=== PATIENT | male | born 1955 | race Caucasian/White ===

== ENCOUNTER 2020-07-04 20:56 | Emergency (ER) | payer MEDICARE, OTHER ==
--- NOTE | 2020-07-04 21:10 | ED Physician Documentation ---
PD HPI DYSPNEA - Stated complaint Stated Complaint: SOA - History obtained from History obtained from: Patient - History of Present Illness Timing - onset: How many days ago (4) Timing - duration: Days Timing - details: Gradual onset Pain level max: 0 Pain level now: 0 Inciting event(s): Out of meds (ran out of lasix 4 days ago) Improved by: Rest Worsened by: Exertion, Laying flat Associated symptoms: Bilateral edema. No: Fever, Cough, Hemoptysis, Chest pain / discomfort Recently seen: Not recently seen - Additional information Additional information: c/o gradual onset dyspnea four days ago without apparent inciting event. dyspnea has gradually been worsening. it is worse with lying supine. Patient uses 2 L/min NC day/night, with CPAP when he sleeps. he ran out of lasix 4 days ago; he says he takes 2 tablets of 40mg lasix BID (I reviewed this dose with him twice and he says he is certain he takes 80mg BID for total of 160mg per day). He denies chest pain, fever, cough. Review of Systems Constitutional: denies: Fever, Chills, Sweats Cardiac: reports: Pedal edema. denies: Chest pain / pressure, Palpitations Respiratory: reports: Dyspnea, Cough. denies: Wheezing GI: reports: Reviewed and negative : denies: Dysuria, Frequency Musculoskeletal: reports: Extremity swelling PD PAST MEDICAL HISTORY - Past Medical History Cardiovascular: Hypertension, High cholesterol Respiratory: Sleep apnea, CPAP use Endocrine/Autoimmune: Type 2 diabetes GI: Hiatal hernia : Frequency HEENT: None Musculoskeletal: Osteoarthritis, Chronic back pain Derm: Other - Past Surgical History General: Hiatal hernia repair - Present Medications Home Medications: Ambulatory Orders Medication Instructions Recorded Confirmed Amlodipine Besylate 2.5 mg PO 02/26/14 02/26/14 Aspirin [Aspir 81] 81 mg PO 02/26/14 02/26/14 Atorvastatin Calcium [Lipitor] 80 mg PO 02/26/14 02/26/14 Fenofibrate Nanocrystallized 160 mg PO 02/26/14 02/26/14 [Triglide] Furosemide [Lasix] 40 mg PO BID 02/26/14 02/26/14 Hydrochlorothiazide 50 mg PO 02/26/14 02/26/14 Insulin Aspart (Vial) [NovoLOG] 10 unit SUBQ ONCE 02/26/14 02/26/14 Insulin Glargine,Hum.rec.anlog 100 unit SQ 02/26/14 02/26/14 [Lantus] Losartan [Cozaar] 50 mg PO DAILY 02/26/14 02/26/14 Albuterol Sulf [Ventolin Hfa 1 - 2 puffs INH Q4HR PRN #1 inhaler 07/05/20 Inhaler] Cephalexin [Keflex] 500 mg PO Q6H #28 capsule 07/05/20 Furosemide [Lasix] 80 mg PO BID #10 tablet 07/05/20 predniSONE [Prednisone] 40 mg PO DAILY 3 Days #6 tablet 07/05/20 - Allergies Allergies/Adverse Reactions: Allergies Allergy/AdvReac Type Severity Reaction Status Date / Time No Known Drug Allergies Allergy Verified 07/04/20 21:10 PD ED PE NORMAL - Vitals Vital signs reviewed: Yes - General General: Alert and oriented X 3, No acute distress, Other (obese) - HEENT HEENT: Moist mucous membranes - Neck Neck: Supple, no meningeal sign - Cardiac Cardiac: RRR, No murmur - Respiratory Respiratory: No respiratory distress - Abdomen Abdomen: Soft, Non tender - Derm Derm: Normal color, Warm and dry PD ED PE EXPANDED - Respiratory Respiratory: Wheezing (bilateral end-expiratory), Decreased breath sounds - Extremities Extremities: Pedal edema bilateral Results - Vitals Vitals: Vital Signs - 24 hr 07/04/20 07/04/20 07/04/20 21:10 21:46 23:04 Temperature 37.2 C Heart Rate 66 64 65 Respiratory 20 22 16 Rate Blood Pressure 183/87 H 160/135 H O2 Saturation 93 92 07/04/20 07/05/20 23:30 03:00 Temperature Heart Rate 67 77 Respiratory 18 16 Rate Blood Pressure 155/101 H O2 Saturation 91 L Oxygen O2 Source Room air Oxygen Flow Rate 1.5 - EKG (time done) No standard instances Rate: Rate (enter#) (57) Rhythm: NSR [place]: Normal Intervals: Normal IN QRS: Normal Ischemia: Normal ST segments ( ) - Labs Labs: Laboratory Tests 07/04/20 07/04/20 07/04/20 21:40 21:40 21:40 WBC 7.9 RBC 4.93 Hgb 13.3 L Hct 43.8 MCV 88.8 MCH 27.0 MCHC 30.4 L RDW 15.7 H Plt Count 186 MPV 9.3 Neut # (Auto) 5.9 Lymph # (Auto) 1.3 L [place] # (Auto) 0.4 Eos # (Auto) 0.2 Baso # (Auto) 0.0 Absolute Nucleated RBC 0.00 Nucleated RBC % 0.0 D-Dimer 278.4 H Sodium 141 Potassium 4.3 Chloride 100 L Carbon Dioxide 33 H Anion Gap 8.0 BUN 21 H Creatinine 0.9 Estimated GFR (MDRD) 84 L Glucose 180 H Calcium 9.1 Total Bilirubin 0.8 AST 18 ALT 20 Alkaline Phosphatase 85 Troponin I High Sens B-Natriuretic Peptide Total Protein 7.1 Albumin 3.3 Globulin 3.8 Albumin/Globulin Ratio 0.9 L Lipase 32 Urine Color Urine Clarity Urine pH Ur Specific [place] Urine Protein Urine Glucose (UA) Urine Ketones Urine Occult Blood Urine Nitrite Urine Bilirubin Urine Urobilinogen Ur Leukocyte Esterase Urine RBC Urine WBC Ur Squamous Epith Cells Urine Bacteria Ur Microscopic Review Urine Culture Comments 07/04/20 07/04/20 07/04/20 21:40 21:40 22:21 WBC RBC Hgb Hct MCV MCH MCHC RDW Plt Count MPV Neut # (Auto) Lymph # (Auto) [place] # (Auto) Eos # (Auto) Baso # (Auto) Absolute Nucleated RBC Nucleated RBC % D-Dimer Sodium Potassium Chloride Carbon Dioxide Anion Gap BUN Creatinine Estimated GFR (MDRD) Glucose Calcium Total Bilirubin AST ALT Alkaline Phosphatase Troponin I High Sens 16.4 B-Natriuretic Peptide 190 H Total Protein Albumin Globulin Albumin/Globulin Ratio Lipase Urine Color YELLOW Urine Clarity CLEAR Urine pH 6.0 Ur Specific [place] >=1.030 H Urine Protein 100 H Urine Glucose (UA) 250 H Urine Ketones NEGATIVE Urine Occult Blood TRACE-LYSE Urine Nitrite NEGATIVE Urine Bilirubin NEGATIVE Urine Urobilinogen 0.2 (NORMAL) Ur Leukocyte Esterase NEGATIVE Urine RBC 0-5 Urine WBC 0-3 Ur Squamous Epith Cells RARE Squamous Urine Bacteria None Seen Ur Microscopic Review INDICATED Urine Culture Comments NOT INDICATED - Rads (name of study) chest xray Radiology: Prelim report reviewed, See rad report PD MEDICAL DECISION MAKING - ED course Complexity details: reviewed results, re-evaluated patient, considered differential, d/w patient ED course: patient says his baseline pulse ox is mid/upper 80s-lower/mid 90s on 2 liters NC. On reevaluation after duoneb, IV lasix, and decadron, he has no wheezing and has improved aeration/breath sounds on auscultation. He has no evidence of emergent acute process, but given his symptom onset correlating with running out of lasix and large amount of BLE edema, will give dose of lasix and rx his outpatient lasix (I explained to him that I would only provide 5 days of this, as the dose seems particularly high and without seeing the actual prescription, I cannot be certain he is getting his dose correct). Given prednisone and albuterol MDI rx for possible COPD exacerbation. He was recently treated inpatient at another facility for right knee infection and he is worried this is the cause of some of his symptoms. He has no evidence of right knee infection, although his right ankle has confluent erythema and increased warmth to touch, and reasonable to treat this as cellulitis (thus given rocephin in ED and rx keflex). He was ambulatory in ED (to and from bathroom, then up/down hallway) without obvious respiratory distress or drop in pulse ox below what he says is approximating his baseline pulse ox. Departure - Departure Disposition: 01 Home, Self Care Clinical Impression: COPD exacerbation Cellulitis Qualifiers: Site of cellulitis: extremity Site of cellulitis of extremity: lower extremity Laterality: right Qualified Code(s): L03.115 - Cellulitis of right lower limb Condition: Good Instructions: ED Infec Skin Cellulitis, ED COPD Flare Prescriptions: Albuterol Sulf [Ventolin Hfa Inhaler] 1 - 2 puffs INH Q4HR PRN #1 inhaler PRN Reason: Shortness Of Air/Wheezing Cephalexin [Keflex] 500 mg PO Q6H #28 capsule Furosemide [Lasix] 80 mg PO BID #10 tablet predniSONE [Prednisone] 40 mg PO DAILY 3 Days #6 tablet Discharge Date/Time: 07/05/20 03:00
[2020-07-04] MEDS ORDERED: IPRATROPIUM/ALBUTEROL 3 ML NEB INH STA (21:31)
[2020-07-04 21:51] LABS: BASOPHILS % (AUTO) 0.5 %; EOSINOPHILS # (AUTO) 0.2 10^3/uL (0.0-0.7); EOSINOPHILS % (AUTO) 1.9 %; HGB - HEMOGLOBIN 13.3 g/dL (14.0-18.0); LYMPHOCYTES # (AUTO) 1.3 10^3/uL (1.5-3.5); LYMPHOCYTES % (AUTO) 15.9 %; MEAN CORPUSCULAR HGB CONC 30.4 g/dL (32.0-36.0); MEAN CORPUSCULAR VOLUME 88.8 fL (80.0-94.0); MEAN PLATELET VOLUME 9.3 fL (7.4-11.4); MONOCYTES # (AUTO) 0.4 10^3/uL (0.0-1.0); MONOCYTES % (AUTO) 5.5 %; NEUTROPHILS # (AUTO) 5.9 10^3/uL (1.5-6.6); NEUTROPHILS % (AUTO) 75.3 %; PLT - PLATELET COUNT 186 10^3/uL (130-450); RED BLOOD COUNT 4.93 10^6/uL (4.70-6.10); RED CELL DISTRIBUTION WIDTH 15.7 % (12.0-15.0); WHITE BLOOD COUNT 7.9 x10^3/uL (4.8-10.8)
[2020-07-04 22:10] LABS: ALBUMIN 3.3 g/dL (3.2-5.5); ALBUMIN/GLOBULIN RATIO 0.9 (1.0-2.2); BILIRUBIN,TOTAL 0.8 mg/dL (0.2-1.0); CALCIUM 9.1 mg/dL (8.5-10.3); CREATININE 0.9 mg/dL (0.6-1.2); TOTAL PROTEIN 7.1 g/dL (6.7-8.2)
[2020-07-04 22:28] LABS: BILIRUBIN,URINE NEGATIVE (NEGATIVE); GLUCOSE, URINE (UA) 250 mg/dL (NEGATIVE); KETONES,URINE (UA) NEGATIVE (NEGATIVE); LEUKOCYTE ESTERASE, URINE NEGATIVE (NEGATIVE); NITRITE,URINE NEGATIVE (NEGATIVE); OCCULT BLOOD,URINE TRACE-LYSE (NEGATIVE); PROTEIN,URINE 100 mg/dL (NEGATIVE); UROBILINOGEN,URINE 0.2 (NORMAL) E.U./dL (NORMAL)
[2020-07-04 22:30] LABS: CLARITY,URINE CLEAR (CLEAR)
[2020-07-04 22:36] LABS: BACTERIA,URINE None Seen /HPF (None Seen); RBC,URINE 0-5 /HPF (0-5); SQUAMOUS EPITHELIAL CELL,UR RARE Squamous (<= Few)
[2020-07-04] MEDS ORDERED: cefTRIAXone 1 GM in SODIUM CHLORIDE 0.9% MINIBAG 100 ML IV STA (23:39)
[2020-07-04] MEDS ORDERED: ALBUTEROL NEB 2.5 MG/3 ML INH STA (23:39)
[2020-07-04] MEDS ORDERED: DEXAMETHASONE 10 MG/ML VIAL IVP STA (23:39)
[2020-07-04] MEDS ORDERED: FUROSEMIDE 40 MG/4 ML VIAL IVP STA (23:40)
[2020-07-04] MEDS ORDERED: cefTRIAXone 1 GM VIAL ONE (23:48)
[2020-07-05 03:12] VITALS: BP 155/101
--- NOTE | 2020-07-05 10:34 | XRAY Report ---
PROCEDURE: Chest 2 View X-Ray INDICATIONS: dyspnea TECHNIQUE: 2 view(s) of the chest. COMPARISON: None. FINDINGS: Surgical changes and devices: None. Lungs and pleura: There is trace blunting of the costophrenic angle seen on the lateral view. No pneu mothorax is seen. Interstitial prominence is seen. No focal infiltrates are seen. Mediastinum: Mediastinal contours are normal. Heart size is moderately enlarged. Bones and chest wall: No suspicious bony abnormalities. Age-appropriate degenerative changes are se en. Soft tissues appear unremarkable. IMPRESSION: Cardiomegaly, interstitial prominence, and trace pleural effusions. Please consider janae estive heart failure. Note: No significant discrepancy from the preliminary report. Reviewed by: Delfino Stokes MD on 07/05/2020 9:33 AM MOMO Approved by: Delfino Stokes MD on 07/05/2020 9:33 AM MOMO Station ID: [id number]
== END 2020-07-05 03:00 | disposition home or self-care (01) ==
LOC: ED 20:56
DX: J44.1 Chronic obstructive pulmonary disease with (acute) exacerbation (principal); L03.115 Cellulitis of right lower limb; R60.0 Localized edema; I10 Essential (primary) hypertension; E11.9 Type 2 diabetes mellitus without complications; Z79.4 Long term (current) use of insulin; Z79.82 Long term (current) use of aspirin
CPT/HCPCS: 36415; 71046; 80053; 81001; 81003; 83690; 83880; 84484; 85025; 85379; 87086; 93005; 94640; 96365; 96375; 99284

== ENCOUNTER 2020-12-31 22:10 | Emergency (ER) | payer MEDICARE, OTHER ==
--- NOTE | 2020-12-31 22:20 | ED Physician Documentation ---
PD HPI DYSPNEA - Stated complaint Stated Complaint: SOA,LOW ENERGY - History obtained from History obtained from: Patient - History of Present Illness Timing - onset: How many days ago (4) Timing - details: Gradual onset, Waxing and waning Pain level now: 0 Inciting event(s): Other (no apparent inciting event). No: Out of meds Improved by: Rest Worsened by: Exertion Associated symptoms: Bilateral edema (chronic). No: Fever, Cough, Wheezing, Chest pain / discomfort, Palpitations Recently seen: Not recently seen - Additional information Additional information: per patient, "my oxygen level in my blood is mid/upper 90s but when I walk" (around in his house) "it drops to mid 70s and I can't breathe". Patient uses oxygen at home but he says he does not know his pulmonary diagnosis (I ask why he uses oxygen and he says "because I get short of breath"; I ask why he gets short of breath and he says "I don't know"). He denies chest pain. He says he has an establishing (first-time) appointment with a PMD on [facility] in 1 week. He moved from [place] 5 months ago but had been getting prescriptions from his PMD back in [place]. Review of Systems Constitutional: reports: Fatigue. denies: Fever, Chills, Sweats Cardiac: reports: Pedal edema. denies: Chest pain / pressure, Calf pain Respiratory: reports: Dyspnea. denies: Cough, Hemoptysis, Wheezing GI: reports: Diarrhea. denies: Abdominal Pain, Abdominal Swelling, Nausea, Vomiting : denies: Dysuria, Frequency Musculoskeletal: reports: Reviewed and negative Neurologic: reports: Headache. denies: Focal weakness, Numbness PD PAST MEDICAL HISTORY - Past Medical History Cardiovascular: Hypertension, High cholesterol Respiratory: Sleep apnea, CPAP use Endocrine/Autoimmune: Type 2 diabetes GI: Hiatal hernia : Frequency HEENT: None Musculoskeletal: Osteoarthritis, Chronic back pain Derm: Other - Past Surgical History General: Hiatal hernia repair - Present Medications Home Medications: Ambulatory Orders Medication Instructions Recorded Confirmed Amlodipine Besylate 2.5 mg PO DAILY 02/26/14 12/31/20 Aspirin [Aspir 81] 81 mg PO DAILY 02/26/14 12/31/20 Atorvastatin Calcium [Lipitor] 80 mg PO DAILY 02/26/14 12/31/20 Furosemide [Lasix] 40 mg PO BID 02/26/14 12/31/20 Insulin Glargine,Hum.rec.anlog 100 unit SQ DAILY 02/26/14 12/31/20 [Lantus] Losartan [Cozaar] 50 mg PO DAILY 02/26/14 12/31/20 Albuterol Sulf [Ventolin Hfa 1 - 2 puffs INH Q4HR PRN #1 inhaler 07/05/20 12/31/20 Inhaler] Furosemide [Lasix] 80 mg PO BID #10 tablet 07/05/20 12/31/20 Glipizide 10 mg PO BID 12/31/20 12/31/20 Metformin HCl [Fortamet] 1,000 mg PO BID 12/31/20 12/31/20 Tamsulosin [Flomax] 0.4 mg PO DAILY 12/31/20 12/31/20 - Allergies Allergies/Adverse Reactions: Allergies Allergy/AdvReac Type Severity Reaction Status Date / Time No Known Drug Allergies Allergy Verified 12/31/20 22:22 PD ED PE NORMAL - Vitals Vital signs reviewed: Yes - General General: Alert and oriented X 3, No acute distress, Well developed/nourished - HEENT HEENT: Moist mucous membranes - Neck Neck: Supple, no meningeal sign - Cardiac Cardiac: RRR - Respiratory Respiratory: No respiratory distress, Other (diminshed breath sounds bilaterally without wheeze, rales, rhonchi) - Abdomen Abdomen: Normal bowel sounds, Soft, Non tender, Non distended - Derm Derm: Normal color, Warm and dry PD ED PE EXPANDED - Cardiac Cardiac: Murmur Present (2/6 GATO at cardiac base) - Extremities Extremities: Pedal edema bilateral Results - Vitals Vitals: Vital Signs - 24 hr 12/31/20 12/31/20 12/31/20 22:18 22:21 23:14 Temperature 36.5 C 36.5 C 36.5 C Heart Rate 67 67 62 Respiratory 19 22 19 Rate Blood Pressure 128/100 H 128/100 H 145/89 H O2 Saturation 100 100 96 01/01/21 00:19 Temperature 36.5 C Heart Rate 65 Respiratory 19 Rate Blood Pressure 128/78 O2 Saturation 96 Oxygen O2 Source Nasal cannula Oxygen Flow Rate 3 - EKG (time done) No standard instances Rate: Rate (enter#) (61) Rhythm: NSR [place]: Normal Intervals: Prolonged NM, QRS normal QRS: Normal Ischemia: Normal ST segments - Labs Labs: Laboratory Tests 12/31/20 12/31/20 12/31/20 22:35 22:35 22:35 WBC 7.5 RBC 4.66 L Hgb 12.6 L Hct 44.0 MCV 94.4 H MCH 27.0 MCHC 28.6 L RDW 16.0 H Plt Count 214 MPV 9.7 Neut # (Auto) 5.3 Lymph # (Auto) 1.5 [place] # (Auto) 0.5 Eos # (Auto) 0.2 Baso # (Auto) 0.0 Absolute Nucleated RBC 0.00 Nucleated RBC % 0.0 Platelet Estimate NORMAL (130-450,000) Platelet Morphology NORMAL APPEARANCE RBC Morph Micro Appear NORMAL APPEARANCE Sodium 139 Potassium 4.5 Chloride 93 L Carbon Dioxide 38 H Anion Gap 8.0 BUN 27 H Creatinine 1.0 Estimated GFR (MDRD) 75 L Glucose 193 H Calcium 8.7 Total Bilirubin 1.1 H AST 16 ALT 24 Alkaline Phosphatase 86 B-Natriuretic Peptide 153 H Total Protein 7.1 Albumin 3.4 Globulin 3.7 Albumin/Globulin Ratio 0.9 L Lipase 28 - Rads (name of study) chest xray Radiology: Prelim report reviewed, See rad report PD MEDICAL DECISION MAKING - ED course Complexity details: reviewed old records, reviewed results, re-evaluated patient , considered differential, d/w patient ED course: patient is in NAD during ED stay with pulse ox on 2 liter NC consistently in upper 90s. He speaks in full sentences (no respiratory distress). Tonight's tests do not reveal any emergently concerning findings, with some results being comparable to previous (trace pleural effusion also on previous CXR, for example). I reviewed results of tests w/ patient and he is reassured by these findings. He will likely need further testing, but at this time this testing can be undertaken in the outpatient setting (for example, might benefit from echo US if not performed recently; patient says he does not recall). He is given a dose of decadron in ED for possible COPD exacerbation although, as noted in HPI, he does not know his pulmonary diagnosis. There is no evidence of fluid overload (CHF exacerbation) at this time, no evidence of infectious process. Departure - Departure Disposition: 01 Home, Self Care Clinical Impression: Dyspnea Condition: Good Instructions: ED Dyspnea Shortness of Breath Follow-Up: Jose Courtney MD [Primary Care Provider] - Comments: As we discussed, the results of tonight's tests do not show any concerning nor specific findings; the few, minor abnormalities are similar to previous findings when you were here in June. Follow up as scheduled with your doctor (call on Sunday to inquire as to possibly moving to a sooner appointment). Discharge Date/Time: 01/01/21 00:19
[2020-12-31] MEDS ORDERED: DEXAMETHASONE 10 MG/ML VIAL IVP STA (22:34)
[2020-12-31 22:48] LABS: BASOPHILS % (AUTO) 0.4 %; EOSINOPHILS # (AUTO) 0.2 10^3/uL (0.0-0.7); EOSINOPHILS % (AUTO) 2.3 %; HGB - HEMOGLOBIN 12.6 g/dL (14.0-18.0); LYMPHOCYTES # (AUTO) 1.5 10^3/uL (1.5-3.5); LYMPHOCYTES % (AUTO) 19.4 %; MEAN CORPUSCULAR HGB CONC 28.6 g/dL (32.0-36.0); MEAN CORPUSCULAR VOLUME 94.4 fL (80.0-94.0); MEAN PLATELET VOLUME 9.7 fL (7.4-11.4); MONOCYTES # (AUTO) 0.5 10^3/uL (0.0-1.0); MONOCYTES % (AUTO) 6.4 %; NEUTROPHILS # (AUTO) 5.3 10^3/uL (1.5-6.6); PLT - PLATELET COUNT 214 10^3/uL (130-450); RED BLOOD COUNT 4.66 10^6/uL (4.70-6.10); WHITE BLOOD COUNT 7.5 x10^3/uL (4.8-10.8)
[2020-12-31 22:53] LABS: ALBUMIN 3.4 g/dL (3.2-5.5); ALBUMIN/GLOBULIN RATIO 0.9 (1.0-2.2); BILIRUBIN,TOTAL 1.1 mg/dL (0.2-1.0); CALCIUM 8.7 mg/dL (8.5-10.3); POTASSIUM 4.5 mmol/L (3.5-5.0); TOTAL PROTEIN 7.1 g/dL (6.7-8.2)
[2020-12-31 23:08] LABS: PLATELET ESTIMATE, MANUAL NORMAL (130-450,000) (NORMAL); PLATELET MORPHOLOGY NORMAL APPEARANCE (NORMAL); RBC MORPHOLOGY (MULTIPLE) NORMAL APPEARANCE (NORMAL)
[2021-01-01 00:22] VITALS: BP 128/78
--- NOTE | 2021-01-01 08:54 | XRAY Report ---
PROCEDURE: Chest 2 View X-Ray INDICATIONS: dyspnea TECHNIQUE: 2 view(s) of the chest. COMPARISON: 07/04/2020. FINDINGS: Surgical changes and devices: None. Lungs and pleura: Small left pleural effusion. Diffuse interstitial prominence. No acute focal infilt rates. Mediastinum: Mediastinal contours are normal. Stable cardiomegaly. Bones and chest wall: No suspicious bony abnormalities. Soft tissues appear unremarkable. IMPRESSION: Cardiomegaly, interstitial prominence, small left pleural effusion. Consider mild conges tive heart failure. A preliminary report with the above findings was provided at the time of the study by [facility]. Reviewed by: Papito Kaminski MD on 01/01/2021 7:52 AM RUST Approved by: Papito Kaminski MD on 01/01/2021 7:52 AM RUST Station ID: [id number]
== END 2021-01-01 00:19 | disposition home or self-care (01) ==
LOC: ED 22:10
DX: R06.00 Dyspnea, unspecified (principal); R94.31 Abnormal electrocardiogram [ECG] [EKG]; J90 Pleural effusion, not elsewhere classified; I51.7 Cardiomegaly; Z99.81 Dependence on supplemental oxygen; E11.9 Type 2 diabetes mellitus without complications; Z79.4 Long term (current) use of insulin
CPT/HCPCS: 36415; 80053; 83690; 83880; 85025; 93005; 96374; 99284

== ENCOUNTER 2021-01-11 20:08 | Outpatient (CLI) | payer MEDICARE, OTHER | END 2021-01-11 20:09 | disposition critical access hospital (66) | LOC: EMS 20:08 | PROVIDERS: ATTEND Emergency Medicine | DX: R53.83 Other fatigue (principal); R41.0 Disorientation, unspecified; R25.1 Tremor, unspecified | CPT/HCPCS: A0425; A0429 ==

== ENCOUNTER 2021-01-11 20:39 | Inpatient (IN) | payer MEDICARE, OTHER ==
--- NOTE | 2021-01-11 21:25 | ED Physician Documentation ---
History of Present Illness - Stated complaint Stated Complaint: HYPOGLYCEMIA - Chief complaint Chief Complaint: Neuro - History obtained from History obtained from: Patient, Family (son) - Additonal information Additional information: 65-year-old man with history of obstructive sleep apnea, on home CPAP, COPD on 2 L home oxygen, diabetes on 70 mg Lantus twice daily presents with acute lethargic episode this evening. History from patient limited by slight confusion, and he is only able to tell me he feels some shortness of breath, therefore initial history was obtained from EMS and from son. d/w son - The patient moved here in May from [place]. He is establishing care for the first time with Dr. Courtney in [place] this . Apparently the patient has been struggling to remember to take his meds. Son called the patient around 10am today and asked if he took his meds and he said he did, but then on arrival this evening son saw his dad didn't take his morning meds. He also has been having trouble remembering to take his insulin and also taking increasing doses (100 U instead of 70). Son describes it as a "Downward spiral all month". On arrival tonight he saw patient staring at wall, groggy. He was struggling to hold a cup of water and speaking slowly. Milk was also spilled on the floor as if he had dropped it. Son gave him his 70 U of insulin and then called 911. The patient then grabbed an apple and ate it and was speaking to paramedics on scene with fingerstick 131. Patient more alert after being placed on oxygen and sitting up. He is now able to tell us he has had progressive sob the past couple weeks with BASS and o2 sat dropping into the 70s and 80s intermittently. Denies fevers or cough, but does endorse increased wheezing intermittently. Unclear whether he is using his inhaler appropriately. Review of Systems Ten Systems: 10 systems reviewed and negative Constitutional: reports: Fatigue. denies: Fever, Chills Cardiac: denies: Chest pain / pressure Respiratory: reports: Dyspnea. denies: Cough Neurologic: reports: Generalized weakness, Confused, Altered mental status PD PAST MEDICAL HISTORY - Past Medical History Past Medical History: Yes Cardiovascular: Hypertension, High cholesterol Respiratory: Sleep apnea, CPAP use Endocrine/Autoimmune: Type 2 diabetes GI: Hiatal hernia : Frequency HEENT: None Musculoskeletal: Osteoarthritis, Chronic back pain Derm: Other - Past Surgical History Past Surgical History: Yes General: Hiatal hernia repair - Present Medications Home Medications: Ambulatory Orders Medication Instructions Recorded Confirmed Amlodipine Besylate 2.5 mg PO DAILY 02/26/14 01/11/21 Aspirin [Aspir 81] 81 mg PO DAILY 02/26/14 01/11/21 Atorvastatin Calcium [Lipitor] 80 mg PO DAILY 02/26/14 01/11/21 Furosemide [Lasix] 40 mg PO BID 02/26/14 01/11/21 Insulin Glargine,Hum.rec.anlog 100 unit SQ DAILY 02/26/14 01/11/21 [Lantus] Losartan [Cozaar] 50 mg PO DAILY 02/26/14 01/11/21 Albuterol Sulf [Ventolin Hfa 1 - 2 puffs INH Q4HR PRN #1 inhaler 07/05/20 01/11/21 Inhaler] Furosemide [Lasix] 80 mg PO BID #10 tablet 07/05/20 01/11/21 Glipizide 10 mg PO BID 12/31/20 01/11/21 Metformin HCl [Fortamet] 1,000 mg PO BID 12/31/20 01/11/21 Tamsulosin [Flomax] 0.4 mg PO DAILY 12/31/20 01/11/21 - Allergies Allergies/Adverse Reactions: Allergies Allergy/AdvReac Type Severity Reaction Status Date / Time No Known Drug Allergies Allergy Verified 01/11/21 21:17 - Social History Does the pt smoke?: No Smoking Status: Never smoker Does the pt drink ETOH?: Yes Does the pt have substance abuse?: No - Immunizations Immunizations are current?: Yes PD ED PE NORMAL - Vitals Vital signs reviewed: Yes - General General: Alert and oriented X 3, No acute distress, Other (morbidly obese) - HEENT HEENT: Atraumatic, PERRL, EOMI, Moist mucous membranes - Neck Neck: Supple, no meningeal sign - Cardiac Cardiac: RRR - Respiratory Respiratory: Other (BL distant breath sounds, diminished airflow, end expiratory wheezing) - Abdomen Abdomen: Non tender, Non distended - Derm Derm: Normal color, Warm and dry - Extremities Extremities: No deformity, Other (1+ BL pitting edema) - 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 On reexamination he was AOX3. slow to respond.) - Psych Psych: Normal mood, Normal affect Results - Vitals Vitals: Vital Signs - 24 hr 01/11/21 01/11/21 01/11/21 20:44 23:00 23:05 Temperature 36.7 C Heart Rate 68 55 L 56 L Respiratory 24 16 18 Rate Blood Pressure 159/70 H 131/80 H O2 Saturation 96 94 Oxygen O2 Source Nasal cannula - Labs Labs: Laboratory Tests 01/11/21 01/11/21 01/11/21 21:29 21:35 21:35 WBC 7.2 RBC 4.95 Hgb 13.2 L Hct 49.1 MCV 99.2 H MCH 26.7 L MCHC 26.9 L RDW 15.9 H Plt Count 205 MPV 9.3 Neut # (Auto) 5.4 Lymph # (Auto) 1.1 L [place] # (Auto) 0.4 Eos # (Auto) 0.1 Baso # (Auto) 0.0 Absolute Nucleated RBC 0.00 Nucleated RBC % 0.0 VBG pH VBG pCO2 VBG pO2 VBG HCO3 VBG Total CO2 VBG O2 Saturation VBG Base Excess Sodium 147 H Potassium 4.5 Chloride 88 L Carbon Dioxide > 45 H* Anion Gap 14.0 H BUN 24 H Creatinine 1.0 Estimated GFR (MDRD) 75 L Glucose 141 H Calcium 9.6 Total Bilirubin 0.5 AST 16 ALT 18 Alkaline Phosphatase 91 Total Protein 7.5 Albumin 3.3 Globulin 4.2 Albumin/Globulin Ratio 0.8 L Lipase 32 Urine Color YELLOW Urine Clarity CLEAR Urine pH 5.5 Ur Specific [place] >=1.030 H Urine Protein 100 H Urine Glucose (UA) 100 H Urine Ketones NEGATIVE Urine Occult Blood NEGATIVE Urine Nitrite NEGATIVE Urine Bilirubin NEGATIVE Urine Urobilinogen 0.2 (NORMAL) Ur Leukocyte Esterase NEGATIVE Urine RBC 0-5 Urine WBC 0-3 Ur Squamous Epith Cells RARE Squamous Urine Crystals 0-2 Calcium Oxalate Urine Bacteria Rare Urine Casts 6-10 Hyaline Casts Ur Microscopic Review INDICATED Urine Culture Comments NOT INDICATED 01/11/21 22:35 WBC RBC Hgb Hct MCV MCH MCHC RDW Plt Count MPV Neut # (Auto) Lymph # (Auto) [place] # (Auto) Eos # (Auto) Baso # (Auto) Absolute Nucleated RBC Nucleated RBC % VBG pH 7.258 L VBG pCO2 103.3 H VBG pO2 27.7 VBG HCO3 45.1 H VBG Total CO2 48.3 H VBG O2 Saturation 55.9 L VBG Base Excess 13.1 H Sodium Potassium Chloride Carbon Dioxide Anion Gap BUN Creatinine Estimated GFR (MDRD) Glucose Calcium Total Bilirubin AST ALT Alkaline Phosphatase Total Protein Albumin Globulin Albumin/Globulin Ratio Lipase Urine Color Urine Clarity Urine pH Ur Specific [place] Urine Protein Urine Glucose (UA) Urine Ketones Urine Occult Blood Urine Nitrite Urine Bilirubin Urine Urobilinogen Ur Leukocyte Esterase Urine RBC Urine WBC Ur Squamous Epith Cells Urine Crystals Urine Bacteria Urine Casts Ur Microscopic Review Urine Culture Comments PD MEDICAL DECISION MAKING - ED course Complexity details: reviewed results, d/w patient, d/w family ED course: 65-year-old man presents with acute CO2 retention and confusion this evening. His chest x-ray is showing increased pleural effusions and bilateral patchy infiltrates. Respiratory viral panel sent. We are treating him for his COPD and will admit him overnight for further monitoring and care. Discussed with his son who is power of litigation attorney. Departure - Departure Disposition: 66 [facility] DC/Xfer Clinical Impression: Pleural effusion, CO2 retention, Shortness of breath, AMS (altered mental status) Condition: Stable
[2021-01-11 21:37] LABS: BILIRUBIN,URINE NEGATIVE (NEGATIVE); GLUCOSE, URINE (UA) 100 mg/dL (NEGATIVE); KETONES,URINE (UA) NEGATIVE (NEGATIVE); LEUKOCYTE ESTERASE, URINE NEGATIVE (NEGATIVE); NITRITE,URINE NEGATIVE (NEGATIVE); OCCULT BLOOD,URINE NEGATIVE (NEGATIVE); PH,URINE 5.5 PH (5.0-7.5); PROTEIN,URINE 100 mg/dL (NEGATIVE); UROBILINOGEN,URINE 0.2 (NORMAL) E.U./dL (NORMAL)
[2021-01-11 21:40] LABS: CLARITY,URINE CLEAR (CLEAR)
[2021-01-11 21:42] LABS: BASOPHILS % (AUTO) 0.4 %; EOSINOPHILS # (AUTO) 0.1 10^3/uL (0.0-0.7); HCT - HEMATOCRIT 49.1 % (42.0-52.0); HGB - HEMOGLOBIN 13.2 g/dL (14.0-18.0); LYMPHOCYTES # (AUTO) 1.1 10^3/uL (1.5-3.5); LYMPHOCYTES % (AUTO) 15.1 %; MEAN CORPUSCULAR HEMOGLOBIN 26.7 pg (27.0-31.0); MEAN CORPUSCULAR HGB CONC 26.9 g/dL (32.0-36.0); MEAN CORPUSCULAR VOLUME 99.2 fL (80.0-94.0); MEAN PLATELET VOLUME 9.3 fL (7.4-11.4); MONOCYTES # (AUTO) 0.4 10^3/uL (0.0-1.0); MONOCYTES % (AUTO) 5.9 %; NEUTROPHILS # (AUTO) 5.4 10^3/uL (1.5-6.6); PLT - PLATELET COUNT 205 10^3/uL (130-450); RED BLOOD COUNT 4.95 10^6/uL (4.70-6.10); RED CELL DISTRIBUTION WIDTH 15.9 % (12.0-15.0); WHITE BLOOD COUNT 7.2 x10^3/uL (4.8-10.8)
[2021-01-11 21:43] LABS: BACTERIA,URINE Rare /HPF (None Seen); CASTS, URINE 6-10 Hyaline Casts /LPF; CRYSTALS,URINE 0-2 Calcium Oxalate /LPF; RBC,URINE 0-5 /HPF (0-5); SQUAMOUS EPITHELIAL CELL,UR RARE Squamous (<= Few); WBC,URINE 0-3 /HPF (0-3)
[2021-01-11 22:03] LABS: ALBUMIN 3.3 g/dL (3.2-5.5); ALBUMIN/GLOBULIN RATIO 0.8 (1.0-2.2); ALKALINE PHOSPHATASE 91 IU/L (42-121); ALT ALANINE AMINOTRANSFERASE 18 IU/L (10-60); AST ASPARTATE AMINOTRANSFERASE 16 IU/L (10-42); BILIRUBIN,TOTAL 0.5 mg/dL (0.2-1.0); BUN - BLOOD UREA NITROGEN 24 mg/dL (6-20); CALCIUM 9.6 mg/dL (8.5-10.3); CHLORIDE 88 mmol/L (101-111); GFR - MDRD 75 (>89); GLUCOSE 141 mg/dL (70-100); LIPASE 32 U/L (22-51); POTASSIUM 4.5 mmol/L (3.5-5.0); SODIUM 147 mmol/L (135-145); TOTAL PROTEIN 7.5 g/dL (6.7-8.2)
[2021-01-11 22:09] LABS: CARBON DIOXIDE - CO2 > 45 mmol/L (21-32)
[2021-01-11 22:41] LABS: VBG BASE EXCESS 13.1 mmol/L (-2 - +2); VBG HCO3 45.1 mmol/L (23-28); VBG OXYGEN SATURATION 55.9 % (60-80); VBG PCO2 103.3 mmHg (41-51); VBG PH 7.258 (7.31-7.41); VBG PO2 27.7 mmHg (25-47); VBG TOTAL CO2 48.3 mmol/L (24-29)
[2021-01-11] MEDS ORDERED: IPRATROPIUM/ALBUTEROL 3 ML NEB INH STA (22:45)
[2021-01-11] MEDS ORDERED: methylPREDNISolone SUCCINATE 125 MG/2 ML VIAL IVP STA (22:46)
[2021-01-11] MEDS ORDERED: ONDANSETRON ODT 4 MG TABLET TL PRN (23:40)
[2021-01-11] MEDS ORDERED: ONDANSETRON 4 MG/2 ML VIAL IVP PRN (23:40)
[2021-01-11] MEDS ORDERED: ACETAMINOPHEN 325 MG TABLET PO PRN (23:40)
[2021-01-11] MEDS ORDERED: SODIUM CHLORIDE FLUSH 0.9% 10 ML SYRINGE IVP PRN (23:40)
[2021-01-11] MEDS ORDERED: oxyCODONE 5 MG TABLET PO PRN (23:40)
[2021-01-11] MEDS ORDERED: INSULIN GLARGINE 300 UNIT/3 ML PEN SUBQ SCH (23:45)
[2021-01-11] MEDS ORDERED: ALBUTEROL NEB 2.5 MG/3 ML INH PRN (23:45)
--- NOTE | 2021-01-11 23:53 | HISTORY & PHYSICAL EXAMINATION ---
Chief Complaint - Chief Complaint Chief Complaint: Confusion History of Present Illness - Admitted From Admitted From:: Home via EMS - History Obtained From Records Reviewed: [facility] History obtained from: Dr. Joya Exam Limitations: Patient is easily dejesus and can get confused - History of Present Illness HPI Comment/Other: He is a 65-year-old morbidly obese white male who is supposed to be on CPAP machine for obstructive sleep apnea. He tells me that he does not smoke, never did. He was just seen in the emergency room December 31 for shortness of breath and low energy. At that point in time he was desatting to the mid 70s with exertion and needed to increase his oxygen. With that visit he had a cardiac murmur, was morbidly obese. His pulse ox on 2 L was consistently in the upper 90s which is his baseline. He was speaking in full sentences without respiratory distress. Chest x-ray had no acute changes. They recommended that he follow-up with a new PCP, possibly benefit from getting an outpatient echo, and he received a dose of Decadron for possible COPD exacerbation. And he was sent home. Today, his son called him around 10 in the morning just to check up on him and make sure he took his medications. Patient has been recently struggling to remember to take his insulin and to take increasing doses. The son describes a "downward spiral" for the last few weeks. Dad just does not seem to be keeping it together. The patient tells me that he does not know why he has been going downhill. He feels like he has been going downhill for years now. First it was the BiPAP machine, then he was needing oxygen, and lately he is so short of breath with minimal activity. His oxygen keeps on reading low. He has not had any change in his medicines. He denies fever, chills, cough. Denies URI symptoms. Denies viral syndrome. It is getting harder and harder for him to do his activities of daily living due to the shortness of breath and his obesity. There is no way he can bend over to clean his legs or his feet. He does not use a cane or a walker. But he struggles to do simple things like make dinner. The son went to go check on the patient in person this evening and found him sitting down, staring at the wall, groggy, could not hold up a couple water to his mouth to drink. His speech was slow, slurred. Son could see that he had already spilled a glass of liquid on the floor. Initially his son thought that he was hypoglycemic and gave him 70 units of insulin and then called 911. He then gave his dad an apple. But fingerstick was 131. Patient tells me that he had tried to drink a glass of milk. Could not bring it up to his lips and dropped it on the floor. He was so short of breath that if his lift chair had not been right there, he would have landed on the floor not been able to get up. EMS found him to be hypoxic, sitting up. He was brought in to the emergency room where his heart rate was 68. Respirations were 24. He is 96% on room air. Blood pressure 159/70. Heart rate 68. He is 5 foot 9 inches tall and weighs 142.[address] Joya found her to be alert and oriented without any acute distress. Moist membranes. Bilateral distant breath sounds. Diminished airflow with end expiratory wheezing. He has 1+ bilateral pitting edema. Mild disorientation to date and time. Slow to respond. His white cell count was normal at 7.2. Sodium slightly elevated at 147. Carbon dioxide greater than 45. Anion gap 14. BUN 24. Glucose 141. Venous blood gas was done with 7.258, PCO2 103, PO2 27. Bicarb 45. His urine had a specific gravity of greater than 1.030. He had proteinuria, glucosuria, calcium oxalate crystals, rare bacteria, hyaline casts. No cultures indicated. Preliminary chest x-ray shows bilateral patchy infiltrates suspicious for pneumonitis and small pleural effusion. This is worse than the previous chest x-ray from December 31. His CT of head is no acute intracranial abnormality. He is a [facility] patient. We did call the NH and they do not have beds. As such the patient will be admitted here. History - Past Medical History Cardiovascular: reports: Hypertension, High cholesterol Respiratory: reports: Sleep apnea, CPAP use Endocrine/Autoimmune: reports: Type 2 diabetes GI: reports: Hiatal hernia, Other (Umbilical hernia times years) : reports: Benign prostate hypertrophy, Frequency HEENT: reports: None Musculoskeletal: reports: Osteoarthritis, Chronic back pain Derm: reports: Other MRSA Hx?: No - Past Surgical History General: reports: Hiatal hernia repair - Family & Social History Family History Comment/Other: Both mom and dad were morbidly obese, both of lung cancer, or from [place]. 3 siblings. 2 sisters were owners of fast food restaurants and of complications of severe morbid obesity. 3 kids. All of them are overweight. But nobody is diabetic, hypertensive, or has had a heart attack or stroke or cancer. Living arrangement: At home Living Situation: With family Social History Notes: From [place]. From there he went into the [employer]. When he retired from the [employer] he went back to [place], then to [place] and now here. He has been twice. both times. His second with an TIE BINDER knee. Their marriage lasted 4 to 5 years before divorce. Has 3 children from h is first marriage. Rarely drinks. No history of tobacco use. No history of recreational substance abuse. 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 DPOA is in PCP chart. His son Joce Ambriz at [phone]. #2 is Virgie Cruz at [phone]. He wants to be a full code. He use to get his care here up until 2013 and then he moved to [place]. Moved back from [place] 8 months ago and has not been able to get a PCP yet. Was supposed to meet up with Dr. Courtney this week is a new patient. - Substance History Use: Uses substance without health or social issues: NONE Abuse: Recurrent use of substance despite neg consequences: NONE Dependence: Experiences withdrawal or developed tolerances: NONE - POLST Patient has POLST: No POLST Status: Full Code Meds/Allgy - Home Medications Home Medications: Ambulatory Orders Medication Instructions Recorded Confirmed Amlodipine Besylate 2.5 mg PO DAILY 02/26/14 01/11/21 Aspirin [Aspir 81] 81 mg PO DAILY 02/26/14 01/11/21 Atorvastatin Calcium [Lipitor] 80 mg PO DAILY 02/26/14 01/11/21 Furosemide [Lasix] 40 mg PO BID 02/26/14 01/11/21 Insulin Glargine,Hum.rec.anlog 100 unit SQ DAILY 02/26/14 01/11/21 [Lantus] Losartan [Cozaar] 50 mg PO DAILY 02/26/14 01/11/21 Albuterol Sulf [Ventolin Hfa 1 - 2 puffs INH Q4HR PRN #1 inhaler 07/05/20 01/11/21 Inhaler] Furosemide [Lasix] 80 mg PO BID #10 tablet 07/05/20 01/11/21 Glipizide 10 mg PO BID 12/31/20 01/11/21 Metformin HCl [Fortamet] 1,000 mg PO BID 12/31/20 01/11/21 Tamsulosin [Flomax] 0.4 mg PO DAILY 12/31/20 01/11/21 - Allergies Allergies/Adverse Reactions: Allergies Allergy/AdvReac Type Severity Reaction Status Date / Time No Known Drug Allergies Allergy Verified 01/11/21 21:17 Review of Systems - Constitutional Constitutional: reports: Fatigue, Weakness, Poor appetite, Weight gain - Eyes Eyes: reports: Other (Goopy eyes recently) - Ears, Nose & Throat Ears, Nose & Throat: reports: Hearing loss, Nasal obstruction, Nasal congestion - Cardiovascular Cariovascular: reports: Edema, Exertional dyspnea, Decr. exercise tolerance. denies: Irregular heart rate, Palpitations, Chest pain, Lightheadedness, Syncope - Respiratory Respiratory: reports: Cough, Wheezing, Snoring, Orthopnea, SOB at rest, SOB with exertion. denies: Sputum production - Gastrointestinal Gastrointestinal: denies: Abdominal pain, Abdominal distention, Constipation, Diarrhea, Change in bowel habits, Rectal bleeding - Genitourinary Genitourinary: reports: Frequency, Urgency, Incontinence, Nocturia. denies: Dysuria - Musculoskeletal Musculoskeletal: denies: Muscle pain, Back pain, Muscle aches, Stiffness, Gout, Joint pain - Integumentary Integumentary: reports: Rash (Thick, cracked skin on legs for years now), Pruritis (Of shins and feet) - Neurological Neurological: reports: General weakness, Memory problems. denies: Focal weakness, Headache, Dizziness - Psychiatric Psychiatric: denies: Depression, Anxiety, Suicidal - Endocrine Endocrine: reports: Intolerance to cold. denies: Polyuria, Polydypsia, Polyphagia - Hematologic/Lymphatic Hematologic/Lymphatic: denies: Anemia, Bruising Prior Level of Functionality: Lives alone. Independent with going to the bathroom, dressing himself, feeding himself. Son does help him get to appointments and go get his groceries and medications. Exam - Vital Signs Reviewed Vital Signs: Yes Vital Signs: Vital Signs x48h Temp Pulse Resp BP Pulse Ox 01/11/21 23:05 56 L 18 131/80 H 94 01/11/21 23:00 55 L 16 01/11/21 20:44 36.7 C 68 24 159/70 H 96 - Physical Exam General Appearance: positive: Moderate distress, Other (He is brought from the emergency room in a wheelchair, he is nonstop shaking from the cold, alert, low baritone voice and a very disheveled, bad smelling man with long hair and pichardo) Eyes Bilateral: positive: PERRL, Other (Sclera edematous, yellow, and injected). negative: Conjunctivae nml (Yellow-white exudate all along) ENT: positive: Pharyngeal erythema, Dry mucous membranes Neck: positive: Lymphadenopathy (R), Lymphadenopathy (L). negative: Stiff neck, Carotid bruit, Swelling/bruising, Tracheal deviation Respiratory: positive: Wheezes, Other (Mod tachypnea. Able to complete full sentences and speaks to me but loses his train of thought because of memory). negative: Rales, Rhonchi Cardiovascular: positive: Regular rate & rhythm, Tachycardia, Systolic murmur. negative: Gallop/S4, Friction rub Peripheral Pulses: positive: 0 Abdomen: positive: Non-tender, Other (Huge, huge abdominal pannus. Numerous vertical stretch coughlin over the lower abdomen. Unable to assess for organomegaly because of the large pannus. Nontender, nondistended, quiet bowel sounds. Easily reducible umbilical hernia.) Skin: positive: Other (Resolving Sil rash of intertriginous folds of both sides of groin. Edematous phymosis of penis. Mild scrotal edema.) Extremities: positive: Pedal edema (Skin is thickened from below the knee down with hardened, flaking gallardo to brown cracked skin. Mild redness of the skin from mid real down. Dirt caked between toes and under toenails. Very malodorous feet. But no open wounds, no lacerations, no ulcers.). negative: Calf tenderness Neurologic/Psychiatric: positive: Oriented x3, CN's nml (2-12), Motor nml (Tremors where he shakes from the cold. Able to stand up from the wheelchair by holding onto the respiratory therapist and pulling himself up out of the chair. Stands, walks 2 shuffling steps to turn around and sit down on the bed. Has t o rest because of severe dyspnea then stands again to then sc), Weakness Conclusion/Plan - Problem List (1) Metabolic encephalopathy Conclusion/Plan: From hypercapnia. Psychomotor slowing, confusion, foggy thinking present. Plan: Inpatient admit to ICU Treat hypercapnia with BiPAP (2) Acute respiratory failure with hypoxia and hypercapnia Conclusion/Plan: Due to obstructive sleep apnea, possible pneumonia. Plan: Admission to ICU, BiPAP (3) Abnormal chest xray Conclusion/Plan: Lateral patchy infiltrates. Not necessarily atelectasis on exam. Worse than his December 31 chest x-ray for his ED visit then. Also associated with Small p leural effusions today. Since part of the differential diagnosis would be pneumonia, will treat with community-acquired pneumonia antibiotics in the form of Rocephin and azithromycin. Check BNP. Check echocardiogram. (4) YONATAN on CPAP Conclusion/Plan: Patient has a long history of this. Not a new diagnosis. Do not know his compliance. (5) Obesity hypoventilation syndrome Conclusion/Plan: Severely obese. From a differential disease perspective, this would most certainly be contributing to his hypercapnia associated with his obstructive sleep apnea as well. Treatment would be weight loss, exercise, nightly BiPAP. 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 Plan: Start Lantus at night Sliding scale insulin Watch glucose closely since he Received steroids in the emergency room. He was initially being treated as a COPD exacerbation on December 31. However the patient is a non-smoker does not have a history of COPD. His hypercapnia is most likely due to the YONATAN. As such no steroids. No Metformin while he is here No glipizide while here Check BMP. If sodium continues to climb, change to half-normal saline. (7) Conjunctivitis Qualifiers: Conjunctivitis type: blepharoconjunctivitis Blepharoconjunctivitis type: unspecified Laterality: bilateral Qualified Code(s): H10.503 - Unspecified blepharoconjunctivitis, bilateral (8) Home help needed Conclusion/Plan: Social work consult. This gentleman needs help at home. Gradually failing with regards to his respiratory status leading to more and more sedentary state with poor hygiene, increased memory loss where he cannot control his glucose. He may need to go to detention facility after this. But I would like to have social work see what his options are since he is retired . (9) Super obesity Conclusion/Plan: He recognizes that part of his downward spiral has to do with decreasing mobility from his obesity, increased respiratory distress from his obesity, and uncontrolled diabetes. Plan: Nutrition support Some type of rehab for exercise (10) HTN (hypertension) Conclusion/Plan: At home he is on amlodipine, losartan. Amlodipine would not increase his pedal edema. But will resume those medications Qualifiers: Hypertension type: essential hypertension Qualified Code(s): I10 - Essential (primary) hypertension - Lab Results Lab results reviewed: Yes Fish Bones: 01/11/21 21:35 01/11/21 21:35 - Diagnostic Imaging Results Diagnostic Imaging Results: positive: Prelim report reviewed Core Measures - Anticipated LOS I expect patient to be DC'd or transferred within 96 hours.: Yes - DVT/VTE - Prophylaxis VTE/DVT Device ordered at admit?: Yes
[2021-01-12 00:08] LABS: B. PARAPERTUSSIS- RESP PCR PAN NOT DETECTED; B. PERTUSSIS- RESP PCR PANEL NOT DETECTED; C. PNEUMONIAE- RESP PCR PANEL NOT DETECTED; CORONAVIRUS 229E-RESP PCR NOT DETECTED; CORONAVIRUS HKU1-RESP PCR NOT DETECTED; CORONAVIRUS NL63-RESP PCR NOT DETECTED; CORONAVIRUS OC43-RESP PCR NOT DETECTED; HUMAN METAPNEUMOVIRUS NOT DETECTED; INFLUENZA A- RESP PCR PANEL NOT DETECTED; INFLUENZA B - RESP PCR PANEL NOT DETECTED; M. PNEUMONIAE- RESP PCR PANEL NOT DETECTED; PARAINFLUENZA VIRUS 1 NOT DETECTED; PARAINFLUENZA VIRUS 2 NOT DETECTED; PARAINFLUENZA VIRUS 3 NOT DETECTED; PARAINFLUENZA VIRUS 4 NOT DETECTED; RHINOVIRUS/ENTEROVIRUS NOT DETECTED; RSV- RESP PCR PANEL NOT DETECTED; SARS-CoV-2 -RESP PCR PANEL NOT DETECTED
[2021-01-12] MEDS: SODIUM CHLORIDE 0.9% 1,000 ML IV SCH ×2 (00:41→12:25)
[2021-01-12] MEDS: SODIUM CHLORIDE FLUSH 0.9% 10 ML SYRINGE IVP SCH ×4 (00:43→23:04)
[2021-01-12] MEDS: CHLORHEXIDINE GLUCONATE 15 ML UDC PO SCH ×3 (00:45→20:20)
[2021-01-12] MEDS: IPRATROPIUM/ALBUTEROL 3 ML NEB INH SCH ×5 (01:10→19:10)
[2021-01-12] MEDS: NYSTATIN CREAM 15 GM TUBE TOP SCH ×4 (01:21→20:21)
[2021-01-12] MEDS ORDERED: AZITHROMYCIN INJ 500 MG in SODIUM CHLORIDE 0.9% 250 ML IV SCH (02:00)
[2021-01-12] MEDS ORDERED: cefTRIAXone 1 GM in SODIUM CHLORIDE 0.9% MINIBAG 100 ML IV SCH (02:00)
[2021-01-12 02:33] LABS: ABG OXYGEN SATURATION 97 % (94-98); ABG PCO2 77 mmHg (34-45); ABG PO2 78 mmHg (80-100); ABG TCO2 49.4 MMOL/L (21.0-29.0); ALLEN TEST POSITIVE
[2021-01-12 02:34] LABS: ABG MODE OF VENTILATION SYNCHRONOUS/TIMES
[2021-01-12] MEDS: POLYMYXIN B/TRIMETH OPHTH DROPS EACHEYE SCH ×8 (02:56→23:04)
[2021-01-12 04:58] LABS: BASOPHILS % (AUTO) 0.3 %; EOSINOPHILS % (AUTO) 0.4 %; HCT - HEMATOCRIT 43.6 % (42.0-52.0); HGB - HEMOGLOBIN 12.2 g/dL (14.0-18.0); LYMPHOCYTES # (AUTO) 0.5 10^3/uL (1.5-3.5); LYMPHOCYTES % (AUTO) 6.2 %; MEAN CORPUSCULAR HEMOGLOBIN 27.2 pg (27.0-31.0); MEAN CORPUSCULAR VOLUME 97.3 fL (80.0-94.0); MEAN PLATELET VOLUME 9.9 fL (7.4-11.4); MONOCYTES # (AUTO) 0.1 10^3/uL (0.0-1.0); MONOCYTES % (AUTO) 1.3 %; NEUTROPHILS % (AUTO) 91.3 %; PLT - PLATELET COUNT 188 10^3/uL (130-450); RED BLOOD COUNT 4.48 10^6/uL (4.70-6.10); RED CELL DISTRIBUTION WIDTH 15.6 % (12.0-15.0); WHITE BLOOD COUNT 7.7 x10^3/uL (4.8-10.8)
[2021-01-12] MEDS ORDERED: methylPREDNISolone SUCCINATE 40 MG/ML VIAL IVP SCH (05:00)
[2021-01-12 05:12] LABS: CALCIUM 8.5 mg/dL (8.5-10.3); CREATININE 0.8 mg/dL (0.6-1.2); MAGNESIUM 2.2 mg/dL (1.7-2.8); PHOSPHORUS 2.2 mg/dL (2.5-4.6)
[2021-01-12] MEDS: NEUTRA-PHOS 250 MG TABLET PO SCH ×2 (06:36→08:59)
--- NOTE | 2021-01-12 07:33 | PROVIDER PROGRESS NOTE ---
Subjective - Prog Note Date Prog Note Date: 01/12/21 - Subjective Subjective: He reports feeling much better today. His son feels that the patient is back to his baseline. The patient denies any dyspnea or pain. He does complain of lower extremity edema which she states is chronic for him. He reports the edema has been an issue for him and worsened 3 to 4 months ago. It then began to improve about 2 months ago after he stopped drinking soda. He then states over the past month the edema has progressed and is now quite significant once again. He has had a lot of salt intake over this period time and has not monitored his diet. He is on Lasix which she does take on a regular basis. He states that he is post to be on 2 L of oxygen at baseline but has been increasing it to 4 L as he will occasionally feel short of breath. He reports being compliant with his CPAP. He does not have a recent sleep study. Current Medications - Current Medications Current Medications: Active Medications Acetaminophen (Acetaminophen 325 Mg Tablet) 650 mg PO Q4HR PRN PRN Reason: Pain 1 to 4 Albuterol (Albuterol Neb 2.5 Mg/3 Ml) 2.5 mg INH Q4HR PRN PRN Reason: Wheezing Albuterol/Ipratropium (Ipratropium/Albuterol 3 Ml Neb) 3 ml INH RTQID [facility] Stop: 01/12/21 23:44 Last Admin: 01/12/21 15:06 Dose: 3 ml Documented by: Aspirin (Aspirin Ec 81 Mg Tablet) 81 mg PO DAILY [facility] Last Admin: 01/12/21 09:04 Dose: 81 mg Documented by: Atorvastatin Calcium (Atorvastatin 40 Mg Tablet) 80 mg PO DAILY [facility] Last Admin: 01/12/21 09:00 Dose: 80 mg Documented by: Chlorhexidine Gluconate (Chlorhexidine Gluconate 15 Ml Udc) 15 ml PO BID [facility] Last Admin: 01/12/21 09:09 Dose: 15 ml Documented by: Enoxaparin Sodium (Enoxaparin 40 Mg/0.4 Ml Syringe) 40 mg SUBQ BID [facility] Furosemide (Furosemide 40 Mg/4 Ml Vial) 40 mg IVP DAILY [facility] Azithromycin 500 mg/ Sodium (Chloride) 250 mls @ 250 mls/hr IV QD@0000 [facility] Stop: 01/14/21 00:59 Last Infusion: 01/12/21 03:30 Dose: Infused Documented by: Ceftriaxone Sodium 2 gm/ (Sodium Chloride) 100 mls @ 200 mls/hr IV DAILY [facility] Stop: 01/16/21 10:29 Last Infusion: 01/12/21 11:27 Dose: Infused Documented by: Insulin Aspart (Insulin Aspart 300 Unit/3 Ml Pen) 3 - 11 unit SUBQ 0800,1200,1700,2100 [facility]; Protocol Last Admin: 01/12/21 11:58 Dose: 5 unit Documented by: Insulin Glargine (Insulin Glargine 300 Unit/3 Ml Pen) 70 unit SUBQ BID [facility] Last Admin: 01/12/21 09:13 Dose: 70 unit Documented by: Losartan Potassium (Losartan 50 Mg Tablet) 50 mg PO DAILY [facility] Last Admin: 01/12/21 09:01 Dose: 50 mg Documented by: Nystatin (Nystatin Cream 15 Gm Tube) 1 applic TOP BID [facility] Last Admin: 01/12/21 10:30 Dose: 1 applic Documented by: Ondansetron HCl (Ondansetron Odt 4 Mg Tablet) 4 mg TL Q6HR PRN PRN Reason: Nausea / Vomiting Ondansetron HCl (Ondansetron 4 Mg/2 Ml Vial) 4 mg IVP Q6HR PRN PRN Reason: Nausea / Vomiting Oxycodone HCl (Oxycodone 5 Mg Tablet) 5 mg PO Q4HR PRN PRN Reason: Pain 5 to 7 Polymyxin/Trimethoprim Sulfate (Polymyxin B/Trimeth Ophth Drops) 1 drops EACHEYE Q3HR [facility] Last Admin: 01/12/21 11:45 Dose: 1 drops Documented by: Saccharomyces Boulardii (Saccharomyces Boulardii 250 Mg Capsule) 250 mg PO BIDWM [facility] Last Admin: 01/12/21 08:58 Dose: 250 mg Documented by: Sodium Chloride (Sodium Chloride Flush 0.9% 10 Ml Syringe) 10 ml IVP 0100,0900,1700 [facility] Last Admin: 01/12/21 11:32 Dose: Not Given Documented by: Sodium Chloride (Sodium Chloride Flush 0.9% 10 Ml Syringe) 10 ml IVP PRN PRN PRN Reason: NEEDED PER PROVIDER ORDERS Tamsulosin HCl (Tamsulosin 0.4 Mg Capsule) 0.4 mg PO DAILY [facility] Last Admin: 01/12/21 09:04 Dose: 0.4 mg Documented by: Aspirin [Aspir 81] 81 mg PO HS 02/26/14 Atorvastatin Calcium [Lipitor] 80 mg PO HS 02/26/14 Insulin Glargine,Hum.rec.anlog [Lantus] 100 unit SQ HS 02/26/14 Losartan [Cozaar] 100 mg PO DAILY 02/26/14 Glipizide 10 mg PO BIDAC 12/31/20 Metformin HCl [Fortamet] 1,000 mg PO BID 12/31/20 Tamsulosin [Flomax] 0.4 mg PO BID 12/31/20 Amlodipine Besylate [Norvasc] 10 mg PO DAILY 01/12/21 Furosemide [Lasix] 80 mg PO DAILY 01/12/21 Insulin Aspart [NovoLOG] 10 units SQ TIDWM 01/12/21 Isosorbide Mononitrate [Isosorbide Mononitrate ER] 30 mg PO BID 01/12/21 Objective - Vital Signs/Intake & Output Reviewed Vital Signs: Yes Vital Signs: Vital Signs Temp Pulse Pulse Resp BP Pulse Ox 01/12/21 07:08 70 15 01/12/21 07:06 67 01/12/21 06:00 36.5 C 71 15 124/56 L 100 01/12/21 05:30 69 01/12/21 05:00 54 L 19 121/54 L 100 01/12/21 04:00 54 L 16 115/87 H 96 Intake & Output: Intake & Output 01/09/21 01/10/21 01/11/21 01/12/21 23:59 23:59 23:59 23:59 Intake Total 1140 Output Total 425 Balance 715 - Objective General Appearance: positive: No acute distress, Alert Eyes Bilateral: positive: Normal inspection, Conjunctivae nml ENT: positive: ENT inspection nml, Other (Nasal cannula in place.) Neck: positive: Nml inspection Respiratory: positive: No respiratory distress, Rales, Other (Diminished bilaterally). negative: Wheezes Cardiovascular: positive: Regular rate & rhythm, No murmur. negative: T achycardia Abdomen: positive: Non-tender, No distention. negative: Tenderness Skin: positive: Warm, Dry, Other (Mild erythema over the anterior aspect of both legs.) Extremities: positive: Pedal edema (+2 pitting edema in bilateral lower extremities up to the abdomen.) Neurologic/Psychiatric: negative: Disoriented to person, Disoriented to place - Lab Results Fish Bones: 01/12/21 04:31 01/12/21 04:31 Other Labs: Lab Results x24hrs 01/12/21 01/12/21 01/12/21 Range/Units 04:31 04:31 04:31 WBC 7.7 (4.8-10.8) x10^3/uL RBC 4.48 L (4.70-6.10) 10^6/uL Hgb 12.2 L (14.0-18.0) g/dL Hct 43.6 (42.0-52.0) % MCV 97.3 H (80.0-94.0) fL MCH 27.2 (27.0-31.0) pg MCHC 28.0 L (32.0-36.0) g/dL RDW 15.6 H (12.0-15.0) % Plt Count 188 (130-450) 10^3/uL MPV 9.9 (7.4-11.4) fL Neut # (Auto) 7.0 H (1.5-6.6) 10^3/uL Lymph # (Auto) 0.5 L (1.5-3.5) 10^3/uL [place] # (Auto) 0.1 (0.0-1.0) 10^3/uL Eos # (Auto) 0.0 (0.0-0.7) 10^3/uL Baso # (Auto) 0.0 (0.0-0.1) 10^3/uL Absolute Nucleated RBC 0.00 x10^3/uL Nucleated RBC % 0.0 /100WBC Bld Gas Analysis Time Sample Site ABG pH (7.35-7.45) ABG pCO2 (34-45) mmHg ABG pO2 (80-100) mmHg ABG HCO3 (22.0-26.0) mmol/L ABG Total CO2 (21.0-29.0) MMOL/L ABG O2 Saturation (94-98) % ABG Base Excess (-2.0-3.0) mmol/L Reynaldo Test VBG pH (7.31-7.41) VBG pCO2 (41-51) mmHg VBG pO2 (25-47) mmHg VBG HCO3 (23-28) mmol/L VBG Total CO2 (24-29) mmol/L VBG O2 Saturation (60-80) % VBG Base Excess (-2 - +2) mmol/L O2 Delivery Device Vent Mode FiO2 PEEP cmH2O Pressure Support Vent cmH2O EPAP cmH2O IPAP cmH2O Sodium 142 (135-145) mmol/L Potassium 5.0 (3.5-5.0) mmol/L Chloride 94 L (101-111) mmol/L Carbon Dioxide 40 H* (21-32) mmol/L Anion Gap 8.0 (6-13) BUN 21 H (6-20) mg/dL Creatinine 0.8 (0.6-1.2) mg/dL Estimated GFR (MDRD) 96 (>89) Glucose 139 H (70-100) mg/dL Calcium 8.5 (8.5-10.3) mg/dL Phosphorus 2.2 L (2.5-4.6) mg/dL Magnesium 2.2 (1.7-2.8) mg/dL Total Bilirubin (0.2-1.0) mg/dL AST (10-42) IU/L ALT (10-60) IU/L Alkaline Phosphatase (42-121) IU/L B-Natriuretic Peptide 124 H (5-100) pg/mL Total Protein (6.7-8.2) g/dL Albumin (3.2-5.5) g/dL Globulin (2.1-4.2) g/dL Albumin/Globulin Ratio (1.0-2.2) Lipase (22-51) U/L Urine Color Urine Clarity (CLEAR) Urine pH (5.0-7.5) PH Ur Specific [place] (1.002-1.030) Urine Protein (NEGATIVE) mg/dL Urine Glucose (UA) (NEGATIVE) mg/dL Urine Ketones (NEGATIVE) mg/dL Urine Occult Blood (NEGATIVE) Urine Nitrite (NEGATIVE) Urine Bilirubin (NEGATIVE) Urine Urobilinogen (NORMAL) E.U./dL Ur Leukocyte Esterase (NEGATIVE) Urine RBC (0-5) /HPF Urine WBC (0-3) /HPF Ur Squamous Epith Cells (<= Few) Urine Crystals /LPF Urine Bacteria (None Seen) /HPF Urine Casts /LPF Ur Microscopic Review Urine Culture Comments Nasal Adenovirus (PCR) Nasal B. parapertussis DNA (PCR) Nasal Coronavir 229E PCR Nasal Coronavir HKU1 PCR Nasal Coronavir NL63 PCR Nasal Coronavir OC43 PCR Nasal Enterovir/Rhinovir PCR Nasal Influenza B PCR Nasal Influenza A PCR Nasal Parainfluen 1 PCR Nasal Parainfluen 2 PCR Nasal Parainfluen 3 PCR Nasal Parainfluen 4 PCR Nasal RSV (PCR) Nasal Screen MRSA (PCR) (NEGATIVE) Nasal B.pertussis DNA PCR Nasal C.pneumoniae (PCR) Armando Human Metapneumo PCR Nasal M.pneumoniae (PCR) Nasal SARS-CoV-2 (PCR) 01/12/21 01/12/21 01/11/21 Range/Units 02:23 00:40 23:11 WBC (4.8-10.8) x10^3/uL RBC (4.70-6.10) 10^6/uL Hgb (14.0-18.0) g/dL Hct (42.0-52.0) % MCV (80.0-94.0) fL MCH (27.0-31.0) pg MCHC (32.0-36.0) g/dL RDW (12.0-15.0) % Plt Count (130-450) 10^3/uL MPV (7.4-11.4) fL Neut # (Auto) (1.5-6.6) 10^3/uL Lymph # (Auto) (1.5-3.5) 10^3/uL [place] # (Auto) (0.0-1.0) 10^3/uL Eos # (Auto) (0.0-0.7) 10^3/uL Baso # (Auto) (0.0-0.1) 10^3/uL Absolute Nucleated RBC x10^3/uL Nucleated RBC % /100WBC Bld Gas Analysis Time 0230 Sample Site RIGHT RADIAL ABG pH 7.40 (7.35-7.45) ABG pCO2 77 H* (34-45) mmHg ABG pO2 78 L (80-100) mmHg ABG HCO3 47.0 H (22.0-26.0) mmol/L ABG Total CO2 49.4 H* (21.0-29.0) MMOL/L ABG O2 Saturation 97 (94-98) % ABG Base Excess 18.0 H (-2.0-3.0) mmol/L Reynaldo Test POSITIVE VBG pH (7.31-7.41) VBG pCO2 (41-51) mmHg VBG pO2 (25-47) mmHg VBG HCO3 (23-28) mmol/L VBG Total CO2 (24-29) mmol/L VBG O2 Saturation (60-80) % VBG Base Excess (-2 - +2) mmol/L O2 Delivery Device BiPAP Vent Mode SYNCHRONOUS/TIMES FiO2 40.00 PEEP 5 cmH2O Pressure Support Vent 7 cmH2O EPAP 5 cmH2O IPAP 12 cmH2O Sodium (135-145) mmol/L Potassium (3.5-5.0) mmol/L Chloride (101-111) mmol/L Carbon Dioxide (21-32) mmol/L Anion Gap (6-13) BUN (6-20) mg/dL Creatinine (0.6-1.2) mg/dL Estimated GFR (MDRD) (>89) Glucose (70-100) mg/dL Calcium (8.5-10.3) mg/dL Phosphorus (2.5-4.6) mg/dL Magnesium (1.7-2.8) mg/dL Total Bilirubin (0.2-1.0) mg/dL AST (10-42) IU/L ALT (10-60) IU/L Alkaline Phosphatase (42-121) IU/L B-Natriuretic Peptide (5-100) pg/mL Total Protein (6.7-8.2) g/dL Albumin (3.2-5.5) g/dL Globulin (2.1-4.2) g/dL Albumin/Globulin Ratio (1.0-2.2) Lipase (22-51) U/L Urine Color Urine Clarity (CLEAR) Urine pH (5.0-7.5) PH Ur Specific [place] (1.002-1.030) Urine Protein (NEGATIVE) mg/dL Urine Glucose (UA) (NEGATIVE) mg/dL Urine Ketones (NEGATIVE) mg/dL Urine Occult Blood (NEGATIVE) Urine Nitrite (NEGATIVE) Urine Bilirubin (NEGATIVE) Urine Urobilinogen (NORMAL) E.U./dL Ur Leukocyte Esterase (NEGATIVE) Urine RBC (0-5) /HPF Urine WBC (0-3) /HPF Ur Squamous Epith Cells (<= Few) Urine Crystals /LPF Urine Bacteria (None Seen) /HPF Urine Casts /LPF Ur Microscopic Review Urine Culture Comments Nasal Adenovirus (PCR) NOT DETECTED Nasal B. parapertussis DNA (PCR) NOT DETECTED Nasal Coronavir 229E PCR NOT DETECTED Nasal Coronavir HKU1 PCR NOT DETECTED Nasal Coronavir NL63 PCR NOT DETECTED Nasal Coronavir OC43 PCR NOT DETECTED Nasal Enterovir/Rhinovir PCR NOT DETECTED Nasal Influenza B PCR NOT DETECTED Nasal Influenza A PCR NOT DETECTED Nasal Parainfluen 1 PCR NOT DETECTED Nasal Parainfluen 2 PCR NOT DETECTED Nasal Parainfluen 3 PCR NOT DETECTED Nasal Parainfluen 4 PCR NOT DETECTED Nasal RSV (PCR) NOT DETECTED Nasal Screen MRSA (PCR) NEGATIVE (NEGATIVE) Nasal B.pertussis DNA PCR NOT DETECTED Nasal C.pneumoniae (PCR) NOT DETECTED Armando Human Metapneumo PCR NOT DETECTED Nasal M.pneumoniae (PCR) NOT DETECTED Nasal SARS-CoV-2 (PCR) NOT DETECTED 01/11/21 01/11/21 01/11/21 Range/Units 22:35 21:35 21:35 WBC 7.2 (4.8-10.8) x10^3/uL RBC 4.95 (4.70-6.10) 10^6/uL Hgb 13.2 L (14.0-18.0) g/dL Hct 49.1 (42.0-52.0) % MCV 99.2 H (80.0-94.0) fL MCH 26.7 L (27.0-31.0) pg MCHC 26.9 L (32.0-36.0) g/dL RDW 15.9 H (12.0-15.0) % Plt Count 205 (130-450) 10^3/uL MPV 9.3 (7.4-11.4) fL Neut # (Auto) 5.4 (1.5-6.6) 10^3/uL Lymph # (Auto) 1.1 L (1.5-3.5) 10^3/uL [place] # (Auto) 0.4 (0.0-1.0) 10^3/uL Eos # (Auto) 0.1 (0.0-0.7) 10^3/uL Baso # (Auto) 0.0 (0.0-0.1) 10^3/uL Absolute Nucleated RBC 0.00 x10^3/uL Nucleated RBC % 0.0 /100WBC Bld Gas Analysis Time Sample Site ABG pH (7.35-7.45) ABG pCO2 (34-45) mmHg ABG pO2 (80-100) mmHg ABG HCO3 (22.0-26.0) mmol/L ABG Total CO2 (21.0-29.0) MMOL/L ABG O2 Saturation (94-98) % ABG Base Excess (-2.0-3.0) mmol/L Reynaldo Test VBG pH 7.258 L (7.31-7.41) VBG pCO2 103.3 H (41-51) mmHg VBG pO2 27.7 (25-47) mmHg VBG HCO3 45.1 H (23-28) mmol/L VBG Total CO2 48.3 H (24-29) mmol/L VBG O2 Saturation 55.9 L (60-80) % VBG Base Excess 13.1 H (-2 - +2) mmol/L O2 Delivery Device Vent Mode FiO2 PEEP cmH2O Pressure Support Vent cmH2O EPAP cmH2O IPAP cmH2O Sodium 147 H (135-145) mmol/L Potassium 4.5 (3.5-5.0) mmol/L Chloride 88 L (101-111) mmol/L Carbon Dioxide > 45 H* (21-32) mmol/L Anion Gap 14.0 H (6-13) BUN 24 H (6-20) mg/dL Creatinine 1.0 (0.6-1.2) mg/dL Estimated GFR (MDRD) 75 L (>89) Glucose 141 H (70-100) mg/dL Calcium 9.6 (8.5-10.3) mg/dL Phosphorus (2.5-4.6) mg/dL Magnesium (1.7-2.8) mg/dL Total Bilirubin 0.5 (0.2-1.0) mg/dL AST 16 (10-42) IU/L ALT 18 (10-60) IU/L Alkaline Phosphatase 91 (42-121) IU/L B-Natriuretic Peptide (5-100) pg/mL Total Protein 7.5 (6.7-8.2) g/dL Albumin 3.3 (3.2-5.5) g/dL Globulin 4.2 (2.1-4.2) g/dL Albumin/Globulin Ratio 0.8 L (1.0-2.2) Lipase 32 (22-51) U/L Urine Color Urine Clarity (CLEAR) Urine pH (5.0-7.5) PH Ur Specific [place] (1.002-1.030) Urine Protein (NEGATIVE) mg/dL Urine Glucose (UA) (NEGATIVE) mg/dL Urine Ketones (NEGATIVE) mg/dL Urine Occult Blood (NEGATIVE) Urine Nitrite (NEGATIVE) Urine Bilirubin (NEGATIVE) Urine Urobilinogen (NORMAL) E.U./dL Ur Leukocyte Esterase (NEGATIVE) Urine RBC (0-5) /HPF Urine WBC (0-3) /HPF Ur Squamous Epith Cells (<= Few) Urine Crystals /LPF Urine Bacteria (None Seen) /HPF Urine Casts /LPF Ur Microscopic Review Urine Culture Comments Nasal Adenovirus (PCR) Nasal B. parapertussis DNA (PCR) Nasal Coronavir 229E PCR Nasal Coronavir HKU1 PCR Nasal Coronavir NL63 PCR Nasal Coronavir OC43 PCR Nasal Enterovir/Rhinovir PCR Nasal Influenza B PCR Nasal Influenza A PCR Nasal Parainfluen 1 PCR Nasal Parainfluen 2 PCR Nasal Parainfluen 3 PCR Nasal Parainfluen 4 PCR Nasal RSV (PCR) Nasal Screen MRSA (PCR) (NEGATIVE) Nasal B.pertussis DNA PCR Nasal C.pneumoniae (PCR) Armando Human Metapneumo PCR Nasal M.pneumoniae (PCR) Nasal SARS-CoV-2 (PCR) 01/11/21 Range/Units 21:29 WBC (4.8-10.8) x10^3/uL RBC (4.70-6.10) 10^6/uL Hgb (14.0-18.0) g/dL Hct (42.0-52.0) % MCV (80.0-94.0) fL MCH (27.0-31.0) pg MCHC (32.0-36.0) g/dL RDW (12.0-15.0) % Plt Count (130-450) 10^3/uL MPV (7.4-11.4) fL Neut # (Auto) (1.5-6.6) 10^3/uL Lymph # (Auto) (1.5-3.5) 10^3/uL [place] # (Auto) (0.0-1.0) 10^3/uL Eos # (Auto) (0.0-0.7) 10^3/uL Baso # (Auto) (0.0-0.1) 10^3/uL Absolute Nucleated RBC x10^3/uL Nucleated RBC % /100WBC Bld Gas Analysis Time Sample Site ABG pH (7.35-7.45) ABG pCO2 (34-45) mmHg ABG pO2 (80-100) mmHg ABG HCO3 (22.0-26.0) mmol/L ABG Total CO2 (21.0-29.0) MMOL/L ABG O2 Saturation (94-98) % ABG Base Excess (-2.0-3.0) mmol/L Reynaldo Test VBG pH (7.31-7.41) VBG pCO2 (41-51) mmHg VBG pO2 (25-47) mmHg VBG HCO3 (23-28) mmol/L VBG Total CO2 (24-29) mmol/L VBG O2 Saturation (60-80) % VBG Base Excess (-2 - +2) mmol/L O2 Delivery Device Vent Mode FiO2 PEEP cmH2O Pressure Support Vent cmH2O EPAP cmH2O IPAP cmH2O Sodium (135-145) mmol/L Potassium (3.5-5.0) mmol/L Chloride (101-111) mmol/L Carbon Dioxide (21-32) mmol/L Anion Gap (6-13) BUN (6-20) mg/dL Creatinine (0.6-1.2) mg/dL Estimated GFR (MDRD) (>89) Glucose (70-100) mg/dL Calcium (8.5-10.3) mg/dL Phosphorus (2.5-4.6) mg/dL Magnesium (1.7-2.8) mg/dL Total Bilirubin (0.2-1.0) mg/dL AST (10-42) IU/L ALT (10-60) IU/L Alkaline Phosphatase (42-121) IU/L B-Natriuretic Peptide (5-100) pg/mL Total Protein (6.7-8.2) g/dL Albumin (3.2-5.5) g/dL Globulin (2.1-4.2) g/dL Albumin/Globulin Ratio (1.0-2.2) Lipase (22-51) U/L Urine Color YELLOW Urine Clarity CLEAR (CLEAR) Urine pH 5.5 (5.0-7.5) PH Ur Specific [place] >=1.030 H (1.002-1.030) Urine Protein 100 H (NEGATIVE) mg/dL Urine Glucose (UA) 100 H (NEGATIVE) mg/dL Urine Ketones NEGATIVE (NEGATIVE) mg/dL Urine Occult Blood NEGATIVE (NEGATIVE) Urine Nitrite NEGATIVE (NEGATIVE) Urine Bilirubin NEGATIVE (NEGATIVE) Urine Urobilinogen 0.2 (NORMAL) (NORMAL) E.U./dL Ur Leukocyte Esterase NEGATIVE (NEGATIVE) Urine RBC 0-5 (0-5) /HPF Urine WBC 0-3 (0-3) /HPF Ur Squamous Epith Cells RARE Squamous (<= Few) Urine Crystals 0-2 Calcium Oxalate /LPF Urine Bacteria Rare (None Seen) /HPF Urine Casts 6-10 Hyaline Casts /LPF Ur Microscopic Review INDICATED Urine Culture Comments NOT INDICATED Nasal Adenovirus (PCR) Nasal B. parapertussis DNA (PCR) Nasal Coronavir 229E PCR Nasal Coronavir HKU1 PCR Nasal Coronavir NL63 PCR Nasal Coronavir OC43 PCR Nasal Enterovir/Rhinovir PCR Nasal Influenza B PCR Nasal Influenza A PCR Nasal Parainfluen 1 PCR Nasal Parainfluen 2 PCR Nasal Parainfluen 3 PCR Nasal Parainfluen 4 PCR Nasal RSV (PCR) Nasal Screen MRSA (PCR) (NEGATIVE) Nasal B.pertussis DNA PCR Nasal C.pneumoniae (PCR) Armando Human Metapneumo PCR Nasal M.pneumoniae (PCR) Nasal SARS-CoV-2 (PCR) Assessment/Plan - Problem List (1) Acute on chronic respiratory failure with hypoxia and hypercapnia Impression: He is on 2 L of oxygen at baseline and he is also a chronic retainer but he was acutely hypercapnic yesterday which caused him to be encephalopathic. This is likely secondary to obesity hypoventilation syndrome and possibly component of p ulmonary vascular congestion given his chest x-ray was concerning for edema. He was initially treated with antibiotics for pneumonia but this is less likely given lack of fever, white count and so we will discontinue the ceftriaxone and azithromycin. He is hypercapnia has improved with BiPAP and he is back to his baseline mentation and is saturating well on his 2 L of oxygen. We will obtain echocardiogram to evaluate for heart failure. We will continue diuresis with Lasix IV. He will need to continue with CPAP therapy and will need an outpatient sleep study. He may ultimately need BiPAP therapy at home given he has had this episode of hypoventilation. He likely would benefit from a pu lmonology referral on outpatient basis as well. (2) Obesity hypoventilation syndrome Impression: This is the likely cause of his acute on chronic hypercapnic respiratory failure. He improved with BiPAP therapy. We will trial him on CPAP therapy tonight but if he has further episodes of hypoventilation he will need BiPAP therapy at home. We discussed the importance of weight loss. (3) CO2 narcosis Impression: This was the cause of his encephalopathy. This has resolved after treating his hypercapnia with BiPAP. We will continue with CPAP therapy at night. (4) Bilateral lower extremity edema Impression: This is worse over the past month. His BNP is not significantly elevated although his chest x-ray does reveal some pulmonary vascular congestion I suspect his BNP is falsely low due to his obesity. He is also on amlodipine which may be contributing to his lower extremity edema. At this time, we will place him on IV Lasix 40 mg daily. Discontinue amlodipine. Low-salt diet which we discussed extensively today. Leg elevation. Obtain echocardiogram and check Dopplers. Will use compression stockings on discharge. (5) YONATAN on CPAP Impression: I have asked him to bring his home CPAP so that we can use it this evening while he is here in the hospital to ensure it is functioning correctly. He has outpatient follow-up with her primary care provider and I have recommended that he needs more recent sleep study. (6) Controlled type 2 diabetes mellitus without complication, with long-term current use of insulin Impression: His A1c is 7%. We will continue his home insulin regimen and carb controlled diet. I have asked nutrition to see him to discuss a low-salt and carb c ontrolled diet. (7) HTN (hypertension) Impression: His blood pressure is currently well controlled. We will continue losartan but hold amlodipine given his lower extremity edema. Qualifiers: Hypertension type: essential hypertension Qualified Code(s): I10 - Essential (primary) hypertension (8) Morbid obesity Impression: This is unfortunate contributing to his obstructive sleep apnea as well as obesity hypoventilation syndrome. I have asked nutrition to see him to assist with diet. We discussed the importance of weight loss which is difficult given his activity is limited due to his lower extremity edema. (9) Chronic venous stasis dermatitis of both lower extremities Impression: This is due to his chronic lower extremity edema. We will continue to diurese him with Lasix IV at this time. He will continue on oral Lasix at home we discussed the importance of a low sodium diet. Continue with leg elevation and compression stockings.
--- NOTE | 2021-01-12 08:23 | CT Report ---
PROCEDURE: HEAD WO INDICATIONS: ams TECHNIQUE: Noncontrast 4.5 mm thick angled axial sections acquired from the foramen magnum to the vertex. For r adiation dose reduction, the following was used: automated exposure control, adjustment of mA and/or kV according to patient size. COMPARISON: None. FINDINGS: Image quality: Excellent. CSF spaces: Basal cisterns are patent. No extra-axial fluid collections. Ventricles are normal in size and shape. Brain: No midline shift. No intracranial masses or hemorrhage. Mild cerebral volume loss and perive ntricular white matter chronic small vessel ischemic changes. Skull and face: Calvarium and visualized facial bones are intact, without suspicious lesions. Sinuses: Visualized sinuses and mastoids are clear. IMPRESSION: No acute intracranial abnormalities. No significant discrepancy with the preliminary interpretation. Reviewed by: Kya Valera MD on 01/12/2021 8:22 AM PDT Approved by: Kya Valera MD on 01/12/2021 8:22 AM PDT Station ID: [id number]
--- NOTE | 2021-01-12 08:34 | XRAY Report ---
PROCEDURE: Chest 1 View X-Ray INDICATIONS: sob TECHNIQUE: One view of the chest was acquired. COMPARISON: 12/31/2020 FINDINGS: Surgical changes and devices: None. Lungs and pleura: Bilateral small pleural effusions. Overlying atelectasis versus consolidation. Patc hy interstitial and airspace opacities in both lungs. Mediastinum: Mediastinal contours appear normal. Heart size is enlarged similar to the prior study Bones and chest wall: No suspicious bony lesions. Overlying soft tissues appear unremarkable. IMPRESSION: Cardiomegaly with findings of cardiogenic pulmonary edema and small pleural effusions. Superimposed i nfectious process cannot be strictly excluded. Reviewed by: Moody Villalobos MD on 01/12/2021 8:32 AM PDT Approved by: Moody Villalobos MD on 01/12/2021 8:32 AM PDT Station ID: [id number]
[2021-01-12] MEDS: INSULIN ASPART 300 UNIT/3 ML PEN SUBQ SCH ×5 (08:54→20:28)
[2021-01-12] MEDS: SACCHAROMYCES BOULARDII 250 MG CAPSULE PO SCH ×2 (08:58→17:09)
[2021-01-12] MEDS ORDERED: amLODIPine 5 MG TABLET PO SCH (09:00)
[2021-01-12] MEDS ORDERED: INSULIN GLARGINE 300 UNIT/3 ML PEN SUBQ SCH (09:00)
[2021-01-12] MEDS ORDERED: ENOXAPARIN 40 MG/0.4 ML SYRINGE SUBQ SCH (09:00)
[2021-01-12] MEDS: ATORVASTATIN 40 MG TABLET PO SCH (09:00)
[2021-01-12] MEDS: LOSARTAN 50 MG TABLET PO SCH (09:01)
[2021-01-12] MEDS: ASPIRIN EC 81 MG TABLET PO SCH (09:04)
[2021-01-12] MEDS: TAMSULOSIN 0.4 MG CAPSULE PO SCH (09:04)
[2021-01-12] MEDS ORDERED: cefTRIAXone 2 GM in SODIUM CHLORIDE 0.9% MINIBAG 100 ML IV SCH (10:30)
[2021-01-12 11:37] LABS: ESTIMATED AVERAGE GLUCOSE 154 mg/dL (70-100)
[2021-01-12] MEDS ORDERED: FUROSEMIDE 40 MG/4 ML VIAL IVP STA (13:09)
--- NOTE | 2021-01-12 13:50 | PHARMACY PROGRESS NOTE ---
- Best Possible Medication History Admit Date and Time: 01/11/21 6282 Processed by: Pharmacy Medication History completed: Yes Patient Interview: Completed Secondary Source(s): Written medication list, Insurance records Med list documented per written medication list from patient. As the person ultimately responsible for medication therapy, providers are able to order a medication from an existing home medication list in [facility] via the "Reconcile Routine" prior to Confirmation of that medication by applications support analyst. Such practice is discouraged except when the physician, in their clinical judgment, deems that a medical need exists for a medication without regard to previous use.
[2021-01-12] MEDS ORDERED: INSULIN ASPART 300 UNIT/3 ML PEN SUBQ SCH (17:00)
[2021-01-12] MEDS: ENOXAPARIN 40 MG/0.4 ML SYRINGE SUBQ SCH (20:20)
[2021-01-12] MEDS: ISOSORBIDE MONONITRATE ER 30 MG TABLET PO SCH (20:21)
[2021-01-12] MEDS: INSULIN GLARGINE 300 UNIT/3 ML PEN SUBQ SCH (20:27)
[2021-01-13] MEDS: POLYMYXIN B/TRIMETH OPHTH DROPS EACHEYE SCH ×3 (02:32→08:27)
[2021-01-13 04:43] LABS: BASOPHILS % (AUTO) 0.3 %; EOSINOPHILS # (AUTO) 0.1 10^3/uL (0.0-0.7); HCT - HEMATOCRIT 39.6 % (42.0-52.0); HGB - HEMOGLOBIN 11.4 g/dL (14.0-18.0); LYMPHOCYTES # (AUTO) 1.1 10^3/uL (1.5-3.5); LYMPHOCYTES % (AUTO) 12.6 %; MEAN CORPUSCULAR HEMOGLOBIN 27.1 pg (27.0-31.0); MEAN CORPUSCULAR HGB CONC 28.8 g/dL (32.0-36.0); MEAN CORPUSCULAR VOLUME 94.3 fL (80.0-94.0); MEAN PLATELET VOLUME 9.8 fL (7.4-11.4); MONOCYTES # (AUTO) 0.6 10^3/uL (0.0-1.0); NEUTROPHILS # (AUTO) 6.9 10^3/uL (1.5-6.6); NEUTROPHILS % (AUTO) 78.6 %; PLT - PLATELET COUNT 188 10^3/uL (130-450); RED CELL DISTRIBUTION WIDTH 15.9 % (12.0-15.0); WHITE BLOOD COUNT 8.8 x10^3/uL (4.8-10.8)
[2021-01-13 04:46] LABS: CALCIUM 8.5 mg/dL (8.5-10.3); CREATININE 1.1 mg/dL (0.6-1.2); POTASSIUM 3.7 mmol/L (3.5-5.0)
[2021-01-13 06:17] LABS: MAGNESIUM 2.2 mg/dL (1.7-2.8)
[2021-01-13] MEDS: INSULIN ASPART 300 UNIT/3 ML PEN SUBQ SCH ×7 (08:00→21:03)
[2021-01-13] MEDS: ASPIRIN EC 81 MG TABLET PO SCH (08:25)
[2021-01-13] MEDS: SACCHAROMYCES BOULARDII 250 MG CAPSULE PO SCH ×2 (08:25→17:16)
[2021-01-13] MEDS: ATORVASTATIN 40 MG TABLET PO SCH (08:26)
[2021-01-13] MEDS: ENOXAPARIN 40 MG/0.4 ML SYRINGE SUBQ SCH ×2 (08:26→20:58)
[2021-01-13] MEDS: LOSARTAN 50 MG TABLET PO SCH (08:26)
[2021-01-13] MEDS: TAMSULOSIN 0.4 MG CAPSULE PO SCH (08:26)
[2021-01-13] MEDS: FUROSEMIDE 40 MG TABLET PO SCH (08:26)
[2021-01-13] MEDS: CHLORHEXIDINE GLUCONATE 15 ML UDC PO SCH ×2 (08:27→21:11)
[2021-01-13] MEDS: NYSTATIN CREAM 15 GM TUBE TOP SCH ×2 (08:27→21:09)
[2021-01-13] MEDS: ISOSORBIDE MONONITRATE ER 30 MG TABLET PO SCH ×2 (08:27→20:58)
[2021-01-13] MEDS: SODIUM CHLORIDE FLUSH 0.9% 10 ML SYRINGE IVP SCH ×2 (08:28→17:17)
[2021-01-13] MEDS ORDERED: FUROSEMIDE 40 MG/4 ML VIAL IVP SCH (09:00)
--- NOTE | 2021-01-13 09:12 | Ultrasound Report ---
PROCEDURE: Duplex Ext Veins Bilateral INDICATIONS: Bilateral lower extremity edema with pain TECHNIQUE: Real-time imaging, as well as color and pulse Doppler interrogation, were performed of the deep veins of both legs from the inguinal ligament to the popliteal fossa. COMPARISON: None FINDINGS: The deep veins are normally compressible, and free of intraluminal thrombus. Color and pu lse Doppler demonstrate normal phasic intravascular flow. There is normal augmentation response to d istal compression maneuver. IMPRESSION: No sonographic evidence of DVT. Reviewed by: oMody Villalobos MD on 01/13/2021 9:11 AM PDT Approved by: Moody Villalobos MD on 01/13/2021 9:11 AM PDT Station ID: [id number]
--- NOTE | 2021-01-13 12:42 | PROVIDER PROGRESS NOTE ---
Subjective - Prog Note Date Prog Note Date: 01/13/21 - Subjective Subjective: He feels improved today. He denies any dyspnea, chest pain, cough. He did not feel comfortable with his CPAP last night. Per respiratory and the weight loss physician, the patient was desaturating into the 60s with apneic episodes on his home CPAP. He was changed to our BiPAP and did well overnight. Current Medications - Current Medications Current Medications: Active Medications Acetaminophen (Acetaminophen 325 Mg Tablet) 650 mg PO Q4HR PRN PRN Reason: Pain 1 to 4 Albuterol (Albuterol Neb 2.5 Mg/3 Ml) 2.5 mg INH Q4HR PRN PRN Reason: Wheezing Last Admin: 01/13/21 07:44 Dose: 2.5 mg Documented by: Aspirin (Aspirin Ec 81 Mg Tablet) 81 mg PO DAILY [facility] Last Admin: 01/13/21 08:25 Dose: 81 mg Documented by: Atorvastatin Calcium (Atorvastatin 40 Mg Tablet) 80 mg PO DAILY [facility] Last Admin: 01/13/21 08:26 Dose: 80 mg Documented by: Chlorhexidine Gluconate (Chlorhexidine Gluconate 15 Ml Udc) 15 ml PO BID [facility] Last Admin: 01/13/21 08:27 Dose: 15 ml Documented by: Enoxaparin Sodium (Enoxaparin 40 Mg/0.4 Ml Syringe) 40 mg SUBQ BID [facility] Last Admin: 01/13/21 08:26 Dose: 40 mg Documented by: Furosemide (Furosemide 40 Mg Tablet) 40 mg PO DAILY [facility] Last Admin: 01/13/21 08:26 Dose: 40 mg Documented by: Insulin Aspart (Insulin Aspart 300 Unit/3 Ml Pen) 3 - 11 unit SUBQ 0800,1200,1700,2100 [facility]; Protocol Last Admin: 01/13/21 12:12 Dose: Not Given Documented by: Insulin Aspart (Insulin Aspart 300 Unit/3 Ml Pen) 10 unit SUBQ TIDWM [facility] Last Admin: 01/13/21 12:12 Dose: 10 unit Documented by: Insulin Glargine (Insulin Glargine 300 Unit/3 Ml Pen) 100 unit SUBQ QPM [facility] Last Admin: 01/12/21 20:27 Dose: 100 unit Documented by: Isosorbide Mononitrate (Isosorbide Mononitrate Er 30 Mg Tablet) 30 mg PO BID [facility] Last Admin: 01/13/21 08:27 Dose: 30 mg Documented by: Losartan Potassium (Losartan 50 Mg Tablet) 50 mg PO DAILY [facility] Last Admin: 01/13/21 08:26 Dose: 50 mg Documented by: Nystatin (Nystatin Cream 15 Gm Tube) 1 applic TOP BID [facility] Last Admin: 01/13/21 08:27 Dose: 1 applic Documented by: Ondansetron HCl (Ondansetron Odt 4 Mg Tablet) 4 mg TL Q6HR PRN PRN Reason: Nausea / Vomiting Ondansetron HCl (Ondansetron 4 Mg/2 Ml Vial) 4 mg IVP Q6HR PRN PRN Reason: Nausea / Vomiting Oxycodone HCl (Oxycodone 5 Mg Tablet) 5 mg PO Q4HR PRN PRN Reason: Pain 5 to 7 Saccharomyces Boulardii (Saccharomyces Boulardii 250 Mg Capsule) 250 mg PO BIDWM [facility] Last Admin: 01/13/21 08:25 Dose: 250 mg Documented by: Sodium Chloride (Sodium Chloride Flush 0.9% 10 Ml Syringe) 10 ml IVP 0100,0900,1700 [facility] Last Admin: 01/13/21 08:28 Dose: 10 ml Documented by: Sodium Chloride (Sodium Chloride Flush 0.9% 10 Ml Syringe) 10 ml IVP PRN PRN PRN Reason: NEEDED PER PROVIDER ORDERS Tamsulosin HCl (Tamsulosin 0.4 Mg Capsule) 0.4 mg PO DAILY [facility] Last Admin: 01/13/21 08:26 Dose: 0.4 mg Documented by: Aspirin [Aspir 81] 81 mg PO 02/26/14 Atorvastatin Calcium [Lipitor] 80 mg PO 02/26/14 Insulin Glargine,Hum.rec.anlog [Lantus] 100 unit SQ 02/26/14 Losartan [Cozaar] 100 mg PO DAILY 02/26/14 Glipizide 10 mg PO BIDAC 12/31/20 Metformin HCl [Fortamet] 1,000 mg PO BID 12/31/20 Tamsulosin [Flomax] 0.4 mg PO BID 12/31/20 Amlodipine Besylate [Norvasc] 10 mg PO DAILY 01/12/21 Furosemide [Lasix] 80 mg PO DAILY 01/12/21 Insulin Aspart [NovoLOG] 10 units SQ TIDWM 01/12/21 Isosorbide Mononitrate [Isosorbide Mononitrate ER] 30 mg PO BID 01/12/21 Objective - Vital Signs/Intake & Output Reviewed Vital Signs: Yes Vital Signs: Vital Signs x48h Pulse Pulse Resp BP Pulse Ox 01/13/21 08:00 67 22 164/82 H 96 01/13/21 07:44 65 20 01/13/21 07:42 66 01/13/21 05:35 64 Intake & Output: Intake & Output 01/10/21 01/11/21 01/12/21 01/13/21 23:59 23:59 23:59 23:59 Intake Total 3783.333 920 Output Total 2831 3365 Balance 954.287 -2476 - Objective General Appearance: positive: No acute distress, Alert Eyes Bilateral: positive: Normal inspection, Conjunctivae nml ENT: positive: Other (Nasal cannula in place.) Neck: positive: Nml inspection Respiratory: positive: No respiratory distress, Other (Diminished bilaterally.) Cardiovascular: positive: Regular rate & rhythm, Systolic murmur. negative: Tachycardia Abdomen: positive: Non-tender, No distention. negative: Tenderness, Rebound Skin: positive: Warm, Dry, Other (Chronic mild erythema and stasis dermatitis over bilateral lower extremities.) Extremities: positive: Pedal edema (+2 to +3 pitting edema in bilateral lower extremities.) Neurologic/Psychiatric: negative: Disoriented to person, Disoriented to place - Lab Results Fish Bones: 01/14/21 04:03 01/14/21 04:03 Other Labs: Lab Results x24hrs 01/13/21 01/13/21 01/13/21 Range/Units 04:21 04:21 04:21 WBC 8.8 (4.8-10.8) x10^3/uL RBC 4.20 L (4.70-6.10) 10^6/uL Hgb 11.4 L (14.0-18.0) g/dL Hct 39.6 L (42.0-52.0) % MCV 94.3 H (80.0-94.0) fL MCH 27.1 (27.0-31.0) pg MCHC 28.8 L (32.0-36.0) g/dL RDW 15.9 H (12.0-15.0) % Plt Count 188 (130-450) 10^3/uL MPV 9.8 (7.4-11.4) fL Neut # (Auto) 6.9 H (1.5-6.6) 10^3/uL Lymph # (Auto) 1.1 L (1.5-3.5) 10^3/uL Crockett # (Auto) 0.6 (0.0-1.0) 10^3/uL Eos # (Auto) 0.1 (0.0-0.7) 10^3/uL Baso # (Auto) 0.0 (0.0-0.1) 10^3/uL Absolute Nucleated RBC 0.00 x10^3/uL Nucleated RBC % 0.0 /100WBC Sodium 140 (135-145) mmol/L Potassium 3.7 (3.5-5.0) mmol/L Chloride 92 L (101-111) mmol/L Carbon Dioxide 40 H* (21-32) mmol/L Anion Gap 8.0 (6-13) BUN 25 H (6-20) mg/dL Creatinine 1.1 (0.6-1.2) mg/dL Estimated GFR (MDRD) 67 L (>89) Glucose 89 (70-100) mg/dL Calcium 8.5 (8.5-10.3) mg/dL Phosphorus 4.0 (2.5-4.6) mg/dL Magnesium 2.2 (1.7-2.8) mg/dL ABX Reporting Has patient been on IV antibiotics over the past 48 hours?: No Assessment/Plan - Problem List (1) Acute on chronic respiratory failure with hypoxia and hypercapnia Impression: This has resolved. He is back to his baseline oxygen requirements of 2 L of oxygen via nasal cannula and although his due to remains elevated, this is back to baseline. This was likely secondary to his obesity hypoventilation syndrome and inadequate settings on his CPAP. He was trialed on his home CPAP yesterday evening and had apneic episodes and would desaturate into the 60s. This resolved with BiPAP. It appears he will need a new sleep study to see if he needs more appropriate settings for his CPAP or ultimately will likely require BiPAP/trilogy given this episode of hypercapnia. As mentioned below, we work with insurance respiratory therapy to discuss the best way to proceed with this. The patient is not a safe discharge home at this time with his current CPAP machine due to the recurrent hypoxia and apneic episodes as he would be a high risk for readmission. (2) Obesity hypoventilation syndrome Impression: This is the cause of his acute on chronic hypercapnic respiratory failure and I suspect it was exacerbated by his an appropriate CPAP settings. He will need his CPAP settings adjusted and more likely will require BiPAP/trilogy at home as he is at high risk for apneic episodes and to have a reoccurrence of his hypercapnia. We will continue with BiPAP at night while he is hospitalized. We are working with respiratory therapy and his insurance to discuss potential options for BiPAP/trilogy at home. (3) CO2 narcosis Impression: This has since resolved. CO2 remains elevated but this is back to his baseline as he is a chronic retainer. This was secondary to his obesity hypoventilation syndrome. (4) Bilateral lower extremity edema Impression: We did have him on IV Lasix yesterday but his creatinine increased slightly as well as his BUN. His BNP is slightly elevated but may be falsely low due to his obesity. His x-ray was concerning for pulmonary vascular congestion and echocardiogram is pending today to evaluate for heart failure. This may have also been due to his amlodipine. Dopplers were negative for DVT. We will place him back on oral Lasix today. We will follow up the echocardiogram continue to hold his amlodipine. Continue the low-salt diet and leg elevation. Compression stockings as tolerated. (5) YONATAN on CPAP Impression: We trialed him on his home CPAP yesterday evening but this was an adequate as he had multiple apneic episodes and was desaturating into the 60s. This resolved as he was placed on her BiPAP unit. At this point in time, he is not a safe discharge home with his current CPAP. We are working with insurance respiratory therapy to assist with BiPAP/trilogy at home. [facility] for [facility]monology evaluation if this w ould assist with the patient obtaining BiPAP/trilogy at home. He did not have any beds available at this time but they have put him on the list and will contact us if a bed becomes available. (6) Controlled type 2 diabetes mellitus without complication, with long-term current use of insulin Impression: Blood glucose is well controlled on his current insulin regimen. His A1c is 7%. We have continued his home insulin regimen and carb controlled diet. (7) HTN (hypertension) Impression: His blood pressures been relatively well controlled although it is slightly elevated this morning. We will increase his losartan 100 mg. Continue to hold amlodipine given his lower extremity edema. Qualifiers: Hypertension type: essential hypertension Qualified Code(s): I10 - Essential (primary) hypertension (8) Morbid obesity Impression: We discussed the importance of weight loss once again as this is contributing to his sleep apnea. He was seen by nutrition yesterday. (9) Chronic venous stasis dermatitis of both lower extremities Impression: Chronic and stable. Dopplers were negative for DVT. We will continue with leg elevation and compression stockings as tolerated. He is back on oral Lasix today to assist with the edema.
--- NOTE | 2021-01-13 18:08 | DISCHARGE SUMMARY ---
Discharge Summary Admit Date: 01/11/21 Discharge Date: 01/17/21 Discharging Provider: Cecilio Jonas Primary Care Provider: Jose Courtney Code Status: Attempt Resuscitation Condition at Discharge: Stable Discharge Disposition: 02 Transfer Acute Care Hosp Discharge Facility [facility]: [facility] - DIAGNOSES Admission Diagnoses: Metabolic encephalopathy Acute respiratory failure with hypoxia and hypercapnia Abnormal chest x-ray YONATAN on CPAP Obesity hypoventilation syndrome Type 2 diabetes mellitus with long-term use of insulin Conjunctivitis Home help needed Super obesity Hypertension Discharge Diagnoses with Status of Each Condition: Acute on chronic respiratory failure with hypoxia and hypercapnia - improved. Obesity hypoventilation syndrome - ongoing. Second-degree AV block - resolved. Bilateral lower extremity edema - improved. YONATAN on CPAP - ongoing. Type 2 diabetes mellitus - stable. Hypertension - stable. Mild aortic stenosis - stable. Morbid obesity - stable. Chronic venous stasis dermatitis of both lower extremities - stable. CO2 narcosis - resolved. - HPI History of Present Illness: H&P per Dr. French on 01/11/21: He is a 65-year-old morbidly obese white male who is supposed to be on CPAP machine for obstructive sleep apnea. He tells me that he does not smoke, never did. He was just seen in the emergency room December 31 for shortness of breath and low energy. At that point in time he was desatting to the mid 70s with exertion and needed to increase his oxygen. With that visit he had a cardiac murmur, was morbidly obese. His pulse ox on 2 L was consistently in the upper 90s which is his baseline. He was speaking in full sentences without respiratory distress. Chest x-ray had no acute changes. They recommended that he follow-up with a new PCP, possibly benefit from getting an outpatient echo, and he received a dose of Decadron for possible COPD exacerbation. And he was sent home. Today, his son called him around 10 in the morning just to check up on him and make sure he took his medications. Patient has been recently struggling to remember to take his insulin and to take increasing doses. The son describes a "downward spiral" for the last few weeks. Dad just does not seem to be keeping it together. The patient tells me that he does not know why he has been going downhill. He feels like he has been going downhill for years now. First it was the BiPAP machine, then he was needing oxygen, and lately he is so short of breath with minimal activity. His oxygen keeps on reading low. He has not had any change in his medicines. He denies fever, chills, cough. Denies URI symptoms. Denies viral syndrome. It is getting harder and harder for him to do his activities of daily living due to the shortness of breath and his obesity. There is no way he can bend over to clean his legs or his feet. He does not use a cane or a walker. But he struggles to do simple things like make dinner. The son went to go check on the patient in person this evening and found him sitting down, staring at the wall, groggy, could not hold up a couple water to his mouth to drink. His speech was slow, slurred. Son could see that he had already spilled a glass of liquid on the floor. Initially his son thought that he was hypoglycemic and gave him 70 units of insulin and then called 911. He then gave his dad an apple. But fingerstick was 131. Patient tells me that he had tried to drink a glass of milk. Could not bring it up to his lips and dropped it on the floor. He was so short of breath that if his lift chair had not been right there, he would have landed on the floor not been able to get up. EMS found him to be hypoxic, sitting up. He was brought in to the emergency room where his heart rate was 68. Respirations were 24. He is 96% on room air. Blood pressure 159/70. Heart rate 68. He is 5 foot 9 inches tall and weighs 142.[address] Joya found her to be alert and oriented without any acute distress. Moist membranes. Bilateral distant breath sounds. Diminished airflow with end expiratory wheezing. He has 1+ bilateral pitting edema. Mild disorientation to date and time. Slow to respond. His white cell count was normal at 7.2. Sodium slightly elevated at 147. Carbon dioxide greater than 45. Anion gap 14. BUN 24. Glucose 141. Venous blood gas was done with 7.258, PCO2 103, PO2 27. Bicarb 45. His urine had a specific gravity of greater than 1.030. He had proteinuria, glucosuria, calcium oxalate crystals, rare bacteria, hyaline casts. No cultures indicated. Preliminary chest x-ray shows bilateral patchy infiltrates suspicious for pneumonitis and small pleural effusion. This is worse than the previous chest x-ray from December 31. His CT of head is no acute intracranial abnormality. [facility]. We did call the [facility] and they do not have beds. As such the patient will be admitted here. - CONSULTS | PROCEDURES Consultations: PT Procedures: Echocardiogram on January 13 showed mild concentric LVH with normal function, EF 60%. The left atrium is moderately dilated. Mild aortic stenosis, mean gradien t 20 mmHg, valve area 1.5 cm. Mild pulmonary pretension, PAPS 38 mmHg. - HOSPITAL COURSE Hospital Course: He was admitted to the ICU for acute on chronic hypoxic and hypercapnic respiratory failure. He was treated with BiPAP and repeat gas showed a pH 7.4 w ith a PCO2 of 70. His initial chest x-ray was concerning for possible edema versus atelectasis and he was started on azithromycin and ceftriaxone IV initially for possible community-acquired pneumonia but this was discontinued after 24 hours given the lack of fever, leukocytosis, cough and a low suspicion for pneumonia. He was given Lasix 40 mg IV given the pulmonary vascular congestion on imaging and although his BNP was only in the 120s, this may have been falsely decreased due to his obesity. An echocardiogram was obtained which showed no evidence of heart failure as his ejection fraction was preserved and he had no diastolic dysfunction. There was evidence of mild aortic stenosis. H is creatinine and BUN increased slightly compared to admission and so he was transitioned to oral Lasix. Dopplers of the lower extremities were obtained given his significant edema which were negative for DVT. It was felt that his amlodipine may have been a contributing factor and so this has been held during this hospitalization. Patient was counseled on the importance of a low-sodium diet as well as leg elevation. The patient was trialed on his home CPAP at night but he had apneic episodes and would desaturate down into the 60s. He was placed back on our BiPAP with resolution of the hypoxia and apneic episodes. It was felt the patient would not be a safe discharge home with his current CPAP as he would be high risk for readmission. We work closely respiratory therapy and his insurance to try and obtain trilogy at home. Unfortunately this would be quite costly without pulmonology evaluation. I contacted the ID to discuss transfer for pulmonology evaluation as the patient will likely need BiPAP/trilogy at home given his obesity hypoventilation syndrome. Patient was accepted in transfer although there were no beds available over the weekend. The patient was diuresed with IV Lasix up until Sunday as repeat x-ray showed no evidence of pulmonary vascular congestion. He was transitioned back to oral Lasix. We did trial him once again on his home CPAP but he did not tolerate this well with multiple episodes of apnea. We also trialed him on our own CPAP machine, V30, but he also had episodes of apnea and desaturations. The day prior to discharge, he had a brief episode of second-degree heart block type I previously this lasted only a few minutes and he has been in a sinus rhythm with a first-degree AV block since then. His TSH was within normal limits and he is not on any AV samy blocking agents. Of note, the patient was evaluated by physical therapy and the tentative plan was to [facility] to a jail facility. - ALLERGIES Allergies/Adverse Reactions: Allergies Allergy/AdvReac Type Severity Reaction Status Date / Time No Known Drug Allergies Allergy Verified 01/11/21 21:17 - MEDICATIONS Home Medications: Ambulatory Orders Medication Instructions Recorded Confirmed Aspirin [Aspir 81] 81 mg PO HS 02/26/14 01/12/21 Atorvastatin Calcium [Lipitor] 80 mg PO HS 02/26/14 01/12/21 Insulin Glargine,Hum.rec.anlog 100 unit SQ HS 02/26/14 01/12/21 [Lantus] Losartan [Cozaar] 100 mg PO DAILY 02/26/14 01/12/21 Glipizide 10 mg PO BIDAC 12/31/20 01/12/21 Metformin HCl [Fortamet] 1,000 mg PO BID 12/31/20 01/12/21 Tamsulosin [Flomax] 0.4 mg PO BID 12/31/20 01/12/21 Amlodipine Besylate [Norvasc] 10 mg PO DAILY 01/12/21 01/12/21 Furosemide [Lasix] 80 mg PO DAILY 01/12/21 01/12/21 Insulin Aspart [NovoLOG] 10 units SQ TIDWM 01/12/21 01/12/21 Isosorbide Mononitrate [Isosorbide 30 mg PO BID 01/12/21 01/12/21 Mononitrate ER] - PHYSICAL EXAM AT DISCHARGE General Appearance: positive: No acute distress, Alert Eyes Bilateral: positive: Normal inspection, Conjunctivae nml ENT: positive: Other (Nasal cannula in place.) Neck: positive: Nml inspection Respiratory: positive: No respiratory distress, Other (Diminished bilaterally.). negative: Wheezes, Rales Cardiovascular: positive: Regular rate & rhythm, Systolic murmur. negative: Tachycardia, Bradycardia Abdomen: positive: Non-tender, No distention. negative: Tenderness, Guarding, Rebound Skin: positive: Warm, Dry, Other (Chronic bilateral erythema over the anterior aspect of both lower extremities.) Extremities: positive: Pedal edema (+2 to +3 pitting edema in the bilateral lower extremities although this is improved compared to admission.) Neurologic/Psychiatric: negative: Disoriented to person, Disoriented to place Physical Exam Other/Comments: Vital Signs - 24 hr 01/13/21 01/13/21 01/13/21 13:00 16:00 20:00 Temperature 36.3 C L 36.4 C L Heart Rate Heart Rate [ 68 57 L 70 Monitoring electrodes] Respiratory 22 21 23 Rate Blood Pressure 113/55 L 116/51 L 126/51 L [Left Brachial artery] O2 Saturation 92 94 93 01/13/21 01/14/21 01/14/21 22:30 00:00 02:20 Temperature 36.9 C Heart Rate 70 67 Heart Rate [ 91 Monitoring electrodes] Respiratory 22 Rate Blood Pressure 175/64 H [Left Brachial artery] O2 Saturation 91 L 01/14/21 05:00 Temperature Heart Rate Heart Rate [ 56 L Monitoring electrodes] Respiratory 24 Rate Blood Pressure 134/57 H [Left Brachial artery] O2 Saturation 94 Oxygen O2 Source Nasal cannula Vital Signs - 24 hr 01/16/21 01/16/21 01/16/21 17:00 19:56 23:19 Temperature 36.4 C L 36.8 C 36.9 C Heart Rate Heart Rate [ 73 56 L 70 Monitoring electrodes] Respiratory 20 21 23 Rate Blood Pressure 125/51 L 121/53 L 119/53 L [Left Brachial artery] O2 Saturation 96 96 01/17/21 01/17/21 01/17/21 03:48 08:15 09:38 Temperature 36.4 C L 37.2 C Heart Rate Heart Rate [ 67 80 Monitoring electrodes] Respiratory 17 22 Rate Blood Pressure 121/55 L 145/58 H [Left Brachial artery] O2 Saturation 94 96 93 01/17/21 01/17/21 01/17/21 11:18 11:42 14:41 Temperature 36.9 C Heart Rate 82 Heart Rate [ 74 67 Monitoring electrodes] Respiratory 16 23 Rate Blood Pressure 120/50 L 120/49 L [Left Brachial artery] O2 Saturation 98 98 Oxygen O2 Source Oxymizer - LABS Result Diagrams: 01/17/21 04:42 01/17/21 04:42 - DIAGNOSTIC IMAGING Diagnostic Imaging Results: Final report reviewed Diagnostic Imaging Results Comments: Chest x-ray on January 11 showed cardiomegaly with findings of cardiogenic pulmonary edema and small pleural effusions. Superimposed infectious process cannot be strictly excluded. Venous duplex on January 12 showed no sonographic evidence of DVT. - TIME SPENT Time Spent in Discharge (Minutes): 40
[2021-01-13] MEDS: INSULIN GLARGINE 300 UNIT/3 ML PEN SUBQ SCH (20:57)
[2021-01-14 04:56] LABS: BASOPHILS % (AUTO) 0.5 %; EOSINOPHILS # (AUTO) 0.2 10^3/uL (0.0-0.7); EOSINOPHILS % (AUTO) 2.5 %; HCT - HEMATOCRIT 46.8 % (42.0-52.0); HGB - HEMOGLOBIN 13.2 g/dL (14.0-18.0); LYMPHOCYTES # (AUTO) 2.2 10^3/uL (1.5-3.5); LYMPHOCYTES % (AUTO) 28.4 %; MEAN CORPUSCULAR HEMOGLOBIN 26.8 pg (27.0-31.0); MEAN CORPUSCULAR HGB CONC 28.2 g/dL (32.0-36.0); MEAN CORPUSCULAR VOLUME 94.9 fL (80.0-94.0); MEAN PLATELET VOLUME 9.8 fL (7.4-11.4); MONOCYTES # (AUTO) 0.5 10^3/uL (0.0-1.0); MONOCYTES % (AUTO) 6.2 %; NEUTROPHILS # (AUTO) 4.7 10^3/uL (1.5-6.6); NEUTROPHILS % (AUTO) 61.9 %; PLT - PLATELET COUNT 193 10^3/uL (130-450); RED BLOOD COUNT 4.93 10^6/uL (4.70-6.10); RED CELL DISTRIBUTION WIDTH 15.9 % (12.0-15.0); WHITE BLOOD COUNT 7.6 x10^3/uL (4.8-10.8)
[2021-01-14 04:59] LABS: SLIDE REVIEW? Indicated
[2021-01-14 05:04] LABS: CALCIUM 9.1 mg/dL (8.5-10.3); POTASSIUM 4.8 mmol/L (3.5-5.0)
[2021-01-14 05:24] LABS: PLATELET ESTIMATE, MANUAL NORMAL (130-450,000) (NORMAL); PLATELET MORPHOLOGY NORMAL APPEARANCE (NORMAL); RBC MORPHOLOGY (MULTIPLE) 1+ HYPOCHROMASIA (NORMAL); WBC MORPHOLOGY (MULTIPLE) NORMAL APPEARANCE (NORMAL)
[2021-01-14] MEDS: SODIUM CHLORIDE FLUSH 0.9% 10 ML SYRINGE IVP SCH ×3 (08:07→17:09)
[2021-01-14] MEDS: INSULIN ASPART 300 UNIT/3 ML PEN SUBQ SCH ×7 (08:08→21:26)
[2021-01-14] MEDS: ASPIRIN EC 81 MG TABLET PO SCH (08:12)
[2021-01-14] MEDS: SACCHAROMYCES BOULARDII 250 MG CAPSULE PO SCH ×2 (08:12→17:15)
[2021-01-14] MEDS: FUROSEMIDE 40 MG TABLET PO SCH (10:22)
[2021-01-14] MEDS: ATORVASTATIN 40 MG TABLET PO SCH (10:22)
[2021-01-14] MEDS: CHLORHEXIDINE GLUCONATE 15 ML UDC PO SCH ×2 (10:23→22:46)
[2021-01-14] MEDS: ENOXAPARIN 40 MG/0.4 ML SYRINGE SUBQ SCH ×2 (10:26→21:15)
[2021-01-14] MEDS: LOSARTAN 50 MG TABLET PO SCH (10:28)
[2021-01-14] MEDS: ISOSORBIDE MONONITRATE ER 30 MG TABLET PO SCH ×2 (10:29→21:15)
[2021-01-14] MEDS: TAMSULOSIN 0.4 MG CAPSULE PO SCH (10:37)
[2021-01-14] MEDS: NYSTATIN CREAM 15 GM TUBE TOP SCH ×2 (10:41→21:15)
--- NOTE | 2021-01-14 13:16 | PROVIDER PROGRESS NOTE ---
Subjective - Prog Note Date Prog Note Date: 01/14/21 - Subjective Subjective: Continues to report feeling well. Denies any shortness of breath. He was placed on the V 30 BiPAP overnight and tolerated it well per respiratory. He feels like his edema is improving and his feet feel less tight/swollen. Current Medications - Current Medications Current Medications: Active Medications Acetaminophen (Acetaminophen 325 Mg Tablet) 650 mg PO Q4HR PRN PRN Reason: Pain 1 to 4 Albuterol (Albuterol Neb 2.5 Mg/3 Ml) 2.5 mg INH Q4HR PRN PRN Reason: Wheezing Last Admin: 01/13/21 07:44 Dose: 2.5 mg Documented by: Aspirin (Aspirin Ec 81 Mg Tablet) 81 mg PO DAILY [facility] Last Admin: 01/14/21 08:12 Dose: 81 mg Documented by: Atorvastatin Calcium (Atorvastatin 40 Mg Tablet) 80 mg PO DAILY [facility] Last Admin: 01/14/21 10:22 Dose: 80 mg Documented by: Chlorhexidine Gluconate (Chlorhexidine Gluconate 15 Ml Udc) 15 ml PO BID [facility] Last Admin: 01/14/21 10:23 Dose: Not Given Documented by: Enoxaparin Sodium (Enoxaparin 40 Mg/0.4 Ml Syringe) 40 mg SUBQ BID [facility] Last Admin: 01/14/21 10:26 Dose: 40 mg Documented by: Furosemide (Furosemide 40 Mg/4 Ml Vial) 40 mg IVP DAILY [facility] Insulin Aspart (Insulin Aspart 300 Unit/3 Ml Pen) 3 - 11 unit SUBQ 0800,1200,1700,2100 [facility]; Protocol Last Admin: 01/14/21 11:52 Dose: Not Given Documented by: Insulin Aspart (Insulin Aspart 300 Unit/3 Ml Pen) 5 unit SUBQ TIDWM [facility] Last Admin: 01/14/21 11:56 Dose: 5 unit Documented by: Insulin Glargine (Insulin Glargine 300 Unit/3 Ml Pen) 80 unit SUBQ QPM [facility] Isosorbide Mononitrate (Isosorbide Mononitrate Er 30 Mg Tablet) 30 mg PO BID [facility] Last Admin: 01/14/21 10:29 Dose: 30 mg Documented by: Losartan Potassium (Losartan 50 Mg Tablet) 100 mg PO DAILY [facility] Last Admin: 01/14/21 10:28 Dose: 100 mg Documented by: Nystatin (Nystatin Cream 15 Gm Tube) 1 applic TOP BID [facility] Last Admin: 01/14/21 10:41 Dose: 1 applic Documented by: Ondansetron HCl (Ondansetron Odt 4 Mg Tablet) 4 mg TL Q6HR PRN PRN Reason: Nausea / Vomiting Ondansetron HCl (Ondansetron 4 Mg/2 Ml Vial) 4 mg IVP Q6HR PRN PRN Reason: Nausea / Vomiting Oxycodone HCl (Oxycodone 5 Mg Tablet) 5 mg PO Q4HR PRN PRN Reason: Pain 5 to 7 Saccharomyces Boulardii (Saccharomyces Boulardii 250 Mg Capsule) 250 mg PO B IDWM [facility] Last Admin: 01/14/21 08:12 Dose: 250 mg Documented by: Sodium Chloride (Sodium Chloride Flush 0.9% 10 Ml Syringe) 10 ml IVP 0100,0900,1700 [facility] Last Admin: 01/14/21 10:33 Dose: 10 ml Documented by: Sodium Chloride (Sodium Chloride Flush 0.9% 10 Ml Syringe) 10 ml IVP PRN PRN PRN Reason: NEEDED PER PROVIDER ORDERS Tamsulosin HCl (Tamsulosin 0.4 Mg Capsule) 0.4 mg PO DAILY [facility] Last Admin: 01/14/21 10:37 Dose: Not Given Documented by: Aspirin [Aspir 81] 81 mg PO HS 02/26/14 Atorvastatin Calcium [Lipitor] 80 mg PO HS 02/26/14 Insulin Glargine,Hum.rec.anlog [Lantus] 100 unit SQ HS 02/26/14 Losartan [Cozaar] 100 mg PO DAILY 02/26/14 Glipizide 10 mg PO BIDAC 12/31/20 Metformin HCl [Fortamet] 1,000 mg PO BID 12/31/20 Tamsulosin [Flomax] 0.4 mg PO BID 12/31/20 Amlodipine Besylate [Norvasc] 10 mg PO DAILY 01/12/21 Furosemide [Lasix] 80 mg PO DAILY 01/12/21 Insulin Aspart [NovoLOG] 10 units SQ TIDWM 01/12/21 Isosorbide Mononitrate [Isosorbide Mononitrate ER] 30 mg PO BID 01/12/21 Objective - Vital Signs/Intake & Output Reviewed Vital Signs: Yes Vital Signs: Vital Signs x48h Temp Pulse Resp BP Pulse Ox 01/14/21 12:09 72 19 150/64 H 93 01/14/21 12:00 37 C 77 18 165/62 H 92 01/14/21 11:00 73 18 140/60 H 92 01/14/21 09:00 37.1 C 72 22 149/62 H 92 01/14/21 08:00 37.1 C 72 20 158/65 H 92 01/14/21 05:00 56 L 24 134/57 H 94 Intake & Output: Intake & Output 01/11/21 01/12/21 01/13/21 01/14/21 23:59 23:59 23:59 23:59 Intake Total 3783.333 2310 880 Output Total 2830 8115 1750 Balance 953.333 -7186 -870 - Objective General Appearance: positive: No acute distress, Alert Eyes Bilateral: positive: Normal inspection, Conjunctivae nml ENT: positive: ENT inspection nml, Other (Nasal cannula in place.) Neck: positive: Nml inspection Respiratory: positive: No respiratory distress, Other (Diminished bilaterally.) Cardiovascular: positive: Systolic murmur. negative: Irregularly irregular, Tachycardia, Bradycardia Abdomen: positive: Non-tender, No distention. negative: Tenderness Skin: positive: Warm, Dry, Other (He has chronic mild erythema of the bilateral lower extremities with mild dermatitis.) Extremities: positive: Pedal edema (+2 to +3 pitting in bilateral lower extremities. This does not appear improved although still significant.) Neurologic/Psychiatric: negative: Disoriented to person, Disoriented to place - Lab Results Fish Bones: 01/14/21 04:03 01/14/21 04:03 Other Labs: Lab Results x24hrs 01/14/21 01/14/21 01/14/21 Range/Units 11:51 08:01 04:03 WBC (4.8-10.8) x10^3/uL RBC (4.70-6.10) 10^6/uL Hgb (14.0-18.0) g/dL Hct (42.0-52.0) % MCV (80.0-94.0) fL MCH (27.0-31.0) pg MCHC (32.0-36.0) g/dL RDW (12.0-15.0) % Plt Count (130-450) 10^3/uL MPV (7.4-11.4) fL Neut # (Auto) (1.5-6.6) 10^3/uL Lymph # (Auto) (1.5-3.5) 10^3/uL Dickey # (Auto) (0.0-1.0) 10^3/uL Eos # (Auto) (0.0-0.7) 10^3/uL Baso # (Auto) (0.0-0.1) 10^3/uL Absolute Nucleated RBC x10^3/uL Nucleated RBC % /100WBC Manual Slide Review WBC Morphology (NORMAL) Platelet Estimate (NORMAL) Platelet Morphology (NORMAL) RBC Morph Micro Appear (NORMAL) Sodium 143 (135-145) mmol/L Potassium 4.8 (3.5-5.0) mmol/L Chloride 92 L (101-111) mmol/L Carbon Dioxide 37 H (21-32) mmol/L Anion Gap 14.0 H (6-13) BUN 23 H (6-20) mg/dL Creatinine 1.0 (0.6-1.2) mg/dL Estimated GFR (MDRD) 75 L (>89) Glucose 63 L (70-100) mg/dL POC Whole Bld Glucose 114 H 69 L (70 - 100) mg/dL Calcium 9.1 (8.5-10.3) mg/dL 01/14/21 01/13/21 01/13/21 Range/Units 04:03 20:50 16:40 WBC 7.6 (4.8-10.8) x10^3/uL RBC 4.93 (4.70-6.10) 10^6/uL Hgb 13.2 L (14.0-18.0) g/dL Hct 46.8 (42.0-52.0) % MCV 94.9 H (80.0-94.0) fL MCH 26.8 L (27.0-31.0) pg MCHC 28.2 L (32.0-36.0) g/dL RDW 15.9 H (12.0-15.0) % Plt Count 193 (130-450) 10^3/uL MPV 9.8 (7.4-11.4) fL Neut # (Auto) 4.7 (1.5-6.6) 10^3/uL Lymph # (Auto) 2.2 (1.5-3.5) 10^3/uL Dickey # (Auto) 0.5 (0.0-1.0) 10^3/uL Eos # (Auto) 0.2 (0.0-0.7) 10^3/uL Baso # (Auto) 0.0 (0.0-0.1) 10^3/uL Absolute Nucleated RBC 0.00 x10^3/uL Nucleated RBC % 0.0 /100WBC Manual Slide Review Indicated WBC Morphology NORMAL APPEARANCE (NORMAL) Platelet Estimate NORMAL (130-450,000) (NORMAL) Platelet Morphology NORMAL APPEARANCE (NORMAL) RBC Morph Micro Appear 1+ HYPOCHROMASIA (NORMAL) Sodium (135-145) mmol/L Potassium (3.5-5.0) mmol/L Chloride (101-111) mmol/L Carbon Dioxide (21-32) mmol/L Anion Gap (6-13) BUN (6-20) mg/dL Creatinine (0.6-1.2) mg/dL Estimated GFR (MDRD) (>89) Glucose (70-100) mg/dL POC Whole Bld Glucose 134 H 72 (70 - 100) mg/dL Calcium (8.5-10.3) mg/dL 01/13/21 01/13/21 01/12/21 Range/Units 11:45 07:35 20:19 WBC (4.8-10.8) x10^3/uL RBC (4.70-6.10) 10^6/uL Hgb (14.0-18.0) g/dL Hct (42.0-52.0) % MCV (80.0-94.0) fL MCH (27.0-31.0) pg MCHC (32.0-36.0) g/dL RDW (12.0-15.0) % Plt Count (130-450) 10^3/uL MPV (7.4-11.4) fL Neut # (Auto) (1.5-6.6) 10^3/uL Lymph # (Auto) (1.5-3.5) 10^3/uL Dickey # (Auto) (0.0-1.0) 10^3/uL Eos # (Auto) (0.0-0.7) 10^3/uL Baso # (Auto) (0.0-0.1) 10^3/uL Absolute Nucleated RBC x10^3/uL Nucleated RBC % /100WBC Manual Slide Review WBC Morphology (NORMAL) Platelet Estimate (NORMAL) Platelet Morphology (NORMAL) RBC Morph Micro Appear (NORMAL) Sodium (135-145) mmol/L Potassium (3.5-5.0) mmol/L Chloride (101-111) mmol/L Carbon Dioxide (21-32) mmol/L Anion Gap (6-13) BUN (6-20) mg/dL Creatinine (0.6-1.2) mg/dL Estimated GFR (MDRD) (>89) Glucose (70-100) mg/dL POC Whole Bld Glucose 114 H 82 124 H (70 - 100) mg/dL Calcium (8.5-10.3) mg/dL 01/12/21 01/12/21 01/12/21 Range/Units 16:49 11:51 07:58 WBC (4.8-10.8) x10^3/uL RBC (4.70-6.10) 10^6/uL Hgb (14.0-18.0) g/dL Hct (42.0-52.0) % MCV (80.0-94.0) fL MCH (27.0-31.0) pg MCHC (32.0-36.0) g/dL RDW (12.0-15.0) % Plt Count (130-450) 10^3/uL MPV (7.4-11.4) fL Neut # (Auto) (1.5-6.6) 10^3/uL Lymph # (Auto) (1.5-3.5) 10^3/uL Dickey # (Auto) (0.0-1.0) 10^3/uL Eos # (Auto) (0.0-0.7) 10^3/uL Baso # (Auto) (0.0-0.1) 10^3/uL Absolute Nucleated RBC x10^3/uL Nucleated RBC % /100WBC Manual Slide Review WBC Morphology (NORMAL) Platelet Estimate (NORMAL) Platelet Morphology (NORMAL) RBC Morph Micro Appear (NORMAL) Sodium (135-145) mmol/L Potassium (3.5-5.0) mmol/L Chloride (101-111) mmol/L Carbon Dioxide (21-32) mmol/L Anion Gap (6-13) BUN (6-20) mg/dL Creatinine (0.6-1.2) mg/dL Estimated GFR (MDRD) (>89) Glucose (70-100) mg/dL POC Whole Bld Glucose 137 H 186 H 135 H (70 - 100) mg/dL Calcium (8.5-10.3) mg/dL 01/12/21 01/12/21 01/11/21 Range/Units 01:38 00:39 21:27 WBC (4.8-10.8) x10^3/uL RBC (4.70-6.10) 10^6/uL Hgb (14.0-18.0) g/dL Hct (42.0-52.0) % MCV (80.0-94.0) fL MCH (27.0-31.0) pg MCHC (32.0-36.0) g/dL RDW (12.0-15.0) % Plt Count (130-450) 10^3/uL MPV (7.4-11.4) fL Neut # (Auto) (1.5-6.6) 10^3/uL Lymph # (Auto) (1.5-3.5) 10^3/uL Dickey # (Auto) (0.0-1.0) 10^3/uL Eos # (Auto) (0.0-0.7) 10^3/uL Baso # (Auto) (0.0-0.1) 10^3/uL Absolute Nucleated RBC x10^3/uL Nucleated RBC % /100WBC Manual Slide Review WBC Morphology (NORMAL) Platelet Estimate (NORMAL) Platelet Morphology (NORMAL) RBC Morph Micro Appear (NORMAL) Sodium (135-145) mmol/L Potassium (3.5-5.0) mmol/L Chloride (101-111) mmol/L Carbon Dioxide (21-32) mmol/L Anion Gap (6-13) BUN (6-20) mg/dL Creatinine (0.6-1.2) mg/dL Estimated GFR (MDRD) (>89) Glucose (70-100) mg/dL POC Whole Bld Glucose 159 H 79 181 H (70 - 100) mg/dL Calcium (8.5-10.3) mg/dL ABX Reporting Has patient been on IV antibiotics over the past 48 hours?: No Assessment/Plan - Problem List (1) Acute on chronic respiratory failure with hypoxia and hypercapnia Impression: He remains on his baseline 2 L of oxygen throughout the day and has not had episodes of hypoxia while on BiPAP at night. When we did trial his home CPAP, he desaturated to 60s and had multiple episodes of apnea. It is felt that he is not a safe discharge home and we are unable to set up the appropriate BiPAP/trilogy at home. We spoke with the [facility] yesterday to discuss transfer to higher level of care and he was accepted there. Unfortunately at this time they no longer have beds available but they would still like him transferred to their facility once a bed is available. At this time, he will remain hospitalized here and we will continue with BiPAP therapy at night and his 2 L of oxygen thr oughout the day. He needs to be transferred to higher level of care for pulmonology evaluation as he will need to be set up with a trilogy/BiPAP through the [facility]. (2) Obesity hypoventilation syndrome Impression: This is the cause of his acute on chronic hypercapnic respiratory failure and his encephalopathy on admission. He has done well since being placed on BiPAP at night. (3) Bilateral lower extremity edema Impression: This is improved but still quite significant. His renal function is actually stable today and although his echocardiogram did not suggest heart failure, he does appear fluid overloaded and so we will restart him back on Lasix 40 mg IV daily. His duplex was negative for DVT. We will continue with leg elevation. (4) YONATAN on CPAP Impression: He did well overnight with the V-30 BiPAP. He did not desaturate or have significant episodes of apnea. We will continue this while he remains hospitalized. (5) Controlled type 2 diabetes mellitus without complication, with long-term current use of insulin Impression: Been well controlled overall but he did have an episode of hypoglycemia this morning with blood glucose in the 60s. I have decreased his Lantus to 80 units 100 units in the evening and I have decreased his nutritional insulin to 5 units with meals. His A1c was 7%. Continue with carb controlled diet. (6) HTN (hypertension) Impression: His blood pressure is better controlled on the increased dose of losartan with systolic in the 130s to 140s. We are continuing to hold amlodipine given his lower extremity edema. Qualifiers: Hypertension type: essential hypertension Qualified Code(s): I10 - E ssential (primary) hypertension (7) Mild aortic stenosis Impression: This was evident on the echocardiogram with an aortic valve area of 1.5 cm. The mean gradient is 25 mmHg. This was discussed with the patient and he will need outpatient follow-up with cardiology or his primary care provider as this will need to be monitored. (8) Morbid obesity Impression: We have discussed the importance of weight loss given his obstructive sleep apnea. He is motivated to lose weight and he was seen by nutrition. (9) Chronic venous stasis dermatitis of both lower extremities Impression: This is chronic and stable. His edema is improving slowly. We will continue with IV diuresis as mentioned above. (10) CO2 narcosis Impression: This has resolved and was secondary to obesity hypoventilation syndrome.
[2021-01-14] MEDS: FUROSEMIDE 40 MG/4 ML VIAL IVP SCH (13:24)
[2021-01-14] MEDS: INSULIN GLARGINE 300 UNIT/3 ML PEN SUBQ SCH (21:27)
[2021-01-15 04:54] LABS: BASOPHILS % (AUTO) 0.3 %; EOSINOPHILS # (AUTO) 0.1 10^3/uL (0.0-0.7); HCT - HEMATOCRIT 42.9 % (42.0-52.0); HGB - HEMOGLOBIN 12.5 g/dL (14.0-18.0); LYMPHOCYTES # (AUTO) 1.5 10^3/uL (1.5-3.5); LYMPHOCYTES % (AUTO) 22.1 %; MEAN CORPUSCULAR HEMOGLOBIN 26.9 pg (27.0-31.0); MEAN CORPUSCULAR HGB CONC 29.1 g/dL (32.0-36.0); MEAN CORPUSCULAR VOLUME 92.3 fL (80.0-94.0); MEAN PLATELET VOLUME 9.5 fL (7.4-11.4); MONOCYTES # (AUTO) 0.5 10^3/uL (0.0-1.0); NEUTROPHILS # (AUTO) 4.7 10^3/uL (1.5-6.6); NEUTROPHILS % (AUTO) 68.2 %; PLT - PLATELET COUNT 183 10^3/uL (130-450); RED BLOOD COUNT 4.65 10^6/uL (4.70-6.10); RED CELL DISTRIBUTION WIDTH 15.8 % (12.0-15.0)
[2021-01-15 05:03] LABS: CALCIUM 9.1 mg/dL (8.5-10.3); POTASSIUM 4.3 mmol/L (3.5-5.0)
[2021-01-15] MEDS: SODIUM CHLORIDE FLUSH 0.9% 10 ML SYRINGE IVP SCH ×3 (07:01→18:16)
[2021-01-15] MEDS: INSULIN ASPART 300 UNIT/3 ML PEN SUBQ SCH ×7 (08:23→20:53)
[2021-01-15] MEDS: ASPIRIN EC 81 MG TABLET PO SCH (08:33)
[2021-01-15] MEDS: LOSARTAN 50 MG TABLET PO SCH (08:33)
[2021-01-15] MEDS: ATORVASTATIN 40 MG TABLET PO SCH (08:33)
[2021-01-15] MEDS: ISOSORBIDE MONONITRATE ER 30 MG TABLET PO SCH ×2 (08:34→20:48)
[2021-01-15] MEDS: SACCHAROMYCES BOULARDII 250 MG CAPSULE PO SCH ×2 (08:34→17:02)
[2021-01-15] MEDS: TAMSULOSIN 0.4 MG CAPSULE PO SCH (08:34)
[2021-01-15] MEDS: CHLORHEXIDINE GLUCONATE 15 ML UDC PO SCH ×2 (08:35→21:18)
[2021-01-15] MEDS: FUROSEMIDE 40 MG/4 ML VIAL IVP SCH (08:37)
[2021-01-15] MEDS: ENOXAPARIN 40 MG/0.4 ML SYRINGE SUBQ SCH ×2 (08:37→20:48)
[2021-01-15] MEDS: NYSTATIN CREAM 15 GM TUBE TOP SCH ×2 (08:37→20:49)
--- NOTE | 2021-01-15 11:57 | PROVIDER PROGRESS NOTE ---
Subjective - Prog Note Date Prog Note Date: 01/15/21 - Subjective Subjective: Reports he continues to feel better each day. He has been able to ambulate a little bit more and feels less short of breath with ambulation. He also feels like his lower extremity edema is improving. He tolerated CPAP on our V30 machine last night. Current Medications - Current Medications Current Medications: Active Medications Acetaminophen (Acetaminophen 325 Mg Tablet) 650 mg PO Q4HR PRN PRN Reason: Pain 1 to 4 Albuterol (Albuterol Neb 2.5 Mg/3 Ml) 2.5 mg INH Q4HR PRN PRN Reason: Wheezing Last Admin: 01/13/21 07:44 Dose: 2.5 mg Documented by: Aspirin (Aspirin Ec 81 Mg Tablet) 81 mg PO DAILY [facility] Last Admin: 01/15/21 08:33 Dose: 81 mg Documented by: Atorvastatin Calcium (Atorvastatin 40 Mg Tablet) 80 mg PO DAILY [facility] Last Admin: 01/15/21 08:33 Dose: 80 mg Documented by: Chlorhexidine Gluconate (Chlorhexidine Gluconate 15 Ml Udc) 15 ml PO BID [facility] Last Admin: 01/15/21 08:35 Dose: 15 ml Documented by: Enoxaparin Sodium (Enoxaparin 40 Mg/0.4 Ml Syringe) 40 mg SUBQ BID [facility] Last Admin: 01/15/21 08:37 Dose: 40 mg Documented by: Furosemide (Furosemide 40 Mg/4 Ml Vial) 40 mg IVP DAILY [facility] Last Admin: 01/15/21 08:37 Dose: 40 mg Documented by: Insulin Aspart (Insulin Aspart 300 Unit/3 Ml Pen) 3 - 11 unit SUBQ 0800,1200,1700,2100 [facility]; Protocol Last Admin: 01/15/21 11:45 Dose: 5 unit Documented by: Insulin Aspart (Insulin Aspart 300 Unit/3 Ml Pen) 5 unit SUBQ TIDWM COUNT [facility] Last Admin: 01/15/21 11:44 Dose: 5 unit Documented by: Insulin Glargine (Insulin Glargine 300 Unit/3 Ml Pen) 80 unit SUBQ QPM COUNT [facility] Last Admin: 01/14/21 21:27 Dose: 80 unit Documented by: Isosorbide Mononitrate (Isosorbide Mononitrate Er 30 Mg Tablet) 30 mg PO BID [facility] Last Admin: 01/15/21 08:34 Dose: 30 mg Documented by: Losartan Potassium (Losartan 50 Mg Tablet) 100 mg PO DAILY [facility] Last Admin: 01/15/21 08:33 Dose: 100 mg Documented by: Nystatin (Nystatin Cream 15 Gm Tube) 1 applic TOP BID COUNT [facility] Last Admin: 01/15/21 08:37 Dose: 1 applic Documented by: Ondansetron HCl (Ondansetron Odt 4 Mg Tablet) 4 mg TL Q6HR PRN PRN Reason: Nausea / Vomiting Ondansetron HCl (Ondansetron 4 Mg/2 Ml Vial) 4 mg IVP Q6HR PRN PRN Reason: Nausea / Vomiting Oxycodone HCl (Oxycodone 5 Mg Tablet) 5 mg PO Q4HR PRN PRN Reason: Pain 5 to 7 Saccharomyces Boulardii (Saccharomyces Boulardii 250 Mg Capsule) 250 mg PO BIDWM COUNT [facility]CLUD[facility] Last Admin: 01/15/21 08:34 Dose: 250 mg Documented by: Sodium Chloride (Sodium Chloride Flush 0.9% 10 Ml Syringe) 10 ml IVP 0100,0900,1700 COUNT [facility] Last Admin: 01/15/21 08:37 Dose: 10 ml Documented by: Sodium Chloride (Sodium Chloride Flush 0.9% 10 Ml Syringe) 10 ml IVP PRN PRN PRN Reason: NEEDED PER PROVIDER ORDERS Last Admin: 01/14/21 13:26 Dose: 10 ml Documented by: Tamsulosin HCl (Tamsulosin 0.4 Mg Capsule) 0.4 mg PO DAILY COUNT [facility] Last Admin: 01/15/21 08:34 Dose: 0.4 mg Documented by: Aspirin [Aspir 81] 81 mg PO 02/26/14 Atorvastatin Calcium [Lipitor] 80 mg PO 02/26/14 Insulin Glargine,Hum.rec.anlog [Lantus] 100 unit SQ 02/26/14 Losartan [Cozaar] 100 mg PO DAILY 02/26/14 Glipizide 10 mg PO BIDAC 12/31/20 Metformin HCl [Fortamet] 1,000 mg PO BID 12/31/20 Tamsulosin [Flomax] 0.4 mg PO BID 12/31/20 Amlodipine Besylate [Norvasc] 10 mg PO DAILY 01/12/21 Furosemide [Lasix] 80 mg PO DAILY 01/12/21 Insulin Aspart [NovoLOG] 10 units SQ TIDWM 01/12/21 Isosorbide Mononitrate [Isosorbide Mononitrate ER] 30 mg PO BID 01/12/21 Objective - Vital Signs/Intake & Output Reviewed Vital Signs: Yes Vital Signs: Vital Signs x48h Temp Pulse Pulse Resp BP Pulse Ox 01/15/21 09:51 74 01/15/21 07:58 37.4 C 71 22 136/52 H 91 L 01/15/21 05:00 36.7 C 72 25 H 133/57 H 93 Intake & Output: Intake & Output 01/12/21 01/13/21 01/14/21 01/15/21 23:59 23:59 23:59 23:59 Intake Total 3783.333 2310 1880 900 Output Total 2830 5125 4260 3830 Balance 953.333 -2815 -3680 -2930 - Objective General Appearance: positive: No acute distress, Alert Eyes Bilateral: positive: Normal inspection, Conjunctivae nml ENT: positive: ENT inspection nml, Other (Nasal cannula in place.) Neck: positive: Nml inspection Respiratory: positive: No respiratory distress, Other (Diminished bilaterally.). negative: Wheezes, Rales Cardiovascular: positive: Regular rate & rhythm, Systolic murmur. negative: Tachycardia Abdomen: positive: Non-tender, No distention. negative: Tenderness Skin: positive: Warm, Dry, Other (He has chronic bilateral erythema over the anterior aspect of both legs with dermatitis present.) Extremities: positive: Pedal edema (+2 pitting edema in the bilateral lower extremities.) Neurologic/Psychiatric: positive: Motor nml. negative: Disoriented to person, Disoriented to place - Lab Results Fish Bones: 01/15/21 04:42 01/15/21 04:42 Other Labs: Lab Results x24hrs 01/15/21 01/15/21 01/15/21 Range/Units 11:38 04:42 04:42 WBC 7.0 (4.8-10.8) x10^3/uL RBC 4.65 L (4.70-6.10) 10^6/uL Hgb 12.5 L (14.0-18.0) g/dL Hct 42.9 (42.0-52.0) % MCV 92.3 (80.0-94.0) fL MCH 26.9 L (27.0-31.0) pg MCHC 29.1 L (32.0-36.0) g/dL RDW 15.8 H (12.0-15.0) % Plt Count 183 (130-450) 10^3/uL MPV 9.5 (7.4-11.4) fL Neut # (Auto) 4.7 (1.5-6.6) 10^3/uL Lymph # (Auto) 1.5 (1.5-3.5) 10^3/uL Cannon # (Auto) 0.5 (0.0-1.0) 10^3/uL Eos # (Auto) 0.1 (0.0-0.7) 10^3/uL Baso # (Auto) 0.0 (0.0-0.1) 10^3/uL Absolute Nucleated RBC 0.00 x10^3/uL Nucleated RBC % 0.0 /100WBC Sodium 140 (135-145) mmol/L Potassium 4.3 (3.5-5.0) mmol/L Chloride 91 L (101-111) mmol/L Carbon Dioxide 40 H* (21-32) mmol/L Anion Gap 9.0 (6-13) BUN 22 H (6-20) mg/dL Creatinine 1.0 (0.6-1.2) mg/dL Estimated GFR (MDRD) 75 L (>89) Glucose 115 H (70-100) mg/dL POC Whole Bld Glucose 204 H (70 - 100) mg/dL Calcium 9.1 (8.5-10.3) mg/dL 01/14/21 01/14/21 Range/Units 21:17 16:58 WBC (4.8-10.8) x10^3/uL RBC (4.70-6.10) 10^6/uL Hgb (14.0-18.0) g/dL Hct (42.0-52.0) % MCV (80.0-94.0) fL MCH (27.0-31.0) pg MCHC (32.0-36.0) g/dL RDW (12.0-15.0) % Plt Count (130-450) 10^3/uL MPV (7.4-11.4) fL Neut # (Auto) (1.5-6.6) 10^3/uL Lymph # (Auto) (1.5-3.5) 10^3/uL Cannon # (Auto) (0.0-1.0) 10^3/uL Eos # (Auto) (0.0-0.7) 10^3/uL Baso # (Auto) (0.0-0.1) 10^3/uL Absolute Nucleated RBC x10^3/uL Nucleated RBC % /100WBC Sodium (135-145) mmol/L Potassium (3.5-5.0) mmol/L Chloride (101-111) mmol/L Carbon Dioxide (21-32) mmol/L Anion Gap (6-13) BUN (6-20) mg/dL Creatinine (0.6-1.2) mg/dL Estimated GFR (MDRD) (>89) Glucose (70-100) mg/dL POC Whole Bld Glucose 230 H 130 H (70 - 100) mg/dL Calcium (8.5-10.3) mg/dL ABX Reporting Has patient been on IV antibiotics over the past 48 hours?: No Assessment/Plan - Problem List (1) Acute on chronic respiratory failure with hypoxia and hypercapnia Impression: He continues to do well on his baseline 2 L of oxygen throughout the day. He was on auto titrate CPAP last night without hypoxia and no reported significant episodes. He has also been diuresed with excellent urine output given his x-ray was concerning for pulmonary vascular congestion although his echocardiogram did not suggest heart failure. I did repeat a chest x-ray today which just shows cardiomegaly without pulmonary vascular congestion. We will trial him back on his home CPAP today to see if he has further episodes of apnea or hypoxia as he did 2 nights ago. He has already been accepted at the [facility] to be evaluated by pulmonology but unfortunately did not have any beds available this likely will not happen for other 2 days. (2) Obesity hypoventilation syndrome Impression: This is the cause of his acute on chronic hypercapnic respiratory failure. He has been doing well since treated with BiPAP. (3) Bilateral lower extremity edema Impression: This continues to improve but he still has significant edema. Duplex was negative for DVT. Repeat chest x-ray showed no pulmonary vascular congestion is echocardiogram did not suggest heart failure. This may have been due to the use of amlodipine. He has been diuresed with IV Lasix and we will switch him back to oral Lasix. We will continue with leg elevation. (4) YONATAN on CPAP Impression: He did not do well with his home CPAP when this was trialed 2 nights ago. He has done well this past 2 nights on our V-30 CPAP autotitrated. We will trial his home CPAP once again tonight. (5) Controlled type 2 diabetes mellitus without complication, with long-term current use of insulin Impression: Blood glucose has been well controlled. We did decrease his home Lantus dose due to hypoglycemia in the morning. We will continue his current regimen and c arb controlled diet. (6) HTN (hypertension) Impression: His blood pressure is well controlled on the current dose of losartan which we will continue. Qualifiers: Hypertension type: essential hypertension Qualified Code(s): I10 - Essential (primary) hypertension (7) Mild aortic stenosis Impression: This was evident on echocardiogram this admission. He will need outpatient follow-up. (8) Morbid obesity Impression: This is contributing to his sleep apnea and we discussed the importance of weight loss. He was seen by nutrition during his hospitalization and he is motivated to lose weight. (9) Chronic venous stasis dermatitis of both lower extremities Impression: This is chronic and stable. We are continuing to keep his legs elevated and we have resumed oral Lasix to help with the edema. (10) CO2 narcosis Impression: This was the cause of his altered mental status on admission and was secondary to obesity hypoventilation syndrome. Resolved.
--- NOTE | 2021-01-15 13:15 | XRAY Report ---
PROCEDURE: Chest 1 View X-Ray INDICATIONS: Dyspnea. Hypoxia. Lower extremity edema. TECHNIQUE: One view of the chest was acquired. COMPARISON: 01/11/2021 FINDINGS: Surgical changes and devices: None. Lungs and pleura: No pleural effusions or pneumothorax. Lungs are clear. Mediastinum: Mediastinal contours appear normal. Heart size is enlarged similar to the prior study. Bones and chest wall: No suspicious bony lesions. Overlying soft tissues appear unremarkable. IMPRESSION: Cardiomegaly without findings of pulmonary edema currently. Reviewed by: Moody Villalobos MD on 01/15/2021 1:14 PM PDT Approved by: Moody Villalobos MD on 01/15/2021 1:14 PM PDT Station ID: [id number]
[2021-01-15] MEDS: INSULIN GLARGINE 300 UNIT/3 ML PEN SUBQ SCH (20:52)
[2021-01-16 04:49] LABS: BASOPHILS % (AUTO) 0.3 %; EOSINOPHILS # (AUTO) 0.2 10^3/uL (0.0-0.7); EOSINOPHILS % (AUTO) 2.3 %; HCT - HEMATOCRIT 44.7 % (42.0-52.0); LYMPHOCYTES # (AUTO) 1.4 10^3/uL (1.5-3.5); LYMPHOCYTES % (AUTO) 19.7 %; MEAN CORPUSCULAR HEMOGLOBIN 27.1 pg (27.0-31.0); MEAN CORPUSCULAR HGB CONC 29.1 g/dL (32.0-36.0); MEAN CORPUSCULAR VOLUME 93.3 fL (80.0-94.0); MEAN PLATELET VOLUME 9.4 fL (7.4-11.4); MONOCYTES # (AUTO) 0.5 10^3/uL (0.0-1.0); MONOCYTES % (AUTO) 6.8 %; NEUTROPHILS % (AUTO) 70.3 %; PLT - PLATELET COUNT 173 10^3/uL (130-450); RED BLOOD COUNT 4.79 10^6/uL (4.70-6.10); RED CELL DISTRIBUTION WIDTH 15.9 % (12.0-15.0)
[2021-01-16 04:57] LABS: CALCIUM 9.2 mg/dL (8.5-10.3); CREATININE 1.1 mg/dL (0.6-1.2); POTASSIUM 4.6 mmol/L (3.5-5.0)
[2021-01-16] MEDS ORDERED: PROCAINAMIDE 100 MG/1 ML 10 ML MDV IV ONE (07:01)
[2021-01-16] MEDS: SODIUM CHLORIDE FLUSH 0.9% 10 ML SYRINGE IVP SCH ×4 (07:01→23:20)
[2021-01-16] MEDS ORDERED: PROCAINAMIDE 1,000 MG in SODIUM CHLORIDE 0.9% 240 ML IV SCH (08:00)
[2021-01-16] MEDS: INSULIN ASPART 300 UNIT/3 ML PEN SUBQ SCH ×8 (08:46→20:54)
[2021-01-16] MEDS: ASPIRIN EC 81 MG TABLET PO SCH (09:07)
[2021-01-16] MEDS: FUROSEMIDE 40 MG TABLET PO SCH (09:07)
[2021-01-16] MEDS: ISOSORBIDE MONONITRATE ER 30 MG TABLET PO SCH ×2 (09:07→20:55)
[2021-01-16] MEDS: SACCHAROMYCES BOULARDII 250 MG CAPSULE PO SCH ×2 (09:07→16:50)
[2021-01-16] MEDS: LOSARTAN 50 MG TABLET PO SCH (09:08)
[2021-01-16] MEDS: ATORVASTATIN 40 MG TABLET PO SCH (09:08)
[2021-01-16] MEDS: ENOXAPARIN 40 MG/0.4 ML SYRINGE SUBQ SCH ×2 (09:09→20:53)
[2021-01-16] MEDS: CHLORHEXIDINE GLUCONATE 15 ML UDC PO SCH ×2 (09:09→20:53)
[2021-01-16] MEDS: TAMSULOSIN 0.4 MG CAPSULE PO SCH (09:09)
[2021-01-16] MEDS: NYSTATIN CREAM 15 GM TUBE TOP SCH ×2 (09:13→20:53)
--- NOTE | 2021-01-16 11:22 | PROVIDER PROGRESS NOTE ---
Subjective - Prog Note Date Prog Note Date: 01/16/21 - Subjective Subjective: Reports feeling tired this morning and that he did not sleep well last night. We did trial his home CPAP but he was ultimately switched to our own CPAP due to apneic episodes. Current Medications - Current Medications Current Medications: Active Medications Acetaminophen (Acetaminophen 325 Mg Tablet) 650 mg PO Q4HR PRN PRN Reason: Pain 1 to 4 Last Admin: 01/16/21 10:23 Dose: 650 mg Documented by: Albuterol (Albuterol Neb 2.5 Mg/3 Ml) 2.5 mg INH Q4HR PRN PRN Reason: Wheezing Last Admin: 01/13/21 07:44 Dose: 2.5 mg Documented by: Aspirin (Aspirin Ec 81 Mg Tablet) 81 mg PO DAILY [facility] Last Admin: 01/16/21 09:07 Dose: 81 mg Documented by: Atorvastatin Calcium (Atorvastatin 40 Mg Tablet) 80 mg PO DAILY [facility] Last Admin: 01/16/21 09:08 Dose: 80 mg Documented by: Chlorhexidine Gluconate (Chlorhexidine Gluconate 15 Ml Udc) 15 ml PO BID [facility] Last Admin: 01/16/21 09:09 Dose: 15 ml Documented by: Enoxaparin Sodium (Enoxaparin 40 Mg/0.4 Ml Syringe) 40 mg SUBQ BID [facility] Last Admin: 01/16/21 09:09 Dose: 40 mg Documented by: Furosemide (Furosemide 40 Mg Tablet) 40 mg PO DAILY [facility] Last Admin: 01/16/21 09:07 Dose: 40 mg Documented by: Insulin Aspart (Insulin Aspart 300 Unit/3 Ml Pen) 3 - 11 unit SUBQ 0800,1200,1700,2100 [facility]; Protocol Last Admin: 01/16/21 08:46 Dose: Not Given Documented by: Insulin Aspart (Insulin Aspart 300 Unit/3 Ml Pen) 5 unit SUBQ TIDWM [facility] Last Admin: 01/16/21 09:11 Dose: 5 unit Documented by: Insulin Glargine (Insulin Glargine 300 Unit/3 Ml Pen) 80 unit SUBQ QPM [facility] Last Admin: 01/15/21 20:52 Dose: 80 unit Documented by: Isosorbide Mononitrate (Isosorbide Mononitrate Er 30 Mg Tablet) 30 mg PO BID [facility] Last Admin: 01/16/21 09:07 Dose: 30 mg Documented by: Losartan Potassium (Losartan 50 Mg Tablet) 100 mg PO DAILY [facility] Last Admin: 01/16/21 09:08 Dose: 100 mg Documented by: Nystatin (Nystatin Cream 15 Gm Tube) 1 applic TOP BID [facility] Last Admin: 01/16/21 09:13 Dose: 1 applic Documented by: Ondansetron HCl (Ondansetron Odt 4 Mg Tablet) 4 mg TL Q6HR PRN PRN Reason: Nausea / Vomiting Ondansetron HCl (Ondansetron 4 Mg/2 Ml Vial) 4 mg IVP Q6HR PRN PRN Reason: Nausea / Vomiting Oxycodone HCl (Oxycodone 5 Mg Tablet) 5 mg PO Q4HR PRN PRN Reason: Pain 5 to 7 Saccharomyces Boulardii (Saccharomyces Boulardii 250 Mg Capsule) 250 mg PO BIDWM [facility] Last Admin: 01/16/21 09:07 Dose: 250 mg Documented by: Sodium Chloride (Sodium Chloride Flush 0.9% 10 Ml Syringe) 10 ml IVP 0100,0900,1700 [facility] Last Admin: 01/16/21 07:01 Dose: 10 ml Documented by: Sodium Chloride (Sodium Chloride Flush 0.9% 10 Ml Syringe) 10 ml IVP PRN PRN PRN Reason: NEEDED PER PROVIDER ORDERS Last Admin: 01/14/21 13:26 Dose: 10 ml Documented by: Tamsulosin HCl (Tamsulosin 0.4 Mg Capsule) 0.4 mg PO DAILY [facility] Last Admin: 01/16/21 09:09 Dose: 0.4 mg Documented by: Aspirin [Aspir 81] 81 mg PO 02/26/14 Atorvastatin Calcium [Lipitor] 80 mg PO 02/26/14 Insulin Glargine,Hum.rec.anlog [Lantus] 100 unit SQ 02/26/14 Losartan [Cozaar] 100 mg PO DAILY 02/26/14 Glipizide 10 mg PO BIDAC 12/31/20 Metformin HCl [Fortamet] 1,000 mg PO BID 12/31/20 Tamsulosin [Flomax] 0.4 mg PO BID 12/31/20 Amlodipine Besylate [Norvasc] 10 mg PO DAILY 01/12/21 Furosemide [Lasix] 80 mg PO DAILY 01/12/21 Insulin Aspart [NovoLOG] 10 units SQ TIDWM 01/12/21 Isosorbide Mononitrate [Isosorbide Mononitrate ER] 30 mg PO BID 01/12/21 Objective - Vital Signs/Intake & Output Reviewed Vital Signs: Yes Vital Signs: Vital Signs x48h Temp Pulse Pulse Resp BP Pulse Ox 01/16/21 08:18 80 01/16/21 08:00 90 21 143/68 H 95 01/16/21 07:15 93 24 128/51 L 93 01/16/21 04:00 36.8 C 74 20 108/40 L 82 L Intake & Output: Intake & Output 01/13/21 01/14/21 01/15/21 01/16/21 23:59 23:59 23:59 23:59 Intake Total 2310 1880 2800 1120 Output Total 5129 8297 57 1585 Balance -2815 -3680 -2930 -465 - Objective General Appearance: positive: No acute distress, Alert Eyes Bilateral: positive: Normal inspection, Conjunctivae nml ENT: positive: ENT inspection nml Neck: positive: Nml inspection Respiratory: positive: No respiratory distress, Other (Diminished bilaterally.). negative: Wheezes, Rales Cardiovascular: positive: Regular rate & rhythm, No murmur. negative: Tachycardia Abdomen: positive: Non-tender, No distention. negative: Tenderness Skin: positive: Warm, Dry, Other (Chronic mild erythema over bilateral lower extremities with dermatitis present.) Extremities: positive: Pedal edema (+2 pitting edema in the bilateral lower extremities. Slowly improving.) Neurologic/Psychiatric: negative: Disoriented to person, Disoriented to place - Lab Results Fish Bones: 01/16/21 04:43 01/16/21 04:43 Other Labs: Lab Results x24hrs 01/16/21 01/16/21 01/16/21 Range/Units 07:53 04:43 04:43 WBC 7.0 (4.8-10.8) x10^3/uL RBC 4.79 (4.70-6.10) 10^6/uL Hgb 13.0 L (14.0-18.0) g/dL Hct 44.7 (42.0-52.0) % MCV 93.3 (80.0-94.0) fL MCH 27.1 (27.0-31.0) pg MCHC 29.1 L (32.0-36.0) g/dL RDW 15.9 H (12.0-15.0) % Plt Count 173 (130-450) 10^3/uL MPV 9.4 (7.4-11.4) fL Neut # (Auto) 5.0 (1.5-6.6) 10^3/uL Lymph # (Auto) 1.4 L (1.5-3.5) 10^3/uL Long # (Auto) 0.5 (0.0-1.0) 10^3/uL Eos # (Auto) 0.2 (0.0-0.7) 10^3/uL Baso # (Auto) 0.0 (0.0-0.1) 10^3/uL Absolute Nucleated RBC 0.00 x10^3/uL Nucleated RBC % 0.0 /100WBC Sodium 140 (135-145) mmol/L Potassium 4.6 (3.5-5.0) mmol/L Chloride 90 L (101-111) mmol/L Carbon Dioxide 39 H* (21-32) mmol/L Anion Gap 11.0 (6-13) BUN 21 H (6-20) mg/dL Creatinine 1.1 (0.6-1.2) mg/dL Estimated GFR (MDRD) 67 L (>89) Glucose 142 H (70-100) mg/dL POC Whole Bld Glucose 115 H (70 - 100) mg/dL Calcium 9.2 (8.5-10.3) mg/dL 01/15/21 01/15/21 01/15/21 Range/Units 20:43 16:53 11:38 WBC (4.8-10.8) x10^3/uL RBC (4.70-6.10) 10^6/uL Hgb (14.0-18.0) g/dL Hct (42.0-52.0) % MCV (80.0-94.0) fL MCH (27.0-31.0) pg MCHC (32.0-36.0) g/dL RDW (12.0-15.0) % Plt Count (130-450) 10^3/uL MPV (7.4-11.4) fL Neut # (Auto) (1.5-6.6) 10^3/uL Lymph # (Auto) (1.5-3.5) 10^3/uL Long # (Auto) (0.0-1.0) 10^3/uL Eos # (Auto) (0.0-0.7) 10^3/uL Baso # (Auto) (0.0-0.1) 10^3/uL Absolute Nucleated RBC x10^3/uL Nucleated RBC % /100WBC Sodium (135-145) mmol/L Potassium (3.5-5.0) mmol/L Chloride (101-111) mmol/L Carbon Dioxide (21-32) mmol/L Anion Gap (6-13) BUN (6-20) mg/dL Creatinine (0.6-1.2) mg/dL Estimated GFR (MDRD) (>89) Glucose (70-100) mg/dL POC Whole Bld Glucose 236 H 178 H 204 H (70 - 100) mg/dL Calcium (8.5-10.3) mg/dL Assessment/Plan - Problem List (1) Acute on chronic respiratory failure with hypoxia and hypercapnia Impression: Continues to oxygenate well on 2 L of oxygen which is his baseline. His acute hypercapnic respiratory failure has resolved after being treated with BiPAP initially. We did trial his home CPAP again last night but once again he had multiple apneic episodes and he was placed back on our V30 auto titrate CPAP. At this point in time, he is not a safe discharge home given his apneic episodes on his home CPAP and he presented with hypercapnic respiratory failure. He has been accepted at [facility] for pulmonology evaluation and to set up BiPAP/trilogy through the [facility] but unfortunate there are still no beds available. We are hoping a bed will be available tomorrow and he will be transferred there for further care. We will continue him on her own CPAP machine at night and will use BiPAP if needed. (2) Second degree AV block Impression: This appears to have been a type I as there was slight progression of the AZ interval before there was one nonconducting P wave. This lasted briefly this morning and since then, he has been in a sinus rhythm with a first-degree AV block. EKG obtained this morning confirms a sinus rhythm with a prolonged AZ interval of [address] segment changes. At this time, we will keep him on telemetry while he is hospitalized waiting for transfer to the [facility]. We will hold off on any AV samy blocking agents. We will check a TSH. (3) Obesity hypoventilation syndrome Impression: This was the cause of his acute on chronic hypercapnic respiratory failure. He has been doing well since treated with BiPAP initially. (4) Bilateral lower extremity edema Impression: This continues to improve although he still has significant edema. Duplex was negative for DVT. Repeat x-ray showed no pulmonary vascular congestion and his echocardiogram did not suggest heart failure. He has been resumed on oral Lasix. (5) YONATAN on CPAP Impression: He did not do well last night when we trialed his home CPAP again. We will place him back on our own machine tonight and he is pending transfer to the [facility] for evaluation by pulmonology as he will need to be set up through an appropriate [facility]AP [facility]. (6) Controlled type 2 diabetes mellitus without complication, with long-term current use of insulin Impression: His blood glucose has been better controlled with no further episodes of hypoglycemia. We will increase his mealtime insulin to 8 units and continue with 80 units of Lantus. Carb controlled diet. (7) HTN (hypertension) Impression: His blood pressure is well controlled on losartan which we will continue. Qualifiers: Hypertension type: essential hypertension Qualified Code(s): I10 - Essential (primary) hypertension (8) Mild aortic stenosis Impression: this was evident on echocardiogram and will need to be followed up on outpatient basis. (9) Morbid obesity Impression: He was seen by nutrition and he is motivated to lose weight. He understands this is a major contributing factor to his obstructive sleep apnea. (10) Chronic venous stasis dermatitis of both lower extremities Impression: This is stable and chronic. We will continue with Lasix for diuresis and leg elevation. (11) CO2 narcosis Impression: This was the cause of his altered mental status on admission and has resolved.
[2021-01-16] MEDS: INSULIN GLARGINE 300 UNIT/3 ML PEN SUBQ SCH (20:53)
[2021-01-17 04:48] LABS: BASOPHILS % (AUTO) 0.3 %; EOSINOPHILS # (AUTO) 0.2 10^3/uL (0.0-0.7); EOSINOPHILS % (AUTO) 2.8 %; HCT - HEMATOCRIT 43.4 % (42.0-52.0); HGB - HEMOGLOBIN 12.3 g/dL (14.0-18.0); LYMPHOCYTES # (AUTO) 1.3 10^3/uL (1.5-3.5); LYMPHOCYTES % (AUTO) 17.4 %; MEAN CORPUSCULAR HEMOGLOBIN 26.6 pg (27.0-31.0); MEAN CORPUSCULAR HGB CONC 28.3 g/dL (32.0-36.0); MEAN CORPUSCULAR VOLUME 93.7 fL (80.0-94.0); MEAN PLATELET VOLUME 9.6 fL (7.4-11.4); MONOCYTES # (AUTO) 0.5 10^3/uL (0.0-1.0); MONOCYTES % (AUTO) 6.8 %; NEUTROPHILS # (AUTO) 5.2 10^3/uL (1.5-6.6); NEUTROPHILS % (AUTO) 72.3 %; PLT - PLATELET COUNT 186 10^3/uL (130-450); RED BLOOD COUNT 4.63 10^6/uL (4.70-6.10); WHITE BLOOD COUNT 7.2 x10^3/uL (4.8-10.8)
[2021-01-17 05:18] LABS: CALCIUM 8.9 mg/dL (8.5-10.3); CREATININE 0.9 mg/dL (0.6-1.2); MAGNESIUM 2.2 mg/dL (1.7-2.8); PHOSPHORUS 3.7 mg/dL (2.5-4.6); POTASSIUM 4.5 mmol/L (3.5-5.0)
[2021-01-17] MEDS: INSULIN ASPART 300 UNIT/3 ML PEN SUBQ SCH ×4 (08:27→11:56)
[2021-01-17] MEDS: SODIUM CHLORIDE FLUSH 0.9% 10 ML SYRINGE IVP SCH (08:28)
[2021-01-17] MEDS: CHLORHEXIDINE GLUCONATE 15 ML UDC PO SCH (08:30)
[2021-01-17] MEDS: NYSTATIN CREAM 15 GM TUBE TOP SCH (08:51)
[2021-01-17] MEDS: ENOXAPARIN 40 MG/0.4 ML SYRINGE SUBQ SCH (09:12)
[2021-01-17] MEDS: ISOSORBIDE MONONITRATE ER 30 MG TABLET PO SCH (09:12)
[2021-01-17] MEDS: TAMSULOSIN 0.4 MG CAPSULE PO SCH (09:12)
[2021-01-17] MEDS: SACCHAROMYCES BOULARDII 250 MG CAPSULE PO SCH (09:12)
[2021-01-17] MEDS: ASPIRIN EC 81 MG TABLET PO SCH (09:12)
[2021-01-17] MEDS: LOSARTAN 50 MG TABLET PO SCH (09:12)
[2021-01-17] MEDS: ATORVASTATIN 40 MG TABLET PO SCH (09:12)
[2021-01-17] MEDS: FUROSEMIDE 40 MG TABLET PO SCH (09:12)
[2021-01-17 12:26] LABS: B. PARAPERTUSSIS- RESP PCR PAN NOT DETECTED; B. PERTUSSIS- RESP PCR PANEL NOT DETECTED; C. PNEUMONIAE- RESP PCR PANEL NOT DETECTED; CORONAVIRUS 229E-RESP PCR NOT DETECTED; CORONAVIRUS HKU1-RESP PCR NOT DETECTED; CORONAVIRUS NL63-RESP PCR NOT DETECTED; CORONAVIRUS OC43-RESP PCR NOT DETECTED; HUMAN METAPNEUMOVIRUS NOT DETECTED; INFLUENZA A- RESP PCR PANEL NOT DETECTED; INFLUENZA B - RESP PCR PANEL NOT DETECTED; M. PNEUMONIAE- RESP PCR PANEL NOT DETECTED; PARAINFLUENZA VIRUS 1 NOT DETECTED; PARAINFLUENZA VIRUS 2 NOT DETECTED; PARAINFLUENZA VIRUS 3 NOT DETECTED; PARAINFLUENZA VIRUS 4 NOT DETECTED; RHINOVIRUS/ENTEROVIRUS NOT DETECTED; RSV- RESP PCR PANEL NOT DETECTED; SARS-CoV-2 -RESP PCR PANEL NOT DETECTED
[2021-01-17 14:42] VITALS: BP 120/49
== END 2021-01-17 15:14 | disposition short-term general hospital (02) | DRG 189 ==
LOC: EDUNIT# → ED 20:39 → SUPCPDRO 20:39 → ICU 23:40
PROVIDERS: ADMIT Specialist; ATTEND Internal Medicine
DX: J44.9 Chronic obstructive pulmonary disease, unspecified (principal); E11.10 Type 2 diabetes mellitus with ketoacidosis without coma; R41.82 Altered mental status, unspecified; J96.22 Acute and chronic respiratory failure with hypercapnia; G93.41 Metabolic encephalopathy; E66.2 Morbid (severe) obesity with alveolar hypoventilation; G47.33 Obstructive sleep apnea (adult) (pediatric); Z68.42 Body mass index [BMI] 45.0-49.9, adult; J81.1 Chronic pulmonary edema; J90 Pleural effusion, not elsewhere classified; E87.0 Hyperosmolality and hypernatremia; J96.21 Acute and chronic respiratory failure with hypoxia; Z99.81 Dependence on supplemental oxygen; I44.1 Atrioventricular block, second degree; E11.9 Type 2 diabetes mellitus without complications; I10 Essential (primary) hypertension; I35.0 Nonrheumatic aortic (valve) stenosis; I87.8 Other specified disorders of veins; T38.3X6A Underdosing of insulin and oral hypoglycemic [antidiabetic] drugs, initial encounter; N40.1 Benign prostatic hyperplasia with lower urinary tract symptoms; R35.0 Frequency of micturition; R91.8 Other nonspecific abnormal finding of lung field; Z79.4 Long term (current) use of insulin; Z96.41 Presence of insulin pump (external) (internal); H10.503 Unspecified blepharoconjunctivitis, bilateral; Z20.822 Contact with and (suspected) exposure to COVID-19
CPT/HCPCS: 36415; 36600; 70450; 71045; 80048; 80053; 81001; 82803; 83036; 83690; 83735; 83880; 84100; 84443; 85025; 87040; 87150; 87631; 93005; 93306; 93970; 94640; 94660; 96374; 97116; 97162; 97530; 99285; A9270; J1650; J1815; 0202U; 81003; 87086

== ENCOUNTER 2021-08-09 14:37 | Outpatient (CLI) | payer OTHER | END 2021-08-09 14:38 | disposition EMS.NT | LOC: EMS 14:37 | DX: Z03.89 Encounter for observation for other suspected diseases and conditions ruled out (principal) ==

== ENCOUNTER 2021-08-12 07:49 | Outpatient (CLI) | payer OTHER | END 2021-08-12 07:50 | disposition critical access hospital (66) | LOC: EMS 07:49 | DX: R53.1 Weakness (principal) | CPT/HCPCS: A0425; A0429 ==

== ENCOUNTER 2021-08-12 08:19 | Inpatient (IN) | payer OTHER ==
--- NOTE | 2021-08-12 08:30 | ED Physician Documentation ---
PD HPI DYSPNEA - Stated complaint Stated Complaint: GLF/WEAKNESS - History obtained from History obtained from: Patient, EMS - Additional information Additional information: This is a 66-year-old gentleman with history of type 2 diabetes, obesity hypoventilation syndrome, obstructive sleep apnea and mild aortic stenosis who presents by ambulance. He states that he sat in his couch for about 7 hours and when he tried to get up he slid to the floor and lacked the strength to get up. There was no injury. He feels generally weak. He states that he does feel more short of breath than usual, but denies a cough. He also has more pedal edema than usual. States that he has been immunized against Covid. He wears 4 L of oxygen at home, he is not sure why, his response to the question of why he wears oxygen is "light breathing." Review of Systems Ten Systems: 10 systems reviewed and negative Constitutional: reports: Fatigue Cardiac: denies: Chest pain / pressure, Palpitations Respiratory: reports: Dyspnea. denies: Cough GI: denies: Abdominal Pain PD PAST MEDICAL HISTORY - Past Medical History Cardiovascular: Hypertension, High cholesterol Respiratory: Sleep apnea, CPAP use Endocrine/Autoimmune: Type 2 diabetes GI: Hiatal hernia, Other (Umbilical hernia times years) : Benign prostate hypertrophy, Frequency HEENT: None Musculoskeletal: Osteoarthritis, Chronic back pain Derm: Other - Past Surgical History Past Surgical History: Yes General: Hiatal hernia repair - Present Medications Home Medications: Ambulatory Orders Medication Instructions Recorded Confirmed Aspirin [Aspir 81] 81 mg PO HS 02/26/14 01/12/21 Atorvastatin Calcium [Lipitor] 80 mg PO HS 02/26/14 01/12/21 Insulin Glargine,Hum.rec.anlog 100 unit SQ HS 02/26/14 01/12/21 [Lantus] Losartan [Cozaar] 100 mg PO DAILY 02/26/14 01/12/21 Metformin HCl [Fortamet] 1,000 mg PO BID 12/31/20 01/12/21 Tamsulosin [Flomax] 0.4 mg PO BID 12/31/20 01/12/21 glipiZIDE [Glipizide] 10 mg PO BIDAC 12/31/20 01/12/21 Amlodipine Besylate [Norvasc] 10 mg PO DAILY 01/12/21 01/12/21 Furosemide [Lasix] 80 mg PO DAILY 01/12/21 01/12/21 Insulin Aspart [NovoLOG] 10 units SQ TIDWM 01/12/21 01/12/21 Isosorbide Mononitrate [Isosorbide 30 mg PO BID 01/12/21 01/12/21 Mononitrate ER] - Allergies Allergies/Adverse Reactions: Allergies Allergy/AdvReac Type Severity Reaction Status Date / Time No Known Drug Allergies Allergy Verified 08/12/21 08:33 - Social History Does the pt smoke?: No Smoking Status: Never smoker Does the pt drink ETOH?: Yes Does the pt have substance abuse?: No - Immunizations Immunizations are current?: Yes - POLST Patient has POLST: No POLST Status: Full Code PD ED PE NORMAL - Vitals Vital signs reviewed: Yes - General General: Alert and oriented X 3, No acute distress - HEENT HEENT: PERRL, EOMI - Neck Neck: Supple, no meningeal sign, No bony TTP - Cardiac Cardiac: RRR, Other (3 out of 6 to 4 out of 6 holosystolic decrescendo murmur heard best at the upper sternal borders) - Respiratory Respiratory: No respiratory distress, Other (Diminished at both bases, limited by body habitus) - Abdomen Abdomen: Non tender - Back Back: No CVA TTP, No spinal TTP - Derm Derm: Normal color, Warm and dry - Extremities Extremities: Other (Bilateral pitting pedal edema with venous stasis changes) - Neuro Neuro: Alert and oriented X 3, Normal speech - Psych Psych: Normal mood, Normal affect Results - Vitals Vitals: Vital Signs - 24 hr 08/12/21 08/12/21 08:28 08:54 Temperature 36.7 C 36.6 C Heart Rate 91 92 Respiratory 26 H 18 Rate Blood Pressure 157/75 H 156/82 H O2 Saturation 97 96 Oxygen O2 Source Nasal cannula Oxygen Flow Rate 4 - EKG (time done) 0842 Rate: Rate (enter#) (92) Rhythm: NSR Cashion: Normal Intervals: Prolonged NV QRS: Low voltage Ischemia: Non specific changes. No: ST elevation c/w ischemia, ST depression Computer interpretation: Agree with computer - Labs Labs: Laboratory Tests 08/12/21 08/12/21 08/12/21 08:40 08:40 08:40 WBC 10.5 RBC 6.04 Hgb 14.5 Hct 54.0 H MCV 89.4 MCH 24.0 L MCHC 26.9 L RDW 17.5 H Plt Count 251 MPV 9.5 Neut # (Auto) 8.6 H Lymph # (Auto) 0.9 L [place] # (Auto) 0.7 Eos # (Auto) 0.1 Baso # (Auto) 0.0 Absolute Nucleated RBC 0.00 Nucleated RBC % 0.0 VBG pH VBG pCO2 VBG pO2 VBG HCO3 VBG Total CO2 VBG O2 Saturation VBG Base Excess Sodium 145 Potassium 4.8 Chloride 98 L Carbon Dioxide 38 H Anion Gap 9.0 BUN 25 H Creatinine 0.9 Estimated GFR (MDRD) 84 L Glucose 123 H Calcium 9.0 Total Bilirubin 0.6 AST 14 ALT 15 Alkaline Phosphatase 119 Troponin I High Sens 27.9 H* B-Natriuretic Peptide Total Protein 7.2 Albumin 3.2 Globulin 4.0 Albumin/Globulin Ratio 0.8 L Lipase 30 Nasal Adenovirus (PCR) Nasal B. parapertussis DNA (PCR) Nasal Coronavir 229E PCR Nasal Coronavir HKU1 PCR Nasal Coronavir NL63 PCR Nasal Coronavir OC43 PCR Nasal Enterovir/Rhinovir PCR Nasal Influenza B PCR Nasal Influenza A PCR Nasal Parainfluen 1 PCR Nasal Parainfluen 2 PCR Nasal Parainfluen 3 PCR Nasal Parainfluen 4 PCR Nasal RSV (PCR) Nasal B.pertussis DNA PCR Nasal C.pneumoniae (PCR) Armando Human Metapneumo PCR Nasal M.pneumoniae (PCR) Nasal SARS-CoV-2 (PCR) 08/12/21 08/12/21 08/12/21 08:40 08:40 08:40 WBC RBC Hgb Hct MCV MCH MCHC RDW Plt Count MPV Neut # (Auto) Lymph # (Auto) [place] # (Auto) Eos # (Auto) Baso # (Auto) Absolute Nucleated RBC Nucleated RBC % VBG pH 7.263 L VBG pCO2 71.9 H VBG pO2 64.9 H VBG HCO3 31.8 H VBG Total CO2 34.0 H VBG O2 Saturation 91.0 H VBG Base Excess 2.2 H Sodium Potassium Chloride Carbon Dioxide Anion Gap BUN Creatinine Estimated GFR (MDRD) Glucose Calcium Total Bilirubin AST ALT Alkaline Phosphatase Troponin I High Sens B-Natriuretic Peptide 161 H Total Protein Albumin Globulin Albumin/Globulin Ratio Lipase Nasal Adenovirus (PCR) NOT DETECTED Nasal B. parapertussis DNA (PCR) NOT DETECTED Nasal Coronavir 229E PCR NOT DETECTED Nasal Coronavir HKU1 PCR NOT DETECTED Nasal Coronavir NL63 PCR NOT DETECTED Nasal Coronavir OC43 PCR NOT DETECTED Nasal Enterovir/Rhinovir PCR NOT DETECTED Nasal Influenza B PCR NOT DETECTED Nasal Influenza A PCR NOT DETECTED Nasal Parainfluen 1 PCR NOT DETECTED Nasal Parainfluen 2 PCR NOT DETECTED Nasal Parainfluen 3 PCR NOT DETECTED Nasal Parainfluen 4 PCR NOT DETECTED Nasal RSV (PCR) NOT DETECTED Nasal B.pertussis DNA PCR NOT DETECTED Nasal C.pneumoniae (PCR) NOT DETECTED Armando Human Metapneumo PCR NOT DETECTED Nasal M.pneumoniae (PCR) NOT DETECTED Nasal SARS-CoV-2 (PCR) NOT DETECTED PD MEDICAL DECISION MAKING - ED course ED course: [facility] okayed [facility] here. 66-year-old gentleman who presents with generalized weakness, on work-up found to have probably an acute on chronic respiratory failure with acidosis and hypercarbia. He probably has some level of CO2 retention at baseline but the significant acidosis suggest that this is acute. Modest evidence of may be CHF, that said his BNP is only 160. His troponin flags is elevated, that said he has no ischemic chest pain or ischemic findings on EKG so presume this is not due to ACS. Spoke with Dr. French for admission at 10:30 AM. Called into the room at 11:20 AM. Patient is less responsive. He does arouse to stimulus though. Presumed increased hypercarbia. Will repeat blood gas. Blood sugar 121. Venous gas has significant more hypercarbia, having gone from 71-1 02 and an increase in acidosis from 7.26 down to 7.17. We tried repositioning him and he actually tolerated an oral airway. Dr. French was updated and we will change the orders to the ICU and start BiPAP here. - Critical Care Time(min): 40 Time Includes: Direct patient care, Review records, Reassess patient, Document care, Coordinate care, Medical consult, Family consult for tx dec Data interpretation: Labs, Pulse ox Procedures included in critical care time: Peripheral IV Procedures excluded from critical care time: EKG Departure - Departure Disposition: 66 [facility] DC/Xfer Clinical Impression: Chronic venous stasis dermatitis of both lower extremities, Acute on chronic respiratory failure with hypoxia and hypercapnia, Obesity hypoventilation syndrome, YONATAN on CPAP, Mild aortic stenosis Condition: Serious
[2021-08-12 08:52] LABS: BASOPHILS % (AUTO) 0.4 %; EOSINOPHILS # (AUTO) 0.1 10^3/uL (0.0-0.7); EOSINOPHILS % (AUTO) 1.2 %; HGB - HEMOGLOBIN 14.5 g/dL (14.0-18.0); LYMPHOCYTES # (AUTO) 0.9 10^3/uL (1.5-3.5); MEAN CORPUSCULAR HGB CONC 26.9 g/dL (32.0-36.0); MEAN CORPUSCULAR VOLUME 89.4 fL (80.0-94.0); MEAN PLATELET VOLUME 9.5 fL (7.4-11.4); MONOCYTES # (AUTO) 0.7 10^3/uL (0.0-1.0); MONOCYTES % (AUTO) 6.9 %; NEUTROPHILS # (AUTO) 8.6 10^3/uL (1.5-6.6); NEUTROPHILS % (AUTO) 81.8 %; PLT - PLATELET COUNT 251 10^3/uL (130-450); RED BLOOD COUNT 6.04 10^6/uL (4.70-6.10); RED CELL DISTRIBUTION WIDTH 17.5 % (12.0-15.0); WHITE BLOOD COUNT 10.5 x10^3/uL (4.8-10.8)
[2021-08-12 09:01] LABS: VBG BASE EXCESS 2.2 mmol/L (-2 - +2); VBG HCO3 31.8 mmol/L (23-28); VBG PCO2 71.9 mmHg (41-51); VBG PH 7.263 (7.31-7.41)
[2021-08-12 09:02] LABS: VBG PO2 64.9 mmHg (25-47)
--- NOTE | 2021-08-12 09:03 | XRAY Report ---
PROCEDURE: Chest 1 View X-Ray INDICATIONS: dyspnea, weakness TECHNIQUE: One view of the chest was acquired. COMPARISON: 01/15/2021 FINDINGS: Surgical changes and devices: None. Lungs and pleura: No pleural effusions or pneumothorax. Mild pulmonary vascular congestion is seen. No definite focal infiltrate. Mediastinum: Mediastinal contours appear normal. Heart size is enlarged. Bones and chest wall: No suspicious bony lesions. Overlying soft tissues appear unremarkable. IMPRESSION: Cardiomegaly and mild pulmonary vascular congestion and is concerning for CHF. No focal infiltrate, p leural effusion or pneumothorax. Reviewed by: Gumaro Valladares MD on 08/12/2021 9:02 AM PDT Approved by: Gumaro Valladares MD on 08/12/2021 9:02 AM PDT Station ID: [id number]
[2021-08-12 09:13] LABS: ALBUMIN 3.2 g/dL (3.2-5.5); ALBUMIN/GLOBULIN RATIO 0.8 (1.0-2.2); BILIRUBIN,TOTAL 0.6 mg/dL (0.2-1.0); CREATININE 0.9 mg/dL (0.6-1.2); POTASSIUM 4.8 mmol/L (3.5-5.0); TOTAL PROTEIN 7.2 g/dL (6.7-8.2)
[2021-08-12 09:38] LABS: B. PARAPERTUSSIS- RESP PCR PAN NOT DETECTED; B. PERTUSSIS- RESP PCR PANEL NOT DETECTED; C. PNEUMONIAE- RESP PCR PANEL NOT DETECTED; CORONAVIRUS 229E-RESP PCR NOT DETECTED; CORONAVIRUS HKU1-RESP PCR NOT DETECTED; CORONAVIRUS NL63-RESP PCR NOT DETECTED; CORONAVIRUS OC43-RESP PCR NOT DETECTED; HUMAN METAPNEUMOVIRUS NOT DETECTED; INFLUENZA A- RESP PCR PANEL NOT DETECTED; INFLUENZA B - RESP PCR PANEL NOT DETECTED; M. PNEUMONIAE- RESP PCR PANEL NOT DETECTED; PARAINFLUENZA VIRUS 1 NOT DETECTED; PARAINFLUENZA VIRUS 2 NOT DETECTED; PARAINFLUENZA VIRUS 3 NOT DETECTED; PARAINFLUENZA VIRUS 4 NOT DETECTED; RHINOVIRUS/ENTEROVIRUS NOT DETECTED; RSV- RESP PCR PANEL NOT DETECTED; SARS-CoV-2 -RESP PCR PANEL NOT DETECTED
[2021-08-12] MEDS ORDERED: ONDANSETRON 4 MG/2 ML VIAL IVP PRN (10:28)
[2021-08-12] MEDS ORDERED: ONDANSETRON ODT 4 MG TABLET TL PRN (10:28)
[2021-08-12 11:27] LABS: VBG BASE EXCESS 3.6 mmol/L (-2 - +2); VBG HCO3 36.4 mmol/L (23-28); VBG PCO2 102.1 mmHg (41-51); VBG PH 7.17 (7.31-7.41); VBG PO2 85.8 mmHg (25-47); VBG TOTAL CO2 39.5 mmol/L (24-29)
[2021-08-12 11:28] LABS: VBG OXYGEN SATURATION 95.4 % (60-80)
[2021-08-12] MEDS ORDERED: ENOXAPARIN 40 MG/0.4 ML SYRINGE SUBQ SCH (12:00)
[2021-08-12] MEDS ORDERED: LACTATED RINGERS 1,000 ML IV SCH (12:00)
--- NOTE | 2021-08-12 15:21 | PHARMACY PROGRESS NOTE ---
- Best Possible Medication History Admit Date and Time: 08/12/21 1028 Processed by: Pharmacy Medication History completed: Yes Patient Interview: Completed Secondary Source(s): Pharmacy records, Insurance records As the person ultimately responsible for medication therapy, providers are able to order a medication from an existing home medication list in [facility] via the "Reconcile Routine" prior to Confirmation of that medication by business support manager. Such practice is discouraged except when the physician, in their clinical judgment, deems that a medical need exists for a medication without regard to previous use.
--- NOTE | 2021-08-12 17:30 | HISTORY & PHYSICAL EXAMINATION ---
Chief Complaint - Chief Complaint Chief Complaint: weakness and unable to walk History of Present Illness - Admitted From Admitted From:: Home via EMS - History Obtained From Records Reviewed: [facility] History obtained from: Dr. Zuluaga Exam Limitations: obtunded, on Bipap - History of Present Illness HPI Comment/Other: Morbidly obese male who I met in December 2020 when I admitted him for hypercapnia causing severe metabolic encephalopathy in association with acute respiratory failure with hypoxia and hypercapnia. He does not smoke. Never did. He is supposed to be on a CPAP machine but is noncompliant. He was treated with BiPAP at that admission. Started empiric antibiotic therapy for possible community- acquired pneumonia. But that was discontinued after 24 hours. Echo showed preserved ejection fraction, no diastolic dysfunction, no pulmonary hypertension. Venous Dopplers negative for DVT. He was placed on BiPAP with good resolution of hypoxia and hypercapnea. He needed outpatient follow-up to get his own CPAP machine and we knew he would not do well once discharged and [facility]. [facility]. Also on 4 liters of 02. A walker. A life alert button. He has not been using any of it according to his son/POA. Last time son saw him was SundayAugust 08. Son and son's spent 8 hours cleaning house. His dad is not cleaning up dishes, food, clothes up and hasn't take care of himself. No garbage out for months and rats found. On Sunday he was alert, complaining of being drained of energy for months. Can't get around. Son was picking up food for him. Son filed report w APS for self neglect and told Dad he was doing it. Out of meds from [place] for a while. Dad was alert, just tired that day. Moving around with a walker. Today the son went to check on him and found him down. Old Cpap was hooked up and being used next to bed and his new BiPAP was shoved under the bed. The life alert was still in a still cleaner tube. Dad laid on the floor since midnight all night because he couldn't get to the phone or call for help until son found him this morning. With today's visit to the emergency room he was brought in by ambulance because when he tried to get up off the sofa he slid to the floor. His legs just could not hold him up. There is no antecedent fever, chest pain, sweats, rigors. There is no cough. No change in appetite. He had been sitting on the sofa for 7 hours. Cannot tell us why he sat there for 7 hours. He does describe having more leg swelling than usual. He does have home oxygen at 4 L. In the emergency room he was evaluated by Dr. Zuluaga and was afebrile, hypertensive at 157/75, heart rate 91, respiration 26. O2 sat 97%. He had a 3 out of 6 murmur. Lung sounds that were exceedingly quiet in this very large chest wall. Grossly pitting bilateral edema with chronic venous stasis changes. He was alert and oriented. He was presented to the hospitalist service as acute respiratory failure with hypercapnea and hypoxia based on blood gases. His troponins were negative. While he was awaiting admission in the emergency room he became quite somnolent, and unresponsive. His initial venous blood gas was 7.2/71/64. When he became somnolent repeat venous blood gas was 7.1/102/85. Started on BiPAP in the ER. As such admission orders were changed to reflect that he was being sent to the ICU on BiPAP. [facility]. Admission chest x-ray shows cardiomegaly and mild pulmonary vascular congestion concerning for CHF. His BNP is 161. Troponin #1 was 27.9 and troponin #2 was 27.4. EKG is sinus without acute ST-T wave changes. History - Past Medical History Cardiovascular: reports: Hypertension, High cholesterol Respiratory: reports: Sleep apnea, CPAP use Endocrine/Autoimmune: reports: Type 2 diabetes GI: reports: Hiatal hernia, Other (Umbilical hernia times years) : reports: Benign prostate hypertrophy, Frequency HEENT: reports: None Musculoskeletal: reports: Osteoarthritis, Chronic back pain Derm: reports: Other MRSA Hx?: No - Past Surgical History General: reports: Hiatal hernia repair - Family & Social History Family History Comment/Other: Both mom and dad were morbidly obese, both of lung cancer, or from [place]. 3 siblings. 2 sisters were owners of fast food restaurants and of complications of severe morbid obesity. 3 kids. All of them are overweight. But nobody is diabetic, hypertensive, or has had a heart attack or stroke or cancer. Living arrangement: At home Living Situation: Alone Social History Notes: From [place]. From there he went into the [employer]. When he retired from the [employer] he went back to [place], then to [place] and now here. He has been twice. both times. His second with an [employer] knee. Their marriage lasted 4 to 5 years before divorce. Has 3 children from his first marriage. Rarely drinks. No history of tobacco use. No history of recreational substance abuse. 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 DPOA is in PCP chart. His son Joce Ambriz at [phone]. #2 is Virgie Cruz at [phone]. He wants to be a full code. He use to get his care here up until 2013 and then he moved to [facility]. Moved back from [place] ~May 2020 ago and has not been able to get a PCP yet. Was supposed to meet up with Dr. Courtney. - Substance History Use: Uses substance without health or social issues: NONE - POLST Patient has POLST: No POLST Status: Full Code Meds/Allgy - Home Medications Home Medications: Ambulatory Orders Medication Instructions Recorded Confirmed Aspirin [Aspir 81] 81 mg PO HS 02/26/14 08/12/21 Atorvastatin Calcium [Lipitor] 80 mg PO DAILY 02/26/14 08/12/21 Insulin Glargine,Hum.rec.anlog 30 unit SUBQ BID 02/26/14 08/12/21 [Lantus] Metformin HCl [Fortamet] 1,000 mg PO BID 12/31/20 08/12/21 Tamsulosin [Flomax] 0.8 mg PO QPM 12/31/20 08/12/21 Insulin Aspart [NovoLOG] 4 units SUBQ TIDWM 01/12/21 08/12/21 Empagliflozin [Jardiance] 12.5 mg PO DAILY 08/12/21 08/12/21 Furosemide [Lasix] 40 mg PO DAILY 08/12/21 08/12/21 Losartan Potassium [Cozaar] 100 mg PO DAILY 08/12/21 08/12/21 Sertraline HCl 200 mg PO DAILY 08/12/21 08/12/21 - Allergies Allergies/Adverse Reactions: Allergies Allergy/AdvReac Type Severity Reaction Status Date / Time No Known Drug Allergies Allergy Verified 08/12/21 08:33 Review of Systems - Other Findings Other Findings: Pertinent questions that were done in the emergency room, unable to obtain further review of systems since the patient became obtunded. When I spoke to his son, he describes dad deteriorating for several years now. Noncompliant. He states that dad recognizes he needs help and wants help. Dad wants to [facility] a [facility] facility [facility]. But he does not have the energy or the skills to move through the [facility] system. You spend hours on the phone just trying to get through to somebody. Prior Level of Functionality: Ambulating in his apartment with a walker and a cane but that is about it. He cannot leave the house because of mobility pain, shortness of breath. Relies on his children to buy him groceries. Has not been cleaning or taking care of the house. He has not been taking baths. Spends most of his time sitting and watching TV. Exam - Vital Signs Reviewed Vital Signs: Yes Vital Signs: Vital Signs x48h Temp Pulse Pulse Resp BP BP Pulse Ox 08/12/21 17:00 73 72 23 132/66 H 100 08/12/21 16:00 74 20 146/99 H 100 08/12/21 15:10 82 08/12/21 15:00 81 21 161/77 H 100 08/12/21 13:50 87 08/12/21 13:40 93 16 96 08/12/21 13:38 37 C 94 20 166/83 H 95 08/12/21 13:00 99 20 167/82 H 95 08/12/21 12:40 99 22 172/83 H 96 08/12/21 12:01 87 20 136/57 H 97 08/12/21 11:40 87 08/12/21 11:38 89 15 152/63 H 97 08/12/21 11:21 88 14 147/65 H 93 08/12/21 11:20 91 25 H 151/79 H 89 L 08/12/21 11:00 96 24 165/58 H 96 08/12/21 10:33 95 19 172/62 H 96 - Physical Exam General Appearance: positive: Other (Did, severely obese white male who does not respond to sternal rub. BiPAP mask on in the ICU. Disheveled, bad body odor.) Eyes Bilateral: positive: PERRL (Sluggish), EOMI ENT: positive: Dry mucous membranes Neck: positive: Other (Very difficult to assess for JVD since he has a short thick neck). negative: Stiff neck Respiratory: positive: Other (Unlabored respiration on BiPAP. Lung sounds exceedingly quiet.). negative: Wheezes, Rales, Rhonchi Cardiovascular: positive: Regular rate & rhythm. negative: Gallop/S4, Friction rub Abdomen: positive: Non-tender, Nml bowel sounds, No distention, Other (He has diffuse redness along all of his hair follicles on his lower abdominal wall. Easily reducible umbilical hernia. Sil intertrigo that is dense and red in the groin, left worse than right. Severe scrotal edema with penis that is almost disappeared. Scrotal sac is red, hot. Full of fluid). negative: No organomegaly (Cannot assess for organomegaly due to severe, huge, obese pannus) Skin: positive: Other (Red, warm legs with yellow scaling skin over the anterior shins compatible with venous stasis dermatitis. Sil intertrigo of both groin areas.) Extremities: positive: Pedal edema Neurologic/Psychiatric: positive: Other (Unresponsive to pain or voice. On BiPAP.) Conclusion/Plan - Problem List (1) Acute on chronic respiratory failure with hypoxia and hypercapnia Conclusion/Plan: This unfortunate gentleman has obesity hypoventilation syndrome, and obstructive sleep apnea. [facility] him all the proper equipment but unfortunately he has been noncompliant. Unclear why. Son knows that dad wants help, and is gotten the appropriate help, but cannot seem to follow through. There is no substance abuse in the picture. Assessment/plan BiPAP in the ICU Empiric steroids Repeat blood gas once has been on BiPAP for a while to see if that will help No antibiotics at this time since chest x-ray is negative Check echocardiogram if he does not respond. (2) CO2 narcosis Conclusion/Plan: Probably present for weeks if not months. Acutely worsened in the ER. Hopefully with BiPAP, he will improve. (3) Chronic venous stasis dermatitis of both lower extremities Conclusion/Plan: We will have nursing staff or aides wash his legs with soap and water. Use Jon wrap compression since NAMAN hose and SCDs may not work on him. There is no fever, no elevated white cell count. As such I do not think this is cellulitis. (4) Mild aortic stenosis Conclusion/Plan: Repeat echocardiogram. Assess left ventricular function and aortic valve (5) YONATAN on CPAP Conclusion/Plan: This with obesity hypoventilation syndrome. BiPAP. Reassess. (6) Obesity hypoventilation syndrome Conclusion/Plan: This with obstructive sleep apnea. BiPAP. Reassess. (7) Controlled type 2 diabetes mellitus without complication, with long-term current use of insulin Conclusion/Plan: At home he is on short acting insulin, Lantus, and Metformin. On admission his random glucose was 123. Plan: Reduce Lantus from 30 units subcu twice daily to 15 units twice daily until he is eating. Sliding scale insulin every 6 hours. Check A1c. (8) Self neglect Conclusion/Plan: Son has already filed APS report. We will file APS report. I will also have social work start investigating if there are any opportunities through the [place] healthcare system such as long-term senior care or fdc facility for him. - Lab Results Lab results reviewed: Yes Fish Bones: 08/12/21 08:40 08/12/21 08:40 - Diagnostic Imaging Results Diagnostic Imaging Results: positive: Final report reviewed Core Measures - Anticipated LOS I expect patient to be DC'd or transferred within 96 hours.: Yes - DVT/VTE - Prophylaxis VTE/DVT Device ordered at admit?: Yes
[2021-08-12 18:32] LABS: ABG BASE EXCESS 0.5 mmol/L (-2.0-3.0); ABG PH 7.21 (7.35-7.45); ABG PO2 74 mmHg (80-100); ABG TCO2 33.4 MMOL/L (21.0-29.0)
[2021-08-12 18:33] LABS: ABG MODE OF VENTILATION SYNCHRONOUS/TIMES; ABG OXYGEN SATURATION 94 % (94-98); ALLEN TEST POSITIVE
[2021-08-12 18:36] LABS: ABG PCO2 79 mmHg (34-45)
[2021-08-12] MEDS: INSULIN REGULAR HUMAN 300 UNIT/3 ML VIAL SUBQ SCH (18:39)
[2021-08-12] MEDS: INSULIN GLARGINE 300 UNIT/3 ML PEN SUBQ SCH (18:40)
[2021-08-12] MEDS ORDERED: INSULIN GLARGINE 300 UNIT/3 ML PEN SUBQ SCH (21:00)
[2021-08-13] MEDS: INSULIN REGULAR HUMAN 300 UNIT/3 ML VIAL SUBQ SCH ×6 (01:21→23:25)
[2021-08-13] MEDS: oxyCODONE 5 MG TABLET PO PRN (05:28)
[2021-08-13 06:10] LABS: ABG BASE EXCESS 5.8 mmol/L (-2.0-3.0); ABG HCO3 35.7 mmol/L (22.0-26.0); ABG OXYGEN SATURATION 96 % (94-98); ABG PH 7.27 (7.35-7.45); ABG PO2 88 mmHg (80-100); ABG TCO2 38.1 MMOL/L (21.0-29.0); ALLEN TEST POSITIVE
[2021-08-13 06:11] LABS: ABG PCO2 79 mmHg (34-45)
[2021-08-13] MEDS: INSULIN GLARGINE 300 UNIT/3 ML PEN SUBQ SCH ×2 (06:21→19:00)
[2021-08-13] MEDS: FUROSEMIDE 40 MG TABLET PO SCH (10:13)
[2021-08-13] MEDS: ENOXAPARIN 40 MG/0.4 ML SYRINGE SUBQ SCH ×2 (10:14→20:27)
[2021-08-13] MEDS: TAMSULOSIN 0.4 MG CAPSULE PO SCH (10:14)
--- NOTE | 2021-08-13 14:51 | PROVIDER PROGRESS NOTE ---
Subjective - Prog Note Date Prog Note Date: 08/13/21 Prog Note Time: 14:49 - Subjective Pt reports feeling: Improved Subjective: He was able to come off BiPAP for an hour this morning. Is awake. Alert. Talking to the RN. Went back to sleep. Took off his BiPAP for breakfast and ate 100% of his meals. Still very lethargic, easily tachypneic. But improved. Yesterday when I admitted him he was obtunded, and this morning he is more lucid, and appropriate. Still having problems with getting urine output. He has urinary retention and numerous tries yesterday with a Menezes catheter insertion that were unsuccessful. Current Medications - Current Medications Current Medications: Active Medications Acetaminophen (Acetaminophen 325 Mg Tablet) 650 mg PO Q4HR PRN PRN Reason: Pain 1 to 4 Enoxaparin Sodium (Enoxaparin 40 Mg/0.4 Ml Syringe) 40 mg SUBQ BID [facility] Last Admin: 08/13/21 10:14 Dose: 40 mg Documented by: Furosemide (Furosemide 40 Mg Tablet) 40 mg PO DAILY [facility] Last Admin: 08/13/21 10:13 Dose: 40 mg Documented by: Insulin Glargine (Insulin Glargine 300 Unit/3 Ml Pen) 15 unit SUBQ 0600,1800 [facility] Last Admin: 08/13/21 06:21 Dose: 15 unit Documented by: Insulin Human Regular (Insulin Regular Human 300 Unit/3 Ml Vial) 1 - 5 unit SUBQ Q6HR [facility]; Protocol Last Admin: 08/13/21 12:09 Dose: 2 unit Documented by: Ondansetron HCl (Ondansetron Odt 4 Mg Tablet) 4 mg TL Q6HR PRN PRN Reason: Nausea / Vomiting Ondansetron HCl (Ondansetron 4 Mg/2 Ml Vial) 4 mg IVP Q6HR PRN PRN Reason: Nausea / Vomiting Oxycodone HCl (Oxycodone 5 Mg Tablet) 5 mg PO Q4HR PRN PRN Reason: Pain 5 to 7 Last Admin: 08/13/21 05:28 Dose: 5 mg Documented by: Sodium Chloride (Sodium Chloride Flush 0.9% 10 Ml Syringe) 10 ml IVP PRN PRN PRN Reason: NEEDED PER PROVIDER ORDERS Tamsulosin HCl (Tamsulosin 0.4 Mg Capsule) 0.4 mg PO DAILY [facility] Last Admin: 08/13/21 10:14 Dose: 0.4 mg Documented by: Aspirin [Aspir 81] 81 mg PO HS 02/26/14 Atorvastatin Calcium [Lipitor] 80 mg PO DAILY 02/26/14 Insulin Glargine,Hum.rec.anlog [Lantus] 30 unit SUBQ BID 02/26/14 Metformin HCl [Fortamet] 1,000 mg PO BID 12/31/20 Tamsulosin [Flomax] 0.8 mg PO QPM 12/31/20 Insulin Aspart [NovoLOG] 4 units SUBQ TIDWM 01/12/21 Empagliflozin [Jardiance] 12.5 mg PO DAILY 08/12/21 Furosemide [Lasix] 40 mg PO DAILY 08/12/21 Losartan Potassium [Cozaar] 100 mg PO DAILY 08/12/21 Sertraline HCl 200 mg PO DAILY 08/12/21 Objective - Vital Signs/Intake & Output Reviewed Vital Signs: Yes Vital Signs: Vital Signs x48h Temp Pulse Pulse Resp BP Pulse Ox 08/13/21 14:00 68 24 94 08/13/21 13:00 36.7 C 68 25 H 132/64 H 95 08/13/21 12:00 37.0 C 73 20 154/89 H 95 08/13/21 11:00 24 143/61 H 95 08/13/21 10:00 77 24 145/79 H 94 08/13/21 09:00 65 16 128/58 L 96 08/13/21 08:00 63 16 130/57 L 97 08/13/21 07:16 74 08/13/21 07:00 72 18 135/60 H 94 Intake & Output: Intake & Output 08/10/21 08/11/21 08/12/21 08/13/21 23:59 23:59 23:59 23:59 Intake Total 500 500 Output Total 400 500 Balance 100 0 - Objective General Appearance: positive: Other (Sleepy but awakens with my touch of shoulder morbidly obese white male with a BiPAP mask on. Difficult to converse but cannot yes or no appropriately) Eyes Bilateral: positive: PERRL, EOMI ENT: positive: No signs of dehydration Neck: positive: Other (Very short, thick neck unable to assess for JVD. But neck is supple) Respiratory: positive: No respiratory distress, Other (Tubular breath sounds in the upper lung cordova that are more I think from the BiPAP mask in his upper trachea and his lung sounds are very, very, very quiet.). negative: Wheezes, Rales, Rhonchi Cardiovascular: positive: Regular rate & rhythm. negative: Gallop/S4, Friction rub Abdomen: positive: Other (He usually obese abdominal pannus, the redness and follicular changes along each hair shaft have improved. Still has redness and probable Sil of the intertriginous folds. An enlarged fluid-filled scrotal sac. Uncircumcised penis that has disappeared into his abdominal pannus and scrotal sac.) Skin: positive: Warm, Dry, Other (Chronic venous stasis dermatitis of both lower extremities with dense redness, heat, scaling yellow skin. At this time no oozing or ulcers.) Extremities: positive: Full ROM, Pedal edema Neurologic/Psychiatric: positive: CN's nml (2-12), Motor nml, Disoriented to place (It took him a while to realize that he was in the hospital. But he is needing less and less prompting now.), Disoriented to time - Lab Results Fish Bones: 08/13/21 14:53 08/13/21 14:53 Other Labs: Lab Results x24hrs 08/13/21 08/12/21 08/12/21 Range/Units 06:00 18:15 14:00 Bld Gas Analysis Time 0610 1831 Sample Site LEFT RADIAL LEFT RADIAL ABG pH 7.27 L 7.21 L (7.35-7.45) ABG pCO2 79 H* 79 H* (34-45) mmHg ABG pO2 88 74 L (80-100) mmHg ABG HCO3 35.7 H 31.0 H (22.0-26.0) mmol/L ABG Total CO2 38.1 H 33.4 H (21.0-29.0) MMOL/L ABG O2 Saturation 96 94 (94-98) % ABG Base Excess 5.8 H 0.5 (-2.0-3.0) mmol/L Reynaldo Test POSITIVE POSITIVE O2 Delivery Device NASAL CANNULA BiPAP Vent Mode SYNCHRONOUS/TIMES FiO2 4.00 Pressure Support Vent 3 cmH2O EPAP 8 cmH2O IPAP 16 cmH2O Troponin I High Sens (2.3-19.7) ng/L Nasal Screen MRSA (PCR) NEGATIVE (NEGATIVE) 08/12/21 Range/Units 11:22 Bld Gas Analysis Time Sample Site ABG pH (7.35-7.45) ABG pCO2 (34-45) mmHg ABG pO2 (80-100) mmHg ABG HCO3 (22.0-26.0) mmol/L ABG Total CO2 (21.0-29.0) MMOL/L ABG O2 Saturation (94-98) % ABG Base Excess (-2.0-3.0) mmol/L Reynaldo Test O2 Delivery Device Vent Mode FiO2 Pressure Support Vent cmH2O EPAP cmH2O IPAP cmH2O Troponin I High Sens 27.4 H* (2.3-19.7) ng/L Nasal Screen MRSA (PCR) (NEGATIVE) Assessment/Plan - Problem List (1) Acute on chronic respiratory failure with hypoxia and hypercapnia Impression: This unfortunate gentleman has obesity hypoventilation syndrome, and obstructive sleep apnea. [facility] the proper equipment but unfortunately he has been noncompliant. Unclear why. Son knows that dad wants help, and is gotten the appropriate help, but cannot seem to follow through. There is no substance abuse in the picture. Assessment/plan BiPAP in the ICU to continue until he is at baseline orientation and ambulation Empiric steroids Blood gas shows C02 is going down No antibiotics at this time since chest x-ray is negative No echocardiogram since he is responding We [facility] but no beds. (2) CO2 narcosis Conclusion/Plan: Probably present for weeks if not months. Acutely worsened in the ER. Hopefully with BiPAP, he will improve. (3) Chronic venous stasis dermatitis of both lower extremities Conclusion/Plan: Nursing staff or aides washed his legs with soap and water. Jon wrap compression is being used since NAMAN hose and SCDs may not work on him. They are much less edematous today than yesterday. There is no fever, no elevated white cell count. As such I do not think this is cellulitis. (4) Mild aortic stenosis Conclusion/Plan: Repeat echocardiogram. Not available on the weekends. So will be 08/15. Assess left ventricular function and aortic valve (5) YONATAN on CPAP Conclusion/Plan: This with obesity hypoventilation syndrome. BiPAP. Reassess. (6) Obesity hypoventilation syndrome Conclusion/Plan: This with obstructive sleep apnea. BiPAP. Reassess. (7) Controlled type 2 diabetes mellitus without complication, with long-term current use of insulin Conclusion/Plan: At home he is on short acting insulin, Lantus, and Metformin. On admission his random glucose was 123. Yesterday he was 128, 124, 144, 147. Today he is 121, 111, 177. Plan: on reduced Lantus from 30 units subcu twice daily to 15 units twice daily. He is eating now. Sliding scale insulin every 6 hours. If his glucose starts to go up, I will increase to his home Lantus dose. Glycosylated hemoglobin has been drawn. The lab runs those and batches in the next batch is not till tonight. Will review tomorrow morning. (8) Self neglect Conclusion/Plan: Son has already filed APS report. We will file APS report. I will also have social work start investigating if there are any opportunities through the [place] healthcare system such as long-term jail or retirement facility for him.[facility] but [facility] no [facility].
[2021-08-13 15:00] LABS: HGB - HEMOGLOBIN 13.5 g/dL (14.0-18.0)
[2021-08-13 15:05] LABS: BASOPHILS % (AUTO) 0.2 %; EOSINOPHILS # (AUTO) 0.1 10^3/uL (0.0-0.7); EOSINOPHILS % (AUTO) 1.7 %; HCT - HEMATOCRIT 50.3 % (42.0-52.0); LYMPHOCYTES # (AUTO) 1.1 10^3/uL (1.5-3.5); LYMPHOCYTES % (AUTO) 14.2 %; MEAN CORPUSCULAR HEMOGLOBIN 23.9 pg (27.0-31.0); MEAN CORPUSCULAR HGB CONC 26.8 g/dL (32.0-36.0); MEAN PLATELET VOLUME 9.4 fL (7.4-11.4); MONOCYTES # (AUTO) 0.5 10^3/uL (0.0-1.0); MONOCYTES % (AUTO) 6.2 %; NEUTROPHILS # (AUTO) 6.2 10^3/uL (1.5-6.6); NEUTROPHILS % (AUTO) 77.3 %; PLT - PLATELET COUNT 214 10^3/uL (130-450); RED BLOOD COUNT 5.65 10^6/uL (4.70-6.10); RED CELL DISTRIBUTION WIDTH 16.8 % (12.0-15.0); WHITE BLOOD COUNT 8.1 x10^3/uL (4.8-10.8)
[2021-08-13 15:07] LABS: SLIDE REVIEW? Indicated
[2021-08-13 15:43] LABS: PLATELET ESTIMATE, MANUAL NORMAL (130-450,000) (NORMAL); PLATELET MORPHOLOGY NORMAL APPEARANCE (NORMAL); RBC MORPHOLOGY (MULTIPLE) NORMAL APPEARANCE (NORMAL)
[2021-08-13 16:06] LABS: CALCIUM 8.9 mg/dL (8.5-10.3)
[2021-08-13] MEDS: SERTRALINE 50 MG TABLET PO SCH (20:26)
[2021-08-13] MEDS: INSULIN ASPART 300 UNIT/3 ML PEN SUBQ SCH (21:09)
[2021-08-13 21:14] LABS: ESTIMATED AVERAGE GLUCOSE 146 mg/dL (70-100); HEMOGLOBIN A1c% 6.7 % (4.27-6.07)
[2021-08-14 04:57] LABS: ABG BASE EXCESS 8.7 mmol/L (-2.0-3.0); ABG HCO3 38.5 mmol/L (22.0-26.0); ABG OXYGEN SATURATION 96 % (94-98); ABG PH 7.29 (7.35-7.45); ABG PO2 90 mmHg (80-100); ALLEN TEST POSITIVE
[2021-08-14 04:58] LABS: ABG PCO2 82 mmHg (34-45)
[2021-08-14] MEDS: oxyCODONE 5 MG TABLET PO PRN ×2 (05:03→21:01)
[2021-08-14] MEDS: INSULIN GLARGINE 300 UNIT/3 ML PEN SUBQ SCH ×2 (05:03→19:32)
[2021-08-14 05:06] LABS: BASOPHILS % (AUTO) 0.4 %; EOSINOPHILS # (AUTO) 0.2 10^3/uL (0.0-0.7); EOSINOPHILS % (AUTO) 2.3 %; HCT - HEMATOCRIT 47.1 % (42.0-52.0); HGB - HEMOGLOBIN 12.9 g/dL (14.0-18.0); LYMPHOCYTES # (AUTO) 1.1 10^3/uL (1.5-3.5); LYMPHOCYTES % (AUTO) 15.2 %; MEAN CORPUSCULAR HEMOGLOBIN 23.9 pg (27.0-31.0); MEAN CORPUSCULAR HGB CONC 27.4 g/dL (32.0-36.0); MEAN CORPUSCULAR VOLUME 87.4 fL (80.0-94.0); MEAN PLATELET VOLUME 9.8 fL (7.4-11.4); MONOCYTES # (AUTO) 0.6 10^3/uL (0.0-1.0); MONOCYTES % (AUTO) 7.9 %; NEUTROPHILS # (AUTO) 5.4 10^3/uL (1.5-6.6); NEUTROPHILS % (AUTO) 73.9 %; PLT - PLATELET COUNT 202 10^3/uL (130-450); RED BLOOD COUNT 5.39 10^6/uL (4.70-6.10); RED CELL DISTRIBUTION WIDTH 16.3 % (12.0-15.0); WHITE BLOOD COUNT 7.3 x10^3/uL (4.8-10.8)
[2021-08-14 05:09] LABS: SLIDE REVIEW? Indicated
[2021-08-14 05:27] LABS: PLATELET ESTIMATE, MANUAL NORMAL (130-450,000) (NORMAL); PLATELET MORPHOLOGY NORMAL APPEARANCE (NORMAL); RBC MORPHOLOGY (MULTIPLE) NORMAL APPEARANCE (NORMAL); WBC MORPHOLOGY (MULTIPLE) NORMAL APPEARANCE (NORMAL)
[2021-08-14 05:29] LABS: CALCIUM 8.7 mg/dL (8.5-10.3); CREATININE 0.8 mg/dL (0.6-1.2); POTASSIUM 4.5 mmol/L (3.5-5.0)
[2021-08-14] MEDS: INSULIN ASPART 300 UNIT/3 ML PEN SUBQ SCH ×4 (08:58→20:53)
[2021-08-14] MEDS: SODIUM CHLORIDE FLUSH 0.9% 10 ML SYRINGE IVP PRN ×2 (10:39→16:57)
[2021-08-14] MEDS: ENOXAPARIN 40 MG/0.4 ML SYRINGE SUBQ SCH ×2 (10:40→20:51)
[2021-08-14] MEDS: FUROSEMIDE 40 MG TABLET PO SCH (10:57)
[2021-08-14] MEDS: SENNA 8.6 MG TABLET PO SCH (10:57)
[2021-08-14] MEDS: SERTRALINE 50 MG TABLET PO SCH (10:57)
[2021-08-14] MEDS: DOCUSATE SODIUM 250 MG CAPSULE PO SCH (10:58)
[2021-08-14] MEDS: TAMSULOSIN 0.4 MG CAPSULE PO SCH (10:58)
[2021-08-14] MEDS: INSULIN REGULAR HUMAN 300 UNIT/3 ML VIAL SUBQ SCH ×3 (18:00→22:29)
--- NOTE | 2021-08-14 20:43 | PROVIDER PROGRESS NOTE ---
Progress Note August 14, 2021 1300 He is waking up more more. This morning he was a good morning. He was laughing and joking about how slow he is gone. Is taking a lot of effort working with physical therapy to get up out of the bed. He gets very easily tachypneic. His legs are wobbly underneath him. The right knee hurts. Still requiring quite a bit of BiPAP to keep him without getting hypoxic. But he is able to eat. Afebrile. Pulse 68. Blood pressure 152/60. Respirations 23. 94% saturated on the BiPAP with an FiO2 of 35%. Corpulent white male, bearded, pleasant. Sleeps a lot. Neck is too thick to assess for JVD Coarse upper airway sounds. But no crackles rhonchi or wheezing. No respiratory distress. The abdomen is obese, soft. Nontender. He had diffuse folliculitis across his entire abdominal wall when I admitted him. All that is gone. The Sil intertrigo and dense redness of his groin has improved tremendously with hyg iene/nursing care. Scrotum is still markedly edematous and the scrotal sac is full of fluid. The legs are wrapped, and skin is much improved in size and edema. Carbon dioxide is still high at 39 if decompensates for his respiratory acidosis. BUN and creatinine are 34/0.8 respectively. White cell count is normal at 7.3. Hemoglobin 12.9. Assessment/plan Acute on chronic respiratory failure with hypoxia and hypercapnia. Anticipate he is getting be here for quite some time. He is get a right require prolonged BiPAP and support in the ICU. I have called the [place] for transfer again today but there are no beds. He really needs to be seen by pulmonology and to have his status stabilized under specialty care. CO2 narcosis is improving but still present Chronic venous stasis dermatitis of both lower extremities is improving with wraps and elevation Mild aortic stenosis. Will order echo for tomorrow since it is Sunday. Obstructive sleep apnea/obesity hypoventilation syndrome are the cause of his acute on chronic respiratory failure. He needs weight loss, rehab and I will look to the [place] facility to help me with that. Controlled type 2 diabetes mellitus, on sliding scale. No change at this time.
[2021-08-15] MEDS: INSULIN GLARGINE 300 UNIT/3 ML PEN SUBQ SCH ×2 (05:07→17:27)
[2021-08-15] MEDS: INSULIN REGULAR HUMAN 300 UNIT/3 ML VIAL SUBQ SCH ×3 (05:07→17:28)
[2021-08-15] MEDS: oxyCODONE 5 MG TABLET PO PRN (05:07)
[2021-08-15 05:24] LABS: BASOPHILS % (AUTO) 0.3 %; EOSINOPHILS # (AUTO) 0.2 10^3/uL (0.0-0.7); EOSINOPHILS % (AUTO) 2.4 %; HCT - HEMATOCRIT 46.6 % (42.0-52.0); HGB - HEMOGLOBIN 12.4 g/dL (14.0-18.0); LYMPHOCYTES # (AUTO) 1.3 10^3/uL (1.5-3.5); LYMPHOCYTES % (AUTO) 20.5 %; MEAN CORPUSCULAR HGB CONC 26.6 g/dL (32.0-36.0); MEAN CORPUSCULAR VOLUME 86.6 fL (80.0-94.0); MEAN PLATELET VOLUME 9.9 fL (7.4-11.4); MONOCYTES # (AUTO) 0.5 10^3/uL (0.0-1.0); MONOCYTES % (AUTO) 8.3 %; NEUTROPHILS # (AUTO) 4.2 10^3/uL (1.5-6.6); PLT - PLATELET COUNT 200 10^3/uL (130-450); RED BLOOD COUNT 5.38 10^6/uL (4.70-6.10); RED CELL DISTRIBUTION WIDTH 16.4 % (12.0-15.0); WHITE BLOOD COUNT 6.2 x10^3/uL (4.8-10.8)
[2021-08-15 05:25] LABS: SLIDE REVIEW? Indicated
[2021-08-15 05:58] LABS: PLATELET ESTIMATE, MANUAL NORMAL (130-450,000) (NORMAL); PLATELET MORPHOLOGY NORMAL APPEARANCE (NORMAL); RBC MORPHOLOGY (MULTIPLE) 1+ HYPOCHROMASIA (NORMAL); WBC MORPHOLOGY (MULTIPLE) NORMAL APPEARANCE (NORMAL)
[2021-08-15 06:00] LABS: CREATININE 0.8 mg/dL (0.6-1.2); POTASSIUM 4.6 mmol/L (3.5-5.0)
[2021-08-15] MEDS: INSULIN ASPART 300 UNIT/3 ML PEN SUBQ SCH ×4 (08:57→21:03)
[2021-08-15] MEDS: ENOXAPARIN 40 MG/0.4 ML SYRINGE SUBQ SCH ×2 (09:00→21:02)
[2021-08-15] MEDS: DOCUSATE SODIUM 250 MG CAPSULE PO SCH (09:00)
[2021-08-15] MEDS: SENNA 8.6 MG TABLET PO SCH (09:01)
[2021-08-15] MEDS: FUROSEMIDE 40 MG TABLET PO SCH (09:01)
[2021-08-15] MEDS: SERTRALINE 50 MG TABLET PO SCH (09:02)
[2021-08-15] MEDS: TAMSULOSIN 0.4 MG CAPSULE PO SCH (09:02)
--- NOTE | 2021-08-15 12:35 | PROVIDER PROGRESS NOTE ---
Subjective - Prog Note Date Prog Note Date: 08/15/21 Prog Note Time: 12:31 - Subjective Pt reports feeling: Improved Subjective: Joce is feeling drastically better today. He looks awake, alert, and is conversational. Today he seems cheerful and asked the nurses to help shave his face for him and is grateful for their help. He is eating his meals and is able to come off the BiPAP for short periods of time without any respiratory distress or tachypnea. His O2 is at 95-97% on4L. His ABG yesterday showed pH 7.29, pCO2 82, pO2 90, and HCO3 38.5. Total CO2 41.0. Joce is not able to get up on his own and requires max assist to ambulate. PT is working with him. His legs are wobbly and he is having right knee pain. He expresses that he does not feel safe at home by himself. We are working on finding a transfer facility for him. Current Medications - Current Medications Current Medications: Active Medications Acetaminophen (Acetaminophen 325 Mg Tablet) 650 mg PO Q4HR PRN PRN Reason: Pain 1 to 4 Docusate Sodium (Docusate Sodium 250 Mg Capsule) 250 - 500 mg PO DAILY [facility] Last Admin: 08/15/21 09:00 Dose: 250 mg Documented by: Enoxaparin Sodium (Enoxaparin 40 Mg/0.4 Ml Syringe) 40 mg SUBQ BID [facility] Last Admin: 08/15/21 09:00 Dose: 40 mg Documented by: Furosemide (Furosemide 40 Mg Tablet) 40 mg PO DAILY [facility] Last Admin: 08/15/21 09:01 Dose: 40 mg Documented by: Insulin Aspart (Insulin Aspart 300 Unit/3 Ml Pen) 1 - 5 unit SUBQ 0800,1200,1700,2100 [facility]; Protocol Last Admin: 08/15/21 12:11 Dose: 2 unit Documented by: Insulin Glargine (Insulin Glargine 300 Unit/3 Ml Pen) 15 unit SUBQ 0600,1800 [facility] Last Admin: 08/15/21 05:07 Dose: 15 unit Documented by: Insulin Human Regular (Insulin Regular Human 300 Unit/3 Ml Vial) 1 - 5 unit SUBQ Q6HR [facility]; Protocol Last Admin: 08/15/21 12:14 Dose: Not Given Documented by: Ondansetron HCl (Ondansetron Odt 4 Mg Tablet) 4 mg TL Q6HR PRN PRN Reason: Nausea / Vomiting Ondansetron HCl (Ondansetron 4 Mg/2 Ml Vial) 4 mg IVP Q6HR PRN PRN Reason: Nausea / Vomiting Oxycodone HCl (Oxycodone 5 Mg Tablet) 5 mg PO Q4HR PRN PRN Reason: Pain 5 to 7 Last Admin: 08/15/21 05:07 Dose: 5 mg Documented by: Senna (Senna 8.6 Mg Tablet) 8.6 - 17.2 mg PO DAILY [facility] Last Admin: 08/15/21 09:01 Dose: 8.6 mg Documented by: Sertraline HCl (Sertraline 50 Mg Tablet) 200 mg PO DAILY [facility] Last Admin: 08/15/21 09:02 Dose: 200 mg Documented by: Sodium Chloride (Sodium Chloride Flush 0.9% 10 Ml Syringe) 10 ml IVP PRN PRN PRN Reason: NEEDED PER PROVIDER ORDERS Last Admin: 08/14/21 16:57 Dose: 10 ml Documented by: Tamsulosin HCl (Tamsulosin 0.4 Mg Capsule) 0.4 mg PO DAILY [facility] Last Admin: 08/15/21 09:02 Dose: 0.4 mg Documented by: Aspirin [Aspir 81] 81 mg PO HS 02/26/14 Atorvastatin Calcium [Lipitor] 80 mg PO DAILY 02/26/14 Insulin Glargine,Hum.rec.anlog [Lantus] 30 unit SUBQ BID 02/26/14 Metformin HCl [Fortamet] 1,000 mg PO BID 12/31/20 Tamsulosin [Flomax] 0.8 mg PO QPM 12/31/20 Insulin Aspart [NovoLOG] 4 units SUBQ TIDWM 01/12/21 Empagliflozin [Jardiance] 12.5 mg PO DAILY 08/12/21 Furosemide [Lasix] 40 mg PO DAILY 08/12/21 Losartan Potassium [Cozaar] 100 mg PO DAILY 08/12/21 Sertraline HCl 200 mg PO DAILY 08/12/21 Objective - Vital Signs/Intake & Output Reviewed Vital Signs: Yes Vital Signs: Vital Signs x48h Temp Pulse Resp BP Pulse Ox 08/15/21 10:00 79 23 148/69 H 97 08/15/21 09:00 67 20 141/67 H 96 08/15/21 08:00 36.2 C L 74 22 137/63 H 95 08/15/21 07:00 74 21 137/63 H 96 08/15/21 06:00 76 22 140/65 H 96 08/15/21 05:00 36 C L 72 20 136/61 H 97 Intake & Output: Intake & Output 08/12/21 08/13/21 08/14/21 08/15/21 23:59 23:59 23:59 23:59 Intake Total 500 1360 1260 Output Total 400 1540 1700 851 Balance 100 -180 -440 -851 - Objective General Appearance: positive: Alert (More cheerful and engaged today) Eyes Bilateral: positive: PERRL, EOMI ENT: positive: No signs of dehydration Neck: positive: No JVD (very short, thick neck unable to assess for JVD. But neck is supple). negative: Stiff neck Respiratory: positive: Other (Tubular breath sounds in the upper lung cordova that are more I think from the BiPAP mask in his upper trachea and his lung sounds are very, very, very quiet.). negative: Wheezes, Rales, Rhonchi Cardiovascular: positive: Regular rate & rhythm, No murmur. negative: Gallop/S4, Friction rub Abdomen: positive: Other (Unusually obese abdominal pannus, the redness and follicular changes along each hair shaft have improved. Still has redness and probable Sil of the intertriginous folds. An enlarged fluid-filled scrotal sac. Uncircumcised penis that has disappeared into his abdominal pannus and scrotal sac.) Skin: positive: Warm, Dry, Other (Chronic venous stasis dermatitis of both lower extremities with dense redness, heat, scaling yellow skin. At this time no oozing or ulcers.) Extremities: positive: Non-tender, Pedal edema (Improved, legs are wrapped) Neurologic/Psychiatric: positive: Oriented x3 - Lab Results Fish Bones: 08/15/21 04:44 08/15/21 04:44 Other Labs: Lab Results x24hrs 08/15/21 08/15/21 Range/Units 04:44 04:44 WBC 6.2 (4.8-10.8) x10^3/uL RBC 5.38 (4.70-6.10) 10^6/uL Hgb 12.4 L (14.0-18.0) g/dL Hct 46.6 (42.0-52.0) % MCV 86.6 (80.0-94.0) fL MCH 23.0 L (27.0-31.0) pg MCHC 26.6 L (32.0-36.0) g/dL RDW 16.4 H (12.0-15.0) % Plt Count 200 (130-450) 10^3/uL MPV 9.9 (7.4-11.4) fL Neut # (Auto) 4.2 (1.5-6.6) 10^3/uL Lymph # (Auto) 1.3 L (1.5-3.5) 10^3/uL [place] # (Auto) 0.5 (0.0-1.0) 10^3/uL Eos # (Auto) 0.2 (0.0-0.7) 10^3/uL Baso # (Auto) 0.0 (0.0-0.1) 10^3/uL Absolute Nucleated RBC 0.00 x10^3/uL Nucleated RBC % 0.0 /100WBC Manual Slide Review Indicated WBC Morphology NORMAL APPEARANCE (NORMAL) Platelet Estimate NORMAL (130-450,000) (NORMAL) Platelet Morphology NORMAL APPEARANCE (NORMAL) RBC Morph Micro Appear 1+ HYPOCHROMASIA (NORMAL) Sodium 144 (135-145) mmol/L Potassium 4.6 (3.5-5.0) mmol/L Chloride 96 L (101-111) mmol/L Carbon Dioxide 39 H* (21-32) mmol/L Anion Gap 9.0 (6-13) BUN 32 H (6-20) mg/dL Creatinine 0.8 (0.6-1.2) mg/dL Estimated GFR (MDRD) 96 (>89) Glucose 144 H (70-100) mg/dL Calcium 9.0 (8.5-10.3) mg/dL Assessment/Plan - Problem List (1) Acute on chronic respiratory failure with hypoxia and hypercapnia Impression: This unfortunate gentleman has obesity hypoventilation syndrome, and obstructive sleep apnea. We were able to get [facility] to [facility] December of this year to get him all the proper equipment but unfortunately he has been noncompliant. Unclear why. Son knows that dad wants help, and is gotten the appropriate help, but cannot seem to follow through. There is no substance abuse in the picture. Assessment/plan BiPAP in the ICU to continue until he is at baseline orientation and ambulation Empiric steroids Will repeat ABG today. No antibiotics at this time since chest x-ray is negative No echocardiogram since he is responding [facility]. He really needs to be seen by pulmonology and to have his status stabilized under specialty care. (2) CO2 narcosis Conclusion/Plan: Probably present for weeks if not months. Acutely worsened in the ER. Improved with BiPAP but still present. (3) Chronic venous stasis dermatitis of both lower extremities Conclusion/Plan: Nursing staff or aides washed his legs with soap and water. Jon wrap compression is being used since NAMAN hose and SCDs may not work on him. They are much less edematous compared to admission. There is no fever, no elevated white cell count. As such I do not think this is cellulitis. (4) Mild aortic stenosis Conclusion/Plan: No need for repeat echocardiogram at this time. (5) YONATAN on CPAP Conclusion/Plan: This with obesity hypoventilation syndrome. BiPAP. Reassess. (6) Obesity hypoventilation syndrome Conclusion/Plan: This with obstructive sleep apnea. BiPAP. Reassess. (7) Controlled type 2 diabetes mellitus without complication, with long-term current use of insulin Conclusion/Plan: Controlled type 2 diabetes mellitus, on sliding scale. No change at this time. (8) Self neglect Conclusion/Plan: Son has already filed APS report. We will file APS report. I will also have social work start investigating if there are any opportunities through the [facility] such as long-term intermediate or group home facility for him. We have tried transferring him to the [facility] but they have no beds.
[2021-08-16 05:10] LABS: BASOPHILS % (AUTO) 0.4 %; EOSINOPHILS # (AUTO) 0.1 10^3/uL (0.0-0.7); EOSINOPHILS % (AUTO) 2.5 %; HCT - HEMATOCRIT 46.9 % (42.0-52.0); HGB - HEMOGLOBIN 12.6 g/dL (14.0-18.0); LYMPHOCYTES % (AUTO) 18.5 %; MEAN CORPUSCULAR HEMOGLOBIN 23.6 pg (27.0-31.0); MEAN CORPUSCULAR HGB CONC 26.9 g/dL (32.0-36.0); MEAN CORPUSCULAR VOLUME 87.7 fL (80.0-94.0); MEAN PLATELET VOLUME 10.5 fL (7.4-11.4); MONOCYTES # (AUTO) 0.4 10^3/uL (0.0-1.0); MONOCYTES % (AUTO) 7.5 %; NEUTROPHILS % (AUTO) 70.7 %; PLT - PLATELET COUNT 173 10^3/uL (130-450); RED BLOOD COUNT 5.35 10^6/uL (4.70-6.10); RED CELL DISTRIBUTION WIDTH 16.2 % (12.0-15.0); WHITE BLOOD COUNT 5.6 x10^3/uL (4.8-10.8)
[2021-08-16 05:19] LABS: SLIDE REVIEW? Indicated
[2021-08-16 05:30] LABS: PLATELET ESTIMATE, MANUAL NORMAL (130-450,000) (NORMAL); PLATELET MORPHOLOGY NORMAL APPEARANCE (NORMAL); RBC MORPHOLOGY (MULTIPLE) 1+ HYPOCHROMASIA (NORMAL); WBC MORPHOLOGY (MULTIPLE) NORMAL APPEARANCE (NORMAL)
[2021-08-16 05:35] LABS: CALCIUM 8.7 mg/dL (8.5-10.3); CREATININE 0.7 mg/dL (0.6-1.2); POTASSIUM 4.6 mmol/L (3.5-5.0)
[2021-08-16] MEDS: INSULIN GLARGINE 300 UNIT/3 ML PEN SUBQ SCH ×2 (06:55→17:45)
[2021-08-16 07:45] LABS: ABG BASE EXCESS 12.5 mmol/L (-2.0-3.0); ABG HCO3 40.7 mmol/L (22.0-26.0); ABG OXYGEN SATURATION 97 % (94-98); ABG PH 7.38 (7.35-7.45); ABG PO2 85 mmHg (80-100); ALLEN TEST POSITIVE
[2021-08-16 07:46] LABS: ABG RESPIRATORY RATE 15 b/min
[2021-08-16 07:50] LABS: ABG PCO2 70 mmHg (34-45)
[2021-08-16 07:51] LABS: ABG TCO2 42.9 MMOL/L (21.0-29.0)
--- NOTE | 2021-08-16 08:07 | PROVIDER PROGRESS NOTE ---
Assessment/Plan - Problem List (1) Acute on chronic respiratory failure with hypoxia and hypercapnia Assessment/Plan: Patient has history of obesity hypoventilation syndrome and obstructive sleep apnea. He is noncompliant with his BiPAP at home. Patient's PCO2 today was 70. This is an improvement from yesterday when it was 82. We will continue BiPAP qhs. (2) CO2 narcosis Assessment/Plan: Improved. ABG this morning showed a PCO2 of 70. Yesterday PCO2 was 82. We will continue BiPAP daily. (3) Chronic venous stasis dermatitis of both lower extremities Assessment/Plan: Lower extremity is currently wrapped with Jon wrap compressions. Lower extremity edema noted. Lasix 40 mg p.o. daily. (4) Mild aortic stenosis Assessment/Plan: 2D echocardiogram done January 13, 2021 showed mild aortic stenosis. Will not repeat echocardiogram at the moment. (5) YONATAN on CPAP Assessment/Plan: On bipap. We will continue qhs (6) Obesity hypoventilation syndrome Assessment/Plan: On BiPAP (7) Controlled type 2 diabetes mellitus without complication, with long-term current use of insulin Assessment/Plan: Controlled. On sliding scale insulin. Lantus 15 units subcu every morning. Accu- Cheks before every meal and at bedtime. (8) Self neglect Assessment/Plan: [facility] has [facility] due to no bed availability. Social work to continue assisting in disposition/placement - Current Meds Current Meds: Current Medications Generic Name Dose Route Start Last Admin Trade Name Selina PRN Reason Stop Dose Admin Docusate Sodium 250 - 500 mg 08/14/21 09:00 08/15/21 09:00 Docusate Sodium 250 Mg Capsule PO 250 mg DAILY JANYA Administration Enoxaparin Sodium 40 mg 08/13/21 09:00 08/15/21 21:02 Enoxaparin 40 Mg/0.4 Ml Syringe SUBQ 40 mg BID JAYNA Administration Furosemide 40 mg 08/13/21 09:00 08/15/21 09:01 Furosemide 40 Mg Tablet PO 40 mg DAILY JAYNA Administration Insulin Aspart 1 - 5 unit 08/13/21 21:00 08/15/21 21:03 Insulin Aspart 300 Unit/3 Ml Pen SUBQ 1 unit 0800,1200,1700,2100 JAYNA Administration Protocol Insulin Glargine 15 unit 08/12/21 18:00 08/16/21 06:55 Insulin Glargine 300 Unit/3 Ml Pen SUBQ 15 unit 0600,1800 JAYNA Administration Oxycodone HCl 5 mg 08/12/21 10:08/15/21 05:07 Oxycodone 5 Mg Tablet PO 5 mg Q4HR PRN Administration Pain 5 to 7 Senna 8.6 - 17.2 mg 08/14/21 09:00 08/15/21 09:01 Senna 8.6 Mg Tablet PO 8.6 mg DAILY JAYNA Administration Sertraline HCl 200 mg 08/13/21 21:00 08/15/21 09:02 Sertraline 50 Mg Tablet PO 200 mg DAILY JAYNA Administration Sodium Chloride 10 ml 08/12/21 10:08/14/21 16:57 Sodium Chloride Flush 0.9% 10 Ml Syringe IVP 10 ml PRN PRN Administration NEEDED PER PROVIDER ORDERS Tamsulosin HCl 0.4 mg 08/13/21 09:00 08/15/21 09:02 Tamsulosin 0.4 Mg Capsule PO 0.4 mg DAILY JAYNA Administration - Lab Result Fish Bone Diagrams: 08/16/21 04:41 08/16/21 04:41 - Additional Planning My Orders: My Active Orders 08/16/21 07:27 RT - Obtain Arterial Specimen [RC] .ONCE Subjective - Subjective Patient Reports: Other (Resting comfortably in bed. He reports not sleeping well at night due to the BiPAP machine. He has significant lower extremity edema. He denies any other complaints.) Objective Vital Signs: Vital Signs - 24 hr 08/15/21 08/15/21 08/15/21 09:00 10:00 11:00 Temperature Heart Rate Heart Rate [ 67 79 64 Monitoring electrodes] Heart Rate [ Sitting] Respiratory 20 23 18 Rate Blood Pressure 141/67 H 148/69 H 129/61 [Left Brachial artery] Blood Pressure [Sitting] O2 Saturation 96 97 97 08/15/21 08/15/21 08/15/21 12:00 13:00 14:00 Temperature 36.2 C L Heart Rate Heart Rate [ 67 68 73 Monitoring electrodes] Heart Rate [ 67 Sitting] Respiratory 14 16 18 Rate Blood Pressure 144/92 H 158/66 H 148/63 H [Left Brachial artery] Blood Pressure 148/68 H [Sitting] O2 Saturation 96 95 94 08/15/21 08/15/21 08/15/21 15:00 16:00 16:03 Temperature 36.9 C Heart Rate Heart Rate [ 68 78 Monitoring electrodes] Heart Rate [ Sitting] Respiratory 21 17 Rate Blood Pressure 138/60 H 95/72 [Left Brachial artery] Blood Pressure [Sitting] O2 Saturation 94 100 08/15/21 08/15/21 08/15/21 17:00 18:00 19:00 Temperature Heart Rate Heart Rate [ 71 79 76 Monitoring electrodes] Heart Rate [ Sitting] Respiratory 22 18 21 Rate Blood Pressure 129/59 L 147/62 H 149/65 H [Left Brachial artery] Blood Pressure [Sitting] O2 Saturation 96 95 94 08/15/21 08/15/21 08/15/21 20:00 21:00 21:40 Temperature 36.8 C Heart Rate 70 Heart Rate [ 73 73 Monitoring electrodes] Heart Rate [ Sitting] Respiratory 19 20 Rate Blood Pressure 147/59 H 147/70 H [Left Brachial artery] Blood Pressure [Sitting] O2 Saturation 94 93 08/15/21 08/15/21 08/16/21 22:00 23:00 00:00 Temperature 36.8 C Heart Rate Heart Rate [ 55 L 57 L 57 L Monitoring electrodes] Heart Rate [ Sitting] Respiratory 19 18 19 Rate Blood Pressure 145/65 H 150/64 H 133/63 H [Left Brachial artery] Blood Pressure [Sitting] O2 Saturation 97 96 94 08/16/21 08/16/21 08/16/21 01:00 01:50 02:00 Temperature Heart Rate 56 L Heart Rate [ 48 L 59 L Monitoring electrodes] Heart Rate [ Sitting] Respiratory 19 26 H Rate Blood Pressure 151/63 H 136/73 H [Left Brachial artery] Blood Pressure [Sitting] O2 Saturation 98 95 08/16/21 08/16/21 08/16/21 03:00 04:00 05:00 Temperature 36.7 C Heart Rate Heart Rate [ 59 L 49 L 56 L Monitoring electrodes] Heart Rate [ Sitting] Respiratory 19 17 19 Rate Blood Pressure 133/65 H 150/59 H 136/60 H [Left Brachial artery] Blood Pressure [Sitting] O2 Saturation 93 93 96 08/16/21 08/16/21 05:45 06:00 Temperature Heart Rate 56 L Heart Rate [ 58 L Monitoring electrodes] Heart Rate [ Sitting] Respiratory 19 Rate Blood Pressure 135/58 H [Left Brachial artery] Blood Pressure [Sitting] O2 Saturation 94 Oxygen O2 Source BIPAP Oxygen Flow Rate 4 I&O (Last 24 Hrs): Intake and Output Totals x24h 08/14/21 08/15/21 08/16/21 23:59 23:59 23:59 Intake Total 1260 1310 500 Output Total 1700 1351 500 Balance -440 -41 0 General: Alert, Oriented x3, No acute distress HEENT: PERRLA, EOMI Neck: Supple Neuro: Alert, Oriented Times 3 Cardiovascular: Regular rate, Normal S1, Normal S2 Respiratory: Chest non-tender, No respiratory distress, Other (Diminished) Abdomen: Normal bowel sounds, Soft, No tenderness Extremities: No clubbing, No cyanosis, Other (3+ lower extremity. Bilaterally) Skin: No rashes, No breakdown Comments/Notes: chronic venostasis changes - Results Results: Laboratory Results WBC 5.6 x10^3/uL (4.8-10.8) 08/16/21 04:41 RBC 5.35 10^6/uL (4.70-6.10) 08/16/21 04:41 Hgb 12.6 g/dL (14.0-18.0) L 08/16/21 04:41 Hct 46.9 % (42.0-52.0) 08/16/21 04:41 MCV 87.7 fL (80.0-94.0) 08/16/21 04:41 MCH 23.6 pg (27.0-31.0) L 08/16/21 04:41 MCHC 26.9 g/dL (32.0-36.0) L 08/16/21 04:41 RDW 16.2 % (12.0-15.0) H 08/16/21 04:41 Plt Count 173 10^3/uL (130-450) 08/16/21 04:41 MPV 10.5 fL (7.4-11.4) 08/16/21 04:41 Neut # (Auto) 4.0 10^3/uL (1.5-6.6) 08/16/21 04:41 Lymph # (Auto) 1.0 10^3/uL (1.5-3.5) L 08/16/21 04:41 [place] # (Auto) 0.4 10^3/uL (0.0-1.0) 08/16/21 04:41 Eos # (Auto) 0.1 10^3/uL (0.0-0.7) 08/16/21 04:41 Baso # (Auto) 0.0 10^3/uL (0.0-0.1) 08/16/21 04:41 Absolute Nucleated RBC 0.00 x10^3/uL 08/16/21 04:41 Nucleated RBC % 0.0 /100WBC 08/16/21 04:41 Manual Slide Review Indicated 08/16/21 04:41 WBC Morphology NORMAL APPEARANCE (NORMAL) 08/16/21 04:41 Platelet Estimate NORMAL (130-450,000) (NORMAL) 08/16/21 04:41 Platelet Morphology NORMAL APPEARANCE (NORMAL) 08/16/21 04:41 RBC Morph Micro Appear 1+ HYPOCHROMASIA (NORMAL) 08/16/21 04:41 Bld Gas Analysis Time 0745 08/16/21 07:40 Sample Site LEFT RADIAL 08/16/21 07:40 ABG pH 7.38 (7.35-7.45) 08/16/21 07:40 ABG pCO2 70 mmHg (34-45) H* 08/16/21 07:40 ABG pO2 85 mmHg (80-100) 08/16/21 07:40 ABG HCO3 40.7 mmol/L (22.0-26.0) H 08/16/21 07:40 ABG Total CO2 42.9 MMOL/L (21.0-29.0) H* 08/16/21 07:40 ABG O2 Saturation 97 % (94-98) 08/16/21 07:40 ABG Base Excess 12.5 mmol/L (-2.0-3.0) H 08/16/21 07:40 Reynaldo Test POSITIVE 08/16/21 07:40 VBG pH 7.170 (7.31-7.41) L 08/12/21 11:22 VBG pCO2 102.1 mmHg (41-51) H 08/12/21 11:22 VBG pO2 85.8 mmHg (25-47) H 08/12/21 11:22 VBG HCO3 36.4 mmol/L (23-28) H 08/12/21 11:22 VBG Total CO2 39.5 mmol/L (24-29) H 08/12/21 11:22 VBG O2 Saturation 95.4 % (60-80) H 08/12/21 11:22 VBG Base Excess 3.6 mmol/L (-2 - +2) H 08/12/21 11:22 Respiration Rate 15 b/min 08/16/21 07:40 O2 Delivery Device BiPAP 08/16/21 07:40 Vent Mode SYNCHRONOUS/TIMES 08/12/21 18:15 FiO2 35.00 08/16/21 07:40 Pressure Support Vent 3 cmH2O 08/12/21 18:15 EPAP 8 cmH2O 08/16/21 07:40 IPAP 16 cmH2O 08/16/21 07:40 Sodium 141 mmol/L (135-145) 08/16/21 04:41 Potassium 4.6 mmol/L (3.5-5.0) 08/16/21 04:41 Chloride 93 mmol/L (101-111) L 08/16/21 04:41 Carbon Dioxide 41 mmol/L (21-32) H* 08/16/21 04:41 Anion Gap 7.0 (6-13) 08/16/21 04:41 BUN 27 mg/dL (6-20) H 08/16/21 04:41 Creatinine 0.7 mg/dL (0.6-1.2) 08/16/21 04:41 Estimated GFR (MDRD) 112 (>89) 08/16/21 04:41 Glucose 134 mg/dL (70-100) H 08/16/21 04:41 POC Whole Bld Glucose 171 mg/dL (70 - 100) H 08/15/21 20:52 Estimat Average Glucose 146 mg/dL (70-100) H 08/13/21 14:53 Hemoglobin A1c % 6.7 % (4.27-6.07) H 08/13/21 14:53 Calcium 8.7 mg/dL (8.5-10.3) 08/16/21 04:41 Total Bilirubin 0.6 mg/dL (0.2-1.0) 08/12/21 08:40 AST 14 IU/L (10-42) 08/12/21 08:40 ALT 15 IU/L (10-60) 08/12/21 08:40 Alkaline Phosphatase 119 IU/L (42-121) 08/12/21 08:40 Troponin I High Sens 27.4 ng/L (2.3-19.7) H* 08/12/21 11:22 B-Natriuretic Peptide 161 pg/mL (5-100) H 08/12/21 08:40 Total Protein 7.2 g/dL (6.7-8.2) 08/12/21 08:40 Albumin 3.2 g/dL (3.2-5.5) 08/12/21 08:40 Globulin 4.0 g/dL (2.1-4.2) 08/12/21 08:40 Albumin/Globulin Ratio 0.8 (1.0-2.2) L 08/12/21 08:40 Lipase 30 U/L (22-51) 08/12/21 08:40 Nasal Adenovirus (PCR) NOT DETECTED 08/12/21 08:40 Nasal B. parapertussis DNA (PCR) NOT DETECTED 08/12/21 08:40 Nasal Coronavir 229E PCR NOT DETECTED 08/12/21 08:40 Nasal Coronavir HKU1 PCR NOT DETECTED 08/12/21 08:40 Nasal Coronavir NL63 PCR NOT DETECTED 08/12/21 08:40 Nasal Coronavir OC43 PCR NOT DETECTED 08/12/21 08:40 Nasal Enterovir/Rhinovir PCR NOT DETECTED 08/12/21 08:40 Nasal Influenza B PCR NOT DETECTED 08/12/21 08:40 Nasal Influenza A PCR NOT DETECTED 08/12/21 08:40 Nasal Parainfluen 1 PCR NOT DETECTED 08/12/21 08:40 Nasal Parainfluen 2 PCR NOT DETECTED 08/12/21 08:40 Nasal Parainfluen 3 PCR NOT DETECTED 08/12/21 08:40 Nasal Parainfluen 4 PCR NOT DETECTED 08/12/21 08:40 Nasal RSV (PCR) NOT DETECTED 08/12/21 08:40 Nasal Screen MRSA (PCR) NEGATIVE (NEGATIVE) 08/12/21 14:00 Nasal B.pertussis DNA PCR NOT DETECTED 08/12/21 08:40 Nasal C.pneumoniae (PCR) NOT DETECTED 08/12/21 08:40 Armando Human Metapneumo PCR NOT DETECTED 08/12/21 08:40 Nasal M.pneumoniae (PCR) NOT DETECTED 08/12/21 08:40 Nasal SARS-CoV-2 (PCR) NOT DETECTED 08/12/21 08:40 - Procedures Procedures: Procedures ENDOSC POLYPECTOMY OF LG INTEST (02/27/14) ABX Reporting Has patient been on IV antibiotics over the past 48 hours?: No
[2021-08-16] MEDS: INSULIN ASPART 300 UNIT/3 ML PEN SUBQ SCH ×7 (09:24→21:17)
[2021-08-16] MEDS: SENNA 8.6 MG TABLET PO SCH (10:01)
[2021-08-16] MEDS: TAMSULOSIN 0.4 MG CAPSULE PO SCH (10:01)
[2021-08-16] MEDS: SERTRALINE 50 MG TABLET PO SCH (10:02)
[2021-08-16] MEDS: DOCUSATE SODIUM 250 MG CAPSULE PO SCH (10:02)
[2021-08-16] MEDS: FUROSEMIDE 40 MG TABLET PO SCH (10:02)
[2021-08-16] MEDS: SODIUM CHLORIDE FLUSH 0.9% 10 ML SYRINGE IVP PRN ×2 (10:05→18:14)
[2021-08-16] MEDS: ENOXAPARIN 40 MG/0.4 ML SYRINGE SUBQ SCH ×2 (10:26→21:16)
[2021-08-16] MEDS: polyethylene glycoL 3350 17 GM PACKET PO SCH (17:45)
[2021-08-16] MEDS: NYSTATIN POWDER 15 GM TOP SCH (21:17)
[2021-08-17 05:48] LABS: BASOPHILS % (AUTO) 0.2 %; EOSINOPHILS # (AUTO) 0.1 10^3/uL (0.0-0.7); EOSINOPHILS % (AUTO) 2.4 %; HCT - HEMATOCRIT 46.7 % (42.0-52.0); HGB - HEMOGLOBIN 12.8 g/dL (14.0-18.0); LYMPHOCYTES % (AUTO) 19.5 %; MEAN CORPUSCULAR HEMOGLOBIN 23.8 pg (27.0-31.0); MEAN CORPUSCULAR HGB CONC 27.4 g/dL (32.0-36.0); MEAN PLATELET VOLUME 10.8 fL (7.4-11.4); MONOCYTES # (AUTO) 0.4 10^3/uL (0.0-1.0); MONOCYTES % (AUTO) 8.1 %; NEUTROPHILS # (AUTO) 3.7 10^3/uL (1.5-6.6); NEUTROPHILS % (AUTO) 69.6 %; PLT - PLATELET COUNT 182 10^3/uL (130-450); RED BLOOD COUNT 5.37 10^6/uL (4.70-6.10); RED CELL DISTRIBUTION WIDTH 16.3 % (12.0-15.0); WHITE BLOOD COUNT 5.3 x10^3/uL (4.8-10.8)
[2021-08-17 06:02] LABS: CALCIUM 8.8 mg/dL (8.5-10.3); CREATININE 0.6 mg/dL (0.6-1.2); POTASSIUM 4.5 mmol/L (3.5-5.0)
[2021-08-17] MEDS: INSULIN GLARGINE 300 UNIT/3 ML PEN SUBQ SCH ×2 (06:15→17:06)
[2021-08-17] MEDS: INSULIN ASPART 300 UNIT/3 ML PEN SUBQ SCH ×7 (07:54→21:28)
[2021-08-17] MEDS: polyethylene glycoL 3350 17 GM PACKET PO SCH (09:16)
[2021-08-17] MEDS: SENNA 8.6 MG TABLET PO SCH (09:17)
[2021-08-17] MEDS: SERTRALINE 50 MG TABLET PO SCH (09:18)
[2021-08-17] MEDS: FUROSEMIDE 40 MG TABLET PO SCH ×2 (09:18→18:57)
[2021-08-17] MEDS: ENOXAPARIN 40 MG/0.4 ML SYRINGE SUBQ SCH ×2 (09:20→21:49)
[2021-08-17] MEDS: NYSTATIN POWDER 15 GM TOP SCH (09:21)
[2021-08-17] MEDS: DOCUSATE SODIUM 250 MG CAPSULE PO SCH (09:22)
[2021-08-17] MEDS: SODIUM CHLORIDE FLUSH 0.9% 10 ML SYRINGE IVP PRN ×3 (09:24→18:58)
[2021-08-17] MEDS ORDERED: FUROSEMIDE 40 MG TABLET PO SCH ×2 (09:37→17:04)
[2021-08-17] MEDS: TAMSULOSIN 0.4 MG CAPSULE PO SCH (10:00)
--- NOTE | 2021-08-17 11:24 | PROVIDER PROGRESS NOTE ---
Assessment/Plan - Problem List (1) Acute on chronic respiratory failure with hypoxia and hypercapnia Assessment/Plan: Patient reports feeling better this morning after resting on BiPap. Denies dyspnea at rest but continues to have dyspnea with activity. Able to converse with full sentences on NC 4L/min without dyspnea. Faint bibasilar rales. Patient has history of obesity hypoventilation syndrome and obstructive sleep apnea. Baseline he is on home O2 at 4L/min in addition to BiPAP at night which he is non-compliant. 08/16/21 ABG with pCO2 of 70, improved from prior pCO2 82. Serum CO2 is 40 today which is likely chronic. CO2 trends from previous admission in December 2020 were 37 to >45. Patient is alert and oriented x4 today. Plan: Continue BiPAP qhs. Continue daytime O2 at 4L/min as per baseline. Increased Lasix to BID. Repeat labs tomorrow. (2) CO2 narcosis Assessment/Plan: Last ABG 08/16/21 with CO2 of 70, improved from prior pCO2 82. Serum CO2 is 40 today which is likely chronic. CO2 trends from previous admission in December 2020 were 37 to >45. Patient is alert and oriented x4 today. Plan: Continue BiPap at night. (3) Chronic venous stasis dermatitis of both lower extremities Assessment/Plan: Bilateral pedal edema 3+ that extends up to mid abdomen. Scaly plaques and hyperpigmentation noted to bilateral lower extremities consistent with chronic venous stasis. Plan: Keep lower extremity wrapped with Jon wrap compressions and elevate as tolerated. Lasix increased form 40 mg p.o. daily to twice daily today. (4) Mild aortic stenosis Assessment/Plan: Grade 3/6 holosystolic murmur at right sternal border. 2D echocardiogram done January 13, 2021 showed mild aortic stenosis with mean gradient 25mmHg. Denies dizziness, syncope, or exertional angina. Plan: Will not repeat echocardiogram at the moment. Resume home Losartan 100mg daily to decrease cardiac afterload. (5) YONATAN on CPAP Assessment/Plan: Patient has history of YONATAN with CPAP at night, which he was non-compliant with. This morning he reports feeling better after resting on BiPap. Plan: Continue BiPAP qhs. Plan for discharge to halfway care facility for medical management and compliance. (6) Obesity hypoventilation syndrome Assessment/Plan: Patient has history of obesity hypoventilation syndrome and obstructive sleep apnea. At baseline he is on home O2 at 4L/min. He is also instructed to be on BiPAP nightly, which he is non-compliant. Plan: Continue BiPAP qhs. Continue daytime O2 at 4L/min as per baseline. Continue with PT to increase activity tolerance. (7) Controlled type 2 diabetes mellitus without complication, with long-term current use of insulin Assessment/Plan: History of type 2 Diabetes Mellitus. Admission A1C 6.7. Controlled outpatient with Metformin 1000mg BID, Aspart Insulin 4 units TID with meals, Glargine 30 units BID, and Empagliflozin 12.5 daily. Bedside glucose is ranging 110s-200s. On sliding scale Aspart Insulin in addition to 4 units of meal coverage. He is also receiving Lantus 15 units subcu twice daily. Plan: Continue Accu-Checks before meals and bedtime. Continue with Lantus 15 units in am and pm. Continue with basal Aspart insulin and additional sliding scale. (8) Self neglect Assessment/Plan: Patient is agreeable to finding alternative living situation due to limited ability to care for himself. He would like to be transferred to [facility] but initial attempts have been unsuccessful due to bed availability. Plan: care worker to continue assisting in disposition/placement - Current Meds Current Meds: Current Medications Generic Name Dose Route Start Last Admin Trade Name Selina PRN Reason Stop Dose Admin Docusate Sodium 250 - 500 mg 08/14/21 09:00 08/17/21 09:22 Docusate Sodium 250 Mg Capsule PO 250 mg DAILY JAYNA Administration Enoxaparin Sodium 40 mg 08/13/21 09:00 08/17/21 09:20 Enoxaparin 40 Mg/0.4 Ml Syringe SUBQ 40 mg BID JAYNA Administration Insulin Aspart 1 - 5 unit 08/13/21 21:00 08/17/21 07:54 Insulin Aspart 300 Unit/3 Ml Pen SUBQ 1 unit 0800,1200,1700,2100 JAYNA Administration Protocol Insulin Aspart 4 unit 08/16/21 08:00 08/17/21 07:55 Insulin Aspart 300 Unit/3 Ml Pen SUBQ 4 unit TIDWM JAYNA Administration Insulin Glargine 15 unit 08/12/21 18:00 08/17/21 06:15 Insulin Glargine 300 Unit/3 Ml Pen SUBQ 15 unit 0600,1800 JAYNA Administration Nystatin 1 applic 08/16/21 21:00 08/17/21 09:21 Nystatin Powder 15 Gm TOP 1 applic BID JAYNA Administration Oxycodone HCl 5 mg 08/12/21 10:28 08/15/21 05:07 Oxycodone 5 Mg Tablet PO 5 mg Q4HR PRN Administration Pain 5 to 7 Polyethylene Glycol 17 gm 08/16/21 17:04 08/17/21 09:16 Polyethylene Glycol 3350 17 Gm Packet PO 17 gm DAILY JAYNA Administration Senna 8.6 - 17.2 mg 08/14/21 09:00 08/17/21 09:17 Senna 8.6 Mg Tablet PO 8.6 mg DAILY JAYNA Administration Sertraline HCl 200 mg 08/13/21 21:00 08/17/21 09:18 Sertraline 50 Mg Tablet PO 200 mg DAILY JAYNA Administration Sodium Chloride 10 ml 08/12/21 10:28 08/17/21 09:25 Sodium Chloride Flush 0.9% 10 Ml Syringe IVP 10 ml PRN PRN Administration NEEDED PER PROVIDER ORDERS Tamsulosin HCl 0.4 mg 08/13/21 09:00 08/16/21 10:01 Tamsulosin 0.4 Mg Capsule PO 0.4 mg DAILY JAYNA Administration - Lab Result Fish Bone Diagrams: 08/17/21 04:12 08/17/21 04:12 - EKG Results EKG Interpreted Independently: Yes EKG Comparison: Unchanged from prior EKG <Bambi Infante - Last Filed: 08/17/21 17:14> - Current Meds Current Meds: Current Medications Generic Name Dose Route Start Last Admin Trade Name Freq PRN Reason Stop Dose Admin Docusate Sodium 250 - 500 mg 08/14/21 09:00 08/17/21 09:22 Docusate Sodium 250 Mg Capsule PO 250 mg DAILY JAYNA Administration Enoxaparin Sodium 40 mg 08/13/21 09:00 08/17/21 09:20 Enoxaparin 40 Mg/0.4 Ml Syringe SUBQ 40 mg BID JAYNA Administration Insulin Aspart 1 - 5 unit 08/13/21 21:00 08/17/21 17:04 Insulin Aspart 300 Unit/3 Ml Pen SUBQ 1 unit 0800,1200,1700,2100 JAYNA Administration Protocol Insulin Aspart 4 unit 08/16/21 08:00 08/17/21 17:05 Insulin Aspart 300 Unit/3 Ml Pen SUBQ 4 unit TIDWM JAYNA Administration Insulin Glargine 15 unit 08/12/21 18:00 08/17/21 17:06 Insulin Glargine 300 Unit/3 Ml Pen SUBQ 15 unit 0600,1800 JAYNA Administration Nystatin 1 applic 08/16/21 21:00 08/17/21 09:21 Nystatin Powder 15 Gm TOP 1 applic BID JAYNA Administration Oxycodone HCl 5 mg 08/12/21 10:28 08/15/21 05:07 Oxycodone 5 Mg Tablet PO 5 mg Q4HR PRN Administration Pain 5 to 7 Polyethylene Glycol 17 gm 08/16/21 17:04 08/17/21 09:16 Polyethylene Glycol 3350 17 Gm Packet PO 17 gm DAILY JAYNA Administration Senna 8.6 - 17.2 mg 08/14/21 09:00 08/17/21 09:17 Senna 8.6 Mg Tablet PO 8.6 mg DAILY JAYNA Administration Sertraline HCl 200 mg 08/13/21 21:00 08/17/21 09:18 Sertraline 50 Mg Tablet PO 200 mg DAILY JAYNA Administration Sodium Chloride 10 ml 08/12/21 10:28 08/17/21 09:25 Sodium Chloride Flush 0.9% 10 Ml Syringe IVP 10 ml PRN PRN Administration NEEDED PER PROVIDER ORDERS Tamsulosin HCl 0.4 mg 08/13/21 09:00 08/17/21 10:00 Tamsulosin 0.4 Mg Capsule PO 0.4 mg DAILY JAYNA Administration - Lab Result Fish Bone Diagrams: 08/17/21 04:12 08/17/21 04:12 - Additional Planning My Orders: My Active Orders 08/16/21 21:00 Nystatin [Nystop] 1 applic TOP BID 08/17/21 21:00 Atorvastatin [Lipitor] 80 mg PO QPM 08/18/21 09:00 Losartan [Cozaar] 100 mg PO DAILY Additional Planning Notes: Attestation: I attest that the patient was seen and examined by me with a separate encounter after being seen by AG ACNP student. I reviewed the student's documentation including patient history, physical examination, laboratory, imaging, clinical assessment and treatment plan. I have discussed the management of the patient with the student, with the patient, and there are no changes. <KristopheradriankrzysztofEsequiel - Last Filed: 08/17/21 17:17> Subjective - Subjective Patient Reports: Feeling Better, Resting Comfortably (Patient reports sleeping better last night and woke up feeling well rested. Would like to work with PT to start ambulating more espeicially in his room.) <NareshBambi - Last Filed: 08/17/21 17:14> Objective Vital Signs: Vital Signs - 24 hr 08/16/21 08/16/21 08/16/21 12:49 15:47 15:53 Temperature 37.0 C 37.1 C Heart Rate Heart Rate [ 88 72 68 Monitoring electrodes] Respiratory 23 23 25 H Rate Blood Pressure 147/73 H 136/60 H 136/60 H [Left Brachial artery] O2 Saturation 93 98 96 08/16/21 08/16/21 08/16/21 16:00 17:00 21:00 Temperature Heart Rate Heart Rate [ 71 90 84 Monitoring electrodes] Respiratory 20 16 27 H Rate Blood Pressure 138/69 H 134/50 H 147/63 H [Left Brachial artery] O2 Saturation 96 96 92 08/16/21 08/17/21 08/17/21 22:00 01:00 01:35 Temperature Heart Rate 77 56 L Heart Rate [ 59 L Monitoring electrodes] Respiratory 18 Rate Blood Pressure 163/93 H [Left Brachial artery] O2 Saturation 97 08/17/21 08/17/21 08/17/21 05:00 05:50 09:00 Temperature 36.8 C Heart Rate 57 L Heart Rate [ 62 68 Monitoring electrodes] Respiratory 20 20 Rate Blood Pressure 144/70 H [Left Brachial artery] O2 Saturation 94 Oxygen O2 Source BIPAP Oxygen Flow Rate 4 I&O (Last 24 Hrs): Intake and Output Totals x24h 08/15/21 08/16/21 08/17/21 23:59 23:59 23:59 Intake Total 1310 1767 250 Output Total 1351 1615 Balance -41 152 250 General: Alert, Oriented x3, Cooperative, No acute distress HEENT: Mucous membr. moist/pink Neuro: Alert, Oriented Times 3 Cardiovascular: Regular rate, Other (3/6 holosystolic murmur right sternal border) Respiratory: No respiratory distress, Rales, Other (Faint bibasilar crackles) Abdomen: Normal bowel sounds Extremities: Other (bilateral pedial edema 3+ that extendes up to lower abdomen) Comments/Notes: hyperpigmentation, with scaly plaques to bilateral lower legs with - Results Results: Laboratory Results WBC 5.3 x10^3/uL (4.8-10.8) 08/17/21 04:12 RBC 5.37 10^6/uL (4.70-6.10) 08/17/21 04:12 Hgb 12.8 g/dL (14.0-18.0) L 08/17/21 04:12 Hct 46.7 % (42.0-52.0) 08/17/21 04:12 MCV 87.0 fL (80.0-94.0) 08/17/21 04:12 MCH 23.8 pg (27.0-31.0) L 08/17/21 04:12 MCHC 27.4 g/dL (32.0-36.0) L 08/17/21 04:12 RDW 16.3 % (12.0-15.0) H 08/17/21 04:12 Plt Count 182 10^3/uL (130-450) 08/17/21 04:12 MPV 10.8 fL (7.4-11.4) 08/17/21 04:12 Neut # (Auto) 3.7 10^3/uL (1.5-6.6) 08/17/21 04:12 Lymph # (Auto) 1.0 10^3/uL (1.5-3.5) L 08/17/21 04:12 Wise # (Auto) 0.4 10^3/uL (0.0-1.0) 08/17/21 04:12 Eos # (Auto) 0.1 10^3/uL (0.0-0.7) 08/17/21 04:12 Baso # (Auto) 0.0 10^3/uL (0.0-0.1) 08/17/21 04:12 Absolute Nucleated RBC 0.00 x10^3/uL 08/17/21 04:12 Nucleated RBC % 0.0 /100WBC 08/17/21 04:12 Manual Slide Review Indicated 08/16/21 04:41 WBC Morphology NORMAL APPEARANCE (NORMAL) 08/16/21 04:41 Platelet Estimate NORMAL (130-450,000) (NORMAL) 08/16/21 04:41 Platelet Morphology NORMAL APPEARANCE (NORMAL) 08/16/21 04:41 RBC Morph Micro Appear 1+ HYPOCHROMASIA (NORMAL) 08/16/21 04:41 Bld Gas Analysis Time 0745 08/16/21 07:40 Sample Site LEFT RADIAL 08/16/21 07:40 ABG pH 7.38 (7.35-7.45) 08/16/21 07:40 ABG pCO2 70 mmHg (34-45) H* 08/16/21 07:40 ABG pO2 85 mmHg (80-100) 08/16/21 07:40 ABG HCO3 40.7 mmol/L (22.0-26.0) H 08/16/21 07:40 ABG Total CO2 42.9 MMOL/L (21.0-29.0) H* 08/16/21 07:40 ABG O2 Saturation 97 % (94-98) 08/16/21 07:40 ABG Base Excess 12.5 mmol/L (-2.0-3.0) H 08/16/21 07:40 Reynaldo Test POSITIVE 08/16/21 07:40 VBG pH 7.170 (7.31-7.41) L 08/12/21 11:22 VBG pCO2 102.1 mmHg (41-51) H 08/12/21 11:22 VBG pO2 85.8 mmHg (25-47) H 08/12/21 11:22 VBG HCO3 36.4 mmol/L (23-28) H 08/12/21 11:22 VBG Total CO2 39.5 mmol/L (24-29) H 08/12/21 11:22 VBG O2 Saturation 95.4 % (60-80) H 08/12/21 11:22 VBG Base Excess 3.6 mmol/L (-2 - +2) H 08/12/21 11:22 Respiration Rate 15 b/min 08/16/21 07:40 O2 Delivery Device BiPAP 08/16/21 07:40 Vent Mode SYNCHRONOUS/TIMES 08/12/21 18:15 FiO2 35.00 08/16/21 07:40 Pressure Support Vent 3 cmH2O 08/12/21 18:15 EPAP 8 cmH2O 08/16/21 07:40 IPAP 16 cmH2O 08/16/21 07:40 Sodium 138 mmol/L (135-145) 08/17/21 04:12 Potassium 4.5 mmol/L (3.5-5.0) 08/17/21 04:12 Chloride 91 mmol/L (101-111) L 08/17/21 04:12 Carbon Dioxide 40 mmol/L (21-32) H* 08/17/21 04:12 Anion Gap 7.0 (6-13) 08/17/21 04:12 BUN 23 mg/dL (6-20) H 08/17/21 04:12 Creatinine 0.6 mg/dL (0.6-1.2) 08/17/21 04:12 Estimated GFR (MDRD) 134 (>89) 08/17/21 04:12 Glucose 162 mg/dL (70-100) H 08/17/21 04:12 POC Whole Bld Glucose 152 mg/dL (70 - 100) H 08/17/21 07:52 Estimat Average Glucose 146 mg/dL (70-100) H 08/13/21 14:53 Hemoglobin A1c % 6.7 % (4.27-6.07) H 08/13/21 14:53 Calcium 8.8 mg/dL (8.5-10.3) 08/17/21 04:12 Total Bilirubin 0.6 mg/dL (0.2-1.0) 08/12/21 08:40 AST 14 IU/L (10-42) 08/12/21 08:40 ALT 15 IU/L (10-60) 08/12/21 08:40 Alkaline Phosphatase 119 IU/L (42-121) 08/12/21 08:40 Troponin I High Sens 27.4 ng/L (2.3-19.7) H* 08/12/21 11:22 B-Natriuretic Peptide 161 pg/mL (5-100) H 08/12/21 08:40 Total Protein 7.2 g/dL (6.7-8.2) 08/12/21 08:40 Albumin 3.2 g/dL (3.2-5.5) 08/12/21 08:40 Globulin 4.0 g/dL (2.1-4.2) 08/12/21 08:40 Albumin/Globulin Ratio 0.8 (1.0-2.2) L 08/12/21 08:40 Lipase 30 U/L (22-51) 08/12/21 08:40 Nasal Adenovirus (PCR) NOT DETECTED 08/12/21 08:40 Nasal B. parapertussis DNA (PCR) NOT DETECTED 08/12/21 08:40 Nasal Coronavir 229E PCR NOT DETECTED 08/12/21 08:40 Nasal Coronavir HKU1 PCR NOT DETECTED 08/12/21 08:40 Nasal Coronavir NL63 PCR NOT DETECTED 08/12/21 08:40 Nasal Coronavir OC43 PCR NOT DETECTED 08/12/21 08:40 Nasal Enterovir/Rhinovir PCR NOT DETECTED 08/12/21 08:40 Nasal Influenza B PCR NOT DETECTED 08/12/21 08:40 Nasal Influenza A PCR NOT DETECTED 08/12/21 08:40 Nasal Parainfluen 1 PCR NOT DETECTED 08/12/21 08:40 Nasal Parainfluen 2 PCR NOT DETECTED 08/12/21 08:40 Nasal Parainfluen 3 PCR NOT DETECTED 08/12/21 08:40 Nasal Parainfluen 4 PCR NOT DETECTED 08/12/21 08:40 Nasal RSV (PCR) NOT DETECTED 08/12/21 08:40 Nasal Screen MRSA (PCR) NEGATIVE (NEGATIVE) 08/12/21 14:00 Nasal B.pertussis DNA PCR NOT DETECTED 08/12/21 08:40 Nasal C.pneumoniae (PCR) NOT DETECTED 08/12/21 08:40 Armando Human Metapneumo PCR NOT DETECTED 08/12/21 08:40 Nasal M.pneumoniae (PCR) NOT DETECTED 08/12/21 08:40 Nasal SARS-CoV-2 (PCR) NOT DETECTED 08/12/21 08:40 - Procedures Procedures: Procedures ENDOSC POLYPECTOMY OF LG INTEST (02/27/14) <Bambi Infante - Last Filed: 08/17/21 17:14> Vital Signs: Vital Signs - 24 hr 08/16/21 08/16/21 08/17/21 21:00 22:00 01:00 Temperature Heart Rate 77 Heart Rate [ 84 59 L Monitoring electrodes] Respiratory 27 H 18 Rate Blood Pressure 147/63 H 163/93 H [Left Brachial artery] O2 Saturation 92 97 08/17/21 08/17/21 08/17/21 01:35 05:00 05:50 Temperature Heart Rate 56 L 57 L Heart Rate [ 62 Monitoring electrodes] Respiratory 20 Rate Blood Pressure 144/70 H [Left Brachial artery] O2 Saturation 94 08/17/21 08/17/21 08/17/21 09:00 12:00 16:57 Temperature 36.8 C 36.9 C 36.8 C Heart Rate Heart Rate [ 68 79 73 Monitoring electrodes] Respiratory 20 23 25 H Rate Blood Pressure 137/93 H 141/73 H [Left Brachial artery] O2 Saturation 94 97 Oxygen O2 Source Nasal cannula Oxygen Flow Rate 4 I&O (Last 24 Hrs): Intake and Output Totals x24h 08/15/21 08/16/21 08/17/21 23:59 23:59 23:59 Intake Total 1310 1767 765 Output Total 1351 1615 520 Balance -41 152 245 - Results Results: Laboratory Results WBC 5.3 x10^3/uL (4.8-10.8) 08/17/21 04:12 RBC 5.37 10^6/uL (4.70-6.10) 08/17/21 04:12 Hgb 12.8 g/dL (14.0-18.0) L 08/17/21 04:12 Hct 46.7 % (42.0-52.0) 08/17/21 04:12 MCV 87.0 fL (80.0-94.0) 08/17/21 04:12 MCH 23.8 pg (27.0-31.0) L 08/17/21 04:12 MCHC 27.4 g/dL (32.0-36.0) L 08/17/21 04:12 RDW 16.3 % (12.0-15.0) H 08/17/21 04:12 Plt Count 182 10^3/uL (130-450) 08/17/21 04:12 MPV 10.8 fL (7.4-11.4) 08/17/21 04:12 Neut # (Auto) 3.7 10^3/uL (1.5-6.6) 08/17/21 04:12 Lymph # (Auto) 1.0 10^3/uL (1.5-3.5) L 08/17/21 04:12 Wise # (Auto) 0.4 10^3/uL (0.0-1.0) 08/17/21 04:12 Eos # (Auto) 0.1 10^3/uL (0.0-0.7) 08/17/21 04:12 Baso # (Auto) 0.0 10^3/uL (0.0-0.1) 08/17/21 04:12 Absolute Nucleated RBC 0.00 x10^3/uL 08/17/21 04:12 Nucleated RBC % 0.0 /100WBC 08/17/21 04:12 Manual Slide Review Indicated 08/16/21 04:41 WBC Morphology NORMAL APPEARANCE (NORMAL) 08/16/21 04:41 Platelet Estimate NORMAL (130-450,000) (NORMAL) 08/16/21 04:41 Platelet Morphology NORMAL APPEARANCE (NORMAL) 08/16/21 04:41 RBC Morph Micro Appear 1+ HYPOCHROMASIA (NORMAL) 08/16/21 04:41 Bld Gas Analysis Time 0745 08/16/21 07:40 Sample Site LEFT RADIAL 08/16/21 07:40 ABG pH 7.38 (7.35-7.45) 08/16/21 07:40 ABG pCO2 70 mmHg (34-45) H* 08/16/21 07:40 ABG pO2 85 mmHg (80-100) 08/16/21 07:40 ABG HCO3 40.7 mmol/L (22.0-26.0) H 08/16/21 07:40 ABG Total CO2 42.9 MMOL/L (21.0-29.0) H* 08/16/21 07:40 ABG O2 Saturation 97 % (94-98) 08/16/21 07:40 ABG Base Excess 12.5 mmol/L (-2.0-3.0) H 08/16/21 07:40 Reynaldo Test POSITIVE 08/16/21 07:40 VBG pH 7.170 (7.31-7.41) L 08/12/21 11:22 VBG pCO2 102.1 mmHg (41-51) H 08/12/21 11:22 VBG pO2 85.8 mmHg (25-47) H 08/12/21 11:22 VBG HCO3 36.4 mmol/L (23-28) H 08/12/21 11:22 VBG Total CO2 39.5 mmol/L (24-29) H 08/12/21 11:22 VBG O2 Saturation 95.4 % (60-80) H 08/12/21 11:22 VBG Base Excess 3.6 mmol/L (-2 - +2) H 08/12/21 11:22 Respiration Rate 15 b/min 08/16/21 07:40 O2 Delivery Device BiPAP 08/16/21 07:40 Vent Mode SYNCHRONOUS/TIMES 08/12/21 18:15 FiO2 35.00 08/16/21 07:40 Pressure Support Vent 3 cmH2O 08/12/21 18:15 EPAP 8 cmH2O 08/16/21 07:40 IPAP 16 cmH2O 08/16/21 07:40 Sodium 138 mmol/L (135-145) 08/17/21 04:12 Potassium 4.5 mmol/L (3.5-5.0) 08/17/21 04:12 Chloride 91 mmol/L (101-111) L 08/17/21 04:12 Carbon Dioxide 40 mmol/L (21-32) H* 08/17/21 04:12 Anion Gap 7.0 (6-13) 08/17/21 04:12 BUN 23 mg/dL (6-20) H 08/17/21 04:12 Creatinine 0.6 mg/dL (0.6-1.2) 08/17/21 04:12 Estimated GFR (MDRD) 134 (>89) 08/17/21 04:12 Glucose 162 mg/dL (70-100) H 08/17/21 04:12 POC Whole Bld Glucose 164 mg/dL (70 - 100) H 08/17/21 16:54 Estimat Average Glucose 146 mg/dL (70-100) H 08/13/21 14:53 Hemoglobin A1c % 6.7 % (4.27-6.07) H 08/13/21 14:53 Calcium 8.8 mg/dL (8.5-10.3) 08/17/21 04:12 Total Bilirubin 0.6 mg/dL (0.2-1.0) 08/12/21 08:40 AST 14 IU/L (10-42) 08/12/21 08:40 ALT 15 IU/L (10-60) 08/12/21 08:40 Alkaline Phosphatase 119 IU/L (42-121) 08/12/21 08:40 Troponin I High Sens 27.4 ng/L (2.3-19.7) H* 08/12/21 11:22 B-Natriuretic Peptide 161 pg/mL (5-100) H 08/12/21 08:40 Total Protein 7.2 g/dL (6.7-8.2) 08/12/21 08:40 Albumin 3.2 g/dL (3.2-5.5) 08/12/21 08:40 Globulin 4.0 g/dL (2.1-4.2) 08/12/21 08:40 Albumin/Globulin Ratio 0.8 (1.0-2.2) L 08/12/21 08:40 Lipase 30 U/L (22-51) 08/12/21 08:40 Nasal Adenovirus (PCR) NOT DETECTED 08/12/21 08:40 Nasal B. parapertussis DNA (PCR) NOT DETECTED 08/12/21 08:40 Nasal Coronavir 229E PCR NOT DETECTED 08/12/21 08:40 Nasal Coronavir HKU1 PCR NOT DETECTED 08/12/21 08:40 Nasal Coronavir NL63 PCR NOT DETECTED 08/12/21 08:40 Nasal Coronavir OC43 PCR NOT DETECTED 08/12/21 08:40 Nasal Enterovir/Rhinovir PCR NOT DETECTED 08/12/21 08:40 Nasal Influenza B PCR NOT DETECTED 08/12/21 08:40 Nasal Influenza A PCR NOT DETECTED 08/12/21 08:40 Nasal Parainfluen 1 PCR NOT DETECTED 08/12/21 08:40 Nasal Parainfluen 2 PCR NOT DETECTED 08/12/21 08:40 Nasal Parainfluen 3 PCR NOT DETECTED 08/12/21 08:40 Nasal Parainfluen 4 PCR NOT DETECTED 08/12/21 08:40 Nasal RSV (PCR) NOT DETECTED 08/12/21 08:40 Nasal Screen MRSA (PCR) NEGATIVE (NEGATIVE) 08/12/21 14:00 Nasal B.pertussis DNA PCR NOT DETECTED 08/12/21 08:40 Nasal C.pneumoniae (PCR) NOT DETECTED 08/12/21 08:40 Armando Human Metapneumo PCR NOT DETECTED 08/12/21 08:40 Nasal M.pneumoniae (PCR) NOT DETECTED 08/12/21 08:40 Nasal SARS-CoV-2 (PCR) NOT DETECTED 08/12/21 08:40 - Procedures Procedures: Procedures ENDOSC POLYPECTOMY OF LG INTEST (02/27/14) <Esequiel Stokes - Last Filed: 08/17/21 17:17> ABX Reporting Has patient been on IV antibiotics over the past 48 hours?: No <Bambi Infante - Last Filed: 08/17/21 17:14>
[2021-08-17] MEDS: ATORVASTATIN 40 MG TABLET PO SCH (21:38)
[2021-08-18] MEDS: NYSTATIN POWDER 15 GM TOP SCH ×3 (02:22→20:38)
[2021-08-18 05:05] LABS: BASOPHILS % (AUTO) 0.2 %; EOSINOPHILS # (AUTO) 0.2 10^3/uL (0.0-0.7); HCT - HEMATOCRIT 46.2 % (42.0-52.0); HGB - HEMOGLOBIN 12.2 g/dL (14.0-18.0); LYMPHOCYTES # (AUTO) 0.9 10^3/uL (1.5-3.5); LYMPHOCYTES % (AUTO) 16.6 %; MEAN CORPUSCULAR HEMOGLOBIN 23.4 pg (27.0-31.0); MEAN CORPUSCULAR HGB CONC 26.4 g/dL (32.0-36.0); MEAN CORPUSCULAR VOLUME 88.5 fL (80.0-94.0); MEAN PLATELET VOLUME 9.9 fL (7.4-11.4); MONOCYTES # (AUTO) 0.4 10^3/uL (0.0-1.0); MONOCYTES % (AUTO) 7.9 %; NEUTROPHILS # (AUTO) 3.8 10^3/uL (1.5-6.6); NEUTROPHILS % (AUTO) 71.9 %; PLT - PLATELET COUNT 173 10^3/uL (130-450); RED BLOOD COUNT 5.22 10^6/uL (4.70-6.10); RED CELL DISTRIBUTION WIDTH 16.4 % (12.0-15.0); WHITE BLOOD COUNT 5.3 x10^3/uL (4.8-10.8)
[2021-08-18 05:10] LABS: CREATININE 0.7 mg/dL (0.6-1.2); POTASSIUM 4.4 mmol/L (3.5-5.0)
[2021-08-18] MEDS: FUROSEMIDE 40 MG TABLET PO SCH ×2 (06:53→14:17)
[2021-08-18] MEDS: INSULIN GLARGINE 300 UNIT/3 ML PEN SUBQ SCH ×2 (06:53→18:26)
--- NOTE | 2021-08-18 07:20 | PROVIDER PROGRESS NOTE ---
Assessment/Plan - Problem List (1) Acute on chronic respiratory failure with hypoxia and hypercapnia Assessment/Plan: ABG this morning showed pH 7.34, PCO2 89, PO2 71 and bicarb 47.3. We will place patient on BiPAP during the day today. Patient remains alert and oriented X4 Continue lasix 40mg po bid (2) CO2 narcosis Assessment/Plan: ABG this morning showed pH 7.34, PCO2 89, PO2 71 and bicarb 47.3. We will place patient on BiPAP during the day today. Patient remains alert and oriented X4 Continue lasix 40mg po bid (3) Chronic venous stasis dermatitis of both lower extremities Assessment/Plan: Continue to wrap lower extremities with Jon wrap compressions and elevate legs. Continue Lasix 40 mg p.o. twice daily. (5) YONATAN on CPAP Assessment/Plan: On BiPAP nightly. BiPAP also used today during the day because of a PCO2 of 89 (6) Obesity hypoventilation syndrome Assessment/Plan: On BiPAP nightly. BiPAP also used today during the day because of a PCO2 of 89 (7) Controlled type 2 diabetes mellitus without complication, with long-term current use of insulin Assessment/Plan: Lantus 15 units twice daily Acuc checks qAC and HS, sliding scale insulin (8) Self neglect Assessment/Plan: Social work/case management continues to assist in placement. To date the attempts have been unsuccessful. We will continue to try. - Current Meds Current Meds: Current Medications Generic Name Dose Route Start Last Admin Trade Name Selina PRN Reason Stop Dose Admin Atorvastatin Calcium 80 mg 08/17/21 21:00 08/17/21 21:38 Atorvastatin 40 Mg Tablet PO 80 mg QPM JAYNA Administration Docusate Sodium 250 - 500 mg 08/14/21 09:00 08/17/21 09:22 Docusate Sodium 250 Mg Capsule PO 250 mg DAILY JAYNA Administration Enoxaparin Sodium 40 mg 08/13/21 09:00 08/17/21 21:49 Enoxaparin 40 Mg/0.4 Ml Syringe SUBQ 40 mg BID JAYNA Administration Furosemide 40 mg 08/17/21 18:00 08/18/21 06:53 Furosemide 40 Mg Tablet PO 40 mg BIDDIURETIC JAYNA Administration Insulin Aspart 1 - 5 unit 08/13/21 21:00 08/17/21 21:28 Insulin Aspart 300 Unit/3 Ml Pen SUBQ 3 unit 0800,1200,1700,2100 JAYNA Administration Protocol Insulin Aspart 4 unit 08/16/21 08:00 08/17/21 17:05 Insulin Aspart 300 Unit/3 Ml Pen SUBQ 4 unit TIDWM JAYNA Administration Insulin Glargine 15 unit 08/12/21 18:00 08/18/21 06:53 Insulin Glargine 300 Unit/3 Ml Pen SUBQ 15 unit 0600,1800 JAYNA Administration Nystatin 1 applic 08/16/21 21:00 08/18/21 02:22 Nystatin Powder 15 Gm TOP Not Given BID JAYNA Oxycodone HCl 5 mg 08/12/21 10:28 08/15/21 05:07 Oxycodone 5 Mg Tablet PO 5 mg Q4HR PRN Administration Pain 5 to 7 Polyethylene Glycol 17 gm 08/16/21 17:04 08/17/21 09:16 Polyethylene Glycol 3350 17 Gm Packet PO 17 gm DAILY JAYNA Administration Senna 8.6 - 17.2 mg 08/14/21 09:00 08/17/21 09:17 Senna 8.6 Mg Tablet PO 8.6 mg DAILY JAYNA Administration Sertraline HCl 200 mg 08/13/21 21:00 08/17/21 09:18 Sertraline 50 Mg Tablet PO 200 mg DAILY JAYNA Administration Sodium Chloride 10 ml 08/12/21 10:28 08/17/21 18:58 Sodium Chloride Flush 0.9% 10 Ml Syringe IVP 10 ml PRN PRN Administration NEEDED PER PROVIDER ORDERS Tamsulosin HCl 0.4 mg 08/13/21 09:00 08/17/21 10:00 Tamsulosin 0.4 Mg Capsule PO 0.4 mg DAILY JAYNA Administration - Lab Result Fish Bone Diagrams: 08/18/21 04:04 08/18/21 04:04 - Additional Planning My Orders: My Active Orders 08/17/21 21:00 Atorvastatin [Lipitor] 80 mg PO QPM 08/18/21 07:19 RT - Obtain Arterial Specimen [RC] .ONCE ABG - ARTERIAL BLOOD GAS [BG] Routine 08/18/21 09:00 Losartan [Cozaar] 100 mg PO DAILY Subjective - Subjective Patient Reports: Other (Resting comfortably in bed. Denies any complains) Objective Vital Signs: Vital Signs - 24 hr 08/17/21 08/17/2108/17/21 09:00 12:00 16:57 Temperature 36.8 C 36.9 C 36.8 C Heart Rate Heart Rate [ 68 79 73 Monitoring electrodes] Respiratory 20 23 25 H Rate Blood Pressure 137/93 H 141/73 H [Left Brachial artery] O2 Saturation 94 97 08/17/21 08/17/21 08/18/21 21:00 22:54 01:00 Temperature 36.7 C Heart Rate 57 L Heart Rate [ 73 55 L Monitoring electrodes] Respiratory 23 16 Rate Blood Pressure 145/68 H [Left Brachial artery] O2 Saturation 97 98 08/18/21 08/18/21 03:34 05:00 Temperature Heart Rate 58 L Heart Rate [ 68 Monitoring electrodes] Respiratory 25 H Rate Blood Pressure 143/62 H [Left Brachial artery] O2 Saturation 96 Oxygen O2 Source Nasal cannula Oxygen Flow Rate 4 I&O (Last 24 Hrs): Intake and Output Totals x24h 08/16/21 08/17/21 08/18/21 23:59 23:59 23:59 Intake Total 1767 765 705 Output Total 1615 845 450 Balance 152 -80 255 General: Alert, Oriented x3, No acute distress HEENT: PERRLA, EOMI Neck: Supple, No JVD Neuro: Alert, Oriented Times 3 Cardiovascular: Regular rate Respiratory: Chest non-tender, No respiratory distress, Other (Diminished breath sounds due to body habitus) Abdomen: Normal bowel sounds, Soft, No tenderness, No masses Extremities: Other (Dry scaly skin. Venostasis changes) Skin: No rashes - Results Results: Laboratory Results WBC 5.3 x10^3/uL (4.8-10.8) 08/18/21 04:04 RBC 5.22 10^6/uL (4.70-6.10) 08/18/21 04:04 Hgb 12.2 g/dL (14.0-18.0) L 08/18/21 04:04 Hct 46.2 % (42.0-52.0) 08/18/21 04:04 MCV 88.5 fL (80.0-94.0) 08/18/21 04:04 MCH 23.4 pg (27.0-31.0) L 08/18/21 04:04 MCHC 26.4 g/dL (32.0-36.0) L 08/18/21 04:04 RDW 16.4 % (12.0-15.0) H 08/18/21 04:04 Plt Count 173 10^3/uL (130-450) 08/18/21 04:04 MPV 9.9 fL (7.4-11.4) 08/18/21 04:04 Neut # (Auto) 3.8 10^3/uL (1.5-6.6) 08/18/21 04:04 Lymph # (Auto) 0.9 10^3/uL (1.5-3.5) L 08/18/21 04:04 [place] # (Auto) 0.4 10^3/uL (0.0-1.0) 08/18/21 04:04 Eos # (Auto) 0.2 10^3/uL (0.0-0.7) 08/18/21 04:04 Baso # (Auto) 0.0 10^3/uL (0.0-0.1) 08/18/21 04:04 Absolute Nucleated RBC 0.00 x10^3/uL 08/18/21 04:04 Nucleated RBC % 0.0 /100WBC 08/18/21 04:04 Manual Slide Review Indicated 08/16/21 04:41 WBC Morphology NORMAL APPEARANCE (NORMAL) 08/16/21 04:41 Platelet Estimate NORMAL (130-450,000) (NORMAL) 08/16/21 04:41 Platelet Morphology NORMAL APPEARANCE (NORMAL) 08/16/21 04:41 RBC Morph Micro Appear 1+ HYPOCHROMASIA (NORMAL) 08/16/21 04:41 Bld Gas Analysis Time 0745 08/16/21 07:40 Sample Site LEFT RADIAL 08/16/21 07:40 ABG pH 7.38 (7.35-7.45) 08/16/21 07:40 ABG pCO2 70 mmHg (34-45) H* 08/16/21 07:40 ABG pO2 85 mmHg (80-100) 08/16/21 07:40 ABG HCO3 40.7 mmol/L (22.0-26.0) H 08/16/21 07:40 ABG Total CO2 42.9 MMOL/L (21.0-29.0) H* 08/16/21 07:40 ABG O2 Saturation 97 % (94-98) 08/16/21 07:40 ABG Base Excess 12.5 mmol/L (-2.0-3.0) H 08/16/21 07:40 Reynaldo Test POSITIVE 08/16/21 07:40 VBG pH 7.170 (7.31-7.41) L 08/12/21 11:22 VBG pCO2 102.1 mmHg (41-51) H 08/12/21 11:22 VBG pO2 85.8 mmHg (25-47) H 08/12/21 11:22 VBG HCO3 36.4 mmol/L (23-28) H 08/12/21 11:22 VBG Total CO2 39.5 mmol/L (24-29) H 08/12/21 11:22 VBG O2 Saturation 95.4 % (60-80) H 08/12/21 11:22 VBG Base Excess 3.6 mmol/L (-2 - +2) H 08/12/21 11:22 Respiration Rate 15 b/min 08/16/21 07:40 O2 Delivery Device BiPAP 08/16/21 07:40 Vent Mode SYNCHRONOUS/TIMES 08/12/21 18:15 FiO2 35.00 08/16/21 07:40 Pressure Support Vent 3 cmH2O 08/12/21 18:15 EPAP 8 cmH2O 08/16/21 07:40 IPAP 16 cmH2O 08/16/21 07:40 Sodium 145 mmol/L (135-145) 08/18/21 04:04 Potassium 4.4 mmol/L (3.5-5.0) 08/18/21 04:04 Chloride 92 mmol/L (101-111) L 08/18/21 04:04 Carbon Dioxide 44 mmol/L (21-32) H* 08/18/21 04:04 Anion Gap 9.0 (6-13) 08/18/21 04:04 BUN 23 mg/dL (6-20) H 08/18/21 04:04 Creatinine 0.7 mg/dL (0.6-1.2) 08/18/21 04:04 Estimated GFR (MDRD) 112 (>89) 08/18/21 04:04 Glucose 238 mg/dL (70-100) H 08/18/21 04:04 POC Whole Bld Glucose 256 mg/dL (70 - 100) H 08/17/21 21:13 Estimat Average Glucose 146 mg/dL (70-100) H 08/13/21 14:53 Hemoglobin A1c % 6.7 % (4.27-6.07) H 08/13/21 14:53 Calcium 9.0 mg/dL (8.5-10.3) 08/18/21 04:04 Total Bilirubin 0.6 mg/dL (0.2-1.0) 08/12/21 08:40 AST 14 IU/L (10-42) 08/12/21 08:40 ALT 15 IU/L (10-60) 08/12/21 08:40 Alkaline Phosphatase 119 IU/L (42-121) 08/12/21 08:40 Troponin I High Sens 27.4 ng/L (2.3-19.7) H* 08/12/21 11:22 B-Natriuretic Peptide 161 pg/mL (5-100) H 08/12/21 08:40 Total Protein 7.2 g/dL (6.7-8.2) 08/12/21 08:40 Albumin 3.2 g/dL (3.2-5.5) 08/12/21 08:40 Globulin 4.0 g/dL (2.1-4.2) 08/12/21 08:40 Albumin/Globulin Ratio 0.8 (1.0-2.2) L 08/12/21 08:40 Lipase 30 U/L (22-51) 08/12/21 08:40 Nasal Adenovirus (PCR) NOT DETECTED 08/12/21 08:40 Nasal B. parapertussis DNA (PCR) NOT DETECTED 08/12/21 08:40 Nasal Coronavir 229E PCR NOT DETECTED 08/12/21 08:40 Nasal Coronavir HKU1 PCR NOT DETECTED 08/12/21 08:40 Nasal Coronavir NL63 PCR NOT DETECTED 08/12/21 08:40 Nasal Coronavir OC43 PCR NOT DETECTED 08/12/21 08:40 Nasal Enterovir/Rhinovir PCR NOT DETECTED 08/12/21 08:40 Nasal Influenza B PCR NOT DETECTED 08/12/21 08:40 Nasal Influenza A PCR NOT DETECTED 08/12/21 08:40 Nasal Parainfluen 1 PCR NOT DETECTED 08/12/21 08:40 Nasal Parainfluen 2 PCR NOT DETECTED 08/12/21 08:40 Nasal Parainfluen 3 PCR NOT DETECTED 08/12/21 08:40 Nasal Parainfluen 4 PCR NOT DETECTED 08/12/21 08:40 Nasal RSV (PCR) NOT DETECTED 08/12/21 08:40 Nasal Screen MRSA (PCR) NEGATIVE (NEGATIVE) 08/12/21 14:00 Nasal B.pertussis DNA PCR NOT DETECTED 08/12/21 08:40 Nasal C.pneumoniae (PCR) NOT DETECTED 08/12/21 08:40 Armando Human Metapneumo PCR NOT DETECTED 08/12/21 08:40 Nasal M.pneumoniae (PCR) NOT DETECTED 08/12/21 08:40 Nasal SARS-CoV-2 (PCR) NOT DETECTED 08/12/21 08:40 - Procedures Procedures: Procedures ENDOSC POLYPECTOMY OF LG INTEST (02/27/14) ABX Reporting Has patient been on IV antibiotics over the past 48 hours?: No
[2021-08-18] MEDS: INSULIN ASPART 300 UNIT/3 ML PEN SUBQ SCH ×7 (08:12→21:07)
[2021-08-18] MEDS: ENOXAPARIN 40 MG/0.4 ML SYRINGE SUBQ SCH ×2 (08:25→21:05)
[2021-08-18] MEDS: TAMSULOSIN 0.4 MG CAPSULE PO SCH (08:26)
[2021-08-18] MEDS: DOCUSATE SODIUM 250 MG CAPSULE PO SCH (08:26)
[2021-08-18] MEDS: SENNA 8.6 MG TABLET PO SCH (08:27)
[2021-08-18] MEDS: LOSARTAN 50 MG TABLET PO SCH (08:28)
[2021-08-18] MEDS: SERTRALINE 50 MG TABLET PO SCH (08:28)
[2021-08-18] MEDS: polyethylene glycoL 3350 17 GM PACKET PO SCH (08:29)
[2021-08-18 10:31] LABS: ABG HCO3 47.3 mmol/L (22.0-26.0); ABG OXYGEN SATURATION 93 % (94-98); ABG PH 7.34 (7.35-7.45); ABG PO2 71 mmHg (80-100)
[2021-08-18 10:32] LABS: ALLEN TEST POSITIVE
[2021-08-18 10:34] LABS: ABG PCO2 89 mmHg (34-45)
[2021-08-18] MEDS: ATORVASTATIN 40 MG TABLET PO SCH (21:04)
[2021-08-19 04:54] LABS: MAGNESIUM 1.9 mg/dL (1.7-2.8); PHOSPHORUS 3.1 mg/dL (2.5-4.6)
[2021-08-19] MEDS: INSULIN GLARGINE 300 UNIT/3 ML PEN SUBQ SCH ×2 (06:05→17:44)
[2021-08-19] MEDS: FUROSEMIDE 40 MG TABLET PO SCH ×2 (06:05→15:03)
[2021-08-19] MEDS: MIN OIL/DIMETHICON/COCONUT OIL 92 GM TUBE TOP PRN (06:06)
--- NOTE | 2021-08-19 07:28 | PROVIDER PROGRESS NOTE ---
Assessment/Plan - Problem List (1) Acute on chronic respiratory failure with hypoxia and hypercapnia Assessment/Plan: ABG this morning showed pH 7.39, PCO2 78, PO2 92 and bicarb 46.2. Continue bipap qhs Patient remains alert and oriented X4 Continue lasix 40mg po bid (2) CO2 narcosis Assessment/Plan: ABG this morning showed pH 7.34, PCO2 89, PO2 71 and bicarb 47.3. This is an improvement from the previous day We will place patient on BiPAP during the day today. Patient remains alert and oriented X4 Continue lasix 40mg po bid (3) Chronic venous stasis dermatitis of both lower extremities Assessment/Plan: Continue to wrap lower extremities with Jon wrap compressions and elevate legs. Continue Lasix 40 mg p.o. twice daily. (5) YONATAN on CPAP Assessment/Plan: On BiPAP nightly. (6) Obesity hypoventilation syndrome Assessment/Plan: On BiPAP nightly. (7) Controlled type 2 diabetes mellitus without complication, with long-term current use of insulin Assessment/Plan: Lantus 15 units twice daily Acuc checks qAC and HS, sliding scale insulin (8) Self neglect Assessment/Plan: Social work/case management continues to assist in placement. To date the attempts have been unsuccessful. We will continue to try. (9) AVB (atrioventricular block) Assessment/Plan: It was reported and captured on telemetry overnight that the patient had an episode of atrial tachycardia with complete heart block. He was asleep at the time but also asymptomatic. Patient's heart rate on telemetry at the time was 56. A 12-lead EKG done on 08/19/2021 around 8:30 AM showed sinus rhythm with a prolonged OH interval greater than 220. This was presented to (combine operator) with [facility]. The question was about the need for transfer in order to have a cardiology consult and possible pacemaker. Dr. Cardona advised continued management of obesity hypoventilation, sleep apnea and CO2 narcosis. Transfer and no intervention was not indicated at this time. He highlights that this was a brief occurrence during which the patient was asymptomatic and is currently in sinus rhythm. Further that if it occurred again the patient may benefit from Holter monitor. We will continue monitoring the patient on telemetry. - Current Meds Current Meds: Current Medications Generic Name Dose Route Start Last Admin Trade Name Freq PRN Reason Stop Dose Admin Atorvastatin Calcium 80 mg 08/17/21 21:00 08/18/21 21:04 Atorvastatin 40 Mg Tablet PO 80 mg QPM JAYNA Administration Docusate Sodium 250 - 500 mg 08/14/21 09:00 08/18/21 08:26 Docusate Sodium 250 Mg Capsule PO 250 mg DAILY JAYNA Administration Enoxaparin Sodium 40 mg 08/13/21 09:00 08/18/21 21:05 Enoxaparin 40 Mg/0.4 Ml Syringe SUBQ 40 mg BID JAYNA Administration Furosemide 40 mg 08/17/21 18:00 08/19/21 06:05 Furosemide 40 Mg Tablet PO 40 mg BIDDIURETIC JAYNA Administration Insulin Aspart 1 - 5 unit 08/13/21 21:00 08/18/21 21:07 Insulin Aspart 300 Unit/3 Ml Pen SUBQ 2 unit 0800,1200,1700,2100 JAYNA Administration Protocol Insulin Aspart 4 unit 08/16/21 08:00 08/18/21 17:16 Insulin Aspart 300 Unit/3 Ml Pen SUBQ 4 unit TIDWM JAYNA Administration Insulin Glargine 15 unit 08/12/21 18:00 08/19/21 06:05 Insulin Glargine 300 Unit/3 Ml Pen SUBQ 15 unit 0600,1800 JAYNA Administration Losartan Potassium 100 mg 08/18/21 09:00 08/18/21 08:28 Losartan 50 Mg Tablet PO 100 mg DAILY JAYNA Administration Mineral Oil 1 applic 08/17/21 09:49 08/19/21 06:06 Min Oil/Dimethicon/Coconut Oil 92 Gm Tube TOP 1 applic PRN PRN Administration Skin Care Nystatin 1 applic 08/16/21 21:00 08/18/21 20:38 Nystatin Powder 15 Gm TOP 1 applic BID JAYNA Administration Oxycodone HCl 5 mg 08/12/21 10:28 08/15/21 05:07 Oxycodone 5 Mg Tablet PO 5 mg Q4HR PRN Administration Pain 5 to 7 Polyethylene Glycol 17 gm 08/16/21 17:04 08/18/21 08:29 Polyethylene Glycol 3350 17 Gm Packet PO Not Given DAILY JAYNA Senna 8.6 - 17.2 mg 08/14/21 09:00 08/18/21 08:27 Senna 8.6 Mg Tablet PO 8.6 mg DAILY JAYNA Administration Sertraline HCl 200 mg 08/13/21 21:00 08/18/21 08:28 Sertraline 50 Mg Tablet PO 200 mg DAILY JAYNA Administration Sodium Chloride 10 ml 08/12/21 10:28 08/17/21 18:58 Sodium Chloride Flush 0.9% 10 Ml Syringe IVP 10 ml PRN PRN Administration NEEDED PER PROVIDER ORDERS Tamsulosin HCl 0.4 mg 08/13/21 09:00 08/18/21 08:26 Tamsulosin 0.4 Mg Capsule PO 0.4 mg DAILY JAYNA Administration - Lab Result Fish Bone Diagrams: 08/19/21 08:04 08/19/21 08:04 - Additional Planning My Orders: My Active Orders 08/18/21 07:19 RT - Obtain Arterial Specimen [RC] .ONCE 08/18/21 09:00 Losartan [Cozaar] 100 mg PO DAILY 08/19/21 07:25 EKG - Electrocardiogram [RC] .ONCE RT - Obtain Arterial Specimen [RC] .ONCE ABG - ARTERIAL BLOOD GAS [BG] Stat 08/19/21 07:26 BMP - BASIC METABOLIC PANEL [CHEM] Routine CBC - COMP BLD CT W/AUTO DIFF [HEME] Routine 08/20/21 05:00 BMP - BASIC METABOLIC PANEL [CHEM] DAILYLAB CBC - COMP BLD CT W/AUTO DIFF [HEME] DAILYLAB 08/21/21 05:00 BMP - BASIC METABOLIC PANEL [CHEM] DAILYLAB CBC - COMP BLD CT W/AUTO DIFF [HEME] DAILYLAB 08/22/21 05:00 BMP - BASIC METABOLIC PANEL [CHEM] DAILYLAB CBC - COMP BLD CT W/AUTO DIFF [HEME] DAILYLAB 08/23/21 05:00 BMP - BASIC METABOLIC PANEL [CHEM] DAILYLAB CBC - COMP BLD CT W/AUTO DIFF [HEME] DAILYLAB 08/24/21 05:00 BMP - BASIC METABOLIC PANEL [CHEM] DAILYLAB CBC - COMP BLD CT W/AUTO DIFF [HEME] DAILYLAB Subjective - Subjective Patient Reports: Other (Resting in bed comfortably. He denied any complaints. It was reported that he had an episode of complete heart block last night. He was asleep and asymptomatic during the occurrence. There has been no recurrence.) Objective Vital Signs: Vital Signs - 24 hr 08/18/21 08/18/21 08/18/21 09:00 10:30 12:57 Temperature 36.0 C L Heart Rate 58 L Heart Rate [ 73 63 Monitoring electrodes] Respiratory 21 22 Rate Blood Pressure 130/81 H [Left Brachial artery] O2 Saturation 96 08/18/21 08/18/21 08/18/21 15:24 17:00 20:00 Temperature 37.1 C Heart Rate 60 Heart Rate [ 61 74 Monitoring electrodes] Respiratory 20 18 Rate Blood Pressure 138/63 H 121/102 H [Left Brachial artery] O2 Saturation 9 L 97 08/18/21 08/18/21 08/18/21 20:46 21:30 23:29 Temperature 36.7 C 36.7 C Heart Rate 74 Heart Rate [ Monitoring electrodes] Respiratory Rate Blood Pressure [Left Brachial artery] O2 Saturation 08/19/21 08/19/21 08/19/21 00:00 01:00 03:40 Temperature 36.9 C Heart Rate 74 Heart Rate [ 60 73 Monitoring electrodes] Respiratory 21 27 H Rate Blood Pressure 133/54 H 125/60 [Left Brachial artery] O2 Saturation 94 96 08/19/21 04:21 Temperature Heart Rate 60 Heart Rate [ Monitoring electrodes] Respiratory Rate Blood Pressure [Left Brachial artery] O2 Saturation Oxygen O2 Source Oxymizer Oxygen Flow Rate 4 I&O (Last 24 Hrs): Intake and Output Totals x24h 08/17/21 08/18/21 08/19/21 23:59 23:59 23:59 Intake Total 765 1305 350 Output Total 845 450 320 Balance -80 855 30 General: Alert, Oriented x3, No acute distress HEENT: PERRLA, EOMI Neck: Supple, No JVD Neuro: Alert, Oriented Times 3 Cardiovascular: Regular rate Respiratory: Chest non-tender, No respiratory distress, Other (Diminished breath sounds due to body habitus) Abdomen: Normal bowel sounds, Soft, No tenderness Extremities: Other (Dry scaly skin. Venostasis changes) - Results Results: Laboratory Results WBC 5.3 x10^3/uL (4.8-10.8) 08/18/21 04:04 RBC 5.22 10^6/uL (4.70-6.10) 08/18/21 04:04 Hgb 12.2 g/dL (14.0-18.0) L 08/18/21 04:04 Hct 46.2 % (42.0-52.0) 08/18/21 04:04 MCV 88.5 fL (80.0-94.0) 08/18/21 04:04 MCH 23.4 pg (27.0-31.0) L 08/18/21 04:04 MCHC 26.4 g/dL (32.0-36.0) L 08/18/21 04:04 RDW 16.4 % (12.0-15.0) H 08/18/21 04:04 Plt Count 173 10^3/uL (130-450) 08/18/21 04:04 MPV 9.9 fL (7.4-11.4) 08/18/21 04:04 Neut # (Auto) 3.8 10^3/uL (1.5-6.6) 08/18/21 04:04 Lymph # (Auto) 0.9 10^3/uL (1.5-3.5) L 08/18/21 04:04 [place] # (Auto) 0.4 10^3/uL (0.0-1.0) 08/18/21 04:04 Eos # (Auto) 0.2 10^3/uL (0.0-0.7) 08/18/21 04:04 Baso # (Auto) 0.0 10^3/uL (0.0-0.1) 08/18/21 04:04 Absolute Nucleated RBC 0.00 x10^3/uL 08/18/21 04:04 Nucleated RBC % 0.0 /100WBC 08/18/21 04:04 Manual Slide Review Indicated 08/16/21 04:41 WBC Morphology NORMAL APPEARANCE (NORMAL) 08/16/21 04:41 Platelet Estimate NORMAL (130-450,000) (NORMAL) 08/16/21 04:41 Platelet Morphology NORMAL APPEARANCE (NORMAL) 08/16/21 04:41 RBC Morph Micro Appear 1+ HYPOCHROMASIA (NORMAL) 08/16/21 04:41 Bld Gas Analysis Time 1029 08/18/21 10:17 Sample Site LEFT BRACHIAL 08/18/21 10:17 ABG pH 7.34 (7.35-7.45) L 08/18/21 10:17 ABG pCO2 89 mmHg (34-45) H* 08/18/21 10:17 ABG pO2 71 mmHg (80-100) L 08/18/21 10:17 ABG HCO3 47.3 mmol/L (22.0-26.0) H 08/18/21 10:17 ABG Total CO2 50.0 MMOL/L (21.0-29.0) H* 08/18/21 10:17 ABG O2 Saturation 93 % (94-98) L 08/18/21 10:17 ABG Base Excess 17.0 mmol/L (-2.0-3.0) H 08/18/21 10:17 Reynaldo Test POSITIVE 08/18/21 10:17 VBG pH 7.170 (7.31-7.41) L 08/12/21 11:22 VBG pCO2 102.1 mmHg (41-51) H 08/12/21 11:22 VBG pO2 85.8 mmHg (25-47) H 08/12/21 11:22 VBG HCO3 36.4 mmol/L (23-28) H 08/12/21 11:22 VBG Total CO2 39.5 mmol/L (24-29) H 08/12/21 11:22 VBG O2 Saturation 95.4 % (60-80) H 08/12/21 11:22 VBG Base Excess 3.6 mmol/L (-2 - +2) H 08/12/21 11:22 Respiration Rate 15 b/min 08/16/21 07:40 O2 Delivery Device BiPAP 08/18/21 10:17 Vent Mode SYNCHRONOUS/TIMES 08/12/21 18:15 FiO2 35.00 08/18/21 10:17 Pressure Support Vent 3 cmH2O 08/12/21 18:15 EPAP 8 cmH2O 08/18/21 10:17 IPAP 16 cmH2O 08/18/21 10:17 Sodium 145 mmol/L (135-145) 08/18/21 04:04 Potassium 4.4 mmol/L (3.5-5.0) 08/18/21 04:04 Chloride 92 mmol/L (101-111) L 08/18/21 04:04 Carbon Dioxide 44 mmol/L (21-32) H* 08/18/21 04:04 Anion Gap 9.0 (6-13) 08/18/21 04:04 BUN 23 mg/dL (6-20) H 08/18/21 04:04 Creatinine 0.7 mg/dL (0.6-1.2) 08/18/21 04:04 Estimated GFR (MDRD) 112 (>89) 08/18/21 04:04 Glucose 238 mg/dL (70-100) H 08/18/21 04:04 POC Whole Bld Glucose 189 mg/dL (70 - 100) H 08/19/21 05:51 Estimat Average Glucose 146 mg/dL (70-100) H 08/13/21 14:53 Hemoglobin A1c % 6.7 % (4.27-6.07) H 08/13/21 14:53 Calcium 9.0 mg/dL (8.5-10.3) 08/18/21 04:04 Phosphorus 3.1 mg/dL (2.5-4.6) 08/19/21 04:03 Magnesium 1.9 mg/dL (1.7-2.8) 08/19/21 04:03 Total Bilirubin 0.6 mg/dL (0.2-1.0) 08/12/21 08:40 AST 14 IU/L (10-42) 08/12/21 08:40 ALT 15 IU/L (10-60) 08/12/21 08:40 Alkaline Phosphatase 119 IU/L (42-121) 08/12/21 08:40 Troponin I High Sens 27.4 ng/L (2.3-19.7) H* 08/12/21 11:22 B-Natriuretic Peptide 161 pg/mL (5-100) H 08/12/21 08:40 Total Protein 7.2 g/dL (6.7-8.2) 08/12/21 08:40 Albumin 3.2 g/dL (3.2-5.5) 08/12/21 08:40 Globulin 4.0 g/dL (2.1-4.2) 08/12/21 08:40 Albumin/Globulin Ratio 0.8 (1.0-2.2) L 08/12/21 08:40 Lipase 30 U/L (22-51) 08/12/21 08:40 Nasal Adenovirus (PCR) NOT DETECTED 08/12/21 08:40 Nasal B. parapertussis DNA (PCR) NOT DETECTED 08/12/21 08:40 Nasal Coronavir 229E PCR NOT DETECTED 08/12/21 08:40 Nasal Coronavir HKU1 PCR NOT DETECTED 08/12/21 08:40 Nasal Coronavir NL63 PCR NOT DETECTED 08/12/21 08:40 Nasal Coronavir OC43 PCR NOT DETECTED 08/12/21 08:40 Nasal Enterovir/Rhinovir PCR NOT DETECTED 08/12/21 08:40 Nasal Influenza B PCR NOT DETECTED 08/12/21 08:40 Nasal Influenza A PCR NOT DETECTED 08/12/21 08:40 Nasal Parainfluen 1 PCR NOT DETECTED 08/12/21 08:40 Nasal Parainfluen 2 PCR NOT DETECTED 08/12/21 08:40 Nasal Parainfluen 3 PCR NOT DETECTED 08/12/21 08:40 Nasal Parainfluen 4 PCR NOT DETECTED 08/12/21 08:40 Nasal RSV (PCR) NOT DETECTED 08/12/21 08:40 Nasal Screen MRSA (PCR) NEGATIVE (NEGATIVE) 08/12/21 14:00 Nasal B.pertussis DNA PCR NOT DETECTED 08/12/21 08:40 Nasal C.pneumoniae (PCR) NOT DETECTED 08/12/21 08:40 Armando Human Metapneumo PCR NOT DETECTED 08/12/21 08:40 Nasal M.pneumoniae (PCR) NOT DETECTED 08/12/21 08:40 Nasal SARS-CoV-2 (PCR) NOT DETECTED 08/12/21 08:40 - Procedures Procedures: Procedures ENDOSC POLYPECTOMY OF LG INTEST (02/27/14) ABX Reporting Has patient been on IV antibiotics over the past 48 hours?: No
[2021-08-19] MEDS: INSULIN ASPART 300 UNIT/3 ML PEN SUBQ SCH ×7 (08:00→21:46)
[2021-08-19 08:22] LABS: CALCIUM 8.6 mg/dL (8.5-10.3); CREATININE 0.8 mg/dL (0.6-1.2); POTASSIUM 4.3 mmol/L (3.5-5.0)
[2021-08-19 08:27] LABS: BASOPHILS % (AUTO) 0.4 %; EOSINOPHILS # (AUTO) 0.1 10^3/uL (0.0-0.7); EOSINOPHILS % (AUTO) 2.5 %; HCT - HEMATOCRIT 45.2 % (42.0-52.0); HGB - HEMOGLOBIN 12.1 g/dL (14.0-18.0); LYMPHOCYTES # (AUTO) 1.4 10^3/uL (1.5-3.5); LYMPHOCYTES % (AUTO) 24.4 %; MEAN CORPUSCULAR HEMOGLOBIN 23.4 pg (27.0-31.0); MEAN CORPUSCULAR HGB CONC 26.8 g/dL (32.0-36.0); MEAN CORPUSCULAR VOLUME 87.3 fL (80.0-94.0); MEAN PLATELET VOLUME 10.2 fL (7.4-11.4); MONOCYTES # (AUTO) 0.4 10^3/uL (0.0-1.0); MONOCYTES % (AUTO) 6.8 %; NEUTROPHILS # (AUTO) 3.7 10^3/uL (1.5-6.6); NEUTROPHILS % (AUTO) 65.5 %; PLT - PLATELET COUNT 162 10^3/uL (130-450); RED BLOOD COUNT 5.18 10^6/uL (4.70-6.10); RED CELL DISTRIBUTION WIDTH 16.4 % (12.0-15.0); WHITE BLOOD COUNT 5.6 x10^3/uL (4.8-10.8)
[2021-08-19 08:43] LABS: SLIDE REVIEW? Indicated
[2021-08-19 09:02] LABS: PLATELET ESTIMATE, MANUAL NORMAL (130-450,000) (NORMAL); PLATELET MORPHOLOGY NORMAL APPEARANCE (NORMAL)
[2021-08-19 09:57] LABS: ABG BASE EXCESS 17.2 mmol/L (-2.0-3.0); ABG HCO3 46.2 mmol/L (22.0-26.0); ABG OXYGEN SATURATION 97 % (94-98); ABG PH 7.39 (7.35-7.45); ABG PO2 92 mmHg (80-100)
[2021-08-19 09:58] LABS: ABG MODE OF VENTILATION SYNCHRONOUS/TIMES; ABG RESPIRATORY RATE 15 b/min; ALLEN TEST POSITIVE
[2021-08-19 10:16] LABS: ABG PCO2 78 mmHg (34-45); ABG TCO2 48.6 MMOL/L (21.0-29.0)
[2021-08-19] MEDS: polyethylene glycoL 3350 17 GM PACKET PO SCH (10:48)
[2021-08-19] MEDS: TAMSULOSIN 0.4 MG CAPSULE PO SCH (10:49)
[2021-08-19] MEDS: DOCUSATE SODIUM 250 MG CAPSULE PO SCH (10:49)
[2021-08-19] MEDS: SENNA 8.6 MG TABLET PO SCH (10:49)
[2021-08-19] MEDS: SERTRALINE 50 MG TABLET PO SCH (10:49)
[2021-08-19] MEDS: NYSTATIN POWDER 15 GM TOP SCH ×2 (10:50→21:42)
[2021-08-19] MEDS: ENOXAPARIN 40 MG/0.4 ML SYRINGE SUBQ SCH ×2 (10:50→21:48)
[2021-08-19] MEDS: LOSARTAN 50 MG TABLET PO SCH (10:50)
[2021-08-19] MEDS: SODIUM CHLORIDE FLUSH 0.9% 10 ML SYRINGE IVP PRN ×3 (12:29→19:27)
[2021-08-19] MEDS: ACETAMINOPHEN 325 MG TABLET PO PRN (15:03)
[2021-08-19] MEDS: ATORVASTATIN 40 MG TABLET PO SCH (21:42)
[2021-08-20 05:05] LABS: BASOPHILS % (AUTO) 0.4 %; EOSINOPHILS # (AUTO) 0.2 10^3/uL (0.0-0.7); EOSINOPHILS % (AUTO) 2.8 %; HGB - HEMOGLOBIN 11.9 g/dL (14.0-18.0); LYMPHOCYTES # (AUTO) 1.1 10^3/uL (1.5-3.5); LYMPHOCYTES % (AUTO) 20.1 %; MEAN CORPUSCULAR HEMOGLOBIN 23.2 pg (27.0-31.0); MEAN CORPUSCULAR HGB CONC 26.4 g/dL (32.0-36.0); MEAN CORPUSCULAR VOLUME 87.9 fL (80.0-94.0); MEAN PLATELET VOLUME 10.3 fL (7.4-11.4); MONOCYTES # (AUTO) 0.4 10^3/uL (0.0-1.0); MONOCYTES % (AUTO) 7.3 %; NEUTROPHILS # (AUTO) 3.7 10^3/uL (1.5-6.6); PLT - PLATELET COUNT 170 10^3/uL (130-450); RED BLOOD COUNT 5.12 10^6/uL (4.70-6.10); RED CELL DISTRIBUTION WIDTH 16.4 % (12.0-15.0); WHITE BLOOD COUNT 5.3 x10^3/uL (4.8-10.8)
[2021-08-20 05:12] LABS: SLIDE REVIEW? Indicated
[2021-08-20 05:21] LABS: CALCIUM 8.6 mg/dL (8.5-10.3); CREATININE 0.6 mg/dL (0.6-1.2); POTASSIUM 4.5 mmol/L (3.5-5.0)
[2021-08-20 05:37] LABS: PLATELET ESTIMATE, MANUAL NORMAL (130-450,000) (NORMAL); PLATELET MORPHOLOGY NORMAL APPEARANCE (NORMAL); RBC MORPHOLOGY (MULTIPLE) 1+ HYPOCHROMASIA (NORMAL); WBC MORPHOLOGY (MULTIPLE) NORMAL APPEARANCE (NORMAL)
[2021-08-20] MEDS: FUROSEMIDE 40 MG TABLET PO SCH ×2 (05:50→14:48)
[2021-08-20] MEDS: INSULIN GLARGINE 300 UNIT/3 ML PEN SUBQ SCH ×2 (05:52→16:38)
--- NOTE | 2021-08-20 07:23 | PROVIDER PROGRESS NOTE ---
Assessment/Plan - Problem List (1) Acute on chronic respiratory failure with hypoxia and hypercapnia Assessment/Plan: Continue bipap qhs Patient remains alert and oriented X4 Continue lasix 40mg po bid (2) CO2 narcosis Assessment/Plan: Continue bipap qhs Patient remains alert and oriented X4 Continue lasix 40mg po bid (3) Chronic venous stasis dermatitis of both lower extremities Assessment/Plan: Continue to wrap lower extremities with Jon wrap compressions and elevate legs. Continue Lasix 40 mg p.o. twice daily. (5) YONATAN on CPAP Assessment/Plan: On BiPAP nightly. (6) Obesity hypoventilation syndrome Assessment/Plan: On BiPAP nightly. (7) Controlled type 2 diabetes mellitus without complication, with long-term current use of insulin Assessment/Plan: Lantus 15 units twice daily Acuc checks qAC and HS, sliding scale insulin (8) Self neglect Assessment/Plan: Social work/case management continues to assist in placement. To date the attempts have been unsuccessful. We will continue to try. (9) AVB (atrioventricular block) Assessment/Plan: It was reported and captured on telemetry overnight that the patient had an episode of atrial tachycardia with complete heart block. He was asleep at the time but also asymptomatic. Patient's heart rate on telemetry at the time was 56. A 12-lead EKG done on 08/19/2021 around 8:30 AM showed sinus rhythm with a prolonged AR interval greater than 220. 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 The question was about the need for transfer in order to have a cardiology consult and possible pacemaker. Dr. Cardona advised continued management of obesity hypoventilation, sleep apnea and CO2 narcosis. Transfer and no intervention was not indicated at this time. He highlights that this was a brief occurrence during which the patient was asymptomatic and is currently in sinus rhythm. Further that if it occurred again the patient may benefit from Holter monitor. We will continue monitoring the patient on telemetry. - Current Meds Current Meds: Current Medications Generic Name Dose Route Start Last Admin Trade Name Freq PRN Reason Stop Dose Admin Acetaminophen 650 mg 08/12/21 10:28 08/19/21 15:03 Acetaminophen 325 Mg Tablet PO 650 mg Q4HR PRN Administration Pain 1 to 4 Atorvastatin Calcium 80 mg 08/17/21 21:00 08/19/21 21:42 Atorvastatin 40 Mg Tablet PO 80 mg QPM JAYNA Administration Docusate Sodium 250 - 500 mg 08/14/21 09:00 08/19/21 10:49 Docusate Sodium 250 Mg Capsule PO 250 mg DAILY JAYNA Administration Enoxaparin Sodium 40 mg 08/13/21 09:00 08/19/21 21:48 Enoxaparin 40 Mg/0.4 Ml Syringe SUBQ 40 mg BID JAYNA Administration Furosemide 40 mg 08/17/21 18:00 08/20/21 05:50 Furosemide 40 Mg Tablet PO 40 mg BIDDIURETIC JAYNA Administration Insulin Aspart 4 unit 08/16/21 08:00 08/19/21 17:50 Insulin Aspart 300 Unit/3 Ml Pen SUBQ 4 unit TIDWM JAYNA Administration Insulin Aspart 1 - 9 unit 08/19/21 21:00 08/19/21 21:46 Insulin Aspart 300 Unit/3 Ml Pen SUBQ 5 unit 0800,1200,1700,2100 JAYNA Administration Protocol Insulin Glargine 15 unit 08/12/21 18:00 08/20/21 05:52 Insulin Glargine 300 Unit/3 Ml Pen SUBQ 15 unit 0600,1800 JAYNA Administration Losartan Potassium 100 mg 08/18/21 09:00 08/19/21 10:50 Losartan 50 Mg Tablet PO 100 mg DAILY JAYNA Administration Mineral Oil 1 applic 08/17/21 09:49 08/19/21 06:06 Min Oil/Dimethicon/Coconut Oil 92 Gm Tube TOP 1 applic PRN PRN Administration Skin Care Nystatin 1 applic 08/16/21 21:00 08/19/21 21:42 Nystatin Powder 15 Gm TOP 1 applic BID JAYNA Administration Oxycodone HCl 5 mg 08/12/21 10:28 08/15/21 05:07 Oxycodone 5 Mg Tablet PO 5 mg Q4HR PRN Administration Pain 5 to 7 Polyethylene Glycol 17 gm 08/16/21 17:04 08/19/21 10:48 Polyethylene Glycol 3350 17 Gm Packet PO 17 gm DAILY JAYNA Administration Senna 8.6 - 17.2 mg 08/14/21 09:00 08/19/21 10:49 Senna 8.6 Mg Tablet PO 8.6 mg DAILY JAYNA Administration Sertraline HCl 200 mg 08/13/21 21:00 08/19/21 10:49 Sertraline 50 Mg Tablet PO 200 mg DAILY JAYNA Administration Sodium Chloride 10 ml 08/12/21 10:28 08/19/21 19:27 Sodium Chloride Flush 0.9% 10 Ml Syringe IVP 10 ml PRN PRN Administration NEEDED PER PROVIDER ORDERS Tamsulosin HCl 0.4 mg 08/13/21 09:00 08/19/21 10:49 Tamsulosin 0.4 Mg Capsule PO 0.4 mg DAILY JAYNA Administration - Lab Result Fish Bone Diagrams: 08/20/21 04:12 08/20/21 04:12 - Additional Planning My Orders: My Active Orders 08/21/21 05:00 BMP - BASIC METABOLIC PANEL [CHEM] DAILYLAB CBC - COMP BLD CT W/AUTO DIFF [HEME] DAILYLAB 08/22/21 05:00 BMP - BASIC METABOLIC PANEL [CHEM] DAILYLAB CBC - COMP BLD CT W/AUTO DIFF [HEME] DAILYLAB 08/23/21 05:00 BMP - BASIC METABOLIC PANEL [CHEM] DAILYLAB CBC - COMP BLD CT W/AUTO DIFF [HEME] DAILYLAB 08/24/21 05:00 BMP - BASIC METABOLIC PANEL [CHEM] DAILYLAB CBC - COMP BLD CT W/AUTO DIFF [HEME] DAILYLAB Subjective - Subjective Patient Reports: Other (Patient resting comfortably in bed. He denied any complaints.) Objective Vital Signs: Vital Signs - 24 hr 08/19/21 08/19/21 08/19/21 09:00 09:30 12:26 Temperature 37.2 C 36.5 C Heart Rate Heart Rate [ 61 74 Monitoring electrodes] Respiratory 20 27 H Rate Blood Pressure 139/64 H 152/67 H [Left Brachial artery] O2 Saturation 98 98 08/19/21 08/19/21 08/19/21 15:51 17:00 19:15 Temperature 36.5 C Heart Rate 47 L Heart Rate [ 73 68 Monitoring electrodes] Respiratory 15 21 Rate Blood Pressure 121/35 L 135/62 H [Left Brachial artery] O2 Saturation 98 96 08/19/21 08/19/21 08/19/21 19:32 21:34 22:15 Temperature 36.9 C Heart Rate 55 L Heart Rate [ 78 Monitoring electrodes] Respiratory 18 Rate Blood Pressure 115/66 [Left Brachial artery] O2 Saturation 96 08/19/21 08/20/21 08/20/21 23:50 01:15 03:50 Temperature 36.6 C 36.6 C Heart Rate 64 Heart Rate [ 64 68 Monitoring electrodes] Respiratory 21 22 Rate Blood Pressure 133/77 H 144/61 H [Left Brachial artery] O2 Saturation 96 97 08/20/21 05:10 Temperature Heart Rate 70 Heart Rate [ Monitoring electrodes] Respiratory Rate Blood Pressure [Left Brachial artery] O2 Saturation Oxygen O2 Source Nasal cannula Oxygen Flow Rate 4 I&O (Last 24 Hrs): Intake and Output Totals x24h 08/18/21 08/19/21 08/20/21 23:59 23:59 23:59 Intake Total 1305 1660 500 Output Total 450 3035 500 Balance 855 -1375 0 Comments/Notes: General: Alert, Oriented x3, No acute distress HEENT: PERRLA, EOMI Neck: Supple, No JVD Neuro: Alert, Oriented Times 3 Cardiovascular: Regular rate Respiratory: Chest non-tender, No respiratory distress, Other (Diminished breath sounds due to body habitus) Abdomen: Normal bowel sounds, Soft, No tenderness Extremities: Other (Dry scaly skin. Venostasis changes) - Results Results: Laboratory Results WBC 5.3 x10^3/uL (4.8-10.8) 08/20/21 04:12 RBC 5.12 10^6/uL (4.70-6.10) 08/20/21 04:12 Hgb 11.9 g/dL (14.0-18.0) L 08/20/21 04:12 Hct 45.0 % (42.0-52.0) 08/20/21 04:12 MCV 87.9 fL (80.0-94.0) 08/20/21 04:12 MCH 23.2 pg (27.0-31.0) L 08/20/21 04:12 MCHC 26.4 g/dL (32.0-36.0) L 08/20/21 04:12 RDW 16.4 % (12.0-15.0) H 08/20/21 04:12 Plt Count 170 10^3/uL (130-450) 08/20/21 04:12 MPV 10.3 fL (7.4-11.4) 08/20/21 04:12 Neut # (Auto) 3.7 10^3/uL (1.5-6.6) 08/20/21 04:12 Lymph # (Auto) 1.1 10^3/uL (1.5-3.5) L 08/20/21 04:12 [place] # (Auto) 0.4 10^3/uL (0.0-1.0) 08/20/21 04:12 Eos # (Auto) 0.2 10^3/uL (0.0-0.7) 08/20/21 04:12 Baso # (Auto) 0.0 10^3/uL (0.0-0.1) 08/20/21 04:12 Absolute Nucleated RBC 0.00 x10^3/uL 08/20/21 04:12 Nucleated RBC % 0.0 /100WBC 08/20/21 04:12 Manual Slide Review Indicated 08/20/21 04:12 WBC Morphology NORMAL APPEARANCE (NORMAL) 08/20/21 04:12 Platelet Estimate NORMAL (130-450,000) (NORMAL) 08/20/21 04:12 Platelet Morphology NORMAL APPEARANCE (NORMAL) 08/20/21 04:12 RBC Morph Micro Appear 1+ HYPOCHROMASIA (NORMAL) 08/20/21 04:12 Bld Gas Analysis Time 0950 08/19/21 09:50 Sample Site RIGHT RADIAL 08/19/21 09:50 ABG pH 7.39 (7.35-7.45) 08/19/21 09:50 ABG pCO2 78 mmHg (34-45) H* 08/19/21 09:50 ABG pO2 92 mmHg (80-100) 08/19/21 09:50 ABG HCO3 46.2 mmol/L (22.0-26.0) H 08/19/21 09:50 ABG Total CO2 48.6 MMOL/L (21.0-29.0) H* 08/19/21 09:50 ABG O2 Saturation 97 % (94-98) 08/19/21 09:50 ABG Base Excess 17.2 mmol/L (-2.0-3.0) H 08/19/21 09:50 Reynaldo Test POSITIVE 08/19/21 09:50 VBG pH 7.170 (7.31-7.41) L 08/12/21 11:22 VBG pCO2 102.1 mmHg (41-51) H 08/12/21 11:22 VBG pO2 85.8 mmHg (25-47) H 08/12/21 11:22 VBG HCO3 36.4 mmol/L (23-28) H 08/12/21 11:22 VBG Total CO2 39.5 mmol/L (24-29) H 08/12/21 11:22 VBG O2 Saturation 95.4 % (60-80) H 08/12/21 11:22 VBG Base Excess 3.6 mmol/L (-2 - +2) H 08/12/21 11:22 Respiration Rate 15 b/min 08/19/21 09:50 O2 Delivery Device BiPAP 08/19/21 09:50 Vent Mode SYNCHRONOUS/TIMES 08/19/21 09:50 FiO2 35.00 08/19/21 09:50 Pressure Support Vent 3 cmH2O 08/12/21 18:15 EPAP 8 cmH2O 08/19/21 09:50 IPAP 16 cmH2O 08/19/21 09:50 Sodium 141 mmol/L (135-145) 08/20/21 04:12 Potassium 4.5 mmol/L (3.5-5.0) 08/20/21 04:12 Chloride 89 mmol/L (101-111) L 08/20/21 04:12 Carbon Dioxide 45 mmol/L (21-32) H* 08/20/21 04:12 Anion Gap 7.0 (6-13) 08/20/21 04:12 BUN 22 mg/dL (6-20) H 08/20/21 04:12 Creatinine 0.6 mg/dL (0.6-1.2) 08/20/21 04:12 Estimated GFR (MDRD) 134 (>89) 08/20/21 04:12 Glucose 206 mg/dL (70-100) H 08/20/21 04:12 POC Whole Bld Glucose 195 mg/dL (70 - 100) H 08/20/21 04:57 Estimat Average Glucose 146 mg/dL (70-100) H 08/13/21 14:53 Hemoglobin A1c % 6.7 % (4.27-6.07) H 08/13/21 14:53 Calcium 8.6 mg/dL (8.5-10.3) 08/20/21 04:12 Phosphorus 3.1 mg/dL (2.5-4.6) 08/19/21 04:03 Magnesium 1.9 mg/dL (1.7-2.8) 08/19/21 04:03 Total Bilirubin 0.6 mg/dL (0.2-1.0) 08/12/21 08:40 AST 14 IU/L (10-42) 08/12/21 08:40 ALT 15 IU/L (10-60) 08/12/21 08:40 Alkaline Phosphatase 119 IU/L (42-121) 08/12/21 08:40 Troponin I High Sens 27.4 ng/L (2.3-19.7) H* 08/12/21 11:22 B-Natriuretic Peptide 161 pg/mL (5-100) H 08/12/21 08:40 Total Protein 7.2 g/dL (6.7-8.2) 08/12/21 08:40 Albumin 3.2 g/dL (3.2-5.5) 08/12/21 08:40 Globulin 4.0 g/dL (2.1-4.2) 08/12/21 08:40 Albumin/Globulin Ratio 0.8 (1.0-2.2) L 08/12/21 08:40 Lipase 30 U/L (22-51) 08/12/21 08:40 Nasal Adenovirus (PCR) NOT DETECTED 08/12/21 08:40 Nasal B. parapertussis DNA (PCR) NOT DETECTED 08/12/21 08:40 Nasal Coronavir 229E PCR NOT DETECTED 08/12/21 08:40 Nasal Coronavir HKU1 PCR NOT DETECTED 08/12/21 08:40 Nasal Coronavir NL63 PCR NOT DETECTED 08/12/21 08:40 Nasal Coronavir OC43 PCR NOT DETECTED 08/12/21 08:40 Nasal Enterovir/Rhinovir PCR NOT DETECTED 08/12/21 08:40 Nasal Influenza B PCR NOT DETECTED 08/12/21 08:40 Nasal Influenza A PCR NOT DETECTED 08/12/21 08:40 Nasal Parainfluen 1 PCR NOT DETECTED 08/12/21 08:40 Nasal Parainfluen 2 PCR NOT DETECTED 08/12/21 08:40 Nasal Parainfluen 3 PCR NOT DETECTED 08/12/21 08:40 Nasal Parainfluen 4 PCR NOT DETECTED 08/12/21 08:40 Nasal RSV (PCR) NOT DETECTED 08/12/21 08:40 Nasal Screen MRSA (PCR) NEGATIVE (NEGATIVE) 08/12/21 14:00 Nasal B.pertussis DNA PCR NOT DETECTED 08/12/21 08:40 Nasal C.pneumoniae (PCR) NOT DETECTED 08/12/21 08:40 Armando Human Metapneumo PCR NOT DETECTED 08/12/21 08:40 Nasal M.pneumoniae (PCR) NOT DETECTED 08/12/21 08:40 Nasal SARS-CoV-2 (PCR) NOT DETECTED 08/12/21 08:40 - Procedures Procedures: Procedures ENDOSC POLYPECTOMY OF LG INTEST (02/27/14) ABX Reporting Has patient been on IV antibiotics over the past 48 hours?: No
[2021-08-20] MEDS: INSULIN ASPART 300 UNIT/3 ML PEN SUBQ SCH ×7 (08:07→20:48)
[2021-08-20] MEDS: DOCUSATE SODIUM 250 MG CAPSULE PO SCH (08:13)
[2021-08-20] MEDS: SENNA 8.6 MG TABLET PO SCH (08:19)
[2021-08-20] MEDS: NYSTATIN POWDER 15 GM TOP SCH ×2 (08:19→20:47)
[2021-08-20] MEDS: ENOXAPARIN 40 MG/0.4 ML SYRINGE SUBQ SCH ×2 (08:20→20:47)
[2021-08-20] MEDS: SERTRALINE 50 MG TABLET PO SCH (08:20)
[2021-08-20] MEDS: LOSARTAN 50 MG TABLET PO SCH (08:20)
[2021-08-20] MEDS: TAMSULOSIN 0.4 MG CAPSULE PO SCH (08:20)
[2021-08-20] MEDS: polyethylene glycoL 3350 17 GM PACKET PO SCH (08:21)
[2021-08-20] MEDS: ATORVASTATIN 40 MG TABLET PO SCH (20:46)
[2021-08-21 05:21] LABS: BASOPHILS % (AUTO) 0.4 %; EOSINOPHILS # (AUTO) 0.2 10^3/uL (0.0-0.7); EOSINOPHILS % (AUTO) 2.6 %; HGB - HEMOGLOBIN 11.9 g/dL (14.0-18.0); LYMPHOCYTES # (AUTO) 0.9 10^3/uL (1.5-3.5); LYMPHOCYTES % (AUTO) 16.6 %; MEAN CORPUSCULAR HEMOGLOBIN 23.9 pg (27.0-31.0); MEAN CORPUSCULAR VOLUME 88.5 fL (80.0-94.0); MEAN PLATELET VOLUME 11.3 fL (7.4-11.4); MONOCYTES # (AUTO) 0.4 10^3/uL (0.0-1.0); MONOCYTES % (AUTO) 7.1 %; NEUTROPHILS # (AUTO) 4.1 10^3/uL (1.5-6.6); NEUTROPHILS % (AUTO) 72.9 %; PLT - PLATELET COUNT 191 10^3/uL (130-450); RED BLOOD COUNT 4.97 10^6/uL (4.70-6.10); RED CELL DISTRIBUTION WIDTH 16.7 % (12.0-15.0); WHITE BLOOD COUNT 5.7 x10^3/uL (4.8-10.8)
[2021-08-21 05:30] LABS: SLIDE REVIEW? Indicated
[2021-08-21 05:47] LABS: PLATELET ESTIMATE, MANUAL NORMAL (130-450,000) (NORMAL); PLATELET MORPHOLOGY NORMAL APPEARANCE (NORMAL); WBC MORPHOLOGY (MULTIPLE) NORMAL APPEARANCE (NORMAL)
[2021-08-21 05:49] LABS: CALCIUM 8.8 mg/dL (8.5-10.3); CREATININE 0.8 mg/dL (0.6-1.2); POTASSIUM 4.4 mmol/L (3.5-5.0)
[2021-08-21] MEDS: FUROSEMIDE 40 MG TABLET PO SCH ×2 (06:25→13:54)
[2021-08-21] MEDS: INSULIN GLARGINE 300 UNIT/3 ML PEN SUBQ SCH ×2 (06:28→17:09)
[2021-08-21] MEDS: SODIUM CHLORIDE FLUSH 0.9% 10 ML SYRINGE IVP PRN (07:52)
[2021-08-21] MEDS: INSULIN ASPART 300 UNIT/3 ML PEN SUBQ SCH ×7 (07:52→20:36)
[2021-08-21] MEDS: DOCUSATE SODIUM 250 MG CAPSULE PO SCH (09:09)
[2021-08-21] MEDS: TAMSULOSIN 0.4 MG CAPSULE PO SCH (09:09)
[2021-08-21] MEDS: SERTRALINE 50 MG TABLET PO SCH (09:09)
[2021-08-21] MEDS: polyethylene glycoL 3350 17 GM PACKET PO SCH (09:09)
[2021-08-21] MEDS: LOSARTAN 50 MG TABLET PO SCH (09:09)
[2021-08-21] MEDS: ENOXAPARIN 40 MG/0.4 ML SYRINGE SUBQ SCH ×2 (09:09→20:36)
[2021-08-21] MEDS: NYSTATIN POWDER 15 GM TOP SCH ×2 (09:10→20:37)
[2021-08-21] MEDS: SENNA 8.6 MG TABLET PO SCH (09:10)
--- NOTE | 2021-08-21 10:46 | PROVIDER PROGRESS NOTE ---
Assessment/Plan - Problem List (1) Acute on chronic respiratory failure with hypoxia and hypercapnia Assessment/Plan: Continue bipap qhs Patient remains alert and oriented X4 Continue lasix 40mg po bid (2) CO2 narcosis Assessment/Plan: Continue bipap qhs Patient remains alert and oriented X4 Continue lasix 40mg po bid (3) Chronic venous stasis dermatitis of both lower extremities Assessment/Plan: Continue to wrap lower extremities with Jon wrap compressions and elevate legs. Continue Lasix 40 mg p.o. twice daily. (5) YONATAN on CPAP Assessment/Plan: On BiPAP nightly. (6) Obesity hypoventilation syndrome Assessment/Plan: On BiPAP nightly. (7) Controlled type 2 diabetes mellitus without complication, with long-term current use of insulin Assessment/Plan: Lantus 15 units twice daily Acuc checks qAC and HS, sliding scale insulin (8) Self neglect Assessment/Plan: Social work/case management continues to assist in finding placement. To date the attempts have been unsuccessful. We will continue to try. (9) AVB (atrioventricular block) Assessment/Plan: No recurrence It was reported and captured on telemetry overnight on 08/18/21 that the patient had an episode of atrial tachycardia with complete heart block. He was asleep at the time but also asymptomatic. Patient's heart rate on telemetry at the time was 56. A 12-lead EKG done on 08/19/2021 around 8:30 AM showed sinus rhythm with a prolonged FL interval greater than 220. 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 The question was about the need for transfer in order to have a cardiology consult and possible pacemaker. Dr. Cardona advised continued management of obesity hypoventilation, sleep apnea and CO2 narcosis. Transfer and no intervention was not indicated at this time. He highlights that this was a brief occurrence during which the patient was asymptomatic and is currently in sinus rhythm. Further that if it occurred again the patient may benefit from Holter monitor. We will continue monitoring the patient on telemetry. - Current Meds Current Meds: Current Medications Generic Name Dose Route Start Last Admin Trade Name Freq PRN Reason Stop Dose Admin Acetaminophen 650 mg 08/12/21 10:28 08/19/21 15:03 Acetaminophen 325 Mg Tablet PO 650 mg Q4HR PRN Administration Pain 1 to 4 Atorvastatin Calcium 80 mg 08/17/21 21:00 08/20/21 20:46 Atorvastatin 40 Mg Tablet PO 80 mg QPM JAYNA Administration Docusate Sodium 250 - 500 mg 08/14/21 09:00 08/21/21 09:09 Docusate Sodium 250 Mg Capsule PO Not Given DAILY JAYNA Enoxaparin Sodium 40 mg 08/13/21 09:00 08/21/21 09:09 Enoxaparin 40 Mg/0.4 Ml Syringe SUBQ 40 mg BID JAYNA Administration Furosemide 40 mg 08/17/21 18:00 08/21/21 06:25 Furosemide 40 Mg Tablet PO 40 mg BIDDIURETIC JAYNA Administration Insulin Aspart 1 - 9 unit 08/19/21 21:00 08/21/21 07:52 Insulin Aspart 300 Unit/3 Ml Pen SUBQ 3 unit 0800,1200,1700,2100 JAYNA Administration Protocol Insulin Aspart 7 unit 08/20/21 17:00 08/21/21 07:52 Insulin Aspart 300 Unit/3 Ml Pen SUBQ 7 unit TIDWM JAYNA Administration Insulin Glargine 15 unit 08/12/21 18:00 08/21/21 06:28 Insulin Glargine 300 Unit/3 Ml Pen SUBQ 15 unit 0600,1800 JAYNA Administration Losartan Potassium 100 mg 08/18/21 09:00 08/21/21 09:09 Losartan 50 Mg Tablet PO 100 mg DAILY JAYNA Administration Mineral Oil 1 applic 08/17/21 09:49 08/19/21 06:06 Min Oil/Dimethicon/Coconut Oil 92 Gm Tube TOP 1 applic PRN PRN Administration Skin Care Nystatin 1 applic 08/16/21 21:00 08/21/21 09:10 Nystatin Powder 15 Gm TOP 1 applic BID JAYNA Administration Oxycodone HCl 5 mg 08/12/21 10:28 08/15/21 05:07 Oxycodone 5 Mg Tablet PO 5 mg Q4HR PRN Administration Pain 5 to 7 Polyethylene Glycol 17 gm 08/16/21 17:04 08/21/21 09:09 Polyethylene Glycol 3350 17 Gm Packet PO Not Given DAILY JAYNA Senna 8.6 - 17.2 mg 08/14/21 09:00 08/21/21 09:10 Senna 8.6 Mg Tablet PO Not Given DAILY JAYNA Sertraline HCl 200 mg 08/13/21 21:00 08/21/21 09:09 Sertraline 50 Mg Tablet PO 200 mg DAILY JAYNA Administration Sodium Chloride 10 ml 08/12/21 10:28 08/21/21 07:52 Sodium Chloride Flush 0.9% 10 Ml Syringe IVP 10 ml PRN PRN Administration NEEDED PER PROVIDER ORDERS Tamsulosin HCl 0.4 mg 08/13/21 09:00 08/21/21 09:09 Tamsulosin 0.4 Mg Capsule PO 0.4 mg DAILY JAYNA Administration - Lab Result Fish Bone Diagrams: 08/21/21 04:06 08/21/21 04:06 - Additional Planning My Orders: My Active Orders 08/20/21 17:00 Insulin Aspart [NovoLOG] 7 unit SUBQ TIDWM 08/22/21 05:00 BMP - BASIC METABOLIC PANEL [CHEM] DAILYLAB CBC - COMP BLD CT W/AUTO DIFF [HEME] DAILYLAB 08/23/21 05:00 BMP - BASIC METABOLIC PANEL [CHEM] DAILYLAB CBC - COMP BLD CT W/AUTO DIFF [HEME] DAILYLAB 08/24/21 05:00 BMP - BASIC METABOLIC PANEL [CHEM] DAILYLAB CBC - COMP BLD CT W/AUTO DIFF [HEME] DAILYLAB Subjective - Subjective Patient Reports: Other (Sitting comfortably in bed with BiPAP on. Denied any complaints. Worked with physical therapy today. Was out of bed later in the day.) Objective Vital Signs: Vital Signs - 24 hr 08/20/21 08/20/21 08/20/21 12:30 16:48 21:00 Temperature 36.8 C Heart Rate Heart Rate [ 74 73 80 Monitoring electrodes] Respiratory 19 24 16 Rate Blood Pressure 113/33 L 126/55 L 138/69 H [Left Brachial artery] O2 Saturation 98 98 97 08/20/21 08/21/21 08/21/21 21:30 01:15 01:30 Temperature Heart Rate 74 76 78 Heart Rate [ Monitoring electrodes] Respiratory Rate Blood Pressure [Left Brachial artery] O2 Saturation 08/21/21 08/21/21 08/21/21 01:31 01:45 02:20 Temperature Heart Rate 71 Heart Rate [ 73 Monitoring electrodes] Respiratory 20 19 Rate Blood Pressure [Left Brachial artery] O2 Saturation 98 98 08/21/21 08/21/21 08/21/21 05:00 05:30 07:53 Temperature 36.3 C L 36.9 C Heart Rate 61 Heart Rate [ 63 Monitoring electrodes] Respiratory 19 Rate Blood Pressure 153/51 H [Left Brachial artery] O2 Saturation 100 08/21/21 09:09 Temperature Heart Rate Heart Rate [ 78 Monitoring electrodes] Respiratory 23 Rate Blood Pressure 139/61 H [Left Brachial artery] O2 Saturation 96 Oxygen O2 Source Nasal cannula Oxygen Flow Rate 4 I&O (Last 24 Hrs): Intake and Output Totals x24h 08/19/21 08/20/21 08/21/21 23:59 23:59 23:59 Intake Total 1660 1950 420 Output Total 3035 3125 1550 Balance -1375 -1175 -1130 General: Alert, Oriented x3, No acute distress HEENT: PERRLA, EOMI Neck: No JVD Neuro: Alert, Oriented Times 3 Cardiovascular: Regular rate, Normal S1, Normal S2 Respiratory: Chest non-tender, No respiratory distress, Other (Diminished breath sounds due to body habitus) Abdomen: Normal bowel sounds, Soft, Other (obses abdomen) Extremities: Other (Dry scaly skin. Venostasis changes. +1 edema) - Results Results: Laboratory Results WBC 5.7 x10^3/uL (4.8-10.8) 08/21/21 04:06 RBC 4.97 10^6/uL (4.70-6.10) 08/21/21 04:06 Hgb 11.9 g/dL (14.0-18.0) L 08/21/21 04:06 Hct 44.0 % (42.0-52.0) 08/21/21 04:06 MCV 88.5 fL (80.0-94.0) 08/21/21 04:06 MCH 23.9 pg (27.0-31.0) L 08/21/21 04:06 MCHC 27.0 g/dL (32.0-36.0) L 08/21/21 04:06 RDW 16.7 % (12.0-15.0) H 08/21/21 04:06 Plt Count 191 10^3/uL (130-450) 08/21/21 04:06 MPV 11.3 fL (7.4-11.4) 08/21/21 04:06 Neut # (Auto) 4.1 10^3/uL (1.5-6.6) 08/21/21 04:06 Lymph # (Auto) 0.9 10^3/uL (1.5-3.5) L 08/21/21 04:06 [place] # (Auto) 0.4 10^3/uL (0.0-1.0) 08/21/21 04:06 Eos # (Auto) 0.2 10^3/uL (0.0-0.7) 08/21/21 04:06 Baso # (Auto) 0.0 10^3/uL (0.0-0.1) 08/21/21 04:06 Absolute Nucleated RBC 0.00 x10^3/uL 08/21/21 04:06 Nucleated RBC % 0.0 /100WBC 08/21/21 04:06 Manual Slide Review Indicated 08/21/21 04:06 WBC Morphology NORMAL APPEARANCE (NORMAL) 08/21/21 04:06 Platelet Estimate NORMAL (130-450,000) (NORMAL) 08/21/21 04:06 Platelet Morphology NORMAL APPEARANCE (NORMAL) 08/21/21 04:06 RBC Morph Micro Appear 1+ HYPOCHROMASIA (NORMAL) 3+ STOMATOCYTES (NORMAL) 08/21/21 04:06 RBC Morph Micro Appear 1+ HYPOCHROMASIA (NORMAL) 3+ STOMATOCYTES (NORMAL) 08/21/21 04:06 Bld Gas Analysis Time 0950 08/19/21 09:50 Sample Site RIGHT RADIAL 08/19/21 09:50 ABG pH 7.39 (7.35-7.45) 08/19/21 09:50 ABG pCO2 78 mmHg (34-45) H* 08/19/21 09:50 ABG pO2 92 mmHg (80-100) 08/19/21 09:50 ABG HCO3 46.2 mmol/L (22.0-26.0) H 08/19/21 09:50 ABG Total CO2 48.6 MMOL/L (21.0-29.0) H* 08/19/21 09:50 ABG O2 Saturation 97 % (94-98) 08/19/21 09:50 ABG Base Excess 17.2 mmol/L (-2.0-3.0) H 08/19/21 09:50 Reynaldo Test POSITIVE 08/19/21 09:50 VBG pH 7.170 (7.31-7.41) L 08/12/21 11:22 VBG pCO2 102.1 mmHg (41-51) H 08/12/21 11:22 VBG pO2 85.8 mmHg (25-47) H 08/12/21 11:22 VBG HCO3 36.4 mmol/L (23-28) H 08/12/21 11:22 VBG Total CO2 39.5 mmol/L (24-29) H 08/12/21 11:22 VBG O2 Saturation 95.4 % (60-80) H 08/12/21 11:22 VBG Base Excess 3.6 mmol/L (-2 - +2) H 08/12/21 11:22 Respiration Rate 15 b/min 08/19/21 09:50 O2 Delivery Device BiPAP 08/19/21 09:50 Vent Mode SYNCHRONOUS/TIMES 08/19/21 09:50 FiO2 35.00 08/19/21 09:50 Pressure Support Vent 3 cmH2O 08/12/21 18:15 EPAP 8 cmH2O 08/19/21 09:50 IPAP 16 cmH2O 08/19/21 09:50 Sodium 141 mmol/L (135-145) 08/21/21 04:06 Potassium 4.4 mmol/L (3.5-5.0) 08/21/21 04:06 Chloride 88 mmol/L (101-111) L 08/21/21 04:06 Carbon Dioxide 47 mmol/L (21-32) H* 08/21/21 04:06 Anion Gap 6.0 (6-13) 08/21/21 04:06 BUN 23 mg/dL (6-20) H 08/21/21 04:06 Creatinine 0.8 mg/dL (0.6-1.2) 08/21/21 04:06 Estimated GFR (MDRD) 96 (>89) 08/21/21 04:06 Glucose 227 mg/dL (70-100) H 08/21/21 04:06 POC Whole Bld Glucose 189 mg/dL (70 - 100) H 08/21/21 06:16 Estimat Average Glucose 146 mg/dL (70-100) H 08/13/21 14:53 Hemoglobin A1c % 6.7 % (4.27-6.07) H 08/13/21 14:53 Calcium 8.8 mg/dL (8.5-10.3) 08/21/21 04:06 Phosphorus 3.1 mg/dL (2.5-4.6) 08/19/21 04:03 Magnesium 1.9 mg/dL (1.7-2.8) 08/19/21 04:03 Total Bilirubin 0.6 mg/dL (0.2-1.0) 08/12/21 08:40 AST 14 IU/L (10-42) 08/12/21 08:40 ALT 15 IU/L (10-60) 08/12/21 08:40 Alkaline Phosphatase 119 IU/L (42-121) 08/12/21 08:40 Troponin I High Sens 27.4 ng/L (2.3-19.7) H* 08/12/21 11:22 B-Natriuretic Peptide 161 pg/mL (5-100) H 08/12/21 08:40 Total Protein 7.2 g/dL (6.7-8.2) 08/12/21 08:40 Albumin 3.2 g/dL (3.2-5.5) 08/12/21 08:40 Globulin 4.0 g/dL (2.1-4.2) 08/12/21 08:40 Albumin/Globulin Ratio 0.8 (1.0-2.2) L 08/12/21 08:40 Lipase 30 U/L (22-51) 08/12/21 08:40 Nasal Adenovirus (PCR) NOT DETECTED 08/12/21 08:40 Nasal B. parapertussis DNA (PCR) NOT DETECTED 08/12/21 08:40 Nasal Coronavir 229E PCR NOT DETECTED 08/12/21 08:40 Nasal Coronavir HKU1 PCR NOT DETECTED 08/12/21 08:40 Nasal Coronavir NL63 PCR NOT DETECTED 08/12/21 08:40 Nasal Coronavir OC43 PCR NOT DETECTED 08/12/21 08:40 Nasal Enterovir/Rhinovir PCR NOT DETECTED 08/12/21 08:40 Nasal Influenza B PCR NOT DETECTED 08/12/21 08:40 Nasal Influenza A PCR NOT DETECTED 08/12/21 08:40 Nasal Parainfluen 1 PCR NOT DETECTED 08/12/21 08:40 Nasal Parainfluen 2 PCR NOT DETECTED 08/12/21 08:40 Nasal Parainfluen 3 PCR NOT DETECTED 08/12/21 08:40 Nasal Parainfluen 4 PCR NOT DETECTED 08/12/21 08:40 Nasal RSV (PCR) NOT DETECTED 08/12/21 08:40 Nasal Screen MRSA (PCR) NEGATIVE (NEGATIVE) 08/12/21 14:00 Nasal B.pertussis DNA PCR NOT DETECTED 08/12/21 08:40 Nasal C.pneumoniae (PCR) NOT DETECTED 08/12/21 08:40 Armando Human Metapneumo PCR NOT DETECTED 08/12/21 08:40 Nasal M.pneumoniae (PCR) NOT DETECTED 08/12/21 08:40 Nasal SARS-CoV-2 (PCR) NOT DETECTED 08/12/21 08:40 - Procedures Procedures: Procedures ENDOSC POLYPECTOMY OF LG INTEST (02/27/14) ABX Reporting Has patient been on IV antibiotics over the past 48 hours?: No
[2021-08-21] MEDS: ATORVASTATIN 40 MG TABLET PO SCH (20:36)
[2021-08-22 05:02] LABS: BASOPHILS % (AUTO) 0.4 %; EOSINOPHILS # (AUTO) 0.2 10^3/uL (0.0-0.7); EOSINOPHILS % (AUTO) 2.6 %; HCT - HEMATOCRIT 43.2 % (42.0-52.0); HGB - HEMOGLOBIN 11.7 g/dL (14.0-18.0); MEAN CORPUSCULAR HGB CONC 27.1 g/dL (32.0-36.0); MEAN CORPUSCULAR VOLUME 88.5 fL (80.0-94.0); MEAN PLATELET VOLUME 10.4 fL (7.4-11.4); MONOCYTES # (AUTO) 0.5 10^3/uL (0.0-1.0); MONOCYTES % (AUTO) 7.9 %; NEUTROPHILS % (AUTO) 70.6 %; PLT - PLATELET COUNT 188 10^3/uL (130-450); RED BLOOD COUNT 4.88 10^6/uL (4.70-6.10); RED CELL DISTRIBUTION WIDTH 16.9 % (12.0-15.0); WHITE BLOOD COUNT 5.7 x10^3/uL (4.8-10.8)
[2021-08-22 05:07] LABS: SLIDE REVIEW? Indicated
[2021-08-22 05:11] LABS: BUN - BLOOD UREA NITROGEN 27 mg/dL (6-20); CALCIUM 8.7 mg/dL (8.5-10.3); CHLORIDE 86 mmol/L (101-111); GFR - MDRD 74 (>89); GLUCOSE 257 mg/dL (70-100); POTASSIUM 4.2 mmol/L (3.5-5.0); SODIUM 140 mmol/L (135-145)
[2021-08-22 05:12] LABS: CARBON DIOXIDE - CO2 > 45 mmol/L (21-32)
[2021-08-22 05:26] LABS: PLATELET ESTIMATE, MANUAL NORMAL (130-450,000) (NORMAL); PLATELET MORPHOLOGY NORMAL APPEARANCE (NORMAL); WBC MORPHOLOGY (MULTIPLE) NORMAL APPEARANCE (NORMAL)
[2021-08-22] MEDS: INSULIN GLARGINE 300 UNIT/3 ML PEN SUBQ SCH ×2 (05:41→17:36)
[2021-08-22] MEDS: FUROSEMIDE 40 MG TABLET PO SCH ×2 (05:41→13:59)
--- NOTE | 2021-08-22 08:03 | PROVIDER PROGRESS NOTE ---
Assessment/Plan - Problem List (1) Acute on chronic respiratory failure with hypoxia and hypercapnia Assessment/Plan: Continue bipap qhs Patient remains alert and oriented X4 Continue lasix 40mg po bid (2) CO2 narcosis Assessment/Plan: Continue bipap qhs Patient remains alert and oriented X4 Continue lasix 40mg po bid (3) Chronic venous stasis dermatitis of both lower extremities Assessment/Plan: Continue to wrap lower extremities with Jon wrap compressions and elevate legs. Continue Lasix 40 mg p.o. twice daily. (5) YONATAN on CPAP Assessment/Plan: On BiPAP nightly. (6) Obesity hypoventilation syndrome Assessment/Plan: On BiPAP nightly. (7) Controlled type 2 diabetes mellitus without complication, with long-term current use of insulin Assessment/Plan: Lantus 15 units twice daily Acuc checks qAC and HS, sliding scale insulin (8) Self neglect Assessment/Plan: Social work/case management continues to assist in finding placement. To date the attempts have been unsuccessful. We will continue to try. (9) AVB (atrioventricular block) Assessment/Plan: No recurrence It was reported and captured on telemetry overnight on 08/18/21 that the patient had an episode of atrial tachycardia with complete heart block. He was asleep at the time but also asymptomatic. Patient's heart rate on telemetry at the time was 56. A 12-lead EKG done on 08/19/2021 around 8:30 AM showed sinus rhythm with a prolonged [place] interval greater than 220. 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 The question was about the need for transfer in order to have a cardiology consult and possible pacemaker. Dr. Cardona advised continued management of obesity hypoventilation, sleep apnea and CO2 narcosis. Transfer and no intervention was not indicated at this time. He highlights that this was a brief occurrence during which the patient was asymptomatic and is currently in sinus rhythm. Further that if it occurred again the patient may benefit from Holter monitor. We will continue monitoring the patient on telemetry. - Current Meds Current Meds: Current Medications Generic Name Dose Route Start Last Admin Trade Name Freq PRN Reason Stop Dose Admin Acetaminophen 650 mg 08/12/21 10:28 08/19/21 15:03 Acetaminophen 325 Mg Tablet PO 650 mg Q4HR PRN Administration Pain 1 to 4 Atorvastatin Calcium 80 mg 08/17/21 21:00 08/21/21 20:36 Atorvastatin 40 Mg Tablet PO 80 mg QPM JAYNA Administration Docusate Sodium 250 - 500 mg 08/14/21 09:00 08/21/21 09:09 Docusate Sodium 250 Mg Capsule PO Not Given DAILY JAYNA Enoxaparin Sodium 40 mg 08/13/21 09:00 08/21/21 20:36 Enoxaparin 40 Mg/0.4 Ml Syringe SUBQ 40 mg BID JAYNA Administration Furosemide 40 mg 08/17/21 18:00 08/22/21 05:41 Furosemide 40 Mg Tablet PO 40 mg BIDDIURETIC JAYNA Administration Insulin Aspart 1 - 9 unit 08/19/21 21:00 08/21/21 20:36 Insulin Aspart 300 Unit/3 Ml Pen SUBQ 5 unit 0800,1200,1700,2100 JAYNA Administration Protocol Insulin Aspart 7 unit 08/20/21 17:00 08/21/21 17:07 Insulin Aspart 300 Unit/3 Ml Pen SUBQ 7 unit TIDWM JAYNA Administration Losartan Potassium 100 mg 08/18/21 09:00 08/21/21 09:09 Losartan 50 Mg Tablet PO 100 mg DAILY JAYNA Administration Mineral Oil 1 applic 08/17/21 09:49 08/19/21 06:06 Min Oil/Dimethicon/Coconut Oil 92 Gm Tube TOP 1 applic PRN PRN Administration Skin Care Nystatin 1 applic 08/16/21 21:00 08/21/21 20:37 Nystatin Powder 15 Gm TOP 1 applic BID JAYNA Administration Oxycodone HCl 5 mg 08/12/21 10:28 08/15/21 05:07 Oxycodone 5 Mg Tablet PO 5 mg Q4HR PRN Administration Pain 5 to 7 Polyethylene Glycol 17 gm 08/16/21 17:04 08/21/21 09:09 Polyethylene Glycol 3350 17 Gm Packet PO Not Given DAILY JAYNA Senna 8.6 - 17.2 mg 08/14/21 09:00 08/21/21 09:10 Senna 8.6 Mg Tablet PO Not Given DAILY JAYNA Sertraline HCl 200 mg 08/13/21 21:00 08/21/21 09:09 Sertraline 50 Mg Tablet PO 200 mg DAILY JAYNA Administration Sodium Chloride 10 ml 08/12/21 10:28 08/21/21 07:52 Sodium Chloride Flush 0.9% 10 Ml Syringe IVP 10 ml PRN PRN Administration NEEDED PER PROVIDER ORDERS Tamsulosin HCl 0.4 mg 08/13/21 09:00 08/21/21 09:09 Tamsulosin 0.4 Mg Capsule PO 0.4 mg DAILY JAYNA Administration - Lab Result Fish Bone Diagrams: 08/22/21 04:37 08/22/21 04:37 - Additional Planning My Orders: My Active Orders 08/22/21 18:00 Insulin Glargine [Lantus Solostar] 20 unit SUBQ 0600,1800 08/23/21 05:00 BMP - BASIC METABOLIC PANEL [CHEM] DAILYLAB CBC - COMP BLD CT W/AUTO DIFF [HEME] DAILYLAB 08/24/21 05:00 BMP - BASIC METABOLIC PANEL [CHEM] DAILYLAB CBC - COMP BLD CT W/AUTO DIFF [HEME] DAILYLAB Subjective - Subjective Patient Reports: Other (Resting comfortably in bed with BiPAP on. Denied any complaints.) Objective Vital Signs: Vital Signs - 24 hr 08/21/21 08/21/21 08/21/21 09:09 10:59 13:00 Temperature Heart Rate 60 Heart Rate [ 78 60 Monitoring electrodes] Respiratory 23 19 Rate Blood Pressure 139/61 H [Left Brachial artery] O2 Saturation 96 94 08/21/21 08/21/21 08/21/21 15:44 18:35 19:39 Temperature 37.4 C 36.9 C Heart Rate 62 Heart Rate [ 75 68 Monitoring electrodes] Respiratory 25 H 23 Rate Blood Pressure 124/50 L 134/53 H [Left Brachial artery] O2 Saturation 95 93 08/21/21 08/21/21 08/22/21 22:15 23:39 01:25 Temperature 36.9 C Heart Rate 65 71 Heart Rate [ 72 Monitoring electrodes] Respiratory 22 Rate Blood Pressure 111/54 L [Left Brachial artery] O2 Saturation 95 08/22/21 08/22/21 05:00 05:10 Temperature 36.9 C Heart Rate 73 Heart Rate [ 73 Monitoring electrodes] Respiratory 22 Rate Blood Pressure 144/56 H [Left Brachial artery] O2 Saturation 99 Oxygen O2 Source Nasal cannula Oxygen Flow Rate 4 I&O (Last 24 Hrs): Intake and Output Totals x24h 08/20/21 08/21/21 08/22/21 23:59 23:59 23:59 Intake Total 1950 820 Output Total 3125 1775 350 [facility]8055 -955 -350 Comments/Notes: General: Alert, Oriented x3, No acute distress HEENT: PERRLA, EOMI Neck: No JVD Neuro: Alert, Oriented Times 3 Cardiovascular: Regular rate, Normal S1, Normal S2 Respiratory: Chest non-tender, No respiratory distress, Other (Diminished breath sounds due to body habitus) Abdomen: Normal bowel sounds, Soft, Other (obses abdomen) Extremities: Other (Dry scaly skin. Venostasis changes. +1 edema) - Results Results: Laboratory Results WBC 5.7 x10^3/uL (4.8-10.8) 08/22/21 04:37 RBC 4.88 10^6/uL (4.70-6.10) 08/22/21 04:37 Hgb 11.7 g/dL (14.0-18.0) L 08/22/21 04:37 Hct 43.2 % (42.0-52.0) 08/22/21 04:37 MCV 88.5 fL (80.0-94.0) 08/22/21 04:37 MCH 24.0 pg (27.0-31.0) L 08/22/21 04:37 MCHC 27.1 g/dL (32.0-36.0) L 08/22/21 04:37 RDW 16.9 % (12.0-15.0) H 08/22/21 04:37 Plt Count 188 10^3/uL (130-450) 08/22/21 04:37 MPV 10.4 fL (7.4-11.4) 08/22/21 04:37 Neut # (Auto) 4.0 10^3/uL (1.5-6.6) 08/22/21 04:37 Lymph # (Auto) 1.0 10^3/uL (1.5-3.5) L 08/22/21 04:37 [place] # (Auto) 0.5 10^3/uL (0.0-1.0) 08/22/21 04:37 Eos # (Auto) 0.2 10^3/uL (0.0-0.7) 08/22/21 04:37 Baso # (Auto) 0.0 10^3/uL (0.0-0.1) 08/22/21 04:37 Absolute Nucleated RBC 0.00 x10^3/uL 08/22/21 04:37 Nucleated RBC % 0.0 /100WBC 08/22/21 04:37 Manual Slide Review Indicated 08/22/21 04:37 WBC Morphology NORMAL APPEARANCE (NORMAL) 08/22/21 04:37 Platelet Estimate NORMAL (130-450,000) (NORMAL) 08/22/21 04:37 Platelet Morphology NORMAL APPEARANCE (NORMAL) 08/22/21 04:37 RBC Morph Micro Appear 1+ HYPOCHROMASIA (NORMAL) 2+ STOMATOCYTES (NORMAL) 08/22/21 04:37 RBC Morph Micro Appear 1+ HYPOCHROMASIA (NORMAL) 2+ STOMATOCYTES (NORMAL) 08/22/21 04:37 Bld Gas Analysis Time 0950 08/19/21 09:50 Sample Site RIGHT RADIAL 08/19/21 09:50 ABG pH 7.39 (7.35-7.45) 08/19/21 09:50 ABG pCO2 78 mmHg (34-45) H* 08/19/21 09:50 ABG pO2 92 mmHg (80-100) 08/19/21 09:50 ABG HCO3 46.2 mmol/L (22.0-26.0) H 08/19/21 09:50 ABG Total CO2 48.6 MMOL/L (21.0-29.0) H* 08/19/21 09:50 ABG O2 Saturation 97 % (94-98) 08/19/21 09:50 ABG Base Excess 17.2 mmol/L (-2.0-3.0) H 08/19/21 09:50 Reynaldo Test POSITIVE 08/19/21 09:50 VBG pH 7.170 (7.31-7.41) L 08/12/21 11:22 VBG pCO2 102.1 mmHg (41-51) H 08/12/21 11:22 VBG pO2 85.8 mmHg (25-47) H 08/12/21 11:22 VBG HCO3 36.4 mmol/L (23-28) H 08/12/21 11:22 VBG Total CO2 39.5 mmol/L (24-29) H 08/12/21 11:22 VBG O2 Saturation 95.4 % (60-80) H 08/12/21 11:22 VBG Base Excess 3.6 mmol/L (-2 - +2) H 08/12/21 11:22 Respiration Rate 15 b/min 08/19/21 09:50 O2 Delivery Device BiPAP 08/19/21 09:50 Vent Mode SYNCHRONOUS/TIMES 08/19/21 09:50 FiO2 35.00 08/19/21 09:50 Pressure Support Vent 3 cmH2O 08/12/21 18:15 EPAP 8 cmH2O 08/19/21 09:50 IPAP 16 cmH2O 08/19/21 09:50 Sodium 140 mmol/L (135-145) 08/22/21 04:37 Potassium 4.2 mmol/L (3.5-5.0) 08/22/21 04:37 Chloride 86 mmol/L (101-111) L 08/22/21 04:37 Carbon Dioxide > 45 mmol/L (21-32) H* 08/22/21 04:37 Anion Gap 8.0 (6-13) 08/22/21 04:37 BUN 27 mg/dL (6-20) H 08/22/21 04:37 Creatinine 1.0 mg/dL (0.6-1.2) 08/22/21 04:37 Estimated GFR (MDRD) 74 (>89) L 08/22/21 04:37 Glucose 257 mg/dL (70-100) H 08/22/21 04:37 POC Whole Bld Glucose 268 mg/dL (70 - 100) H 08/22/21 07:41 Estimat Average Glucose 146 mg/dL (70-100) H 08/13/21 14:53 Hemoglobin A1c % 6.7 % (4.27-6.07) H 08/13/21 14:53 Calcium 8.7 mg/dL (8.5-10.3) 08/22/21 04:37 Phosphorus 3.1 mg/dL (2.5-4.6) 08/19/21 04:03 Magnesium 1.9 mg/dL (1.7-2.8) 08/19/21 04:03 Total Bilirubin 0.6 mg/dL (0.2-1.0) 08/12/21 08:40 AST 14 IU/L (10-42) 08/12/21 08:40 ALT 15 IU/L (10-60) 08/12/21 08:40 Alkaline Phosphatase 119 IU/L (42-121) 08/12/21 08:40 Troponin I High Sens 27.4 ng/L (2.3-19.7) H* 08/12/21 11:22 B-Natriuretic Peptide 161 pg/mL (5-100) H 08/12/21 08:40 Total Protein 7.2 g/dL (6.7-8.2) 08/12/21 08:40 Albumin 3.2 g/dL (3.2-5.5) 08/12/21 08:40 Globulin 4.0 g/dL (2.1-4.2) 08/12/21 08:40 Albumin/Globulin Ratio 0.8 (1.0-2.2) L 08/12/21 08:40 Lipase 30 U/L (22-51) 08/12/21 08:40 Nasal Adenovirus (PCR) NOT DETECTED 08/12/21 08:40 Nasal B. parapertussis DNA (PCR) NOT DETECTED 08/12/21 08:40 Nasal Coronavir 229E PCR NOT DETECTED 08/12/21 08:40 Nasal Coronavir HKU1 PCR NOT DETECTED 08/12/21 08:40 Nasal Coronavir NL63 PCR NOT DETECTED 08/12/21 08:40 Nasal Coronavir OC43 PCR NOT DETECTED 08/12/21 08:40 Nasal Enterovir/Rhinovir PCR NOT DETECTED 08/12/21 08:40 Nasal Influenza B PCR NOT DETECTED 08/12/21 08:40 Nasal Influenza A PCR NOT DETECTED 08/12/21 08:40 Nasal Parainfluen 1 PCR NOT DETECTED 08/12/21 08:40 Nasal Parainfluen 2 PCR NOT DETECTED 08/12/21 08:40 Nasal Parainfluen 3 PCR NOT DETECTED 08/12/21 08:40 Nasal Parainfluen 4 PCR NOT DETECTED 08/12/21 08:40 Nasal RSV (PCR) NOT DETECTED 08/12/21 08:40 Nasal Screen MRSA (PCR) NEGATIVE (NEGATIVE) 08/12/21 14:00 Nasal B.pertussis DNA PCR NOT DETECTED 08/12/21 08:40 Nasal C.pneumoniae (PCR) NOT DETECTED 08/12/21 08:40 Armando Human Metapneumo PCR NOT DETECTED 08/12/21 08:40 Nasal M.pneumoniae (PCR) NOT DETECTED 08/12/21 08:40 Nasal SARS-CoV-2 (PCR) NOT DETECTED 08/12/21 08:40 - Procedures Procedures: Procedures ENDOSC POLYPECTOMY OF LG INTEST (02/27/14) ABX Reporting Has patient been on IV antibiotics over the past 48 hours?: No
[2021-08-22] MEDS: INSULIN ASPART 300 UNIT/3 ML PEN SUBQ SCH ×7 (08:11→20:43)
[2021-08-22] MEDS: TAMSULOSIN 0.4 MG CAPSULE PO SCH (08:24)
[2021-08-22] MEDS: SERTRALINE 50 MG TABLET PO SCH (08:25)
[2021-08-22] MEDS: LOSARTAN 50 MG TABLET PO SCH (08:26)
[2021-08-22] MEDS: SENNA 8.6 MG TABLET PO SCH (08:27)
[2021-08-22] MEDS: ENOXAPARIN 40 MG/0.4 ML SYRINGE SUBQ SCH ×2 (08:27→20:43)
[2021-08-22] MEDS: DOCUSATE SODIUM 250 MG CAPSULE PO SCH ×2 (08:27→13:59)
[2021-08-22] MEDS: polyethylene glycoL 3350 17 GM PACKET PO SCH (08:27)
[2021-08-22] MEDS: NYSTATIN POWDER 15 GM TOP SCH ×2 (11:21→20:43)
[2021-08-22] MEDS: ATORVASTATIN 40 MG TABLET PO SCH (20:43)
[2021-08-23 05:43] LABS: BASOPHILS % (AUTO) 0.4 %; EOSINOPHILS # (AUTO) 0.2 10^3/uL (0.0-0.7); EOSINOPHILS % (AUTO) 3.5 %; HGB - HEMOGLOBIN 12.1 g/dL (14.0-18.0); LYMPHOCYTES # (AUTO) 1.2 10^3/uL (1.5-3.5); LYMPHOCYTES % (AUTO) 22.9 %; MEAN CORPUSCULAR HEMOGLOBIN 23.4 pg (27.0-31.0); MEAN CORPUSCULAR HGB CONC 26.3 g/dL (32.0-36.0); MEAN PLATELET VOLUME 10.8 fL (7.4-11.4); MONOCYTES # (AUTO) 0.4 10^3/uL (0.0-1.0); MONOCYTES % (AUTO) 7.4 %; NEUTROPHILS # (AUTO) 3.4 10^3/uL (1.5-6.6); NEUTROPHILS % (AUTO) 65.4 %; PLT - PLATELET COUNT 202 10^3/uL (130-450); RED BLOOD COUNT 5.17 10^6/uL (4.70-6.10); RED CELL DISTRIBUTION WIDTH 16.9 % (12.0-15.0); WHITE BLOOD COUNT 5.1 x10^3/uL (4.8-10.8)
[2021-08-23 05:44] LABS: SLIDE REVIEW? Indicated
[2021-08-23] MEDS: FUROSEMIDE 40 MG TABLET PO SCH ×2 (06:02→13:24)
[2021-08-23] MEDS: INSULIN GLARGINE 300 UNIT/3 ML PEN SUBQ SCH ×2 (06:02→17:14)
[2021-08-23 06:03] LABS: CALCIUM 8.7 mg/dL (8.5-10.3); CREATININE 0.8 mg/dL (0.6-1.2)
[2021-08-23 06:24] LABS: PLATELET ESTIMATE, MANUAL NORMAL (130-450,000) (NORMAL); PLATELET MORPHOLOGY NORMAL APPEARANCE (NORMAL); RBC MORPHOLOGY (MULTIPLE) 1+ HYPOCHROMASIA (NORMAL); WBC MORPHOLOGY (MULTIPLE) NORMAL APPEARANCE (NORMAL)
--- NOTE | 2021-08-23 07:39 | PROVIDER PROGRESS NOTE ---
Assessment/Plan - Problem List (1) Acute on chronic respiratory failure with hypoxia and hypercapnia Assessment/Plan: Continue bipap qhs Patient remains alert and oriented X4 Continue lasix 40mg po bid (2) CO2 narcosis Assessment/Plan: Continue bipap qhs Patient remains alert and oriented X4 Continue lasix 40mg po bid (3) Chronic venous stasis dermatitis of both lower extremities Assessment/Plan: Continue to wrap lower extremities with Jon wrap compressions and elevate legs. Continue Lasix 40 mg p.o. twice daily. (5) YONATAN on CPAP Assessment/Plan: On BiPAP nightly. (6) Obesity hypoventilation syndrome Assessment/Plan: On BiPAP nightly. (7) Controlled type 2 diabetes mellitus without complication, with long-term current use of insulin Assessment/Plan: Lantus 15 units twice daily Acuc checks qAC and HS, sliding scale insulin (8) Self neglect Assessment/Plan: Social work/case management continues to assist in finding placement. To date the attempts have been unsuccessful. We will continue to try. (9) AVB (atrioventricular block) Assessment/Plan: No recurrence It was reported and captured on telemetry overnight on 08/18/21 that the patient had an episode of atrial tachycardia with complete heart block. He was asleep at the time but also asymptomatic. Patient's heart rate on telemetry at the time was 56. A 12-lead EKG done on 08/19/2021 around 8:30 AM showed sinus rhythm with a prolonged [place] interval greater than 220. 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 The question was about the need for transfer in order to have a cardiology consult and possible pacemaker. Dr. Cardona advised continued management of obesity hypoventilation, sleep apnea and CO2 narcosis. Transfer and no intervention was not indicated at this time. He highlights that this was a brief occurrence during which the patient was asymptomatic and is currently in sinus rhythm. Further that if it occurred again the patient may benefit from Holter monitor. We will continue monitoring the patient on telemetry. - Current Meds Current Meds: Current Medications Generic Name Dose Route Start Last Admin Trade Name Freq PRN Reason Stop Dose Admin Acetaminophen 650 mg 08/12/21 10:28 08/19/21 15:03 Acetaminophen 325 Mg Tablet PO 650 mg Q4HR PRN Administration Pain 1 to 4 Atorvastatin Calcium 80 mg 08/17/21 21:00 08/22/21 20:43 Atorvastatin 40 Mg Tablet PO 80 mg QPM JAYNA Administration Docusate Sodium 250 - 500 mg 08/14/21 09:00 08/22/21 13:59 Docusate Sodium 250 Mg Capsule PO 250 mg DAILY JAYNA Administration Enoxaparin Sodium 40 mg 08/13/21 09:00 08/22/21 20:43 Enoxaparin 40 Mg/0.4 Ml Syringe SUBQ 40 mg BID JAYNA Administration Furosemide 40 mg 08/17/21 18:00 08/23/21 06:02 Furosemide 40 Mg Tablet PO 40 mg BIDDIURETIC JAYNA Administration Insulin Aspart 7 unit 08/20/21 17:00 08/22/21 17:25 Insulin Aspart 300 Unit/3 Ml Pen SUBQ 7 unit TIDWM JAYNA Administration Insulin Aspart 2 - 10 unit 08/22/21 12:00 08/22/21 20:43 Insulin Aspart 300 Unit/3 Ml Pen SUBQ 4 unit 0800,1200,1700,2100 JAYNA Administration Protocol Insulin Glargine 20 unit 08/22/21 18:00 08/23/21 06:02 Insulin Glargine 300 Unit/3 Ml Pen SUBQ 20 unit 0600,1800 JAYNA Administration Losartan Potassium 100 mg 08/18/21 09:00 08/22/21 08:26 Losartan 50 Mg Tablet PO 100 mg DAILY JAYNA Administration Mineral Oil 1 applic 08/17/21 09:49 08/19/21 06:06 Min Oil/Dimethicon/Coconut Oil 92 Gm Tube TOP 1 applic PRN PRN Administration Skin Care Nystatin 1 applic 08/16/21 21:00 08/22/21 20:43 Nystatin Powder 15 Gm TOP 1 applic BID JAYNA Administration Oxycodone HCl 5 mg 08/12/21 10:28 08/15/21 05:07 Oxycodone 5 Mg Tablet PO 5 mg Q4HR PRN Administration Pain 5 to 7 Polyethylene Glycol 17 gm 08/16/21 17:04 08/22/21 08:27 Polyethylene Glycol 3350 17 Gm Packet PO Not Given DAILY JAYNA Senna 8.6 - 17.2 mg 08/14/21 09:00 08/22/21 08:27 Senna 8.6 Mg Tablet PO Not Given DAILY JAYNA Sertraline HCl 200 mg 08/13/21 21:00 08/22/21 08:25 Sertraline 50 Mg Tablet PO 200 mg DAILY JAYNA Administration Sodium Chloride 10 ml 08/12/21 10:28 08/21/21 07:52 Sodium Chloride Flush 0.9% 10 Ml Syringe IVP 10 ml PRN PRN Administration NEEDED PER PROVIDER ORDERS Tamsulosin HCl 0.4 mg 08/13/21 09:00 08/22/21 08:24 Tamsulosin 0.4 Mg Capsule PO 0.4 mg DAILY JAYNA Administration - Lab Result Fish Bone Diagrams: 08/23/21 04:45 08/23/21 04:45 - Additional Planning My Orders: My Active Orders 08/22/21 Lunch Carb-controlled Diet [DIET] 08/22/21 18:00 Insulin Glargine [Lantus Solostar] 20 unit SUBQ 0600,1800 08/24/21 05:00 BMP - BASIC METABOLIC PANEL [CHEM] DAILYLAB CBC - COMP BLD CT W/AUTO DIFF [HEME] DAILYLAB Subjective - Subjective Patient Reports: Other (Sitting comfortably in bed. Denied any complaints. It is reported that patient did not tolerate his home CPAP last night and had to be switched back to the BiPAP) Objective Vital Signs: Vital Signs - 24 hr 08/22/21 08/22/21 08/22/21 09:00 12:51 15:54 Temperature 37.3 C 36.8 C 37.1 C Heart Rate Heart Rate [ 76 77 67 Monitoring electrodes] Respiratory 22 25 H 25 H Rate Blood Pressure 133/58 H 137/55 H 127/58 L [Left Brachial artery] O2 Saturation 95 98 95 08/22/21 08/23/21 08/23/21 21:00 00:00 01:00 Temperature 36.8 C Heart Rate 71 71 Heart Rate [ 60 Monitoring electrodes] Respiratory 23 Rate Blood Pressure 138/64 H [Left Brachial artery] O2 Saturation 95 08/23/21 04:05 Temperature 36.8 C Heart Rate Heart Rate [ 64 Monitoring electrodes] Respiratory 21 Rate Blood Pressure 121/68 [Left Brachial artery] O2 Saturation 98 Oxygen O2 Source BIPAP Oxygen Flow Rate 4 I&O (Last 24 Hrs): Intake and Output Totals x24h 08/21/21 08/22/21 08/23/21 23:59 23:59 23:59 Intake Total 820 240 Output Total 1775 1900 175 Balance -955 -1660 -315 General: Alert, Oriented x3, No acute distress HEENT: PERRLA, EOMI Neck: No JVD Neuro: Alert, Oriented Times 3 Cardiovascular: Regular rate, Normal S1, Normal S2 Respiratory: Chest non-tender, No respiratory distress (Diminished breath sounds due to body habitus) Abdomen: Normal bowel sounds, Soft, Other (Obese abdomen) Extremities: Other (Dry scaly skin. Venostasis changes. +1 edema) - Results Results: Laboratory Results WBC 5.1 x10^3/uL (4.8-10.8) 08/23/21 04:45 RBC 5.17 10^6/uL (4.70-6.10) 08/23/21 04:45 Hgb 12.1 g/dL (14.0-18.0) L 08/23/21 04:45 Hct 46.0 % (42.0-52.0) 08/23/21 04:45 MCV 89.0 fL (80.0-94.0) 08/23/21 04:45 MCH 23.4 pg (27.0-31.0) L 08/23/21 04:45 MCHC 26.3 g/dL (32.0-36.0) L 08/23/21 04:45 RDW 16.9 % (12.0-15.0) H 08/23/21 04:45 Plt Count 202 10^3/uL (130-450) 08/23/21 04:45 MPV 10.8 fL (7.4-11.4) 08/23/21 04:45 Neut # (Auto) 3.4 10^3/uL (1.5-6.6) 08/23/21 04:45 Lymph # (Auto) 1.2 10^3/uL (1.5-3.5) L 08/23/21 04:45 [place] # (Auto) 0.4 10^3/uL (0.0-1.0) 08/23/21 04:45 Eos # (Auto) 0.2 10^3/uL (0.0-0.7) 08/23/21 04:45 Baso # (Auto) 0.0 10^3/uL (0.0-0.1) 08/23/21 04:45 Absolute Nucleated RBC 0.00 x10^3/uL 08/23/21 04:45 Nucleated RBC % 0.0 /100WBC 08/23/21 04:45 Manual Slide Review Indicated 08/23/21 04:45 WBC Morphology NORMAL APPEARANCE (NORMAL) 08/23/21 04:45 Platelet Estimate NORMAL (130-450,000) (NORMAL) 08/23/21 04:45 Platelet Morphology NORMAL APPEARANCE (NORMAL) 08/23/21 04:45 RBC Morph Micro Appear 1+ HYPOCHROMASIA (NORMAL) 08/23/21 04:45 Bld Gas Analysis Time 0950 08/19/21 09:50 Sample Site RIGHT RADIAL 08/19/21 09:50 ABG pH 7.39 (7.35-7.45) 08/19/21 09:50 ABG pCO2 78 mmHg (34-45) H* 08/19/21 09:50 ABG pO2 92 mmHg (80-100) 08/19/21 09:50 ABG HCO3 46.2 mmol/L (22.0-26.0) H 08/19/21 09:50 ABG Total CO2 48.6 MMOL/L (21.0-29.0) H* 08/19/21 09:50 ABG O2 Saturation 97 % (94-98) 08/19/21 09:50 ABG Base Excess 17.2 mmol/L (-2.0-3.0) H 08/19/21 09:50 Reynaldo Test POSITIVE 08/19/21 09:50 VBG pH 7.170 (7.31-7.41) L 08/12/21 11:22 VBG pCO2 102.1 mmHg (41-51) H 08/12/21 11:22 VBG pO2 85.8 mmHg (25-47) H 08/12/21 11:22 VBG HCO3 36.4 mmol/L (23-28) H 08/12/21 11:22 VBG Total CO2 39.5 mmol/L (24-29) H 08/12/21 11:22 VBG O2 Saturation 95.4 % (60-80) H 08/12/21 11:22 VBG Base Excess 3.6 mmol/L (-2 - +2) H 08/12/21 11:22 Respiration Rate 15 b/min 08/19/21 09:50 O2 Delivery Device BiPAP 08/19/21 09:50 Vent Mode SYNCHRONOUS/TIMES 08/19/21 09:50 FiO2 35.00 08/19/21 09:50 Pressure Support Vent 3 cmH2O 08/12/21 18:15 EPAP 8 cmH2O 08/19/21 09:50 IPAP 16 cmH2O 08/19/21 09:50 Sodium 142 mmol/L (135-145) 08/23/21 04:45 Potassium 4.0 mmol/L (3.5-5.0) 08/23/21 04:45 Chloride 87 mmol/L (101-111) L 08/23/21 04:45 Carbon Dioxide 45 mmol/L (21-32) H* 08/23/21 04:45 Anion Gap 10.0 (6-13) 08/23/21 04:45 BUN 24 mg/dL (6-20) H 08/23/21 04:45 Creatinine 0.8 mg/dL (0.6-1.2) 08/23/21 04:45 Estimated GFR (MDRD) 96 (>89) 08/23/21 04:45 Glucose 177 mg/dL (70-100) H 08/23/21 04:45 POC Whole Bld Glucose 244 mg/dL (70 - 100) H 08/23/21 07:34 Estimat Average Glucose 146 mg/dL (70-100) H 08/13/21 14:53 Hemoglobin A1c % 6.7 % (4.27-6.07) H 08/13/21 14:53 Calcium 8.7 mg/dL (8.5-10.3) 08/23/21 04:45 Phosphorus 3.1 mg/dL (2.5-4.6) 08/19/21 04:03 Magnesium 1.9 mg/dL (1.7-2.8) 08/19/21 04:03 Total Bilirubin 0.6 mg/dL (0.2-1.0) 08/12/21 08:40 AST 14 IU/L (10-42) 08/12/21 08:40 ALT 15 IU/L (10-60) 08/12/21 08:40 Alkaline Phosphatase 119 IU/L (42-121) 08/12/21 08:40 Troponin I High Sens 27.4 ng/L (2.3-19.7) H* 08/12/21 11:22 B-Natriuretic Peptide 161 pg/mL (5-100) H 08/12/21 08:40 Total Protein 7.2 g/dL (6.7-8.2) 08/12/21 08:40 Albumin 3.2 g/dL (3.2-5.5) 08/12/21 08:40 Globulin 4.0 g/dL (2.1-4.2) 08/12/21 08:40 Albumin/Globulin Ratio 0.8 (1.0-2.2) L 08/12/21 08:40 Lipase 30 U/L (22-51) 08/12/21 08:40 Nasal Adenovirus (PCR) NOT DETECTED 08/12/21 08:40 Nasal B. parapertussis DNA (PCR) NOT DETECTED 08/12/21 08:40 Nasal Coronavir 229E PCR NOT DETECTED 08/12/21 08:40 Nasal Coronavir HKU1 PCR NOT DETECTED 08/12/21 08:40 Nasal Coronavir NL63 PCR NOT DETECTED 08/12/21 08:40 Nasal Coronavir OC43 PCR NOT DETECTED 08/12/21 08:40 Nasal Enterovir/Rhinovir PCR NOT DETECTED 08/12/21 08:40 Nasal Influenza B PCR NOT DETECTED 08/12/21 08:40 Nasal Influenza A PCR NOT DETECTED 08/12/21 08:40 Nasal Parainfluen 1 PCR NOT DETECTED 08/12/21 08:40 Nasal Parainfluen 2 PCR NOT DETECTED 08/12/21 08:40 Nasal Parainfluen 3 PCR NOT DETECTED 08/12/21 08:40 Nasal Parainfluen 4 PCR NOT DETECTED 08/12/21 08:40 Nasal RSV (PCR) NOT DETECTED 08/12/21 08:40 Nasal Screen MRSA (PCR) NEGATIVE (NEGATIVE) 08/12/21 14:00 Nasal B.pertussis DNA PCR NOT DETECTED 08/12/21 08:40 Nasal C.pneumoniae (PCR) NOT DETECTED 08/12/21 08:40 Armando Human Metapneumo PCR NOT DETECTED 08/12/21 08:40 Nasal M.pneumoniae (PCR) NOT DETECTED 08/12/21 08:40 Nasal SARS-CoV-2 (PCR) NOT DETECTED 08/12/21 08:40 - Procedures Procedures: Procedures ENDOSC POLYPECTOMY OF LG INTEST (02/27/14) ABX Reporting Has patient been on IV antibiotics over the past 48 hours?: No
[2021-08-23] MEDS: INSULIN ASPART 300 UNIT/3 ML PEN SUBQ SCH ×7 (08:20→20:49)
[2021-08-23] MEDS: polyethylene glycoL 3350 17 GM PACKET PO SCH (08:21)
[2021-08-23] MEDS: TAMSULOSIN 0.4 MG CAPSULE PO SCH (08:23)
[2021-08-23] MEDS: SERTRALINE 50 MG TABLET PO SCH (08:23)
[2021-08-23] MEDS: SENNA 8.6 MG TABLET PO SCH (08:23)
[2021-08-23] MEDS: ENOXAPARIN 40 MG/0.4 ML SYRINGE SUBQ SCH ×2 (08:23→20:49)
[2021-08-23] MEDS: LOSARTAN 50 MG TABLET PO SCH (08:23)
[2021-08-23] MEDS: NYSTATIN POWDER 15 GM TOP SCH ×2 (08:24→20:51)
[2021-08-23] MEDS: DOCUSATE SODIUM 250 MG CAPSULE PO SCH (08:31)
[2021-08-23] MEDS: SODIUM CHLORIDE FLUSH 0.9% 10 ML SYRINGE IVP PRN ×4 (08:34→20:50)
[2021-08-23] MEDS: ACETAMINOPHEN 325 MG TABLET PO PRN (17:48)
[2021-08-23] MEDS: ATORVASTATIN 40 MG TABLET PO SCH (20:50)
[2021-08-24 04:54] LABS: BASOPHILS % (AUTO) 0.6 %; EOSINOPHILS # (AUTO) 0.2 10^3/uL (0.0-0.7); EOSINOPHILS % (AUTO) 3.3 %; HCT - HEMATOCRIT 44.6 % (42.0-52.0); HGB - HEMOGLOBIN 11.8 g/dL (14.0-18.0); LYMPHOCYTES % (AUTO) 19.8 %; MEAN CORPUSCULAR HEMOGLOBIN 23.4 pg (27.0-31.0); MEAN CORPUSCULAR HGB CONC 26.5 g/dL (32.0-36.0); MEAN CORPUSCULAR VOLUME 88.5 fL (80.0-94.0); MEAN PLATELET VOLUME 10.4 fL (7.4-11.4); MONOCYTES # (AUTO) 0.4 10^3/uL (0.0-1.0); MONOCYTES % (AUTO) 6.7 %; NEUTROPHILS # (AUTO) 3.6 10^3/uL (1.5-6.6); NEUTROPHILS % (AUTO) 69.2 %; PLT - PLATELET COUNT 215 10^3/uL (130-450); RED BLOOD COUNT 5.04 10^6/uL (4.70-6.10); RED CELL DISTRIBUTION WIDTH 16.8 % (12.0-15.0); WHITE BLOOD COUNT 5.2 x10^3/uL (4.8-10.8)
[2021-08-24 05:02] LABS: CALCIUM 8.8 mg/dL (8.5-10.3); CREATININE 0.7 mg/dL (0.6-1.2); POTASSIUM 4.3 mmol/L (3.5-5.0)
[2021-08-24] MEDS: INSULIN GLARGINE 300 UNIT/3 ML PEN SUBQ SCH ×2 (05:52→17:50)
[2021-08-24] MEDS: FUROSEMIDE 40 MG TABLET PO SCH ×2 (05:52→13:18)
[2021-08-24] MEDS: INSULIN ASPART 300 UNIT/3 ML PEN SUBQ SCH ×7 (07:57→20:45)
--- NOTE | 2021-08-24 08:10 | PROVIDER PROGRESS NOTE ---
Assessment/Plan - Problem List (1) Acute on chronic respiratory failure with hypoxia and hypercapnia Assessment/Plan: Continue bipap qhs Patient remains alert and oriented X4 Continue lasix 40mg po bid (2) CO2 narcosis Assessment/Plan: Continue bipap qhs Patient remains alert and oriented X4 Continue lasix 40mg po bid (3) Chronic venous stasis dermatitis of both lower extremities Assessment/Plan: Continue to wrap lower extremities with Jon wrap compressions and elevate legs. Continue Lasix 40 mg p.o. twice daily. (5) YONATAN on CPAP Assessment/Plan: On BiPAP nightly. (6) Obesity hypoventilation syndrome Assessment/Plan: On BiPAP nightly. (7) Controlled type 2 diabetes mellitus without complication, with long-term current use of insulin Assessment/Plan: Lantus 15 units twice daily Acuc checks qAC and HS, sliding scale insulin (8) Self neglect Assessment/Plan: Social work/case management continues to assist in finding placement. To date the attempts have been unsuccessful. We will continue to try. (9) AVB (atrioventricular block) Assessment/Plan: No recurrence It was reported and captured on telemetry overnight on 08/18/21 that the patient had an episode of atrial tachycardia with complete heart block. He was asleep at the time but also asymptomatic. Patient's heart rate on telemetry at the time was 56. A 12-lead EKG done on 08/19/2021 around 8:30 AM showed sinus rhythm with a prolonged MA interval greater than 220. 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 The question was about the need for transfer in order to have a cardiology consult and possible pacemaker. Dr. Cardona advised continued management of obesity hypoventilation, sleep apnea and CO2 narcosis. Transfer and no intervention was not indicated at this time. He highlights that this was a brief occurrence during which the patient was asymptomatic and is currently in sinus rhythm. Further that if it occurred again the patient may benefit from Holter monitor. We will continue monitoring the patient on telemetry. - Current Meds Current Meds: Current Medications Generic Name Dose Route Start Last Admin Trade Name Freq PRN Reason Stop Dose Admin Acetaminophen 650 mg 08/12/21 10:28 08/23/21 17:48 Acetaminophen 325 Mg Tablet PO 650 mg Q4HR PRN Administration Pain 1 to 4 Atorvastatin Calcium 80 mg 08/17/21 21:00 08/23/21 20:50 Atorvastatin 40 Mg Tablet PO 80 mg QPM JAYNA Administration Docusate Sodium 250 - 500 mg 08/23/21 09:00 08/23/21 08:31 Docusate Sodium 250 Mg Capsule PO 250 mg DAILY JAYNA Administration Enoxaparin Sodium 40 mg 08/13/21 09:00 08/23/21 20:49 Enoxaparin 40 Mg/0.4 Ml Syringe SUBQ 40 mg BID JAYNA Administration Furosemide 40 mg 08/17/21 18:00 08/24/21 05:52 Furosemide 40 Mg Tablet PO 40 mg BIDDIURETIC JAYNA Administration Insulin Aspart 7 unit 08/20/21 17:00 08/24/21 07:57 Insulin Aspart 300 Unit/3 Ml Pen SUBQ 7 unit TIDWM JAYNA Administration Insulin Aspart 3 - 11 unit 08/23/21 12:45 08/24/21 07:59 Insulin Aspart 300 Unit/3 Ml Pen SUBQ 5 unit 0800,1200,1700,2100 JAYNA Administration Protocol Insulin Glargine 20 unit 08/22/21 18:00 08/24/21 05:52 Insulin Glargine 300 Unit/3 Ml Pen SUBQ 20 unit 0600,1800 JAYNA Administration Losartan Potassium 100 mg 08/18/21 09:00 08/23/21 08:23 Losartan 50 Mg Tablet PO 100 mg DAILY JAYNA Administration Mineral Oil 1 applic 08/17/21 09:49 08/19/21 06:06 Min Oil/Dimethicon/Coconut Oil 92 Gm Tube TOP 1 applic PRN PRN Administration Skin Care Nystatin 1 applic 08/16/21 21:00 08/23/21 20:51 Nystatin Powder 15 Gm TOP 1 applic BID JAYNA Administration Oxycodone HCl 5 mg 08/12/21 10:28 08/15/21 05:07 Oxycodone 5 Mg Tablet PO 5 mg Q4HR PRN Administration Pain 5 to 7 Polyethylene Glycol 17 gm 08/16/21 17:04 08/23/21 08:21 Polyethylene Glycol 3350 17 Gm Packet PO 17 gm DAILY JAYNA Administration Senna 8.6 - 17.2 mg 08/14/21 09:00 08/23/21 08:23 Senna 8.6 Mg Tablet PO 8.6 mg DAILY JAYNA Administration Sertraline HCl 200 mg 08/13/21 21:00 08/23/21 08:23 Sertraline 50 Mg Tablet PO 200 mg DAILY JAYNA Administration Sodium Chloride 10 ml 08/12/21 10:28 08/23/21 20:50 Sodium Chloride Flush 0.9% 10 Ml Syringe IVP 10 ml PRN PRN Administration NEEDED PER PROVIDER ORDERS Tamsulosin HCl 0.4 mg 08/13/21 09:00 08/23/21 08:23 Tamsulosin 0.4 Mg Capsule PO 0.4 mg DAILY JAYNA Administration - Lab Result Fish Bone Diagrams: 08/24/21 04:02 08/24/21 04:02 Subjective - Subjective Patient Reports: Other (Resting comfortably in bed. Denied any complaints. It is reported that patient did not tolerate his home CPAP last night and had to be switched back to the BiPAP) Objective Vital Signs: Vital Signs - 24 hr 08/23/21 08/23/21 08/23/21 08:13 11:47 16:30 Temperature 36.9 C 37.2 C 37 C Heart Rate Heart Rate [ 74 66 65 Monitoring electrodes] Respiratory 25 H 21 22 Rate Blood Pressure 126/54 L 131/52 H 132/57 H [Left Brachial artery] O2 Saturation 99 98 97 08/23/21 08/23/21 08/23/21 17:42 19:28 23:41 Temperature 36.7 C Heart Rate 71 Heart Rate [ 72 76 Monitoring electrodes] Respiratory 22 22 Rate Blood Pressure 135/51 H 126/51 L [Left Brachial artery] O2 Saturation 99 97 08/24/21 08/24/21 08/24/21 01:00 03:00 03:48 Temperature 37.0 C 37.0 C Heart Rate 71 Heart Rate [ 59 L 74 Monitoring electrodes] Respiratory 20 21 Rate Blood Pressure 132/69 H 129/57 L [Left Brachial artery] O2 Saturation 95 96 08/24/21 08/24/21 05:31 07:25 Temperature 37.0 C Heart Rate 70 Heart Rate [ 70 Monitoring electrodes] Respiratory 24 Rate Blood Pressure 158/77 H [Left Brachial artery] O2 Saturation 96 Oxygen O2 Source Nasal cannula Oxygen Flow Rate 4 I&O (Last 24 Hrs): Intake and Output Totals x24h 08/22/21 08/23/21 08/24/21 23:59 23:59 23:59 Intake Total 240 1400 390 Output Total 1900 1530 725 Balance -1660 -130 -335 Comments/Notes: General: Alert, Oriented x3, No acute distress HEENT: PERRLA, EOMI Neck: No JVD Neuro: Alert, Oriented Times 3 Cardiovascular: Regular rate, Normal S1, Normal S2 Respiratory: Chest non-tender, No respiratory distress (Diminished breath sounds due to body habitus) Abdomen: Normal bowel sounds, Soft, Other (Obese abdomen) Extremities: Other (Dry scaly skin. Venostasis changes. +1 edema) - Results Results: Laboratory Results WBC 5.2 x10^3/uL (4.8-10.8) 08/24/21 04:02 RBC 5.04 10^6/uL (4.70-6.10) 08/24/21 04:02 Hgb 11.8 g/dL (14.0-18.0) L 08/24/21 04:02 Hct 44.6 % (42.0-52.0) 08/24/21 04:02 MCV 88.5 fL (80.0-94.0) 08/24/21 04:02 MCH 23.4 pg (27.0-31.0) L 08/24/21 04:02 MCHC 26.5 g/dL (32.0-36.0) L 08/24/21 04:02 RDW 16.8 % (12.0-15.0) H 08/24/21 04:02 Plt Count 215 10^3/uL (130-450) 08/24/21 04:02 MPV 10.4 fL (7.4-11.4) 08/24/21 04:02 Neut # (Auto) 3.6 10^3/uL (1.5-6.6) 08/24/21 04:02 Lymph # (Auto) 1.0 10^3/uL (1.5-3.5) L 08/24/21 04:02 [place] # (Auto) 0.4 10^3/uL (0.0-1.0) 08/24/21 04:02 Eos # (Auto) 0.2 10^3/uL (0.0-0.7) 08/24/21 04:02 Baso # (Auto) 0.0 10^3/uL (0.0-0.1) 08/24/21 04:02 Absolute Nucleated RBC 0.00 x10^3/uL 08/24/21 04:02 Nucleated RBC % 0.0 /100WBC 08/24/21 04:02 Manual Slide Review Indicated 08/23/21 04:45 WBC Morphology NORMAL APPEARANCE (NORMAL) 08/23/21 04:45 Platelet Estimate NORMAL (130-450,000) (NORMAL) 08/23/21 04:45 Platelet Morphology NORMAL APPEARANCE (NORMAL) 08/23/21 04:45 RBC Morph Micro Appear 1+ HYPOCHROMASIA (NORMAL) 08/23/21 04:45 Bld Gas Analysis Time 0950 08/19/21 09:50 Sample Site RIGHT RADIAL 08/19/21 09:50 ABG pH 7.39 (7.35-7.45) 08/19/21 09:50 ABG pCO2 78 mmHg (34-45) H* 08/19/21 09:50 ABG pO2 92 mmHg (80-100) 08/19/21 09:50 ABG HCO3 46.2 mmol/L (22.0-26.0) H 08/19/21 09:50 ABG Total CO2 48.6 MMOL/L (21.0-29.0) H* 08/19/21 09:50 ABG O2 Saturation 97 % (94-98) 08/19/21 09:50 ABG Base Excess 17.2 mmol/L (-2.0-3.0) H 08/19/21 09:50 Reynaldo Test POSITIVE 08/19/21 09:50 VBG pH 7.170 (7.31-7.41) L 08/12/21 11:22 VBG pCO2 102.1 mmHg (41-51) H 08/12/21 11:22 VBG pO2 85.8 mmHg (25-47) H 08/12/21 11:22 VBG HCO3 36.4 mmol/L (23-28) H 08/12/21 11:22 VBG Total CO2 39.5 mmol/L (24-29) H 08/12/21 11:22 VBG O2 Saturation 95.4 % (60-80) H 08/12/21 11:22 VBG Base Excess 3.6 mmol/L (-2 - +2) H 08/12/21 11:22 Respiration Rate 15 b/min 08/19/21 09:50 O2 Delivery Device BiPAP 08/19/21 09:50 Vent Mode SYNCHRONOUS/TIMES 08/19/21 09:50 FiO2 35.00 08/19/21 09:50 Pressure Support Vent 3 cmH2O 08/12/21 18:15 EPAP 8 cmH2O 08/19/21 09:50 IPAP 16 cmH2O 08/19/21 09:50 Sodium 142 mmol/L (135-145) 08/24/21 04:02 Potassium 4.3 mmol/L (3.5-5.0) 08/24/21 04:02 Chloride 86 mmol/L (101-111) L 08/24/21 04:02 Carbon Dioxide 48 mmol/L (21-32) H* 08/24/21 04:02 Anion Gap 8.0 (6-13) 08/24/21 04:02 BUN 24 mg/dL (6-20) H 08/24/21 04:02 Creatinine 0.7 mg/dL (0.6-1.2) 08/24/21 04:02 Estimated GFR (MDRD) 112 (>89) 08/24/21 04:02 Glucose 192 mg/dL (70-100) H 08/24/21 04:02 POC Whole Bld Glucose 181 mg/dL (70 - 100) H 08/24/21 07:33 Estimat Average Glucose 146 mg/dL (70-100) H 08/13/21 14:53 Hemoglobin A1c % 6.7 % (4.27-6.07) H 08/13/21 14:53 Calcium 8.8 mg/dL (8.5-10.3) 08/24/21 04:02 Phosphorus 3.1 mg/dL (2.5-4.6) 08/19/21 04:03 Magnesium 1.9 mg/dL (1.7-2.8) 08/19/21 04:03 Total Bilirubin 0.6 mg/dL (0.2-1.0) 08/12/21 08:40 AST 14 IU/L (10-42) 08/12/21 08:40 ALT 15 IU/L (10-60) 08/12/21 08:40 Alkaline Phosphatase 119 IU/L (42-121) 08/12/21 08:40 Troponin I High Sens 27.4 ng/L (2.3-19.7) H* 08/12/21 11:22 B-Natriuretic Peptide 161 pg/mL (5-100) H 08/12/21 08:40 Total Protein 7.2 g/dL (6.7-8.2) 08/12/21 08:40 Albumin 3.2 g/dL (3.2-5.5) 08/12/21 08:40 Globulin 4.0 g/dL (2.1-4.2) 08/12/21 08:40 Albumin/Globulin Ratio 0.8 (1.0-2.2) L 08/12/21 08:40 Lipase 30 U/L (22-51) 08/12/21 08:40 Nasal Adenovirus (PCR) NOT DETECTED 08/12/21 08:40 Nasal B. parapertussis DNA (PCR) NOT DETECTED 08/12/21 08:40 Nasal Coronavir 229E PCR NOT DETECTED 08/12/21 08:40 Nasal Coronavir HKU1 PCR NOT DETECTED 08/12/21 08:40 Nasal Coronavir NL63 PCR NOT DETECTED 08/12/21 08:40 Nasal Coronavir OC43 PCR NOT DETECTED 08/12/21 08:40 Nasal Enterovir/Rhinovir PCR NOT DETECTED 08/12/21 08:40 Nasal Influenza B PCR NOT DETECTED 08/12/21 08:40 Nasal Influenza A PCR NOT DETECTED 08/12/21 08:40 Nasal Parainfluen 1 PCR NOT DETECTED 08/12/21 08:40 Nasal Parainfluen 2 PCR NOT DETECTED 08/12/21 08:40 Nasal Parainfluen 3 PCR NOT DETECTED 08/12/21 08:40 Nasal Parainfluen 4 PCR NOT DETECTED 08/12/21 08:40 Nasal RSV (PCR) NOT DETECTED 08/12/21 08:40 Nasal Screen MRSA (PCR) NEGATIVE (NEGATIVE) 08/12/21 14:00 Nasal B.pertussis DNA PCR NOT DETECTED 08/12/21 08:40 Nasal C.pneumoniae (PCR) NOT DETECTED 08/12/21 08:40 Armando Human Metapneumo PCR NOT DETECTED 08/12/21 08:40 Nasal M.pneumoniae (PCR) NOT DETECTED 08/12/21 08:40 Nasal SARS-CoV-2 (PCR) NOT DETECTED 08/12/21 08:40 - Procedures Procedures: Procedures ENDOSC POLYPECTOMY OF LG INTEST (02/27/14) ABX Reporting Has patient been on IV antibiotics over the past 48 hours?: No
[2021-08-24] MEDS: SERTRALINE 50 MG TABLET PO SCH (08:27)
[2021-08-24] MEDS: SENNA 8.6 MG TABLET PO SCH (08:28)
[2021-08-24] MEDS: ENOXAPARIN 40 MG/0.4 ML SYRINGE SUBQ SCH ×2 (08:28→20:46)
[2021-08-24] MEDS: DOCUSATE SODIUM 250 MG CAPSULE PO SCH (08:28)
[2021-08-24] MEDS: TAMSULOSIN 0.4 MG CAPSULE PO SCH (08:28)
[2021-08-24] MEDS: LOSARTAN 50 MG TABLET PO SCH (08:28)
[2021-08-24] MEDS: SODIUM CHLORIDE FLUSH 0.9% 10 ML SYRINGE IVP PRN ×3 (08:29→20:46)
[2021-08-24] MEDS: polyethylene glycoL 3350 17 GM PACKET PO SCH (08:29)
[2021-08-24] MEDS: NYSTATIN POWDER 15 GM TOP SCH ×2 (08:30→20:46)
[2021-08-24] MEDS ORDERED: ZINC OXIDE 20% OINT 30 GM TUBE TOP PRN (10:47)
[2021-08-24] MEDS: MIN OIL/DIMETHICON/COCONUT OIL 92 GM TUBE TOP PRN (16:00)
[2021-08-24] MEDS: ATORVASTATIN 40 MG TABLET PO SCH (20:45)
[2021-08-25] MEDS: FUROSEMIDE 40 MG TABLET PO SCH ×2 (05:25→13:53)
[2021-08-25] MEDS: oxyCODONE 5 MG TABLET PO PRN (05:25)
--- NOTE | 2021-08-25 07:58 | PROVIDER PROGRESS NOTE ---
Assessment/Plan - Problem List (1) Acute on chronic respiratory failure with hypoxia and hypercapnia Assessment/Plan: Continue bipap qhs Patient remains alert and oriented X4 Continue lasix 40mg po bid (2) CO2 narcosis Assessment/Plan: Continue bipap qhs Patient remains alert and oriented X4 Continue lasix 40mg po bid (3) Chronic venous stasis dermatitis of both lower extremities Assessment/Plan: Continue to wrap lower extremities with Jon wrap compressions and elevate legs. Continue Lasix 40 mg p.o. twice daily. (5) YONATAN on CPAP Assessment/Plan: On BiPAP nightly. (6) Obesity hypoventilation syndrome Assessment/Plan: On BiPAP nightly. (7) Controlled type 2 diabetes mellitus without complication, with long-term current use of insulin Assessment/Plan: Lantus 15 units twice daily Acuc checks qAC and HS, sliding scale insulin (8) Self neglect Assessment/Plan: Social work/case management continues to assist in finding placement. To date the attempts have been unsuccessful. We will continue to try. (9) AVB (atrioventricular block) Assessment/Plan: No recurrence It was reported and captured on telemetry overnight on 08/18/21 that the patient had an episode of atrial tachycardia with complete heart block. He was asleep at the time but also asymptomatic. Patient's heart rate on telemetry at the time was 56. A 12-lead EKG done on 08/19/2021 around 8:30 AM showed sinus rhythm with a prolonged SC interval greater than 220. 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 The question was about the need for transfer in order to have a cardiology consult and possible pacemaker. Dr. Cardona advised continued management of obesity hypoventilation, sleep apnea and CO2 narcosis. Transfer and no intervention was not indicated at this time. He highlights that this was a brief occurrence during which the patient was asymptomatic and is currently in sinus rhythm. Further that if it occurred again the patient may benefit from Holter monitor. We will continue monitoring the patient on telemetry. - Current Meds Current Meds: Current Medications Generic Name Dose Route Start Last Admin Trade Name Freq PRN Reason Stop Dose Admin Acetaminophen 650 mg 08/12/21 10:28 08/23/21 17:48 Acetaminophen 325 Mg Tablet PO 650 mg Q4HR PRN Administration Pain 1 to 4 Atorvastatin Calcium 80 mg 08/17/21 21:00 08/24/21 20:45 Atorvastatin 40 Mg Tablet PO 80 mg QPM JAYNA Administration Docusate Sodium 250 - 500 mg 08/23/21 09:00 08/24/21 08:28 Docusate Sodium 250 Mg Capsule PO 250 mg DAILY JAYNA Administration Enoxaparin Sodium 40 mg 08/13/21 09:00 08/24/21 20:46 Enoxaparin 40 Mg/0.4 Ml Syringe SUBQ 40 mg BID JAYNA Administration Furosemide 40 mg 08/17/21 18:00 08/25/21 05:25 Furosemide 40 Mg Tablet PO 40 mg BIDDIURETIC JAYNA Administration Insulin Aspart 7 unit 08/20/21 17:00 08/24/21 17:49 Insulin Aspart 300 Unit/3 Ml Pen SUBQ 7 unit TIDWM JAYNA Administration Insulin Aspart 3 - 11 unit 08/23/21 12:45 08/24/21 20:45 Insulin Aspart 300 Unit/3 Ml Pen SUBQ 5 unit 0800,1200,1700,2100 JAYNA Administration Protocol Insulin Glargine 20 unit 08/22/21 18:00 08/24/21 17:50 Insulin Glargine 300 Unit/3 Ml Pen SUBQ 20 unit 0600,1800 JAYNA Administration Losartan Potassium 100 mg 08/18/21 09:00 08/24/21 08:28 Losartan 50 Mg Tablet PO 100 mg DAILY JAYNA Administration Mineral Oil 1 applic 08/17/21 09:49 08/24/21 16:00 Min Oil/Dimethicon/Coconut Oil 92 Gm Tube TOP 1 applic PRN PRN Administration Skin Care Nystatin 1 applic 08/16/21 21:00 08/24/21 20:46 Nystatin Powder 15 Gm TOP 1 applic BID JAYNA Administration Oxycodone HCl 5 mg 08/12/21 10:28 08/25/21 05:25 Oxycodone 5 Mg Tablet PO 5 mg Q4HR PRN Administration Pain 5 to 7 Polyethylene Glycol 17 gm 08/16/21 17:04 08/24/21 08:29 Polyethylene Glycol 3350 17 Gm Packet PO 17 gm DAILY JAYNA Administration Senna 8.6 - 17.2 mg 08/14/21 09:00 08/24/21 08:28 Senna 8.6 Mg Tablet PO 8.6 mg DAILY JAYNA Administration Sertraline HCl 200 mg 08/13/21 21:00 08/24/21 08:27 Sertraline 50 Mg Tablet PO 200 mg DAILY JAYNA Administration Sodium Chloride 10 ml 08/12/21 10:28 08/24/21 20:46 Sodium Chloride Flush 0.9% 10 Ml Syringe IVP 10 ml PRN PRN Administration NEEDED PER PROVIDER ORDERS Tamsulosin HCl 0.4 mg 08/13/21 09:00 08/24/21 08:28 Tamsulosin 0.4 Mg Capsule PO 0.4 mg DAILY JAYNA Administration - Lab Result Fish Bone Diagrams: 08/25/21 08:09 08/25/21 08:09 - Additional Planning My Orders: My Active Orders 08/24/21 10:47 Zinc Oxide 20% Oint [Zinc Oxide] 1 applic TOP PRN PRN 08/25/21 07:57 BMP - BASIC METABOLIC PANEL [CHEM] Routine CBC - COMP BLD CT W/AUTO DIFF [HEME] Routine 08/26/21 05:00 BMP - BASIC METABOLIC PANEL [CHEM] DAILYLAB CBC - COMP BLD CT W/AUTO DIFF [HEME] DAILYLAB 08/27/21 05:00 BMP - BASIC METABOLIC PANEL [CHEM] DAILYLAB CBC - COMP BLD CT W/AUTO DIFF [HEME] DAILYLAB 08/28/21 05:00 BMP - BASIC METABOLIC PANEL [CHEM] DAILYLAB CBC - COMP BLD CT W/AUTO DIFF [HEME] DAILYLAB 08/29/21 05:00 BMP - BASIC METABOLIC PANEL [CHEM] DAILYLAB CBC - COMP BLD CT W/AUTO DIFF [HEME] DAILYLAB 08/30/21 05:00 BMP - BASIC METABOLIC PANEL [CHEM] DAILYLAB CBC - COMP BLD CT W/AUTO DIFF [HEME] DAILYLAB Subjective - Subjective Patient Reports: Other (Patient was resting in bedside recliner at time of exam. He appeared slightly more dyspneic today than the previous day. He did not tolerate his home BiPAP machine overnight. He is CO2 level was slightly higher today thus requiring BiPAP during the day.) Objective Vital Signs: Vital Signs - 24 hr 08/24/21 08/24/21 08/24/21 11:30 16:55 21:00 Temperature 37.1 C 37.1 C 36.8 C Heart Rate [ 73 60 77 Monitoring electrodes] Respiratory 22 23 22 Rate Blood Pressure 122/76 141/59 H 138/99 H [Right Brachial artery] O2 Saturation 95 100 100 08/25/21 08/25/21 01:00 05:00 Temperature 37.2 C Heart Rate [ 73 83 Monitoring electrodes] Respiratory 20 13 Rate Blood Pressure 134/65 H [Right Brachial artery] O2 Saturation 96 97 Oxygen O2 Source Nasal cannula Oxygen Flow Rate 4 I&O (Last 24 Hrs): Intake and Output Totals x24h 08/23/21 08/24/21 08/25/21 23:59 23:59 23:59 Intake Total 1400 1150 850 Output Total 1530 1650 450 Balance -130 -500 400 Comments/Notes: General: Alert, Oriented x3, No acute distress HEENT: PERRLA, EOMI Neck: No JVD Neuro: Alert, Oriented Times 3 Cardiovascular: Regular rate, Normal S1, Normal S2 Respiratory: Chest non-tender, No respiratory distress (Diminished breath sounds due to body habitus) Abdomen: Normal bowel sounds, Soft, Other (Obese abdomen) Extremities: Other (Dry scaly skin. Venostasis changes. +1 edema) - Results Results: Laboratory Results WBC 5.2 x10^3/uL (4.8-10.8) 08/24/21 04:02 RBC 5.04 10^6/uL (4.70-6.10) 08/24/21 04:02 Hgb 11.8 g/dL (14.0-18.0) L 08/24/21 04:02 Hct 44.6 % (42.0-52.0) 08/24/21 04:02 MCV 88.5 fL (80.0-94.0) 08/24/21 04:02 MCH 23.4 pg (27.0-31.0) L 08/24/21 04:02 MCHC 26.5 g/dL (32.0-36.0) L 08/24/21 04:02 RDW 16.8 % (12.0-15.0) H 08/24/21 04:02 Plt Count 215 10^3/uL (130-450) 08/24/21 04:02 MPV 10.4 fL (7.4-11.4) 08/24/21 04:02 Neut # (Auto) 3.6 10^3/uL (1.5-6.6) 08/24/21 04:02 Lymph # (Auto) 1.0 10^3/uL (1.5-3.5) L 08/24/21 04:02 [place] # (Auto) 0.4 10^3/uL (0.0-1.0) 08/24/21 04:02 Eos # (Auto) 0.2 10^3/uL (0.0-0.7) 08/24/21 04:02 Baso # (Auto) 0.0 10^3/uL (0.0-0.1) 08/24/21 04:02 Absolute Nucleated RBC 0.00 x10^3/uL 08/24/21 04:02 Nucleated RBC % 0.0 /100WBC 08/24/21 04:02 Manual Slide Review Indicated 08/23/21 04:45 WBC Morphology NORMAL APPEARANCE (NORMAL) 08/23/21 04:45 Platelet Estimate NORMAL (130-450,000) (NORMAL) 08/23/21 04:45 Platelet Morphology NORMAL APPEARANCE (NORMAL) 08/23/21 04:45 RBC Morph Micro Appear 1+ HYPOCHROMASIA (NORMAL) 08/23/21 04:45 Bld Gas Analysis Time 0950 08/19/21 09:50 Sample Site RIGHT RADIAL 08/19/21 09:50 ABG pH 7.39 (7.35-7.45) 08/19/21 09:50 ABG pCO2 78 mmHg (34-45) H* 08/19/21 09:50 ABG pO2 92 mmHg (80-100) 08/19/21 09:50 ABG HCO3 46.2 mmol/L (22.0-26.0) H 08/19/21 09:50 ABG Total CO2 48.6 MMOL/L (21.0-29.0) H* 08/19/21 09:50 ABG O2 Saturation 97 % (94-98) 08/19/21 09:50 ABG Base Excess 17.2 mmol/L (-2.0-3.0) H 08/19/21 09:50 Reynaldo Test POSITIVE 08/19/21 09:50 VBG pH 7.170 (7.31-7.41) L 08/12/21 11:22 VBG pCO2 102.1 mmHg (41-51) H 08/12/21 11:22 VBG pO2 85.8 mmHg (25-47) H 08/12/21 11:22 VBG HCO3 36.4 mmol/L (23-28) H 08/12/21 11:22 VBG Total CO2 39.5 mmol/L (24-29) H 08/12/21 11:22 VBG O2 Saturation 95.4 % (60-80) H 08/12/21 11:22 VBG Base Excess 3.6 mmol/L (-2 - +2) H 08/12/21 11:22 Respiration Rate 15 b/min 08/19/21 09:50 O2 Delivery Device BiPAP 08/19/21 09:50 Vent Mode SYNCHRONOUS/TIMES 08/19/21 09:50 FiO2 35.00 08/19/21 09:50 Pressure Support Vent 3 cmH2O 08/12/21 18:15 EPAP 8 cmH2O 08/19/21 09:50 IPAP 16 cmH2O 08/19/21 09:50 Sodium 142 mmol/L (135-145) 08/24/21 04:02 Potassium 4.3 mmol/L (3.5-5.0) 08/24/21 04:02 Chloride 86 mmol/L (101-111) L 08/24/21 04:02 Carbon Dioxide 48 mmol/L (21-32) H* 08/24/21 04:02 Anion Gap 8.0 (6-13) 08/24/21 04:02 BUN 24 mg/dL (6-20) H 08/24/21 04:02 Creatinine 0.7 mg/dL (0.6-1.2) 08/24/21 04:02 Estimated GFR (MDRD) 112 (>89) 08/24/21 04:02 Glucose 192 mg/dL (70-100) H 08/24/21 04:02 POC Whole Bld Glucose 230 mg/dL (70 - 100) H 08/25/21 07:24 Estimat Average Glucose 146 mg/dL (70-100) H 08/13/21 14:53 Hemoglobin A1c % 6.7 % (4.27-6.07) H 08/13/21 14:53 Calcium 8.8 mg/dL (8.5-10.3) 08/24/21 04:02 Phosphorus 3.1 mg/dL (2.5-4.6) 08/19/21 04:03 Magnesium 1.9 mg/dL (1.7-2.8) 08/19/21 04:03 Total Bilirubin 0.6 mg/dL (0.2-1.0) 08/12/21 08:40 AST 14 IU/L (10-42) 08/12/21 08:40 ALT 15 IU/L (10-60) 08/12/21 08:40 Alkaline Phosphatase 119 IU/L (42-121) 08/12/21 08:40 Troponin I High Sens 27.4 ng/L (2.3-19.7) H* 08/12/21 11:22 B-Natriuretic Peptide 161 pg/mL (5-100) H 08/12/21 08:40 Total Protein 7.2 g/dL (6.7-8.2) 08/12/21 08:40 Albumin 3.2 g/dL (3.2-5.5) 08/12/21 08:40 Globulin 4.0 g/dL (2.1-4.2) 08/12/21 08:40 Albumin/Globulin Ratio 0.8 (1.0-2.2) L 08/12/21 08:40 Lipase 30 U/L (22-51) 08/12/21 08:40 Nasal Adenovirus (PCR) NOT DETECTED 08/12/21 08:40 Nasal B. parapertussis DNA (PCR) NOT DETECTED 08/12/21 08:40 Nasal Coronavir 229E PCR NOT DETECTED 08/12/21 08:40 Nasal Coronavir HKU1 PCR NOT DETECTED 08/12/21 08:40 Nasal Coronavir NL63 PCR NOT DETECTED 08/12/21 08:40 Nasal Coronavir OC43 PCR NOT DETECTED 08/12/21 08:40 Nasal Enterovir/Rhinovir PCR NOT DETECTED 08/12/21 08:40 Nasal Influenza B PCR NOT DETECTED 08/12/21 08:40 Nasal Influenza A PCR NOT DETECTED 08/12/21 08:40 Nasal Parainfluen 1 PCR NOT DETECTED 08/12/21 08:40 Nasal Parainfluen 2 PCR NOT DETECTED 08/12/21 08:40 Nasal Parainfluen 3 PCR NOT DETECTED 08/12/21 08:40 Nasal Parainfluen 4 PCR NOT DETECTED 08/12/21 08:40 Nasal RSV (PCR) NOT DETECTED 08/12/21 08:40 Nasal Screen MRSA (PCR) NEGATIVE (NEGATIVE) 08/12/21 14:00 Nasal B.pertussis DNA PCR NOT DETECTED 08/12/21 08:40 Nasal C.pneumoniae (PCR) NOT DETECTED 08/12/21 08:40 Armando Human Metapneumo PCR NOT DETECTED 08/12/21 08:40 Nasal M.pneumoniae (PCR) NOT DETECTED 08/12/21 08:40 Nasal SARS-CoV-2 (PCR) NOT DETECTED 08/12/21 08:40 - Procedures Procedures: Procedures ENDOSC POLYPECTOMY OF LG INTEST (02/27/14) ABX Reporting Has patient been on IV antibiotics over the past 48 hours?: No
[2021-08-25] MEDS: INSULIN GLARGINE 300 UNIT/3 ML PEN SUBQ SCH ×2 (08:00→16:45)
[2021-08-25] MEDS: INSULIN ASPART 300 UNIT/3 ML PEN SUBQ SCH ×7 (08:02→20:51)
[2021-08-25 08:15] LABS: BASOPHILS % (AUTO) 0.5 %; EOSINOPHILS # (AUTO) 0.2 10^3/uL (0.0-0.7); EOSINOPHILS % (AUTO) 2.6 %; HCT - HEMATOCRIT 46.7 % (42.0-52.0); HGB - HEMOGLOBIN 12.2 g/dL (14.0-18.0); LYMPHOCYTES # (AUTO) 1.2 10^3/uL (1.5-3.5); LYMPHOCYTES % (AUTO) 18.6 %; MEAN CORPUSCULAR HEMOGLOBIN 23.4 pg (27.0-31.0); MEAN CORPUSCULAR HGB CONC 26.1 g/dL (32.0-36.0); MEAN CORPUSCULAR VOLUME 89.6 fL (80.0-94.0); MEAN PLATELET VOLUME 10.3 fL (7.4-11.4); MONOCYTES # (AUTO) 0.4 10^3/uL (0.0-1.0); MONOCYTES % (AUTO) 6.2 %; NEUTROPHILS # (AUTO) 4.8 10^3/uL (1.5-6.6); NEUTROPHILS % (AUTO) 71.8 %; PLT - PLATELET COUNT 245 10^3/uL (130-450); RED BLOOD COUNT 5.21 10^6/uL (4.70-6.10); RED CELL DISTRIBUTION WIDTH 16.9 % (12.0-15.0); WHITE BLOOD COUNT 6.6 x10^3/uL (4.8-10.8)
[2021-08-25] MEDS: DOCUSATE SODIUM 250 MG CAPSULE PO SCH (08:22)
[2021-08-25] MEDS: LOSARTAN 50 MG TABLET PO SCH (08:23)
[2021-08-25] MEDS: ENOXAPARIN 40 MG/0.4 ML SYRINGE SUBQ SCH ×2 (08:23→20:45)
[2021-08-25] MEDS: SENNA 8.6 MG TABLET PO SCH (08:23)
[2021-08-25] MEDS: SERTRALINE 50 MG TABLET PO SCH (08:23)
[2021-08-25] MEDS: TAMSULOSIN 0.4 MG CAPSULE PO SCH (08:23)
[2021-08-25] MEDS: polyethylene glycoL 3350 17 GM PACKET PO SCH (08:24)
[2021-08-25] MEDS: NYSTATIN POWDER 15 GM TOP SCH ×2 (08:24→20:44)
[2021-08-25 08:46] LABS: CALCIUM 8.9 mg/dL (8.5-10.3); POTASSIUM 4.5 mmol/L (3.5-5.0)
[2021-08-25] MEDS: MIN OIL/DIMETHICON/COCONUT OIL 92 GM TUBE TOP PRN (10:18)
[2021-08-25] MEDS: CHOLECALCIFEROL 25 MCG TABLET PO SCH (13:56)
[2021-08-25] MEDS: ACETAMINOPHEN 325 MG TABLET PO PRN (16:08)
[2021-08-25] MEDS: ATORVASTATIN 40 MG TABLET PO SCH (20:45)
[2021-08-26 05:30] LABS: BASOPHILS % (AUTO) 0.3 %; EOSINOPHILS # (AUTO) 0.2 10^3/uL (0.0-0.7); EOSINOPHILS % (AUTO) 2.7 %; HCT - HEMATOCRIT 43.4 % (42.0-52.0); HGB - HEMOGLOBIN 11.6 g/dL (14.0-18.0); LYMPHOCYTES # (AUTO) 1.2 10^3/uL (1.5-3.5); LYMPHOCYTES % (AUTO) 20.9 %; MEAN CORPUSCULAR HEMOGLOBIN 23.5 pg (27.0-31.0); MEAN CORPUSCULAR HGB CONC 26.7 g/dL (32.0-36.0); MEAN PLATELET VOLUME 10.4 fL (7.4-11.4); MONOCYTES # (AUTO) 0.4 10^3/uL (0.0-1.0); MONOCYTES % (AUTO) 6.1 %; NEUTROPHILS # (AUTO) 4.1 10^3/uL (1.5-6.6); NEUTROPHILS % (AUTO) 69.8 %; PLT - PLATELET COUNT 250 10^3/uL (130-450); RED BLOOD COUNT 4.93 10^6/uL (4.70-6.10); RED CELL DISTRIBUTION WIDTH 17.2 % (12.0-15.0); WHITE BLOOD COUNT 5.9 x10^3/uL (4.8-10.8)
[2021-08-26 05:34] LABS: SLIDE REVIEW? Indicated
[2021-08-26 05:42] LABS: CALCIUM 8.8 mg/dL (8.5-10.3); CREATININE 0.9 mg/dL (0.6-1.2); POTASSIUM 4.3 mmol/L (3.5-5.0)
[2021-08-26 06:12] LABS: PLATELET MORPHOLOGY NORMAL APPEARANCE (NORMAL)
[2021-08-26 06:13] LABS: PLATELET ESTIMATE, MANUAL NORMAL (130-450,000) (NORMAL); WBC MORPHOLOGY (MULTIPLE) NORMAL APPEARANCE (NORMAL)
[2021-08-26] MEDS: FUROSEMIDE 40 MG TABLET PO SCH (06:21)
[2021-08-26] MEDS: INSULIN GLARGINE 300 UNIT/3 ML PEN SUBQ SCH ×2 (06:21→18:05)
--- NOTE | 2021-08-26 10:35 | PROVIDER PROGRESS NOTE ---
Assessment/Plan - Problem List (1) Acute on chronic respiratory failure with hypoxia and hypercapnia Assessment/Plan: Patient reports feeling better this morning and denies dyspnea, chest pain, or cough. He reports increased strenghth and stamina. He is able to converse with full sentences on NC 4L/min without dyspnea. Breath sounds are clear bilaterally with diminished bases.Patient has history of obesity hypoventilation syndrome and obstructive sleep apnea. Baseline he is on home O2 at 4L/min in addition to BiPAP at night which he was non-compliant with prior to hospitalization. Serum CO2 continues to be elevated at 49 today which is chronic. CO2 trends from previous admission in December 2020 were 37 to >45. Patient is alert and oriented x4 today. Plan: Continue BiPAP nightly. Continue daytime O2 at 4L/min as per baseline. Change Lasix 40mg to IV twice daily. Repeat labs tomorrow morning. (2) CO2 narcosis Assessment/Plan: Last ABG 08/19/21 with CO2 of 78, improved from prior a pCO2 of 89. Serum CO2 is 49 today which is chronic. CO2 trends from previous admission in December 2020 were 37 to >45. Patient is alert and oriented x4 today. Plan: Continue BiPap at night. Consider adding BiPap during the day intermittently if mental status deteriorates due to CO2 retention. (3) Anasarca Assessment/Plan: Patient has 3+ pitting pedal edema that extends up to mid-abdomen. He denies increased work of breathing. His anasarca is most likely due to moderate to severe right ventricle enlargement and mild pulmonary hypertension with PAPS of 38 found during 01/13/2021 Echocardiogram. Plan: Lasix 40mg changed from PO to IVP twice daily. (4) Obesity hypoventilation syndrome Assessment/Plan: Patient has history of obesity hypoventilation syndrome and obstructive sleep apnea. At baseline he is on home O2 at 4L/min. He is also instructed to be on BiPAP nightly, which he was non-compliant with prior to hospitalization. He was diuresed and is maintaining volume status with Lasix 40mg PO twice daily. Patient reports improvement with his work of breathing due to decreased abdominal pressure after starting diuretic. Plan: Continue BiPAP nightly. Continue daytime O2 at 4L/min as per baseline. Continue with PT to increase activity tolerance. Change Lasix 40mg from PO twice daily to IV. (5) YONATAN on CPAP Assessment/Plan: Patient has history of YONATAN with CPAP at night, which he was non-compliant with. This morning he reports feeling better with more energy, stamina, decreased work of breathing after 14 days of night BiPap use. Plan: Continue BiPAP nightly. [facility] for continued medical management and BiPap compliance. (6) Mild aortic stenosis Assessment/Plan: Grade 3/6 holosystolic murmur at right sternal border. 2D echocardiogram done January 13, 2021 showed mild aortic stenosis with mean gradient 25mmHg. Denies dizziness, syncope, or exertional angina. Plan: Continue to monitor hymodynamic status. Consider repeat echocariogram if he develops hemodynamic instability. (7) Chronic venous stasis dermatitis of both lower extremities Assessment/Plan: Bilateral pedal edema 3+ that extends up to bilateral knees. Patient reports edema has improved significantly. Scaly plaques and hyperpigmentation to bilateral lower extremities are unchanged and consistent with chronic venous stasis. Plan: Keep lower extremity wrapped with Jon wrap compressions and elevate as tolerated. Change Lasix 40 mg to IV twice daily. (8) Controlled type 2 diabetes mellitus without complication, with long-term current use of insulin Assessment/Plan: History of type 2 Diabetes Mellitus. Admission A1C 6.7. Controlled outpatient with Metformin 1000mg BID, Aspart Insulin 4 units TID with meals, Glargine 30 units BID, and Empagliflozin 12.5 daily. Bedside glucose is ranging 140s-150s today, yesterday bedside glucose ranged low 200s. On high sliding scale Aspart Insulin in addition to 7 units of meal coverage. His Lantus was also increased yesterday to 25 units subcu twice daily. Plan: Continue Accu-Checks before meals and bedtime. Continue with Lantus 25 units in am and pm. Continue with set meal coverage of Aspart insulin and additional sliding scale. (9) Self neglect Assessment/Plan: Patient is agreeable to finding an alternative living situation due to limited ability to care for himself. [place] have been unsuccessful due to bed availability. He is also agreeable to transferring to a [place] approved facility. 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 Continue with physical therapy to increase strength and stamina. - Current Meds Current Meds: Current Medications Generic Name Dose Route Start Last Admin Trade Name Freq PRN Reason Stop Dose Admin Acetaminophen 650 mg 08/12/21 10:28 08/25/21 16:08 Acetaminophen 325 Mg Tablet PO 650 mg Q4HR PRN Administration Pain 1 to 4 Atorvastatin Calcium 80 mg 08/17/21 21:00 08/25/21 20:45 Atorvastatin 40 Mg Tablet PO 80 mg QPM JAYNA Administration Cholecalciferol 50 mcg 08/25/21 13:00 08/25/21 13:56 Cholecalciferol 25 Mcg Tablet PO 50 mcg DAILY JAYNA Administration Docusate Sodium 250 - 500 mg 08/23/21 09:00 08/25/21 08:22 Docusate Sodium 250 Mg Capsule PO 250 mg DAILY JAYNA Administration Enoxaparin Sodium 40 mg 08/13/21 09:00 08/25/21 20:45 Enoxaparin 40 Mg/0.4 Ml Syringe SUBQ 40 mg BID JAYNA Administration Furosemide 40 mg 08/17/21 18:00 08/26/21 06:21 Furosemide 40 Mg Tablet PO 40 mg BIDDIURETIC JAYNA Administration Insulin Aspart 7 unit 08/20/21 17:00 08/25/21 16:43 Insulin Aspart 300 Unit/3 Ml Pen SUBQ 7 unit TIDWM JAYNA Administration Insulin Aspart 3 - 11 unit 08/23/21 12:45 08/25/21 20:51 Insulin Aspart 300 Unit/3 Ml Pen SUBQ 5 unit 0800,1200,1700,2100 JAYNA Administration Protocol Insulin Glargine 25 unit 08/25/21 18:00 08/26/21 06:21 Insulin Glargine 300 Unit/3 Ml Pen SUBQ 25 unit 0600,1800 JAYNA Administration Losartan Potassium 100 mg 08/18/21 09:00 08/25/21 08:23 Losartan 50 Mg Tablet PO 100 mg DAILY JAYNA Administration Mineral Oil 1 applic 08/17/21 09:49 08/25/21 10:18 Min Oil/Dimethicon/Coconut Oil 92 Gm Tube TOP 1 applic PRN PRN Administration Skin Care Nystatin 1 applic 08/16/21 21:00 08/25/21 20:44 Nystatin Powder 15 Gm TOP 1 applic BID JAYNA Administration Oxycodone HCl 5 mg 08/12/21 10:28 08/25/21 05:25 Oxycodone 5 Mg Tablet PO 5 mg Q4HR PRN Administration Pain 5 to 7 Polyethylene Glycol 17 gm 08/16/21 17:04 08/25/21 08:24 Polyethylene Glycol 3350 17 Gm Packet PO Not Given DAILY JAYNA Senna 8.6 - 17.2 mg 08/14/21 09:00 08/25/21 08:23 Senna 8.6 Mg Tablet PO 8.6 mg DAILY JAYNA Administration Sertraline HCl 200 mg 08/13/21 21:00 08/25/21 08:23 Sertraline 50 Mg Tablet PO 200 mg DAILY JAYNA Administration Sodium Chloride 10 ml 08/12/21 10:28 08/24/21 20:46 Sodium Chloride Flush 0.9% 10 Ml Syringe IVP 10 ml PRN PRN Administration NEEDED PER PROVIDER ORDERS Tamsulosin HCl 0.4 mg 08/13/21 09:00 08/25/21 08:23 Tamsulosin 0.4 Mg Capsule PO 0.4 mg DAILY JAYNA Administration - Lab Result Fish Bone Diagrams: 08/26/21 04:46 08/26/21 04:46 <Bambi Infante - Last Filed: 08/26/21 14:27> - Current Meds Current Meds: Current Medications Generic Name Dose Route Start Last Admin Trade Name Freq PRN Reason Stop Dose Admin Acetaminophen 650 mg 08/12/21 10:28 08/25/21 16:08 Acetaminophen 325 Mg Tablet PO 650 mg Q4HR PRN Administration Pain 1 to 4 Atorvastatin Calcium 80 mg 08/17/21 21:00 08/26/21 22:20 Atorvastatin 40 Mg Tablet PO 80 mg QPM JAYNA Administration Cholecalciferol 50 mcg 08/25/21 13:00 08/26/21 11:10 Cholecalciferol 25 Mcg Tablet PO 50 mcg DAILY JAYNA Administration Docusate Sodium 250 - 500 mg 08/23/21 09:00 08/26/21 11:11 Docusate Sodium 250 Mg Capsule PO 250 mg DAILY JAYNA Administration Enoxaparin Sodium 40 mg 08/13/21 09:00 08/26/21 22:19 Enoxaparin 40 Mg/0.4 Ml Syringe SUBQ 40 mg BID JAYNA Administration Furosemide 40 mg 08/26/21 14:00 08/27/21 06:11 Furosemide 40 Mg/4 Ml Vial IVP 40 mg BIDDIURETIC JAYNA Administration Insulin Aspart 7 unit 08/20/21 17:00 08/26/21 17:15 Insulin Aspart 300 Unit/3 Ml Pen SUBQ 7 unit TIDWM JAYNA Administration Insulin Aspart 3 - 11 unit 08/23/21 12:45 08/26/21 22:20 Insulin Aspart 300 Unit/3 Ml Pen SUBQ 7 unit 0800,1200,1700,2100 JAYNA Administration Protocol Insulin Glargine 25 unit 08/25/21 18:00 08/27/21 06:11 Insulin Glargine 300 Unit/3 Ml Pen SUBQ 25 unit 0600,1800 JAYNA Administration Losartan Potassium 100 mg 08/18/21 09:00 08/26/21 11:09 Losartan 50 Mg Tablet PO 100 mg DAILY JAYNA Administration Mineral Oil 1 applic 08/17/21 09:49 08/25/21 10:18 Min Oil/Dimethicon/Coconut Oil 92 Gm Tube TOP 1 applic PRN PRN Administration Skin Care Nystatin 1 applic 08/16/21 21:00 08/26/21 22:21 Nystatin Powder 15 Gm TOP 1 applic BID JAYNA Administration Oxycodone HCl 5 mg 08/12/21 10:28 08/25/21 05:25 Oxycodone 5 Mg Tablet PO 5 mg Q4HR PRN Administration Pain 5 to 7 Polyethylene Glycol 17 gm 08/16/21 17:04 08/26/21 11:12 Polyethylene Glycol 3350 17 Gm Packet PO Not Given DAILY JAYNA Senna 8.6 - 17.2 mg 08/14/21 09:00 08/26/21 11:06 Senna 8.6 Mg Tablet PO 8.6 mg DAILY JAYNA Administration Sertraline HCl 200 mg 08/13/21 21:00 08/26/21 11:08 Sertraline 50 Mg Tablet PO 200 mg DAILY JAYNA Administration Sodium Chloride 10 ml 08/12/21 10:28 08/26/21 14:28 Sodium Chloride Flush 0.9% 10 Ml Syringe IVP 10 ml PRN PRN Administration NEEDED PER PROVIDER ORDERS Tamsulosin HCl 0.4 mg 08/13/21 09:00 08/26/21 11:09 Tamsulosin 0.4 Mg Capsule PO 0.4 mg DAILY JAYNA Administration - Lab Result Fish Bone Diagrams: 08/27/21 04:45 08/27/21 04:45 - Additional Planning My Orders: My Active Orders 08/26/21 14:00 FUROSEMIDE INJ 40mg VIAL [LASIX INJ 40 mg VIAL] 40 mg IVP BIDDIURETIC <BradfazaljudymarryKelsi meek - Last Filed: 08/27/21 08:03> Subjective - Subjective Patient Reports: Feeling Better, Resting Comfortably, No Complaints, Other (Patient is resting comfortably in bed finishing his breakfast. Initial attempt to assess patient was delayed because he was in the bathroom. He reports feeling much better today specifically his breathing, strength, and stamina has improved. He denies dyspnea, chest pain, or palpitations.) Nursing Reports: No Complaints <Bambi Infante - Last Filed: 08/26/21 14:27> Objective Vital Signs: Vital Signs - 24 hr 08/25/21 08/25/21 08/25/21 12:28 15:38 19:36 Temperature 37.1 C 37.9 C 36.8 C Heart Rate [ 81 79 62 Monitoring electrodes] Respiratory 22 24 15 Rate Blood Pressure 143/92 H 138/65 H 138/63 H [Left Brachial artery] Blood Pressure [Right Brachial artery] O2 Saturation 100 100 98 08/25/21 08/26/21 08/26/21 23:40 03:13 07:22 Temperature 37.0 C 36.7 C Heart Rate [ 67 64 76 Monitoring electrodes] Respiratory 16 20 22 Rate Blood Pressure [Left Brachial artery] Blood Pressure 136/59 H 127/69 139/55 H [Right Brachial artery] O2 Saturation 96 94 95 Oxygen O2 Source Nasal cannula Oxygen Flow Rate 4 I&O (Last 24 Hrs): Intake and Output Totals x24h 08/24/21 08/25/21 08/26/21 23:59 23:59 23:59 Intake Total 1150 1590 740 Output Total 1650 1600 450 Balance -500 -10 290 General: Alert, Oriented x3, Cooperative, No acute distress, Other (Alert and oriented to self, location, time, and situation.) HEENT: Atraumatic, PERRLA, EOMI, Mucous membr. moist/pink Neck: Supple Neuro: Alert, Oriented Times 3 Cardiovascular: Regular rate, Other (3/6 holosystolic murmur to right 2nd intercostal space) Respiratory: Chest non-tender, No respiratory distress, Breath sounds nml, Other (Diminished bases bilaterally) Abdomen: Normal bowel sounds, Soft, No tenderness, Other (unable to assess for h epatospenomegaly or masses due to habitus) Extremities: No clubbing, No cyanosis, Other (3+ pitting pedal edema that extends to midabdomen.) Skin: No rashes Comments/Notes: hyperpigmentation with scaly plaques to bilateral lower legs - Results Results: Laboratory Results WBC 5.9 x10^3/uL (4.8-10.8) 08/26/21 04:46 RBC 4.93 10^6/uL (4.70-6.10) 08/26/21 04:46 Hgb 11.6 g/dL (14.0-18.0) L 08/26/21 04:46 Hct 43.4 % (42.0-52.0) 08/26/21 04:46 MCV 88.0 fL (80.0-94.0) 08/26/21 04:46 MCH 23.5 pg (27.0-31.0) L 08/26/21 04:46 MCHC 26.7 g/dL (32.0-36.0) L 08/26/21 04:46 RDW 17.2 % (12.0-15.0) H 08/26/21 04:46 Plt Count 250 10^3/uL (130-450) 08/26/21 04:46 MPV 10.4 fL (7.4-11.4) 08/26/21 04:46 Neut # (Auto) 4.1 10^3/uL (1.5-6.6) 08/26/21 04:46 Lymph # (Auto) 1.2 10^3/uL (1.5-3.5) L 08/26/21 04:46 Swain # (Auto) 0.4 10^3/uL (0.0-1.0) 08/26/21 04:46 Eos # (Auto) 0.2 10^3/uL (0.0-0.7) 08/26/21 04:46 Baso # (Auto) 0.0 10^3/uL (0.0-0.1) 08/26/21 04:46 Absolute Nucleated RBC 0.00 x10^3/uL 08/26/21 04:46 Nucleated RBC % 0.0 /100WBC 08/26/21 04:46 Manual Slide Review Indicated 08/26/21 04:46 WBC Morphology NORMAL APPEARANCE (NORMAL) 08/26/21 04:46 Platelet Estimate NORMAL (130-450,000) (NORMAL) 08/26/21 04:46 Platelet Morphology NORMAL APPEARANCE (NORMAL) 08/26/21 04:46 RBC Morph Micro Appear 2+ HYPOCHROMASIA (NORMAL) 2+ STOMATOCYTES (NORMAL) 08/26/21 04:46 RBC Morph Micro Appear 2+ HYPOCHROMASIA (NORMAL) 2+ STOMATOCYTES (NORMAL) 08/26/21 04:46 Bld Gas Analysis Time 0950 08/19/21 09:50 Sample Site RIGHT RADIAL 08/19/21 09:50 ABG pH 7.39 (7.35-7.45) 08/19/21 09:50 ABG pCO2 78 mmHg (34-45) H* 08/19/21 09:50 ABG pO2 92 mmHg (80-100) 08/19/21 09:50 ABG HCO3 46.2 mmol/L (22.0-26.0) H 08/19/21 09:50 ABG Total CO2 48.6 MMOL/L (21.0-29.0) H* 08/19/21 09:50 ABG O2 Saturation 97 % (94-98) 08/19/21 09:50 ABG Base Excess 17.2 mmol/L (-2.0-3.0) H 08/19/21 09:50 Reynaldo Test POSITIVE 08/19/21 09:50 VBG pH 7.170 (7.31-7.41) L 08/12/21 11:22 VBG pCO2 102.1 mmHg (41-51) H 08/12/21 11:22 VBG pO2 85.8 mmHg (25-47) H 08/12/21 11:22 VBG HCO3 36.4 mmol/L (23-28) H 08/12/21 11:22 VBG Total CO2 39.5 mmol/L (24-29) H 08/12/21 11:22 VBG O2 Saturation 95.4 % (60-80) H 08/12/21 11:22 VBG Base Excess 3.6 mmol/L (-2 - +2) H 08/12/21 11:22 Respiration Rate 15 b/min 08/19/21 09:50 O2 Delivery Device BiPAP 08/19/21 09:50 Vent Mode SYNCHRONOUS/TIMES 08/19/21 09:50 FiO2 35.00 08/19/21 09:50 Pressure Support Vent 3 cmH2O 08/12/21 18:15 EPAP 8 cmH2O 08/19/21 09:50 IPAP 16 cmH2O 08/19/21 09:50 Sodium 141 mmol/L (135-145) 08/26/21 04:46 Potassium 4.3 mmol/L (3.5-5.0) 08/26/21 04:46 Chloride 85 mmol/L (101-111) L 08/26/21 04:46 Carbon Dioxide 49 mmol/L (21-32) H* 08/26/21 04:46 Anion Gap 7.0 (6-13) 08/26/21 04:46 BUN 31 mg/dL (6-20) H 08/26/21 04:46 Creatinine 0.9 mg/dL (0.6-1.2) 08/26/21 04:46 Estimated GFR (MDRD) 84 (>89) L 08/26/21 04:46 Glucose 152 mg/dL (70-100) H 08/26/21 04:46 POC Whole Bld Glucose 156 mg/dL (70 - 100) H 08/26/21 07:20 Estimat Average Glucose 146 mg/dL (70-100) H 08/13/21 14:53 Hemoglobin A1c % 6.7 % (4.27-6.07) H 08/13/21 14:53 Calcium 8.8 mg/dL (8.5-10.3) 08/26/21 04:46 Phosphorus 3.1 mg/dL (2.5-4.6) 08/19/21 04:03 Magnesium 1.9 mg/dL (1.7-2.8) 08/19/21 04:03 Total Bilirubin 0.6 mg/dL (0.2-1.0) 08/12/21 08:40 AST 14 IU/L (10-42) 08/12/21 08:40 ALT 15 IU/L (10-60) 08/12/21 08:40 Alkaline Phosphatase 119 IU/L (42-121) 08/12/21 08:40 Troponin I High Sens 27.4 ng/L (2.3-19.7) H* 08/12/21 11:22 B-Natriuretic Peptide 161 pg/mL (5-100) H 08/12/21 08:40 Total Protein 7.2 g/dL (6.7-8.2) 08/12/21 08:40 Albumin 3.2 g/dL (3.2-5.5) 08/12/21 08:40 Globulin 4.0 g/dL (2.1-4.2) 08/12/21 08:40 Albumin/Globulin Ratio 0.8 (1.0-2.2) L 08/12/21 08:40 Lipase 30 U/L (22-51) 08/12/21 08:40 Nasal Adenovirus (PCR) NOT DETECTED 08/12/21 08:40 Nasal B. parapertussis DNA (PCR) NOT DETECTED 08/12/21 08:40 Nasal Coronavir 229E PCR NOT DETECTED 08/12/21 08:40 Nasal Coronavir HKU1 PCR NOT DETECTED 08/12/21 08:40 Nasal Coronavir NL63 PCR NOT DETECTED 08/12/21 08:40 Nasal Coronavir OC43 PCR NOT DETECTED 08/12/21 08:40 Nasal Enterovir/Rhinovir PCR NOT DETECTED 08/12/21 08:40 Nasal Influenza B PCR NOT DETECTED 08/12/21 08:40 Nasal Influenza A PCR NOT DETECTED 08/12/21 08:40 Nasal Parainfluen 1 PCR NOT DETECTED 08/12/21 08:40 Nasal Parainfluen 2 PCR NOT DETECTED 08/12/21 08:40 Nasal Parainfluen 3 PCR NOT DETECTED 08/12/21 08:40 Nasal Parainfluen 4 PCR NOT DETECTED 08/12/21 08:40 Nasal RSV (PCR) NOT DETECTED 08/12/21 08:40 Nasal Screen MRSA (PCR) NEGATIVE (NEGATIVE) 08/12/21 14:00 Nasal B.pertussis DNA PCR NOT DETECTED 08/12/21 08:40 Nasal C.pneumoniae (PCR) NOT DETECTED 08/12/21 08:40 Armando Human Metapneumo PCR NOT DETECTED 08/12/21 08:40 Nasal M.pneumoniae (PCR) NOT DETECTED 08/12/21 08:40 Nasal SARS-CoV-2 (PCR) NOT DETECTED 08/12/21 08:40 - Procedures Procedures: Procedures ENDOSC POLYPECTOMY OF LG INTEST (02/27/14) <Bambi Infante - Last Filed: 08/26/21 14:27> Vital Signs: Vital Signs - 24 hr 08/26/21 08/26/21 08/26/21 11:21 16:43 20:43 Temperature 37 C Heart Rate [ 75 75 79 Monitoring electrodes] Respiratory 23 21 16 Rate Blood Pressure 135/59 H 125/50 L 144/51 H [Right Brachial artery] O2 Saturation 96 96 94 08/27/21 08/27/21 00:21 05:00 Temperature 36.7 C Heart Rate [ 65 75 Monitoring electrodes] Respiratory 19 25 H Rate Blood Pressure 144/65 H 137/58 H [Right Brachial artery] O2 Saturation 92 95 Oxygen O2 Source Nasal cannula Oxygen Flow Rate 4 I&O (Last 24 Hrs): Intake and Output Totals x24h 08/25/21 08/26/21 08/27/21 23:59 23:59 23:59 Intake Total 1590 1540 500 Output Total 1600 1275 1250 Balance -10 859 -750 - Results Results: Laboratory Results WBC 5.7 x10^3/uL (4.8-10.8) 08/27/21 04:45 RBC 4.65 10^6/uL (4.70-6.10) L 08/27/21 04:45 Hgb 10.9 g/dL (14.0-18.0) L 08/27/21 04:45 Hct 40.9 % (42.0-52.0) L 08/27/21 04:45 MCV 88.0 fL (80.0-94.0) 08/27/21 04:45 MCH 23.4 pg (27.0-31.0) L 08/27/21 04:45 MCHC 26.7 g/dL (32.0-36.0) L 08/27/21 04:45 RDW 17.1 % (12.0-15.0) H 08/27/21 04:45 Plt Count 255 10^3/uL (130-450) 08/27/21 04:45 MPV 9.8 fL (7.4-11.4) 08/27/21 04:45 Neut # (Auto) 4.0 10^3/uL (1.5-6.6) 08/27/21 04:45 Lymph # (Auto) 1.1 10^3/uL (1.5-3.5) L 08/27/21 04:45 Swain # (Auto) 0.4 10^3/uL (0.0-1.0) 08/27/21 04:45 Eos # (Auto) 0.2 10^3/uL (0.0-0.7) 08/27/21 04:45 Baso # (Auto) 0.0 10^3/uL (0.0-0.1) 08/27/21 04:45 Absolute Nucleated RBC 0.00 x10^3/uL 08/27/21 04:45 Nucleated RBC % 0.0 /100WBC 08/27/21 04:45 Manual Slide Review Indicated 08/27/21 04:45 WBC Morphology NORMAL APPEARANCE (NORMAL) 08/27/21 04:45 Platelet Estimate NORMAL (130-450,000) (NORMAL) 08/27/21 04:45 Platelet Morphology NORMAL APPEARANCE (NORMAL) 08/27/21 04:45 RBC Morph Micro Appear 1+ HYPOCHROMASIA (NORMAL) 1+ STOMATOCYTES (NORMAL) 08/27/21 04:45 RBC Morph Micro Appear 1+ HYPOCHROMASIA (NORMAL) 1+ STOMATOCYTES (NORMAL) 08/27/21 04:45 Bld Gas Analysis Time 0950 08/19/21 09:50 Sample Site RIGHT RADIAL 08/19/21 09:50 ABG pH 7.39 (7.35-7.45) 08/19/21 09:50 ABG pCO2 78 mmHg (34-45) H* 08/19/21 09:50 ABG pO2 92 mmHg (80-100) 08/19/21 09:50 ABG HCO3 46.2 mmol/L (22.0-26.0) H 08/19/21 09:50 ABG Total CO2 48.6 MMOL/L (21.0-29.0) H* 08/19/21 09:50 ABG O2 Saturation 97 % (94-98) 08/19/21 09:50 ABG Base Excess 17.2 mmol/L (-2.0-3.0) H 08/19/21 09:50 Reynaldo Test POSITIVE 08/19/21 09:50 VBG pH 7.170 (7.31-7.41) L 08/12/21 11:22 VBG pCO2 102.1 mmHg (41-51) H 08/12/21 11:22 VBG pO2 85.8 mmHg (25-47) H 08/12/21 11:22 VBG HCO3 36.4 mmol/L (23-28) H 08/12/21 11:22 VBG Total CO2 39.5 mmol/L (24-29) H 08/12/21 11:22 VBG O2 Saturation 95.4 % (60-80) H 08/12/21 11:22 VBG Base Excess 3.6 mmol/L (-2 - +2) H 08/12/21 11:22 Respiration Rate 15 b/min 08/19/21 09:50 O2 Delivery Device BiPAP 08/19/21 09:50 Vent Mode SYNCHRONOUS/TIMES 08/19/21 09:50 FiO2 35.00 08/19/21 09:50 Pressure Support Vent 3 cmH2O 08/12/21 18:15 EPAP 8 cmH2O 08/19/21 09:50 IPAP 16 cmH2O 08/19/21 09:50 Sodium 141 mmol/L (135-145) 08/27/21 04:45 Potassium 4.2 mmol/L (3.5-5.0) 08/27/21 04:45 Chloride 85 mmol/L (101-111) L 08/27/21 04:45 Carbon Dioxide 49 mmol/L (21-32) H* 08/27/21 04:45 Anion Gap 7.0 (6-13) 08/27/21 04:45 BUN 29 mg/dL (6-20) H 08/27/21 04:45 Creatinine 0.8 mg/dL (0.6-1.2) 08/27/21 04:45 Estimated GFR (MDRD) 96 (>89) 08/27/21 04:45 Glucose 219 mg/dL (70-100) H 08/27/21 04:45 POC Whole Bld Glucose 193 mg/dL (70 - 100) H 08/27/21 06:02 Estimat Average Glucose 146 mg/dL (70-100) H 08/13/21 14:53 Hemoglobin A1c % 6.7 % (4.27-6.07) H 08/13/21 14:53 Calcium 8.8 mg/dL (8.5-10.3) 08/27/21 04:45 Phosphorus 3.1 mg/dL (2.5-4.6) 08/19/21 04:03 Magnesium 1.9 mg/dL (1.7-2.8) 08/19/21 04:03 Total Bilirubin 0.6 mg/dL (0.2-1.0) 08/12/21 08:40 AST 14 IU/L (10-42) 08/12/21 08:40 ALT 15 IU/L (10-60) 08/12/21 08:40 Alkaline Phosphatase 119 IU/L (42-121) 08/12/21 08:40 Troponin I High Sens 27.4 ng/L (2.3-19.7) H* 08/12/21 11:22 B-Natriuretic Peptide 161 pg/mL (5-100) H 08/12/21 08:40 Total Protein 7.2 g/dL (6.7-8.2) 08/12/21 08:40 Albumin 3.2 g/dL (3.2-5.5) 08/12/21 08:40 Globulin 4.0 g/dL (2.1-4.2) 08/12/21 08:40 Albumin/Globulin Ratio 0.8 (1.0-2.2) L 08/12/21 08:40 Lipase 30 U/L (22-51) 08/12/21 08:40 Nasal Adenovirus (PCR) NOT DETECTED 08/12/21 08:40 Nasal B. parapertussis DNA (PCR) NOT DETECTED 08/12/21 08:40 Nasal Coronavir 229E PCR NOT DETECTED 08/12/21 08:40 Nasal Coronavir HKU1 PCR NOT DETECTED 08/12/21 08:40 Nasal Coronavir NL63 PCR NOT DETECTED 08/12/21 08:40 Nasal Coronavir OC43 PCR NOT DETECTED 08/12/21 08:40 Nasal Enterovir/Rhinovir PCR NOT DETECTED 08/12/21 08:40 Nasal Influenza B PCR NOT DETECTED 08/12/21 08:40 Nasal Influenza A PCR NOT DETECTED 08/12/21 08:40 Nasal Parainfluen 1 PCR NOT DETECTED 08/12/21 08:40 Nasal Parainfluen 2 PCR NOT DETECTED 08/12/21 08:40 Nasal Parainfluen 3 PCR NOT DETECTED 08/12/21 08:40 Nasal Parainfluen 4 PCR NOT DETECTED 08/12/21 08:40 Nasal RSV (PCR) NOT DETECTED 08/12/21 08:40 Nasal Screen MRSA (PCR) NEGATIVE (NEGATIVE) 08/12/21 14:00 Nasal B.pertussis DNA PCR NOT DETECTED 08/12/21 08:40 Nasal C.pneumoniae (PCR) NOT DETECTED 08/12/21 08:40 Armando Human Metapneumo PCR NOT DETECTED 08/12/21 08:40 Nasal M.pneumoniae (PCR) NOT DETECTED 08/12/21 08:40 Nasal SARS-CoV-2 (PCR) NOT DETECTED 08/12/21 08:40 - Procedures Procedures: Procedures ENDOSC POLYPECTOMY OF LG INTEST (02/27/14) <Kelsi Mi - Last Filed: 08/27/21 08:03> ABX Reporting Has patient been on IV antibiotics over the past 48 hours?: No <Bambi Infante - Last Filed: 08/26/21 14:27>
[2021-08-26] MEDS: INSULIN ASPART 300 UNIT/3 ML PEN SUBQ SCH ×7 (10:55→22:20)
[2021-08-26] MEDS: ENOXAPARIN 40 MG/0.4 ML SYRINGE SUBQ SCH ×2 (11:06→22:19)
[2021-08-26] MEDS: SENNA 8.6 MG TABLET PO SCH (11:06)
[2021-08-26] MEDS: SERTRALINE 50 MG TABLET PO SCH (11:08)
[2021-08-26] MEDS: LOSARTAN 50 MG TABLET PO SCH (11:09)
[2021-08-26] MEDS: TAMSULOSIN 0.4 MG CAPSULE PO SCH (11:09)
[2021-08-26] MEDS: CHOLECALCIFEROL 25 MCG TABLET PO SCH (11:10)
[2021-08-26] MEDS: NYSTATIN POWDER 15 GM TOP SCH ×2 (11:11→22:21)
[2021-08-26] MEDS: DOCUSATE SODIUM 250 MG CAPSULE PO SCH (11:11)
[2021-08-26] MEDS: polyethylene glycoL 3350 17 GM PACKET PO SCH (11:12)
[2021-08-26] MEDS: SODIUM CHLORIDE FLUSH 0.9% 10 ML SYRINGE IVP PRN (14:28)
[2021-08-26] MEDS: FUROSEMIDE 40 MG/4 ML VIAL IVP SCH (14:28)
[2021-08-26] MEDS: ATORVASTATIN 40 MG TABLET PO SCH (22:20)
[2021-08-27 05:29] LABS: BASOPHILS % (AUTO) 0.5 %; EOSINOPHILS # (AUTO) 0.2 10^3/uL (0.0-0.7); HCT - HEMATOCRIT 40.9 % (42.0-52.0); HGB - HEMOGLOBIN 10.9 g/dL (14.0-18.0); LYMPHOCYTES # (AUTO) 1.1 10^3/uL (1.5-3.5); LYMPHOCYTES % (AUTO) 18.9 %; MEAN CORPUSCULAR HEMOGLOBIN 23.4 pg (27.0-31.0); MEAN CORPUSCULAR HGB CONC 26.7 g/dL (32.0-36.0); MEAN PLATELET VOLUME 9.8 fL (7.4-11.4); MONOCYTES # (AUTO) 0.4 10^3/uL (0.0-1.0); MONOCYTES % (AUTO) 6.7 %; NEUTROPHILS % (AUTO) 70.5 %; PLT - PLATELET COUNT 255 10^3/uL (130-450); RED BLOOD COUNT 4.65 10^6/uL (4.70-6.10); RED CELL DISTRIBUTION WIDTH 17.1 % (12.0-15.0); WHITE BLOOD COUNT 5.7 x10^3/uL (4.8-10.8)
[2021-08-27 05:30] LABS: SLIDE REVIEW? Indicated
[2021-08-27 05:37] LABS: CALCIUM 8.8 mg/dL (8.5-10.3); CREATININE 0.8 mg/dL (0.6-1.2); POTASSIUM 4.2 mmol/L (3.5-5.0)
[2021-08-27 05:48] LABS: PLATELET ESTIMATE, MANUAL NORMAL (130-450,000) (NORMAL); PLATELET MORPHOLOGY NORMAL APPEARANCE (NORMAL); WBC MORPHOLOGY (MULTIPLE) NORMAL APPEARANCE (NORMAL)
[2021-08-27] MEDS: FUROSEMIDE 40 MG/4 ML VIAL IVP SCH ×2 (06:11→13:56)
[2021-08-27] MEDS: INSULIN GLARGINE 300 UNIT/3 ML PEN SUBQ SCH ×2 (06:11→17:38)
[2021-08-27] MEDS: DOCUSATE SODIUM 250 MG CAPSULE PO SCH (08:36)
[2021-08-27] MEDS: SERTRALINE 50 MG TABLET PO SCH (08:36)
[2021-08-27] MEDS: TAMSULOSIN 0.4 MG CAPSULE PO SCH (08:36)
[2021-08-27] MEDS: LOSARTAN 50 MG TABLET PO SCH (08:36)
[2021-08-27] MEDS: INSULIN ASPART 300 UNIT/3 ML PEN SUBQ SCH ×7 (08:37→20:41)
[2021-08-27] MEDS: polyethylene glycoL 3350 17 GM PACKET PO SCH (08:37)
[2021-08-27] MEDS: CHOLECALCIFEROL 25 MCG TABLET PO SCH (08:37)
[2021-08-27] MEDS: ENOXAPARIN 40 MG/0.4 ML SYRINGE SUBQ SCH ×2 (08:37→20:40)
[2021-08-27] MEDS: SENNA 8.6 MG TABLET PO SCH (08:37)
[2021-08-27] MEDS: NYSTATIN POWDER 15 GM TOP SCH ×2 (08:43→20:42)
--- NOTE | 2021-08-27 12:53 | PROVIDER PROGRESS NOTE ---
Assessment/Plan - Problem List (1) Acute on chronic respiratory failure with hypoxia and hypercapnia Assessment/Plan: Patient reports feeling well today and denies dyspnea, chest pain, or cough. Breath sounds are clear with faint right lower lobe rales .Patient has history of obesity hypoventilation syndrome and obstructive sleep apnea. Baseline he is on home O2 at 4L/min in addition to BiPAP at night which he was non-compliant with prior to hospitalization. Serum CO2 continues to be 49 today which is chronic. CO2 trends from previous admission in December 2020 were 37 to >45. Patient is alert and oriented x4 today. Plan: Continue BiPAP nightly. Continue daytime O2 at 4L/min as per baseline. Continue Lasix 40mg to IV twice daily. Repeat labs tomorrow morning. (2) CO2 narcosis Assessment/Plan: Last ABG 08/19/21 with CO2 of 78, improved from prior a pCO2 of 89. Serum CO2 is 49 today which is chronic. CO2 trends from previous admission in December 2020 were 37 to >45. Patient is alert and oriented x4 today. Plan: Continue BiPap at night. Consider adding BiPap during the day intermittently if mental status deteriorates due to CO2 retention. (3) Anasarca Assessment/Plan: Patient continues to have 3+ pitting pedal edema that extends up to mid-abdomen but is slightly improved from yesterday. He denies increased work of breathing. His anasarca is most likely due to moderate to severe right ventricle enlargeme nt and mild pulmonary hypertension with PAPS of 38 found during 01/13/2021 Echocardiogram. Plan: Continue Lasix 40mg IVP twice daily. (4) Obesity hypoventilation syndrome Assessment/Plan: Patient has history of obesity hypoventilation syndrome and obstructive sleep apnea. At baseline he is on home O2 at 4L/min. He is also instructed to be on BiPAP nightly, which he was non-compliant with prior to hospitalization. He was diuresed yesterday by increasing his Lasix 40mg IVP daily. Patient reports improvement with his work of breathing due to decreased abdominal pressure after starting diuretic. Plan: Continue BiPAP nightly. Continue daytime O2 at 4L/min as per baseline. Continue with PT to increase activity tolerance. Continue Lasix 40mg IV twice daily. (5) YONATAN on CPAP Assessment/Plan: Patient has history of YONATAN with CPAP at night, which he was non-compliant with prior to hospitalization. This morning he reports sleeping well and feeling rested. Plan: Continue BiPAP nightly. Plan for discharge to terminal operator care facility for continued medical management and BiPap compliance. (6) Mild aortic stenosis Assessment/Plan: Grade 3/6 holosystolic murmur at right sternal border. 2D echocardiogram done January 13, 2021 showed mild aortic stenosis with mean gradient 25mmHg. Denies dizziness, syncope, or exertional angina. Plan: Continue to monitor hymodynamic status. (7) Chronic venous stasis dermatitis of both lower extremities Assessment/Plan: Bilateral pedal edema 3+ that extends up to mid abdomen that is slightly i mproved from yesterday. Patient reports edema has improved significantly. Scaly plaques and hyperpigmentation to bilateral lower extremities are unchanged and consistent with chronic venous stasis. Plan: Keep lower extremity wrapped with Jon wrap compressions and elevate as tolerated. Continue Lasix 40 mg IV. (8) Controlled type 2 diabetes mellitus without complication, with long-term current use of insulin Assessment/Plan: History of type 2 Diabetes Mellitus. Admission A1C 6.7. Controlled outpatient with Metformin 1000mg BID, Aspart Insulin 4 units TID with meals, Glargine 30 units BID, and Empagliflozin 12.5 daily. Bedside glucose is ranging 190s-270s today, yesterday bedside glucose ranged 130-140s. On high sliding scale Aspart Insulin in addition to 7 units of meal coverage. His Lantus was also increased 08/25 to 25 units subcu twice daily. Plan: Continue Accu-Checks before meals and bedtime. Increase Lantus to 28 units in am and pm. Increase set meal coverage from 7 to 9 units of Aspart and continue with the additional sliding scale. (9) Self neglect Assessment/Plan: Patient is agreeable to finding an alternative living situation due to limited ability to care for himself. He would like to be transferred to the [facility] but attempts have been unsuccessful due to bed availability. He is also agreeable to transferring to a ID approved facility. 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 Continue with physical therapy to increase strength and stamina. - Current Meds Current Meds: Current Medications Generic Name Dose Route Start Last Admin Trade Name Freq PRN Reason Stop Dose Admin Acetaminophen 650 mg 08/12/21 10:28 08/25/21 16:08 Acetaminophen 325 Mg Tablet PO 650 mg Q4HR PRN Administration Pain 1 to 4 Atorvastatin Calcium 80 mg 08/17/21 21:00 08/26/21 22:20 Atorvastatin 40 Mg Tablet PO 80 mg QPM JAYNA Administration Cholecalciferol 50 mcg 08/25/21 13:00 08/27/21 08:37 Cholecalciferol 25 Mcg Tablet PO 50 mcg DAILY JAYNA Administration Docusate Sodium 250 - 500 mg 08/23/21 09:00 08/27/21 08:36 Docusate Sodium 250 Mg Capsule PO 250 mg DAILY JAYNA Administration Enoxaparin Sodium 40 mg 08/13/21 09:00 08/27/21 08:37 Enoxaparin 40 Mg/0.4 Ml Syringe SUBQ 40 mg BID JAYNA Administration Furosemide 40 mg 08/26/21 14:00 08/27/21 06:11 Furosemide 40 Mg/4 Ml Vial IVP 40 mg BIDDIURETIC JAYNA Administration Insulin Aspart 7 unit 08/20/21 17:00 08/27/21 11:58 Insulin Aspart 300 Unit/3 Ml Pen SUBQ 7 unit TIDWM JAYNA Administration Insulin Aspart 3 - 11 unit 08/23/21 12:45 08/27/21 11:58 Insulin Aspart 300 Unit/3 Ml Pen SUBQ 9 unit 0800,1200,1700,2100 JAYNA Administration Protocol Insulin Glargine 25 unit 08/25/21 18:00 08/27/21 06:11 Insulin Glargine 300 Unit/3 Ml Pen SUBQ 25 unit 0600,1800 JAYNA Administration Losartan Potassium 100 mg 08/18/21 09:00 08/27/21 08:36 Losartan 50 Mg Tablet PO 100 mg DAILY JAYNA Administration Mineral Oil 1 applic 08/17/21 09:49 08/25/21 10:18 Min Oil/Dimethicon/Coconut Oil 92 Gm Tube TOP 1 applic PRN PRN Administration Skin Care Nystatin 1 applic 08/16/21 21:00 08/27/21 08:43 Nystatin Powder 15 Gm TOP 1 applic BID JAYNA Administration Oxycodone HCl 5 mg 08/12/21 10:28 08/25/21 05:25 Oxycodone 5 Mg Tablet PO 5 mg Q4HR PRN Administration Pain 5 to 7 Polyethylene Glycol 17 gm 08/16/21 17:04 08/27/21 08:37 Polyethylene Glycol 3350 17 Gm Packet PO 17 gm DAILY JAYNA Administration Senna 8.6 - 17.2 mg 08/14/21 09:00 08/27/21 08:37 Senna 8.6 Mg Tablet PO 8.6 mg DAILY JAYNA Administration Sertraline HCl 200 mg 08/13/21 21:00 08/27/21 08:36 Sertraline 50 Mg Tablet PO 200 mg DAILY JAYNA Administration Sodium Chloride 10 ml 08/12/21 10:28 08/26/21 14:28 Sodium Chloride Flush 0.9% 10 Ml Syringe IVP 10 ml PRN PRN Administration NEEDED PER PROVIDER ORDERS Tamsulosin HCl 0.4 mg 08/13/21 09:00 08/27/21 08:36 Tamsulosin 0.4 Mg Capsule PO 0.4 mg DAILY JAYNA Administration - Lab Result Fish Bone Diagrams: 08/27/21 04:45 08/27/21 04:45 Subjective - Subjective Patient Reports: Feeling Better, Resting Comfortably, No Complaints, Other (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 He denies dyspnea and reports feeling more "tired" today. He has not been out of bed for breakfast but is planning on sitting in chair for lunch.) Nursing Reports: No Complaints Objective Vital Signs: Vital Signs - 24 hr 08/26/21 08/26/21 08/27/21 16:43 20:43 00:21 Temperature 36.7 C Heart Rate [ 75 79 65 Monitoring electrodes] Respiratory 21 16 19 Rate Blood Pressure 125/50 L 144/51 H 144/65 H [Right Brachial artery] O2 Saturation 96 94 92 08/27/21 08/27/21 05:00 08:35 Temperature 36.9 C Heart Rate [ 75 78 Monitoring electrodes] Respiratory 25 H 22 Rate Blood Pressure 137/58 H 141/56 H [Right Brachial artery] O2 Saturation 95 94 Oxygen O2 Source Nasal cannula Oxygen Flow Rate 4 I&O (Last 24 Hrs): Intake and Output Totals x24h 08/25/21 08/26/21 08/27/21 23:59 23:59 23:59 Intake Total 1590 1540 860 Output Total 1600 1275 1450 Balance -10 265 -590 General: Alert, Oriented x3, Cooperative, No acute distress HEENT: Atraumatic, PERRLA, EOMI, Mucous membr. moist/pink Neck: Supple Neuro: Alert, Oriented Times 3 Cardiovascular: Regular rate, Other (3/6 holosystolic murmur to right 2nd intercostal space) Respiratory: Chest non-tender, No respiratory distress, Breath sounds nml, Rales (Faint rales to right lower base) Abdomen: Normal bowel sounds, Soft (Unable to assess for hepatospenomegaly or masses due to habitus.), No tenderness, Other Genitourinary: Other (Scrotal edema) Extremities: Other (3+ pitting pedal edema that extends to midabdomen.) Skin: No rashes - Results Results: Laboratory Results WBC 5.7 x10^3/uL (4.8-10.8) 08/27/21 04:45 RBC 4.65 10^6/uL (4.70-6.10) L 08/27/21 04:45 Hgb 10.9 g/dL (14.0-18.0) L 08/27/21 04:45 Hct 40.9 % (42.0-52.0) L 08/27/21 04:45 MCV 88.0 fL (80.0-94.0) 08/27/21 04:45 MCH 23.4 pg (27.0-31.0) L 08/27/21 04:45 MCHC 26.7 g/dL (32.0-36.0) L 08/27/21 04:45 RDW 17.1 % (12.0-15.0) H 08/27/21 04:45 Plt Count 255 10^3/uL (130-450) 08/27/21 04:45 MPV 9.8 fL (7.4-11.4) 08/27/21 04:45 Neut # (Auto) 4.0 10^3/uL (1.5-6.6) 08/27/21 04:45 Lymph # (Auto) 1.1 10^3/uL (1.5-3.5) L 08/27/21 04:45 Caroline # (Auto) 0.4 10^3/uL (0.0-1.0) 08/27/21 04:45 Eos # (Auto) 0.2 10^3/uL (0.0-0.7) 08/27/21 04:45 Baso # (Auto) 0.0 10^3/uL (0.0-0.1) 08/27/21 04:45 Absolute Nucleated RBC 0.00 x10^3/uL 08/27/21 04:45 Nucleated RBC % 0.0 /100WBC 08/27/21 04:45 Manual Slide Review Indicated 08/27/21 04:45 WBC Morphology NORMAL APPEARANCE (NORMAL) 08/27/21 04:45 Platelet Estimate NORMAL (130-450,000) (NORMAL) 08/27/21 04:45 Platelet Morphology NORMAL APPEARANCE (NORMAL) 08/27/21 04:45 RBC Morph Micro Appear 1+ HYPOCHROMASIA (NORMAL) 1+ STOMATOCYTES (NORMAL) 08/27/21 04:45 RBC Morph Micro Appear 1+ HYPOCHROMASIA (NORMAL) 1+ STOMATOCYTES (NORMAL) 08/27/21 04:45 Bld Gas Analysis Time 0950 08/19/21 09:50 Sample Site RIGHT RADIAL 08/19/21 09:50 ABG pH 7.39 (7.35-7.45) 08/19/21 09:50 ABG pCO2 78 mmHg (34-45) H* 08/19/21 09:50 ABG pO2 92 mmHg (80-100) 08/19/21 09:50 ABG HCO3 46.2 mmol/L (22.0-26.0) H 08/19/21 09:50 ABG Total CO2 48.6 MMOL/L (21.0-29.0) H* 08/19/21 09:50 ABG O2 Saturation 97 % (94-98) 08/19/21 09:50 ABG Base Excess 17.2 mmol/L (-2.0-3.0) H 08/19/21 09:50 Reynaldo Test POSITIVE 08/19/21 09:50 VBG pH 7.170 (7.31-7.41) L 08/12/21 11:22 VBG pCO2 102.1 mmHg (41-51) H 08/12/21 11:22 VBG pO2 85.8 mmHg (25-47) H 08/12/21 11:22 VBG HCO3 36.4 mmol/L (23-28) H 08/12/21 11:22 VBG Total CO2 39.5 mmol/L (24-29) H 08/12/21 11:22 VBG O2 Saturation 95.4 % (60-80) H 08/12/21 11:22 VBG Base Excess 3.6 mmol/L (-2 - +2) H 08/12/21 11:22 Respiration Rate 15 b/min 08/19/21 09:50 O2 Delivery Device BiPAP 08/19/21 09:50 Vent Mode SYNCHRONOUS/TIMES 08/19/21 09:50 FiO2 35.00 08/19/21 09:50 Pressure Support Vent 3 cmH2O 08/12/21 18:15 EPAP 8 cmH2O 08/19/21 09:50 IPAP 16 cmH2O 08/19/21 09:50 Sodium 141 mmol/L (135-145) 08/27/21 04:45 Potassium 4.2 mmol/L (3.5-5.0) 08/27/21 04:45 Chloride 85 mmol/L (101-111) L 08/27/21 04:45 Carbon Dioxide 49 mmol/L (21-32) H* 08/27/21 04:45 Anion Gap 7.0 (6-13) 08/27/21 04:45 BUN 29 mg/dL (6-20) H 08/27/21 04:45 Creatinine 0.8 mg/dL (0.6-1.2) 08/27/21 04:45 Estimated GFR (MDRD) 96 (>89) 08/27/21 04:45 Glucose 219 mg/dL (70-100) H 08/27/21 04:45 POC Whole Bld Glucose 279 mg/dL (70 - 100) H 08/27/21 11:41 Estimat Average Glucose 146 mg/dL (70-100) H 08/13/21 14:53 Hemoglobin A1c % 6.7 % (4.27-6.07) H 08/13/21 14:53 Calcium 8.8 mg/dL (8.5-10.3) 08/27/21 04:45 Phosphorus 3.1 mg/dL (2.5-4.6) 08/19/21 04:03 Magnesium 1.9 mg/dL (1.7-2.8) 08/19/21 04:03 Total Bilirubin 0.6 mg/dL (0.2-1.0) 08/12/21 08:40 AST 14 IU/L (10-42) 08/12/21 08:40 ALT 15 IU/L (10-60) 08/12/21 08:40 Alkaline Phosphatase 119 IU/L (42-121) 08/12/21 08:40 Troponin I High Sens 27.4 ng/L (2.3-19.7) H* 08/12/21 11:22 B-Natriuretic Peptide 161 pg/mL (5-100) H 08/12/21 08:40 Total Protein 7.2 g/dL (6.7-8.2) 08/12/21 08:40 Albumin 3.2 g/dL (3.2-5.5) 08/12/21 08:40 Globulin 4.0 g/dL (2.1-4.2) 08/12/21 08:40 Albumin/Globulin Ratio 0.8 (1.0-2.2) L 08/12/21 08:40 Lipase 30 U/L (22-51) 08/12/21 08:40 Nasal Adenovirus (PCR) NOT DETECTED 08/12/21 08:40 Nasal B. parapertussis DNA (PCR) NOT DETECTED 08/12/21 08:40 Nasal Coronavir 229E PCR NOT DETECTED 08/12/21 08:40 Nasal Coronavir HKU1 PCR NOT DETECTED 08/12/21 08:40 Nasal Coronavir NL63 PCR NOT DETECTED 08/12/21 08:40 Nasal Coronavir OC43 PCR NOT DETECTED 08/12/21 08:40 Nasal Enterovir/Rhinovir PCR NOT DETECTED 08/12/21 08:40 Nasal Influenza B PCR NOT DETECTED 08/12/21 08:40 Nasal Influenza A PCR NOT DETECTED 08/12/21 08:40 Nasal Parainfluen 1 PCR NOT DETECTED 08/12/21 08:40 Nasal Parainfluen 2 PCR NOT DETECTED 08/12/21 08:40 Nasal Parainfluen 3 PCR NOT DETECTED 08/12/21 08:40 Nasal Parainfluen 4 PCR NOT DETECTED 08/12/21 08:40 Nasal RSV (PCR) NOT DETECTED 08/12/21 08:40 Nasal Screen MRSA (PCR) NEGATIVE (NEGATIVE) 08/12/21 14:00 Nasal B.pertussis DNA PCR NOT DETECTED 08/12/21 08:40 Nasal C.pneumoniae (PCR) NOT DETECTED 08/12/21 08:40 Armando Human Metapneumo PCR NOT DETECTED 08/12/21 08:40 Nasal M.pneumoniae (PCR) NOT DETECTED 08/12/21 08:40 Nasal SARS-CoV-2 (PCR) NOT DETECTED 08/12/21 08:40 - Procedures Procedures: Procedures ENDOSC POLYPECTOMY OF LG INTEST (02/27/14) ABX Reporting Has patient been on IV antibiotics over the past 48 hours?: No
[2021-08-27] MEDS: ATORVASTATIN 40 MG TABLET PO SCH (20:39)
[2021-08-28 05:10] LABS: BASOPHILS % (AUTO) 0.5 %; EOSINOPHILS # (AUTO) 0.2 10^3/uL (0.0-0.7); EOSINOPHILS % (AUTO) 3.8 %; HCT - HEMATOCRIT 41.2 % (42.0-52.0); HGB - HEMOGLOBIN 10.9 g/dL (14.0-18.0); LYMPHOCYTES # (AUTO) 1.2 10^3/uL (1.5-3.5); MEAN CORPUSCULAR HEMOGLOBIN 23.5 pg (27.0-31.0); MEAN CORPUSCULAR HGB CONC 26.5 g/dL (32.0-36.0); MEAN CORPUSCULAR VOLUME 88.8 fL (80.0-94.0); MONOCYTES # (AUTO) 0.5 10^3/uL (0.0-1.0); MONOCYTES % (AUTO) 7.2 %; NEUTROPHILS # (AUTO) 4.5 10^3/uL (1.5-6.6); NEUTROPHILS % (AUTO) 70.2 %; PLT - PLATELET COUNT 278 10^3/uL (130-450); RED BLOOD COUNT 4.64 10^6/uL (4.70-6.10); RED CELL DISTRIBUTION WIDTH 17.2 % (12.0-15.0); WHITE BLOOD COUNT 6.4 x10^3/uL (4.8-10.8)
[2021-08-28 05:15] LABS: SLIDE REVIEW? Indicated
[2021-08-28 05:26] LABS: CALCIUM 8.7 mg/dL (8.5-10.3); CREATININE 0.7 mg/dL (0.6-1.2); POTASSIUM 4.2 mmol/L (3.5-5.0)
[2021-08-28 05:37] LABS: PLATELET ESTIMATE, MANUAL NORMAL (130-450,000) (NORMAL); PLATELET MORPHOLOGY NORMAL APPEARANCE (NORMAL); WBC MORPHOLOGY (MULTIPLE) NORMAL APPEARANCE (NORMAL)
[2021-08-28] MEDS: FUROSEMIDE 40 MG/4 ML VIAL IVP SCH ×2 (06:15→13:50)
[2021-08-28] MEDS: INSULIN GLARGINE 300 UNIT/3 ML PEN SUBQ SCH ×2 (06:15→17:14)
[2021-08-28] MEDS: INSULIN ASPART 300 UNIT/3 ML PEN SUBQ SCH ×7 (08:36→20:45)
[2021-08-28] MEDS: ENOXAPARIN 40 MG/0.4 ML SYRINGE SUBQ SCH ×2 (08:38→20:44)
[2021-08-28] MEDS: CHOLECALCIFEROL 25 MCG TABLET PO SCH (08:38)
[2021-08-28] MEDS: SENNA 8.6 MG TABLET PO SCH (08:39)
[2021-08-28] MEDS: DOCUSATE SODIUM 250 MG CAPSULE PO SCH (08:39)
[2021-08-28] MEDS: LOSARTAN 50 MG TABLET PO SCH (08:39)
[2021-08-28] MEDS: TAMSULOSIN 0.4 MG CAPSULE PO SCH (08:40)
[2021-08-28] MEDS: polyethylene glycoL 3350 17 GM PACKET PO SCH (08:40)
[2021-08-28] MEDS: SERTRALINE 50 MG TABLET PO SCH (08:40)
[2021-08-28] MEDS: NYSTATIN POWDER 15 GM TOP SCH ×2 (08:40→20:44)
--- NOTE | 2021-08-28 18:43 | PROVIDER PROGRESS NOTE ---
Assessment/Plan - Problem List (1) Acute on chronic respiratory failure with hypoxia and hypercapnia Assessment/Plan: (1) Acute on chronic respiratory failure with hypoxia and hypercapnia Assessment/Plan: Stable without c/o dyspnea, chest pain, or cough to his RN. Patient has history of obesity hypoventilation syndrome and obstructive sleep apnea. Baseline he is on home O2 at 4L/min in addition to BiPAP at night which he was non-compliant with prior to hospitalization. Serum CO2 continues to be 49 which is chronic. CO2 trends from previous admission in December 2020 were 37 to >45. . Continue BiPAP nightly. Since this is his own BIPAP unit (per his RN and per RT), we are able to move him out of ICU (per BIPAP protocol of this hospital), to a Med Surg bed/status. Will do this today. Continue daytime O2 at 4L/min as per baseline. Continue Lasix 40mg to IV twice daily today (2) CO2 narcosis Assessment/Plan: Serum CO2 is chronic elevated. Patient is alert despite this Continue BiPap at night and during the day intermittently if mental status deteriorates due to CO2 retention. (3) Anasarca Assessment/Plan: Patient continues to have 2+ pitting pedal edema that extends up to thighs but is less tense since on iv Lasix for the last 2 days. He denies increased work of breathing. His anasarca is most likely due to moderate to severe right ventricle enlargement and mild pulmonary hypertension with PAPS of 38 found during 01/13/2021 Echocardiogram. Continue Lasix 40mg IVP twice daily today Follow I's and O's Follow electrolytes, including occasional serum Mg (4) Obesity hypoventilation syndrome Assessment/Plan: Patient has history of obesity hypoventilation syndrome and obstructive sleep apnea. At baseline he is on home O2 at 4L/min. He was also instructed to be on BiPAP nightly, which he was non-compliant with prior to hospitalization. He is diuresing by increasing his Lasix 40mg IV bis. Patient reports improvement with his work of breathing due to decreased abdominal pressure after starting diuretic. Continue BiPAP nightly. Continue daytime O2 at 4L/min as per baseline. Continue with PT to increase activity tolerance. Continue Lasix 40mg IV twice daily toda (5) YONATAN on CPAP Assessment/Plan: Patient has history of YONATAN with CPAP at night, which he was non-compliant with prior to hospitalization. This morning he reports sleeping well and feeling Continue BiPAP nightly. Plan for discharge to [facility] care facility for continued medical management and BiPap compliance. (6) Mild aortic stenosis Assessment/Plan: He has a Grade 3/6 holosystolic murmur at right sternal border. 2D echocardiogram done January 13, 2021 showed mild aortic stenosis with mean gradient 25mmHg. Denies dizziness, syncope, or exertional angina. Continue to monitor hemodynamic status. (7) Chronic venous stasis dermatitis of both lower extremities Assessment/Plan: Bilateral pedal edema 2+ that extends up to thighs that is slightly improved from yesterday. Patient reports edema has improved significantly. Scaly plaques and hyperpigmentation to bilateral lower extremities are unchanged and consistent with chronic venous stasis. Keep lower extremity wrapped with Jon wrap compressions and elevate as tolerated. Continue Lasix 40 mg IV. (8) Controlled type 2 diabetes mellitus without complication, with long-term current use of insulin Assessment/Plan: History of type 2 Diabetes Mellitus. Admission A1C 6.7. Controlled as outpatient with Metformin 1000mg BID, Aspart Insulin 4 units TID with meals, Glargine 30 units BID, and Empagliflozin 12.5 daily. Bedside glucose is ranging 150-200's On high sliding scale Aspart Insulin in addition to increased 5 to 7 units of meal coverage. His Lantus was also increased to 25 units subcu twice daily. Continue Accu-Checks before meals and bedtime, ss coverage, tid Insulin and Lantus bid (9) Self neglect Assessment/Plan: Patient is agreeable to finding an alternative living situation due to limited ability to care for himself. He [place] but attempts have been unsuccessful due to bed availability. He is also agreeable to transferring to a [place] approved facility. first calender worker is continuing to assist in disposition/placement and working to place patient at a [facility]. Continue with physical therapy to increase strength and stamina. (10) Heart block His telemetry shows first-degree AV block and also intermittent Wenckebach block - Current Meds Current Meds: Current Medications Generic Name Dose Route Start Last Admin Trade Name Freq PRN Reason Stop Dose Admin Acetaminophen 650 mg 08/12/21 10:28 08/25/21 16:08 Acetaminophen 325 Mg Tablet PO 650 mg Q4HR PRN Administration Pain 1 to 4 Atorvastatin Calcium 80 mg 08/17/21 21:00 08/27/21 20:39 Atorvastatin 40 Mg Tablet PO 80 mg QPM JAYNA Administration Cholecalciferol 50 mcg 08/25/21 13:00 08/28/21 08:38 Cholecalciferol 25 Mcg Tablet PO 50 mcg DAILY JAYNA Administration Docusate Sodium 250 - 500 mg 08/23/21 09:00 08/28/21 08:39 Docusate Sodium 250 Mg Capsule PO 250 mg DAILY JAYNA Administration Enoxaparin Sodium 40 mg 08/13/21 09:00 08/28/21 08:38 Enoxaparin 40 Mg/0.4 Ml Syringe SUBQ 40 mg BID JAYNA Administration Furosemide 40 mg 08/26/21 14:00 08/28/21 13:50 Furosemide 40 Mg/4 Ml Vial IVP 40 mg BIDDIURETIC JAYNA Administration Insulin Aspart 3 - 11 unit 08/23/21 12:45 08/28/21 17:13 Insulin Aspart 300 Unit/3 Ml Pen SUBQ 5 unit 0800,1200,1700,2100 JAYNA Administration Protocol Insulin Aspart 9 unit 08/27/21 17:00 08/28/21 17:13 Insulin Aspart 300 Unit/3 Ml Pen SUBQ 9 unit TIDWM JAYNA Administration Insulin Glargine 27 unit 08/27/21 18:00 08/28/21 17:14 Insulin Glargine 300 Unit/3 Ml Pen SUBQ 27 unit 0600,1800 JAYNA Administration Losartan Potassium 100 mg 08/18/21 09:00 08/28/21 08:39 Losartan 50 Mg Tablet PO 100 mg DAILY JAYNA Administration Mineral Oil 1 applic 08/17/21 09:49 08/25/21 10:18 Min Oil/Dimethicon/Coconut Oil 92 Gm Tube TOP 1 applic PRN PRN Administration Skin Care Nystatin 1 applic 08/16/21 21:00 08/28/21 08:40 Nystatin Powder 15 Gm TOP 1 applic BID JAYNA Administration Oxycodone HCl 5 mg 08/12/21 10:28 08/25/21 05:25 Oxycodone 5 Mg Tablet PO 5 mg Q4HR PRN Administration Pain 5 to 7 Polyethylene Glycol 17 gm 08/16/21 17:04 08/28/21 08:40 Polyethylene Glycol 3350 17 Gm Packet PO 17 gm DAILY JAYNA Administration Senna 8.6 - 17.2 mg 08/14/21 09:00 08/28/21 08:39 Senna 8.6 Mg Tablet PO 8.6 mg DAILY JAYNA Administration Sertraline HCl 200 mg 08/13/21 21:00 08/28/21 08:40 Sertraline 50 Mg Tablet PO 200 mg DAILY JAYNA Administration Sodium Chloride 10 ml 08/12/21 10:28 08/26/21 14:28 Sodium Chloride Flush 0.9% 10 Ml Syringe IVP 10 ml PRN PRN Administration NEEDED PER PROVIDER ORDERS Tamsulosin HCl 0.4 mg 08/13/21 09:00 08/28/21 08:40 Tamsulosin 0.4 Mg Capsule PO 0.4 mg DAILY JAYNA Administration - Lab Result Fish Bone Diagrams: 08/29/21 04:43 08/29/21 04:43 - Additional Planning My Orders: My Active Orders 08/27/21 18:00 Insulin Glargine [Lantus Solostar] 27 unit SUBQ 0600,1800 08/28/21 11:52 Telemetry- [RC] Q4HR Subjective - Subjective Patient Reports: Resting Comfortably Nursing Reports: Other (uses BIPAP at night) Objective Vital Signs: Vital Signs - 24 hr 08/27/21 08/27/21 08/28/21 20:50 23:50 05:00 Temperature 37.0 C 36.9 C Heart Rate [ 78 78 80 Monitoring electrodes] Respiratory 20 23 21 Rate Blood Pressure [Left Brachial artery] Blood Pressure 137/58 H 124/81 H 137/61 H [Right Brachial artery] O2 Saturation 93 91 L 93 08/28/21 08/28/21 08:28 17:34 Temperature 36.9 C 36.6 C Heart Rate [ 76 77 Monitoring electrodes] Respiratory 20 26 H Rate Blood Pressure 131/53 H [Left Brachial artery] Blood Pressure 139/58 H [Right Brachial artery] O2 Saturation 98 99 Oxygen O2 Source Nasal cannula Oxygen Flow Rate 4 I&O (Last 24 Hrs): Intake and Output Totals x24h 08/26/21 08/27/21 08/28/21 23:59 23:59 23:59 Intake Total 1540 1860 1505 Output Total 1275 2450 1175 Balance 265 -590 330 General: Other ([place] currently) HEENT: Mucous membr. moist/pink Neck: Supple Neuro: Non Focal Cardiovascular: Regular rate Respiratory: No respiratory distress (on supplemental O2) Abdomen: Other (obese with pannus) Extremities: Other (2+ edema to thighs) - Results Results: Laboratory Results WBC 6.4 x10^3/uL (4.8-10.8) 08/28/21 04:38 RBC 4.64 10^6/uL (4.70-6.10) L 08/28/21 04:38 Hgb 10.9 g/dL (14.0-18.0) L 08/28/21 04:38 Hct 41.2 % (42.0-52.0) L 08/28/21 04:38 MCV 88.8 fL (80.0-94.0) 08/28/21 04:38 MCH 23.5 pg (27.0-31.0) L 08/28/21 04:38 MCHC 26.5 g/dL (32.0-36.0) L 08/28/21 04:38 RDW 17.2 % (12.0-15.0) H 08/28/21 04:38 Plt Count 278 10^3/uL (130-450) 08/28/21 04:38 MPV 10.0 fL (7.4-11.4) 08/28/21 04:38 Neut # (Auto) 4.5 10^3/uL (1.5-6.6) 08/28/21 04:38 Lymph # (Auto) 1.2 10^3/uL (1.5-3.5) L 08/28/21 04:38 [place] # (Auto) 0.5 10^3/uL (0.0-1.0) 08/28/21 04:38 Eos # (Auto) 0.2 10^3/uL (0.0-0.7) 08/28/21 04:38 Baso # (Auto) 0.0 10^3/uL (0.0-0.1) 08/28/21 04:38 Absolute Nucleated RBC 0.00 x10^3/uL 08/28/21 04:38 Nucleated RBC % 0.0 /100WBC 08/28/21 04:38 Manual Slide Review Indicated 08/28/21 04:38 WBC Morphology NORMAL APPEARANCE (NORMAL) 08/28/21 04:38 Platelet Estimate NORMAL (130-450,000) (NORMAL) 08/28/21 04:38 Platelet Morphology NORMAL APPEARANCE (NORMAL) 08/28/21 04:38 RBC Morph Micro Appear 1+ HYPOCHROMASIA (NORMAL) 1+ STOMATOCYTES (NORMAL) 08/28/21 04:38 RBC Morph Micro Appear 1+ HYPOCHROMASIA (NORMAL) 1+ STOMATOCYTES (NORMAL) 08/28/21 04:38 Bld Gas Analysis Time 0950 08/19/21 09:50 Sample Site RIGHT RADIAL 08/19/21 09:50 ABG pH 7.39 (7.35-7.45) 08/19/21 09:50 ABG pCO2 78 mmHg (34-45) H* 08/19/21 09:50 ABG pO2 92 mmHg (80-100) 08/19/21 09:50 ABG HCO3 46.2 mmol/L (22.0-26.0) H 08/19/21 09:50 ABG Total CO2 48.6 MMOL/L (21.0-29.0) H* 08/19/21 09:50 ABG O2 Saturation 97 % (94-98) 08/19/21 09:50 ABG Base Excess 17.2 mmol/L (-2.0-3.0) H 08/19/21 09:50 Reynaldo Test POSITIVE 08/19/21 09:50 VBG pH 7.170 (7.31-7.41) L 08/12/21 11:22 VBG pCO2 102.1 mmHg (41-51) H 08/12/21 11:22 VBG pO2 85.8 mmHg (25-47) H 08/12/21 11:22 VBG HCO3 36.4 mmol/L (23-28) H 08/12/21 11:22 VBG Total CO2 39.5 mmol/L (24-29) H 08/12/21 11:22 VBG O2 Saturation 95.4 % (60-80) H 08/12/21 11:22 VBG Base Excess 3.6 mmol/L (-2 - +2) H 08/12/21 11:22 Respiration Rate 15 b/min 08/19/21 09:50 O2 Delivery Device BiPAP 08/19/21 09:50 Vent Mode SYNCHRONOUS/TIMES 08/19/21 09:50 FiO2 35.00 08/19/21 09:50 Pressure Support Vent 3 cmH2O 08/12/21 18:15 EPAP 8 cmH2O 08/19/21 09:50 IPAP 16 cmH2O 08/19/21 09:50 Sodium 141 mmol/L (135-145) 08/28/21 04:38 Potassium 4.2 mmol/L (3.5-5.0) 08/28/21 04:38 Chloride 84 mmol/L (101-111) L 08/28/21 04:38 Carbon Dioxide 48 mmol/L (21-32) H* 08/28/21 04:38 Anion Gap 9.0 (6-13) 08/28/21 04:38 BUN 28 mg/dL (6-20) H 08/28/21 04:38 Creatinine 0.7 mg/dL (0.6-1.2) 08/28/21 04:38 Estimated GFR (MDRD) 112 (>89) 08/28/21 04:38 Glucose 236 mg/dL (70-100) H 08/28/21 04:38 POC Whole Bld Glucose 203 mg/dL (70 - 100) H 08/28/21 16:30 Estimat Average Glucose 146 mg/dL (70-100) H 08/13/21 14:53 Hemoglobin A1c % 6.7 % (4.27-6.07) H 08/13/21 14:53 Calcium 8.7 mg/dL (8.5-10.3) 08/28/21 04:38 Phosphorus 3.1 mg/dL (2.5-4.6) 08/19/21 04:03 Magnesium 1.9 mg/dL (1.7-2.8) 08/19/21 04:03 Total Bilirubin 0.6 mg/dL (0.2-1.0) 08/12/21 08:40 AST 14 IU/L (10-42) 08/12/21 08:40 ALT 15 IU/L (10-60) 08/12/21 08:40 Alkaline Phosphatase 119 IU/L (42-121) 08/12/21 08:40 Troponin I High Sens 27.4 ng/L (2.3-19.7) H* 08/12/21 11:22 B-Natriuretic Peptide 161 pg/mL (5-100) H 08/12/21 08:40 Total Protein 7.2 g/dL (6.7-8.2) 08/12/21 08:40 Albumin 3.2 g/dL (3.2-5.5) 08/12/21 08:40 Globulin 4.0 g/dL (2.1-4.2) 08/12/21 08:40 Albumin/Globulin Ratio 0.8 (1.0-2.2) L 08/12/21 08:40 Lipase 30 U/L (22-51) 08/12/21 08:40 Nasal Adenovirus (PCR) NOT DETECTED 08/12/21 08:40 Nasal B. parapertussis DNA (PCR) NOT DETECTED 08/12/21 08:40 Nasal Coronavir 229E PCR NOT DETECTED 08/12/21 08:40 Nasal Coronavir HKU1 PCR NOT DETECTED 08/12/21 08:40 Nasal Coronavir NL63 PCR NOT DETECTED 08/12/21 08:40 Nasal Coronavir OC43 PCR NOT DETECTED 08/12/21 08:40 Nasal Enterovir/Rhinovir PCR NOT DETECTED 08/12/21 08:40 Nasal Influenza B PCR NOT DETECTED 08/12/21 08:40 Nasal Influenza A PCR NOT DETECTED 08/12/21 08:40 Nasal Parainfluen 1 PCR NOT DETECTED 08/12/21 08:40 Nasal Parainfluen 2 PCR NOT DETECTED 08/12/21 08:40 Nasal Parainfluen 3 PCR NOT DETECTED 08/12/21 08:40 Nasal Parainfluen 4 PCR NOT DETECTED 08/12/21 08:40 Nasal RSV (PCR) NOT DETECTED 08/12/21 08:40 Nasal Screen MRSA (PCR) NEGATIVE (NEGATIVE) 08/12/21 14:00 Nasal B.pertussis DNA PCR NOT DETECTED 08/12/21 08:40 Nasal C.pneumoniae (PCR) NOT DETECTED 08/12/21 08:40 Armando Human Metapneumo PCR NOT DETECTED 08/12/21 08:40 Nasal M.pneumoniae (PCR) NOT DETECTED 08/12/21 08:40 Nasal SARS-CoV-2 (PCR) NOT DETECTED 08/12/21 08:40 - Procedures Procedures: Procedures ENDOSC POLYPECTOMY OF LG INTEST (02/27/14)
[2021-08-28] MEDS: ATORVASTATIN 40 MG TABLET PO SCH (20:43)
[2021-08-29] MEDS: SODIUM CHLORIDE FLUSH 0.9% 10 ML SYRINGE IVP PRN (00:19)
[2021-08-29 05:13] LABS: BASOPHILS % (AUTO) 0.3 %; EOSINOPHILS # (AUTO) 0.2 10^3/uL (0.0-0.7); EOSINOPHILS % (AUTO) 2.7 %; HCT - HEMATOCRIT 41.3 % (42.0-52.0); HGB - HEMOGLOBIN 10.9 g/dL (14.0-18.0); LYMPHOCYTES # (AUTO) 1.1 10^3/uL (1.5-3.5); LYMPHOCYTES % (AUTO) 16.2 %; MEAN CORPUSCULAR HEMOGLOBIN 23.5 pg (27.0-31.0); MEAN CORPUSCULAR HGB CONC 26.4 g/dL (32.0-36.0); MEAN CORPUSCULAR VOLUME 89.2 fL (80.0-94.0); MEAN PLATELET VOLUME 9.9 fL (7.4-11.4); MONOCYTES # (AUTO) 0.4 10^3/uL (0.0-1.0); MONOCYTES % (AUTO) 6.1 %; NEUTROPHILS # (AUTO) 5.1 10^3/uL (1.5-6.6); NEUTROPHILS % (AUTO) 74.4 %; PLT - PLATELET COUNT 274 10^3/uL (130-450); RED BLOOD COUNT 4.63 10^6/uL (4.70-6.10); RED CELL DISTRIBUTION WIDTH 17.2 % (12.0-15.0); WHITE BLOOD COUNT 6.9 x10^3/uL (4.8-10.8)
[2021-08-29 05:21] LABS: SLIDE REVIEW? Indicated
[2021-08-29 05:27] LABS: CALCIUM 9.1 mg/dL (8.5-10.3); CREATININE 0.8 mg/dL (0.6-1.2); POTASSIUM 4.2 mmol/L (3.5-5.0)
[2021-08-29 05:40] LABS: PLATELET ESTIMATE, MANUAL NORMAL (130-450,000) (NORMAL); PLATELET MORPHOLOGY NORMAL APPEARANCE (NORMAL); WBC MORPHOLOGY (MULTIPLE) NORMAL APPEARANCE (NORMAL)
[2021-08-29] MEDS: FUROSEMIDE 40 MG/4 ML VIAL IVP SCH (07:00)
[2021-08-29] MEDS: INSULIN GLARGINE 300 UNIT/3 ML PEN SUBQ SCH ×2 (07:01→19:14)
[2021-08-29] MEDS: INSULIN ASPART 300 UNIT/3 ML PEN SUBQ SCH ×7 (08:11→21:59)
[2021-08-29] MEDS: ENOXAPARIN 40 MG/0.4 ML SYRINGE SUBQ SCH ×2 (08:12→21:56)
[2021-08-29] MEDS: CHOLECALCIFEROL 25 MCG TABLET PO SCH (08:12)
[2021-08-29] MEDS: LOSARTAN 50 MG TABLET PO SCH (08:12)
[2021-08-29] MEDS: polyethylene glycoL 3350 17 GM PACKET PO SCH (08:13)
[2021-08-29] MEDS: SENNA 8.6 MG TABLET PO SCH (08:13)
[2021-08-29] MEDS: DOCUSATE SODIUM 250 MG CAPSULE PO SCH (08:13)
[2021-08-29] MEDS: TAMSULOSIN 0.4 MG CAPSULE PO SCH (08:13)
[2021-08-29] MEDS: SERTRALINE 50 MG TABLET PO SCH (08:13)
[2021-08-29] MEDS: NYSTATIN POWDER 15 GM TOP SCH ×2 (08:14→22:07)
[2021-08-29 08:39] LABS: MAGNESIUM 2.2 mg/dL (1.7-2.8); PHOSPHORUS 3.4 mg/dL (2.5-4.6)
--- NOTE | 2021-08-29 18:24 | PROVIDER PROGRESS NOTE ---
Assessment/Plan - Problem List (1) Acute on chronic respiratory failure with hypoxia and hypercapnia Assessment/Plan: No dyspnea, chest pain, or cough reported to his RN. He is on home O2 at 4L/min in addition to BiPAP at night which he is on here and was non-compliant with prior to hospitalization. Serum CO2 continues to be elevated which is chronic. (CO2 trends from previous admission in December 2020 were 37 to >45). Continue BiPAP nightly. Since this is his own BIPAP unit (per his RN and per RT), we are able to move him out of ICU (per BIPAP protocol of this hospital), to a Med Surg bed/status, done yesterday. Continue daytime O2 at 4L/min as per baseline. Will stop iv Lasix bid, he got one a.m. dose today, Lasix is causing contraction alkalosis. Resume once daily Lasix starting tomorrow. (2) CO2 narcosis Assessment/Plan: Serum CO2 is chronic elevated. Patient is alert despite this, but had myoclonus. Serum Ca is ok Continue BiPap at night and during the day intermittently if mental status deteriorates due to CO2 retention. (3) Anasarca Assessment/Plan: Patient continues to have 2+ pitting pedal edema that extends up to thighs but is less tense since on iv Lasix for the last 2 days. He denies increased work of breathing. His anasarca is most likely due to moderate to severe right ventricle enlargement and mild pulmonary hypertension with PAPS of 38 found during 01/13/2021 Echocardiogram. Continue Lasix 40mg IVP twice daily today Follow I's and O's Follow electrolytes, including occasional serum Mg (4) Obesity hypoventilation syndrome Assessment/Plan: Patient has history of obesity hypoventilation syndrome and obstructive sleep apnea. At baseline he is on home O2 at 4L/min. He was also instructed to be on BiPAP nightly, which he was non-compliant with prior to hospitalization. He is diuresing by increasing his Lasix 40mg IV bis. Patient reports improvement with his work of breathing due to decreased abdominal pressure after starting diuretic. Continue BiPAP nightly. Continue daytime O2 at 4L/min as per baseline. Continue with PT to increase activity tolerance. (5) YONATAN on CPAP Assessment/Plan: Patient has history of YONATAN with CPAP at night, which he was non-compliant with prior to hospitalization. This morning he reports sleeping well and feeling Continue BiPAP nightly. Plan for discharge to care home care facility for continued medical management and BiPap compliance. (6) Mild aortic stenosis Assessment/Plan: He has a Grade 3/6 holosystolic murmur at right sternal border. 2D echocardiogram done January 13, 2021 showed mild aortic stenosis with mean gradi ent 25mmHg. Denies dizziness, syncope, or exertional angina. Continue to monitor hemodynamic status. (7) Chronic venous stasis dermatitis of both lower extremities Assessment/Plan: Bilateral pedal edema 2+ that extends up to thighs that is slightly improved from yesterday. Patient reports edema has improved significantly. Scaly plaques and hyperpigmentation to bilateral lower extremities are unchanged and consistent with chronic venous stasis. Keep lower extremity wrapped with Jon wrap compressions and elevate as tolerated. (8) Controlled type 2 diabetes mellitus without complication, with long-term current use of insulin Assessment/Plan: History of type 2 Diabetes Mellitus. Admission A1C 6.7. Controlled as outpatient with Metformin 1000mg BID, Aspart Insulin 4 units TID with meals, Glargine 30 units BID, and Empagliflozin 12.5 daily. Bedside glucose is ranging 150-200's On high sliding scale Aspart Insulin in addition to increased 5 to 7 units of meal coverage. His Lantus was also increased to 25 units subcu twice daily. Continue Accu-Checks before meals and bedtime, ss coverage, tid Insulin and La ntus bid (9) Self neglect Assessment/Plan: Patient is agreeable to finding an alternative living situation due to limited ability to care for himself. He would like to be transferred to the [place] but attempts have been unsuccessful due to bed availability. He is also agreeable to transferring to a [place] approved facility. right of way worker is continuing to assist in disposition/placement and working to place patient at a [facility] -approved facility. Continue with physical therapy to increase strength and stamina. - Current Meds Current Meds: Current Medications Generic Name Dose Route Start Last Admin Trade Name Freq PRN Reason Stop Dose Admin Acetaminophen 650 mg 08/12/21 10:28 08/25/21 16:08 Acetaminophen 325 Mg Tablet PO 650 mg Q4HR PRN Administration Pain 1 to 4 Atorvastatin Calcium 80 mg 08/17/21 21:00 08/28/21 20:43 Atorvastatin 40 Mg Tablet PO 80 mg QPM JAYNA Administration Cholecalciferol 50 mcg 08/25/21 13:00 08/29/21 08:12 Cholecalciferol 25 Mcg Tablet PO 50 mcg DAILY JAYNA Administration Docusate Sodium 250 - 500 mg 08/23/21 09:00 08/29/21 08:13 Docusate Sodium 250 Mg Capsule PO Not Given DAILY JAYNA Enoxaparin Sodium 40 mg 08/13/21 09:00 08/29/21 08:12 Enoxaparin 40 Mg/0.4 Ml Syringe SUBQ 40 mg BID JAYNA Administration Insulin Aspart 3 - 11 unit 08/23/21 12:45 08/29/21 17:35 Insulin Aspart 300 Unit/3 Ml Pen SUBQ 7 unit 0800,1200,1700,2100 JAYNA Administration Protocol Insulin Aspart 9 unit 08/27/21 17:00 08/29/21 12:12 Insulin Aspart 300 Unit/3 Ml Pen SUBQ 9 unit TIDWM JAYNA Administration Losartan Potassium 100 mg 08/18/21 09:00 08/29/21 08:12 Losartan 50 Mg Tablet PO 100 mg DAILY JAYNA Administration Mineral Oil 1 applic 08/17/21 09:49 08/25/21 10:18 Min Oil/Dimethicon/Coconut Oil 92 Gm Tube TOP 1 applic PRN PRN Administration Skin Care Nystatin 1 applic 08/16/21 21:00 08/29/21 08:14 Nystatin Powder 15 Gm TOP 1 applic BID JAYNA Administration Oxycodone HCl 5 mg 08/12/21 10:28 08/25/21 05:25 Oxycodone 5 Mg Tablet PO 5 mg Q4HR PRN Administration Pain 5 to 7 Polyethylene Glycol 17 gm 08/16/21 17:04 08/29/21 08:13 Polyethylene Glycol 3350 17 Gm Packet PO 17 gm DAILY JAYNA Administration Senna 8.6 - 17.2 mg 08/14/21 09:00 08/29/21 08:13 Senna 8.6 Mg Tablet PO Not Given DAILY JAYNA Sertraline HCl 200 mg 08/13/21 21:00 08/29/21 08:13 Sertraline 50 Mg Tablet PO 200 mg DAILY JAYNA Administration Sodium Chloride 10 ml 08/12/21 10:28 08/29/21 00:19 Sodium Chloride Flush 0.9% 10 Ml Syringe IVP 10 ml PRN PRN Administration NEEDED PER PROVIDER ORDERS Tamsulosin HCl 0.4 mg 08/13/21 09:00 08/29/21 08:13 Tamsulosin 0.4 Mg Capsule PO 0.4 mg DAILY JAYNA Administration - Lab Result Fish Bone Diagrams: 08/30/21 04:42 08/30/21 13:15 - Additional Planning My Orders: My Active Orders 08/29/21 18:00 Insulin Glargine [Lantus Solostar] 30 unit SUBQ 0600,1800 08/30/21 05:00 MAGNESIUM [CHEM] DAILYLAB 08/30/21 08:00 Furosemide [Lasix] 40 mg PO 0800,1300 Subjective - Subjective Nursing Reports: Other (Pt has muscle jerks and was less alert this morning. After having a nap on BIPAP, he felt better and was back to his baseline.) Objective Vital Signs: Vital Signs - 24 hr 08/29/21 08/29/21 08/29/21 00:23 08:19 13:00 Temperature 36.6 C Heart Rate [ 78 89 79 Monitoring electrodes] Respiratory 19 21 24 Rate Blood Pressure 126/66 [Left Brachial artery] Blood Pressure 152/61 H [Right Brachial artery] O2 Saturation 97 92 92 08/29/21 16:13 Temperature 36.2 C L Heart Rate [ 76 Monitoring electrodes] Respiratory 22 Rate Blood Pressure 127/63 [Left Brachial artery] Blood Pressure [Right Brachial artery] O2 Saturation 98 Oxygen O2 Source Nasal cannula Oxygen Flow Rate 4 I&O (Last 24 Hrs): Intake and Output Totals x24h 08/27/21 08/28/21 08/29/21 23:59 23:59 23:59 Intake Total 1860 1505 1650 Output Total 2450 1425 1200 Balance -590 80 450 General: Alert, Oriented x3 HEENT: Mucous membr. moist/pink, Other Neck: Other (Obese) Neuro: Alert, Non Focal Respiratory: No respiratory distress (when on O2 via n.c.) Abdomen: Other (obese with pannus) Extremities: Other (4+ pitting edema to upper abdomen) - Results Results: Laboratory Results WBC 6.9 x10^3/uL (4.8-10.8) 08/29/21 04:43 RBC 4.63 10^6/uL (4.70-6.10) L 08/29/21 04:43 Hgb 10.9 g/dL (14.0-18.0) L 08/29/21 04:43 Hct 41.3 % (42.0-52.0) L 08/29/21 04:43 MCV 89.2 fL (80.0-94.0) 08/29/21 04:43 MCH 23.5 pg (27.0-31.0) L 08/29/21 04:43 MCHC 26.4 g/dL (32.0-36.0) L 08/29/21 04:43 RDW 17.2 % (12.0-15.0) H 08/29/21 04:43 Plt Count 274 10^3/uL (130-450) 08/29/21 04:43 MPV 9.9 fL (7.4-11.4) 08/29/21 04:43 Neut # (Auto) 5.1 10^3/uL (1.5-6.6) 08/29/21 04:43 Lymph # (Auto) 1.1 10^3/uL (1.5-3.5) L 08/29/21 04:43 [place] # (Auto) 0.4 10^3/uL (0.0-1.0) 08/29/21 04:43 Eos # (Auto) 0.2 10^3/uL (0.0-0.7) 08/29/21 04:43 Baso # (Auto) 0.0 10^3/uL (0.0-0.1) 08/29/21 04:43 Absolute Nucleated RBC 0.00 x10^3/uL 08/29/21 04:43 Nucleated RBC % 0.0 /100WBC 08/29/21 04:43 Manual Slide Review Indicated 08/29/21 04:43 WBC Morphology NORMAL APPEARANCE (NORMAL) 08/29/21 04:43 Platelet Estimate NORMAL (130-450,000) (NORMAL) 08/29/21 04:43 Platelet Morphology NORMAL APPEARANCE (NORMAL) 08/29/21 04:43 RBC Morph Micro Appear 1+ HYPOCHROMASIA (NORMAL) 1+ STOMATOCYTES (NORMAL) 1 10/29/20 04:43 RBC Morph Micro Appear 1+ HYPOCHROMASIA (NORMAL) 1+ STOMATOCYTES (NORMAL) 08/29/21 04:43 Bld Gas Analysis Time 0950 08/19/21 09:50 Sample Site RIGHT RADIAL 08/19/21 09:50 ABG pH 7.39 (7.35-7.45) 08/19/21 09:50 ABG pCO2 78 mmHg (34-45) H* 08/19/21 09:50 ABG pO2 92 mmHg (80-100) 08/19/21 09:50 ABG HCO3 46.2 mmol/L (22.0-26.0) H 08/19/21 09:50 ABG Total CO2 48.6 MMOL/L (21.0-29.0) H* 08/19/21 09:50 ABG O2 Saturation 97 % (94-98) 08/19/21 09:50 ABG Base Excess 17.2 mmol/L (-2.0-3.0) H 08/19/21 09:50 Reynaldo Test POSITIVE 08/19/21 09:50 VBG pH 7.170 (7.31-7.41) L 08/12/21 11:22 VBG pCO2 102.1 mmHg (41-51) H 08/12/21 11:22 VBG pO2 85.8 mmHg (25-47) H 08/12/21 11:22 VBG HCO3 36.4 mmol/L (23-28) H 08/12/21 11:22 VBG Total CO2 39.5 mmol/L (24-29) H 08/12/21 11:22 VBG O2 Saturation 95.4 % (60-80) H 08/12/21 11:22 VBG Base Excess 3.6 mmol/L (-2 - +2) H 08/12/21 11:22 Respiration Rate 15 b/min 08/19/21 09:50 O2 Delivery Device BiPAP 08/19/21 09:50 Vent Mode SYNCHRONOUS/TIMES 08/19/21 09:50 FiO2 35.00 08/19/21 09:50 Pressure Support Vent 3 cmH2O 08/12/21 18:15 EPAP 8 cmH2O 08/19/21 09:50 IPAP 16 cmH2O 08/19/21 09:50 Sodium 146 mmol/L (135-145) H 08/29/21 04:43 Potassium 4.2 mmol/L (3.5-5.0) 08/29/21 04:43 Chloride 85 mmol/L (101-111) L 08/29/21 04:43 Carbon Dioxide 52 mmol/L (21-32) H* 08/29/21 04:43 Anion Gap 9.0 (6-13) 08/29/21 04:43 BUN 30 mg/dL (6-20) H 08/29/21 04:43 Creatinine 0.8 mg/dL (0.6-1.2) 08/29/21 04:43 Estimated GFR (MDRD) 96 (>89) 08/29/21 04:43 Glucose 201 mg/dL (70-100) H 08/29/21 04:43 POC Whole Bld Glucose 236 mg/dL (70 - 100) H 08/29/21 16:42 Estimat Average Glucose 146 mg/dL (70-100) H 08/13/21 14:53 Hemoglobin A1c % 6.7 % (4.27-6.07) H 08/13/21 14:53 Calcium 9.1 mg/dL (8.5-10.3) 08/29/21 04:43 Phosphorus 3.4 mg/dL (2.5-4.6) 08/29/21 04:43 Magnesium 2.2 mg/dL (1.7-2.8) 08/29/21 04:43 Total Bilirubin 0.6 mg/dL (0.2-1.0) 08/12/21 08:40 AST 14 IU/L (10-42) 08/12/21 08:40 ALT 15 IU/L (10-60) 08/12/21 08:40 Alkaline Phosphatase 119 IU/L (42-121) 08/12/21 08:40 Troponin I High Sens 27.4 ng/L (2.3-19.7) H* 08/12/21 11:22 B-Natriuretic Peptide 161 pg/mL (5-100) H 08/12/21 08:40 Total Protein 7.2 g/dL (6.7-8.2) 08/12/21 08:40 Albumin 3.2 g/dL (3.2-5.5) 08/12/21 08:40 Globulin 4.0 g/dL (2.1-4.2) 08/12/21 08:40 Albumin/Globulin Ratio 0.8 (1.0-2.2) L 08/12/21 08:40 Lipase 30 U/L (22-51) 08/12/21 08:40 Nasal Adenovirus (PCR) NOT DETECTED 08/12/21 08:40 Nasal B. parapertussis DNA (PCR) NOT DETECTED 08/12/21 08:40 Nasal Coronavir 229E PCR NOT DETECTED 08/12/21 08:40 Nasal Coronavir HKU1 PCR NOT DETECTED 08/12/21 08:40 Nasal Coronavir NL63 PCR NOT DETECTED 08/12/21 08:40 Nasal Coronavir OC43 PCR NOT DETECTED 08/12/21 08:40 Nasal Enterovir/Rhinovir PCR NOT DETECTED 08/12/21 08:40 Nasal Influenza B PCR NOT DETECTED 08/12/21 08:40 Nasal Influenza A PCR NOT DETECTED 08/12/21 08:40 Nasal Parainfluen 1 PCR NOT DETECTED 08/12/21 08:40 Nasal Parainfluen 2 PCR NOT DETECTED 08/12/21 08:40 Nasal Parainfluen 3 PCR NOT DETECTED 08/12/21 08:40 Nasal Parainfluen 4 PCR NOT DETECTED 08/12/21 08:40 Nasal RSV (PCR) NOT DETECTED 08/12/21 08:40 Nasal Screen MRSA (PCR) NEGATIVE (NEGATIVE) 08/12/21 14:00 Nasal B.pertussis DNA PCR NOT DETECTED 08/12/21 08:40 Nasal C.pneumoniae (PCR) NOT DETECTED 08/12/21 08:40 Armando Human Metapneumo PCR NOT DETECTED 08/12/21 08:40 Nasal M.pneumoniae (PCR) NOT DETECTED 08/12/21 08:40 Nasal SARS-CoV-2 (PCR) NOT DETECTED 08/12/21 08:40 - Procedures Procedures: Procedures ENDOSC POLYPECTOMY OF LG INTEST (02/27/14)
[2021-08-29] MEDS: ATORVASTATIN 40 MG TABLET PO SCH (22:18)
[2021-08-30 05:06] LABS: BASOPHILS % (AUTO) 0.4 %; EOSINOPHILS # (AUTO) 0.2 10^3/uL (0.0-0.7); EOSINOPHILS % (AUTO) 1.8 %; HCT - HEMATOCRIT 44.1 % (42.0-52.0); HGB - HEMOGLOBIN 11.2 g/dL (14.0-18.0); LYMPHOCYTES % (AUTO) 12.2 %; MEAN CORPUSCULAR HEMOGLOBIN 23.4 pg (27.0-31.0); MEAN CORPUSCULAR HGB CONC 25.4 g/dL (32.0-36.0); MEAN CORPUSCULAR VOLUME 92.3 fL (80.0-94.0); MEAN PLATELET VOLUME 9.9 fL (7.4-11.4); MONOCYTES # (AUTO) 0.5 10^3/uL (0.0-1.0); NEUTROPHILS # (AUTO) 6.4 10^3/uL (1.5-6.6); PLT - PLATELET COUNT 294 10^3/uL (130-450); RED BLOOD COUNT 4.78 10^6/uL (4.70-6.10); RED CELL DISTRIBUTION WIDTH 17.2 % (12.0-15.0); WHITE BLOOD COUNT 8.1 x10^3/uL (4.8-10.8)
[2021-08-30 05:10] LABS: SLIDE REVIEW? Indicated
[2021-08-30 05:26] LABS: PLATELET ESTIMATE, MANUAL NORMAL (130-450,000) (NORMAL); PLATELET MORPHOLOGY NORMAL APPEARANCE (NORMAL); WBC MORPHOLOGY (MULTIPLE) NORMAL APPEARANCE (NORMAL)
[2021-08-30 05:28] LABS: CALCIUM 9.3 mg/dL (8.5-10.3); CREATININE 0.8 mg/dL (0.6-1.2); MAGNESIUM 2.4 mg/dL (1.7-2.8); POTASSIUM 4.8 mmol/L (3.5-5.0)
[2021-08-30] MEDS: INSULIN GLARGINE 300 UNIT/3 ML PEN SUBQ SCH ×2 (06:46→18:35)
[2021-08-30] MEDS ORDERED: FUROSEMIDE 40 MG TABLET PO SCH (08:00)
[2021-08-30] MEDS ORDERED: SODIUM CHLORIDE 0.9% 500 ML IV ONE (08:11)
[2021-08-30] MEDS: INSULIN ASPART 300 UNIT/3 ML PEN SUBQ SCH ×7 (08:48→22:04)
[2021-08-30] MEDS: NYSTATIN POWDER 15 GM TOP SCH ×2 (08:55→21:05)
[2021-08-30] MEDS: ENOXAPARIN 40 MG/0.4 ML SYRINGE SUBQ SCH ×2 (08:59→20:54)
[2021-08-30 11:52] LABS: ABG PH 7.39 (7.35-7.45)
[2021-08-30 11:55] LABS: ABG HCO3 59.7 mmol/L (22.0-26.0)
[2021-08-30 11:56] LABS: ABG BASE EXCESS 27.9 mmol/L (-2.0-3.0); ALLEN TEST POSITIVE
[2021-08-30 12:00] LABS: ABG OXYGEN SATURATION 77 % (94-98); ABG PCO2 100 mmHg (34-45); ABG PO2 47 mmHg (80-100); ABG TCO2 61.8 MMOL/L (21.0-29.0)
[2021-08-30] MEDS: FUROSEMIDE 40 MG TABLET PO SCH (12:13)
[2021-08-30] MEDS: LOSARTAN 50 MG TABLET PO SCH (12:13)
[2021-08-30] MEDS: polyethylene glycoL 3350 17 GM PACKET PO SCH (12:19)
[2021-08-30] MEDS: SENNA 8.6 MG TABLET PO SCH (12:19)
[2021-08-30] MEDS: DOCUSATE SODIUM 250 MG CAPSULE PO SCH (12:20)
--- NOTE | 2021-08-30 13:34 | PROVIDER PROGRESS NOTE ---
Assessment/Plan - Problem List (1) Confusion Assessment/Plan: ABG was done and showed desaturation and very high CO2. BP and HR are normal. Labs show higher serum bicarb of 52 Suspect this confusion is due to hypoxia and CO2 narcosis. Will transfer into ICU, start high settings on BIPAP and ventilate/oxygenate. Recheck ABG and adjust (2) Acute on chronic respiratory failure with hypoxia and hypercapnia Assessment/Plan: Serum CO2 continues to elevate, which is chronic. (CO2 trends from previous admission in December 2020 were 37 to >45). Continue BiPAP now since needed for ventilation. Will transfer back into ICU. We stopped iv Lasix and will stop the po Lasix is causing contraction alkalosis. Will give a saline 500 cc bolus. Monitor BMP daily (3) CO2 narcosis Assessment/Plan: Serum CO2 is chronic elevated. Patient is not alert, and is confused today Continue BiPap continuously since mental status deteriorated today, presumably due to CO2 retention. (4) Anasarca Assessment/Plan: Patient continues to have alot of pitting pedal edema that extends up to thighs but is less tense since on iv Lasix for the last 2 days. He denies increased work of breathing. His anasarca is most likely due to moderate to severe right ventricle enlargement and mild pulmonary hypertension with PAPS of 38 found during 01/13/2021 Echocardiogram. Follow I's and O's Follow electrolytes, including occasional serum Mg (5) Obesity hypoventilation syndrome Assessment/Plan: Patient has history of obesity hypoventilation syndrome and obstructive sleep apnea. At baseline he is on home O2 at 4L/min. He was also instructed to be on BiPAP nightly, which he was non-compliant with prior to hospitalization. Continue BiPAP today in ICU, then back to daytime O2 per n.c. at 4L/min, when clinically appropriate, as per baseline. Continue with PT to increase activity tolerance, today on hnold due to confusion. (6) YONATAN on CPAP Assessment/Plan: Patient has history of YONATAN with CPAP at night, which he was non-compliant with prior to hospitalization. This morning he reports sleeping well and feeling Continue BiPAP nightly. Plan for discharge to SNF for PT rehab then pos to [facility] facility for continued medical management and BiPap compliance. (7) Mild aortic stenosis Assessment/Plan: He has a Grade 3/6 holosystolic murmur at right sternal border. 2D echocardiogram done January 13, 2021 showed mild aortic stenosis with mean gradient 25mmHg. Denies dizziness, syncope, or exertional angina. Continue to monitor hemodynamic status. (8) Chronic venous stasis dermatitis of both lower extremities Assessment/Plan: Bilateral pedal edema 4+ that extends up to thighs. Scaly plaques and hyperpigmentation to bilateral lower extremities are unchanged and consistent with chronic venous stasis. Keep lower extremity wrapped with Jon wrap compressions and elevate as tolerated. (9) Controlled type 2 diabetes mellitus without complication, with long-term current use of insulin Assessment/Plan: History of type 2 Diabetes Mellitus. Admission A1C 6.7. Controlled as outpatient with Metformin 1000mg BID, Aspart Insulin 4 units TID with meals, Glargine 30 units BID, and Empagliflozin 12.5 daily. Bedside glucose is ranging 150-200's On high sliding scale Aspart Insulin in addition to increased to 9 units of meal coverage. His Lantus was also increased to 30 units subcu twice daily. Continue Accu-Checks before meals and bedtime, ss coverage, tid Insulin and Lantus bid (10) Self neglect Assessment/Plan: Patient is agreeable to finding an alternative living situation due to limited ability to care for himself. [facility] due to [facility] availability. He is also agreeable to transferring to a [facility] approved facility. general house worker is continuing to assist in disposition/placement and working to place patient at a [facility] facility. Continue with physical therapy to increase strength and stamina. - Current Meds Current Meds: Current Medications Generic Name Dose Route Start Last Admin Trade Name Freq PRN Reason Stop Dose Admin Acetaminophen 650 mg 08/12/21 10:28 08/25/21 16:08 Acetaminophen 325 Mg Tablet PO 650 mg Q4HR PRN Administration Pain 1 to 4 Atorvastatin Calcium 80 mg 08/17/21 21:00 08/29/21 22:18 Atorvastatin 40 Mg Tablet PO Not Given QPM JAYNA Cholecalciferol 50 mcg 08/25/21 13:00 08/29/21 08:12 Cholecalciferol 25 Mcg Tablet PO 50 mcg DAILY JAYNA Administration Docusate Sodium 250 - 500 mg 08/23/21 09:00 08/30/21 12:20 Docusate Sodium 250 Mg Capsule PO Not Given DAILY [facility] Enoxaparin Sodium 40 mg 08/13/21 09:00 08/30/21 08:59 Enoxaparin 40 Mg/0.4 Ml Syringe SUBQ 40 mg BID JAYNA Administration Furosemide 40 mg 08/30/21 09:00 08/30/21 12:13 Furosemide 40 Mg Tablet PO 40 mg DAILY JAYNA Administration Insulin Aspart 3 - 11 unit 08/23/21 12:45 08/30/21 12:19 Insulin Aspart 300 Unit/3 Ml Pen SUBQ Not Given 0800,1200,1700,2100 [facility] Protocol Insulin Aspart 9 unit 08/27/21 17:00 08/30/21 12:24 Insulin Aspart 300 Unit/3 Ml Pen SUBQ Not Given TIDWM [facility] Insulin Glargine 30 unit 08/29/21 18:00 08/30/21 06:46 Insulin Glargine 300 Unit/3 Ml Pen SUBQ 30 unit 0600,1800 JAYNA Administration Losartan Potassium 100 mg 08/18/21 09:00 08/30/21 12:13 Losartan 50 Mg Tablet PO 100 mg DAILY JAYNA Administration Mineral Oil 1 applic 08/17/21 09:49 08/25/21 10:18 Min Oil/Dimethicon/Coconut Oil 92 Gm Tube TOP 1 applic PRN PRN Administration Skin Care Nystatin 1 applic 08/16/21 21:00 08/30/21 08:55 Nystatin Powder 15 Gm TOP 1 applic BID JAYNA Administration Oxycodone HCl 5 mg 08/12/21 10:28 08/25/21 05:25 Oxycodone 5 Mg Tablet PO 5 mg Q4HR PRN Administration Pain 5 to 7 Polyethylene Glycol 17 gm 08/16/21 17:04 08/30/21 12:19 Polyethylene Glycol 3350 17 Gm Packet PO Not Given DAILY [facility] Senna 8.6 - 17.2 mg 08/14/21 09:00 08/30/21 12:19 Senna 8.6 Mg Tablet PO Not Given DAILY [facility] Sertraline HCl 200 mg 08/13/21 21:00 08/29/21 08:13 Sertraline 50 Mg Tablet PO 200 mg DAILY JAYNA Administration Sodium Chloride 10 ml 08/12/21 10:28 08/29/21 00:19 Sodium Chloride Flush 0.9% 10 Ml Syringe IVP 10 ml PRN PRN Administration NEEDED PER PROVIDER ORDERS Tamsulosin HCl 0.4 mg 08/13/21 09:00 08/29/21 08:13 Tamsulosin 0.4 Mg Capsule PO 0.4 mg DAILY JAYNA Administration - Lab Result Fish Bone Diagrams: 08/30/21 04:42 08/30/21 13:15 - Additional Planning My Orders: My Active Orders 08/29/21 18:00 Insulin Glargine [Lantus Solostar] 30 unit SUBQ 0600,1800 08/30/21 10:42 Daily Weight [RC] 0600 08/30/21 12:41 BIPAP/CPAP - RT [RC] Q2H BiPAP/CPAP Setting Changes [RC] ONCE 08/30/21 13:30 ABG - ARTERIAL BLOOD GAS [BG] Routine 08/30/21 13:31 RT - Obtain Arterial Specimen [RC] .ONCE 08/30/21 13:33 Telemetry- [RC] Q4HR Transfer [Admit \ Transfer \ Status] [RC] .ONCE Subjective - Subjective Patient Reports: Other (Appears in mild distress) Nursing Reports: Confused (Oriented to self only not time or place) Objective Vital Signs: Vital Signs - 24 hr 08/29/21 08/30/21 08/30/21 16:13 00:15 04:43 Temperature 36.2 C L 36.6 C 36.7 C Heart Rate Heart Rate [ 76 84 88 Monitoring electrodes] Respiratory 22 25 H 23 Rate Blood Pressure 127/63 [Left Brachial artery] Blood Pressure 135/47 H 125/41 L [Right Brachial artery] O2 Saturation 98 98 95 08/30/21 08/30/21 08/30/21 07:53 12:10 12:12 Temperature 37.3 C 36.6 C Heart Rate 76 Heart Rate [ 87 82 Monitoring electrodes] Respiratory 25 H 23 Rate Blood Pressure [Left Brachial artery] Blood Pressure 124/58 L 143/60 H [Right Brachial artery] O2 Saturation 96 79 L 08/30/21 13:15 Temperature Heart Rate Heart Rate [ 77 Monitoring electrodes] Respiratory 20 Rate Blood Pressure 124/60 [Left Brachial artery] Blood Pressure [Right Brachial artery] O2 Saturation 100 Oxygen O2 Source BIPAP Oxygen Flow Rate 4 I&O (Last 24 Hrs): Intake and Output Totals x24h 08/28/21 08/29/21 08/30/21 23:59 23:59 23:59 Intake Total 1505 2150 650 Output Total 1425 1200 100 Balance 80 950 550 General: Alert, Mild distress, Other (disoriented) HEENT: Mucous membr. moist/pink Neck: Other (Obese) Neuro: Alert, Disoriented, Non Focal Cardiovascular: Regular rate (Distant heart sounds) Respiratory: Other (clear with shallow inspirations) Abdomen: Soft (Obese with pannus) Extremities: Other (4+ edema to skin of upper abdomen) - Results Results: Laboratory Results WBC 8.1 x10^3/uL (4.8-10.8) 08/30/21 04:42 RBC 4.78 10^6/uL (4.70-6.10) 08/30/21 04:42 Hgb 11.2 g/dL (14.0-18.0) L 08/30/21 04:42 Hct 44.1 % (42.0-52.0) 08/30/21 04:42 MCV 92.3 fL (80.0-94.0) 08/30/21 04:42 MCH 23.4 pg (27.0-31.0) L 08/30/21 04:42 MCHC 25.4 g/dL (32.0-36.0) L 08/30/21 04:42 RDW 17.2 % (12.0-15.0) H 08/30/21 04:42 Plt Count 294 10^3/uL (130-450) 08/30/21 04:42 MPV 9.9 fL (7.4-11.4) 08/30/21 04:42 Neut # (Auto) 6.4 10^3/uL (1.5-6.6) 08/30/21 04:42 Lymph # (Auto) 1.0 10^3/uL (1.5-3.5) L 08/30/21 04:42 Donley # (Auto) 0.5 10^3/uL (0.0-1.0) 08/30/21 04:42 Eos # (Auto) 0.2 10^3/uL (0.0-0.7) 08/30/21 04:42 Baso # (Auto) 0.0 10^3/uL (0.0-0.1) 08/30/21 04:42 Absolute Nucleated RBC 0.00 x10^3/uL 08/30/21 04:42 Nucleated RBC % 0.0 /100WBC 08/30/21 04:42 Manual Slide Review Indicated 08/30/21 04:42 WBC Morphology NORMAL APPEARANCE (NORMAL) 08/30/21 04:42 Platelet Estimate NORMAL (130-450,000) (NORMAL) 08/30/21 04:42 Platelet Morphology NORMAL APPEARANCE (NORMAL) 08/30/21 04:42 RBC Morph Micro Appear 1+ HYPOCHROMASIA (NORMAL) 1+ STOMATOCYTES (NORMAL) 08/30/21 04:42 RBC Morph Micro Appear 1+ HYPOCHROMASIA (NORMAL) 1+ STOMATOCYTES (NORMAL) 08/30/21 04:42 Bld Gas Analysis Time 1148 08/30/21 11:40 Sample Site RIGHT RADIAL 08/30/21 11:40 ABG pH 7.39 (7.35-7.45) 08/30/21 11:40 ABG pCO2 100 mmHg (34-45) H* 08/30/21 11:40 ABG pO2 47 mmHg (80-100) L* 08/30/21 11:40 ABG HCO3 59.7 mmol/L (22.0-26.0) H 08/30/21 11:40 ABG Total CO2 61.8 MMOL/L (21.0-29.0) H* 08/30/21 11:40 ABG O2 Saturation 77 % (94-98) L* 08/30/21 11:40 ABG Base Excess 27.9 mmol/L (-2.0-3.0) H 08/30/21 11:40 Reynaldo Test POSITIVE 08/30/21 11:40 VBG pH 7.170 (7.31-7.41) L 08/12/21 11:22 VBG pCO2 102.1 mmHg (41-51) H 08/12/21 11:22 VBG pO2 85.8 mmHg (25-47) H 08/12/21 11:22 VBG HCO3 36.4 mmol/L (23-28) H 08/12/21 11:22 VBG Total CO2 39.5 mmol/L (24-29) H 08/12/21 11:22 VBG O2 Saturation 95.4 % (60-80) H 08/12/21 11:22 VBG Base Excess 3.6 mmol/L (-2 - +2) H 08/12/21 11:22 Respiration Rate 15 b/min 08/19/21 09:50 O2 Delivery Device HOME BIPAP 08/30/21 11:40 Vent Mode SYNCHRONOUS/TIMES 08/19/21 09:50 FiO2 35.00 08/19/21 09:50 PEEP 8 cmH2O 08/30/21 11:40 Pressure Support Vent 3 cmH2O 08/12/21 18:15 EPAP 8 cmH2O 08/19/21 09:50 IPAP 18 cmH2O 08/30/21 11:40 Sodium 144 mmol/L (135-145) 08/30/21 04:42 Potassium 4.8 mmol/L (3.5-5.0) 08/30/21 04:42 Chloride 86 mmol/L (101-111) L 08/30/21 04:42 Carbon Dioxide 52 mmol/L (21-32) H* 08/30/21 04:42 Anion Gap 6.0 (6-13) 08/30/21 04:42 BUN 32 mg/dL (6-20) H 08/30/21 04:42 Creatinine 0.8 mg/dL (0.6-1.2) 08/30/21 04:42 Estimated GFR (MDRD) 96 (>89) 08/30/21 04:42 Glucose 194 mg/dL (70-100) H 08/30/21 04:42 POC Whole Bld Glucose 155 mg/dL (70 - 100) H 08/30/21 11:43 Estimat Average Glucose 146 mg/dL (70-100) H 08/13/21 14:53 Hemoglobin A1c % 6.7 % (4.27-6.07) H 08/13/21 14:53 Calcium 9.3 mg/dL (8.5-10.3) 08/30/21 04:42 Phosphorus 3.4 mg/dL (2.5-4.6) 08/29/21 04:43 Magnesium 2.4 mg/dL (1.7-2.8) 08/30/21 04:42 Total Bilirubin 0.6 mg/dL (0.2-1.0) 08/12/21 08:40 AST 14 IU/L (10-42) 08/12/21 08:40 ALT 15 IU/L (10-60) 08/12/21 08:40 Alkaline Phosphatase 119 IU/L (42-121) 08/12/21 08:40 Troponin I High Sens 27.4 ng/L (2.3-19.7) H* 08/12/21 11:22 B-Natriuretic Peptide 161 pg/mL (5-100) H 08/12/21 08:40 Total Protein 7.2 g/dL (6.7-8.2) 08/12/21 08:40 Albumin 3.2 g/dL (3.2-5.5) 08/12/21 08:40 Globulin 4.0 g/dL (2.1-4.2) 08/12/21 08:40 Albumin/Globulin Ratio 0.8 (1.0-2.2) L 08/12/21 08:40 Lipase 30 U/L (22-51) 08/12/21 08:40 Nasal Adenovirus (PCR) NOT DETECTED 08/12/21 08:40 Nasal B. parapertussis DNA (PCR) NOT DETECTED 08/12/21 08:40 Nasal Coronavir 229E PCR NOT DETECTED 08/12/21 08:40 Nasal Coronavir HKU1 PCR NOT DETECTED 08/12/21 08:40 Nasal Coronavir NL63 PCR NOT DETECTED 08/12/21 08:40 Nasal Coronavir OC43 PCR NOT DETECTED 08/12/21 08:40 Nasal Enterovir/Rhinovir PCR NOT DETECTED 08/12/21 08:40 Nasal Influenza B PCR NOT DETECTED 08/12/21 08:40 Nasal Influenza A PCR NOT DETECTED 08/12/21 08:40 Nasal Parainfluen 1 PCR NOT DETECTED 08/12/21 08:40 Nasal Parainfluen 2 PCR NOT DETECTED 08/12/21 08:40 Nasal Parainfluen 3 PCR NOT DETECTED 08/12/21 08:40 Nasal Parainfluen 4 PCR NOT DETECTED 08/12/21 08:40 Nasal RSV (PCR) NOT DETECTED 08/12/21 08:40 Nasal Screen MRSA (PCR) NEGATIVE (NEGATIVE) 08/12/21 14:00 Nasal B.pertussis DNA PCR NOT DETECTED 08/12/21 08:40 Nasal C.pneumoniae (PCR) NOT DETECTED 08/12/21 08:40 Armando Human Metapneumo PCR NOT DETECTED 08/12/21 08:40 Nasal M.pneumoniae (PCR) NOT DETECTED 08/12/21 08:40 Nasal SARS-CoV-2 (PCR) NOT DETECTED 08/12/21 08:40 - Procedures Procedures: Procedures ENDOSC POLYPECTOMY OF LG INTEST (02/27/14)
[2021-08-30 13:55] LABS: CALCIUM 9.2 mg/dL (8.5-10.3); CREATININE 0.9 mg/dL (0.6-1.2); POTASSIUM 4.8 mmol/L (3.5-5.0)
[2021-08-30 14:05] LABS: ABG BASE EXCESS 31.5 mmol/L (-2.0-3.0); ABG OXYGEN SATURATION 99 % (94-98); ABG PH 7.29 (7.35-7.45); ABG PO2 139 mmHg (80-100)
[2021-08-30 14:06] LABS: ALLEN TEST POSITIVE
[2021-08-30 14:11] LABS: ABG PCO2 139 mmHg (34-45)
[2021-08-30 14:12] LABS: ABG TCO2 69.3 MMOL/L (21.0-29.0)
[2021-08-30] MEDS: SERTRALINE 50 MG TABLET PO SCH (14:28)
[2021-08-30] MEDS: TAMSULOSIN 0.4 MG CAPSULE PO SCH (14:28)
[2021-08-30] MEDS: CHOLECALCIFEROL 25 MCG TABLET PO SCH (14:28)
[2021-08-30 16:19] LABS: ABG HCO3 57.8 mmol/L (22.0-26.0); ABG PH 7.37 (7.35-7.45); ABG PO2 81 mmHg (80-100)
[2021-08-30 16:20] LABS: ABG BASE EXCESS 27.2 mmol/L (-2.0-3.0); ABG OXYGEN SATURATION 96 % (94-98); ALLEN TEST POSITIVE
[2021-08-30 16:21] LABS: ABG RESPIRATORY RATE 30 b/min
[2021-08-30 16:23] LABS: ABG PCO2 102 mmHg (34-45); ABG TCO2 60.9 MMOL/L (21.0-29.0)
[2021-08-30] MEDS: SODIUM CHLORIDE FLUSH 0.9% 10 ML SYRINGE IVP PRN (18:36)
[2021-08-30] MEDS: ATORVASTATIN 40 MG TABLET PO SCH (20:57)
[2021-08-31] MEDS: MIN OIL/DIMETHICON/COCONUT OIL 92 GM TUBE TOP PRN ×2 (00:07→10:26)
[2021-08-31] MEDS: SODIUM CHLORIDE FLUSH 0.9% 10 ML SYRINGE IVP PRN ×2 (00:07→10:38)
[2021-08-31] MEDS ORDERED: LORazepam 1 MG TABLET PO STA (02:11)
[2021-08-31] MEDS: ACETAMINOPHEN 325 MG TABLET PO PRN (02:36)
[2021-08-31 04:57] LABS: BASOPHILS % (AUTO) 0.4 %; EOSINOPHILS # (AUTO) 0.1 10^3/uL (0.0-0.7); HCT - HEMATOCRIT 37.3 % (42.0-52.0); HGB - HEMOGLOBIN 9.8 g/dL (14.0-18.0); LYMPHOCYTES # (AUTO) 1.4 10^3/uL (1.5-3.5); LYMPHOCYTES % (AUTO) 20.1 %; MEAN CORPUSCULAR HEMOGLOBIN 23.4 pg (27.0-31.0); MEAN CORPUSCULAR HGB CONC 26.3 g/dL (32.0-36.0); MEAN CORPUSCULAR VOLUME 89.2 fL (80.0-94.0); MEAN PLATELET VOLUME 10.2 fL (7.4-11.4); MONOCYTES # (AUTO) 0.5 10^3/uL (0.0-1.0); MONOCYTES % (AUTO) 7.1 %; NEUTROPHILS # (AUTO) 4.8 10^3/uL (1.5-6.6); PLT - PLATELET COUNT 257 10^3/uL (130-450); RED BLOOD COUNT 4.18 10^6/uL (4.70-6.10); RED CELL DISTRIBUTION WIDTH 17.2 % (12.0-15.0); WHITE BLOOD COUNT 6.9 x10^3/uL (4.8-10.8)
[2021-08-31 05:03] LABS: CALCIUM 8.7 mg/dL (8.5-10.3); CREATININE 0.9 mg/dL (0.6-1.2); POTASSIUM 4.5 mmol/L (3.5-5.0)
[2021-08-31] MEDS: INSULIN GLARGINE 300 UNIT/3 ML PEN SUBQ SCH ×2 (06:13→17:54)
[2021-08-31 06:34] LABS: ABG BASE EXCESS 23.4 mmol/L (-2.0-3.0); ABG HCO3 50.8 mmol/L (22.0-26.0); ABG PH 7.47 (7.35-7.45); ABG PO2 56 mmHg (80-100)
[2021-08-31 06:35] LABS: ABG OXYGEN SATURATION 91 % (94-98); ALLEN TEST POSITIVE
[2021-08-31 06:36] LABS: ABG PCO2 71 mmHg (34-45)
[2021-08-31] MEDS: INSULIN ASPART 300 UNIT/3 ML PEN SUBQ SCH ×7 (10:17→21:21)
[2021-08-31] MEDS: polyethylene glycoL 3350 17 GM PACKET PO SCH (10:25)
[2021-08-31] MEDS: ENOXAPARIN 40 MG/0.4 ML SYRINGE SUBQ SCH ×2 (10:26→21:22)
[2021-08-31] MEDS: NYSTATIN POWDER 15 GM TOP SCH ×2 (10:28→21:22)
[2021-08-31] MEDS: DOCUSATE SODIUM 250 MG CAPSULE PO SCH (10:30)
[2021-08-31] MEDS: SENNA 8.6 MG TABLET PO SCH (10:31)
[2021-08-31] MEDS: LOSARTAN 50 MG TABLET PO SCH (10:31)
[2021-08-31] MEDS: FUROSEMIDE 40 MG TABLET PO SCH (10:31)
[2021-08-31] MEDS: TAMSULOSIN 0.4 MG CAPSULE PO SCH (10:32)
[2021-08-31] MEDS: SERTRALINE 50 MG TABLET PO SCH (10:32)
[2021-08-31] MEDS: CHOLECALCIFEROL 25 MCG TABLET PO SCH (10:32)
[2021-08-31 15:02] LABS: MAGNESIUM 2.4 mg/dL (1.7-2.8); PHOSPHORUS 1.7 mg/dL (2.5-4.6)
[2021-08-31 15:22] LABS: CALCIUM 8.7 mg/dL (8.5-10.3); POTASSIUM 4.4 mmol/L (3.5-5.0)
--- NOTE | 2021-08-31 16:39 | PROVIDER PROGRESS NOTE ---
Assessment/Plan - Problem List (1) Confusion Assessment/Plan: This was related to severe CO2 retention (on ABG yesterday, his PCO2 was 102). He required transfer to the ICU and use of BiPAP. His own CPAP machine does not have excessive adequate pressure supports during inspiration and expiration despite bleeding and oxygen and he retained CO2 after using 4 days of his own machine. As starting CPAP yesterday afternoon and then all night his mentation has cleared and his PCO2 is 48. Will attempt to have this patient transferred for pulmonary/critical care and/or obtain a trilogy machine ([facility] (2) Acute on chronic respiratory failure with hypoxia and hypercapnia Assessment/Plan: ABG yesterday, his PCO2 was 102. He required transfer to the ICU and use of BiPAP. His own CPAP machine does not have excessive adequate pressure supports during inspiration and expiration despite bleeding and oxygen and he retained CO2 after using 4 days of his own machine. As starting CPAP yesterday afternoon and then all night his mentation has cleared and his PCO2 is 48. Will attempt to have this patient transferred for pulmonary/critical care and/or obtain a trilogy machine (which [facility] because of [facility]). He also requires 4 L of oxygen supplemental during the day if he has not on some type of respiratory pressure support. We stopped iv Lasix and po Lasix because it may have been adding catarino high CO2 by causing contraction alkalosis. (3) CO2 narcosis Assessment/Plan: Serum CO2 is chronically elevated. Patient is not alert, and is confused yesterday. Continue BiPap continuously since mental status deteriorated on his own CPAP machine. (4) Anasarca Assessment/Plan: Patient continues to have alot of pitting pedal edema that extends up to thighs but is less tense since on iv Lasix for the last 2 days. He denies increased work of breathing. His anasarca is most likely due to moderate to severe right ventricle enlargement and mild pulmonary hypertension with PAPS of 38 found during 01/13/2021 Echocardiogram. Follow I's and O's Follow electrolytes, including occasional serum Mg Will resume Lasix, now that pCO2 has returned to his baseline (5) Obesity hypoventilation syndrome Assessment/Plan: Patient has history of obesity hypoventilation syndrome and obstructive sleep apnea. At baseline he is on home O2 at 4L/min. He was also instructed to be on BiPAP nightly, which he was non-compliant with prior to hospitalization. Continue BiPAP in ICU, and will no longer use the home CPAP device with O2 bled in Will transition back to daytime O2 per n.c. at 4L/min, when clinically appropriate, as per baseline. Continue with PT to increase activity tolerance. PT on hold yesterday and today due to yesterday's confusion. (6) YONATAN on CPAP Assessment/Plan: Patient has history of YONATAN with CPAP at night, which he was non-compliant with prior to hospitalization. Continue BiPAP He needs a Trilogy machine to manage his ventilation and his supplemental oxygen needs, before he can go to a SNF. Will try to transfer to higher level of care with Pulmonary/Critical Care, at a NH, or any [facility]. (7) Mild aortic stenosis Assessment/Plan: He has a Grade 3/6 holosystolic murmur at right sternal border. 2D echocardiogram done January 13, 2021 showed mild aortic stenosis with mean gradient 25mmHg. Denies dizziness, syncope, or exertional angina. Continue to monitor hemodynamic status. (8) Chronic venous stasis dermatitis of both lower extremities Assessment/Plan: Bilateral pedal edema 4+ that extends up to thighs. Scaly plaques and hyperpigmentation to bilateral lower extremities are unchanged and consistent with chronic venous stasis. Keep lower extremity wrapped with Jon wrap compressions and elevate as tolerated. (9) Controlled type 2 diabetes mellitus without complication, with long-term current use of insulin Assessment/Plan: History of type 2 Diabetes Mellitus. Admission A1C 6.7. Controlled as outpatient with Metformin 1000mg BID, Aspart Insulin 4 units TID with meals, Glargine 30 units BID, and Empagliflozin 12.5 daily. Bedside glucose is ranging 150-200's On high sliding scale Aspart Insulin in addition to increased to 9 units of meal coverage. His Lantus was also increased to 30 units subcu twice daily. Continue Accu-Checks before meals and bedtime, ss coverage, tid Insulin and Lantus bid (10) Self neglect Assessment/Plan: Patient is agreeable to finding an alternative living situation due to limited ability to care for himself. He would like to be transferred to the NH but at tempts have been unsuccessful due to bed availability. He is also agreeable to transferring to a NH approved facility. older worker specialist is continuing to assist in disposition/placement and working to place patient at a NH -approved facility. Continue with physical therapy to increase strength and stamina. - Current Meds Current Meds: Current Medications Generic Name Dose Route Start Last Admin Trade Name Freq PRN Reason Stop Dose Admin Acetaminophen 650 mg 08/12/21 10:28 08/31/21 02:36 Acetaminophen 325 Mg Tablet PO 650 mg Q4HR PRN Administration Pain 1 to 4 Atorvastatin Calcium 80 mg 08/17/21 21:00 08/30/21 20:57 Atorvastatin 40 Mg Tablet PO 80 mg QPM JAYNA Administration Cholecalciferol 50 mcg 08/25/21 13:00 08/31/21 10:32 Cholecalciferol 25 Mcg Tablet PO 50 mcg DAILY JAYNA Administration Docusate Sodium 250 - 500 mg 08/23/21 09:00 08/31/21 10:30 Docusate Sodium 250 Mg Capsule PO 500 mg DAILY JAYNA Administration Enoxaparin Sodium 40 mg 08/13/21 09:00 08/31/21 10:26 Enoxaparin 40 Mg/0.4 Ml Syringe SUBQ 40 mg BID JAYNA Administration Furosemide 40 mg 08/30/21 09:00 08/31/21 10:31 Furosemide 40 Mg Tablet PO 40 mg DAILY JAYNA Administration Insulin Aspart 3 - 11 unit 08/23/21 12:45 08/31/21 12:13 Insulin Aspart 300 Unit/3 Ml Pen SUBQ 3 unit 0800,1200,1700,2100 JAYNA Administration Protocol Insulin Aspart 9 unit 08/27/21 17:00 08/31/21 12:14 Insulin Aspart 300 Unit/3 Ml Pen SUBQ 9 unit TIDWM JAYNA Administration Insulin Glargine 30 unit 08/29/21 18:00 08/31/21 06:13 Insulin Glargine 300 Unit/3 Ml Pen SUBQ 30 unit 0600,1800 JAYNA Administration Losartan Potassium 100 mg 08/18/21 09:00 08/31/21 10:31 Losartan 50 Mg Tablet PO 100 mg DAILY JAYNA Administration Mineral Oil 1 applic 08/17/21 09:49 08/31/21 10:26 Min Oil/Dimethicon/Coconut Oil 92 Gm Tube TOP 1 applic PRN PRN Administration Skin Care Nystatin 1 applic 08/16/21 21:00 08/31/21 10:28 Nystatin Powder 15 Gm TOP Not Given BID JAYNA Oxycodone HCl 5 mg 08/12/21 10:28 08/25/21 05:25 Oxycodone 5 Mg Tablet PO 5 mg Q4HR PRN Administration Pain 5 to 7 Polyethylene Glycol 17 gm 08/16/21 17:04 08/31/21 10:25 Polyethylene Glycol 3350 17 Gm Packet PO 17 gm DAILY JAYNA Administration Senna 8.6 - 17.2 mg 08/14/21 09:00 08/31/21 10:31 Senna 8.6 Mg Tablet PO 17.2 mg DAILY JAYNA Administration Sertraline HCl 200 mg 08/13/21 21:00 08/31/21 10:32 Sertraline 50 Mg Tablet PO 200 mg DAILY JAYNA Administration Sodium Chloride 10 ml 08/12/21 10:28 08/31/21 10:38 Sodium Chloride Flush 0.9% 10 Ml Syringe IVP 20 ml PRN PRN Administration NEEDED PER PROVIDER ORDERS Tamsulosin HCl 0.4 mg 08/13/21 09:00 08/31/21 10:32 Tamsulosin 0.4 Mg Capsule PO 0.4 mg DAILY JAYNA Administration - Lab Result Fish Bone Diagrams: 08/31/21 04:46 08/31/21 15:05 - Additional Planning My Orders: My Active Orders 08/31/21 10:46 Initiate ICU Electrolyte Prot. [RC] QSHIFT Subjective - Subjective Patient Reports: Feeling Better Nursing Reports: Other (Is not confused, wearing CPAOP, taking breaks to eat.) Objective Vital Signs: Vital Signs - 24 hr 08/30/21 08/30/21 08/30/21 17:00 17:25 19:00 Temperature Heart Rate 72 Heart Rate [ 52 L 67 Monitoring electrodes] Respiratory 20 20 Rate Blood Pressure 108/48 L 117/52 L [Left Brachial artery] O2 Saturation 100 100 08/30/21 08/30/21 08/30/21 19:20 20:00 21:00 Temperature 37.8 C Heart Rate 69 Heart Rate [ 64 70 Monitoring electrodes] Respiratory 20 22 Rate Blood Pressure 131/70 H 115/46 L [Left Brachial artery] O2 Saturation 98 98 08/30/21 08/30/21 08/30/21 21:50 22:00 23:00 Temperature Heart Rate 64 Heart Rate [ 68 70 Monitoring electrodes] Respiratory 17 20 Rate Blood Pressure 116/96 H 127/55 L [Left Brachial artery] O2 Saturation 100 97 08/31/21 08/31/21 08/31/21 00:00 00:20 01:00 Temperature 37.8 C Heart Rate 70 Heart Rate [ 69 68 Monitoring electrodes] Respiratory 15 20 Rate Blood Pressure 115/93 H 115/63 [Left Brachial artery] O2 Saturation 99 99 08/31/21 08/31/21 08/31/21 02:00 02:40 03:00 Temperature Heart Rate 73 Heart Rate [ 72 62 Monitoring electrodes] Respiratory 17 22 Rate Blood Pressure 97/58 L 111/76 [Left Brachial artery] O2 Saturation 99 98 08/31/21 08/31/21 08/31/21 04:00 05:00 05:20 Temperature Heart Rate 61 Heart Rate [ 56 L 49 L Monitoring electrodes] Respiratory 25 H 25 H Rate Blood Pressure 112/49 L 126/58 L [Left Brachial artery] O2 Saturation 99 100 08/31/21 08/31/21 08/31/21 06:00 07:00 07:20 Temperature Heart Rate 55 L Heart Rate [ 62 56 L Monitoring electrodes] Respiratory 18 25 H Rate Blood Pressure 150/69 H 131/55 H [Left Brachial artery] O2 Saturation 100 98 08/31/21 08/31/21 08/31/21 08:00 09:00 10:00 Temperature Heart Rate Heart Rate [ 56 L 60 60 Monitoring electrodes] Respiratory 25 H 17 19 Rate Blood Pressure 128/59 L 167/86 H 138/58 H [Left Brachial artery] O2 Saturation 100 97 95 08/31/21 08/31/21 08/31/21 11:00 12:00 13:00 Temperature 37.0 C Heart Rate 60 Heart Rate [ 71 56 L 65 Monitoring electrodes] Respiratory 24 13 25 H Rate Blood Pressure 155/68 H 124/48 L 138/61 H [Left Brachial artery] O2 Saturation 94 93 08/31/21 08/31/21 08/31/21 14:00 15:00 16:00 Temperature Heart Rate 68 Heart Rate [ 54 L 56 L 53 L Monitoring electrodes] Respiratory 25 H 25 H 25 H Rate Blood Pressure 119/73 136/54 H 129/66 [Left Brachial artery] O2 Saturation 90 L 96 95 Oxygen O2 Source BIPAP Oxygen Flow Rate 4 I&O (Last 24 Hrs): Intake and Output Totals x24h 08/29/21 08/30/21 08/31/21 23:59 23:59 23:59 Intake Total 2150 650 736 Output Total 1200 225 650 Balance 950 425 86 General: Alert, Oriented x3 HEENT: Mucous membr. moist/pink Neck: Other (Obese) Neuro: Alert, Non Focal Cardiovascular: Regular rate Respiratory: No respiratory distress (on CPAP) Abdomen: Other (Obese with pannus) Extremities: Other (4+ edema to skin of upper abdomen) - Results Results: Laboratory Results WBC 6.9 x10^3/uL (4.8-10.8) 08/31/21 04:46 RBC 4.18 10^6/uL (4.70-6.10) L 08/31/21 04:46 Hgb 9.8 g/dL (14.0-18.0) L 08/31/21 04:46 Hct 37.3 % (42.0-52.0) L 08/31/21 04:46 MCV 89.2 fL (80.0-94.0) 08/31/21 04:46 MCH 23.4 pg (27.0-31.0) L 08/31/21 04:46 MCHC 26.3 g/dL (32.0-36.0) L 08/31/21 04:46 RDW 17.2 % (12.0-15.0) H 08/31/21 04:46 Plt Count 257 10^3/uL (130-450) 08/31/21 04:46 MPV 10.2 fL (7.4-11.4) 08/31/21 04:46 Neut # (Auto) 4.8 10^3/uL (1.5-6.6) 08/31/21 04:46 Lymph # (Auto) 1.4 10^3/uL (1.5-3.5) L 08/31/21 04:46 [place] # (Auto) 0.5 10^3/uL (0.0-1.0) 08/31/21 04:46 Eos # (Auto) 0.1 10^3/uL (0.0-0.7) 08/31/21 04:46 Baso # (Auto) 0.0 10^3/uL (0.0-0.1) 08/31/21 04:46 Absolute Nucleated RBC 0.00 x10^3/uL 08/31/21 04:46 Nucleated RBC % 0.0 /100WBC 08/31/21 04:46 Manual Slide Review Indicated 08/30/21 04:42 WBC Morphology NORMAL APPEARANCE (NORMAL) 08/30/21 04:42 Platelet Estimate NORMAL (130-450,000) (NORMAL) 08/30/21 04:42 Platelet Morphology NORMAL APPEARANCE (NORMAL) 08/30/21 04:42 RBC Morph Micro Appear 1+ HYPOCHROMASIA (NORMAL) 1+ STOMATOCYTES (NORMAL) 08/30/21 04:42 RBC Morph Micro Appear 1+ HYPOCHROMASIA (NORMAL) 1+ STOMATOCYTES (NORMAL) 08/30/21 04:42 Bld Gas Analysis Time 0634 08/31/21 06:26 Sample Site LEFT RADIAL 08/30/21 16:08 ABG pH 7.47 (7.35-7.45) H 08/31/21 06:26 ABG pCO2 71 mmHg (34-45) H* 08/31/21 06:26 ABG pO2 56 mmHg (80-100) L 08/31/21 06:26 ABG HCO3 50.8 mmol/L (22.0-26.0) H 08/31/21 06:26 ABG Total CO2 53.0 MMOL/L (21.0-29.0) H* 08/31/21 06:26 ABG O2 Saturation 91 % (94-98) L 08/31/21 06:26 ABG Base Excess 23.4 mmol/L (-2.0-3.0) H 08/31/21 06:26 Reynaldo Test POSITIVE 08/31/21 06:26 VBG pH 7.170 (7.31-7.41) L 08/12/21 11:22 VBG pCO2 102.1 mmHg (41-51) H 08/12/21 11:22 VBG pO2 85.8 mmHg (25-47) H 08/12/21 11:22 VBG HCO3 36.4 mmol/L (23-28) H 08/12/21 11:22 VBG Total CO2 39.5 mmol/L (24-29) H 08/12/21 11:22 VBG O2 Saturation 95.4 % (60-80) H 08/12/21 11:22 VBG Base Excess 3.6 mmol/L (-2 - +2) H 08/12/21 11:22 Respiration Rate 30 b/min 08/30/21 16:08 O2 Delivery Device BiPAP 08/31/21 06:26 Vent Mode 08/30/21 16:08 FiO2 50.00 08/31/21 06:26 PEEP 8 cmH2O 08/30/21 11:40 Pressure Support Vent 10 cmH2O 08/31/21 06:26 EPAP 10 cmH2O 08/31/21 06:26 IPAP 20 cmH2O 08/31/21 06:26 Sodium 143 mmol/L (135-145) 08/31/21 15:05 Potassium 4.4 mmol/L (3.5-5.0) 08/31/21 15:05 Chloride 86 mmol/L (101-111) L 08/31/21 15:05 Carbon Dioxide 48 mmol/L (21-32) H* 08/31/21 15:05 Anion Gap 9.0 (6-13) 08/31/21 15:05 BUN 40 mg/dL (6-20) H 08/31/21 15:05 Creatinine 1.0 mg/dL (0.6-1.2) 08/31/21 15:05 Estimated GFR (MDRD) 74 (>89) L 08/31/21 15:05 Glucose 204 mg/dL (70-100) H 08/31/21 15:05 POC Whole Bld Glucose 159 mg/dL (70 - 100) H 08/31/21 11:34 Estimat Average Glucose 146 mg/dL (70-100) H 08/13/21 14:53 Hemoglobin A1c % 6.7 % (4.27-6.07) H 08/13/21 14:53 Calcium 8.7 mg/dL (8.5-10.3) 08/31/21 15:05 Phosphorus 1.7 mg/dL (2.5-4.6) L 08/31/21 04:46 Magnesium 2.4 mg/dL (1.7-2.8) 08/31/21 04:46 Total Bilirubin 0.6 mg/dL (0.2-1.0) 08/12/21 08:40 AST 14 IU/L (10-42) 08/12/21 08:40 ALT 15 IU/L (10-60) 08/12/21 08:40 Alkaline Phosphatase 119 IU/L (42-121) 08/12/21 08:40 Troponin I High Sens 27.4 ng/L (2.3-19.7) H* 08/12/21 11:22 B-Natriuretic Peptide 161 pg/mL (5-100) H 08/12/21 08:40 Total Protein 7.2 g/dL (6.7-8.2) 08/12/21 08:40 Albumin 3.2 g/dL (3.2-5.5) 08/12/21 08:40 Globulin 4.0 g/dL (2.1-4.2) 08/12/21 08:40 Albumin/Globulin Ratio 0.8 (1.0-2.2) L 08/12/21 08:40 Lipase 30 U/L (22-51) 08/12/21 08:40 Nasal Adenovirus (PCR) NOT DETECTED 08/12/21 08:40 Nasal B. parapertussis DNA (PCR) NOT DETECTED 08/12/21 08:40 Nasal Coronavir 229E PCR NOT DETECTED 08/12/21 08:40 Nasal Coronavir HKU1 PCR NOT DETECTED 08/12/21 08:40 Nasal Coronavir NL63 PCR NOT DETECTED 08/12/21 08:40 Nasal Coronavir OC43 PCR NOT DETECTED 08/12/21 08:40 Nasal Enterovir/Rhinovir PCR NOT DETECTED 08/12/21 08:40 Nasal Influenza B PCR NOT DETECTED 08/12/21 08:40 Nasal Influenza A PCR NOT DETECTED 08/12/21 08:40 Nasal Parainfluen 1 PCR NOT DETECTED 08/12/21 08:40 Nasal Parainfluen 2 PCR NOT DETECTED 08/12/21 08:40 Nasal Parainfluen 3 PCR NOT DETECTED 08/12/21 08:40 Nasal Parainfluen 4 PCR NOT DETECTED 08/12/21 08:40 Nasal RSV (PCR) NOT DETECTED 08/12/21 08:40 Nasal Screen MRSA (PCR) NEGATIVE (NEGATIVE) 08/12/21 14:00 Nasal B.pertussis DNA PCR NOT DETECTED 08/12/21 08:40 Nasal C.pneumoniae (PCR) NOT DETECTED 08/12/21 08:40 Armando Human Metapneumo PCR NOT DETECTED 08/12/21 08:40 Nasal M.pneumoniae (PCR) NOT DETECTED 08/12/21 08:40 Nasal SARS-CoV-2 (PCR) NOT DETECTED 08/12/21 08:40 - Procedures Procedures: Procedures ENDOSC POLYPECTOMY OF LG INTEST (02/27/14)
[2021-08-31] MEDS: ATORVASTATIN 40 MG TABLET PO SCH (21:21)
[2021-09-01 05:14] LABS: BASOPHILS % (AUTO) 0.3 %; EOSINOPHILS # (AUTO) 0.2 10^3/uL (0.0-0.7); EOSINOPHILS % (AUTO) 3.6 %; HCT - HEMATOCRIT 38.3 % (42.0-52.0); HGB - HEMOGLOBIN 10.3 g/dL (14.0-18.0); LYMPHOCYTES # (AUTO) 1.5 10^3/uL (1.5-3.5); LYMPHOCYTES % (AUTO) 26.3 %; MEAN CORPUSCULAR HEMOGLOBIN 23.5 pg (27.0-31.0); MEAN CORPUSCULAR HGB CONC 26.9 g/dL (32.0-36.0); MEAN CORPUSCULAR VOLUME 87.2 fL (80.0-94.0); MEAN PLATELET VOLUME 10.6 fL (7.4-11.4); MONOCYTES # (AUTO) 0.4 10^3/uL (0.0-1.0); MONOCYTES % (AUTO) 6.9 %; NEUTROPHILS # (AUTO) 3.6 10^3/uL (1.5-6.6); NEUTROPHILS % (AUTO) 62.6 %; PLT - PLATELET COUNT 247 10^3/uL (130-450); RED BLOOD COUNT 4.39 10^6/uL (4.70-6.10); RED CELL DISTRIBUTION WIDTH 17.5 % (12.0-15.0); WHITE BLOOD COUNT 5.8 x10^3/uL (4.8-10.8)
[2021-09-01 05:18] LABS: CREATININE 0.8 mg/dL (0.6-1.2); POTASSIUM 4.1 mmol/L (3.5-5.0)
[2021-09-01] MEDS: INSULIN GLARGINE 300 UNIT/3 ML PEN SUBQ SCH ×2 (06:05→17:00)
[2021-09-01] MEDS: FUROSEMIDE 40 MG TABLET PO SCH ×2 (06:06→13:54)
[2021-09-01 07:02] LABS: MAGNESIUM 2.3 mg/dL (1.7-2.8); PHOSPHORUS 3.5 mg/dL (2.5-4.6)
[2021-09-01] MEDS: INSULIN ASPART 300 UNIT/3 ML PEN SUBQ SCH ×7 (07:48→20:36)
[2021-09-01] MEDS: CHOLECALCIFEROL 25 MCG TABLET PO SCH (08:14)
[2021-09-01] MEDS: LOSARTAN 50 MG TABLET PO SCH (08:15)
[2021-09-01] MEDS: NYSTATIN POWDER 15 GM TOP SCH ×2 (08:15→20:41)
[2021-09-01] MEDS: SERTRALINE 50 MG TABLET PO SCH (08:16)
[2021-09-01] MEDS: TAMSULOSIN 0.4 MG CAPSULE PO SCH (08:16)
[2021-09-01] MEDS: ENOXAPARIN 40 MG/0.4 ML SYRINGE SUBQ SCH ×2 (08:19→20:40)
[2021-09-01] MEDS: polyethylene glycoL 3350 17 GM PACKET PO SCH (08:21)
[2021-09-01] MEDS: DOCUSATE SODIUM 250 MG CAPSULE PO SCH (08:21)
[2021-09-01] MEDS: SENNA 8.6 MG TABLET PO SCH (08:22)
--- NOTE | 2021-09-01 13:10 | PROVIDER PROGRESS NOTE ---
Assessment/Plan - Problem List (1) Acute on chronic respiratory failure with hypoxia and hypercapnia Assessment/Plan: ABG 2 days ago showed PCO2 of 102 and he was awake but confused. He required transfer back to the ICU and restarting BiPAP. His own CPAP machine does not have adequate pressure support during inspiration and expiration, despite bleeding in oxygen, and he retained CO2 after using 4 days of his own machine. Will attempt to have this patient transferred for pulmonary/critical care manage ment and/or obtain a Trilogy machine ([facility] He also requires 4 L of oxygen supplemental via nasal cannula during the day (when he usually is off the BIPAP). Will start to increase his breaks off BIPAP and allow longer time on nasal cannula (2) CO2 narcosis Assessment/Plan: Serum CO2 is chronically elevated. Patient was not alert, and is confused 2 days ago. Continue BiPap continuously since mental status deteriorated on his own CPAP machine, with longer and longer breaks on n.c. when clinically possible (3) Anasarca Assessment/Plan: Patient continues to have alot of pitting pedal edema that extends up to thighs and scrotum, but is less tense after iv Lasix was used. His anasarca is most likely due to moderate to severe right ventricle enlargement and some pulmonary hypertension with PAPS of 38 found during 01/13/2021 Echocardiogram. Follow I's and O's Follow electrolytes, including occasional serum Mg Will resume Lasix, now that pCO2 has returned to his baseline (4) Obesity hypoventilation syndrome Assessment/Plan: Patient has history of obesity hypoventilation syndrome and obstructive sleep apnea. At baseline he is on home O2 at 4L/min. He was also instructed to be on BiPAP nightly, which he was non-compliant with prior to hospitalization. Continue BiPAP in ICU, and will no longer use the home CPAP device with O2 bled in Will transition back to daytime O2 per n.c. at 4L/min, when clinically appropriate, as per baseline. Will order resumption of PT to increase activity tolerance. PT on hold 2 days due to confusion. (5) YONATAN on CPAP Assessment/Plan: Patient has history of YONATAN with CPAP at night, which he was non-compliant with prior to hospitalization. Continue BiPAP He needs a Trilogy machine to manage his ventilation and his supplemental oxygen needs, before he can go to a SNF. Alternatively, we will try to transfer him to higher level of care with Pulmonary/Critical Care, possibly at a [place], or [facility]. (6) Mild aortic stenosis Assessment/Plan: He has a Grade 3/6 holosystolic murmur at right sternal border. 2D echocardiogram done January 13, 2021 showed mild aortic stenosis with mean gradient 25mmHg. Denies dizziness, syncope, or exertional angina. Continue to monitor hemodynamic status. (7) Chronic venous stasis dermatitis of both lower extremities Assessment/Plan: Bilateral pedal edema 4+ that extends up his thighs. Scaly plaques and hyperpigmentation to bilateral lower extremities are unchanged and consistent with chronic venous stasis. Keep lower extremity wrapped with Jon wrap compressions and elevate as patricio erated. (8) Controlled type 2 diabetes mellitus without complication, with long-term current use of insulin Assessment/Plan: History of type 2 Diabetes Mellitus. Admission A1C 6.7. Controlled as outpatient with Metformin 1000mg BID, Aspart Insulin 4 units TID with meals, Glargine 30 units BID, and Empagliflozin 12.5 daily. Bedside glucose is ranging 150-200's On high sliding scale Aspart Insulin in addition to increased to 9 units of meal coverage. His Lantus was also increased to 30 units subcu twice daily. Continue Accu-Checks before meals and bedtime, ss coverage, tid Insulin and Lantus bid (9) Self neglect Assessment/Plan: Patient is agreeable to finding an alternative living situation due to limited ability to care for himself. He would like to be transferred to the [place] but attempts have been unsuccessful due to bed availability. He is also agreeable to transferring to a [place] approved facility. convention worker is continuing to assist in disposition/placement and working to place patient at a [place] -approved facility. Continue with physical therapy to increase strength and stamina. (10) Confusion Assessment/Plan: This was related to severe CO2 retention and has resolved - Current Meds Current Meds: Current Medications Generic Name Dose Route Start Last Admin Trade Name Freq PRN Reason Stop Dose Admin Acetaminophen 650 mg 08/12/21 10:28 08/31/21 02:36 Acetaminophen 325 Mg Tablet PO 650 mg Q4HR PRN Administration Pain 1 to 4 Atorvastatin Calcium 80 mg 08/17/21 21:00 08/31/21 21:21 Atorvastatin 40 Mg Tablet PO 80 mg QPM JAYNA Administration Cholecalciferol 50 mcg 08/25/21 13:00 09/01/21 08:14 Cholecalciferol 25 Mcg Tablet PO 50 mcg DAILY JAYNA Administration Docusate Sodium 250 - 500 mg 08/23/21 09:00 09/01/21 08:21 Docusate Sodium 250 Mg Capsule PO Not Given DAILY JAYNA Enoxaparin Sodium 40 mg 08/13/21 09:00 09/01/21 08:19 Enoxaparin 40 Mg/0.4 Ml Syringe SUBQ 40 mg BID JAYNA Administration Furosemide 40 mg 09/01/21 06:00 09/01/21 06:06 Furosemide 40 Mg Tablet PO 40 mg BIDDIURETIC JAYNA Administration Insulin Aspart 3 - 11 unit 08/23/21 12:45 09/01/21 12:00 Insulin Aspart 300 Unit/3 Ml Pen SUBQ 3 unit 0800,1200,1700,2100 JAYNA Administration Protocol Insulin Aspart 9 unit 08/27/21 17:00 09/01/21 11:59 Insulin Aspart 300 Unit/3 Ml Pen SUBQ 9 unit TIDWM JAYNA Administration Insulin Glargine 30 unit 08/29/21 18:00 09/01/21 06:05 Insulin Glargine 300 Unit/3 Ml Pen SUBQ 30 unit 0600,1800 JAYNA Administration Losartan Potassium 100 mg 08/18/21 09:00 09/01/21 08:15 Losartan 50 Mg Tablet PO 100 mg DAILY JAYNA Administration Mineral Oil 1 applic 08/17/21 09:49 08/31/21 10:26 Min Oil/Dimethicon/Coconut Oil 92 Gm Tube TOP 1 applic PRN PRN Administration Skin Care Nystatin 1 applic 08/16/21 21:00 09/01/21 08:15 Nystatin Powder 15 Gm TOP 1 applic BID JAYNA Administration Oxycodone HCl 5 mg 08/12/21 10:28 08/25/21 05:25 Oxycodone 5 Mg Tablet PO 5 mg Q4HR PRN Administration Pain 5 to 7 Polyethylene Glycol 17 gm 08/16/21 17:04 09/01/21 08:21 Polyethylene Glycol 3350 17 Gm Packet PO Not Given DAILY JAYNA Senna 8.6 - 17.2 mg 08/14/21 09:00 09/01/21 08:22 Senna 8.6 Mg Tablet PO Not Given DAILY JAYNA Sertraline HCl 200 mg 08/13/21 21:00 09/01/21 08:16 Sertraline 50 Mg Tablet PO 200 mg DAILY JAYNA Administration Sodium Chloride 10 ml 08/12/21 10:28 08/31/21 10:38 Sodium Chloride Flush 0.9% 10 Ml Syringe IVP 20 ml PRN PRN Administration NEEDED PER PROVIDER ORDERS Tamsulosin HCl 0.4 mg 08/13/21 09:00 09/01/21 08:16 Tamsulosin 0.4 Mg Capsule PO 0.4 mg DAILY JAYNA Administration - Lab Result Fish Bone Diagrams: 09/01/21 04:10 09/01/21 04:10 - Additional Planning My Orders: My Active Orders 09/01/21 06:00 Furosemide [Lasix] 40 mg PO BIDDIURETIC 09/02/21 Evaluate and Treat OT [OT] Routine Evaluate and Treat PT [PT] Routine Subjective - Subjective Patient Reports: Other (Asleep, wearing his BIPAP) Nursing Reports: Other (No further confusion) Objective Vital Signs: Vital Signs - 24 hr 08/31/21 08/31/21 08/31/21 14:00 15:00 16:00 Temperature Heart Rate 68 Heart Rate [ 54 L 56 L 53 L Monitoring electrodes] Respiratory 25 H 25 H 25 H Rate Blood Pressure 119/73 136/54 H 129/66 [Left Brachial artery] O2 Saturation 90 L 96 95 08/31/21 08/31/21 08/31/21 16:05 17:00 20:00 Temperature 36.8 C Heart Rate 70 70 Heart Rate [ 67 Monitoring electrodes] Respiratory 14 Rate Blood Pressure 142/65 H [Left Brachial artery] O2 Saturation 91 L 08/31/21 09/01/21 09/01/21 21:00 00:54 02:00 Temperature 36.7 C Heart Rate 70 Heart Rate [ 49 L 51 L Monitoring electrodes] Respiratory 23 24 Rate Blood Pressure 149/71 H 128/54 L [Left Brachial artery] O2 Saturation 99 96 09/01/21 09/01/21 09/01/21 05:00 06:16 07:51 Temperature 36.7 C 36.8 C Heart Rate 70 Heart Rate [ 64 79 Monitoring electrodes] Respiratory 28 H 32 H Rate Blood Pressure 151/70 H 182/68 H [Left Brachial artery] O2 Saturation 94 90 L 09/01/21 09/01/21 08:37 12:08 Temperature 36.8 C Heart Rate 76 Heart Rate [ 60 Monitoring electrodes] Respiratory 21 Rate Blood Pressure 153/69 H [Left Brachial artery] O2 Saturation 95 Oxygen O2 Source Nasal cannula Oxygen Flow Rate 4 I&O (Last 24 Hrs): Intake and Output Totals x24h 08/30/21 08/31/21 09/01/21 23:59 23:59 23:59 Intake Total 650 1986 1010 Output Total 225 1175 2225 Balance 425 811 -1215 General: Other (Asleep) HEENT: Mucous membr. moist/pink, Other (On BIPAP mask) Neck: Supple, Other (Obese) Neuro: Other (Asleep, non-focal when he was awake) Cardiovascular: Regular rate Respiratory: No respiratory distress (On BIPAP mask) Abdomen: Soft (Obese with pannus) Extremities: Other (3+ edema to groin, venous stasis changes of shins) - Results Results: Laboratory Results WBC 5.8 x10^3/uL (4.8-10.8) 09/01/21 04:10 RBC 4.39 10^6/uL (4.70-6.10) L 09/01/21 04:10 Hgb 10.3 g/dL (14.0-18.0) L 09/01/21 04:10 Hct 38.3 % (42.0-52.0) L 09/01/21 04:10 MCV 87.2 fL (80.0-94.0) 09/01/21 04:10 MCH 23.5 pg (27.0-31.0) L 09/01/21 04:10 MCHC 26.9 g/dL (32.0-36.0) L 09/01/21 04:10 RDW 17.5 % (12.0-15.0) H 09/01/21 04:10 Plt Count 247 10^3/uL (130-450) 09/01/21 04:10 MPV 10.6 fL (7.4-11.4) 09/01/21 04:10 Neut # (Auto) 3.6 10^3/uL (1.5-6.6) 09/01/21 04:10 Lymph # (Auto) 1.5 10^3/uL (1.5-3.5) 09/01/21 04:10 Hendricks # (Auto) 0.4 10^3/uL (0.0-1.0) 09/01/21 04:10 Eos # (Auto) 0.2 10^3/uL (0.0-0.7) 09/01/21 04:10 Baso # (Auto) 0.0 10^3/uL (0.0-0.1) 09/01/21 04:10 Absolute Nucleated RBC 0.00 x10^3/uL 09/01/21 04:10 Nucleated RBC % 0.0 /100WBC 09/01/21 04:10 Manual Slide Review Indicated 08/30/21 04:42 WBC Morphology NORMAL APPEARANCE (NORMAL) 08/30/21 04:42 Platelet Estimate NORMAL (130-450,000) (NORMAL) 08/30/21 04:42 Platelet Morphology NORMAL APPEARANCE (NORMAL) 08/30/21 04:42 RBC Morph Micro Appear 1+ HYPOCHROMASIA (NORMAL) 1+ STOMATOCYTES (NORMAL) 08/30/21 04:42 RBC Morph Micro Appear 1+ HYPOCHROMASIA (NORMAL) 1+ STOMATOCYTES (NORMAL) 08/30/21 04:42 Bld Gas Analysis Time 0634 08/31/21 06:26 Sample Site LEFT RADIAL 08/30/21 16:08 ABG pH 7.47 (7.35-7.45) H 08/31/21 06:26 ABG pCO2 71 mmHg (34-45) H* 08/31/21 06:26 ABG pO2 56 mmHg (80-100) L 08/31/21 06:26 ABG HCO3 50.8 mmol/L (22.0-26.0) H 08/31/21 06:26 ABG Total CO2 53.0 MMOL/L (21.0-29.0) H* 08/31/21 06:26 ABG O2 Saturation 91 % (94-98) L 08/31/21 06:26 ABG Base Excess 23.4 mmol/L (-2.0-3.0) H 08/31/21 06:26 Reynaldo Test POSITIVE 08/31/21 06:26 VBG pH 7.170 (7.31-7.41) L 08/12/21 11:22 VBG pCO2 102.1 mmHg (41-51) H 08/12/21 11:22 VBG pO2 85.8 mmHg (25-47) H 08/12/21 11:22 VBG HCO3 36.4 mmol/L (23-28) H 08/12/21 11:22 VBG Total CO2 39.5 mmol/L (24-29) H 08/12/21 11:22 VBG O2 Saturation 95.4 % (60-80) H 08/12/21 11:22 VBG Base Excess 3.6 mmol/L (-2 - +2) H 08/12/21 11:22 Respiration Rate 30 b/min 08/30/21 16:08 O2 Delivery Device BiPAP 08/31/21 06:26 Vent Mode 08/30/21 16:08 FiO2 50.00 08/31/21 06:26 PEEP 8 cmH2O 08/30/21 11:40 Pressure Support Vent 10 cmH2O 08/31/21 06:26 EPAP 10 cmH2O 08/31/21 06:26 IPAP 20 cmH2O 08/31/21 06:26 Sodium 143 mmol/L (135-145) 09/01/21 04:10 Potassium 4.1 mmol/L (3.5-5.0) 09/01/21 04:10 Chloride 87 mmol/L (101-111) L 09/01/21 04:10 Carbon Dioxide 47 mmol/L (21-32) H* 09/01/21 04:10 Anion Gap 9.0 (6-13) 09/01/21 04:10 BUN 36 mg/dL (6-20) H 09/01/21 04:10 Creatinine 0.8 mg/dL (0.6-1.2) 09/01/21 04:10 Estimated GFR (MDRD) 96 (>89) 09/01/21 04:10 Glucose 127 mg/dL (70-100) H 09/01/21 04:10 POC Whole Bld Glucose 149 mg/dL (70 - 100) H 09/01/21 11:07 Estimat Average Glucose 146 mg/dL (70-100) H 08/13/21 14:53 Hemoglobin A1c % 6.7 % (4.27-6.07) H 08/13/21 14:53 Calcium 9.0 mg/dL (8.5-10.3) 09/01/21 04:10 Phosphorus 3.5 mg/dL (2.5-4.6) 09/01/21 04:10 Magnesium 2.3 mg/dL (1.7-2.8) 09/01/21 04:10 Total Bilirubin 0.6 mg/dL (0.2-1.0) 08/12/21 08:40 AST 14 IU/L (10-42) 08/12/21 08:40 ALT 15 IU/L (10-60) 08/12/21 08:40 Alkaline Phosphatase 119 IU/L (42-121) 08/12/21 08:40 Troponin I High Sens 27.4 ng/L (2.3-19.7) H* 08/12/21 11:22 B-Natriuretic Peptide 161 pg/mL (5-100) H 08/12/21 08:40 Total Protein 7.2 g/dL (6.7-8.2) 08/12/21 08:40 Albumin 3.2 g/dL (3.2-5.5) 08/12/21 08:40 Globulin 4.0 g/dL (2.1-4.2) 08/12/21 08:40 Albumin/Globulin Ratio 0.8 (1.0-2.2) L 08/12/21 08:40 Lipase 30 U/L (22-51) 08/12/21 08:40 Nasal Adenovirus (PCR) NOT DETECTED 08/12/21 08:40 Nasal B. parapertussis DNA (PCR) NOT DETECTED 08/12/21 08:40 Nasal Coronavir 229E PCR NOT DETECTED 08/12/21 08:40 Nasal Coronavir HKU1 PCR NOT DETECTED 08/12/21 08:40 Nasal Coronavir NL63 PCR NOT DETECTED 08/12/21 08:40 Nasal Coronavir OC43 PCR NOT DETECTED 08/12/21 08:40 Nasal Enterovir/Rhinovir PCR NOT DETECTED 08/12/21 08:40 Nasal Influenza B PCR NOT DETECTED 08/12/21 08:40 Nasal Influenza A PCR NOT DETECTED 08/12/21 08:40 Nasal Parainfluen 1 PCR NOT DETECTED 08/12/21 08:40 Nasal Parainfluen 2 PCR NOT DETECTED 08/12/21 08:40 Nasal Parainfluen 3 PCR NOT DETECTED 08/12/21 08:40 Nasal Parainfluen 4 PCR NOT DETECTED 08/12/21 08:40 Nasal RSV (PCR) NOT DETECTED 08/12/21 08:40 Nasal Screen MRSA (PCR) NEGATIVE (NEGATIVE) 08/12/21 14:00 Nasal B.pertussis DNA PCR NOT DETECTED 08/12/21 08:40 Nasal C.pneumoniae (PCR) NOT DETECTED 08/12/21 08:40 Armando Human Metapneumo PCR NOT DETECTED 08/12/21 08:40 Nasal M.pneumoniae (PCR) NOT DETECTED 08/12/21 08:40 Nasal SARS-CoV-2 (PCR) NOT DETECTED 08/12/21 08:40 - Procedures Procedures: Procedures ENDOSC POLYPECTOMY OF LG INTEST (02/27/14)
[2021-09-01] MEDS: ATORVASTATIN 40 MG TABLET PO SCH (20:39)
[2021-09-02 05:08] LABS: BASOPHILS % (AUTO) 0.2 %; EOSINOPHILS # (AUTO) 0.2 10^3/uL (0.0-0.7); EOSINOPHILS % (AUTO) 3.3 %; HCT - HEMATOCRIT 39.1 % (42.0-52.0); HGB - HEMOGLOBIN 10.5 g/dL (14.0-18.0); LYMPHOCYTES # (AUTO) 1.4 10^3/uL (1.5-3.5); LYMPHOCYTES % (AUTO) 21.8 %; MEAN CORPUSCULAR HEMOGLOBIN 23.4 pg (27.0-31.0); MEAN CORPUSCULAR HGB CONC 26.9 g/dL (32.0-36.0); MEAN CORPUSCULAR VOLUME 87.3 fL (80.0-94.0); MEAN PLATELET VOLUME 10.6 fL (7.4-11.4); MONOCYTES # (AUTO) 0.4 10^3/uL (0.0-1.0); MONOCYTES % (AUTO) 6.4 %; NEUTROPHILS # (AUTO) 4.4 10^3/uL (1.5-6.6); NEUTROPHILS % (AUTO) 67.8 %; PLT - PLATELET COUNT 253 10^3/uL (130-450); RED BLOOD COUNT 4.48 10^6/uL (4.70-6.10); RED CELL DISTRIBUTION WIDTH 17.8 % (12.0-15.0); WHITE BLOOD COUNT 6.4 x10^3/uL (4.8-10.8)
[2021-09-02 05:10] LABS: SLIDE REVIEW? Indicated
[2021-09-02 05:25] LABS: BUN - BLOOD UREA NITROGEN 30 mg/dL (6-20); CALCIUM 9.1 mg/dL (8.5-10.3); CHLORIDE 87 mmol/L (101-111); CREATININE 0.7 mg/dL (0.6-1.2); GFR - MDRD 112 (>89); GLUCOSE 116 mg/dL (70-100); POTASSIUM 4.1 mmol/L (3.5-5.0); SODIUM 145 mmol/L (135-145)
[2021-09-02 05:29] LABS: CARBON DIOXIDE - CO2 > 45 mmol/L (21-32)
[2021-09-02 05:37] LABS: PLATELET ESTIMATE, MANUAL NORMAL (130-450,000) (NORMAL); PLATELET MORPHOLOGY NORMAL APPEARANCE (NORMAL); WBC MORPHOLOGY (MULTIPLE) NORMAL APPEARANCE (NORMAL)
[2021-09-02 06:08] LABS: MAGNESIUM 2.2 mg/dL (1.7-2.8); PHOSPHORUS 4.1 mg/dL (2.5-4.6)
[2021-09-02] MEDS: INSULIN GLARGINE 300 UNIT/3 ML PEN SUBQ SCH ×2 (06:27→17:56)
[2021-09-02] MEDS: INSULIN ASPART 300 UNIT/3 ML PEN SUBQ SCH ×7 (08:37→20:27)
[2021-09-02] MEDS: CHOLECALCIFEROL 25 MCG TABLET PO SCH (08:38)
[2021-09-02] MEDS: LOSARTAN 50 MG TABLET PO SCH (08:40)
[2021-09-02] MEDS: SERTRALINE 50 MG TABLET PO SCH (08:40)
[2021-09-02] MEDS: FUROSEMIDE 40 MG/4 ML VIAL IVP SCH (08:40)
[2021-09-02] MEDS: TAMSULOSIN 0.4 MG CAPSULE PO SCH (08:41)
[2021-09-02] MEDS: DOCUSATE SODIUM 250 MG CAPSULE PO SCH (08:43)
[2021-09-02] MEDS: SENNA 8.6 MG TABLET PO SCH (08:43)
[2021-09-02] MEDS: ENOXAPARIN 40 MG/0.4 ML SYRINGE SUBQ SCH ×2 (08:43→20:26)
[2021-09-02] MEDS: polyethylene glycoL 3350 17 GM PACKET PO SCH (08:57)
--- NOTE | 2021-09-02 12:03 | PROVIDER PROGRESS NOTE ---
Subjective - Prog Note Date Prog Note Date: 09/02/21 - Subjective Subjective: He reports doing well. He has been getting out of bed more frequently. He is wondering what [facility] Current Medications - Current Medications Current Medications: Active Medications Acetaminophen (Acetaminophen 325 Mg Tablet) 650 mg PO Q4HR PRN PRN Reason: Pain 1 to 4 Last Admin: 08/31/21 02:36 Dose: 650 mg Documented by: Atorvastatin Calcium (Atorvastatin 40 Mg Tablet) 80 mg PO QPM [facility] Last Admin: 09/01/21 20:39 Dose: 80 mg Documented by: Cholecalciferol (Cholecalciferol 25 Mcg Tablet) 50 mcg PO DAILY [facility] Last Admin: 09/02/21 08:38 Dose: 50 mcg Documented by: Docusate Sodium (Docusate Sodium 250 Mg Capsule) 250 - 500 mg PO DAILY [facility] Last Admin: 09/02/21 08:43 Dose: 250 mg Documented by: Enoxaparin Sodium (Enoxaparin 40 Mg/0.4 Ml Syringe) 40 mg SUBQ BID [facility] Last Admin: 09/02/21 08:43 Dose: 40 mg Documented by: Furosemide (Furosemide 40 Mg/4 Ml Vial) 40 mg IVP DAILY [facility] Last Admin: 09/02/21 08:40 Dose: 40 mg Documented by: Insulin Aspart (Insulin Aspart 300 Unit/3 Ml Pen) 3 - 11 unit SUBQ 0800,1200,1700,2100 [facility]; Protocol Last Admin: 09/02/21 08:37 Dose: Not Given Documented by: Insulin Aspart (Insulin Aspart 300 Unit/3 Ml Pen) 9 unit SUBQ TIDWM [facility] Last Admin: 09/02/21 08:37 Dose: 9 unit Documented by: Insulin Glargine (Insulin Glargine 300 Unit/3 Ml Pen) 30 unit SUBQ 0600,1800 [facility] Last Admin: 09/02/21 06:27 Dose: 30 unit Documented by: Losartan Potassium (Losartan 50 Mg Tablet) 100 mg PO DAILY [facility] Last Admin: 09/02/21 08:40 Dose: 100 mg Documented by: Mineral Oil (Min Oil/Dimethicon/Coconut Oil 92 Gm Tube) 1 applic TOP PRN PRN PRN Reason: Skin Care Last Admin: 08/31/21 10:26 Dose: 1 applic Documented by: Multi-Ingredient Ointment (Zinc Oxide 20% Oint 30 Gm Tube) 1 applic TOP PRN PRN PRN Reason: Skin Care Nystatin (Nystatin Powder 15 Gm) 1 applic TOP BID [facility] Last Admin: 09/01/21 20:41 Dose: 1 applic Documented by: Ondansetron HCl (Ondansetron Odt 4 Mg Tablet) 4 mg TL Q6HR PRN PRN Reason: Nausea / Vomiting Ondansetron HCl (Ondansetron 4 Mg/2 Ml Vial) 4 mg IVP Q6HR PRN PRN Reason: Nausea / Vomiting Oxycodone HCl (Oxycodone 5 Mg Tablet) 5 mg PO Q4HR PRN PRN Reason: Pain 5 to 7 Last Admin: 08/25/21 05:25 Dose: 5 mg Documented by: Polyethylene Glycol (Polyethylene Glycol 3350 17 Gm Packet) 17 gm PO DAILY [facility] Last Admin: 09/02/21 08:57 Dose: 17 gm Documented by: Senna (Senna 8.6 Mg Tablet) 8.6 - 17.2 mg PO DAILY [facility] Last Admin: 09/02/21 08:43 Dose: 8.6 mg Documented by: Sertraline HCl (Sertraline 50 Mg Tablet) 200 mg PO DAILY [facility] Last Admin: 09/02/21 08:40 Dose: 200 mg Documented by: Sodium Chloride (Sodium Chloride Flush 0.9% 10 Ml Syringe) 10 ml IVP PRN PRN PRN Reason: NEEDED PER PROVIDER ORDERS Last Admin: 08/31/21 10:38 Dose: 20 ml Documented by: Tamsulosin HCl (Tamsulosin 0.4 Mg Capsule) 0.4 mg PO DAILY [facility] Last Admin: 09/02/21 08:41 Dose: 0.4 mg Documented by: Aspirin [Aspir 81] 81 mg PO HS 02/26/14 Atorvastatin Calcium [Lipitor] 80 mg PO DAILY 02/26/14 Insulin Glargine,Hum.rec.anlog [Lantus] 30 unit SUBQ BID 02/26/14 Metformin HCl [Fortamet] 1,000 mg PO BID 12/31/20 Tamsulosin [Flomax] 0.8 mg PO QPM 12/31/20 Insulin Aspart [NovoLOG] 4 units SUBQ TIDWM 01/12/21 Empagliflozin [Jardiance] 12.5 mg PO DAILY 08/12/21 Furosemide [Lasix] 40 mg PO DAILY 08/12/21 Losartan Potassium [Cozaar] 100 mg PO DAILY 08/12/21 Sertraline HCl 200 mg PO DAILY 08/12/21 Objective - Vital Signs/Intake & Output Reviewed Vital Signs: Yes Vital Signs: Vital Signs Temp Pulse Resp BP Pulse Ox 09/02/21 08:10 37.1 C 87 19 161/84 H 88 L Intake & Output: Intake & Output 08/30/21 08/31/21 09/01/21 09/02/21 23:59 23:59 23:59 23:59 Intake Total 650 1986 1310 320 Output Total 225 1175 3350 1225 Balance 425 353 -2496 -300 - Objective General Appearance: positive: No acute distress, Alert Eyes Bilateral: positive: Normal inspection, Conjunctivae nml ENT: positive: ENT inspection nml, Other (Nasal cannula in place.) Neck: positive: Nml inspection Respiratory: positive: No respiratory distress, Other (Diminished bilaterally.). negative: Wheezes, Rales Cardiovascular: positive: Regular rate & rhythm, No murmur Abdomen: positive: Non-tender, No distention. negative: Tenderness Skin: positive: Warm, Dry, Other (Bandage in place over bilateral lower extremities.) Extremities: positive: Pedal edema (+2 pitting edema in lower extremities.) Neurologic/Psychiatric: negative: Disoriented to person, Disoriented to place - Lab Results Fish Bones: 09/02/21 04:20 09/02/21 04:20 Other Labs: Lab Results x24hrs 09/02/21 09/02/21 09/02/21 Range/Units 07:28 04:20 04:20 WBC (4.8-10.8) x10^3/uL RBC (4.70-6.10) 10^6/uL Hgb (14.0-18.0) g/dL Hct (42.0-52.0) % MCV (80.0-94.0) fL MCH (27.0-31.0) pg MCHC (32.0-36.0) g/dL RDW (12.0-15.0) % Plt Count (130-450) 10^3/uL MPV (7.4-11.4) fL Neut # (Auto) (1.5-6.6) 10^3/uL Lymph # (Auto) (1.5-3.5) 10^3/uL Daggett # (Auto) (0.0-1.0) 10^3/uL Eos # (Auto) (0.0-0.7) 10^3/uL Baso # (Auto) (0.0-0.1) 10^3/uL Absolute Nucleated RBC x10^3/uL Nucleated RBC % /100WBC Manual Slide Review WBC Morphology (NORMAL) Platelet Estimate (NORMAL) Platelet Morphology (NORMAL) RBC Morph Micro Appear (NORMAL) Sodium 145 (135-145) mmol/L Potassium 4.1 (3.5-5.0) mmol/L Chloride 87 L (101-111) mmol/L Carbon Dioxide > 45 H* (21-32) mmol/L Anion Gap 13.0 (6-13) BUN 30 H (6-20) mg/dL Creatinine 0.7 (0.6-1.2) mg/dL Estimated GFR (MDRD) 112 (>89) Glucose 116 H (70-100) mg/dL POC Whole Bld Glucose 133 H (70 - 100) mg/dL Calcium 9.1 (8.5-10.3) mg/dL Phosphorus 4.1 (2.5-4.6) mg/dL Magnesium 2.2 (1.7-2.8) mg/dL 09/02/21 09/01/21 09/01/21 Range/Units 04:20 20:31 16:26 WBC 6.4 (4.8-10.8) x10^3/uL RBC 4.48 L (4.70-6.10) 10^6/uL Hgb 10.5 L (14.0-18.0) g/dL Hct 39.1 L (42.0-52.0) % MCV 87.3 (80.0-94.0) fL MCH 23.4 L (27.0-31.0) pg MCHC 26.9 L (32.0-36.0) g/dL RDW 17.8 H (12.0-15.0) % Plt Count 253 (130-450) 10^3/uL MPV 10.6 (7.4-11.4) fL Neut # (Auto) 4.4 (1.5-6.6) 10^3/uL Lymph # (Auto) 1.4 L (1.5-3.5) 10^3/uL Daggett # (Auto) 0.4 (0.0-1.0) 10^3/uL Eos # (Auto) 0.2 (0.0-0.7) 10^3/uL Baso # (Auto) 0.0 (0.0-0.1) 10^3/uL Absolute Nucleated RBC 0.00 x10^3/uL Nucleated RBC % 0.0 /100WBC Manual Slide Review Indicated WBC Morphology NORMAL APPEARANCE (NORMAL) Platelet Estimate NORMAL (130-450,000) (NORMAL) Platelet Morphology NORMAL APPEARANCE (NORMAL) RBC Morph Micro Appear 1+ STOMATOCYTES (NORMAL) Sodium (135-145) mmol/L Potassium (3.5-5.0) mmol/L Chloride (101-111) mmol/L Carbon Dioxide (21-32) mmol/L Anion Gap (6-13) BUN (6-20) mg/dL Creatinine (0.6-1.2) mg/dL Estimated GFR (MDRD) (>89) Glucose (70-100) mg/dL POC Whole Bld Glucose 143 H 113 H (70 - 100) mg/dL Calcium (8.5-10.3) mg/dL Phosphorus (2.5-4.6) mg/dL Magnesium (1.7-2.8) mg/dL Assessment/Plan - Problem List (1) Acute on chronic respiratory failure with hypoxia and hypercapnia Impression: This is stable. He has been requiring BiPAP intermittently due to recurring hypercapnia. We feel that he ultimately will benefit from a trilogy machine but [facility] and given he has not established care with pulmonology there yet, it appears he needs to be transferred there to obtain this. Unfortunately they have no beds available. At this time, we will continue with BiPAP in the evening and oxygen via nasal cannula during the day. We are working with evaluation management, social work, and the [facility] to come up with an appropriate discharge plan for the patient. (2) Obesity hypoventilation syndrome Impression: This is the cause of his acute on chronic hypercapnic and hypoxic respiratory failure. Plan as mentioned above. (3) Anasarca Impression: This is ongoing but slowly improving. IV Lasix was resumed today. We will continue to monitor and switch to oral diuretics over the next 24 to 48 hours. He may develop contraction alkalosis and may benefit from Diamox if this occurs. (4) Chronic venous stasis dermatitis of both lower extremities Impression: This is chronic. We are continuing to diurese him to assist with the edema and dressing changes. (5) Mild aortic stenosis Impression: Chronic and stable. He will need outpatient follow-up. (6) Controlled type 2 diabetes mellitus without complication, with long-term current use of insulin Impression: His blood glucose is well controlled on the current insulin regimen which we will continue. (7) Self neglect Impression: He is not a safe discharge home alone given his self-neglect. He has been noncompliant with his CPAP and cannot care for himself. The plan is to get him to a SNF or still living once we can set up trilogy.
[2021-09-02] MEDS: NYSTATIN POWDER 15 GM TOP SCH ×2 (14:00→20:37)
[2021-09-02] MEDS: ATORVASTATIN 40 MG TABLET PO SCH (20:26)
[2021-09-02] MEDS: SODIUM CHLORIDE FLUSH 0.9% 10 ML SYRINGE IVP PRN (20:35)
[2021-09-03 04:59] LABS: BASOPHILS % (AUTO) 0.4 %; EOSINOPHILS # (AUTO) 0.2 10^3/uL (0.0-0.7); EOSINOPHILS % (AUTO) 3.7 %; HCT - HEMATOCRIT 37.6 % (42.0-52.0); HGB - HEMOGLOBIN 10.4 g/dL (14.0-18.0); LYMPHOCYTES # (AUTO) 1.4 10^3/uL (1.5-3.5); LYMPHOCYTES % (AUTO) 26.4 %; MEAN CORPUSCULAR HEMOGLOBIN 23.6 pg (27.0-31.0); MEAN CORPUSCULAR HGB CONC 27.7 g/dL (32.0-36.0); MEAN CORPUSCULAR VOLUME 85.5 fL (80.0-94.0); MEAN PLATELET VOLUME 10.6 fL (7.4-11.4); MONOCYTES # (AUTO) 0.4 10^3/uL (0.0-1.0); MONOCYTES % (AUTO) 6.8 %; NEUTROPHILS # (AUTO) 3.4 10^3/uL (1.5-6.6); NEUTROPHILS % (AUTO) 62.3 %; PLT - PLATELET COUNT 227 10^3/uL (130-450); RED CELL DISTRIBUTION WIDTH 17.4 % (12.0-15.0); WHITE BLOOD COUNT 5.4 x10^3/uL (4.8-10.8)
[2021-09-03 05:09] LABS: SLIDE REVIEW? Indicated
[2021-09-03 05:10] LABS: CALCIUM 8.8 mg/dL (8.5-10.3); CREATININE 0.8 mg/dL (0.6-1.2); POTASSIUM 4.1 mmol/L (3.5-5.0)
[2021-09-03 05:24] LABS: PLATELET MORPHOLOGY NORMAL APPEARANCE (NORMAL)
[2021-09-03 05:25] LABS: PLATELET ESTIMATE, MANUAL NORMAL (130-450,000) (NORMAL); WBC MORPHOLOGY (MULTIPLE) NORMAL APPEARANCE (NORMAL)
[2021-09-03 06:22] LABS: MAGNESIUM 2.4 mg/dL (1.7-2.8); PHOSPHORUS 3.6 mg/dL (2.5-4.6)
[2021-09-03] MEDS: INSULIN GLARGINE 300 UNIT/3 ML PEN SUBQ SCH ×2 (06:33→17:53)
[2021-09-03] MEDS: INSULIN ASPART 300 UNIT/3 ML PEN SUBQ SCH ×7 (07:43→19:49)
[2021-09-03] MEDS: FUROSEMIDE 40 MG/4 ML VIAL IVP SCH (09:00)
[2021-09-03] MEDS: polyethylene glycoL 3350 17 GM PACKET PO SCH (09:00)
[2021-09-03] MEDS: ENOXAPARIN 40 MG/0.4 ML SYRINGE SUBQ SCH ×2 (09:01→19:48)
[2021-09-03] MEDS: SERTRALINE 50 MG TABLET PO SCH (09:06)
[2021-09-03] MEDS: SENNA 8.6 MG TABLET PO SCH (09:06)
[2021-09-03] MEDS: TAMSULOSIN 0.4 MG CAPSULE PO SCH (09:06)
[2021-09-03] MEDS: LOSARTAN 50 MG TABLET PO SCH (09:06)
[2021-09-03] MEDS: DOCUSATE SODIUM 250 MG CAPSULE PO SCH (09:06)
[2021-09-03] MEDS: CHOLECALCIFEROL 25 MCG TABLET PO SCH (09:06)
[2021-09-03] MEDS: NYSTATIN POWDER 15 GM TOP SCH ×2 (09:18→19:49)
[2021-09-03] MEDS: ACETAMINOPHEN 325 MG TABLET PO PRN (10:15)
--- NOTE | 2021-09-03 17:12 | PROVIDER PROGRESS NOTE ---
Subjective - Prog Note Date Prog Note Date: 09/03/21 - Subjective Subjective: Denies feeling short of breath. He is looking forward to getting out of year and going to rehab. Current Medications - Current Medications Current Medications: Active Medications Acetaminophen (Acetaminophen 325 Mg Tablet) 650 mg PO Q4HR PRN PRN Reason: Pain 1 to 4 Last Admin: 09/03/21 10:15 Dose: 650 mg Documented by: Atorvastatin Calcium (Atorvastatin 40 Mg Tablet) 80 mg PO QPM [facility] Last Admin: 09/02/21 20:26 Dose: 80 mg Documented by: Cholecalciferol (Cholecalciferol 25 Mcg Tablet) 50 mcg PO DAILY [facility] Last Admin: 09/03/21 09:06 Dose: 50 mcg Documented by: Docusate Sodium (Docusate Sodium 250 Mg Capsule) 250 - 500 mg PO DAILY [facility] Last Admin: 09/03/21 09:06 Dose: Not Given Documented by: Enoxaparin Sodium (Enoxaparin 40 Mg/0.4 Ml Syringe) 40 mg SUBQ BID [facility] Last Admin: 09/03/21 09:01 Dose: 40 mg Documented by: Furosemide (Furosemide 40 Mg/4 Ml Vial) 40 mg IVP DAILY [facility] Last Admin: 09/03/21 09:00 Dose: 40 mg Documented by: Insulin Aspart (Insulin Aspart 300 Unit/3 Ml Pen) 3 - 11 unit SUBQ 0800,1200,1700,2100 [facility]; Protocol Last Admin: 09/03/21 12:41 Dose: 3 unit Documented by: Insulin Aspart (Insulin Aspart 300 Unit/3 Ml Pen) 9 unit SUBQ TIDWM [facility] Last Admin: 09/03/21 12:41 Dose: 9 unit Documented by: Insulin Glargine (Insulin Glargine 300 Unit/3 Ml Pen) 30 unit SUBQ 0600,1800 [facility] Last Admin: 09/03/21 06:33 Dose: 30 unit Documented by: Losartan Potassium (Losartan 50 Mg Tablet) 100 mg PO DAILY [facility] Last Admin: 09/03/21 09:06 Dose: 100 mg Documented by: Mineral Oil (Min Oil/Dimethicon/Coconut Oil 92 Gm Tube) 1 applic TOP PRN PRN PRN Reason: Skin Care Last Admin: 08/31/21 10:26 Dose: 1 applic Documented by: Multi-Ingredient Ointment (Zinc Oxide 20% Oint 30 Gm Tube) 1 applic TOP PRN PRN PRN Reason: Skin Care Nystatin (Nystatin Powder 15 Gm) 1 applic TOP BID [facility] Last Admin: 09/03/21 09:18 Dose: 1 applic Documented by: Ondansetron HCl (Ondansetron Odt 4 Mg Tablet) 4 mg TL Q6HR PRN PRN Reason: Nausea / Vomiting Ondansetron HCl (Ondansetron 4 Mg/2 Ml Vial) 4 mg IVP Q6HR PRN PRN Reason: Nausea / Vomiting Oxycodone HCl (Oxycodone 5 Mg Tablet) 5 mg PO Q4HR PRN PRN Reason: Pain 5 to 7 Last Admin: 08/25/21 05:25 Dose: 5 mg Documented by: Polyethylene Glycol (Polyethylene Glycol 3350 17 Gm Packet) 17 gm PO DAILY [facility] Last Admin: 09/03/21 09:00 Dose: 17 gm Documented by: Senna (Senna 8.6 Mg Tablet) 8.6 - 17.2 mg PO DAILY [facility] Last Admin: 09/03/21 09:06 Dose: Not Given Documented by: Sertraline HCl (Sertraline 50 Mg Tablet) 200 mg PO DAILY [facility] Last Admin: 09/03/21 09:06 Dose: 200 mg Documented by: Sodium Chloride (Sodium Chloride Flush 0.9% 10 Ml Syringe) 10 ml IVP PRN PRN PRN Reason: NEEDED PER PROVIDER ORDERS Last Admin: 09/02/21 20:35 Dose: 20 ml Documented by: Tamsulosin HCl (Tamsulosin 0.4 Mg Capsule) 0.4 mg PO DAILY [facility] Last Admin: 09/03/21 09:06 Dose: 0.4 mg Documented by: Aspirin [Aspir 81] 81 mg PO HS 02/26/14 Atorvastatin Calcium [Lipitor] 80 mg PO DAILY 02/26/14 Insulin Glargine,Hum.rec.anlog [Lantus] 30 unit SUBQ BID 02/26/14 Metformin HCl [Fortamet] 1,000 mg PO BID 12/31/20 Tamsulosin [Flomax] 0.8 mg PO QPM 12/31/20 Insulin Aspart [NovoLOG] 4 units SUBQ TIDWM 01/12/21 Empagliflozin [Jardiance] 12.5 mg PO DAILY 08/12/21 Furosemide [Lasix] 40 mg PO DAILY 08/12/21 Losartan Potassium [Cozaar] 100 mg PO DAILY 08/12/21 Sertraline HCl 200 mg PO DAILY 08/12/21 Objective - Vital Signs/Intake & Output Reviewed Vital Signs: Yes Vital Signs: Vital Signs x48h Temp Pulse Pulse Resp BP Pulse Ox Pulse Ox 09/03/21 15:50 59 L 09/03/21 13:07 95 09/03/21 11:56 37.1 C 73 17 140/79 H 92 Pulse Ox 09/03/21 15:50 09/03/21 13:07 92 09/03/21 11:56 Intake & Output: Intake & Output 08/31/21 09/01/21 09/02/21 09/03/21 23:59 23:59 23:59 23:59 Intake Total 1985 1310 840 710 Output Total 1173 6600 1825 825 Balance 811 -2040 -985 -115 - Objective General Appearance: positive: No acute distress, Alert Eyes Bilateral: positive: Normal inspection, Conjunctivae nml ENT: positive: ENT inspection nml, Other (Nasal cannula in place.) Neck: positive: Nml inspection Respiratory: positive: No respiratory distress. negative: Wheezes, Rales Cardiovascular: positive: Regular rate & rhythm, Systolic murmur Abdomen: positive: Non-tender, No distention. negative: Tenderness Skin: positive: Warm, Dry, Other (Dressing in place over bilateral lower extremities.) Extremities: positive: Pedal edema (+2 edema in bilateral lower extremities.) Neurologic/Psychiatric: negative: Disoriented to person, Disoriented to place - Lab Results Fish Bones: 09/03/21 04:10 09/03/21 04:10 Other Labs: Lab Results x24hrs 09/03/21 09/03/21 09/03/21 Range/Units 16:51 11:41 07:27 WBC (4.8-10.8) x10^3/uL RBC (4.70-6.10) 10^6/uL Hgb (14.0-18.0) g/dL Hct (42.0-52.0) % MCV (80.0-94.0) fL MCH (27.0-31.0) pg MCHC (32.0-36.0) g/dL RDW (12.0-15.0) % Plt Count (130-450) 10^3/uL MPV (7.4-11.4) fL Neut # (Auto) (1.5-6.6) 10^3/uL Lymph # (Auto) (1.5-3.5) 10^3/uL [place] # (Auto) (0.0-1.0) 10^3/uL Eos # (Auto) (0.0-0.7) 10^3/uL Baso # (Auto) (0.0-0.1) 10^3/uL Absolute Nucleated RBC x10^3/uL Nucleated RBC % /100WBC Manual Slide Review WBC Morphology (NORMAL) Platelet Estimate (NORMAL) Platelet Morphology (NORMAL) RBC Morph Micro Appear (NORMAL) Sodium (135-145) mmol/L Potassium (3.5-5.0) mmol/L Chloride (101-111) mmol/L Carbon Dioxide (21-32) mmol/L Anion Gap (6-13) BUN (6-20) mg/dL Creatinine (0.6-1.2) mg/dL Estimated GFR (MDRD) (>89) Glucose (70-100) mg/dL POC Whole Bld Glucose 149 H 180 H 125 H (70 - 100) mg/dL Calcium (8.5-10.3) mg/dL Phosphorus (2.5-4.6) mg/dL Magnesium (1.7-2.8) mg/dL 09/03/21 09/03/21 09/03/21 Range/Units 04:10 04:10 04:10 WBC 5.4 (4.8-10.8) x10^3/uL RBC 4.40 L (4.70-6.10) 10^6/uL Hgb 10.4 L (14.0-18.0) g/dL Hct 37.6 L (42.0-52.0) % MCV 85.5 (80.0-94.0) fL MCH 23.6 L (27.0-31.0) pg MCHC 27.7 L (32.0-36.0) g/dL RDW 17.4 H (12.0-15.0) % Plt Count 227 (130-450) 10^3/uL MPV 10.6 (7.4-11.4) fL Neut # (Auto) 3.4 (1.5-6.6) 10^3/uL Lymph # (Auto) 1.4 L (1.5-3.5) 10^3/uL [place] # (Auto) 0.4 (0.0-1.0) 10^3/uL Eos # (Auto) 0.2 (0.0-0.7) 10^3/uL Baso # (Auto) 0.0 (0.0-0.1) 10^3/uL Absolute Nucleated RBC 0.00 x10^3/uL Nucleated RBC % 0.0 /100WBC Manual Slide Review Indicated WBC Morphology NORMAL APPEARANCE (NORMAL) Platelet Estimate NORMAL (130-450,000) (NORMAL) Platelet Morphology NORMAL APPEARANCE (NORMAL) RBC Morph Micro Appear 1+ HYPOCHROMASIA (NORMAL) Sodium 142 (135-145) mmol/L Potassium 4.1 (3.5-5.0) mmol/L Chloride 89 L (101-111) mmol/L Carbon Dioxide 45 H* (21-32) mmol/L Anion Gap 8.0 (6-13) BUN 26 H (6-20) mg/dL Creatinine 0.8 (0.6-1.2) mg/dL Estimated GFR (MDRD) 96 (>89) Glucose 122 H (70-100) mg/dL POC Whole Bld Glucose (70 - 100) mg/dL Calcium 8.8 (8.5-10.3) mg/dL Phosphorus 3.6 (2.5-4.6) mg/dL Magnesium 2.4 (1.7-2.8) mg/dL 09/02/21 Range/Units 20:22 WBC (4.8-10.8) x10^3/uL RBC (4.70-6.10) 10^6/uL Hgb (14.0-18.0) g/dL Hct (42.0-52.0) % MCV (80.0-94.0) fL MCH (27.0-31.0) pg MCHC (32.0-36.0) g/dL RDW (12.0-15.0) % Plt Count (130-450) 10^3/uL MPV (7.4-11.4) fL Neut # (Auto) (1.5-6.6) 10^3/uL Lymph # (Auto) (1.5-3.5) 10^3/uL [place] # (Auto) (0.0-1.0) 10^3/uL Eos # (Auto) (0.0-0.7) 10^3/uL Baso # (Auto) (0.0-0.1) 10^3/uL Absolute Nucleated RBC x10^3/uL Nucleated RBC % /100WBC Manual Slide Review WBC Morphology (NORMAL) Platelet Estimate (NORMAL) Platelet Morphology (NORMAL) RBC Morph Micro Appear (NORMAL) Sodium (135-145) mmol/L Potassium (3.5-5.0) mmol/L Chloride (101-111) mmol/L Carbon Dioxide (21-32) mmol/L Anion Gap (6-13) BUN (6-20) mg/dL Creatinine (0.6-1.2) mg/dL Estimated GFR (MDRD) (>89) Glucose (70-100) mg/dL POC Whole Bld Glucose 149 H (70 - 100) mg/dL Calcium (8.5-10.3) mg/dL Phosphorus (2.5-4.6) mg/dL Magnesium (1.7-2.8) mg/dL Assessment/Plan - Problem List (1) Acute on chronic respiratory failure with hypoxia and hypercapnia Impression: This is resolved. He has required BiPAP intermittently due to recurrent hypercapnia from his obesity hypoventilation syndrome. We feel that at this point time, he would benefit from a noninvasive ventilator at home such as trilogy. Given the [facility] has no beds we are unable to transfer him there to be evaluated by our biomedical engineering internship and so we will look to obtain a trilogy machine through Medicare. Appreciate social work and respiratory therapy input. At t his time we will continue with BiPAP in the evening but ultimately he will need trilogy. (2) Obesity hypoventilation syndrome Impression: This is the cause of his acute on chronic hypercapnic and hypoxic respiratory failure. It is felt that this point time, on noninvasive ventilator is required to reduce hospitalization and improve the patient's health. BiPAP is considered but it is felt that it is not effective. I am ordering home noninvasive and later to treat the patient's chronic respiratory failure. (3) Anasarca Impression: This is ongoing but improving. We will continue IV diuresis during this hospita lization before transitioning to oral Lasix on discharge. (4) Chronic venous stasis dermatitis of both lower extremities Impression: This is chronic. We are continuing to diurese him to assist with the edema and dressing changes. (5) Mild aortic stenosis Impression: Chronic and stable. He will need outpatient follow-up. (6) Controlled type 2 diabetes mellitus without complication, with long-term cu rrent use of insulin Impression: His blood glucose is well controlled on the current insulin regimen which we will continue. (7) Self neglect Impression: He is not a safe discharge home alone given his self-neglect. He has been nonc ompliant with his CPAP and cannot care for himself. The plan is to get him to a SNF or still living once we can set up trilogy.
[2021-09-03] MEDS: oxyCODONE 5 MG TABLET PO PRN (19:48)
[2021-09-03] MEDS: ATORVASTATIN 40 MG TABLET PO SCH (19:48)
[2021-09-04 04:31] LABS: BASOPHILS % (AUTO) 0.4 %; EOSINOPHILS # (AUTO) 0.2 10^3/uL (0.0-0.7); HCT - HEMATOCRIT 38.6 % (42.0-52.0); HGB - HEMOGLOBIN 10.5 g/dL (14.0-18.0); LYMPHOCYTES # (AUTO) 1.5 10^3/uL (1.5-3.5); LYMPHOCYTES % (AUTO) 26.1 %; MEAN CORPUSCULAR HEMOGLOBIN 23.4 pg (27.0-31.0); MEAN CORPUSCULAR HGB CONC 27.2 g/dL (32.0-36.0); MEAN PLATELET VOLUME 10.2 fL (7.4-11.4); MONOCYTES # (AUTO) 0.4 10^3/uL (0.0-1.0); MONOCYTES % (AUTO) 6.7 %; NEUTROPHILS # (AUTO) 3.5 10^3/uL (1.5-6.6); NEUTROPHILS % (AUTO) 62.4 %; PLT - PLATELET COUNT 228 10^3/uL (130-450); RED BLOOD COUNT 4.49 10^6/uL (4.70-6.10); RED CELL DISTRIBUTION WIDTH 17.7 % (12.0-15.0); WHITE BLOOD COUNT 5.6 x10^3/uL (4.8-10.8)
[2021-09-04 04:41] LABS: SLIDE REVIEW? Indicated
[2021-09-04 04:42] LABS: CALCIUM 8.9 mg/dL (8.5-10.3); CREATININE 0.8 mg/dL (0.6-1.2); MAGNESIUM 2.3 mg/dL (1.7-2.8); PHOSPHORUS 3.9 mg/dL (2.5-4.6); POTASSIUM 4.2 mmol/L (3.5-5.0)
[2021-09-04 04:53] LABS: PLATELET ESTIMATE, MANUAL NORMAL (130-450,000) (NORMAL); PLATELET MORPHOLOGY NORMAL APPEARANCE (NORMAL); WBC MORPHOLOGY (MULTIPLE) NORMAL APPEARANCE (NORMAL)
[2021-09-04] MEDS: INSULIN GLARGINE 300 UNIT/3 ML PEN SUBQ SCH ×2 (06:06→17:28)
--- NOTE | 2021-09-04 07:09 | PROVIDER PROGRESS NOTE ---
Subjective - Prog Note Date Prog Note Date: 09/04/21 - Subjective Subjective: He reports feeling well. Denies any shortness of breath. Has been compliant with BiPAP. He has been ambulating more each day and today he did not require any assistance. Current Medications - Current Medications Current Medications: Active Medications Acetaminophen (Acetaminophen 325 Mg Tablet) 650 mg PO Q4HR PRN PRN Reason: Pain 1 to 4 Last Admin: 09/03/21 10:15 Dose: 650 mg Documented by: Atorvastatin Calcium (Atorvastatin 40 Mg Tablet) 80 mg PO QPM [facility] Last Admin: 09/03/21 19:48 Dose: 80 mg Documented by: Cholecalciferol (Cholecalciferol 25 Mcg Tablet) 50 mcg PO DAILY [facility] Last Admin: 09/03/21 09:06 Dose: 50 mcg Documented by: Docusate Sodium (Docusate Sodium 250 Mg Capsule) 250 - 500 mg PO DAILY [facility] Last Admin: 09/03/21 09:06 Dose: Not Given Documented by: Enoxaparin Sodium (Enoxaparin 40 Mg/0.4 Ml Syringe) 40 mg SUBQ BID [facility] Last Admin: 09/03/21 19:48 Dose: 40 mg Documented by: Furosemide (Furosemide 40 Mg/4 Ml Vial) 40 mg IVP DAILY [facility] Last Admin: 09/03/21 09:00 Dose: 40 mg Documented by: Insulin Aspart (Insulin Aspart 300 Unit/3 Ml Pen) 3 - 11 unit SUBQ 0800,1200,1700,2100 [facility]; Protocol Last Admin: 09/03/21 19:49 Dose: 3 unit Documented by: Insulin Aspart (Insulin Aspart 300 Unit/3 Ml Pen) 9 unit SUBQ TIDWM [facility] Last Admin: 09/03/21 17:54 Dose: 9 unit Documented by: Insulin Glargine (Insulin Glargine 300 Unit/3 Ml Pen) 30 unit SUBQ 0600,1800 [facility] Last Admin: 09/04/21 06:06 Dose: 30 unit Documented by: Losartan Potassium (Losartan 50 Mg Tablet) 100 mg PO DAILY [facility] Last Admin: 09/03/21 09:06 Dose: 100 mg Documented by: Mineral Oil (Min Oil/Dimethicon/Coconut Oil 92 Gm Tube) 1 applic TOP PRN PRN PRN Reason: Skin Care Last Admin: 08/31/21 10:26 Dose: 1 applic Documented by: Multi-Ingredient Ointment (Zinc Oxide 20% Oint 30 Gm Tube) 1 applic TOP PRN PRN PRN Reason: Skin Care Nystatin (Nystatin Powder 15 Gm) 1 applic TOP BID [facility] Last Admin: 09/03/21 19:49 Dose: 1 applic Documented by: Ondansetron HCl (Ondansetron Odt 4 Mg Tablet) 4 mg TL Q6HR PRN PRN Reason: Nausea / Vomiting Ondansetron HCl (Ondansetron 4 Mg/2 Ml Vial) 4 mg IVP Q6HR PRN PRN Reason: Nausea / Vomiting Oxycodone HCl (Oxycodone 5 Mg Tablet) 5 mg PO Q4HR PRN PRN Reason: Pain 5 to 7 Last Admin: 09/03/21 19:48 Dose: 5 mg Documented by: Polyethylene Glycol (Polyethylene Glycol 3350 17 Gm Packet) 17 gm PO DAILY [facility] Last Admin: 09/03/21 09:00 Dose: 17 gm Documented by: Senna (Senna 8.6 Mg Tablet) 8.6 - 17.2 mg PO DAILY [facility] Last Admin: 09/03/21 09:06 Dose: Not Given Documented by: Sertraline HCl (Sertraline 50 Mg Tablet) 200 mg PO DAILY [facility] Last Admin: 09/03/21 09:06 Dose: 200 mg Documented by: Sodium Chloride (Sodium Chloride Flush 0.9% 10 Ml Syringe) 10 ml IVP PRN PRN PRN Reason: NEEDED PER PROVIDER ORDERS Last Admin: 09/02/21 20:35 Dose: 20 ml Documented by: Tamsulosin HCl (Tamsulosin 0.4 Mg Capsule) 0.4 mg PO DAILY [facility] Last Admin: 09/03/21 09:06 Dose: 0.4 mg Documented by: Aspirin [Aspir 81] 81 mg PO HS 02/26/14 Atorvastatin Calcium [Lipitor] 80 mg PO DAILY 02/26/14 Insulin Glargine,Hum.rec.anlog [Lantus] 30 unit SUBQ BID 02/26/14 Metformin HCl [Fortamet] 1,000 mg PO BID 12/31/20 Tamsulosin [Flomax] 0.8 mg PO QPM 12/31/20 Insulin Aspart [NovoLOG] 4 units SUBQ TIDWM 01/12/21 Empagliflozin [Jardiance] 12.5 mg PO DAILY 08/12/21 Furosemide [Lasix] 40 mg PO DAILY 08/12/21 Losartan Potassium [Cozaar] 100 mg PO DAILY 08/12/21 Sertraline HCl 200 mg PO DAILY 08/12/21 Objective - Vital Signs/Intake & Output Reviewed Vital Signs: Yes Vital Signs: Vital Signs x48h Temp Pulse Pulse Resp BP Pulse Ox 09/04/21 04:32 37.1 C 60 92 H 135/60 H 24 L 09/04/21 01:25 PST 52 L 09/04/21 01:08 PST 54 L 19 133/61 H 96 Intake & Output: Intake & Output 09/01/21 09/02/21 09/03/21 09/04/21 23:59 23:59 23:59 22:59 Intake Total 8367 633 8623 350 Output Total 3350 1825 825 650 Balance -0 -5 505 -300 - Objective General Appearance: positive: No acute distress, Alert Eyes Bilateral: positive: Normal inspection ENT: positive: ENT inspection nml, Other (Nasal cannula in place.) Neck: positive: Nml inspection Respiratory: positive: No respiratory distress. negative: Wheezes, Rales Cardiovascular: positive: Systolic murmur. negative: Irregularly irregular, Tachycardia Skin: positive: Other (Dressing in place over bilateral lower extremities.) Extremities: positive: Pedal edema (+2 pitting edema in bilateral lower extremities.) - Lab Results Fish Bones: 09/04/21 04:06 09/04/21 04:06 Other Labs: Lab Results x24hrs 09/04/21 09/04/21 09/03/21 Range/Units 04:06 04:06 19:46 WBC 5.6 (4.8-10.8) x10^3/uL RBC 4.49 L (4.70-6.10) 10^6/uL Hgb 10.5 L (14.0-18.0) g/dL Hct 38.6 L (42.0-52.0) % MCV 86.0 (80.0-94.0) fL MCH 23.4 L (27.0-31.0) pg MCHC 27.2 L (32.0-36.0) g/dL RDW 17.7 H (12.0-15.0) % Plt Count 228 (130-450) 10^3/uL MPV 10.2 (7.4-11.4) fL Neut # (Auto) 3.5 (1.5-6.6) 10^3/uL Lymph # (Auto) 1.5 (1.5-3.5) 10^3/uL [place] # (Auto) 0.4 (0.0-1.0) 10^3/uL Eos # (Auto) 0.2 (0.0-0.7) 10^3/uL Baso # (Auto) 0.0 (0.0-0.1) 10^3/uL Absolute Nucleated RBC 0.00 x10^3/uL Nucleated RBC % 0.0 /100WBC Manual Slide Review Indicated WBC Morphology NORMAL APPEARANCE (NORMAL) Platelet Estimate NORMAL (130-450,000) (NORMAL) Platelet Morphology NORMAL APPEARANCE (NORMAL) RBC Morph Micro Appear 1+ STOMATOCYTES (NORMAL) Sodium 141 (135-145) mmol/L Potassium 4.2 (3.5-5.0) mmol/L Chloride 90 L (101-111) mmol/L Carbon Dioxide 39 H* (21-32) mmol/L Anion Gap 12.0 (6-13) BUN 25 H (6-20) mg/dL Creatinine 0.8 (0.6-1.2) mg/dL Estimated GFR (MDRD) 96 (>89) Glucose 122 H (70-100) mg/dL POC Whole Bld Glucose 167 H (70 - 100) mg/dL Calcium 8.9 (8.5-10.3) mg/dL Phosphorus 3.9 (2.5-4.6) mg/dL Magnesium 2.3 (1.7-2.8) mg/dL 09/03/21 09/03/21 Range/Units 16:51 11:41 WBC (4.8-10.8) x10^3/uL RBC (4.70-6.10) 10^6/uL Hgb (14.0-18.0) g/dL Hct (42.0-52.0) % MCV (80.0-94.0) fL MCH (27.0-31.0) pg MCHC (32.0-36.0) g/dL RDW (12.0-15.0) % Plt Count (130-450) 10^3/uL MPV (7.4-11.4) fL Neut # (Auto) (1.5-6.6) 10^3/uL Lymph # (Auto) (1.5-3.5) 10^3/uL [place] # (Auto) (0.0-1.0) 10^3/uL Eos # (Auto) (0.0-0.7) 10^3/uL Baso # (Auto) (0.0-0.1) 10^3/uL Absolute Nucleated RBC x10^3/uL Nucleated RBC % /100WBC Manual Slide Review WBC Morphology (NORMAL) Platelet Estimate (NORMAL) Platelet Morphology (NORMAL) RBC Morph Micro Appear (NORMAL) Sodium (135-145) mmol/L Potassium (3.5-5.0) mmol/L Chloride (101-111) mmol/L Carbon Dioxide (21-32) mmol/L Anion Gap (6-13) BUN (6-20) mg/dL Creatinine (0.6-1.2) mg/dL Estimated GFR (MDRD) (>89) Glucose (70-100) mg/dL POC Whole Bld Glucose 149 H 180 H (70 - 100) mg/dL Calcium (8.5-10.3) mg/dL Phosphorus (2.5-4.6) mg/dL Magnesium (1.7-2.8) mg/dL Assessment/Plan - Problem List (1) Acute on chronic respiratory failure with hypoxia and hypercapnia Impression: This is resolved. He has required BiPAP intermittently due to recurrent hypercapnia from his obesity hypoventilation syndrome. We feel that at this point time, he would benefit from a noninvasive ventilator at home such as trilogy. Given the [facility] has no beds we are unable to transfer him there to be ev aluated by our residential substance abuse counselor and so we will look to obtain a trilogy machine through Medicare. Appreciate social work and respiratory therapy input. Continue with BiPaP in the evenings. (2) Obesity hypoventilation syndrome Impression: This is the cause of his acute on chronic hypercapnic and hypoxic respiratory failure. It is felt that this point time, on noninvasive ventilator is required to reduce hospitalization and improve the patient's health. BiPAP is considered but it is felt that it is not effective. I am ordering home noninvasive and later to treat the patient's chronic respiratory failure. (3) Anasarca Impression: This is ongoing but improving. We will continue IV diuresis for one more day and transition to oral antibiotics tomorrow in anticipation of discharge. (4) Chronic venous stasis dermatitis of both lower extremities Impression: This is chronic. We are continuing to diurese him to assist with the edema and dressing changes. (5) Mild aortic stenosis Impression: Chronic and stable. He will need outpatient follow-up. (6) Controlled type 2 diabetes mellitus without complication, with long-term current use of insulin Impression: His blood glucose is well controlled on the current insulin regimen which we will continue. (7) Self neglect Impression: He is not a safe discharge home alone given his self-neglect. He has been noncompliant with his CPAP and cannot care for himself. The plan is to get him to a SNF or assisted living once we can set up trilogy.
[2021-09-04] MEDS: DOCUSATE SODIUM 250 MG CAPSULE PO SCH (08:49)
[2021-09-04] MEDS: SENNA 8.6 MG TABLET PO SCH (08:49)
[2021-09-04] MEDS: CHOLECALCIFEROL 25 MCG TABLET PO SCH (08:49)
[2021-09-04] MEDS: TAMSULOSIN 0.4 MG CAPSULE PO SCH (08:49)
[2021-09-04] MEDS: SERTRALINE 50 MG TABLET PO SCH (08:49)
[2021-09-04] MEDS: FUROSEMIDE 40 MG/4 ML VIAL IVP SCH (08:49)
[2021-09-04] MEDS: LOSARTAN 50 MG TABLET PO SCH (08:49)
[2021-09-04] MEDS: polyethylene glycoL 3350 17 GM PACKET PO SCH (08:50)
[2021-09-04] MEDS: ENOXAPARIN 40 MG/0.4 ML SYRINGE SUBQ SCH ×2 (08:50→21:00)
[2021-09-04] MEDS: INSULIN ASPART 300 UNIT/3 ML PEN SUBQ SCH ×7 (09:07→21:00)
[2021-09-04] MEDS: NYSTATIN POWDER 15 GM TOP SCH ×2 (09:07→21:00)
[2021-09-04] MEDS: ATORVASTATIN 40 MG TABLET PO SCH (21:00)
[2021-09-05] MEDS: INSULIN GLARGINE 300 UNIT/3 ML PEN SUBQ SCH ×2 (06:01→18:43)
[2021-09-05] MEDS: INSULIN ASPART 300 UNIT/3 ML PEN SUBQ SCH ×7 (08:29→20:44)
[2021-09-05] MEDS: SERTRALINE 50 MG TABLET PO SCH (08:39)
[2021-09-05] MEDS: FUROSEMIDE 40 MG TABLET PO SCH (08:39)
[2021-09-05] MEDS: TAMSULOSIN 0.4 MG CAPSULE PO SCH (08:39)
[2021-09-05] MEDS: SENNA 8.6 MG TABLET PO SCH (08:39)
[2021-09-05] MEDS: LOSARTAN 50 MG TABLET PO SCH (08:39)
[2021-09-05] MEDS: polyethylene glycoL 3350 17 GM PACKET PO SCH (08:40)
[2021-09-05] MEDS: CHOLECALCIFEROL 25 MCG TABLET PO SCH (08:40)
[2021-09-05] MEDS: DOCUSATE SODIUM 250 MG CAPSULE PO SCH (08:40)
[2021-09-05] MEDS: ENOXAPARIN 40 MG/0.4 ML SYRINGE SUBQ SCH ×2 (08:40→20:44)
[2021-09-05] MEDS: NYSTATIN POWDER 15 GM TOP SCH ×2 (10:39→20:44)
--- NOTE | 2021-09-05 18:43 | PROVIDER PROGRESS NOTE ---
Subjective - Prog Note Date Prog Note Date: 09/05/21 - Subjective Subjective: He continues to report feeling well. Denies dyspnea. Current Medications - Current Medications Current Medications: Active Medications Acetaminophen (Acetaminophen 325 Mg Tablet) 650 mg PO Q4HR PRN PRN Reason: Pain 1 to 4 Last Admin: 09/03/21 10:15 Dose: 650 mg Documented by: Atorvastatin Calcium (Atorvastatin 40 Mg Tablet) 80 mg PO QPM [facility] Last Admin: 09/04/21 21:00 Dose: 80 mg Documented by: Cholecalciferol (Cholecalciferol 25 Mcg Tablet) 50 mcg PO DAILY [facility] Last Admin: 09/05/21 08:40 Dose: 50 mcg Documented by: Docusate Sodium (Docusate Sodium 250 Mg Capsule) 250 - 500 mg PO DAILY [facility] Last Admin: 09/05/21 08:40 Dose: 250 mg Documented by: Enoxaparin Sodium (Enoxaparin 40 Mg/0.4 Ml Syringe) 40 mg SUBQ BID [facility] Last Admin: 09/05/21 08:40 Dose: 40 mg Documented by: Furosemide (Furosemide 40 Mg Tablet) 40 mg PO DAILY [facility] Last Admin: 09/05/21 08:39 Dose: 40 mg Documented by: Insulin Aspart (Insulin Aspart 300 Unit/3 Ml Pen) 3 - 11 unit SUBQ 0800,1200,1700,2100 [facility]; Protocol Last Admin: 09/05/21 16:39 Dose: Not Given Documented by: Insulin Aspart (Insulin Aspart 300 Unit/3 Ml Pen) 9 unit SUBQ TIDWM [facility] Last Admin: 09/05/21 16:59 Dose: 9 unit Documented by: Insulin Glargine (Insulin Glargine 300 Unit/3 Ml Pen) 30 unit SUBQ 0600,1800 [facility] Last Admin: 09/05/21 18:43 Dose: 30 unit Documented by: Losartan Potassium (Losartan 50 Mg Tablet) 100 mg PO DAILY [facility] Last Admin: 09/05/21 08:39 Dose: 100 mg Documented by: Mineral Oil (Min Oil/Dimethicon/Coconut Oil 92 Gm Tube) 1 applic TOP PRN PRN PRN Reason: Skin Care Last Admin: 08/31/21 10:26 Dose: 1 applic Documented by: Multi-Ingredient Ointment (Zinc Oxide 20% Oint 30 Gm Tube) 1 applic TOP PRN PRN PRN Reason: Skin Care Nystatin (Nystatin Powder 15 Gm) 1 applic TOP BID [facility] Last Admin: 09/05/21 10:39 Dose: 1 applic Documented by: Ondansetron HCl (Ondansetron Odt 4 Mg Tablet) 4 mg TL Q6HR PRN PRN Reason: Nausea / Vomiting Ondansetron HCl (Ondansetron 4 Mg/2 Ml Vial) 4 mg IVP Q6HR PRN PRN Reason: Nausea / Vomiting Oxycodone HCl (Oxycodone 5 Mg Tablet) 5 mg PO Q4HR PRN PRN Reason: Pain 5 to 7 Last Admin: 09/03/21 19:48 Dose: 5 mg Documented by: Polyethylene Glycol (Polyethylene Glycol 3350 17 Gm Packet) 17 gm PO DAILY [facility] Last Admin: 09/05/21 08:40 Dose: 17 gm Documented by: Senna (Senna 8.6 Mg Tablet) 8.6 - 17.2 mg PO DAILY [facility] Last Admin: 09/05/21 08:39 Dose: 8.6 mg Documented by: Sertraline HCl (Sertraline 50 Mg Tablet) 200 mg PO DAILY [facility] Last Admin: 09/05/21 08:39 Dose: 200 mg Documented by: Sodium Chloride (Sodium Chloride Flush 0.9% 10 Ml Syringe) 10 ml IVP PRN PRN PRN Reason: NEEDED PER PROVIDER ORDERS Last Admin: 09/02/21 20:35 Dose: 20 ml Documented by: Tamsulosin HCl (Tamsulosin 0.4 Mg Capsule) 0.4 mg PO DAILY [facility] Last Admin: 09/05/21 08:39 Dose: 0.4 mg Documented by: Aspirin [Aspir 81] 81 mg PO HS 02/26/14 Atorvastatin Calcium [Lipitor] 80 mg PO DAILY 02/26/14 Insulin Glargine,Hum.rec.anlog [Lantus] 30 unit SUBQ BID 02/26/14 Metformin HCl [Fortamet] 1,000 mg PO BID 12/31/20 Tamsulosin [Flomax] 0.8 mg PO QPM 12/31/20 Insulin Aspart [NovoLOG] 4 units SUBQ TIDWM 01/12/21 Empagliflozin [Jardiance] 12.5 mg PO DAILY 08/12/21 Furosemide [Lasix] 40 mg PO DAILY 08/12/21 Losartan Potassium [Cozaar] 100 mg PO DAILY 08/12/21 Sertraline HCl 200 mg PO DAILY 08/12/21 Objective - Vital Signs/Intake & Output Reviewed Vital Signs: Yes Vital Signs: Vital Signs x48h Temp Pulse Pulse Resp BP Pulse Ox 09/05/21 15:35 36.8 C 63 19 137/61 H 98 09/05/21 13:34 64 09/05/21 12:56 72 24 115/53 L 94 Intake & Output: Intake & Output 09/03/21 09/04/21 09/04/21 09/05/21 00:59 00:59 23:59 23:59 Intake Total 580 Output Total 450 Balance 130 - Objective General Appearance: positive: No acute distress, Alert Eyes Bilateral: positive: Normal inspection, Conjunctivae nml ENT: positive: ENT inspection nml, Other (Nasal cannula in place.) Respiratory: positive: No respiratory distress. negative: Wheezes, Rales Cardiovascular: positive: Regular rate & rhythm, Systolic murmur. negative: Tachycardia Skin: positive: Warm, Dry, Other (Dressing in place over bilateral lower extremities.) Extremities: positive: Pedal edema (+2 edema in bilateral lower extremities.) - Lab Results Fish Bones: 09/04/21 04:06 09/04/21 04:06 Other Labs: Lab Results x24hrs 09/05/21 09/05/21 09/05/21 Range/Units 16:25 11:10 07:43 POC Whole Bld Glucose 133 H 165 H 95 (70 - 100) mg/dL 09/05/21 09/04/21 Range/Units 05:55 21:00 POC Whole Bld Glucose 95 116 H (70 - 100) mg/dL Assessment/Plan - Problem List (1) Acute on chronic respiratory failure with hypoxia and hypercapnia Impression: Resolved. We are looking to obtain trilogy through Medicare and we are hopeful this will be set up this week. Unfortunately the noninvasive ventilator is backordered so this can take a few days. Once he has this then he can be discharged to assisted living. (2) Obesity hypoventilation syndrome Impression: This is the cause of his acute on chronic hypercapnic and hypoxic respiratory failure. It is felt that this point time, on noninvasive ventilator is required to reduce hospitalization and improve the patient's health. BiPAP is considered but it is felt that it is not effective. I am ordering home noninvasive and later to treat the patient's chronic respiratory failure. (3) Anasarca Impression: This is ongoing but improved. He is now on oral Lasix. (4) Chronic venous stasis dermatitis of both lower extremities Impression: This is chronic. We are continuing to diurese him to assist with the edema and dressing changes. (5) Mild aortic stenosis Impression: Chronic and stable. He will need outpatient follow-up. (6) Controlled type 2 diabetes mellitus without complication, with long-term current use of insulin Impression: His blood glucose is well controlled on the current insulin regimen which we will continue. (7) Self neglect Impression: He is not a safe discharge home alone given his self-neglect. He has been noncompliant with his CPAP and cannot care for himself. The plan is to get him to assisted living once we can set up trilogy as he no longer requires a SNF.
[2021-09-05] MEDS: ATORVASTATIN 40 MG TABLET PO SCH (20:43)
[2021-09-05] MEDS: SODIUM CHLORIDE FLUSH 0.9% 10 ML SYRINGE IVP PRN (20:45)
[2021-09-06] MEDS: INSULIN GLARGINE 300 UNIT/3 ML PEN SUBQ SCH ×2 (06:17→18:41)
[2021-09-06] MEDS: INSULIN ASPART 300 UNIT/3 ML PEN SUBQ SCH ×7 (08:33→20:54)
[2021-09-06] MEDS: SERTRALINE 50 MG TABLET PO SCH (08:45)
[2021-09-06] MEDS: LOSARTAN 50 MG TABLET PO SCH (08:46)
[2021-09-06] MEDS: ENOXAPARIN 40 MG/0.4 ML SYRINGE SUBQ SCH ×2 (08:46→20:53)
[2021-09-06] MEDS: CHOLECALCIFEROL 25 MCG TABLET PO SCH (08:46)
[2021-09-06] MEDS: DOCUSATE SODIUM 250 MG CAPSULE PO SCH (08:47)
[2021-09-06] MEDS: FUROSEMIDE 40 MG TABLET PO SCH (08:47)
[2021-09-06] MEDS: polyethylene glycoL 3350 17 GM PACKET PO SCH (08:47)
[2021-09-06] MEDS: TAMSULOSIN 0.4 MG CAPSULE PO SCH (08:47)
[2021-09-06] MEDS: SENNA 8.6 MG TABLET PO SCH (08:47)
[2021-09-06] MEDS: NYSTATIN POWDER 15 GM TOP SCH ×2 (08:48→20:53)
--- NOTE | 2021-09-06 17:01 | PROVIDER PROGRESS NOTE ---
Subjective - Prog Note Date Prog Note Date: 09/06/21 Prog Note Time: 16:59 - Subjective Pt reports feeling: Improved Subjective: he wants to go home. feels like he can but I've reminded him that he has already shown thru past behavior that he can't be trusted. He self neglects to the point of danger to his health. We have now found out that he is not registered w Medicare B. Current Medications - Current Medications Current Medications: Active Medications Acetaminophen (Acetaminophen 325 Mg Tablet) 650 mg PO Q4HR PRN PRN Reason: Pain 1 to 4 Last Admin: 09/03/21 10:15 Dose: 650 mg Documented by: Atorvastatin Calcium (Atorvastatin 40 Mg Tablet) 80 mg PO QPM [facility] Last Admin: 09/05/21 20:43 Dose: 80 mg Documented by: Cholecalciferol (Cholecalciferol 25 Mcg Tablet) 50 mcg PO DAILY [facility] Last Admin: 09/06/21 08:46 Dose: 50 mcg Documented by: Docusate Sodium (Docusate Sodium 250 Mg Capsule) 250 - 500 mg PO DAILY [facility] Last Admin: 09/06/21 08:47 Dose: 250 mg Documented by: Enoxaparin Sodium (Enoxaparin 40 Mg/0.4 Ml Syringe) 40 mg SUBQ BID [facility] Last Admin: 09/06/21 08:46 Dose: 40 mg Documented by: Furosemide (Furosemide 40 Mg Tablet) 40 mg PO DAILY [facility] Last Admin: 09/06/21 08:47 Dose: 40 mg Documented by: Insulin Aspart (Insulin Aspart 300 Unit/3 Ml Pen) 3 - 11 unit SUBQ 0800,1200,1700,2100 [facility]; Protocol Last Admin: 09/06/21 12:39 Dose: Not Given Documented by: Insulin Aspart (Insulin Aspart 300 Unit/3 Ml Pen) 9 unit SUBQ TIDWM [facility] Last Admin: 09/06/21 12:19 Dose: 9 unit Documented by: Insulin Glargine (Insulin Glargine 300 Unit/3 Ml Pen) 30 unit SUBQ 0600,1800 [facility] Last Admin: 09/06/21 06:17 Dose: 30 unit Documented by: Losartan Potassium (Losartan 50 Mg Tablet) 100 mg PO DAILY [facility] Last Admin: 09/06/21 08:46 Dose: 100 mg Documented by: Mineral Oil (Min Oil/Dimethicon/Coconut Oil 92 Gm Tube) 1 applic TOP PRN PRN PRN Reason: Skin Care Last Admin: 08/31/21 10:26 Dose: 1 applic Documented by: Multi-Ingredient Ointment (Zinc Oxide 20% Oint 30 Gm Tube) 1 applic TOP PRN PRN PRN Reason: Skin Care Nystatin (Nystatin Powder 15 Gm) 1 applic TOP BID [facility] Last Admin: 09/06/21 08:48 Dose: 1 applic Documented by: Ondansetron HCl (Ondansetron Odt 4 Mg Tablet) 4 mg TL Q6HR PRN PRN Reason: Nausea / Vomiting Ondansetron HCl (Ondansetron 4 Mg/2 Ml Vial) 4 mg IVP Q6HR PRN PRN Reason: Nausea / Vomiting Oxycodone HCl (Oxycodone 5 Mg Tablet) 5 mg PO Q4HR PRN PRN Reason: Pain 5 to 7 Last Admin: 09/03/21 19:48 Dose: 5 mg Documented by: Polyethylene Glycol (Polyethylene Glycol 3350 17 Gm Packet) 17 gm PO DAILY [facility] Last Admin: 09/06/21 08:47 Dose: Not Given Documented by: Senna (Senna 8.6 Mg Tablet) 8.6 - 17.2 mg PO DAILY [facility] Last Admin: 09/06/21 08:47 Dose: 8.6 mg Documented by: Sertraline HCl (Sertraline 50 Mg Tablet) 200 mg PO DAILY [facility] Last Admin: 09/06/21 08:45 Dose: 200 mg Documented by: Sodium Chloride (Sodium Chloride Flush 0.9% 10 Ml Syringe) 10 ml IVP PRN PRN PRN Reason: NEEDED PER PROVIDER ORDERS Last Admin: 09/05/21 20:45 Dose: 10 ml Documented by: Tamsulosin HCl (Tamsulosin 0.4 Mg Capsule) 0.4 mg PO DAILY [facility] Last Admin: 09/06/21 08:47 Dose: 0.4 mg Documented by: Aspirin [Aspir 81] 81 mg PO HS 02/26/14 Atorvastatin Calcium [Lipitor] 80 mg PO DAILY 02/26/14 Insulin Glargine,Hum.rec.anlog [Lantus] 30 unit SUBQ BID 02/26/14 Metformin HCl [Fortamet] 1,000 mg PO BID 12/31/20 Tamsulosin [Flomax] 0.8 mg PO QPM 12/31/20 Insulin Aspart [NovoLOG] 4 units SUBQ TIDWM 01/12/21 Empagliflozin [Jardiance] 12.5 mg PO DAILY 08/12/21 Furosemide [Lasix] 40 mg PO DAILY 08/12/21 Losartan Potassium [Cozaar] 100 mg PO DAILY 08/12/21 Sertraline HCl 200 mg PO DAILY 08/12/21 Objective - Vital Signs/Intake & Output Reviewed Vital Signs: Yes Vital Signs: Vital Signs x48h Temp Pulse Resp BP Pulse Ox 09/06/21 13:00 36.2 C L 57 L 21 128/56 L 92 09/06/21 09:00 36.8 C 59 L 19 139/58 H 2 L Intake & Output: Intake & Output 09/04/21 09/04/21 09/05/21 09/06/21 00:59 23:59 23:59 23:59 Intake Total 820 760 Output Total 700 225 Balance 120 535 - Objective General Appearance: positive: No acute distress, Alert, Other (Morbidly obese, White male, pleasant, sitting up in a chair eating breakfast) Eyes Bilateral: positive: PERRL, EOMI ENT: positive: Pharynx nml, No signs of dehydration Neck: positive: No JVD. negative: Lymphadenopathy (R), Lymphadenopathy (L), Stiff neck Respiratory: positive: No respiratory distress. negative: Wheezes, Rales, Rhonchi Cardiovascular: positive: Regular rate & rhythm. negative: Gallop/S4, Friction rub Abdomen: positive: Non-tender, Nml bowel sounds, No distention, Other (hugely obese panus and unable to assess for organomegaly) Skin: positive: Warm, Dry Extremities: positive: Full ROM, Pedal edema Neurologic/Psychiatric: positive: Oriented x3, CN's nml (2-12), Motor nml (but his size impedes ease of mobility) - Lab Results Fish Bones: 09/04/21 04:06 09/04/21 04:06 Other Labs: Lab Results x24hrs 09/06/21 09/06/21 09/06/21 Range/Units 12:09 08:09 06:13 POC Whole Bld Glucose 121 H 111 H 112 H (70 - 100) mg/dL 09/05/21 Range/Units 20:33 POC Whole Bld Glucose 152 H (70 - 100) mg/dL ABX Reporting Has patient been on IV antibiotics over the past 48 hours?: No Assessment/Plan - Problem List (1) Acute on chronic respiratory failure with hypoxia and hypercapnia Impression: Acute has resolved and chronic remains. We continue to look to obtain trilogy through Medicare but have found out today he doesn't have Medicare. We are hopeful this will be set up this week. Unfortunately the noninvasive ventilator is backordered so this can take a few days. Once he has this then he can be discharged to assisted living. That is our plan as he is now voicing a desire to go home. His son has spoke to SW and disagrees. He feels his father will only regress again. The [facility] is asking for Covid vaccine and I will order that. (2) Obesity hypoventilation syndrome Impression: This is the cause of his acute on chronic hypercapnic and hypoxic respiratory failure. It is felt that this point time, on noninvasive ventilator is required to reduce hospitalization and improve the patient's health. BiPAP is considered but it is felt that it is not effective. I am ordering home noninvasive and later to treat the patient's chronic respiratory failure. (3) Anasarca Impression: This is ongoing but improved. He is now on oral Lasix. (4) Chronic venous stasis dermatitis of both lower extremities Impression: This is chronic. We are continuing to diurese him to assist with the edema and dressing changes. (5) Mild aortic stenosis Impression: Chronic and stable. He will need outpatient follow-up. (6) Controlled type 2 diabetes mellitus without complication, with long-term current use of insulin Impression: His blood glucose is well controlled on the current insulin regimen which we will continue.Glucose yesterday was ninety-five, 165, 133, and 152. Today he is 111 and 121 so far. (7) Self neglect Impression: He is not a safe discharge home alone given his self-neglect. He has been noncompliant with his CPAP and cannot care for himself. The plan is to get him to assisted living once we can set up trilogy as he no longer requires a SNF.
[2021-09-06] MEDS ORDERED: [UNRECOGNIZED DRUG - OTHER] IM ONE (17:06)
[2021-09-06] MEDS ORDERED: COVID-19 VAC,AD26(JANSSEN)/PF 0.5 ML SYRINGE IM ONE (18:00)
[2021-09-06] MEDS: ATORVASTATIN 40 MG TABLET PO SCH (20:53)
[2021-09-06] MEDS: SODIUM CHLORIDE FLUSH 0.9% 10 ML SYRINGE IVP PRN (20:54)
[2021-09-07] MEDS: INSULIN GLARGINE 300 UNIT/3 ML PEN SUBQ SCH ×2 (05:50→18:33)
[2021-09-07] MEDS: ENOXAPARIN 40 MG/0.4 ML SYRINGE SUBQ SCH ×2 (08:35→20:17)
[2021-09-07] MEDS: TAMSULOSIN 0.4 MG CAPSULE PO SCH (09:12)
[2021-09-07] MEDS: CHOLECALCIFEROL 25 MCG TABLET PO SCH (09:12)
[2021-09-07] MEDS: SENNA 8.6 MG TABLET PO SCH (09:13)
[2021-09-07] MEDS: LOSARTAN 50 MG TABLET PO SCH (09:13)
[2021-09-07] MEDS: DOCUSATE SODIUM 250 MG CAPSULE PO SCH (09:13)
[2021-09-07] MEDS: SERTRALINE 50 MG TABLET PO SCH (09:13)
[2021-09-07] MEDS: FUROSEMIDE 40 MG TABLET PO SCH (09:13)
[2021-09-07] MEDS: INSULIN ASPART 300 UNIT/3 ML PEN SUBQ SCH ×7 (09:14→20:17)
[2021-09-07] MEDS: NYSTATIN POWDER 15 GM TOP SCH ×2 (09:19→20:17)
[2021-09-07] MEDS: polyethylene glycoL 3350 17 GM PACKET PO SCH (09:20)
--- NOTE | 2021-09-07 10:53 | PROVIDER PROGRESS NOTE ---
Subjective - Prog Note Date Prog Note Date: 09/07/21 Prog Note Time: 10:49 - Subjective Pt reports feeling: Improved Subjective: Joce is eager to go home as we await the arrival of his trilogy machine. Despite his history of self neglect, he feels that he is able to care for himself now. He expresses that he has a better understanding of his breathing devices since hospitalization and thinks this will be a "game changer" for him. The plan is for Joce to be discharged to home with a trilogy ventilator and home caretakers until he is able to go to the OR home. He received the [employer] COVID vaccine yesterday. Current Medications - Current Medications Current Medications: Active Medications Acetaminophen (Acetaminophen 325 Mg Tablet) 650 mg PO Q4HR PRN PRN Reason: Pain 1 to 4 Last Admin: 09/03/21 10:15 Dose: 650 mg Documented by: Atorvastatin Calcium (Atorvastatin 40 Mg Tablet) 80 mg PO QPM [facility] Last Admin: 09/06/21 20:53 Dose: 80 mg Documented by: Cholecalciferol (Cholecalciferol 25 Mcg Tablet) 50 mcg PO DAILY [facility] Last Admin: 09/07/21 09:12 Dose: 50 mcg Documented by: Docusate Sodium (Docusate Sodium 250 Mg Capsule) 250 - 500 mg PO DAILY [facility] Last Admin: 09/07/21 09:13 Dose: 250 mg Documented by: Enoxaparin Sodium (Enoxaparin 40 Mg/0.4 Ml Syringe) 40 mg SUBQ BID [facility] Last Admin: 09/07/21 08:35 Dose: 40 mg Documented by: Furosemide (Furosemide 40 Mg Tablet) 40 mg PO DAILY [facility] Last Admin: 09/07/21 09:13 Dose: 40 mg Documented by: Insulin Aspart (Insulin Aspart 300 Unit/3 Ml Pen) 3 - 11 unit SUBQ 0800, 1200,1700,2100 [facility]; Protocol Last Admin: 09/07/21 09:17 Dose: Not Given Documented by: Insulin Aspart (Insulin Aspart 300 Unit/3 Ml Pen) 9 unit SUBQ TIDWM [facility] Last Admin: 09/07/21 09:14 Dose: 9 unit Documented by: Insulin Glargine (Insulin Glargine 300 Unit/3 Ml Pen) 30 unit SUBQ 0600,1800 [facility] Last Admin: 09/07/21 05:50 Dose: 30 unit Documented by: Losartan Potassium (Losartan 50 Mg Tablet) 100 mg PO DAILY [facility] Last Admin: 09/07/21 09:13 Dose: 100 mg Documented by: Mineral Oil (Min Oil/Dimethicon/Coconut Oil 92 Gm Tube) 1 applic TOP PRN PRN PRN Reason: Skin Care Last Admin: 08/31/21 10:26 Dose: 1 applic Documented by: Multi-Ingredient Ointment (Zinc Oxide 20% Oint 30 Gm Tube) 1 applic TOP PRN PRN PRN Reason: Skin Care Nystatin (Nystatin Powder 15 Gm) 1 applic TOP BID [facility] Last Admin: 09/07/21 09:19 Dose: 1 applic Documented by: Ondansetron HCl (Ondansetron Odt 4 Mg Tablet) 4 mg TL Q6HR PRN PRN Reason: Nausea / Vomiting Ondansetron HCl (Ondansetron 4 Mg/2 Ml Vial) 4 mg IVP Q6HR PRN PRN Reason: Nausea / Vomiting Oxycodone HCl (Oxycodone 5 Mg Tablet) 5 mg PO Q4HR PRN PRN Reason: Pain 5 to 7 Last Admin: 09/03/21 19:48 Dose: 5 mg Documented by: Polyethylene Glycol (Polyethylene Glycol 3350 17 Gm Packet) 17 gm PO DAILY [facility] Last Admin: 09/07/21 09:20 Dose: Not Given Documented by: Senna (Senna 8.6 Mg Tablet) 8.6 - 17.2 mg PO DAILY [facility] Last Admin: 09/07/21 09:13 Dose: 8.6 mg Documented by: Sertraline HCl (Sertraline 50 Mg Tablet) 200 mg PO DAILY [facility] Last Admin: 09/07/21 09:13 Dose: 200 mg Documented by: Sodium Chloride (Sodium Chloride Flush 0.9% 10 Ml Syringe) 10 ml IVP PRN PRN PRN Reason: NEEDED PER PROVIDER ORDERS Last Admin: 09/06/21 20:54 Dose: 10 ml Documented by: Tamsulosin HCl (Tamsulosin 0.4 Mg Capsule) 0.4 mg PO DAILY [facility] Last Admin: 09/07/21 09:12 Dose: 0.4 mg Documented by: Aspirin [Aspir 81] 81 mg PO HS 02/26/14 Atorvastatin Calcium [Lipitor] 80 mg PO DAILY 02/26/14 Insulin Glargine,Hum.rec.anlog [Lantus] 30 unit SUBQ BID 02/26/14 Metformin HCl [Fortamet] 1,000 mg PO BID 12/31/20 Tamsulosin [Flomax] 0.8 mg PO QPM 12/31/20 Insulin Aspart [NovoLOG] 4 units SUBQ TIDWM 01/12/21 Empagliflozin [Jardiance] 12.5 mg PO DAILY 08/12/21 Furosemide [Lasix] 40 mg PO DAILY 08/12/21 Losartan Potassium [Cozaar] 100 mg PO DAILY 08/12/21 Sertraline HCl 200 mg PO DAILY 08/12/21 Objective - Vital Signs/Intake & Output Reviewed Vital Signs: Yes Vital Signs: Vital Signs x48h Pulse Pulse Resp BP Pulse Ox 09/07/21 08:00 53 L 20 138/61 H 96 09/07/21 06:12 48 L 09/07/21 04:08 62 19 142/60 H 96 Intake & Output: Intake & Output 09/04/21 09/05/21 09/06/21 09/07/21 23:59 23:59 23:59 23:59 Intake Total 820 1160 540 Output Total 700 575 500 Balance 120 585 40 - Objective General Appearance: positive: No acute distress, Alert, Other (Morbidly obese) Eyes Bilateral: positive: PERRL, EOMI ENT: positive: No signs of dehydration Neck: positive: No JVD, Lymphadenopathy (R), Lymphadenopathy (L). negative: Stiff neck Respiratory: positive: Chest non-tender, No respiratory distress. negative: Wheezes, Rales, Rhonchi Cardiovascular: positive: Regular rate & rhythm. negative: No murmur, No gallop, Friction rub Abdomen: positive: Non-tender, Nml bowel sounds, No distention, Other (Due to patient's size, unable to assess for organomegaly) Skin: positive: No rash, Warm, Dry Extremities: positive: Pedal edema. negative: Calf tenderness Neurologic/Psychiatric: positive: Oriented x3, CN's nml (2-12), Motor nml (but size impedes mobilitiy) - Lab Results Fish Bones: 09/04/21 04:06 09/04/21 04:06 Other Labs: Lab Results x24hrs 09/07/21 09/06/21 09/06/21 Range/Units 05:46 20:49 17:07 POC Whole Bld Glucose 121 H 137 H 154 H (70 - 100) mg/dL 09/06/21 Range/Units 12:09 POC Whole Bld Glucose 121 H (70 - 100) mg/dL Assessment/Plan - Problem List (1) Acute on chronic respiratory failure with hypoxia and hypercapnia Impression: Acute has resolved and chronic remains. We continue to look to obtain trilogy through Medicare but have found out today he doesn't have Medicare. We are hopeful this will be set up this week. Unfortunately the noninvasive ventilator is backordered so this can take a few days. Once he has this then he can be discharged to home with analytical research program manager support [facility]. That is our plan as he is now voicing a desire to go home. His son has spoke to and disagrees. He feels his father will only regress again. He received the [employer] COVID vaccine yesterday in compliance with the OR home. (2) Obesity hypoventilation syndrome Impression: This is the cause of his acute on chronic hypercapnic and hypoxic respiratory failure. It is felt that this point time, on noninvasive ventilator is required to reduce hospitalization and improve the patient's health. BiPAP is considered but it is felt that it is not effective. I am ordering home noninvasive and later to treat the patient's chronic respiratory failure. (3) Anasarca Impression: This is ongoing but improved. He is now on oral Lasix. (4) Chronic venous stasis dermatitis of both lower extremities Impression: This is chronic. We are continuing to diurese him to assist with the edema and dressing changes. (5) Mild aortic stenosis Impression: Chronic and stable. He will need outpatient follow-up. (6) Controlled type 2 diabetes mellitus without complication, with long-term current use of insulin Impression: His blood glucose is well controlled on the current insulin regimen which we will continue. Glucose yesterday was ninety-five, 165, 133, and 152. Today he is 111 and 121 so far. (7) Self neglect Impression: He is not a safe discharge home alone given his self-neglect. He has been noncompliant with his CPAP and cannot care for himself. The plan is to get him to assisted living once we can set up trilogy as he no longer requires a SNF.
[2021-09-07] MEDS: ATORVASTATIN 40 MG TABLET PO SCH (20:17)
[2021-09-07] MEDS: SODIUM CHLORIDE FLUSH 0.9% 10 ML SYRINGE IVP PRN (20:18)
[2021-09-07] MEDS: ACETAMINOPHEN 325 MG TABLET PO PRN (20:18)
[2021-09-08] MEDS: INSULIN GLARGINE 300 UNIT/3 ML PEN SUBQ SCH ×2 (06:14→17:54)
[2021-09-08] MEDS: SODIUM CHLORIDE FLUSH 0.9% 10 ML SYRINGE IVP PRN ×2 (06:14→14:07)
[2021-09-08] MEDS: INSULIN ASPART 300 UNIT/3 ML PEN SUBQ SCH ×7 (08:13→20:04)
[2021-09-08] MEDS: TAMSULOSIN 0.4 MG CAPSULE PO SCH (08:31)
[2021-09-08] MEDS: SENNA 8.6 MG TABLET PO SCH (08:31)
[2021-09-08] MEDS: CHOLECALCIFEROL 25 MCG TABLET PO SCH (08:32)
[2021-09-08] MEDS: SERTRALINE 50 MG TABLET PO SCH (08:32)
[2021-09-08] MEDS: FUROSEMIDE 40 MG TABLET PO SCH (08:33)
[2021-09-08] MEDS: LOSARTAN 50 MG TABLET PO SCH (08:33)
[2021-09-08] MEDS: polyethylene glycoL 3350 17 GM PACKET PO SCH (08:35)
[2021-09-08] MEDS: ENOXAPARIN 40 MG/0.4 ML SYRINGE SUBQ SCH ×2 (09:30→21:08)
[2021-09-08] MEDS: NYSTATIN POWDER 15 GM TOP SCH ×2 (09:31→21:08)
[2021-09-08] MEDS: DOCUSATE SODIUM 250 MG CAPSULE PO SCH (09:40)
--- NOTE | 2021-09-08 10:33 | PROVIDER PROGRESS NOTE ---
Subjective - Prog Note Date Prog Note Date: 09/08/21 Prog Note Time: 10:31 - Subjective Subjective: The [facility] respiratory therapy [facility], Anastacia is point of contact, is working with our respiratory therapy department to get this gentleman his trilogy. Toan herrera states that Mr. Ambriz is well-known to their service. She is dubious he will be compliant. And her fears that he will go home, and bounce back because of his noncompliance. I shared these fears with Mr. Ambriz. I explained to him that his past behavior has led us to have not much trust in his ability to follow through. But he is adamant that he wants to prove was wrong. He will use his trilogy. He will hire somebody to take care of him 3 days a week, and his son will come the other days of the week. He says this is only a temporary arrangement until the [facility] can find him a permanent assisted living facility for him to move into versus a SNF to move into. He is still eager to go home. We are just waiting for the trilogy mask to arrive once our respiratory therapy has coordinated with the [facility] respiratory therapy. Current Medications - Current Medications Current Medications: Active Medications Acetaminophen (Acetaminophen 325 Mg Tablet) 650 mg PO Q4HR PRN PRN Reason: Pain 1 to 4 Last Admin: 09/07/21 20:18 Dose: 650 mg Documented by: Atorvastatin Calcium (Atorvastatin 40 Mg Tablet) 80 mg PO QPM [facility] Last Admin: 09/07/21 20:17 Dose: 80 mg Documented by: Cholecalciferol (Cholecalciferol 25 Mcg Tablet) 50 mcg PO DAILY [facility] Last Admin: 09/08/21 08:32 Dose: 50 mcg Documented by: Docusate Sodium (Docusate Sodium 250 Mg Capsule) 250 - 500 mg PO DAILY [facility] Last Admin: 09/08/21 09:40 Dose: 250 mg Documented by: Enoxaparin Sodium (Enoxaparin 40 Mg/0.4 Ml Syringe) 40 mg SUBQ BID [facility] Last Admin: 09/08/21 09:30 Dose: 40 mg Documented by: Furosemide (Furosemide 40 Mg Tablet) 40 mg PO DAILY [facility] Last Admin: 09/08/21 08:33 Dose: 40 mg Documented by: Insulin Aspart (Insulin Aspart 300 Unit/3 Ml Pen) 3 - 11 unit SUBQ 0800,1200,1700,2100 [facility]; Protocol Last Admin: 09/08/21 08:29 Dose: Not Given Documented by: Insulin Aspart (Insulin Aspart 300 Unit/3 Ml Pen) 9 unit SUBQ TIDWM [facility] Last Admin: 09/08/21 08:13 Dose: 9 unit Documented by: Insulin Glargine (Insulin Glargine 300 Unit/3 Ml Pen) 30 unit SUBQ 0600,1800 [facility] Last Admin: 09/08/21 06:14 Dose: 30 unit Documented by: Losartan Potassium (Losartan 50 Mg Tablet) 100 mg PO DAILY [facility] Last Admin: 09/08/21 08:33 Dose: 100 mg Documented by: Mineral Oil (Min Oil/Dimethicon/Coconut Oil 92 Gm Tube) 1 applic TOP PRN PRN PRN Reason: Skin Care Last Admin: 08/31/21 10:26 Dose: 1 applic Documented by: Multi-Ingredient Ointment (Zinc Oxide 20% Oint 30 Gm Tube) 1 applic TOP PRN PRN PRN Reason: Skin Care Last Admin: 09/08/21 06:29 Dose: 1 applic Documented by: Nystatin (Nystatin Powder 15 Gm) 1 applic TOP BID [facility] Last Admin: 09/08/21 09:31 Dose: 1 applic Documented by: Ondansetron HCl (Ondansetron Odt 4 Mg Tablet) 4 mg TL Q6HR PRN PRN Reason: Nausea / Vomiting Ondansetron HCl (Ondansetron 4 Mg/2 Ml Vial) 4 mg IVP Q6HR PRN PRN Reason: Nausea / Vomiting Oxycodone HCl (Oxycodone 5 Mg Tablet) 5 mg PO Q4HR PRN PRN Reason: Pain 5 to 7 Last Admin: 09/03/21 19:48 Dose: 5 mg Documented by: Polyethylene Glycol (Polyethylene Glycol 3350 17 Gm Packet) 17 gm PO DAILY [facility] Last Admin: 09/08/21 08:35 Dose: 17 gm Documented by: Senna (Senna 8.6 Mg Tablet) 8.6 - 17.2 mg PO DAILY [facility] Last Admin: 09/08/21 08:31 Dose: 8.6 mg Documented by: Sertraline HCl (Sertraline 50 Mg Tablet) 200 mg PO DAILY [facility] Last Admin: 09/08/21 08:32 Dose: 200 mg Documented by: Sodium Chloride (Sodium Chloride Flush 0.9% 10 Ml Syringe) 10 ml IVP PRN PRN PRN Reason: NEEDED PER PROVIDER ORDERS Last Admin: 09/08/21 06:14 Dose: 10 ml Documented by: Tamsulosin HCl (Tamsulosin 0.4 Mg Capsule) 0.4 mg PO DAILY [facility] Last Admin: 09/08/21 08:31 Dose: 0.4 mg Documented by: Aspirin [Aspir 81] 81 mg PO HS 02/26/14 Atorvastatin Calcium [Lipitor] 80 mg PO DAILY 02/26/14 Insulin Glargine,Hum.rec.anlog [Lantus] 30 unit SUBQ BID 02/26/14 Metformin HCl [Fortamet] 1,000 mg PO BID 12/31/20 Tamsulosin [Flomax] 0.8 mg PO QPM 12/31/20 Insulin Aspart [NovoLOG] 4 units SUBQ TIDWM 01/12/21 Empagliflozin [Jardiance] 12.5 mg PO DAILY 08/12/21 Furosemide [Lasix] 40 mg PO DAILY 08/12/21 Losartan Potassium [Cozaar] 100 mg PO DAILY 08/12/21 Sertraline HCl 200 mg PO DAILY 08/12/21 Objective - Vital Signs/Intake & Output Reviewed Vital Signs: Yes Vital Signs: Vital Signs x48h Pulse 09/08/21 05:20 58 L Intake & Output: Intake & Output 09/05/21 09/06/21 09/07/21 09/08/21 23:59 23:59 23:59 23:59 Intake Total 820 1160 1090 650 Output Total 700 575 750 275 Balance 120 585 340 375 - Objective General Appearance: positive: Alert, Other (Pleasant, morbidly obese white male, disheveled, sitting in his chair in ICU. Watching TV. Eating of 200% of his meals. 5 foot 8 inches tall, 149.5 kg) Eyes Bilateral: positive: PERRL, EOMI ENT: positive: No signs of dehydration Neck: positive: No JVD. negative: Stiff neck Respiratory: positive: No respiratory distress, Other (His breath sounds are actually quite quiet for the most part. But today I am hearing better air movement than before). negative: Wheezes, Rales, Rhonchi Cardiovascular: positive: Regular rate & rhythm. negative: Gallop/S4, Friction rub Abdomen: positive: Other (Usually obese pannus, nontender. Very difficult to assess for any organomegaly due to the size of the pannus. Normal bowel sounds. Nontender.) Skin: positive: Warm, Dry Extremities: positive: Full ROM, No pedal edema Neurologic/Psychiatric: positive: Oriented x3, CN's nml (2-12), Motor nml (Can stand independently. Wears a portable tank to walk. Uses a front wheel walker and can walk 125 feet. He has right knee pain with right leg weightbearing. Needed to be prompted about how to go up and down stairs correctly because of this knee pain. Good balance. Independent with all transfe) - Lab Results Fish Bones: 09/04/21 04:06 09/04/21 04:06 Other Labs: Lab Results x24hrs 09/08/21 09/07/21 09/07/21 Range/Units 06:08 20:11 17:06 POC Whole Bld Glucose 103 H 148 H 102 H (70 - 100) mg/dL 09/07/21 09/07/21 Range/Units 11:28 08:34 POC Whole Bld Glucose 185 H 117 H (70 - 100) mg/dL Assessment/Plan - Problem List (1) Acute on chronic respiratory failure with hypoxia and hypercapnia Impression: Acute has resolved and chronic remains. We looked to obtain trilogy through Medicare found out 09/06 he doesn't have Medicare. We are hopeful this will be set up this week thru the [facility] system instead. Unfortunately the noninvasive ventilator is backordered so this can take a few days. Once he has this then he can be discharged to home with medical authorization specialist support and then will move into the [facility] facility. That is our plan as he is now voicing a desire to go home. His son has spoken to and disagrees. He feels his father will only regress again. WE agree with the son and the [facility] states the same worry. But the patient himself wants to go home. Promises to be compliant. He received the [employer] COVID vaccine 09/06 to be [facility]. (2) Obesity hypoventilation syndrome Impression: This is the cause of his acute on chronic hypercapnic and hypoxic respiratory failure. It is felt that this point time, a noninvasive ventilator is required to reduce hospitalization and improve the patient's health. BiPAP is considered but it is felt that it is not effective. I am ordering home noninvasive and later to treat the patient's chronic respiratory failure. (3) Anasarca Impression: This is ongoing but improved. He is now on oral Lasix. (4) Chronic venous stasis dermatitis of both lower extremities Impression: This is chronic. We are continuing to diurese him to assist with the edema and dressing changes. (5) Mild aortic stenosis Impression: Chronic and stable. He will need outpatient follow-up. (6) Controlled type 2 diabetes mellitus without complication, with long-term current use of insulin Impression: His blood glucose is well controlled on the current insulin regimen which we will continue. Glucose yesterday 121, 117, 185, 102, 148. This morning he is 103 (7) Self neglect Impression: He is not a safe discharge home alone given his self-neglect. He has been noncompliant with his CPAP and cannot care for himself. . He states that he now recognizes the need for compliance and the use of the correct face mask. His long-term goal is to go to a half-way facility. Until then, he would like to go home with caregiver support and son support. Son is reluctantly moving in that direction. He has already gotten the caregiver for dad 3 days a week. We are only waiting for the trilogy to get here.
[2021-09-08] MEDS: SODIUM CHLORIDE FLUSH 0.9% 10 ML SYRINGE IVP SCH ×2 (17:02→21:08)
[2021-09-08] MEDS: ATORVASTATIN 40 MG TABLET PO SCH (21:09)
[2021-09-09] MEDS: ACETAMINOPHEN 325 MG TABLET PO PRN ×2 (01:29→10:10)
[2021-09-09] MEDS: INSULIN GLARGINE 300 UNIT/3 ML PEN SUBQ SCH ×2 (06:22→17:29)
[2021-09-09 07:38] LABS: VBG PH 7.334 (7.31-7.41)
[2021-09-09 07:39] LABS: CALCIUM, IONIZED 1.13 mmol/L (1.15-1.33)
[2021-09-09 07:47] LABS: CALCIUM 8.7 mg/dL (8.5-10.3); CREATININE 0.7 mg/dL (0.6-1.2); POTASSIUM 4.4 mmol/L (3.5-5.0)
[2021-09-09 07:56] LABS: MAGNESIUM 2.1 mg/dL (1.7-2.8); PHOSPHORUS 3.7 mg/dL (2.5-4.6)
[2021-09-09] MEDS: INSULIN ASPART 300 UNIT/3 ML PEN SUBQ SCH ×7 (08:13→21:11)
--- NOTE | 2021-09-09 08:45 | PROVIDER PROGRESS NOTE ---
Subjective - Prog Note Date Prog Note Date: 09/09/21 Prog Note Time: 08:45 - Subjective Pt reports feeling: No change Subjective: no new events. he is ambulating to shower, brush teeth, toileting. we are [facility] for [facility]. Pulmonology is reviewing his case the [facility]. Our RT has sent the records there. It's been 2-3 days. Current Medications - Current Medications Current Medications: Active Medications Acetaminophen (Acetaminophen 325 Mg Tablet) 650 mg PO Q4HR PRN PRN Reason: Pain 1 to 4 Last Admin: 09/09/21 01:29 Dose: 650 mg Documented by: Atorvastatin Calcium (Atorvastatin 40 Mg Tablet) 80 mg PO QPM [facility] Last Admin: 09/08/21 21:09 Dose: 80 mg Documented by: Cholecalciferol (Cholecalciferol 25 Mcg Tablet) 50 mcg PO DAILY [facility] Last Admin: 09/08/21 08:32 Dose: 50 mcg Documented by: Docusate Sodium (Docusate Sodium 250 Mg Capsule) 250 - 500 mg PO DAILY [facility] Last Admin: 09/08/21 09:40 Dose: 250 mg Documented by: Enoxaparin Sodium (Enoxaparin 40 Mg/0.4 Ml Syringe) 40 mg SUBQ BID [facility] Last Admin: 09/08/21 21:08 Dose: 40 mg Documented by: Furosemide (Furosemide 40 Mg Tablet) 40 mg PO DAILY [facility] Last Admin: 09/08/21 08:33 Dose: 40 mg Documented by: Insulin Aspart (Insulin Aspart 300 Unit/3 Ml Pen) 3 - 11 unit SUBQ 0800,1200,1700,2100 [facility]; Protocol Last Admin: 09/09/21 08:13 Dose: Not Given Documented by: Insulin Aspart (Insulin Aspart 300 Unit/3 Ml Pen) 9 unit SUBQ TIDWM [facility] Last Admin: 09/09/21 08:14 Dose: 9 unit Documented by: Insulin Glargine (Insulin Glargine 300 Unit/3 Ml Pen) 30 unit SUBQ 0600,1800 [facility] Last Admin: 09/09/21 06:22 Dose: 30 unit Documented by: Losartan Potassium (Losartan 50 Mg Tablet) 100 mg PO DAILY [facility] Last Admin: 09/08/21 08:33 Dose: 100 mg Documented by: Mineral Oil (Min Oil/Dimethicon/Coconut Oil 92 Gm Tube) 1 applic TOP PRN PRN PRN Reason: Skin Care Last Admin: 08/31/21 10:26 Dose: 1 applic Documented by: Multi-Ingredient Ointment (Zinc Oxide 20% Oint 30 Gm Tube) 1 applic TOP PRN PRN PRN Reason: Skin Care Last Admin: 09/08/21 06:29 Dose: 1 applic Documented by: Nystatin (Nystatin Powder 15 Gm) 1 applic TOP BID [facility] Last Admin: 09/08/21 21:08 Dose: 1 applic Documented by: Ondansetron HCl (Ondansetron Odt 4 Mg Tablet) 4 mg TL Q6HR PRN PRN Reason: Nausea / Vomiting Ondansetron HCl (Ondansetron 4 Mg/2 Ml Vial) 4 mg IVP Q6HR PRN PRN Reason: Nausea / Vomiting Oxycodone HCl (Oxycodone 5 Mg Tablet) 5 mg PO Q4HR PRN PRN Reason: Pain 5 to 7 Last Admin: 09/03/21 19:48 Dose: 5 mg Documented by: Polyethylene Glycol (Polyethylene Glycol 3350 17 Gm Packet) 17 gm PO DAILY [facility] Last Admin: 09/08/21 08:35 Dose: 17 gm Documented by: Senna (Senna 8.6 Mg Tablet) 8.6 - 17.2 mg PO DAILY [facility] Last Admin: 09/08/21 08:31 Dose: 8.6 mg Documented by: Sertraline HCl (Sertraline 50 Mg Tablet) 200 mg PO DAILY [facility] Last Admin: 09/08/21 08:32 Dose: 200 mg Documented by: Sodium Chloride (Sodium Chloride Flush 0.9% 10 Ml Syringe) 10 ml IVP PRN PRN PRN Reason: NEEDED PER PROVIDER ORDERS Last Admin: 09/08/21 14:07 Dose: 10 ml Documented by: Sodium Chloride (Sodium Chloride Flush 0.9% 10 Ml Syringe) 10 ml IVP 0100,0900,1700 [facility] Last Admin: 09/08/21 21:08 Dose: 10 ml Documented by: Tamsulosin HCl (Tamsulosin 0.4 Mg Capsule) 0.4 mg PO DAILY [facility] Last Admin: 09/08/21 08:31 Dose: 0.4 mg Documented by: Aspirin [Aspir 81] 81 mg PO HS 02/26/14 Atorvastatin Calcium [Lipitor] 80 mg PO DAILY 02/26/14 Insulin Glargine,Hum.rec.anlog [Lantus] 30 unit SUBQ BID 02/26/14 Metformin HCl [Fortamet] 1,000 mg PO BID 12/31/20 Tamsulosin [Flomax] 0.8 mg PO QPM 12/31/20 Insulin Aspart [NovoLOG] 4 units SUBQ TIDWM 01/12/21 Empagliflozin [Jardiance] 12.5 mg PO DAILY 08/12/21 Furosemide [Lasix] 40 mg PO DAILY 08/12/21 Losartan Potassium [Cozaar] 100 mg PO DAILY 08/12/21 Sertraline HCl 200 mg PO DAILY 08/12/21 Objective - Vital Signs/Intake & Output Reviewed Vital Signs: Yes Vital Signs: Vital Signs x48h Temp Pulse Pulse Resp BP BP Pulse Ox 09/09/21 06:55 67 09/09/21 05:30 63 09/09/21 04:17 36.1 C L 65 18 147/62 H 97 09/09/21 02:30 55 L 09/09/21 01:30 36.5 C 59 L 20 141/52 H 98 Intake & Output: Intake & Output 09/06/21 09/07/21 09/08/21 09/09/21 23:59 23:59 23:59 23:59 Intake Total 1160 1090 1740 Output Total 370 985 4951 325 Balance 585 340 590 -325 - Objective General Appearance: positive: No acute distress, Alert, Other ( super morbidly obese white, just waking up with mask still on.) Eyes Bilateral: positive: PERRL ENT: positive: No signs of dehydration Neck: negative: Stiff neck Respiratory: positive: No respiratory distress. negative: Wheezes, Rales, Rhonchi Cardiovascular: positive: Regular rate & rhythm. negative: Gallop/S4, Friction rub Abdomen: positive: Non-tender, Nml bowel sounds, No distention, Other (super obese, large abdominal panus) Skin: positive: Warm, Dry Extremities: positive: Full ROM, No pedal edema (but has thick, non pitting ankles) Neurologic/Psychiatric: positive: Oriented x3, CN's nml (2-12), Motor nml - Lab Results Fish Bones: 09/04/21 04:06 09/09/21 07:26 Other Labs: Lab Results x24hrs 09/09/21 09/09/21 09/09/21 Range/Units 07:53 07:26 07:26 VBG pH 7.334 (7.31-7.41) Ionized Calcium 1.13 L (1.15-1.33) mmol/L Sodium (135-145) mmol/L Potassium (3.5-5.0) mmol/L Chloride (101-111) mmol/L Carbon Dioxide (21-32) mmol/L Anion Gap (6-13) BUN (6-20) mg/dL Creatinine (0.6-1.2) mg/dL Estimated GFR (MDRD) (>89) Glucose (70-100) mg/dL POC Whole Bld Glucose 118 H (70 - 100) mg/dL Calcium (8.5-10.3) mg/dL Phosphorus 3.7 (2.5-4.6) mg/dL Magnesium 2.1 (1.7-2.8) mg/dL 09/09/21 09/09/21 09/08/21 Range/Units 07:26 06:06 19:52 VBG pH (7.31-7.41) Ionized Calcium (1.15-1.33) mmol/L Sodium 140 (135-145) mmol/L Potassium 4.4 (3.5-5.0) mmol/L Chloride 93 L (101-111) mmol/L Carbon Dioxide 39 H* (21-32) mmol/L Anion Gap 8.0 (6-13) BUN 20 (6-20) mg/dL Creatinine 0.7 (0.6-1.2) mg/dL Estimated GFR (MDRD) 112 (>89) Glucose 131 H (70-100) mg/dL POC Whole Bld Glucose 104 H 122 H (70 - 100) mg/dL Calcium 8.7 (8.5-10.3) mg/dL Phosphorus (2.5-4.6) mg/dL Magnesium (1.7-2.8) mg/dL 09/08/21 09/08/21 Range/Units 16:24 12:19 VBG pH (7.31-7.41) Ionized Calcium (1.15-1.33) mmol/L Sodium (135-145) mmol/L Potassium (3.5-5.0) mmol/L Chloride (101-111) mmol/L Carbon Dioxide (21-32) mmol/L Anion Gap (6-13) BUN (6-20) mg/dL Creatinine (0.6-1.2) mg/dL Estimated GFR (MDRD) (>89) Glucose (70-100) mg/dL POC Whole Bld Glucose 132 H 159 H (70 - 100) mg/dL Calcium (8.5-10.3) mg/dL Phosphorus (2.5-4.6) mg/dL Magnesium (1.7-2.8) mg/dL Assessment/Plan - Problem List (1) Chronic respiratory failure with hypoxia and hypercapnia Impression: No changes as we wait for his trilogy. Nonbillable rounding. Acute has resolved and chronic remains. We looked to obtain trilogy through Medicare found out 09/06 he doesn't have Medicare. We are hopeful this will be set up this week thru the [place] system instead. Unfortunately the noninvasive ventilator is backordered so this can take a few days. Once he has this then he can be discharged to home with land inspector support and then will move into the [facility] facility. That is our plan as he is now voicing a desire to go home. His son has spoken to and disagrees. He feels his father will only regress again. WE agree with the son and the [facility] states the same worry. But the patient himself wants to go home. Promises to be compliant. He received the [employer] COVID vaccine 09/06 to be [facility]. (2) Obesity hypoventilation syndrome Impression: This is the cause of his acute on chronic hypercapnic and hypoxic respiratory failure. It is felt that this point time, a noninvasive ventilator is required to reduce hospitalization and improve the patient's health. BiPAP is considered but it is felt that it is not effective. I am ordering home noninvasive and later to treat the patient's chronic respiratory failure. (3) Anasarca Impression: This is ongoing but improved. He is now on oral Lasix. (4) Chronic venous stasis dermatitis of both lower extremities Impression: This is chronic. We are continuing to diurese him to assist with the edema and dressing changes. (5) Mild aortic stenosis Impression: Chronic and stable. He will need outpatient follow-up. (6) Controlled type 2 diabetes mellitus without complication, with long-term c urrent use of insulin Impression: His blood glucose is well controlled on the current insulin regimen which we will continue. (7) Self neglect Impression: He is not a safe discharge home alone given his self-neglect. He has been nonc ompliant with his CPAP and cannot care for himself. . He states that he now recognizes the need for compliance and the use of the correct face mask. His long-term goal is to go to a alf facility. Until then, he would like to go home with caregiver support and son support. Son is reluctantly moving in that direction. He has already gotten the caregiver for dad 3 days a week. We are only waiting for the trilogy to get here.
[2021-09-09] MEDS: SENNA 8.6 MG TABLET PO SCH (10:19)
[2021-09-09] MEDS: LOSARTAN 50 MG TABLET PO SCH (10:20)
[2021-09-09] MEDS: CHOLECALCIFEROL 25 MCG TABLET PO SCH (10:20)
[2021-09-09] MEDS: TAMSULOSIN 0.4 MG CAPSULE PO SCH (10:20)
[2021-09-09] MEDS: FUROSEMIDE 40 MG TABLET PO SCH (10:21)
[2021-09-09] MEDS: ENOXAPARIN 40 MG/0.4 ML SYRINGE SUBQ SCH ×2 (10:21→21:11)
[2021-09-09] MEDS: SERTRALINE 50 MG TABLET PO SCH (10:21)
[2021-09-09] MEDS: DOCUSATE SODIUM 250 MG CAPSULE PO SCH (10:21)
[2021-09-09] MEDS: polyethylene glycoL 3350 17 GM PACKET PO SCH (10:22)
[2021-09-09] MEDS: SODIUM CHLORIDE FLUSH 0.9% 10 ML SYRINGE IVP SCH ×2 (10:22→17:30)
[2021-09-09] MEDS: NYSTATIN POWDER 15 GM TOP SCH ×2 (10:36→21:12)
[2021-09-09] MEDS: ATORVASTATIN 40 MG TABLET PO SCH (21:11)
[2021-09-10] MEDS: SODIUM CHLORIDE FLUSH 0.9% 10 ML SYRINGE IVP SCH ×3 (03:13→17:56)
[2021-09-10 05:17] LABS: CALCIUM, IONIZED 1.16 mmol/L (1.15-1.33); VBG PH 7.299 (7.31-7.41)
[2021-09-10 05:26] LABS: MAGNESIUM 2.1 mg/dL (1.7-2.8); PHOSPHORUS 3.6 mg/dL (2.5-4.6)
[2021-09-10] MEDS: INSULIN GLARGINE 300 UNIT/3 ML PEN SUBQ SCH ×2 (05:33→17:55)
--- NOTE | 2021-09-10 08:02 | PROVIDER PROGRESS NOTE ---
Subjective - Prog Note Date Prog Note Date: 09/10/21 Prog Note Time: 08:02 - Subjective Pt reports feeling: No change Subjective: Symptoms needs encouragement to get up out of bed to go to the bathroom. He prefers that the nurses hold the urinal for him. But he is able to get up to go to the bathroom, brushes teeth, toilet, etc. Is just hard for him to get out of bed. He is eating his food. He is patiently waiting for that trilogy to get here from the [place]. Current Medications - Current Medications Current Medications: Active Medications Acetaminophen (Acetaminophen 325 Mg Tablet) 650 mg PO Q4HR PRN PRN Reason: Pain 1 to 4 Last Admin: 09/09/21 10:10 Dose: 650 mg Documented by: Atorvastatin Calcium (Atorvastatin 40 Mg Tablet) 80 mg PO QPM [facility] Last Admin: 09/09/21 21:11 Dose: 80 mg Documented by: Cholecalciferol (Cholecalciferol 25 Mcg Tablet) 50 mcg PO DAILY [facility] Last Admin: 09/09/21 10:20 Dose: 50 mcg Documented by: Docusate Sodium (Docusate Sodium 250 Mg Capsule) 250 - 500 mg PO DAILY [facility] Last Admin: 09/09/21 10:21 Dose: 250 mg Documented by: Enoxaparin Sodium (Enoxaparin 40 Mg/0.4 Ml Syringe) 40 mg SUBQ BID [facility] Last Admin: 09/09/21 21:11 Dose: 40 mg Documented by: Furosemide (Furosemide 40 Mg Tablet) 40 mg PO DAILY [facility] Last Admin: 09/09/21 10:21 Dose: 40 mg Documented by: Insulin Aspart (Insulin Aspart 300 Unit/3 Ml Pen) 3 - 11 unit SUBQ 0800,1200,1700,2100 [facility]; Protocol Last Admin: 09/09/21 21:11 Dose: 3 unit Documented by: Insulin Aspart (Insulin Aspart 300 Unit/3 Ml Pen) 9 unit SUBQ TIDWM [facility] Last Admin: 09/09/21 17:28 Dose: 9 unit Documented by: Insulin Glargine (Insulin Glargine 300 Unit/3 Ml Pen) 30 unit SUBQ 0600,1800 [facility] Last Admin: 09/10/21 05:33 Dose: 30 unit Documented by: Losartan Potassium (Losartan 50 Mg Tablet) 100 mg PO DAILY [facility] Last Admin: 09/09/21 10:20 Dose: 100 mg Documented by: Mineral Oil (Min Oil/Dimethicon/Coconut Oil 92 Gm Tube) 1 applic TOP PRN PRN PRN Reason: Skin Care Last Admin: 08/31/21 10:26 Dose: 1 applic Documented by: Multi-Ingredient Ointment (Zinc Oxide 20% Oint 30 Gm Tube) 1 applic TOP PRN PRN PRN Reason: Skin Care Last Admin: 09/08/21 06:29 Dose: 1 applic Documented by: Nystatin (Nystatin Powder 15 Gm) 1 applic TOP BID [facility] Last Admin: 09/09/21 21:12 Dose: 1 applic Documented by: Ondansetron HCl (Ondansetron Odt 4 Mg Tablet) 4 mg TL Q6HR PRN PRN Reason: Nausea / Vomiting Ondansetron HCl (Ondansetron 4 Mg/2 Ml Vial) 4 mg IVP Q6HR PRN PRN Reason: Nausea / Vomiting Oxycodone HCl (Oxycodone 5 Mg Tablet) 5 mg PO Q4HR PRN PRN Reason: Pain 5 to 7 Last Admin: 09/03/21 19:48 Dose: 5 mg Documented by: Polyethylene Glycol (Polyethylene Glycol 3350 17 Gm Packet) 17 gm PO DAILY [facility] Last Admin: 09/09/21 10:22 Dose: 17 gm Documented by: Senna (Senna 8.6 Mg Tablet) 8.6 - 17.2 mg PO DAILY [facility] Last Admin: 09/09/21 10:19 Dose: 8.6 mg Documented by: Sertraline HCl (Sertraline 50 Mg Tablet) 200 mg PO DAILY [facility] Last Admin: 09/09/21 10:21 Dose: 200 mg Documented by: Sodium Chloride (Sodium Chloride Flush 0.9% 10 Ml Syringe) 10 ml IVP PRN PRN PRN Reason: NEEDED PER PROVIDER ORDERS Last Admin: 09/08/21 14:07 Dose: 10 ml Documented by: Sodium Chloride (Sodium Chloride Flush 0.9% 10 Ml Syringe) 10 ml IVP 0100,0900,1700 [facility] Last Admin: 09/10/21 03:13 Dose: 10 ml Documented by: Tamsulosin HCl (Tamsulosin 0.4 Mg Capsule) 0.4 mg PO DAILY [facility] Last Admin: 09/09/21 10:20 Dose: 0.4 mg Documented by: Aspirin [Aspir 81] 81 mg PO HS 02/26/14 Atorvastatin Calcium [Lipitor] 80 mg PO DAILY 02/26/14 Insulin Glargine,Hum.rec.anlog [Lantus] 30 unit SUBQ BID 02/26/14 Metformin HCl [Fortamet] 1,000 mg PO BID 12/31/20 Tamsulosin [Flomax] 0.8 mg PO QPM 12/31/20 Insulin Aspart [NovoLOG] 4 units SUBQ TIDWM 01/12/21 Empagliflozin [Jardiance] 12.5 mg PO DAILY 08/12/21 Furosemide [Lasix] 40 mg PO DAILY 08/12/21 Losartan Potassium [Cozaar] 100 mg PO DAILY 08/12/21 Sertraline HCl 200 mg PO DAILY 08/12/21 Objective - Vital Signs/Intake & Output Reviewed Vital Signs: Yes Vital Signs: Vital Signs x48h Temp Pulse Pulse Resp BP BP Pulse Ox 09/10/21 05:00 36.5 C 71 22 127/46 L 94 09/10/21 03:09 61 09/10/21 00:50 36.5 C 69 22 135/50 H 97 Intake & Output: Intake & Output 09/07/21 09/08/21 09/09/21 09/10/21 23:59 23:59 23:59 23:59 Intake Total 1090 1740 840 Output Total 750 1150 650 300 Balance 340 590 190 -300 - Objective General Appearance: positive: Alert, Other (Super obese, white male, sitting up in chair, watching TV. Comfortable.) Eyes Bilateral: positive: PERRL, EOMI ENT: positive: Pharynx nml, No signs of dehydration Neck: positive: No JVD. negative: Stiff neck Respiratory: positive: No respiratory distress, Other (Large barrel chest, overall Diffusely diminished breath sounds. No respiratory distress). negative: Wheezes, Rales, Rhonchi Cardiovascular: positive: Regular rate & rhythm (With distant cardiac sounds. Stable for him.). negative: Gallop/S4, Friction rub Abdomen: positive: Other (Super obese abdominal pannus, nontender, difficult to assess for any organomegaly because of size, normal bowel sounds) Skin: positive: Warm, Dry Extremities: positive: Full ROM, Pedal edema Neurologic/Psychiatric: positive: Oriented x3 (When he first came in he was obtunded. There has been a marked improvement to a baseline status of normal speech, normal orientation, good historian, interactive), CN's nml (2-12), Motor nml - Lab Results Fish Bones: 09/04/21 04:06 09/10/21 04:32 Other Labs: Lab Results x24hrs 09/10/21 09/10/21 09/10/21 Range/Units 07:50 04:32 04:32 VBG pH 7.299 L (7.31-7.41) Ionized Calcium 1.16 (1.15-1.33) mmol/L Glucose 96 (70-100) mg/dL POC Whole Bld Glucose 102 H (70 - 100) mg/dL Phosphorus (2.5-4.6) mg/dL Magnesium (1.7-2.8) mg/dL 09/10/21 09/09/21 09/09/21 Range/Units 04:32 20:47 16:57 VBG pH (7.31-7.41) Ionized Calcium (1.15-1.33) mmol/L Glucose (70-100) mg/dL POC Whole Bld Glucose 147 H 142 H (70 - 100) mg/dL Phosphorus 3.6 (2.5-4.6) mg/dL Magnesium 2.1 (1.7-2.8) mg/dL 09/09/21 Range/Units 11:22 VBG pH (7.31-7.41) Ionized Calcium (1.15-1.33) mmol/L Glucose (70-100) mg/dL POC Whole Bld Glucose 181 H (70 - 100) mg/dL Phosphorus (2.5-4.6) mg/dL Magnesium (1.7-2.8) mg/dL ABX Reporting Has patient been on IV antibiotics over the past 48 hours?: No Assessment/Plan - Problem List (1) Chronic respiratory failure with hypoxia and hypercapnia Impression: No changes as we wait for his trilogy. Nonbillable rounding. Acute has resolved and chronic remains. We looked to obtain trilogy through Medicare found out 09/06 he doesn't have Medicare. We are [facility]. Unfortunately the noninvasive ventilator is backordered so this can take a few days. Once he has this then he can be discharged to home with lawn caretaker support and then will move into the [place] facility. That is our plan as he is now voicing a desire to go home. His son has spoken to SW and disagrees. He feels his father will only regress again. WE agree with the son and the [facility] states the same worry. But the patient himself wants to go home. Promises to be compliant. He received the [employer] COVID vaccine 09/06 to be [facility] with the [facility]. (2) Obesity hypoventilation syndrome Impression: This is the cause of his acute on chronic hypercapnic and hypoxic respiratory failure. It is felt that this point time, a noninvasive ventilator is required to reduce hospitalization and improve the patient's health. BiPAP is considered but it is felt that it is not effective. I am ordering home noninvasive and later to treat the patient's chronic respiratory failure. (3) Anasarca Impression: This is ongoing but improved. He is now on oral Lasix. (4) Chronic venous stasis dermatitis of both lower extremities Impression: This is chronic. We are continuing to diurese him to assist with the edema and dressing changes. (5) Mild aortic stenosis Impression: Chronic and stable. He will need outpatient follow-up. (6) Controlled type 2 diabetes mellitus without complication, with long-term current use of insulin Impression: His blood glucose is well controlled on the current insulin regimen which we will continue. (7) Self neglect Impression: He is not a safe discharge home alone given his self-neglect. He has been noncompliant with his CPAP and cannot care for himself. . He states that he now recognizes the need for compliance and the use of the correct face mask. His long-term goal is to go to a assisted facility. Until then, he would like to go home with caregiver support and son support. Son is reluctantly mo ving in that direction. He has already gotten the caregiver for dad 3 days a week. The other 4 days a week his son will go by. We are only waiting for the trilogy to get here.
[2021-09-10] MEDS: ACETAMINOPHEN 325 MG TABLET PO PRN (08:46)
[2021-09-10] MEDS: INSULIN ASPART 300 UNIT/3 ML PEN SUBQ SCH ×7 (08:51→20:57)
[2021-09-10] MEDS: TAMSULOSIN 0.4 MG CAPSULE PO SCH (08:52)
[2021-09-10] MEDS: FUROSEMIDE 40 MG TABLET PO SCH (08:53)
[2021-09-10] MEDS: CHOLECALCIFEROL 25 MCG TABLET PO SCH (08:53)
[2021-09-10] MEDS: LOSARTAN 50 MG TABLET PO SCH (08:53)
[2021-09-10] MEDS: SENNA 8.6 MG TABLET PO SCH (08:53)
[2021-09-10] MEDS: polyethylene glycoL 3350 17 GM PACKET PO SCH (08:53)
[2021-09-10] MEDS: DOCUSATE SODIUM 250 MG CAPSULE PO SCH (08:53)
[2021-09-10] MEDS: ENOXAPARIN 40 MG/0.4 ML SYRINGE SUBQ SCH ×2 (09:11→20:54)
[2021-09-10] MEDS: SERTRALINE 50 MG TABLET PO SCH (09:16)
[2021-09-10] MEDS: NYSTATIN POWDER 15 GM TOP SCH ×2 (09:22→20:55)
--- NOTE | 2021-09-10 11:46 | XRAY Report ---
PROCEDURE: Knee 2 View LT, x-ray INDICATIONS: acute left knee pain TECHNIQUE: 2 views of the left knee(s) were acquired. COMPARISON: None. FINDINGS: Bones: No fractures or dislocations. No suspicious bony lesions. Patellar degenerative enthesophyt e noted. Moderate medial and mild lateral joint space narrowing Soft tissues: No joint effusion. No suspicious soft tissue calcifications. IMPRESSION: Degenerative changes without fracture or foreign body Reviewed by: Dmitri Garcia MD on 09/10/2021 10:44 AM [facility] Approved by: Dmitri Garcia MD on 09/10/2021 10:44 AM [facility] Station ID: [id number]
[2021-09-10] MEDS: IBUPROFEN 600 MG TABLET PO SCH ×3 (12:24→23:08)
[2021-09-10] MEDS: ATORVASTATIN 40 MG TABLET PO SCH (20:54)
[2021-09-11] MEDS: SODIUM CHLORIDE FLUSH 0.9% 10 ML SYRINGE IVP SCH ×4 (01:17→23:27)
[2021-09-11] MEDS: INSULIN GLARGINE 300 UNIT/3 ML PEN SUBQ SCH ×2 (05:25→18:18)
[2021-09-11] MEDS: IBUPROFEN 600 MG TABLET PO SCH ×4 (05:25→23:27)
--- NOTE | 2021-09-11 07:44 | PROVIDER PROGRESS NOTE ---
Subjective - Prog Note Date Prog Note Date: 09/11/21 Prog Note Time: 07:43 - Subjective Subjective: Yesterday, after I saw him in the morning, he feels like his left knee is tender and swollen. Plain films were done and they were negative for effusion. Mild degenerative osteoarthritis. That was shared with the patient. Today he has no new complaints. Denies shortness of breath, coughing, abdominal pain. Getting up to the bathroom on his own. Brushing his teeth. Already ate his breakfast. Current Medications - Current Medications Current Medications: Active Medications Acetaminophen (Acetaminophen 325 Mg Tablet) 650 mg PO Q4HR PRN PRN Reason: Pain 1 to 4 Last Admin: 09/10/21 08:46 Dose: 650 mg Documented by: Atorvastatin Calcium (Atorvastatin 40 Mg Tablet) 80 mg PO QPM [facility] Last Admin: 09/10/21 20:54 Dose: 80 mg Documented by: Cholecalciferol (Cholecalciferol 25 Mcg Tablet) 50 mcg PO DAILY [facility] Last Admin: 09/10/21 08:53 Dose: 50 mcg Documented by: Docusate Sodium (Docusate Sodium 250 Mg Capsule) 250 - 500 mg PO DAILY [facility] Last Admin: 09/10/21 08:53 Dose: 250 mg Documented by: Enoxaparin Sodium (Enoxaparin 40 Mg/0.4 Ml Syringe) 40 mg SUBQ BID [facility] Last Admin: 09/10/21 20:54 Dose: 40 mg Documented by: Furosemide (Furosemide 40 Mg Tablet) 40 mg PO DAILY [facility] Last Admin: 09/10/21 08:53 Dose: 40 mg Documented by: Ibuprofen (Ibuprofen 600 Mg Tablet) 600 mg PO Q6HR [facility] Last Admin: 09/11/21 05:25 Dose: 600 mg Documented by: Insulin Aspart (Insulin Aspart 300 Unit/3 Ml Pen) 3 - 11 unit SUBQ 0800,1200,1700,2100 [facility]; Protocol Last Admin: 09/10/21 20:57 Dose: 3 unit Documented by: Insulin Aspart (Insulin Aspart 300 Unit/3 Ml Pen) 9 unit SUBQ TIDWM [facility] Last Admin: 09/10/21 17:55 Dose: 9 unit Documented by: Insulin Glargine (Insulin Glargine 300 Unit/3 Ml Pen) 30 unit SUBQ 0600,1800 [facility] Last Admin: 09/11/21 05:25 Dose: 30 unit Documented by: Losartan Potassium (Losartan 50 Mg Tablet) 100 mg PO DAILY [facility] Last Admin: 09/10/21 08:53 Dose: 100 mg Documented by: Mineral Oil (Min Oil/Dimethicon/Coconut Oil 92 Gm Tube) 1 applic TOP PRN PRN PRN Reason: Skin Care Last Admin: 08/31/21 10:26 Dose: 1 applic Documented by: Multi-Ingredient Ointment (Zinc Oxide 20% Oint 30 Gm Tube) 1 applic TOP PRN PRN PRN Reason: Skin Care Last Admin: 09/08/21 06:29 Dose: 1 applic Documented by: Nystatin (Nystatin Powder 15 Gm) 1 applic TOP BID [facility] Last Admin: 09/10/21 20:55 Dose: 1 applic Documented by: Ondansetron HCl (Ondansetron Odt 4 Mg Tablet) 4 mg TL Q6HR PRN PRN Reason: Nausea / Vomiting Ondansetron HCl (Ondansetron 4 Mg/2 Ml Vial) 4 mg IVP Q6HR PRN PRN Reason: Nausea / Vomiting Oxycodone HCl (Oxycodone 5 Mg Tablet) 5 mg PO Q4HR PRN PRN Reason: Pain 5 to 7 Last Admin: 09/03/21 19:48 Dose: 5 mg Documented by: Polyethylene Glycol (Polyethylene Glycol 3350 17 Gm Packet) 17 gm PO DAILY [facility] Last Admin: 09/10/21 08:53 Dose: 17 gm Documented by: Senna (Senna 8.6 Mg Tablet) 8.6 - 17.2 mg PO DAILY [facility] Last Admin: 09/10/21 08:53 Dose: 8.6 mg Documented by: Sertraline HCl (Sertraline 50 Mg Tablet) 200 mg PO DAILY [facility] Last Admin: 09/10/21 09:16 Dose: 200 mg Documented by: Sodium Chloride (Sodium Chloride Flush 0.9% 10 Ml Syringe) 10 ml IVP PRN PRN PRN Reason: NEEDED PER PROVIDER ORDERS Last Admin: 09/08/21 14:07 Dose: 10 ml Documented by: Sodium Chloride (Sodium Chloride Flush 0.9% 10 Ml Syringe) 10 ml IVP 0100,0900,1700 [facility] Last Admin: 09/11/21 01:17 Dose: 10 ml Documented by: Tamsulosin HCl (Tamsulosin 0.4 Mg Capsule) 0.4 mg PO DAILY [facility] Last Admin: 09/10/21 08:52 Dose: 0.4 mg Documented by: Aspirin [Aspir 81] 81 mg PO HS 02/26/14 Atorvastatin Calcium [Lipitor] 80 mg PO DAILY 02/26/14 Insulin Glargine,Hum.rec.anlog [Lantus] 30 unit SUBQ BID 02/26/14 Metformin HCl [Fortamet] 1,000 mg PO BID 12/31/20 Tamsulosin [Flomax] 0.8 mg PO QPM 12/31/20 Insulin Aspart [NovoLOG] 4 units SUBQ TIDWM 01/12/21 Empagliflozin [Jardiance] 12.5 mg PO DAILY 08/12/21 Furosemide [Lasix] 40 mg PO DAILY 08/12/21 Losartan Potassium [Cozaar] 100 mg PO DAILY 08/12/21 Sertraline HCl 200 mg PO DAILY 08/12/21 Objective - Vital Signs/Intake & Output Reviewed Vital Signs: Yes Vital Signs: Vital Signs x48h Temp Pulse Pulse Resp BP BP Pulse Ox 09/11/21 06:46 66 09/11/21 04:38 36.8 C 74 24 117/92 H 95 09/11/21 00:09 36.3 C L 67 20 148/65 H 95 Intake & Output: Intake & Output 09/08/21 09/09/21 09/10/21 09/11/21 23:59 23:59 23:59 23:59 Intake Total 8003 785 6756 Output Total 1150 650 300 575 Balance 590 190 770 -575 - Objective General Appearance: positive: Alert, Other (This 66-year-old male, sitting up in a chair, slightly disheveled appearance, lucid speech, getting ready to get his morning meds and watching TV) Eyes Bilateral: positive: PERRL, EOMI ENT: positive: No signs of dehydration Neck: negative: Stiff neck, Carotid bruit Respiratory: positive: No respiratory distress. negative: Wheezes, Rales, R honchi Cardiovascular: positive: Regular rate & rhythm. negative: Gallop/S4, Friction rub Abdomen: positive: Non-tender, Nml bowel sounds, No distention, Other (Super obese pannus, difficult to assess for any organomegaly) Skin: positive: Warm, Dry Extremities: positive: Full ROM, No pedal edema (He has thickening of his ankles that is nonpitting, cankles), Other (the knee is not swollen, no heat or effusion) Neurologic/Psychiatric: positive: Oriented x3, CN's nml (2-12), Motor nml - Lab Results Fish Bones: 09/04/21 04:06 09/10/21 04:32 Other Labs: Lab Results x24hrs 09/11/21 09/11/21 09/10/21 Range/Units 07:24 04:36 20:00 POC Whole Bld Glucose 119 H 101 H 149 H (70 - 100) mg/dL 09/10/21 09/10/21 09/10/21 Range/Units 16:57 12:01 07:50 POC Whole Bld Glucose 126 H 178 H 102 H (70 - 100) mg/dL Assessment/Plan - Problem List (1) Chronic respiratory failure with hypoxia and hypercapnia Impression: No changes as we wait for his trilogy. Nonbillable rounding. Acute has resolved and chronic remains. We looked to obtain trilogy through Medicare found out 09/06 he doesn't have Medicare. We are hopeful this will be set up this week thru the [place] system instead. Unfortunately the noninvasive ventilator is backordered so this can take a few days. Once he has this then he can be discharged to home with water purification chemist support and then will move into the [place] facility. That is our plan as he is now voicing a desire to go home. His son has spoken to and disagrees. He feels his father will only regress again. WE agree with the son and the [facility] states the same worry. But the patient himself wants to go home. Promises to be compliant. He received the [employer] COVID vaccine 09/06 to be in [facility] with the [facility]. (2) Obesity hypoventilation syndrome Impression: This is the cause of his acute on chronic hypercapnic and hypoxic respiratory failure. It is felt that this point time, a noninvasive ventilator is required to reduce hospitalization and improve the patient's health. BiPAP is considered but it is felt that it is not effective. I am ordering home noninvasive and later to treat the patient's chronic respiratory failure. (3) Anasarca Impression: This is ongoing but improved. He is now on oral Lasix. (4) Chronic venous stasis dermatitis of both lower extremities Impression: This is chronic. We are continuing to diurese him to assist with the edema and dressing changes. (5) Mild aortic stenosis Impression: Chronic and stable. He will need outpatient follow-up. (6) Controlled type 2 diabetes mellitus without complication, with long-term current use of insulin Impression: His blood glucose is well controlled on the current insulin regimen which we will continue. (7) Self neglect Impression: He is not a safe discharge home alone given his self-neglect. He has been noncompliant with his CPAP and cannot care for himself. . However, he states that he now recognizes the need for compliance and the use of the correct face mask. His long-term goal is to go to a residential facility. Until then, he would like to go home with caregiver support and son support. Son is reluctantly moving in that direction. He has already gotten the caregiver for dad 3 days a week. The other 4 days a week his son will go by. We are only waiting for the trilogy to get here.
[2021-09-11] MEDS: INSULIN ASPART 300 UNIT/3 ML PEN SUBQ SCH ×7 (08:19→20:16)
[2021-09-11] MEDS: ENOXAPARIN 40 MG/0.4 ML SYRINGE SUBQ SCH ×2 (08:20→20:16)
[2021-09-11] MEDS: SENNA 8.6 MG TABLET PO SCH (08:20)
[2021-09-11] MEDS: DOCUSATE SODIUM 250 MG CAPSULE PO SCH (08:20)
[2021-09-11] MEDS: SERTRALINE 50 MG TABLET PO SCH (08:20)
[2021-09-11] MEDS: CHOLECALCIFEROL 25 MCG TABLET PO SCH (08:20)
[2021-09-11] MEDS: NYSTATIN POWDER 15 GM TOP SCH ×2 (08:21→20:16)
[2021-09-11] MEDS: FUROSEMIDE 40 MG TABLET PO SCH (08:21)
[2021-09-11] MEDS: TAMSULOSIN 0.4 MG CAPSULE PO SCH (08:21)
[2021-09-11] MEDS: LOSARTAN 50 MG TABLET PO SCH (08:21)
[2021-09-11] MEDS: polyethylene glycoL 3350 17 GM PACKET PO SCH (08:22)
[2021-09-11] MEDS: ATORVASTATIN 40 MG TABLET PO SCH (20:15)
[2021-09-12] MEDS: IBUPROFEN 600 MG TABLET PO SCH ×3 (05:04→17:44)
[2021-09-12] MEDS: INSULIN GLARGINE 300 UNIT/3 ML PEN SUBQ SCH ×2 (05:04→17:46)
[2021-09-12] MEDS: INSULIN ASPART 300 UNIT/3 ML PEN SUBQ SCH ×5 (08:08→17:29)
[2021-09-12] MEDS: polyethylene glycoL 3350 17 GM PACKET PO SCH (09:01)
[2021-09-12] MEDS: TAMSULOSIN 0.4 MG CAPSULE PO SCH (09:13)
[2021-09-12] MEDS: CHOLECALCIFEROL 25 MCG TABLET PO SCH (09:13)
[2021-09-12] MEDS: SENNA 8.6 MG TABLET PO SCH (09:13)
[2021-09-12] MEDS: SERTRALINE 50 MG TABLET PO SCH (09:13)
[2021-09-12] MEDS: FUROSEMIDE 40 MG TABLET PO SCH (09:14)
[2021-09-12] MEDS: ENOXAPARIN 40 MG/0.4 ML SYRINGE SUBQ SCH ×2 (09:14→21:20)
[2021-09-12] MEDS: NYSTATIN POWDER 15 GM TOP SCH ×2 (09:14→21:22)
[2021-09-12] MEDS: DOCUSATE SODIUM 250 MG CAPSULE PO SCH (09:14)
[2021-09-12] MEDS: LOSARTAN 50 MG TABLET PO SCH (09:14)
[2021-09-12] MEDS: SODIUM CHLORIDE FLUSH 0.9% 10 ML SYRINGE IVP SCH ×2 (09:15→17:29)
--- NOTE | 2021-09-12 15:40 | PROVIDER PROGRESS NOTE ---
Progress Note September 12 3:34 PM Nothing new to report. Our case management division I am respiratory therapy are [facility] closely with the [facility] about getting [facility] the [facility] he needs. They are now starting to say that he cannot have trilogy because he is to demonstrate that he failed his home CPAP machine. Since his CPAP machine is broken they are going to send him new parts for the CPAP. They are going to require he use it and follow-up with the [facility] on a regular basis to prove to them he cannot use this. Temperature is 36.8. Heart rate 54. Blood pressure 138/50. Respirations 21. 92% on 2 L. Super obese pleasant white male who is 5 foot 8 inches tall and weighs 146 kg ENT is with normal facial symmetry. Slightly nasal tone of voice. Normal speech patterns. Neck is supple. Lungs have diminished breath sounds at the bases and overall is difficult to hear him because of his large size but he is without any increased respiratory effort, shortness of breath Regular rate and rhythm Abdomen is super obese, extremely large pannus, nontender, normal bowel sounds Extremities are large, edema that was severe on admission has come down substantially but he still has 1+ to trace edema with skin that is showing signs of stretching and shrinking. Even though he said his left knee hurts, there is no effusion, no warmth no tenderness Neurologically he is alert, oriented to person place and time. Following commands. Last labs were done on September 09. He has chronic hyper cardia. Chloride 93. Assessment/plan At this time this is nonbillable rounding. We have been waiting for equipment to be delivered by the [facility] so this patient could go home. The long-term plan is for him to then transition to a intermediate facility. We have a new plan today is the [facility] saying they are not going to provide him with trilogy and case management and respiratory therapy will continue to work with them to tell me with the final disposition is going to be. The problems addressed during this admission have been acute on chronic respiratory failure with hypercapnia and hypoxia, this was due to obesity hypoventilation and obstructive sleep apnea. He has diabetes. Morbid obesity that limits his mobility. History of noncompliance where he swears that he is a new man and will promised to comply in the future to avoid hospitalization. This brief note is being dictated as a result of power outage and intermittent lack of EMR access.
[2021-09-12] MEDS: ATORVASTATIN 40 MG TABLET PO SCH (21:20)
[2021-09-12] MEDS: MIN OIL/DIMETHICON/COCONUT OIL 92 GM TUBE TOP PRN (21:22)
[2021-09-13] MEDS: INSULIN GLARGINE 300 UNIT/3 ML PEN SUBQ SCH ×2 (06:33→19:56)
[2021-09-13] MEDS: INSULIN ASPART 300 UNIT/3 ML PEN SUBQ SCH ×8 (06:34→21:35)
[2021-09-13] MEDS: IBUPROFEN 600 MG TABLET PO SCH ×4 (06:34→19:58)
[2021-09-13] MEDS: SODIUM CHLORIDE FLUSH 0.9% 10 ML SYRINGE IVP SCH ×3 (06:39→19:59)
--- NOTE | 2021-09-13 07:40 | PROVIDER PROGRESS NOTE ---
Assessment/Plan - Problem List (1) Acute on chronic respiratory failure with hypoxia and hypercapnia Assessment/Plan: [facility] It will have to be established that the patient failed the new device before he could be eligible for the trilogy The patient was sent a new BiPAP device with mask yesterday. He did not tolerate it last night. He also did not tolerate the device this morning. He appeared to become significantly dyspneic and cyanotic while on the device (2) CO2 narcosis Assessment/Plan: [facility]. It will have to be established that the patient failed the new device before he could be eligible for the trilogy The patient was sent a new BiPAP device with mask yesterday. He did not tolerate it last night. He also did not tolerate the device this morning. He appeared to become significantly dyspneic and cyanotic while on the device We will continue with the hospital BiPAP at night and as needed. We will also resume the process of trying to get him trilogy. Discharge coordinators and respiratory therapy to help facilitate the process. (3) Chronic venous stasis dermatitis of both lower extremities Assessment/Plan: Continue to wrap lower extremities with Jon wrap compressions and elevate legs. Continue Lasix 40 mg p.o. twice daily. (5) YONATAN on CPAP Assessment/Plan: On BiPAP nightly. (6) Obesity hypoventilation syndrome Assessment/Plan: On BiPAP nightly. (7) Controlled type 2 diabetes mellitus without complication, with long-term current use of insulin Assessment/Plan: Lantus 30 units subcu twice daily Insulin aspart 9 units subcu 3 times daily with meals. High-dose sliding scale insulin. (8) Self neglect Assessment/Plan: Case management/social work/discharge coordinators to help facilitate the process. - Current Meds Current Meds: Current Medications Generic Name Dose Route Start Last Admin Trade Name Freq PRN Reason Stop Dose Admin Acetaminophen 650 mg 08/12/21 10:28 09/10/21 08:46 Acetaminophen 325 Mg Tablet PO 650 mg Q4HR PRN Administration Pain 1 to 4 Atorvastatin Calcium 80 mg 08/17/21 21:00 09/12/21 21:20 Atorvastatin 40 Mg Tablet PO 80 mg QPM JAYNA Administration Cholecalciferol 50 mcg 08/25/21 13:00 09/12/21 09:13 Cholecalciferol 25 Mcg Tablet PO 50 mcg DAILY [facility] Administration Docusate Sodium 250 - 500 mg 08/23/21 09:00 09/12/21 09:14 Docusate Sodium 250 Mg Capsule PO 250 mg DAILY [facility] Administration Enoxaparin Sodium 40 mg 08/13/21 09:00 09/12/21 21:20 Enoxaparin 40 Mg/0.4 Ml Syringe SUBQ 40 mg BID JAYNA Administration Furosemide 40 mg 09/05/21 09:00 09/12/21 09:14 Furosemide 40 Mg Tablet PO 40 mg DAILY JAYNA Administration Ibuprofen 600 mg 09/10/21 12:00 09/13/21 06:39 Ibuprofen 600 Mg Tablet PO 600 mg Q6HR [facility] Administration Insulin Aspart 3 - 11 unit 08/23/21 12:45 09/13/21 06:34 Insulin Aspart 300 Unit/3 Ml Pen SUBQ Not Given 0800,1200,1700,2100 [facility] Protocol Insulin Aspart 9 unit 08/27/21 17:00 09/12/21 17:29 Insulin Aspart 300 Unit/3 Ml Pen SUBQ 9 unit TIDWM [facility] Administration Insulin Glargine 30 unit 08/29/21 18:00 09/13/21 06:33 Insulin Glargine 300 Unit/3 Ml Pen SUBQ 30 unit 0600,1800 [facility] Administration Losartan Potassium 100 mg 08/18/21 09:00 09/12/21 09:14 Losartan 50 Mg Tablet PO 100 mg DAILY [facility] Administration Mineral Oil 1 applic 08/17/21 09:49 09/12/21 21:22 Min Oil/Dimethicon/Coconut Oil 92 Gm Tube TOP 1 applic PRN PRN Administration Skin Care Multi-Ingredient Ointment 1 applic 08/24/21 10:47 09/08/21 06:29 Zinc Oxide 20% Oint 30 Gm Tube TOP 1 applic PRN PRN Administration Skin Care Nystatin 1 applic 08/16/21 21:00 09/12/21 21:22 Nystatin Powder 15 Gm TOP 1 applic BID JAYNA Administration Oxycodone HCl 5 mg 08/12/21 10:28 09/03/21 19:48 Oxycodone 5 Mg Tablet PO 5 mg Q4HR PRN Administration Pain 5 to 7 Polyethylene Glycol 17 gm 08/16/21 17:04 09/12/21 09:01 Polyethylene Glycol 3350 17 Gm Packet PO Not Given DAILY [facility] Senna 8.6 - 17.2 mg 08/14/21 09:00 09/12/21 09:13 Senna 8.6 Mg Tablet PO 8.6 mg DAILY JAYNA Administration Sertraline HCl 200 mg 08/13/21 21:00 09/12/21 09:13 Sertraline 50 Mg Tablet PO 200 mg DAILY JAYNA Administration Sodium Chloride 10 ml 08/12/21 10:28 09/08/21 14:07 Sodium Chloride Flush 0.9% 10 Ml Syringe IVP 10 ml PRN PRN Administration NEEDED PER PROVIDER ORDERS Sodium Chloride 10 ml 09/08/21 17:00 09/13/21 06:39 Sodium Chloride Flush 0.9% 10 Ml Syringe IVP 10 ml 0100,0900,1700 JAYNA Administration Tamsulosin HCl 0.4 mg 08/13/21 09:00 09/12/21 09:13 Tamsulosin 0.4 Mg Capsule PO 0.4 mg DAILY JAYNA Administration - Lab Result Fish Bone Diagrams: 09/04/21 04:06 09/10/21 04:32 Subjective - Subjective Patient Reports: Other (Resting comfortably at time of exam. Denied chest pain, dyspnea, abdominal pain, nausea, vomiting, fever. Did not tolerate new mask on BiPAP overnight.) Objective Vital Signs: Vital Signs - 24 hr 09/12/21 09/12/21 09/12/21 09:51 11:31 21:00 Temperature 36.8 C 37.0 C Heart Rate 65 Heart Rate [ 54 L 61 Monitoring electrodes] Respiratory 21 18 Rate Blood Pressure 138/50 H [Left Brachial artery] Blood Pressure 147/93 H [Right Radial artery] O2 Saturation 92 93 09/13/21 09/13/21 01:00 05:00 Temperature 36.7 C Heart Rate Heart Rate [ 70 59 L Monitoring electrodes] Respiratory 21 17 Rate Blood Pressure [Left Brachial artery] Blood Pressure 151/72 H 142/80 H [Right Radial artery] O2 Saturation 94 96 Oxygen O2 Source [Without Activity] Nasal cannula O2 Source [With Activity] Nasal cannula O2 Source Nasal cannula Oxygen Flow Rate 4 I&O (Last 24 Hrs): Intake and Output Totals x24h 09/11/21 09/12/21 09/13/21 23:59 23:59 23:59 Intake Total 480 1060 250 Output Total 1000 Balance -520 1060 250 General: Alert, Oriented x3, No acute distress HEENT: PERRLA, EOMI Neck: Supple, No JVD Neuro: Alert, Non Focal, Oriented Times 3 Cardiovascular: Regular rate Respiratory: Chest non-tender, No respiratory distress, Breath sounds nml Abdomen: Normal bowel sounds, Soft, Other (obese abdomen) Extremities: No clubbing, Other (2+ lower extremity edema) Skin: No rashes, No breakdown, No significant lesion - Results Results: Laboratory Results WBC 5.6 x10^3/uL (4.8-10.8) 09/04/21 04:06 RBC 4.49 10^6/uL (4.70-6.10) L 09/04/21 04:06 Hgb 10.5 g/dL (14.0-18.0) L 09/04/21 04:06 Hct 38.6 % (42.0-52.0) L 09/04/21 04:06 MCV 86.0 fL (80.0-94.0) 09/04/21 04:06 MCH 23.4 pg (27.0-31.0) L 09/04/21 04:06 MCHC 27.2 g/dL (32.0-36.0) L 09/04/21 04:06 RDW 17.7 % (12.0-15.0) H 09/04/21 04:06 Plt Count 228 10^3/uL (130-450) 09/04/21 04:06 MPV 10.2 fL (7.4-11.4) 09/04/21 04:06 Neut # (Auto) 3.5 10^3/uL (1.5-6.6) 09/04/21 04:06 Lymph # (Auto) 1.5 10^3/uL (1.5-3.5) 09/04/21 04:06 [place] # (Auto) 0.4 10^3/uL (0.0-1.0) 09/04/21 04:06 Eos # (Auto) 0.2 10^3/uL (0.0-0.7) 09/04/21 04:06 Baso # (Auto) 0.0 10^3/uL (0.0-0.1) 09/04/21 04:06 Absolute Nucleated RBC 0.00 x10^3/uL 09/04/21 04:06 Nucleated RBC % 0.0 /100WBC 09/04/21 04:06 Manual Slide Review Indicated 09/04/21 04:06 WBC Morphology NORMAL APPEARANCE (NORMAL) 09/04/21 04:06 Platelet Estimate NORMAL (130-450,000) (NORMAL) 09/04/21 04:06 Platelet Morphology NORMAL APPEARANCE (NORMAL) 09/04/21 04:06 RBC Morph Micro Appear 1+ ANISOCYTOSIS (NORMAL) 1+ HYPOCHROMASIA (NORMAL) 1+ STOMATOCYTES (NORMAL) 09/04/21 04:06 RBC Morph Micro Appear 1+ ANISOCYTOSIS (NORMAL) 1+ HYPOCHROMASIA (NORMAL) 1+ STOMATOCYTES (NORMAL) 09/04/21 04:06 RBC Morph Micro Appear 1+ ANISOCYTOSIS (NORMAL) 1+ HYPOCHROMASIA (NORMAL) 1+ STOMATOCYTES (NORMAL) 09/04/21 04:06 Bld Gas Analysis Time 0634 08/31/21 06:26 Sample Site LEFT RADIAL 08/30/21 16:08 ABG pH 7.47 (7.35-7.45) H 08/31/21 06:26 ABG pCO2 71 mmHg (34-45) H* 08/31/21 06:26 ABG pO2 56 mmHg (80-100) L 08/31/21 06:26 ABG HCO3 50.8 mmol/L (22.0-26.0) H 08/31/21 06:26 ABG Total CO2 53.0 MMOL/L (21.0-29.0) H* 08/31/21 06:26 ABG O2 Saturation 91 % (94-98) L 08/31/21 06:26 ABG Base Excess 23.4 mmol/L (-2.0-3.0) H 08/31/21 06:26 Reynaldo Test POSITIVE 08/31/21 06:26 VBG pH 7.299 (7.31-7.41) L 09/10/21 04:32 VBG pCO2 102.1 mmHg (41-51) H 08/12/21 11:22 VBG pO2 85.8 mmHg (25-47) H 08/12/21 11:22 VBG HCO3 36.4 mmol/L (23-28) H 08/12/21 11:22 VBG Total CO2 39.5 mmol/L (24-29) H 08/12/21 11:22 VBG O2 Saturation 95.4 % (60-80) H 08/12/21 11:22 VBG Base Excess 3.6 mmol/L (-2 - +2) H 08/12/21 11:22 Ionized Calcium 1.16 mmol/L (1.15-1.33) 09/10/21 04:32 Respiration Rate 30 b/min 08/30/21 16:08 O2 Delivery Device BiPAP 08/31/21 06:26 Vent Mode 08/30/21 16:08 FiO2 50.00 08/31/21 06:26 PEEP 8 cmH2O 08/30/21 11:40 Pressure Support Vent 10 cmH2O 08/31/21 06:26 EPAP 10 cmH2O 08/31/21 06:26 IPAP 20 cmH2O 08/31/21 06:26 Sodium 140 mmol/L (135-145) 09/09/21 07:26 Potassium 4.4 mmol/L (3.5-5.0) 09/09/21 07:26 Chloride 93 mmol/L (101-111) L 09/09/21 07:26 Carbon Dioxide 39 mmol/L (21-32) H* 09/09/21 07:26 Anion Gap 8.0 (6-13) 09/09/21 07:26 BUN 20 mg/dL (6-20) 09/09/21 07:26 Creatinine 0.7 mg/dL (0.6-1.2) 09/09/21 07:26 Estimated GFR (MDRD) 112 (>89) 09/09/21 07:26 Glucose 96 mg/dL (70-100) 09/10/21 04:32 POC Whole Bld Glucose 119 mg/dL (70 - 100) H 09/12/21 21:18 Estimat Average Glucose 146 mg/dL (70-100) H 08/13/21 14:53 Hemoglobin A1c % 6.7 % (4.27-6.07) H 08/13/21 14:53 Calcium 8.7 mg/dL (8.5-10.3) 09/09/21 07:26 Phosphorus 3.6 mg/dL (2.5-4.6) 09/10/21 04:32 Magnesium 2.1 mg/dL (1.7-2.8) 09/10/21 04:32 Total Bilirubin 0.6 mg/dL (0.2-1.0) 08/12/21 08:40 AST 14 IU/L (10-42) 08/12/21 08:40 ALT 15 IU/L (10-60) 08/12/21 08:40 Alkaline Phosphatase 119 IU/L (42-121) 08/12/21 08:40 Troponin I High Sens 27.4 ng/L (2.3-19.7) H* 08/12/21 11:22 B-Natriuretic Peptide 161 pg/mL (5-100) H 08/12/21 08:40 Total Protein 7.2 g/dL (6.7-8.2) 08/12/21 08:40 Albumin 3.2 g/dL (3.2-5.5) 08/12/21 08:40 Globulin 4.0 g/dL (2.1-4.2) 08/12/21 08:40 Albumin/Globulin Ratio 0.8 (1.0-2.2) L 08/12/21 08:40 Lipase 30 U/L (22-51) 08/12/21 08:40 Nasal Adenovirus (PCR) NOT DETECTED 08/12/21 08:40 Nasal B. parapertussis DNA (PCR) NOT DETECTED 08/12/21 08:40 Nasal Coronavir 229E PCR NOT DETECTED 08/12/21 08:40 Nasal Coronavir HKU1 PCR NOT DETECTED 08/12/21 08:40 Nasal Coronavir NL63 PCR NOT DETECTED 08/12/21 08:40 Nasal Coronavir OC43 PCR NOT DETECTED 08/12/21 08:40 Nasal Enterovir/Rhinovir PCR NOT DETECTED 08/12/21 08:40 Nasal Influenza B PCR NOT DETECTED 08/12/21 08:40 Nasal Influenza A PCR NOT DETECTED 08/12/21 08:40 Nasal Parainfluen 1 PCR NOT DETECTED 08/12/21 08:40 Nasal Parainfluen 2 PCR NOT DETECTED 08/12/21 08:40 Nasal Parainfluen 3 PCR NOT DETECTED 08/12/21 08:40 Nasal Parainfluen 4 PCR NOT DETECTED 08/12/21 08:40 Nasal RSV (PCR) NOT DETECTED 08/12/21 08:40 Nasal Screen MRSA (PCR) NEGATIVE (NEGATIVE) 08/12/21 14:00 Nasal B.pertussis DNA PCR NOT DETECTED 08/12/21 08:40 Nasal C.pneumoniae (PCR) NOT DETECTED 08/12/21 08:40 Armando Human Metapneumo PCR NOT DETECTED 08/12/21 08:40 Nasal M.pneumoniae (PCR) NOT DETECTED 08/12/21 08:40 Nasal SARS-CoV-2 (PCR) NOT DETECTED 08/12/21 08:40 - Procedures Procedures: Procedures ENDOSC POLYPECTOMY OF LG INTEST (02/27/14) ABX Reporting Has patient been on IV antibiotics over the past 48 hours?: No
[2021-09-13] MEDS: SERTRALINE 50 MG TABLET PO SCH (08:59)
[2021-09-13] MEDS: SENNA 8.6 MG TABLET PO SCH (09:00)
[2021-09-13] MEDS: LOSARTAN 50 MG TABLET PO SCH (09:00)
[2021-09-13] MEDS: FUROSEMIDE 40 MG TABLET PO SCH (09:00)
[2021-09-13] MEDS: CHOLECALCIFEROL 25 MCG TABLET PO SCH (09:00)
[2021-09-13] MEDS: ENOXAPARIN 40 MG/0.4 ML SYRINGE SUBQ SCH ×2 (09:01→21:35)
[2021-09-13] MEDS: TAMSULOSIN 0.4 MG CAPSULE PO SCH (09:01)
[2021-09-13] MEDS: DOCUSATE SODIUM 250 MG CAPSULE PO SCH (09:01)
[2021-09-13] MEDS: polyethylene glycoL 3350 17 GM PACKET PO SCH (09:05)
[2021-09-13] MEDS: NYSTATIN POWDER 15 GM TOP SCH ×2 (09:05→21:36)
[2021-09-13] MEDS: ATORVASTATIN 40 MG TABLET PO SCH (21:35)
[2021-09-14] MEDS: IBUPROFEN 600 MG TABLET PO SCH ×4 (03:22→18:16)
[2021-09-14] MEDS: INSULIN GLARGINE 300 UNIT/3 ML PEN SUBQ SCH ×2 (06:30→18:17)
[2021-09-14] MEDS: SODIUM CHLORIDE FLUSH 0.9% 10 ML SYRINGE IVP SCH ×4 (06:32→21:27)
--- NOTE | 2021-09-14 07:31 | PROVIDER PROGRESS NOTE ---
Assessment/Plan - Problem List (1) Acute on chronic respiratory failure with hypoxia and hypercapnia Assessment/Plan: Patient failed new bipap in the ICU over the past 48 hours His oxygen saturation dropped to 60% and he appeared cyanotic We will continue with the hospital BiPAP at night and as needed. We will also resume the process of trying to get him trilogy. Discharge coordinators and respiratory therapy to help facilitate the process. (2) CO2 narcosis Assessment/Plan: Patient failed new bipap in the ICU over the past 48 hours His oxygen saturation dropped to 60% and he appeared cyanotic We will continue with the hospital BiPAP at night and as needed. We will also resume the process of trying to get him trilogy. Discharge coordinators and respiratory therapy to help facilitate the process. (3) Chronic venous stasis dermatitis of both lower extremities Assessment/Plan: Continue to wrap lower extremities with Jon wrap compressions and elevate legs. Continue Lasix 40 mg p.o. twice daily. (5) YONATAN on CPAP Assessment/Plan: On BiPAP nightly. (6) Obesity hypoventilation syndrome Assessment/Plan: On BiPAP nightly. (7) Controlled type 2 diabetes mellitus without complication, with long-term current use of insulin Assessment/Plan: Lantus 30 units subcu twice daily Insulin aspart 9 units subcu 3 times daily with meals. High-dose sliding scale insulin. (8) Self neglect Assessment/Plan: Case management/social work/discharge coordinators to help facilitate the process. - Current Meds Current Meds: Current Medications Generic Name Dose Route Start Last Admin Trade Name Freq PRN Reason Stop Dose Admin Acetaminophen 650 mg 08/12/21 10:28 09/10/21 08:46 Acetaminophen 325 Mg Tablet PO 650 mg Q4HR PRN Administration Pain 1 to 4 Atorvastatin Calcium 80 mg 08/17/21 21:00 09/13/21 21:35 Atorvastatin 40 Mg Tablet PO 80 mg QPM JAYNA Administration Cholecalciferol 50 mcg 08/25/21 13:00 09/13/21 09:00 Cholecalciferol 25 Mcg Tablet PO 50 mcg DAILY JAYNA Administration Docusate Sodium 250 - 500 mg 08/23/21 09:00 09/13/21 09:01 Docusate Sodium 250 Mg Capsule PO 250 mg DAILY JAYNA Administration Enoxaparin Sodium 40 mg 08/13/21 09:00 09/13/21 21:35 Enoxaparin 40 Mg/0.4 Ml Syringe SUBQ 40 mg BID JAYNA Administration Furosemide 40 mg 09/05/21 09:00 09/13/21 09:00 Furosemide 40 Mg Tablet PO 40 mg DAILY JAYNA Administration Ibuprofen 600 mg 09/10/21 12:00 09/14/21 06:32 Ibuprofen 600 Mg Tablet PO 600 mg Q6HR JAYNA Administration Insulin Aspart 3 - 11 unit 08/23/21 12:45 09/13/21 21:35 Insulin Aspart 300 Unit/3 Ml Pen SUBQ 3 unit 0800,1200,1700,2100 JAYNA Administration Protocol Insulin Aspart 9 unit 08/27/21 17:00 09/13/21 19:58 Insulin Aspart 300 Unit/3 Ml Pen SUBQ Not Given TIDWM JAYNA Insulin Glargine 30 unit 08/29/21 18:00 09/14/21 06:30 Insulin Glargine 300 Unit/3 Ml Pen SUBQ 30 unit 0600,1800 JAYNA Administration Losartan Potassium 100 mg 08/18/21 09:00 09/13/21 09:00 Losartan 50 Mg Tablet PO 100 mg DAILY JAYNA Administration Mineral Oil 1 applic 08/17/21 09:49 09/12/21 21:22 Min Oil/Dimethicon/Coconut Oil 92 Gm Tube TOP 1 applic PRN PRN Administration Skin Care Multi-Ingredient Ointment 1 applic 08/24/21 10:47 09/08/21 06:29 Zinc Oxide 20% Oint 30 Gm Tube TOP 1 applic PRN PRN Administration Skin Care Nystatin 1 applic 08/16/21 21:00 09/13/21 21:36 Nystatin Powder 15 Gm TOP 1 applic BID JAYNA Administration Oxycodone HCl 5 mg 08/12/21 10:28 09/03/21 19:48 Oxycodone 5 Mg Tablet PO 5 mg Q4HR PRN Administration Pain 5 to 7 Polyethylene Glycol 17 gm 08/16/21 17:04 09/13/21 09:05 Polyethylene Glycol 3350 17 Gm Packet PO Not Given DAILY JAYNA Senna 8.6 - 17.2 mg 08/14/21 09:00 09/13/21 09:00 Senna 8.6 Mg Tablet PO 8.6 mg DAILY JAYNA Administration Sertraline HCl 200 mg 08/13/21 21:00 09/13/21 08:59 Sertraline 50 Mg Tablet PO 200 mg DAILY JAYNA Administration Sodium Chloride 10 ml 08/12/21 10:28 09/08/21 14:07 Sodium Chloride Flush 0.9% 10 Ml Syringe IVP 10 ml PRN PRN Administration NEEDED PER PROVIDER ORDERS Sodium Chloride 10 ml 09/08/21 17:00 09/14/21 06:32 Sodium Chloride Flush 0.9% 10 Ml Syringe IVP 10 ml 0100,0900,1700 JAYNA Administration Tamsulosin HCl 0.4 mg 08/13/21 09:00 09/13/21 09:01 Tamsulosin 0.4 Mg Capsule PO 0.4 mg DAILY JAYNA Administration - Lab Result Fish Bone Diagrams: 09/14/21 07:49 09/14/21 07:49 Subjective - Subjective Patient Reports: Other (Resting comfortably at time of exam. Denied chest pain, dyspnea, abdominal pain, nausea, vomiting, fever.) Objective Vital Signs: Vital Signs - 24 hr 09/13/21 09/13/21 09/13/21 07:35 11:15 12:01 Temperature 36.8 C Heart Rate 62 Heart Rate [ 75 63 Monitoring electrodes] Respiratory 19 21 Rate Blood Pressure 159/69 H 136/66 H [Left Brachial artery] O2 Saturation 97 97 09/13/21 09/13/21 09/13/21 16:12 20:46 21:29 Temperature 36.4 C L 36.7 C Heart Rate 70 Heart Rate [ 61 54 L Monitoring electrodes] Respiratory 22 23 Rate Blood Pressure 154/67 H 161/60 H [Left Brachial artery] O2 Saturation 100 99 09/13/21 09/14/21 09/14/21 23:52 01:17 04:41 Temperature 37.0 C Heart Rate 62 Heart Rate [ 62 61 Monitoring electrodes] Respiratory 20 14 Rate Blood Pressure 173/75 H 131/77 H [Left Brachial artery] O2 Saturation 96 92 Oxygen O2 Source [Without Activity] Nasal cannula O2 Source [With Activity] Nasal cannula O2 Source Nasal cannula Oxygen Flow Rate 4 I&O (Last 24 Hrs): Intake and Output Totals x24h 09/12/21 09/13/21 09/14/21 23:59 23:59 23:59 Intake Total 1060 930 Balance 1060 930 Comments/Notes: General: Alert, Oriented x3, No acute distress HEENT: PERRLA, EOMI Neck: Supple, No JVD Neuro: Alert, Non Focal, Oriented Times 3 Cardiovascular: Regular rate Respiratory: Chest non-tender, No respiratory distress, Breath sounds nml Abdomen: Normal bowel sounds, Soft, Other (obese abdomen) Extremities: No clubbing, Other (2+ lower extremity edema) Skin: No rashes, No breakdown, No significant lesion - Results Results: Laboratory Results WBC 5.6 x10^3/uL (4.8-10.8) 09/04/21 04:06 RBC 4.49 10^6/uL (4.70-6.10) L 09/04/21 04:06 Hgb 10.5 g/dL (14.0-18.0) L 09/04/21 04:06 Hct 38.6 % (42.0-52.0) L 09/04/21 04:06 MCV 86.0 fL (80.0-94.0) 09/04/21 04:06 MCH 23.4 pg (27.0-31.0) L 09/04/21 04:06 MCHC 27.2 g/dL (32.0-36.0) L 09/04/21 04:06 RDW 17.7 % (12.0-15.0) H 09/04/21 04:06 Plt Count 228 10^3/uL (130-450) 09/04/21 04:06 MPV 10.2 fL (7.4-11.4) 09/04/21 04:06 Neut # (Auto) 3.5 10^3/uL (1.5-6.6) 09/04/21 04:06 Lymph # (Auto) 1.5 10^3/uL (1.5-3.5) 09/04/21 04:06 [place] # (Auto) 0.4 10^3/uL (0.0-1.0) 09/04/21 04:06 Eos # (Auto) 0.2 10^3/uL (0.0-0.7) 09/04/21 04:06 Baso # (Auto) 0.0 10^3/uL (0.0-0.1) 09/04/21 04:06 Absolute Nucleated RBC 0.00 x10^3/uL 09/04/21 04:06 Nucleated RBC % 0.0 /100WBC 09/04/21 04:06 Manual Slide Review Indicated 09/04/21 04:06 WBC Morphology NORMAL APPEARANCE (NORMAL) 09/04/21 04:06 Platelet Estimate NORMAL (130-450,000) (NORMAL) 09/04/21 04:06 Platelet Morphology NORMAL APPEARANCE (NORMAL) 09/04/21 04:06 RBC Morph Micro Appear 1+ ANISOCYTOSIS (NORMAL) 1+ HYPOCHROMASIA (NORMAL) 1+ STOMATOCYTES (NORMAL) 09/04/21 04:06 RBC Morph Micro Appear 1+ ANISOCYTOSIS (NORMAL) 1+ HYPOCHROMASIA (NORMAL) 1+ STOMATOCYTES (NORMAL) 09/04/21 04:06 RBC Morph Micro Appear 1+ ANISOCYTOSIS (NORMAL) 1+ HYPOCHROMASIA (NORMAL) 1+ STOMATOCYTES (NORMAL) 09/04/21 04:06 Bld Gas Analysis Time 0634 08/31/21 06:26 Sample Site LEFT RADIAL 08/30/21 16:08 ABG pH 7.47 (7.35-7.45) H 08/31/21 06:26 ABG pCO2 71 mmHg (34-45) H* 08/31/21 06:26 ABG pO2 56 mmHg (80-100) L 08/31/21 06:26 ABG HCO3 50.8 mmol/L (22.0-26.0) H 08/31/21 06:26 ABG Total CO2 53.0 MMOL/L (21.0-29.0) H* 08/31/21 06:26 ABG O2 Saturation 91 % (94-98) L 08/31/21 06:26 ABG Base Excess 23.4 mmol/L (-2.0-3.0) H 08/31/21 06:26 Reynaldo Test POSITIVE 08/31/21 06:26 VBG pH 7.299 (7.31-7.41) L 09/10/21 04:32 VBG pCO2 102.1 mmHg (41-51) H 08/12/21 11:22 VBG pO2 85.8 mmHg (25-47) H 08/12/21 11:22 VBG HCO3 36.4 mmol/L (23-28) H 08/12/21 11:22 VBG Total CO2 39.5 mmol/L (24-29) H 08/12/21 11:22 VBG O2 Saturation 95.4 % (60-80) H 08/12/21 11:22 VBG Base Excess 3.6 mmol/L (-2 - +2) H 08/12/21 11:22 Ionized Calcium 1.16 mmol/L (1.15-1.33) 09/10/21 04:32 Respiration Rate 30 b/min 08/30/21 16:08 O2 Delivery Device BiPAP 08/31/21 06:26 Vent Mode 08/30/21 16:08 FiO2 50.00 08/31/21 06:26 PEEP 8 cmH2O 08/30/21 11:40 Pressure Support Vent 10 cmH2O 08/31/21 06:26 EPAP 10 cmH2O 08/31/21 06:26 IPAP 20 cmH2O 08/31/21 06:26 Sodium 140 mmol/L (135-145) 09/09/21 07:26 Potassium 4.4 mmol/L (3.5-5.0) 09/09/21 07:26 Chloride 93 mmol/L (101-111) L 09/09/21 07:26 Carbon Dioxide 39 mmol/L (21-32) H* 09/09/21 07:26 Anion Gap 8.0 (6-13) 09/09/21 07:26 BUN 20 mg/dL (6-20) 09/09/21 07:26 Creatinine 0.7 mg/dL (0.6-1.2) 09/09/21 07:26 Estimated GFR (MDRD) 112 (>89) 09/09/21 07:26 Glucose 96 mg/dL (70-100) 09/10/21 04:32 POC Whole Bld Glucose 124 mg/dL (70 - 100) H 09/13/21 16:57 Estimat Average Glucose 146 mg/dL (70-100) H 08/13/21 14:53 Hemoglobin A1c % 6.7 % (4.27-6.07) H 08/13/21 14:53 Calcium 8.7 mg/dL (8.5-10.3) 09/09/21 07:26 Phosphorus 3.6 mg/dL (2.5-4.6) 09/10/21 04:32 Magnesium 2.1 mg/dL (1.7-2.8) 09/10/21 04:32 Total Bilirubin 0.6 mg/dL (0.2-1.0) 08/12/21 08:40 AST 14 IU/L (10-42) 08/12/21 08:40 ALT 15 IU/L (10-60) 08/12/21 08:40 Alkaline Phosphatase 119 IU/L (42-121) 08/12/21 08:40 Troponin I High Sens 27.4 ng/L (2.3-19.7) H* 08/12/21 11:22 B-Natriuretic Peptide 161 pg/mL (5-100) H 08/12/21 08:40 Total Protein 7.2 g/dL (6.7-8.2) 08/12/21 08:40 Albumin 3.2 g/dL (3.2-5.5) 08/12/21 08:40 Globulin 4.0 g/dL (2.1-4.2) 08/12/21 08:40 Albumin/Globulin Ratio 0.8 (1.0-2.2) L 08/12/21 08:40 Lipase 30 U/L (22-51) 08/12/21 08:40 Nasal Adenovirus (PCR) NOT DETECTED 08/12/21 08:40 Nasal B. parapertussis DNA (PCR) NOT DETECTED 08/12/21 08:40 Nasal Coronavir 229E PCR NOT DETECTED 08/12/21 08:40 Nasal Coronavir HKU1 PCR NOT DETECTED 08/12/21 08:40 Nasal Coronavir NL63 PCR NOT DETECTED 08/12/21 08:40 Nasal Coronavir OC43 PCR NOT DETECTED 08/12/21 08:40 Nasal Enterovir/Rhinovir PCR NOT DETECTED 08/12/21 08:40 Nasal Influenza B PCR NOT DETECTED 08/12/21 08:40 Nasal Influenza A PCR NOT DETECTED 08/12/21 08:40 Nasal Parainfluen 1 PCR NOT DETECTED 08/12/21 08:40 Nasal Parainfluen 2 PCR NOT DETECTED 08/12/21 08:40 Nasal Parainfluen 3 PCR NOT DETECTED 08/12/21 08:40 Nasal Parainfluen 4 PCR NOT DETECTED 08/12/21 08:40 Nasal RSV (PCR) NOT DETECTED 08/12/21 08:40 Nasal Screen MRSA (PCR) NEGATIVE (NEGATIVE) 08/12/21 14:00 Nasal B.pertussis DNA PCR NOT DETECTED 08/12/21 08:40 Nasal C.pneumoniae (PCR) NOT DETECTED 08/12/21 08:40 Armando Human Metapneumo PCR NOT DETECTED 08/12/21 08:40 Nasal M.pneumoniae (PCR) NOT DETECTED 08/12/21 08:40 Nasal SARS-CoV-2 (PCR) NOT DETECTED 08/12/21 08:40 - Procedures Procedures: Procedures ENDOSC POLYPECTOMY OF LG INTEST (02/27/14) ABX Reporting Has patient been on IV antibiotics over the past 48 hours?: No
[2021-09-14 08:05] LABS: BASOPHILS % (AUTO) 0.4 %; EOSINOPHILS # (AUTO) 0.2 10^3/uL (0.0-0.7); EOSINOPHILS % (AUTO) 3.5 %; HCT - HEMATOCRIT 41.4 % (42.0-52.0); HGB - HEMOGLOBIN 11.4 g/dL (14.0-18.0); LYMPHOCYTES # (AUTO) 1.5 10^3/uL (1.5-3.5); MEAN CORPUSCULAR HEMOGLOBIN 24.3 pg (27.0-31.0); MEAN CORPUSCULAR HGB CONC 27.5 g/dL (32.0-36.0); MEAN CORPUSCULAR VOLUME 88.1 fL (80.0-94.0); MEAN PLATELET VOLUME 9.4 fL (7.4-11.4); MONOCYTES # (AUTO) 0.3 10^3/uL (0.0-1.0); MONOCYTES % (AUTO) 5.5 %; NEUTROPHILS # (AUTO) 3.4 10^3/uL (1.5-6.6); NEUTROPHILS % (AUTO) 62.4 %; PLT - PLATELET COUNT 160 10^3/uL (130-450); RED CELL DISTRIBUTION WIDTH 18.3 % (12.0-15.0); WHITE BLOOD COUNT 5.4 x10^3/uL (4.8-10.8)
[2021-09-14] MEDS: INSULIN ASPART 300 UNIT/3 ML PEN SUBQ SCH ×7 (08:13→21:17)
[2021-09-14] MEDS: ACETAMINOPHEN 325 MG TABLET PO PRN (08:15)
[2021-09-14] MEDS: CHOLECALCIFEROL 25 MCG TABLET PO SCH (08:15)
[2021-09-14] MEDS: TAMSULOSIN 0.4 MG CAPSULE PO SCH (08:16)
[2021-09-14] MEDS: LOSARTAN 50 MG TABLET PO SCH (08:16)
[2021-09-14] MEDS: SERTRALINE 50 MG TABLET PO SCH (08:16)
[2021-09-14] MEDS: SENNA 8.6 MG TABLET PO SCH (08:16)
[2021-09-14] MEDS: polyethylene glycoL 3350 17 GM PACKET PO SCH (08:17)
[2021-09-14] MEDS: ENOXAPARIN 40 MG/0.4 ML SYRINGE SUBQ SCH ×2 (08:17→21:16)
[2021-09-14] MEDS: DOCUSATE SODIUM 250 MG CAPSULE PO SCH (08:17)
[2021-09-14] MEDS: NYSTATIN POWDER 15 GM TOP SCH ×2 (08:17→21:17)
[2021-09-14] MEDS: FUROSEMIDE 40 MG TABLET PO SCH (08:17)
[2021-09-14 08:18] LABS: CALCIUM 9.2 mg/dL (8.5-10.3); CREATININE 0.7 mg/dL (0.6-1.2); POTASSIUM 4.2 mmol/L (3.5-5.0)
[2021-09-14 08:29] LABS: PLATELET ESTIMATE, MANUAL NORMAL (130-450,000) (NORMAL); PLATELET MORPHOLOGY NORMAL APPEARANCE (NORMAL); SLIDE REVIEW? Indicated
[2021-09-14] MEDS: oxyCODONE 5 MG TABLET PO PRN (10:39)
[2021-09-14] MEDS: ATORVASTATIN 40 MG TABLET PO SCH (21:16)
[2021-09-15] MEDS: IBUPROFEN 600 MG TABLET PO SCH ×3 (05:44→12:00)
[2021-09-15] MEDS: INSULIN GLARGINE 300 UNIT/3 ML PEN SUBQ SCH (06:18)
[2021-09-15] MEDS: INSULIN ASPART 300 UNIT/3 ML PEN SUBQ SCH ×6 (08:05→16:34)
[2021-09-15] MEDS: polyethylene glycoL 3350 17 GM PACKET PO SCH (08:08)
[2021-09-15] MEDS: ENOXAPARIN 40 MG/0.4 ML SYRINGE SUBQ SCH (08:53)
[2021-09-15] MEDS: FUROSEMIDE 40 MG TABLET PO SCH (08:54)
[2021-09-15] MEDS: LOSARTAN 50 MG TABLET PO SCH (08:54)
[2021-09-15] MEDS: TAMSULOSIN 0.4 MG CAPSULE PO SCH (08:54)
[2021-09-15] MEDS: SENNA 8.6 MG TABLET PO SCH (08:54)
[2021-09-15] MEDS: SERTRALINE 50 MG TABLET PO SCH (08:55)
[2021-09-15] MEDS: DOCUSATE SODIUM 250 MG CAPSULE PO SCH (08:55)
[2021-09-15] MEDS: CHOLECALCIFEROL 25 MCG TABLET PO SCH (08:55)
[2021-09-15] MEDS: NYSTATIN POWDER 15 GM TOP SCH (08:56)
--- NOTE | 2021-09-15 08:56 | PROVIDER PROGRESS NOTE ---
Assessment/Plan - Current Meds Current Meds: Current Medications Generic Name Dose Route Start Last Admin Trade Name Freq PRN Reason Stop Dose Admin Acetaminophen 650 mg 08/12/21 10:28 09/14/21 08:15 Acetaminophen 325 Mg Tablet PO 650 mg Q4HR PRN Administration Pain 1 to 4 Atorvastatin Calcium 80 mg 08/17/21 21:00 09/14/21 21:16 Atorvastatin 40 Mg Tablet PO 80 mg QPM JAYNA Administration Cholecalciferol 50 mcg 08/25/21 13:00 09/14/21 08:15 Cholecalciferol 25 Mcg Tablet PO 50 mcg DAILY [facility] Administration Docusate Sodium 250 - 500 mg 08/23/21 09:00 09/14/21 08:17 Docusate Sodium 250 Mg Capsule PO Not Given DAILY [facility] Enoxaparin Sodium 40 mg 08/13/21 09:00 09/14/21 21:16 Enoxaparin 40 Mg/0.4 Ml Syringe SUBQ 40 mg BID JAYNA Administration Furosemide 40 mg 09/05/21 09:00 09/14/21 08:17 Furosemide 40 Mg Tablet PO 40 mg DAILY [facility] Administration Ibuprofen 600 mg 09/10/21 12:00 09/15/21 05:44 Ibuprofen 600 Mg Tablet PO Not Given Q6HR [facility] Insulin Aspart 3 - 11 unit 08/23/21 12:45 09/15/21 08:05 Insulin Aspart 300 Unit/3 Ml Pen SUBQ Not Given 0800,1200,1700,2100 [facility] Protocol Insulin Aspart 9 unit 08/27/21 17:00 09/14/21 18:19 Insulin Aspart 300 Unit/3 Ml Pen SUBQ 9 unit TIDWM [facility] Administration Insulin Glargine 30 unit 08/29/21 18:00 09/15/21 06:18 Insulin Glargine 300 Unit/3 Ml Pen SUBQ 30 unit 0600,1800 [facility] Administration Losartan Potassium 100 mg 08/18/21 09:00 09/14/21 08:16 Losartan 50 Mg Tablet PO 100 mg DAILY JAYNA Administration Mineral Oil 1 applic 08/17/21 09:49 09/12/21 21:22 Min Oil/Dimethicon/Coconut Oil 92 Gm Tube TOP 1 applic PRN PRN Administration Skin Care Multi-Ingredient Ointment 1 applic 08/24/21 10:47 09/08/21 06:29 Zinc Oxide 20% Oint 30 Gm Tube TOP 1 applic PRN PRN Administration Skin Care Nystatin 1 applic 08/16/21 21:00 09/14/21 21:17 Nystatin Powder 15 Gm TOP 1 applic BID JAYNA Administration Oxycodone HCl 5 mg 08/12/21 10:28 09/14/21 10:39 Oxycodone 5 Mg Tablet PO 5 mg Q4HR PRN Administration Pain 5 to 7 Polyethylene Glycol 17 gm 08/16/21 17:04 09/15/21 08:08 Polyethylene Glycol 3350 17 Gm Packet PO Not Given DAILY JAYNA Senna 8.6 - 17.2 mg 08/14/21 09:00 09/14/21 08:16 Senna 8.6 Mg Tablet PO Not Given DAILY JAYNA Sertraline HCl 200 mg 08/13/21 21:00 09/14/21 08:16 Sertraline 50 Mg Tablet PO 200 mg DAILY JAYNA Administration Sodium Chloride 10 ml 08/12/21 10:28 09/08/21 14:07 Sodium Chloride Flush 0.9% 10 Ml Syringe IVP 10 ml PRN PRN Administration NEEDED PER PROVIDER ORDERS Sodium Chloride 10 ml 09/08/21 17:00 09/14/21 21:27 Sodium Chloride Flush 0.9% 10 Ml Syringe IVP 10 ml 0100,0900,1700 JAYNA Administration Tamsulosin HCl 0.4 mg 08/13/21 09:00 09/14/21 08:16 Tamsulosin 0.4 Mg Capsule PO 0.4 mg DAILY JAYNA Administration - Lab Result Fish Bone Diagrams: 09/14/21 07:49 09/14/21 07:49 Objective Vital Signs: Vital Signs - 24 hr 09/14/21 09/14/21 09/14/21 13:00 15:56 21:00 Temperature 36.7 C 36.6 C 36.8 C Heart Rate Heart Rate [ 57 L 56 L 60 Monitoring electrodes] Respiratory 22 14 19 Rate Blood Pressure 142/61 H 120/58 L 144/58 H [Left Brachial artery] Blood Pressure [Right Brachial artery] O2 Saturation 92 93 94 09/14/21 09/14/21 09/15/21 22:03 23:45 02:53 Temperature 36.6 C Heart Rate 69 54 L Heart Rate [ 62 Monitoring electrodes] Respiratory 18 Rate Blood Pressure [Left Brachial artery] Blood Pressure 150/61 H [Right Brachial artery] O2 Saturation 99 09/15/21 09/15/21 09/15/21 03:30 05:34 07:34 Temperature 36.4 C L 36.8 C Heart Rate Heart Rate [ 53 L 56 L Monitoring electrodes] Respiratory 19 19 20 Rate Blood Pressure 139/70 H [Left Brachial artery] Blood Pressure 148/69 H [Right Brachial artery] O2 Saturation 96 96 100 Oxygen O2 Source [Without Activity] Nasal cannula O2 Source [With Activity] Nasal cannula O2 Source Nasal cannula Oxygen Flow Rate 4 I&O (Last 24 Hrs): Intake and Output Totals x24h 09/13/21 09/14/21 09/15/21 23:59 23:59 23:59 Intake Total 930 810 540 Output Total 325 Balance 605 810 540 - Results Results: Laboratory Results WBC 5.4 x10^3/uL (4.8-10.8) 09/14/21 07:49 RBC 4.70 10^6/uL (4.70-6.10) 09/14/21 07:49 Hgb 11.4 g/dL (14.0-18.0) L 09/14/21 07:49 Hct 41.4 % (42.0-52.0) L 09/14/21 07:49 MCV 88.1 fL (80.0-94.0) 09/14/21 07:49 MCH 24.3 pg (27.0-31.0) L 09/14/21 07:49 MCHC 27.5 g/dL (32.0-36.0) L 09/14/21 07:49 RDW 18.3 % (12.0-15.0) H 09/14/21 07:49 Plt Count 160 10^3/uL (130-450) 09/14/21 07:49 MPV 9.4 fL (7.4-11.4) 09/14/21 07:49 Neut # (Auto) 3.4 10^3/uL (1.5-6.6) 09/14/21 07:49 Lymph # (Auto) 1.5 10^3/uL (1.5-3.5) 09/14/21 07:49 [place] # (Auto) 0.3 10^3/uL (0.0-1.0) 09/14/21 07:49 Eos # (Auto) 0.2 10^3/uL (0.0-0.7) 09/14/21 07:49 Baso # (Auto) 0.0 10^3/uL (0.0-0.1) 09/14/21 07:49 Absolute Nucleated RBC 0.00 x10^3/uL 09/14/21 07:49 Nucleated RBC % 0.0 /100WBC 09/14/21 07:49 Manual Slide Review Indicated 09/14/21 07:49 WBC Morphology NORMAL APPEARANCE (NORMAL) 09/04/21 04:06 Platelet Estimate NORMAL (130-450,000) (NORMAL) 09/14/21 07:49 Platelet Morphology NORMAL APPEARANCE (NORMAL) 09/14/21 07:49 RBC Morph Micro Appear 2+ ANISOCYTOSIS (NORMAL) 1+ HYPOCHROMASIA (NORMAL) 09/14/21 07:49 RBC Morph Micro Appear 2+ ANISOCYTOSIS (NORMAL) 1+ HYPOCHROMASIA (NORMAL) 09/14/21 07:49 Bld Gas Analysis Time 0634 08/31/21 06:26 Sample Site LEFT RADIAL 08/30/21 16:08 ABG pH 7.47 (7.35-7.45) H 08/31/21 06:26 ABG pCO2 71 mmHg (34-45) H* 08/31/21 06:26 ABG pO2 56 mmHg (80-100) L 08/31/21 06:26 ABG HCO3 50.8 mmol/L (22.0-26.0) H 08/31/21 06:26 ABG Total CO2 53.0 MMOL/L (21.0-29.0) H* 08/31/21 06:26 ABG O2 Saturation 91 % (94-98) L 08/31/21 06:26 ABG Base Excess 23.4 mmol/L (-2.0-3.0) H 08/31/21 06:26 Reynaldo Test POSITIVE 08/31/21 06:26 VBG pH 7.299 (7.31-7.41) L 09/10/21 04:32 VBG pCO2 102.1 mmHg (41-51) H 08/12/21 11:22 VBG pO2 85.8 mmHg (25-47) H 08/12/21 11:22 VBG HCO3 36.4 mmol/L (23-28) H 08/12/21 11:22 VBG Total CO2 39.5 mmol/L (24-29) H 08/12/21 11:22 VBG O2 Saturation 95.4 % (60-80) H 08/12/21 11:22 VBG Base Excess 3.6 mmol/L (-2 - +2) H 08/12/21 11:22 Ionized Calcium 1.16 mmol/L (1.15-1.33) 09/10/21 04:32 Respiration Rate 30 b/min 08/30/21 16:08 O2 Delivery Device BiPAP 08/31/21 06:26 Vent Mode 08/30/21 16:08 FiO2 50.00 08/31/21 06:26 PEEP 8 cmH2O 08/30/21 11:40 Pressure Support Vent 10 cmH2O 08/31/21 06:26 EPAP 10 cmH2O 08/31/21 06:26 IPAP 20 cmH2O 08/31/21 06:26 Sodium 142 mmol/L (135-145) 09/14/21 07:49 Potassium 4.2 mmol/L (3.5-5.0) 09/14/21 07:49 Chloride 93 mmol/L (101-111) L 09/14/21 07:49 Carbon Dioxide 41 mmol/L (21-32) H* 09/14/21 07:49 Anion Gap 8.0 (6-13) 09/14/21 07:49 BUN 21 mg/dL (6-20) H 09/14/21 07:49 Creatinine 0.7 mg/dL (0.6-1.2) 09/14/21 07:49 Estimated GFR (MDRD) 112 (>89) 09/14/21 07:49 Glucose 103 mg/dL (70-100) H 09/14/21 07:49 POC Whole Bld Glucose 99 mg/dL (70 - 100) 09/15/21 07:33 Estimat Average Glucose 146 mg/dL (70-100) H 08/13/21 14:53 Hemoglobin A1c % 6.7 % (4.27-6.07) H 08/13/21 14:53 Calcium 9.2 mg/dL (8.5-10.3) 09/14/21 07:49 Phosphorus 3.6 mg/dL (2.5-4.6) 09/10/21 04:32 Magnesium 2.1 mg/dL (1.7-2.8) 09/10/21 04:32 Total Bilirubin 0.6 mg/dL (0.2-1.0) 08/12/21 08:40 AST 14 IU/L (10-42) 08/12/21 08:40 ALT 15 IU/L (10-60) 08/12/21 08:40 Alkaline Phosphatase 119 IU/L (42-121) 08/12/21 08:40 Troponin I High Sens 27.4 ng/L (2.3-19.7) H* 08/12/21 11:22 B-Natriuretic Peptide 161 pg/mL (5-100) H 08/12/21 08:40 Total Protein 7.2 g/dL (6.7-8.2) 08/12/21 08:40 Albumin 3.2 g/dL (3.2-5.5) 08/12/21 08:40 Globulin 4.0 g/dL (2.1-4.2) 08/12/21 08:40 Albumin/Globulin Ratio 0.8 (1.0-2.2) L 08/12/21 08:40 Lipase 30 U/L (22-51) 08/12/21 08:40 Nasal Adenovirus (PCR) NOT DETECTED 08/12/21 08:40 Nasal B. parapertussis DNA (PCR) NOT DETECTED 08/12/21 08:40 Nasal Coronavir 229E PCR NOT DETECTED 08/12/21 08:40 Nasal Coronavir HKU1 PCR NOT DETECTED 08/12/21 08:40 Nasal Coronavir NL63 PCR NOT DETECTED 08/12/21 08:40 Nasal Coronavir OC43 PCR NOT DETECTED 08/12/21 08:40 Nasal Enterovir/Rhinovir PCR NOT DETECTED 08/12/21 08:40 Nasal Influenza B PCR NOT DETECTED 08/12/21 08:40 Nasal Influenza A PCR NOT DETECTED 08/12/21 08:40 Nasal Parainfluen 1 PCR NOT DETECTED 08/12/21 08:40 Nasal Parainfluen 2 PCR NOT DETECTED 08/12/21 08:40 Nasal Parainfluen 3 PCR NOT DETECTED 08/12/21 08:40 Nasal Parainfluen 4 PCR NOT DETECTED 08/12/21 08:40 Nasal RSV (PCR) NOT DETECTED 08/12/21 08:40 Nasal Screen MRSA (PCR) NEGATIVE (NEGATIVE) 08/12/21 14:00 Nasal B.pertussis DNA PCR NOT DETECTED 08/12/21 08:40 Nasal C.pneumoniae (PCR) NOT DETECTED 08/12/21 08:40 Armando Human Metapneumo PCR NOT DETECTED 08/12/21 08:40 Nasal M.pneumoniae (PCR) NOT DETECTED 08/12/21 08:40 Nasal SARS-CoV-2 (PCR) NOT DETECTED 08/12/21 08:40 - Procedures Procedures: Procedures ENDOSC POLYPECTOMY OF LG INTEST (02/27/14)
[2021-09-15] MEDS: SODIUM CHLORIDE FLUSH 0.9% 10 ML SYRINGE IVP SCH ×2 (08:57→16:34)
--- NOTE | 2021-09-15 13:55 | DISCHARGE SUMMARY ---
Discharge Summary Admit Date: 08/12/21 Discharge Date: 09/15/21 Discharging Provider: Esequiel Stokes Primary Care Provider: Jose Courtney Code Status: Attempt Resuscitation Condition at Discharge: Fair Discharge Disposition: 01 Home, Self Care - DIAGNOSES Admission Diagnoses: Acute on chronic respiratory failure with hypoxia and hypercapnia CO2 narcosis Chronic venous stasis dermatitis of both lower extremities Mild aortic stenosis Obstructive sleep apnea on BiPAP Obesity hypoventilation syndrome Controlled type 2 diabetes mellitus without complications with long-term current use of insulin Self neglect Discharge Diagnoses with Status of Each Condition: Acute on chronic respiratory failure with hypoxia and hypercapnia. Patient to continue using new bipap machine at home CO2 narcosis. Patient to continue using new bipap machine at home Chronic venous stasis dermatitis of both lower extremities Mild aortic stenosis Obstructive sleep apnea on BiPAP Obesity hypoventilation syndrome Controlled type 2 diabetes mellitus without complications with long-term current use of insulin Self neglect - HPI History of Present Illness: Per HPI: Morbidly obese male who I met in December 2020 when I admitted him for hypercapnia causing severe metabolic encephalopathy in association with acute respiratory failure with hypoxia and hypercapnia. He does not smoke. Never did. He is supposed to be on a CPAP machine but is noncompliant. He was treated with BiPAP at that admission. Started empiric antibiotic therapy for possible community- acquired pneumonia. But that was discontinued after 24 hours. Echo showed preserved ejection fraction, no diastolic dysfunction, no pulmonary hyper tension. Venous Dopplers negative for DVT. He was placed on BiPAP with good resolution of hypoxia and hypercapnea. He needed outpatient follow-up to get his own CPAP machine and we knew he would not do well once discharged and [facility]. [facility]. Also on 4 liters of 02. A walker. A life alert button. He has not been using any of it according to his son/POA. Last time son saw him was SundayAugust 08. Son and son's spent 8 hours cleaning house. His dad is not cleaning up dishes, food, clothes up and hasn't take care of himself. No garbage out for months and rats found. On Sunday he was alert, complaining of being drained of energy for months. Can't get around. Son was picking up food for him. Son filed report w APS for self neglect and told Dad he was doing it. Out of meds from NH for a while. Dad was alert, just tired that day. Moving around with a walker. Today the son went to check on him and found him down. Old Cpap was hooked up and being used next to bed and his new BiPAP was shoved under the bed. The life alert was still in a hospital chief financial officer. Dad laid on the floor since midnight all night because he couldn't get to the phone or call for help until son found him this morning. With today's visit to the emergency room he was brought in by ambulance because when he tried to get up off the sofa he slid to the floor. His legs just could not hold him up. There is no antecedent fever, chest pain, sweats, rigors. There is no cough. No change in appetite. He had been sitting on the sofa for 7 hours. Cannot tell us why he sat there for 7 hours. He does describe having more leg swelling than usual. He does have home oxygen at 4 L. In the emergency room he was evaluated by Dr. Zuluaga and was afebrile, hypertensive at 157/75, heart rate 91, respiration 26. O2 sat 97%. He had a 3 out of 6 murmur. Lung sounds that were exceedingly quiet in this very large chest wall. Grossly pitting bilateral edema with chronic venous stasis changes. He was alert and oriented. He was presented to the hospitalist service as acute respiratory failure with hypercapnea and hypoxia based on blood gases. His troponins were negative. While he was awaiting admission in the emergency r oom he became quite somnolent, and unresponsive. His initial venous blood gas was 7.2/71/64. When he became somnolent repeat venous blood gas was 7.1/102/85. Started on BiPAP in the ER. As such admission orders were changed to reflect that he was being sent to the ICU on BiPAP. [facility]. Admission chest x-ray shows cardiomegaly and mild pulmonary vascular congestion concerning for CHF. His BNP is 161. Troponin #1 was 27.9 and troponin #2 was 27.4. EKG is sinus without acute ST-T wave changes. - HOSPITAL COURSE Hospital Course: Patient was in the ICU throughout his hospital stay because he required BiPAP at night and intermittently during the day on some days. He was maintained on the hospital BiPAP machine. His home BiPAP machine was no longer working for him. Attempts to get him transferred to the NH facility down in [place] were unsuccessful due to no bed availability. He was eventually sent a new BiPAP device which initially did not seem to work but on the day before discharge the patient tolerated the new BiPAP throughout the night. Because of his hospital stay his carbon oxide level on the BMP has been as high as 52 ABG his lowest PCO2 was 70 and the highest was 139. Patient is a chronic CO2 retainer and requires the Bipap machine to keep his CO2 level as low as possible. By the time of discharge it was determined that he required 2 L/min oxygen via nasal cannula at rest to maintain his oxygen saturations around 96%. He was hypoxic at rest with room air. Oxygen saturation was 86%. On 2 L/min oxygen via nasal cannula with exertion his oxygen saturation was 90%. During sleep on his home BiPAP machine, at 2 L, his oxygen saturation was 86%. Titrating this up to 5 L/min bleed on his home BiPAP machine. It was concluded that he would require 2 L of oxygen per minute via nasal rafael javier at rest and exertion on 5 L/min bleed into his home BiPAP machine with sleep to treat his obesity hypoventilation syndrome and chronic respiratory failure. The patient has chronic lower extremity edema/ chronic venostasis dermatitis of both lower extremities. At home he is on Lasix 40 mg daily. During his hospital stay Lasix was increased to 40 mg twice daily. He was advised to keep his legs elevated. His legs were also wrapped to help with edema. It had been difficult for the patient is a cough himself at home. There was some evidence of self-neglect. Attempts to get the patient placed at a facility for long-term care has been unsuccessful. After about 34 days in the hospital the patient is eager to go home and Declined the suggestion of going somewhere for respite care while the process of placement is still in place. As a result the patient is being discharged home where he is expecting to get help from his son and to family friends with his care. During his hospital stay he was on Lantus 30 units twice daily, regular insulin 9 units 3 times daily with meals and a sliding scale insulin. Upon discharge we would resume his Lantus 30 twice daily. Maintain him on regular insulin 7 units 3 times daily with meals. He is to resume his Jardiance and Metformin. He was seen by physical therapy during his stay. He has been encouraged to make an effort to increase his activity. He understands this. Patient has mild aortic stenosis. 2D echocardiogram done January 13, 2021. - ALLERGIES Allergies/Adverse Reactions: Allergies Allergy/AdvReac Type Severity Reaction Status Date / Time No Known Drug Allergies Allergy Verified 08/12/21 08:33 - MEDICATIONS Home Medications: Ambulatory Orders Medication Instructions Recorded Confirmed Aspirin [Aspir 81] 81 mg PO HS 02/26/14 08/12/21 Atorvastatin Calcium [Lipitor] 80 mg PO DAILY 02/26/14 08/12/21 Insulin Glargine,Hum.rec.anlog 30 unit SUBQ BID 02/26/14 08/12/21 [Lantus] Metformin HCl [Fortamet] 1,000 mg PO BID 12/31/20 08/12/21 Tamsulosin [Flomax] 0.8 mg PO QPM 12/31/20 08/12/21 Empagliflozin [Jardiance] 12.5 mg PO DAILY 08/12/21 08/12/21 Furosemide [Lasix] 40 mg PO DAILY 08/12/21 08/12/21 Losartan Potassium [Cozaar] 100 mg PO DAILY 08/12/21 08/12/21 Sertraline HCl 200 mg PO DAILY 08/12/21 08/12/21 Insulin Aspart [NovoLOG] 7 units SUBQ TIDWM #0 09/15/21 08/12/21 - PHYSICAL EXAM AT DISCHARGE General Appearance: positive: Alert, Mild distress Eyes Bilateral: positive: PERRL, EOMI ENT: positive: No signs of dehydration Neck: positive: No JVD, Trachea midline Respiratory: positive: Chest non-tender, No respiratory distress, Other (Coarse breath sound) Cardiovascular: positive: Regular rate & rhythm, Systolic murmur Abdomen: positive: Non-tender, Nml bowel sounds, No distention, Other (Obese a bdomen) Back: positive: Nml inspection Skin: positive: Color nml, No rash, Warm, Dry Extremities: positive: Pedal edema (2+ lower extremity edema) Neurologic/Psychiatric: positive: Oriented x3, Mood/affect nml - LABS Result Diagrams: 09/14/21 07:49 09/14/21 07:49 - TIME SPENT Time Spent in Discharge (Minutes): 35
--- NOTE | 2021-09-15 13:57 | Discharge Plan ---
Discharge Plan Problem Reviewed?: Yes Disposition: 01 Home, Self Care Condition: Fair Diet: Cardiac Activity Restrictions: Activity as Tolerated Assistance Devices: Walker Health Concerns: You presented to the emergency department via EMS on 08/12/2021 with weakness. You had slid to the floor while trying to get up off the sofa and was unable to hold yourself up. While in the emergency department you were evaluated and noted to have high carbon dioxide level which was affecting your ability to stay awake and alert. You were admitted to the ICU and placed on the hospital BiPAP machine. There were no beds available [facility] the [facility] for [facility]. Throughout the course of your 34-day hospital stay you have required the BiPAP every night and on some days during the day. Attempts to use your home BiPAP unit were unsuccessful. It was determined that you need a new device. Attempts to get you transferred to the [facility] have been unsuccessful due to lack of available beds. You were sent a new BiPAP machine by the [facility]. On the day before discharge you were able to maintain your new BiPAP on throughout the night without any difficulties. As a result you are being discharged home to continue using your BiPAP device. It is also expected that you would continue to work with the [facility] system with regards to placement for long-term care. In the meantime your son and family friends will offer assistance at home During the course of your hospital stay you did not receive Jardiance or Metformin. You were maintained on Lantus 30 units twice daily and you received 9 units of regular insulin 3 times daily with meals. Furthermore you were on a sliding scale insulin. Upon discharge you will continue to Lantus 30 units twice daily. You have been placed on regular insulin 7 units 3 times daily with meals. It is expected that you will also resume your Jardiance and Metformin. In the course of your hospital stay you were also treated with Lasix 40 mg twice daily. By the time of discharge Lasix dose was decreased to 40 mg daily which is your normal home dose. You have been advised to keep your legs elevated when seated. You may follow-up with your primary care physician as needed. No Smoking: If you smoke, Please STOP! Call for help.
[2021-09-15 16:19] VITALS: BP 142/63
== END 2021-09-15 16:55 | disposition home or self-care (01) | DRG 189 ==
LOC: EDUNIT# → ED 08:19 → MS3 10:28 → ICU 13:40
PROVIDERS: ADMIT Specialist; ATTEND Internal Medicine
DX: J96.22 Acute and chronic respiratory failure with hypercapnia (principal); E66.2 Morbid (severe) obesity with alveolar hypoventilation; Z68.42 Body mass index [BMI] 45.0-49.9, adult; E87.2 Acidosis; J96.21 Acute and chronic respiratory failure with hypoxia; I87.2 Venous insufficiency (chronic) (peripheral); I35.0 Nonrheumatic aortic (valve) stenosis; E11.9 Type 2 diabetes mellitus without complications; I10 Essential (primary) hypertension; E78.00 Pure hypercholesterolemia, unspecified; N40.1 Benign prostatic hyperplasia with lower urinary tract symptoms; R35.0 Frequency of micturition; R60.1 Generalized edema; B37.2 Candidiasis of skin and nail; M17.12 Unilateral primary osteoarthritis, left knee; I44.30 Unspecified atrioventricular block; Z20.822 Contact with and (suspected) exposure to COVID-19; Z91.19 Patient's noncompliance with other medical treatment and regimen; Z99.81 Dependence on supplemental oxygen; Z79.82 Long term (current) use of aspirin; Z79.84 Long term (current) use of oral hypoglycemic drugs; Z79.4 Long term (current) use of insulin
CPT/HCPCS: 0202U; 36415; 36600; 71045; 73560; 80048; 80053; 82330; 82803; 82947; 83036; 83690; 83735; 83880; 84100; 84484; 85025; 87150; 93005; 94660; 97110; 97116; 97163; 97164; 97166; 97168; 97530; 99285; 99291; A6250; A9270; J1650; J1815; J7120; J8499

== ENCOUNTER 2021-09-23 11:00 | Outpatient (CLI) | payer OTHER | END 2021-09-23 23:59 | disposition left against medical advice (07) | LOC: EMS 11:00 | DX: E16.2 Hypoglycemia, unspecified (principal); R09.02 Hypoxemia ==

== ENCOUNTER 2021-09-25 12:13 | Outpatient (CLI) | payer OTHER | END 2021-09-25 12:14 | disposition short-term general hospital (02) | LOC: EMS 12:13 | DX: R53.1 Weakness (principal) | CPT/HCPCS: A0425; A0429 ==

== ENCOUNTER 2023-08-14 19:28 | Emergency (ER) | payer MEDICARE, OTHER ==
[2023-08-14] MEDS ORDERED: SERTRALINE 50 MG TABLET PO STA ×2 (20:39)
--- NOTE | 2023-08-14 20:42 | ED Physician Documentation ---
History of Present Illness - Stated complaint Stated Complaint: SOA - Chief complaint Chief Complaint: Resp - History obtained from History obtained from: Patient - Additonal information Additional information: 68-year-old gentleman here visiting pending admission to [facility] assisted [facility] in [place]. He ran out of his medications and scheduled several times by the ID and now needs refills of everything. He is feeling anxious as he has been out of his sertraline. His blood sugars have been controlled in the 90s to low 100s. PD PAST MEDICAL HISTORY - Past Medical History Cardiovascular: Hypertension, High cholesterol Respiratory: Sleep apnea, CPAP use Endocrine/Autoimmune: Type 2 diabetes GI: Hiatal hernia, Other (Umbilical hernia times years) : Benign prostate hypertrophy, Frequency HEENT: None Musculoskeletal: Osteoarthritis, Chronic back pain Derm: Other - Past Surgical History Past Surgical History: Yes General: Hiatal hernia repair - Present Medications Home Medications: Ambulatory Orders Medication Instructions Recorded Confirmed Aspirin [Aspir 81] 81 mg PO HS 02/26/14 08/12/21 Atorvastatin Calcium [Lipitor] 80 mg PO DAILY 02/26/14 08/12/21 Insulin Glargine,Hum.rec.anlog 30 unit SUBQ BID 02/26/14 08/12/21 [Lantus] Metformin HCl [Fortamet] 1,000 mg PO BID 12/31/20 08/12/21 Tamsulosin [Flomax] 0.8 mg PO QPM 12/31/20 08/12/21 Empagliflozin [Jardiance] 12.5 mg PO DAILY 08/12/21 08/12/21 Furosemide [Lasix] 40 mg PO DAILY 08/12/21 08/12/21 Losartan Potassium [Cozaar] 100 mg PO DAILY 08/12/21 08/12/21 Sertraline HCl 200 mg PO DAILY 08/12/21 08/12/21 Insulin Aspart [NovoLOG] 7 units SUBQ TIDWM #0 09/15/21 08/12/21 Aspirin [[place] Aspirin] 81 mg PO DAILY #30 ea 08/14/23 Atorvastatin Calcium 40 mg PO DAILY #30 tablet 08/14/23 Cholecalciferol (Vitamin D3) 25 mcg PO DAILY #30 cap 08/14/23 [Vitamin D3] Empagliflozin [Jardiance] 10 mg PO DAILY #30 tablet 08/14/23 Insulin Glargine [Lantus Solostar] 70 unit SUBQ BID #10 ea 08/14/23 Losartan Potassium 100 mg PO DAILY #30 tab 08/14/23 Metformin HCl 1,000 mg PO BID #60 tablet 08/14/23 Potassium Chloride 20 meq PO DAILY #30 tab 08/14/23 Sertraline HCl 2 tab PO DAILY #60 tablet 08/14/23 glipiZIDE [Glipizide] 10 mg PO BID #60 tablet 08/14/23 - Allergies Allergies/Adverse Reactions: Allergies Allergy/AdvReac Type Severity Reaction Status Date / Time No Known Drug Allergies Allergy Verified 08/14/23 19:31 - Social History Does the pt smoke?: No Smoking Status: Never smoker Does the pt drink ETOH?: Yes Does the pt have substance abuse?: No - Immunizations Immunizations are current?: Yes - POLST Patient has POLST: No POLST Status: Full Code PD ED PE NORMAL - Vitals Vital signs reviewed: Yes - General General: Alert and oriented X 3, No acute distress - Extremities Extremities: No edema, No calf tenderness / cord - Neuro Neuro: Alert and oriented X 3, Normal speech Results - Vitals Vitals: Vital Signs - 24 hr 08/14/23 19:31 Temperature 36.8 C Heart Rate 76 Respiratory 16 Rate Blood Pressure 160/90 H O2 Saturation 94 Oxygen O2 Source [Without Activity] Nasal cannula O2 Source [With Activity] Nasal cannula O2 Source Room air PD Medical Decision Making - ED course ED course: 68-year-old gentleman here for medication refill which is given pending follow- up. Departure - Departure Disposition: 01 Home, Self Care Clinical Impression: YONATAN on CPAP, HTN (hypertension), Chronic venous stasis dermatitis of both lower extremities, Controlled type 2 diabetes mellitus without complication, with long-term current use of insulin Condition: Stable Record reviewed to determine appropriate education?: Yes Prescriptions: Atorvastatin Calcium 40 mg PO DAILY #30 tablet glipiZIDE [Glipizide] 10 mg PO BID #60 tablet Empagliflozin [Jardiance] 10 mg PO DAILY #30 tablet Insulin Glargine [Lantus Solostar] 70 unit SUBQ BID #10 ea Losartan Potassium 100 mg PO DAILY #30 tab Metformin HCl 1,000 mg PO BID #60 tablet Potassium Chloride 20 meq PO DAILY #30 tab Sertraline HCl 2 tab PO DAILY #60 tablet Aspirin [[place] Aspirin] 81 mg PO DAILY #30 ea Cholecalciferol (Vitamin D3) [Vitamin D3] 25 mcg PO DAILY #30 cap Comments: I sent refills of all your medications to the [facility]. Follow-up as scheduled. Return if worse. Forms: PCP List
[2023-08-14 21:12] VITALS: BP 188/78; O2SAT 98
== END 2023-08-14 21:05 | disposition home or self-care (01) ==
LOC: ED 19:28
DX: Z76.0 Encounter for issue of repeat prescription (principal); E11.9 Type 2 diabetes mellitus without complications; Z79.4 Long term (current) use of insulin; Z79.84 Long term (current) use of oral hypoglycemic drugs; G47.33 Obstructive sleep apnea (adult) (pediatric); I10 Essential (primary) hypertension; I87.2 Venous insufficiency (chronic) (peripheral)
CPT/HCPCS: 99282; 99283; A9270

== ENCOUNTER 2024-06-17 16:28 | Emergency (ER) | payer OTHER ==
--- NOTE | 2024-06-17 17:09 | XRAY Report ---
PROCEDURE: Chest 1V INDICATIONS: dyspnea TECHNIQUE: One view of the chest was acquired. COMPARISON: 08/12/2021 FINDINGS: Surgical changes and devices: None. Lungs and pleura: No pleural effusions or pneumothorax. Lungs are clear. Mediastinum: Mediastinal contours appear normal. Heart size is normal. Bones and chest wall: No suspicious bony lesions. Overlying soft tissues appear unremarkable. IMPRESSION: No acute cardiopulmonary process. Reviewed by: Rupesh Pike MD on 06/17/2024 5:04 PM PDT Approved by: Rupesh Pike MD on 06/17/2024 5:04 PM PDT Station ID: [id number]
[2024-06-17 17:15] LABS: BASOPHILS % (AUTO) 0.3 %; EOSINOPHILS # (AUTO) 0.2 10^3/uL (0.0-0.7); EOSINOPHILS % (AUTO) 2.8 %; HCT - HEMATOCRIT 49.1 % (42.0-52.0); HGB - HEMOGLOBIN 14.6 g/dL (14.0-18.0); LYMPHOCYTES # (AUTO) 1.5 10^3/uL (1.5-3.5); LYMPHOCYTES % (AUTO) 24.9 %; MEAN CORPUSCULAR HEMOGLOBIN 24.7 pg (27.0-31.0); MEAN CORPUSCULAR HGB CONC 29.7 g/dL (32.0-36.0); MEAN CORPUSCULAR VOLUME 83.1 fL (80.0-94.0); MEAN PLATELET VOLUME 9.4 fL (7.4-11.4); MONOCYTES # (AUTO) 0.3 10^3/uL (0.0-1.0); MONOCYTES % (AUTO) 5.3 %; NEUTROPHILS % (AUTO) 65.9 %; PLT - PLATELET COUNT 172 10^3/uL (130-450); RED BLOOD COUNT 5.91 10^6/uL (4.70-6.10); RED CELL DISTRIBUTION WIDTH 16.5 % (12.0-15.0); WHITE BLOOD COUNT 6.1 x10^3/uL (4.8-10.8)
[2024-06-17 17:22] LABS: ALBUMIN 3.2 g/dL (3.2-5.5); ALBUMIN/GLOBULIN RATIO 0.9 (1.0-2.2); BILIRUBIN,TOTAL 0.3 mg/dL (0.2-1.0); CALCIUM 8.7 mg/dL (8.5-10.3); CREATININE 0.9 mg/dL (0.6-1.3); POTASSIUM 4.1 mmol/L (3.5-4.5); TOTAL PROTEIN 6.6 g/dL (6.4-8.9)
[2024-06-17 18:23] VITALS: BP 148/118; O2SAT 90
--- NOTE | 2024-06-17 18:51 | ED Physician Documentation ---
History of Present Illness - Stated complaint Stated Complaint: SOA - Chief complaint Chief Complaint: General - History obtained from History obtained from: Patient - History of Present Illness Timing: Chronic Pain level max: 0 Pain level now: 0 - Additonal information Additional information: Patient is a 69-year-old male who presents to the emergency department stating that he has a history of peripheral edema, he states that he takes medication at home for it but he does not know what and does not know his doses. No difficulty breathing, speaking or walking. He states his legs are more swollen than usual and usually needs increased diuretics to take the fluid off of his legs. No fevers. No chills. No cough or congestion. No abdominal pain. No drainage from the legs. Nothing makes it better or worse. No chest pain. He states he does not feel short of breath. Review of Systems Constitutional: denies: Fever, Chills Throat: denies: Sore throat Cardiac: denies: Chest pain / pressure, Palpitations Respiratory: denies: Dyspnea, Cough, Wheezing GI: denies: Abdominal Pain, Nausea, Vomiting, Diarrhea Skin: denies: Rash Musculoskeletal: denies: Neck pain, Back pain PD PAST MEDICAL HISTORY - Past Medical History Past Medical History: Yes Cardiovascular: Congestive heart failure, Hypertension, High cholesterol Respiratory: Sleep apnea, CPAP use Endocrine/Autoimmune: Type 2 diabetes GI: Hiatal hernia, Other : Benign prostate hypertrophy, Frequency HEENT: None Musculoskeletal: Osteoarthritis, Chronic back pain Derm: Other - Past Surgical History Past Surgical History: Yes General: Hiatal hernia repair - Present Medications Home Medications: Ambulatory Orders Medication Instructions Recorded Confirmed Aspirin [Aspir 81] 81 mg PO DAILY 02/26/14 06/17/24 Metformin HCl [Fortamet] 1,000 mg PO DAILY 12/31/20 06/17/24 Tamsulosin [Flomax] 0.4 mg PO QPM 12/31/20 06/17/24 Empagliflozin [Jardiance] 25 mg PO DAILY 08/12/21 06/17/24 Acetaminophen [Tylenol] 500 mg PO Q6HR PRN 06/17/24 06/17/24 Ammonium Lactate 1 applic TOP Q6HR PRN 06/17/24 06/17/24 Bacitracin 1 applic TOP BID 06/17/24 06/17/24 Colchicine 0.6 mg PO BID 06/17/24 06/17/24 Insulin Aspart 15 unit SUBQ TIDWM 06/17/24 06/17/24 Insulin Glargine [Lantus Solostar] 50 unit SUBQ BID 06/17/24 06/17/24 Losartan Potassium 25 mg PO DAILY 06/17/24 06/17/24 Miconazole Nitrate [Dermafungal] 106 gm TP DAILY 06/17/24 06/17/24 Petrolatum,White [Hydrophor] 100 gm TP DAILY PRN 06/17/24 06/17/24 Rosuvastatin Calcium 20 mg PO DAILY 06/17/24 06/17/24 Sennosides 2 tab PO HS PRN 06/17/24 06/17/24 Sertraline HCl 200 mg PO DAILY 06/17/24 06/17/24 Spironolactone [Aldactone] 12.5 mg PO DAILY 06/17/24 06/17/24 Spironolactone [Aldactone] 25 mg PO DAILY #7 tablet 06/17/24 Torsemide 25 mg PO DAILY 06/17/24 06/17/24 Torsemide [Soaanz] 40 mg PO DAILY #7 tablet 06/17/24 Zinc Oxide 20% Oint [Zinc Oxide] 1 applic TOP BID 06/17/24 06/17/24 - Allergies Allergies/Adverse Reactions: Allergies Allergy/AdvReac Type Severity Reaction Status Date / Time No Known Drug Allergies Allergy Verified 06/17/24 16:38 - Social History Does the pt smoke?: No Smoking Status: Never smoker Does the pt drink ETOH?: Yes Does the pt have substance abuse?: No - Immunizations Immunizations are current?: Yes - POLST Patient has POLST: No POLST Status: Full Code PD ED PE NORMAL - Vitals Vital signs reviewed: Yes - General General: Alert and oriented X 3, No acute distress - HEENT HEENT: Moist mucous membranes - Neck Neck: Supple, no meningeal sign - Cardiac Cardiac: RRR, No murmur, Strong equal pulses - Respiratory Respiratory: No respiratory distress, Clear bilaterally - Abdomen Abdomen: Soft, Non tender, Non distended - Extremities Extremities: Other (Patient has significant edema of the bilateral lower extremities, mainly from the knees down. There is no drainage. No weeping. Pitting edema present. No evidence of secondary infection. No warmth. NVI) - Neuro Neuro: Alert and oriented X 3 Results - Vitals Vitals: Vital Signs - 24 hr 06/17/24 06/17/24 16:38 18:21 Temperature 36.8 C Heart Rate 75 68 Respiratory 18 22 Rate Blood Pressure 170/64 H 148/118 H O2 Saturation 93 90 L Oxygen O2 Source [Without Activity] Nasal cannula O2 Source [With Activity] Nasal cannula O2 Source Room air - Labs Labs: Laboratory Tests 06/17/24 06/17/24 06/17/24 17:02 17:02 17:02 WBC 6.1 RBC 5.91 Hgb 14.6 Hct 49.1 MCV 83.1 MCH 24.7 L MCHC 29.7 L RDW 16.5 H Plt Count 172 MPV 9.4 Neut # (Auto) 4.0 Lymph # (Auto) 1.5 [place] # (Auto) 0.3 Eos # (Auto) 0.2 Baso # (Auto) 0.0 Absolute Nucleated RBC 0.00 Nucleated RBC % 0.0 Sodium 139 Potassium 4.1 Chloride 102 Carbon Dioxide 31 Anion Gap 6.0 BUN 19 Creatinine 0.9 Estimated GFR (MDRD) 83 L Glucose 246 H Calcium 8.7 Total Bilirubin 0.3 AST 12 ALT 13 Alkaline Phosphatase 89 B-Natriuretic Peptide 214 H Total Protein 6.6 Albumin 3.2 Globulin 3.4 Albumin/Globulin Ratio 0.9 L Lipase 24 - Rads (name of study) cxr Relevant Findings:: Final report received, See rad report PD Medical Decision Making - ED course Complexity details: reviewed results, re-evaluated patient, considered differential, d/w patient ED course: No acute findings on chest x-ray. His BNP is mildly elevated. A medication list was finally able to be obtained from his son. He has on torsemide 25 mg by mouth daily, will increase this to 40 mg by mouth daily. He is also on spironolactone 12-1/2 mg daily, we will increase this to 25 mg daily. Given 40 mg of Lasix here. Beginning to diurese well in the emergency department. No hypoxia. No respiratory distress. Speaking in full sentences. Ambulating well. No pulmonary edema on chest x-ray. No indication for admission at this time. We will prescribe increased doses of medication and have him follow-up closely with his PCP. Patient counseled regarding signs and symptoms for which I believe and urgent re-evaluation would be necessary. Patient with good understanding of and agreement to plan and is comfortable going home at this time This document was made in part using voice recognition software. While efforts are made to proofread this document, sound alike and grammatical errors may occur. Departure - Departure Disposition: 01 Home, Self Care Clinical Impression: Bilateral lower extremity edema Condition: Poor Instructions: ED Edema Legs Bilateral Follow-Up: your,doctor in 4-5 days [Other] Prescriptions: Spironolactone [Aldactone] 25 mg PO DAILY #7 tablet Torsemide [Soaanz] 40 mg PO DAILY #7 tablet Comments: Your prescription of torsemide and spironolactone were sent to the [facility] pharmacy. These increased doses will replace your current doses for the next 7 days. Please follow-up with your doctor for further care. Please return if you worsen. Forms: PCP List
[2024-06-17] MEDS: FUROSEMIDE 20 MG TABLET PO STA (18:57)
== END 2024-06-17 20:00 | disposition home or self-care (01) ==
LOC: ED 16:28
DX: I11.0 Hypertensive heart disease with heart failure (principal); I50.9 Heart failure, unspecified; E78.00 Pure hypercholesterolemia, unspecified; G47.30 Sleep apnea, unspecified; E11.9 Type 2 diabetes mellitus without complications; N40.0 Benign prostatic hyperplasia without lower urinary tract symptoms; Z79.82 Long term (current) use of aspirin; Z79.84 Long term (current) use of oral hypoglycemic drugs; Z79.4 Long term (current) use of insulin
CPT/HCPCS: 36415; 71045; 80053; 83690; 83880; 85025; 99283; 99284; A9270